=== PATIENT | female | born 1955 | race Caucasian/White ===

== ENCOUNTER → 2019-01-25 13:06 | Outpatient (CLI) | payer BC, SELFPAY ==
--- NOTE | 2019-01-25 | NVE_ITS ---
Venous Exam Indications: 729.5 Pain in limb. IMPRESSIONS 1. No evidence of deep vein thrombosis involving the left lower extremity 2. Acute superficial vein thrombosis involving the superficial veins of the left lower extremity including the lesser saphenous vein and the superficial veins of the distal thigh, where palpable knot was found. History: Left lower extremity pain. Risk factors: Hypertension. Obese. Patient states she had a pain in her left lower extremity after showering yesterday. She noticed a knot that was red and hot to the touch in the posterior lower thigh.She states she was told many years ago that she had vitamin K clotting factor. She doesn't currently take any blood thinning drugs. Left lower extremity venous duplex evaluation. Doppler flow study including spectral analysis, color and winslow scale imaging. Location: Vascular laboratory. Patient status: Outpatient. CRITICAL FINDINGS - Reported to: Dr. Zhang - Read back and verified. - 01/25/19 - 13:40 - LLE negative for DVT but + for SVT Tables: Venous flow and imaging: + + + + Location Overall Flow properties + + + + Left common femoral Patent Normal phasicity; spontaneous; normal augmentation; compressible + + + + Left saphenofemoral Patent Compressible junction + + + + Left profunda femoral Patent Compressible + + + + Left femoral Patent Normal phasicity; spontaneous; normal augmentation; compressible + + + + Left greater saphenous Patent Normal phasicity; spontaneous; normal augmentation; compressible + + + + Left popliteal Patent Normal phasicity; spontaneous; normal augmentation; compressible + + + + Left posterior tibial Patent Compressible + + + + Left peroneal Patent Compressible + + + + Left gastrocnemius Patent Compressible + + + + Left soleal Patent Compressible + + + + Left lesser saphenous Totally occluded Noncompressible
== END ==
PROVIDERS: PCP Family Medicine; Visit Provider Family Medicine
DX: M79.662 Pain in left lower leg (principal)
CPT/HCPCS: 93971

== ENCOUNTER → 2019-02-11 13:44 | Outpatient (CLI) | payer BC, SELFPAY ==
--- NOTE | 2019-02-11 14:05 | CT_ITS ---
CT angio chest HISTORY: Shortness of air ITS.REASON: HYPOXIA, MS CHANGES ORDERING PHYSICIAN: Judson Zhang PATIENT AGE: 63 years COMPARISON: None TECHNIQUE: Axial images obtained following the administration of 75 mL of Omnipaque 350 . Sagittal, and coronal reformatted images are also generated and reviewed. All CT scans at the facility use one or more dose reduction, viz: automated exposure control, ma/kV adjustment per patient size (including targeted exams where dose is matched to indication, i.e. head), or iterative reconstruction technique FINDINGS: Left lobe of the thyroid gland is slightly enlarged with some heterogeneous decreased attenuation suggesting thyroid nodule. Thyroid ultrasound suggested for further evaluation. The thyroid gland slightly deviated toward the right at this region. There is a variant origin of the right subclavian artery traversing posterior to the esophagus. There is dilatation of the origin of the right subclavian artery at 2.4 cm.. No evidence of aortic dissection or tortuosity of the distal descending aorta. No evidence of pulmonary embolus. Normal heart size. No evidence pericardial effusion. No mediastinal or hilar mass or adenopathy. Calcified granuloma is present in the right upper lobe medially. There is an unusual lobulated soft tissue mass in the right lower lobe. This begins more centrally in the right lower lobe and extends inferiorly in a glovelike appearance with fingers of the mass extending inferiorly adjacent to the segmental pulmonary arteries in the right lower lobe posteriorly. The largest AP diameter of the soft tissue lesion is 3.4 cm with the largest transverse dimension measuring 2 cm and extending cephalad to caudad for at least 4 cm. The small segmental bronchi are obliterated at this region and this may actually arise within the small bronchi expanding them. In the right lower lobe distal to the soft tissue mass there are multiple small alveolar opacities consistent with postobstructive pneumonia. No effusions are evident. There is mild scarring within the lingula. Upper abdominal images show a low dense right adrenal mass at 2.9 x 2.7 cm. Consistent with an adenoma. There is mild splenomegaly at 13 cm. Prior gastric bypass surgery. There is an isodense hepatic lesion at 1.7 cm in the right hepatic lobe anteriorly and may represent a hepatic cyst. Degenerative changes present in the thoracic spine. IMPRESSION: 1. Lobulated 4 x 3.4 x 2 cm posterior basal segment right lower lobe mass as described above which has a glove like appearance causing obliteration of the segmental bronchi with postobstructive pneumonitis. This may actually be filling and expanding the bronchi. Neoplasm is considered. Impacted bronchi with dilatation is also a consideration. Bronchoscopy suggested for further evaluation. Follow-up is recommended. 2. 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 Enlarged left lobe of the thyroid gland. Consider ultrasound for further evaluation 4. Other nonacute findings as described above including probable right adrenal adenoma
--- NOTE | 2019-02-11 14:05 | CT_ITS ---
CT head/brain wo con HISTORY: ITS.REASON: HYPOXIA, MS CHANGES ORDERING PHYSICIAN: Judson Zhang PATIENT AGE: 63 years COMPARISON: None TECHNIQUE: Axial images obtained without contrast. Brain and bone windows reviewed. All CT scans at the facility use one or more dose reduction, viz: automated exposure control, ma/kV adjustment per patient size (including targeted exams where dose is matched to indication, i.e. head), or iterative reconstruction technique. FINDINGS: No midline shift, mass effect, intracranial hemorrhage, hydrocephalus, or extra-axial fluid collection is evident. Patchy decreased attenuation is present in the periventricular regions which may be due to ischemic gliotic change from microvascular disease. Small exostosis involving the frontal bone on the left. No mastoid effusion. No sinus air-fluid levels.. IMPRESSION: No acute intracranial findings Hypoattenuation in the periventricular region which may be due to ischemic change from microvascular disease.
[2019-02-11 14:25] LABS: Blood Urea Nitrogen 21 mg/dL (7-18); Creatinine,Serum 0.76 mg/dL (0.55-1.02); Estimated Glomerular Filt Rate 77 ml/min (>60); GFR (African American) 93 ML/MIN (>60)
== END ==
PROVIDERS: Visit Provider Family Medicine
DX: R09.02 Hypoxemia (principal); R41.82 Altered mental status, unspecified
CPT/HCPCS: 36415; 70450; 71275; 82565; 84520

== ENCOUNTER → 2019-03-01 13:17 | Outpatient (CLI) | payer BC, SELFPAY ==
[2019-03-01 16:39] LABS: D-Dimer 505 ng/mL (0-400)
== END ==
PROVIDERS: Visit Provider Family Medicine
DX: I82.419 Acute embolism and thrombosis of unspecified femoral vein (principal); R79.89 Other specified abnormal findings of blood chemistry
CPT/HCPCS: 36415; 85378

== ENCOUNTER 2020-02-09 13:03 | Inpatient (IN) | payer OTHER, MEDICAID, SELFPAY ==
[2020-02-09] VITALS (17 sets, daily range): BP systolic 95–177; BP diastolic 59–86; PULSE 71–95; RESP 18–26; TEMP 36.6–37.2; O2SAT 85–98; BMI 39.4; BMI 43.7
--- NOTE | 2020-02-09 13:04 | HMH.EDGENADL ---
ED Disposition Clinical Impression: Acute respiratory failure with hypoxia and hypercapnia, Pneumonia, COPD exacerbation Disposition: Admitted As Inpatient Condition on Discharge: Serious Referrals: Provider,Referral, [Primary Care Provider] - - Critical Care Critical Care Time: Yes Attestation: On , the high probability of a clinically significant, sudden or life threatening deterioration of the following system(s) required my full and direct attention, intervention and personal management. The time I documented below is in addition to time spent performing reported procedures but includes the following listed in this critical care notation. Total Critical Care Time: 35 Vital system(s) involved:: Respiratory Failure My critical care processes included: Assessment & monitoring of V/S, Initial and Re-exams, Data Review/Interpretation, Coordinating Care, Medication Orders and management, Documentation Medical Decision Making - Tj Inquiry Pt receiving controlled substance: No Vital Signs: 02/09/20 13:04 02/09/20 13:05 02/09/20 13:55 Temperature 98.2 F Temperature Source Rectal Pulse Rate 80 Pulse Rate [Right] 81 78 Respiratory Rate 26 H Blood Pressure [Right Arm] 95/59 L 142/68 H Blood Pressure Mean [Right Arm] 71 92 Blood Pressure Source [Right Arm] Automatic Cuff Blood Pressure Position [Right Arm] Sitting 02 Sat by Pulse Oximetry 85 L 92 L 93 L Oxygen Delivery Method Nasal Cannula Nasal Cannula Aerosol Mask Oxygen Flow Rate (LPM) 4 3 02/09/20 14:15 02/09/20 14:56 Temperature Temperature Source Pulse Rate 78 Pulse Rate [Right] 76 Respiratory Rate Blood Pressure [Right Arm] 140/71 Blood Pressure Mean [Right Arm] 94 Blood Pressure Source [Right Arm] Automatic Cuff Blood Pressure Position [Right Arm] Sitting 02 Sat by Pulse Oximetry 85 L Oxygen Delivery Method BiPAP Oxygen Flow Rate (LPM) - Lab Data Lab Results 02/09/20 13:11: Specimen Source Left radial, O2 % 3lpm nc, ABG pH 7.27 L, ABG pCO2 103.2 H, ABG pO2 49.7 L, ABG HCO3 46.4 H, ABG Total CO2 49.6 H, ABG O2 Saturation 84 L*, ABG Base Excess 19.5 H, Berhane Test Acceptable 02/09/20 13:15: WBC 8.0, RBC 3.30 L, Hgb 10.9 L, Hct 35.2 L, MCV 106.7 H, MCH 33.1 H, MCHC 31.1 L, RDW 14.4, Plt Count 254, MPV 7.6, Neut % (Auto) 82.7 H, Lymph % (Auto) 11.4, [place] % (Auto) 2.6, Eos % (Auto) 1.2, Baso % (Auto) 2.1 H, Neut # (Auto) 6.6, Lymph # (Auto) 0.9, [place] # (Auto) 0.2, Eos # (Auto) 0.1, Baso # (Auto) 0.2 02/09/20 13:15: Sodium 139, Potassium 3.7, Chloride 83 L, Carbon Dioxide 55 H*, Anion Gap 4.7 L, BUN 16, Creatinine 0.40 L, Estimated GFR 161, Est GFR ( Amer) 195, Glucose 263 H, Calcium 8.5, Total Bilirubin 0.7, AST 29, ALT 18, Alkaline Phosphatase 110, Troponin I < 0.01, Total Protein 7.2, Albumin 4.2, Globulin 3.0, Albumin/Globulin Ratio 1.4 02/09/20 13:15: Lactate 1.2 02/09/20 13:27: Urine Color Yellow, Urine Appearance Clear, Urine pH 6.0, Ur Specific [place] 1.020, Urine Protein Negative, Urine Glucose (UA) 2+, Urine Ketones Negative, Urine Blood Negative, Urine Nitrate Negative, Urine Bilirubin Negative, Urine Urobilinogen 0.2, Ur Leukocyte Esterase Negative, Urine RBC Occasional, Urine WBC None, Ur Squamous Epith Cells Occasional, Urine Bacteria None Result diagrams: 02/09/20 13:15 02/09/20 13:15 Orders (Tests/Meds): ED MEDICATIONS Generic Name Dose Route Start Last Admin Trade Name Freq PRN Reason Stop Dose Admin Ceftriaxone Sodium 1 gm/ 50 mls @ 100 mls/hr 02/09/20 14:45 02/09/20 14:47 Sodium Chloride IV 02/23/20 14:44 100 mls/hr Q24H DANN Administration Protocol Azithromycin 500 mg/ Sodium 250 mls @ 250 mls/hr 02/09/20 14:45 02/09/20 15:06 Chloride IV 02/23/20 14:44 250 mls/hr Q24H DANN Administration Protocol Discontinued Medications Generic Name Dose Route Start Last Admin Trade Name Freq PRN Reason Stop Dose Admin Albuterol/Ipratropium 3 ml 02/09/20 13:20 0
--- NOTE | 2020-02-09 13:06 | ECG_ITS ---
APPROVED REPORT Exam: Resting ECG HR:84 bpm ECG Measurements Heart Rate 84 AXES PA 142 P 35 QRSd 92 QRS 76 QT 398 T 69 QTc 470 <Conclusion> Normal sinus rhythm Normal ECG Electronically signed by : Aaron Cornejo, 02/09/2020 21:53:37
--- NOTE | 2020-02-09 13:11 | XR_ITS ---
PROCEDURE: XR CHEST PORTABLE CLINICAL HISTORY: soa Shortness of air COMPARISON: CXR CHEST(2 VIEWS-NOT PORTABLE) from 05/27/[address] angio chest from 02/11/2019 XR CHEST PORTABLE from 10/21/2019 FINDINGS: Cardiomegaly without failure. There is consolidation with effusion in the right lung base. A linear opacity overlies the left upper hemithorax. May be something upon or within the patient. No acute bony abnormalities. IMPRESSION: Right lower lobe consolidation/atelectasis with effusion Dictated by: Behrane Oden MD 02/09/2020 14:23 Electronically signed by Berhane Oden MD in [place] 02/09/2020 14:23
[2020-02-09 13:32] LABS: ABG Base Excess 19.5 mmol/L (-2.4-2.3); ABG HCO3 46.4 mmhg (22.0-26.0); ABG Oxygen Saturation 84 % (90-100); ABG PH 7.27 mmol/L (7.35-7.45); ABG TCO2 49.6 mmhg (23-27)
[2020-02-09 13:34] LABS: Allen's Test Acceptable; Source Left Radial
[2020-02-09 13:37] LABS: ABG PCO2 103.2 mmhg (35.0-45.0); ABG PO2 49.7 mmhg (80-100)
[2020-02-09 13:39] LABS: Basophils # 0.2 K/mm3 (0-0.2); Basophils % 2.1 % (0.1-2.0); Eosinophils # 0.1 K/mm3 (0.0-0.4); Eosinophils % 1.2 % (0.1-12.0); Hematocrit 35.2 % (37.0-47.0); Hemoglobin 10.9 g/dL (12.2-16.2); Lymphocytes # 0.9 K/mm3 (0.7-4.5); Lymphocytes % 11.4 % (10-50); Mean Corpuscular HGB Conc 31.1 g/dL (31.8-35.4); Mean Corpuscular Hemoglobin 33.1 pg (27.0-31.2); Mean Corpuscular Volume 106.7 fl (81-99); Mean Platelet Volume 7.6 fl (7.4-10.4); Monocytes # 0.2 K/mm3 (0.1-1.0); Monocytes % 2.6 % (1.7-9.3); Neutrophils # 6.6 K/mm3 (1.8-7.8); Neutrophils % 82.7 % (37.0-80.0); Platelet Count 254 K/mm3 (142-424); Red Cell Distribution Width 14.4 % (11.5-17.5)
[2020-02-09 13:47] LABS: Lactic Acid 1.2 mmol/L (0.7-2.1)
[2020-02-09 13:48] LABS: Alanine Aminotransferase 18 U/L (12-78); Albumin Level 4.2 g/dl (3.5-5.0); Albumin/Globulin Ratio 1.4 (1.1-1.8); Alkaline Phosphatase 110 U/L (38-126); Aspartate Amino Transferase 29 U/L (14-36); Bilirubin,Total 0.7 mg/dl (0.2-1.3); Blood Urea Nitrogen 16 mg/dl (7-17); Calcium 8.5 mg/dl (8.4-10.2); Chloride 83 mmol/L (98-107); Estimated Glomerular Filt Rate 161 ml/min (>60); GFR (African American) 195 ML/MIN (>60); Glucose 263 mg/dl (74-100); Potassium 3.7 mmoL/L (3.5-5.1); Sodium 139 mmol/L (136-145); Total Protein,Serum 7.2 g/dl (6.3-8.2)
--- NOTE | 2020-02-09 13:49 | PC.NURSE ---
RT at bedside giving treatment and placing pt on biPap
--- NOTE | 2020-02-09 13:51 | PC.NURSE ---
WHILE TRIAGING PT AND OBTAINING V/S PT BECAME CYANOTIC WITH SATS IN THE 50s, IMMEDIATELY CALLED MD AT BEDSIDE, PT PLACE ON 100% NON-REBREATHER AND CAME TOO. RT CALLED FOR PT TO BE PLACE ON BIPAP AND RT AT BESIDE
[2020-02-09 13:57] LABS: Anion Gap 4.7 mEq/L (5-15); Carbon Dioxide 55 mmol/L (22.0-30.0)
[2020-02-09 13:59] LABS: Microscopic, Urine URINE MICROSCOPIC (MICROSCOPIC)
[2020-02-09 14:00] LABS: Appearance,Urine CLEAR (Clear); Bilirubin,Urine Negative (Negative); Blood, Urine Negative (Negative); Color,Urine YELLOW (Yellow); Glucose,Urine (UA) 2+ (Negative); Ketones,Urine Negative (Negative); Leukocyte Esterase,Urine Negative (Negative); Nitrate,Urine Negative (Negative); Protein,Urine Negative (Negative); Urobilinogen,Urine 0.2 EU/dl (0.2)
[2020-02-09 14:00] LABS: Troponin I < 0.01 ng/ml (0.00-0.034)
[2020-02-09 14:07] LABS: RBC,Urine Occasional #/hpf (0-3); Squamous Epithelial Cell,Urine Occasional #/hpf (0-5)
[2020-02-09 15:25] LABS: ABG HCO3 61.7 mmhg (22.0-26.0); ABG Oxygen Saturation 95 % (90-100); ABG PH 7.22 mmol/L (7.35-7.45); ABG PO2 81.5 mmhg (80-100); ABG TCO2 66.4 mmhg (23-27)
--- NOTE | 2020-02-09 15:28 | PC.NURSE ---
RT calling ABG results to Dr Harris at this time.
--- NOTE | 2020-02-09 15:29 | PC.NURSE ---
speaking to RT about blood gas results
--- NOTE | 2020-02-09 15:39 | PC.NURSE ---
speaking to Dr Melendez
[2020-02-09 15:53] LABS: Oxygen 75 %; Source L BRACHIAL; Vent Rate 20
[2020-02-09 15:54] LABS: ABG PCO2 153.2 mmhg (35.0-45.0)
--- NOTE | 2020-02-09 16:27 | P.CONPHA_ITS ---
[facility] Pharm[facility] VTE Monitoring - Patient Demographics Admission date: 02/09/20 Report Date: 02/09/20 Time: 16:27 Allergies/Adverse Reactions: Patient Allergies diclofenac Allergy (Verified 10/21/19 14:39) Unknown allergy reaction Height: 1.63 m Weight: 104.326 kg Patient Problems: Current Active Problems COPD exacerbation (Acute) Acute respiratory failure with hypoxia and hypercapnia (Acute) Pneumonia (Acute) - VTE Risk Labs: VTE Related Lab Results Hgb 10.9 g/dL (12.2-16.2) L 02/09/20 13:15 Hct 35.2 % (37.0-47.0) L 02/09/20 13:15 Plt Count 254 K/mm3 (142-424) 02/09/20 13:15 BUN 16 mg/dl (7-17) 02/09/20 13:15 Creatinine 0.40 mg/dl (0.52-1.04) L 02/09/20 13:15 - Prophylaxis VTE Prophylaxis Ordered?: Yes Types of VTE Prophylaxis: TEDS Knee High, Pharmacological Location of Applied Device: Bilateral Lower Extremeties Pharmacologic Type: Other (ELIQUIS) - VTE Diagnosis Confirmed Treatment or plan recommended: Continue Current Treatment
--- NOTE | 2020-02-09 17:20 | HMH.HP ---
*Admission Date: 02/09/20 *Chief complaint: Acute respiratory failure *History of present illness: Ms. Jung is a 64-year-old white female with a history of oxygen dependent COPD; status post right lower lobectomy for lung cancer last year who was brought in from home by EMS in acute respiratory failure. History from the ER is that she had not been feeling well for 2 or 3 days and her called EMS. On arrival to the home her oxygen sat was 93%. She initially did not want to be transported but her insisted she come to the hospital. In route she was placed on 6 L of nasal oxygen, administered a nebulizer treatment and IV Solu-Medrol. On arrival to the ER she began complaining of nausea and started dry heaving. She became cyanotic and her O2 sats dropped into the 50s. She was placed on nonrebreather mask and sats improved. Blood gas was obtained and she was found to be in hypercapnic respiratory failure. Her initial pH was 7.27 with a PCO2 of 103. Labs showed a normal white count. She had a significant anion gap of 55. Chest x-ray showed right lower lobe consolidation/atelectasis with pleural effusion. She was placed on BiPAP and admitted to the stepdown unit. The time of my exam she is a bit somnolent but does respond to questions appropriately. History is difficult to obtain because of the BiPAP. She does states she is breathing better and has no complaints of chest pain or nausea at this time. Her O2 sats are ranging from 85 to 93%. [facility] History Medical History: Reports:: Cancer (lung), Cerebrovascular Accident, Hypertension, Lung Disease (O2 dependent COPD) Denies:: Diabetes Mellitus Type 1 *Have you ever received a pneumonia vaccine?: No *Have you received a flu vaccine this season?: No Other Medical History: Reports: Other (DVT) Laterality Cases: Bilateral: Tonsillectomy Other Surgeries: Yes: Cholecystectomy, Tubal Ligation, Other (Right lower lobectomy) - *Social History Smoking Status: Former smoker # Packs/Day (cigarettes): 1 Alcohol Intake: never Last Used Substance: days (ago) *Occupational Status:: disabled Housing: house *Travel in the last 8 weeks: None Family Hx:: Unable to obtain Review of Systems - Review of Systems Review of systems:: unable to obtain (Patient is on BiPAP) Meds Home Medications Medication Instructions Recorded Confirmed Type Apixaban [Eliquis 5mg tab] 5 mg PO BID 02/09/20 02/09/20 History Aspirin [Aspirin 81mg EC Tab] 81 mg PO DAILY 02/09/20 02/09/20 History Atorvastatin Calcium [Atorvastatin 80 mg PO HS 02/09/20 02/09/20 History 80mg Tab] Ipratropium/Albuterol Sulfate 3 ml IH QIDP PRN 02/09/20 02/10/20 History [Duoneb 3mL neb] bisoproloL fumarate [Bisoprolol 5 mg PO DAILY 02/09/20 02/09/20 History Fumarate] diazePAM [diazePAM 5mg Tablet] 5 mg PO TIDP PRN 02/09/20 02/10/20 History Fluoxetine HCl 20 mg PO DAILY 02/10/20 02/10/20 History Omeprazole [Omeprazole 40mg 40 mg PO DAILY 02/10/20 02/10/20 History Capsule] Torsemide 10 mg PO DAILY 02/10/20 02/10/20 History Allergies Allergy/AdvReac Type Severity Reaction Status Date / Time diclofenac Allergy Unknown Verified 10/21/19 14:39 allergy reaction Exam Vital signs and Labs for Last 24 Hours: Temp Pulse Resp BP Pulse Ox 98.7 F 72 20 144/71 H 98 02/09/20 16:19 02/09/20 16:19 02/09/20 16:19 02/09/20 16:19 02/09/20 16:16 Laboratory Results - last 24 hr 02/09/20 13:11: Specimen Source Left radial, O2 % 3lpm nc, ABG pH 7.27 L, ABG pCO2 103.2 H, ABG pO2 49.7 L, ABG HCO3 46.4 H, ABG Total CO2 49.6 H, ABG O2 Saturation 84 L*, ABG Base Excess 19.5 H, Berhane Test Acceptable 02/09/20 13:15: WBC 8.0, RBC 3.30 L, Hgb 10.9 L, Hct 35.2 L, MCV 106.7 H, MCH 33.1 H, MCHC 31.1 L, RDW 14.4, Plt Count 254, MPV 7.6, Neut % (Auto) 82.7 H, Lymph % (Auto) 11.4, [place] % (Auto) 2.6, Eos % (Auto) 1.2, Baso % (Auto) 2.1 H, Neut # (Auto) 6.6, Lymph # (Auto) 0.9, [place] # (Auto) 0.2,
[2020-02-09 17:53] LABS: POC Glucose,Bedside 283 (70-110)
[2020-02-09 17:57] LABS: ABG HCO3 52.9 mmhg (22.0-26.0); ABG Oxygen Saturation 90 % (90-100); ABG PH 7.27 mmol/L (7.35-7.45); ABG PO2 62.4 mmhg (80-100); ABG TCO2 56.5 mmhg (23-27); Oxygen 50% %
[2020-02-09 17:58] LABS: Allen's Test ACCEPTABLE; Pressure Support BIPAP 22/10; Source Right Radial; Vent Rate 24
[2020-02-09 17:59] LABS: ABG PCO2 117.6 mmhg (35.0-45.0)
[2020-02-09 18:09] LABS: Troponin I < 0.01 ng/ml (0.00-0.034)
[2020-02-09 20:19] LABS: POC Glucose,Bedside 258 (70-110)
[2020-02-09 20:35] LABS: Troponin I < 0.01 ng/ml (0.00-0.034)
--- NOTE | 2020-02-09 20:39 | PC.NURSE ---
off bipap placed on 4 l nc to eat, o2 sats 84-85 sustained. o2 increased to 6 l nc o2 sats now sustaining 90% while eating supper. will continue to monitor.
--- NOTE | 2020-02-09 22:01 | PC.NURSE ---
patient sustaining sats of 85% on 40% fio2, fio2 increased back up to 50%. will continue to monitor.
[2020-02-10] VITALS (20 sets, daily range): BP systolic 103–167; BP diastolic 43–84; PULSE 70–98; RESP 16–27; TEMP 36.8–37.9; O2SAT 72–99; BMI 44.4; BMI 45.3; BMI 45.4
--- NOTE | 2020-02-10 03:33 | PC.NURSE ---
She has been resting in bed. Continues on bipap @ 50 FiO2. She is voiding per f/c. Her urine is pink. NSR on telemetry. VSS. Previous nurse reported that she wore 6LPM n/c while eating. She is A&Ox4.
--- NOTE | 2020-02-10 05:50 | PC.NURSE ---
Pt's O2 decreased to 72% while taking a drink of her water. Rebounded quickly once bipap was applied.
[2020-02-10 06:10] LABS: POC Glucose,Bedside 290 (70-110)
[2020-02-10 06:15] LABS: Basophils % 0.4 % (0.1-2.0); Eosinophils % 0.1 % (0.1-12.0); Hematocrit 31.8 % (37.0-47.0); Lymphocytes # 0.3 K/mm3 (0.7-4.5); Lymphocytes % 5.9 % (10-50); Mean Corpuscular HGB Conc 30.3 g/dL (31.8-35.4); Mean Corpuscular Hemoglobin 32.7 pg (27.0-31.2); Mean Corpuscular Volume 108.1 fl (81-99); Mean Platelet Volume 7.9 fl (7.4-10.4); Monocytes # 0.1 K/mm3 (0.1-1.0); Monocytes % 1.7 % (1.7-9.3); Neutrophils # 4.4 K/mm3 (1.8-7.8); Neutrophils % 91.9 % (37.0-80.0); Platelet Count 209 K/mm3 (142-424); Red Blood Count 2.94 M/mm3 (4.20-5.40); Red Cell Distribution Width 14.3 % (11.5-17.5); White Blood Count 4.8 K/mm3 (4.8-10.8)
[2020-02-10 06:22] LABS: MANUAL DIFFERENTIAL MANUAL DIFFERENTIAL (MANUAL DIFF)
[2020-02-10 06:24] LABS: Blood Urea Nitrogen 20 mg/dl (7-17); Calcium 8.4 mg/dl (8.4-10.2); Chloride 86 mmol/L (98-107); Estimated Glomerular Filt Rate 161 ml/min (>60); GFR (African American) 195 ML/MIN (>60); Glucose 279 mg/dl (74-100); Sodium 138 mmol/L (136-145)
[2020-02-10 06:31] LABS: Creatinine Clearance Estimated 43 mL/min (50-200)
[2020-02-10 06:32] LABS: Carbon Dioxide 50 mmol/L (22.0-30.0); Hemoglobin 9.7 g/dL (12.2-16.2)
[2020-02-10 06:51] LABS: Hemoglobin A1C 6.7 % (4.0-6.0)
--- NOTE | 2020-02-10 08:16 | CA_ITS ---
APPROVED REPORT EXAM: Comprehensive 2D, Doppler, and color-flow Echocardiogram Synthetic Filament Extruder: Saray Marino RVT Ht: 5 ft 1 in Wt: 246lbs BSA: 2.06 BP: 103/43 mmHg Indications: phtn,resp failure,pneumonia,htn,ex smoker,home o2,pt on bipap TDS-PT FLAT ON BACK 2D Dimensions LVOT 1.88 cm (M/F) 1.5-2.5 M-Mode Dimensions RVDd 3.30 cm (0.9-2.6) LVDd 4.50 cm (3.5-5.7) LVDs 2.97 cm (3.5-5.7) IVSd 0.92 cm (0.6-1.1) PWd 0.87 cm (0.6-1.1) EF (Teich) 63.00% FS 34.00% EDV (Teich) 92.40 mL ESV (Teich) 34.20 mL LV Diastology E/A Ratio 0.80 Mitral Valve MV A Velocity 90.00 (40-130 cm/s) Left Ventricle Left atrium is mildly enlarged, left ventricle is normal size, mild concentric left ventricular hypertrophy, visually estimated ejection fraction 55% with no regional wall motion abnormality, grade 1 diastolic dysfunction seen without tissue Doppler evidence of raise left atrial pressure. Right Ventricle Right atrium is mildly enlarged, right ventricle is moderately enlarged with normal contractility. Aortic Valve Aortic valve is grossly normal, there is no aortic stenosis aortic insufficiency. Mitral Valve Mitral valve is grossly normal, there is mild mitral regurgitation. Tricuspid Valve Tricuspid valve is grossly normal, there is mild tricuspid regurgitation, tricuspid regurgitation jet velocity is inadequate for calculation of the right ventricular systolic pressure, inferior vena cava is not well-visualized. Pulmonic Valve Pulmonic valve is grossly normal. Great Vessels Aortic root is normal size. Pericardium Small pericardial effusion and anterior echo-free space seen. Conclusion 1. Mild biatrial enlargement, normal left ventricular size, mild concentric left ventricular hypertrophy, visually estimated ejection fraction 55% with no regional wall motion abnormality, grade 1 diastolic dysfunction seen without tissue Doppler evidence of raise left atrial pressure. 2. Moderately enlarged right ventricle with normal contractility. 3. Mild mitral and tricuspid regurgitation. 4. Anterior echo-free space and small pericardial effusion noted. Electronically signed by : Matthew Hendricks, 02/10/2020 13:30:23
--- NOTE | 2020-02-10 08:26 | HMH.ACPN2 ---
<Pam Neri - Last Filed: 02/10/20 08:26> Internal Medicine - PN: Subj *Date: 02/10/20 *Time: 07:55 Interval history: The patient is resting quietly in bed with bipap in place. She arouses easily to voice and answers appropriately. She denies any pain or GI complaint. She notes occasional productive cough but feels her breathing is better this morning. Exam Vital signs and Labs for Last 24 Hours: Temp Pulse Resp BP Pulse Ox 98.3 F 80 20 103/43 L 99 02/10/20 08:00 02/10/20 06:25 02/10/20 04:00 02/10/20 06:00 02/10/20 06:25 Laboratory Results - last 24 hr 02/09/20 13:11: Specimen Source Left radial, O2 % 3lpm nc, ABG pH 7.27 L, ABG pCO2 103.2 H, ABG pO2 49.7 L, ABG HCO3 46.4 H, ABG Total CO2 49.6 H, ABG O2 Saturation 84 L*, ABG Base Excess 19.5 H, Berhane Test Acceptable 02/09/20 13:15: WBC 8.0, RBC 3.30 L, Hgb 10.9 L, Hct 35.2 L, MCV 106.7 H, MCH 33.1 H, MCHC 31.1 L, RDW 14.4, Plt Count 254, MPV 7.6, Neut % (Auto) 82.7 H, Lymph % (Auto) 11.4, [place] % (Auto) 2.6, Eos % (Auto) 1.2, Baso % (Auto) 2.1 H, Neut # (Auto) 6.6, Lymph # (Auto) 0.9, [place] # (Auto) 0.2, Eos # (Auto) 0.1, Baso # (Auto) 0.2 02/09/20 13:15: Sodium 139, Potassium 3.7, Chloride 83 L, Carbon Dioxide 55 H*, Anion Gap 4.7 L, BUN 16, Creatinine 0.40 L, Estimated GFR 161, Est GFR ( Amer) 195, Glucose 263 H, Calcium 8.5, Total Bilirubin 0.7, AST 29, ALT 18, Alkaline Phosphatase 110, Troponin I < 0.01, Total Protein 7.2, Albumin 4.2, Globulin 3.0, Albumin/Globulin Ratio 1.4 02/09/20 13:15: Lactate 1.2 02/09/20 13:27: Urine Color Yellow, Urine Appearance Clear, Urine pH 6.0, Ur Specific [place] 1.020, Urine Protein Negative, Urine Glucose (UA) 2+, Urine Ketones Negative, Urine Blood Negative, Urine Nitrate Negative, Urine Bilirubin Negative, Urine Urobilinogen 0.2, Ur Leukocyte Esterase Negative, Urine RBC Occasional, Urine WBC None, Ur Squamous Epith Cells Occasional, Urine Bacteria None 02/09/20 14:58: Specimen Source L brachial, O2 % 75, ABG pH 7.22 L*, ABG pCO2 153.2 H, ABG pO2 81.5, ABG HCO3 61.7 H, ABG Total CO2 66.4 H, ABG O2 Saturation 95, ABG Base Excess 34.0 H, Vent Rate 20, Tidal Volume bipap 24/0502/09/20 17:13: Troponin I < 0.01 02/09/20 17:41: POC Glucose 283 H 02/09/20 17:50: Specimen Source Right radial, O2 % 50%, ABG pH 7.27 L, ABG pCO2 117.6 H, ABG pO2 62.4 L, ABG HCO3 52.9 H, ABG Total CO2 56.5 H, ABG O2 Saturation 90, ABG Base Excess 26.0 H, Berhane Test Acceptable, Vent Rate 24 02/09/20 19:37: Troponin I < 0.01 02/09/20 20:12: POC Glucose 258 H 02/10/20 05:40: POC Glucose 290 H 02/10/20 05:45: Sodium 138, Potassium 4.0, Chloride 86 L, Carbon Dioxide 50 H*, Anion Gap 6.0, BUN 20 H, Creatinine 0.40 L, Estimated Creat Clear 43, Estimated GFR 161, Est GFR ( Amer) 195, Glucose 279 H, Calcium 8.4 02/10/20 05:45: WBC 4.8 D, RBC 2.94 L, Hgb 9.7 L D, Hct 31.8 L, MCV 108.1 H, MCH 32.7 H, MCHC 30.3 L, RDW 14.3, Plt Count 209, MPV 7.9, Neut % (Auto) 91.9 H, Lymph % (Auto) 5.9 L, [place] % (Auto) 1.7, Eos % (Auto) 0.1, Baso % (Auto) 0.4, Neut # (Auto) 4.4, Lymph # (Auto) 0.3 L, [place] # (Auto) 0.1, Eos # (Auto) 0.0, Baso # (Auto) 0.0 02/10/20 05:45: Hemoglobin A1c 6.7 H I & O for Last 24 hours: Intake & Output 02/07/20 02/08/20 02/09/20 02/10/20 11:59 11:59 11:59 11:59 Intake Total 1167 / 1167 Output Total 775 / 775 Balance 392 / 392 Weight 246 lb 8 oz - Constitutional no acute distress - *Routine Respiratory Exam Comments: bipap in place; generally diminished breath sounds R > L with expiratory wheezes throughout - *Routine Cardiovascular Exam Present: RRR - *Routine Abdominal Exam Present: soft, normoactive bowel sounds, obese. Absent: tenderness, distended, rebound, guarding, rigid - *Routine Extremities Exam Present: pulses intact. Absent: calf tenderness Comments: trace bilateral pedal/ankle edema - *Routine Neurological Exam Present: alert, oriented X3, moving all extremities, normal speech Assessment and P
[2020-02-10 09:01] LABS: Lymphocytes % 3 % (10-50); Monocytes % 1 % (2-9); Neutrophils % 96 % (42-76); Platelet Estimate Normal; Total Cells Counted 100
[2020-02-10 09:02] LABS: Macrocytosis 2+
[2020-02-10 09:11] LABS: ABG Base Excess 27.7 mmol/L (-2.4-2.3); ABG HCO3 52.6 mmhg (22.0-26.0); ABG Oxygen Saturation 95 % (90-100); ABG PO2 71.7 mmhg (80-100); ABG TCO2 55.3 mmhg (23-27)
[2020-02-10 09:13] LABS: Oxygen 50 %; Vent Rate 24
[2020-02-10 09:14] LABS: Allen's Test Non Applicable; Pressure Support 12; Source Left Brachial; Tidal Volume bipap 22/10
[2020-02-10 09:15] LABS: ABG PCO2 87.8 mmhg (35.0-45.0)
[2020-02-10 10:10] LABS: Microscopic, Urine URINE MICROSCOPIC (MICROSCOPIC)
[2020-02-10 10:14] LABS: Appearance,Urine TURBID (Clear); Bilirubin,Urine Negative (Negative); Blood, Urine 3+ (Negative); Color,Urine RED (Yellow); Glucose,Urine (UA) 3+ (Negative); Ketones,Urine 1+ (Negative); Leukocyte Esterase,Urine 2+ (Negative); Nitrate,Urine POSITIVE (Negative); Protein,Urine 3+ (Negative); Specific Gravity, Urine 1.015 (1.005-1.030)
[2020-02-10 10:16] LABS: Bacteria,Urine Trace /lpf; RBC,Urine TNTC #/hpf (0-3); Squamous Epithelial Cell,Urine Occasional #/hpf (0-5)
[2020-02-10 11:40] LABS: NT Pro Brain Natriuretic Pep. 408 pg/mL (0-125)
[2020-02-10 11:46] LABS: POC Glucose,Bedside 365 (70-110)
[2020-02-10 15:53] LABS: POC Glucose,Bedside 351 (70-110)
--- NOTE | 2020-02-10 16:36 | PC.NURSE ---
No acute changes noted this shift, pt has remained on bipap except for meals where she was placed on nasal cannula, pt has rested most of shift, alert and oriented x4, perrla, lung sounds are diminished t/o, absent RLL, good catheter remains in place, urine is noted to continue to be bright red in color with small clots, MD is aware, UA repeated this am, MD notified of those results, wants urine cultured and no changes to abx at this time, abd soft and nontender, active bowel sounds in all quads, 1+ nonpitting edema noted to BLE, no s/s of distress noted, vss, will continue to monitor for changes.
[2020-02-10 17:09] LABS: Hematocrit 30.7 % (37.0-47.0); Hemoglobin 9.4 g/dL (12.2-16.2)
--- NOTE | 2020-02-10 19:11 | INFXCTL.NOTE ---
report given to regulo
[2020-02-10 21:16] LABS: POC Glucose,Bedside 350 (70-110)
[2020-02-11] VITALS (30 sets, daily range): BP systolic 112–153; BP diastolic 49–89; PULSE 50–150; RESP 15–24; TEMP 36.4–37.2; O2SAT 88–99
[2020-02-11 05:58] LABS: Eosinophils % 0.2 % (0.1-12.0); Hemoglobin 8.8 g/dL (12.2-16.2); Lymphocytes # 0.4 K/mm3 (0.7-4.5); Lymphocytes % 5.5 % (10-50); Mean Corpuscular HGB Conc 30.1 g/dL (31.8-35.4); Mean Corpuscular Hemoglobin 31.8 pg (27.0-31.2); Mean Corpuscular Volume 105.7 fl (81-99); Mean Platelet Volume 7.7 fl (7.4-10.4); Monocytes # 0.3 K/mm3 (0.1-1.0); Monocytes % 4.7 % (1.7-9.3); Neutrophils # 6.1 K/mm3 (1.8-7.8); Neutrophils % 89.6 % (37.0-80.0); Platelet Count 237 K/mm3 (142-424); Red Blood Count 2.77 M/mm3 (4.20-5.40); Red Cell Distribution Width 14.5 % (11.5-17.5); White Blood Count 6.8 K/mm3 (4.8-10.8)
[2020-02-11 05:59] LABS: Hematocrit 29.2 % (37.0-47.0)
[2020-02-11 06:00] LABS: MANUAL DIFFERENTIAL MANUAL DIFFERENTIAL (MANUAL DIFF)
[2020-02-11 06:17] LABS: Hypochromasia 2+; Lymphocytes % 8 % (10-50); Macrocytosis 2+; Neutrophils % 88 % (42-76); Platelet Estimate Normal; Total Cells Counted 100
[2020-02-11 06:25] LABS: Blood Urea Nitrogen 25 mg/dl (7-17); Calcium 8.5 mg/dl (8.4-10.2); Chloride 86 mmol/L (98-107); Creatinine Clearance Estimated 43 mL/min (50-200); Estimated Glomerular Filt Rate 125 ml/min (>60); GFR (African American) 151 ML/MIN (>60); Glucose 295 mg/dl (74-100); Potassium 3.6 mmoL/L (3.5-5.1); Sodium 137 mmol/L (136-145)
[2020-02-11 06:36] LABS: Anion Gap 5.6 mEq/L (5-15); Carbon Dioxide 49 mmol/L (22.0-30.0)
[2020-02-11 06:39] LABS: POC Glucose,Bedside 305 (70-110)
--- NOTE | 2020-02-11 08:46 | HMH.ACPN2 ---
Internal Medicine - PN: Subj *Date: 02/11/20 *Time: 08:46 Interval history: Patient with no new complaints today. She is tolerating a regular diet. Off of Bi-pap now using a NC. Exam Vital signs and Labs for Last 24 Hours: Temp Pulse Resp BP Pulse Ox 97.9 F 50 L 15 153/80 H 97 02/11/20 07:40 02/11/20 06:33 02/11/20 06:00 02/11/20 06:00 02/11/20 06:33 Laboratory Results - last 24 hr 02/10/20 04:54: NT-Pro-B Natriuret Pep 408 H 02/10/20 05:45: Total Counted 100, Neutrophils % (Manual) 96 H, Lymphocytes % (Manual) 3 L, Monocytes % (Manual) 1 L, Platelet Estimate Normal, RBC Morphology Not Reportable, Macrocytosis 2+ 02/10/20 06:10: Urine Color Red, Urine Appearance Turbid, Urine pH 8.0, Ur Specific [place] 1.015, Urine Protein 3+, Urine Glucose (UA) 3+, Urine Ketones 1+, Urine Blood 3+, Urine Nitrate Positive, Urine Bilirubin Negative, Urine Urobilinogen 2.0, Ur Leukocyte Esterase 2+ A, Urine RBC Tntc, Urine WBC 5-10, Ur Squamous Epith Cells Occasional, Urine Bacteria Trace 02/10/20 08:11: Specimen Source Left brachial, O2 % 50, ABG pH 7.40, ABG pCO2 87.8 H, ABG pO2 71.7 L, ABG HCO3 52.6 H, ABG Total CO2 55.3 H, ABG O2 Saturation 95, ABG Base Excess 27.7 H, Berhane Test Non applicable, Vent Rate 24, Tidal Volume bipap 26/0702/10/20 11:28: POC Glucose 365 H* 02/10/20 15:38: POC Glucose 351 H* 02/10/20 17:03: Hgb 9.4 L, Hct 30.7 L 02/10/20 20:17: POC Glucose 350 H* 02/11/20 05:30: WBC 6.8 D, RBC 2.77 L, Hgb 8.8 L, Hct 29.2 L, MCV 105.7 H, MCH 31.8 H, MCHC 30.1 L, RDW 14.5, Plt Count 237, MPV 7.7, Neut % (Auto) 89.6 H, Lymph % (Auto) 5.5 L, [place] % (Auto) 4.7, Eos % (Auto) 0.2, Baso % (Auto) 0.0 L, Neut # (Auto) 6.1, Lymph # (Auto) 0.4 L, [place] # (Auto) 0.3, Eos # (Auto) 0.0, Baso # (Auto) 0.0, Total Counted 100, Neutrophils % (Manual) 88 H, Band Neutrophils % 4.0, Lymphocytes % (Manual) 8 L, Platelet Estimate Normal, Hypochromasia 2+, Macrocytosis 2+ 02/11/20 05:30: Sodium 137, Potassium 3.6, Chloride 86 L, Carbon Dioxide 49 H*, Anion Gap 5.6, BUN 25 H, Creatinine 0.50 L D, Estimated Creat Clear 43, Estimated GFR 125, Est GFR ( Amer) 151 D, Glucose 295 H, Calcium 8.5 02/11/20 05:41: POC Glucose 305 H* I & O for Last 24 hours: Intake & Output 02/08/20 02/09/20 02/10/20 02/11/20 23:59 23:59 23:59 23:59 Intake Total 540 / 540 1277 / 1277 320 / 320 Output Total 2850 / 2850 1400 / 1400 Balance 540 / -35 -1573 / -1573 -1080 / -1080 Weight 239 lb 4 oz 246 lb 14.684 oz - Constitutional no acute distress (conversant) - *Routine HEENT Exam Head: Present: normocephalic Eye: Present: EOMI ENT: Present: mucous membranes moist - *Routine Neck Exam Present: supple. Absent: lymphadenopathy - *Routine Respiratory Exam Present: decreased breath sounds (in the bases). Absent: wheezes - *Routine Cardiovascular Exam Present: RRR - *Routine Abdominal Exam Present: soft, normoactive bowel sounds. Absent: tenderness - *Routine Extremities Exam Present: edema (1+ bilateral legs). Absent: cyanosis, clubbing - *Routine Skin Exam Present: warm. Absent: rash - *Routine Neurological Exam Present: alert, oriented X3 Assessment and Plan (1) Acute respiratory failure with hypoxia and hypercapnia Current visit: Yes Status: Acute Category: Medical Code(s): J96.01 - Acute respiratory failure with hypoxia; J96.02 - Acute respiratory failure with hypercapnia (2) COPD exacerbation Current visit: Yes Status: Acute Category: Medical Code(s): J44.1 - Chronic obstructive pulmonary disease with (acute) exacerbation (3) Pneumonia Current visit: Yes Status: Acute Category: Medical Code(s): J18.9 - Pneumonia, unspecified organism (4) Hyperglycemia Current visit: Yes Status: Acute Category: Medical Code(s): R73.9 - Hyperglycemia, unspecified (5) Hypertension Current visit: Yes Status: Acute Category: Medical Code(s): I10 - Essential (primary) hypertension (6) History of CVA
[2020-02-11 11:54] LABS: POC Glucose,Bedside 402 (70-110)
--- NOTE | 2020-02-11 12:29 | ECG_ITS ---
APPROVED REPORT Exam: Resting ECG HR:148 bpm ECG Measurements Heart Rate 148 AXES QRSd 76 QRS 60 QT 310 T -56 QTc 486 <Conclusion> Atrial fibrillation with rapid ventricular response ST depression, consider subendocardial ischemia/ injury or digitalis effect Nonspecific T wave abnormality, probably digitalis effect Abnormal ECG Electronically signed by : Yobani Reed, 02/11/2020 22:21:32
--- NOTE | 2020-02-11 13:27 | ECG_ITS ---
APPROVED REPORT Exam: Resting ECG HR:70 bpm ECG Measurements Heart Rate 70 AXES SC 134 P 21 QRSd 88 QRS 50 QT 414 T 41 QTc 447 <Conclusion> Normal sinus rhythm NDST-T Changes Otherwise a Normal ECG Electronically signed by : Yobani Reed, 02/11/2020 22:19:44
--- NOTE | 2020-02-11 14:40 | PC.NURSE ---
at about 1220 noted patient heart rate to be irregular with a rate 130-150s. appeared to be in afib. stat ekg obtained and walked down to er at 1230. er doctor read as afib with rvr. notified md injection molding machine setter dr mccarty at 1237. md ordered 10mg bolus of cardizem iv and then to start cardizem drip and titrate to keep systolic >100. after push drip was started at 5mg/h. at 1315 noticed patient to have converted so another ekg obtained at 1327 that read normal sinus rhythm and notified md at 1330 who ordered to give 60mg po cardizem q8h and to stop drip 30mins after first dose. this was done and patient currently in normal sinus rhythm with heart rate in 60s.
--- NOTE | 2020-02-11 17:52 | PC.NURSE ---
patient has done well this shift. she has tolerated 3-4l of o2 all shift. no signs of sob, confusion or lethargy. she has slept most of day but is easy to wake up . she does ring out as needed. currently up and watching tv. states her glasses are missing. upon search of room no glasses found at this time. good bag continues to drain red with clots. still holding eliquis. since converting to normal sinus rhythm patient remains in that with a heart rate in the 60s. she has had no complaints. vitals stable will continue to monitor.
[2020-02-11 19:16] LABS: POC Glucose,Bedside 362 (70-110)
[2020-02-11 21:36] LABS: POC Glucose,Bedside 402 (70-110)
[2020-02-12] VITALS (20 sets, daily range): BP systolic 110–171; BP diastolic 49–77; PULSE 48–75; RESP 15–20; TEMP 36.7–36.9; O2SAT 89–98; BMI 35.9
--- NOTE | 2020-02-12 03:45 | PC.NURSE ---
Pt A&O. Currently resting in bed with 3L NC on. Pt wore Bipap for 3.5 hours this shift. She stated this AM that she couldn't handle it anymore and took it off. O2 sats are 94% at this time. Pt is currently Sinus [place] on telemetry. She has had declines in HR as low as upper 40s while sleeping. Pt has not c/o any discomfort. Other VSS. Will continue to monitor.
[2020-02-12 05:18] LABS: Basophils % 0.1 % (0.1-2.0); Eosinophils % 0.1 % (0.1-12.0); Hemoglobin 8.8 g/dL (12.2-16.2); Lymphocytes # 0.4 K/mm3 (0.7-4.5); Lymphocytes % 6.1 % (10-50); Mean Corpuscular HGB Conc 30.1 g/dL (31.8-35.4); Mean Corpuscular Hemoglobin 31.2 pg (27.0-31.2); Mean Corpuscular Volume 103.5 fl (81-99); Monocytes # 0.2 K/mm3 (0.1-1.0); Monocytes % 3.4 % (1.7-9.3); Neutrophils # 5.9 K/mm3 (1.8-7.8); Neutrophils % 90.3 % (37.0-80.0); Platelet Count 227 K/mm3 (142-424); Red Blood Count 2.82 M/mm3 (4.20-5.40); Red Cell Distribution Width 14.5 % (11.5-17.5); White Blood Count 6.5 K/mm3 (4.8-10.8)
[2020-02-12 05:23] LABS: Hematocrit 29.2 % (37.0-47.0)
[2020-02-12 05:25] LABS: MANUAL DIFFERENTIAL MANUAL DIFFERENTIAL (MANUAL DIFF)
[2020-02-12 05:43] LABS: Blood Urea Nitrogen 26 mg/dl (7-17); Calcium 8.5 mg/dl (8.4-10.2); Chloride 87 mmol/L (98-107); Estimated Glomerular Filt Rate 125 ml/min (>60); GFR (African American) 151 ML/MIN (>60); Glucose 319 mg/dl (74-100); Potassium 3.5 mmoL/L (3.5-5.1); Sodium 136 mmol/L (136-145)
--- NOTE | 2020-02-12 05:49 | PC.NURSE ---
RN notified of weight loss
[2020-02-12 06:03] LABS: Anion Gap 6.5 mEq/L (5-15); Carbon Dioxide 46 mmol/L (22.0-30.0); Creatinine Clearance Estimated 80 mL/min (50-200)
[2020-02-12 06:07] LABS: Lymphocytes % 3 % (10-50); Neutrophils % 91 % (42-76); Platelet Estimate Normal; Total Cells Counted 100
[2020-02-12 06:08] LABS: Hypochromasia 3+; Macrocytosis 2+
[2020-02-12 06:25] LABS: POC Glucose,Bedside 310 (70-110)
--- NOTE | 2020-02-12 08:22 | HMH.ACPN2 ---
Internal Medicine - PN: Subj *Date: 02/12/20 *Time: 08:22 Interval history: Patient with no new complaints today. She did go into a. fib with RVR yesterday. She converted fairly quickly back to NSR after a dose of IV Cardizem. Less blood in Greco catheter today. She used Bi-pap for a short time while sleeping last night. Exam Vital signs and Labs for Last 24 Hours: Temp Pulse Resp BP Pulse Ox 98.1 F 65 20 130/67 94 L 02/12/20 04:00 02/12/20 08:00 02/12/20 08:00 02/12/20 08:00 02/12/20 08:00 Laboratory Results - last 24 hr 02/11/20 11:24: POC Glucose 402 H* 02/11/20 16:40: POC Glucose 362 H* 02/11/20 21:14: POC Glucose 402 H* 02/12/20 04:50: WBC 6.5, RBC 2.82 L, Hgb 8.8 L, Hct 29.2 L, MCV 103.5 H, MCH 31.2, MCHC 30.1 L, RDW 14.5, Plt Count 227, MPV 8.0, Neut % (Auto) 90.3 H, Lymph % (Auto) 6.1 L, [place] % (Auto) 3.4, Eos % (Auto) 0.1, Baso % (Auto) 0.1, Neut # (Auto) 5.9, Lymph # (Auto) 0.4 L, [place] # (Auto) 0.2, Eos # (Auto) 0.0, Baso # (Auto) 0.0, Total Counted 100, Neutrophils % (Manual) 91 H, Band Neutrophils % 6.0, Lymphocytes % (Manual) 3 L, Platelet Estimate Normal, Hypochromasia 3+, Macrocytosis 2+ 02/12/20 04:50: Sodium 136, Potassium 3.5, Chloride 87 L, Carbon Dioxide 46 H*, Anion Gap 6.5, BUN 26 H, Creatinine 0.50 L, Estimated Creat Clear 80, Estimated GFR 125, Est GFR ( Amer) 151, Glucose 319 H, Calcium 8.5 02/12/20 06:11: POC Glucose 310 H* I & O for Last 24 hours: Intake & Output 0502/10/20 02/11/20 02/12/20 23:59 23:59 23:59 23:59 Intake Total 540 / 540 1277 / 1277 1703 / 1703 Output Total 2850 / 2850 2175 / 2175 Balance 540 / -35 -1573 / -1573 -472 / -472 Weight 239 lb 4 oz 246 lb 14.684 oz 195 lb 1 oz Microbiology Reports for the Last 24 Hours: Microbiology 02/09/20 13:15 Blood Blood Culture - Preliminary NO GROWTH AFTER 48 HOURS 02/09/20 13:15 Blood Blood Culture - Preliminary NO GROWTH AFTER 48 HOURS 02/10/20 06:10 Urine,Clean Catch Urine Culture - Preliminary NO GROWTH AFTER 24 HOURS - Constitutional no acute distress - *Routine HEENT Exam Head: Present: normocephalic Eye: Present: EOMI ENT: Present: mucous membranes moist - *Routine Neck Exam Present: supple. Absent: lymphadenopathy - *Routine Respiratory Exam Present: decreased breath sounds (in the bases). Absent: wheezes - *Routine Cardiovascular Exam Present: RRR - *Routine Abdominal Exam Present: soft, normoactive bowel sounds. Absent: tenderness - *Routine Extremities Exam Present: edema (1+ bilateral lower extremites). Absent: cyanosis, clubbing - *Routine Skin Exam Present: warm. Absent: rash - *Routine Neurological Exam Present: alert, oriented X3 Assessment and Plan (1) Acute respiratory failure with hypoxia and hypercapnia Current visit: Yes Status: Acute Category: Medical Code(s): J96.01 - Acute respiratory failure with hypoxia; J96.02 - Acute respiratory failure with hypercapnia (2) COPD exacerbation Current visit: Yes Status: Acute Category: Medical Code(s): J44.1 - Chronic obstructive pulmonary disease with (acute) exacerbation (3) Pneumonia Current visit: Yes Status: Acute Category: Medical Code(s): J18.9 - Pneumonia, unspecified organism (4) Hyperglycemia Current visit: Yes Status: Acute Category: Medical Code(s): R73.9 - Hyperglycemia, unspecified (5) Hypertension Current visit: Yes Status: Acute Category: Medical Code(s): I10 - Essential (primary) hypertension (6) History of CVA (cerebrovascular accident) Current visit: Yes Status: Acute Category: Medical Code(s): Z86.73 - Personal history of transient ischemic attack (TIA), and cerebral infarction without residual deficits (7) Morbid obesity Current visit: Yes Status: Acute Category: Medical Code(s): E66.01 - Morbid (severe) obesity due to excess calories
--- NOTE | 2020-02-12 11:56 | PC.NURSE ---
glucometer reading of 545. ordered stat lab. patient is not symptomatic. will alert md with reult of glucose.
--- NOTE | 2020-02-12 12:10 | PC.NURSE ---
lunch trays on floor and patient requesting to eat. called and reported the glucometer result to md medicare contact specialist. md stated to give patient 40 units of the humalog at this time
[2020-02-12 13:08] LABS: Glucose,Random 572 mg/dL (74-100)
--- NOTE | 2020-02-12 13:19 | PC.NURSE ---
md is aware of elevated glucose from call earlier. will continue to monitor patient fsbs
--- NOTE | 2020-02-12 18:25 | PC.NURSE ---
patient continues to maintain well on 3-4l of o2. blood still noted in urine. rings out as needed. higher fsbs this shift but after humalog has come down. has had no complaints. vitals stable. will continue to monitor.
[2020-02-12 18:41] LABS: POC Glucose,Bedside 370 (70-110)
[2020-02-12 18:41] LABS: POC Glucose,Bedside 545 (70-110)
[2020-02-12 20:55] LABS: POC Glucose,Bedside 330 (70-110)
[2020-02-13] VITALS (19 sets, daily range): BP systolic 95–190; BP diastolic 47–86; PULSE 45–80; RESP 16–20; TEMP 36.4–36.9; O2SAT 78–98; BMI 43.4
--- NOTE | 2020-02-13 05:26 | PC.NURSE ---
No acute changes since prior assessment. Pt A&O x4. Has rested well this shift with no complaints. Pt has remained on O2 NC this shift. She is currently on 91% on 2L . RA sat was 78%. Pt continues to become bracycardic while sleeping with HR declining in the upper 40s. F/C draining to bedside with bloody urine. Less clots observed. No other concerns at this time. Will continue to monitor.
[2020-02-13 06:06] LABS: POC Glucose,Bedside 324 (70-110)
[2020-02-13 06:15] LABS: Hematocrit 30.1 % (37.0-47.0); Hemoglobin 9.3 g/dL (12.2-16.2); Lymphocytes # 0.4 K/mm3 (0.7-4.5); Lymphocytes % 5.8 % (10-50); Mean Corpuscular Hemoglobin 31.9 pg (27.0-31.2); Mean Corpuscular Volume 102.8 fl (81-99); Mean Platelet Volume 7.8 fl (7.4-10.4); Monocytes # 0.2 K/mm3 (0.1-1.0); Monocytes % 3.9 % (1.7-9.3); Neutrophils # 5.4 K/mm3 (1.8-7.8); Neutrophils % 90.3 % (37.0-80.0); Platelet Count 224 K/mm3 (142-424); Red Blood Count 2.93 M/mm3 (4.20-5.40); Red Cell Distribution Width 14.7 % (11.5-17.5)
[2020-02-13 06:20] LABS: MANUAL DIFFERENTIAL MANUAL DIFFERENTIAL (MANUAL DIFF)
[2020-02-13 06:21] LABS: Chloride 89 mmol/L (98-107); Potassium 3.6 mmoL/L (3.5-5.1); Sodium 136 mmol/L (136-145)
[2020-02-13 06:24] LABS: Blood Urea Nitrogen 23 mg/dl (7-17); Creatinine Clearance Estimated 80 mL/min (50-200); Estimated Glomerular Filt Rate 125 ml/min (>60); GFR (African American) 151 ML/MIN (>60)
[2020-02-13 06:25] LABS: Calcium 8.2 mg/dl (8.4-10.2); Glucose 334 mg/dl (74-100)
[2020-02-13 06:39] LABS: Anion Gap 5.6 mEq/L (5-15); Carbon Dioxide 45 mmol/L (22.0-30.0)
[2020-02-13 08:25] LABS: Lymphocytes % 6 % (10-50); Macrocytosis 1+; Neutrophils % 94 % (42-76); Platelet Estimate Normal; Total Cells Counted 100
--- NOTE | 2020-02-13 08:35 | HMH.ACPN2 ---
<Kerline Rendon - Last Filed: 02/13/20 08:35> Internal Medicine - PN: Subj *Date: 02/13/20 *Time: 08:35 Interval history: Patient says she is doing better and would like to go home. She is eating well without problems. She has been up to the bedside commode and did sit in a chair for brief period of time yesterday. She felt she tolerated this well. She slept with nasal O2 throughout the night. She denies chest pain and shortness of breath. She has a periodic nonproductive cough. She continues with a Greco catheter and hematuria. Nurses states that she has been in sinus rhythm throughout the night. She occasionally drops down into the 40s. Hemoglobin/ hematocrit are stable at 9.3 and 30.1. O2 sats have been in the 90s with nasal O2 at 2 L/min. Exam Vital signs and Labs for Last 24 Hours: Temp Pulse Resp BP Pulse Ox 97.6 F 54 L 20 95/47 L 94 L 02/13/20 04:00 02/13/20 06:18 02/13/20 04:00 02/13/20 04:00 02/13/20 06:18 Laboratory Results - last 24 hr 02/12/20 11:55: POC Glucose 545 H* 02/12/20 12:53: Random Glucose 572 H* 02/12/20 16:24: POC Glucose 370 H* 02/12/20 20:08: POC Glucose 330 H* 02/13/20 05:50: WBC 6.0, RBC 2.93 L, Hgb 9.3 L, Hct 30.1 L, MCV 102.8 H, MCH 31.9 H, MCHC 31.0 L, RDW 14.7, Plt Count 224, MPV 7.8, Neut % (Auto) 90.3 H, Lymph % (Auto) 5.8 L, [place] % (Auto) 3.9, Eos % (Auto) 0.0 L, Baso % (Auto) 0.0 L, Neut # (Auto) 5.4, Lymph # (Auto) 0.4 L, [place] # (Auto) 0.2, Eos # (Auto) 0.0, Baso # (Auto) 0.0, Total Counted 100, Neutrophils % (Manual) 94 H, Lymphocytes % (Manual) 6 L, Platelet Estimate Normal, Macrocytosis 1+ 02/13/20 05:50: Sodium 136, Potassium 3.6, Chloride 89 L, Carbon Dioxide 45 H*, Anion Gap 5.6, BUN 23 H, Creatinine 0.50 L, Estimated Creat Clear 80, Estimated GFR 125, Est GFR ( Amer) 151, Glucose 334 H, Calcium 8.2 L 02/13/20 05:50: POC Glucose 324 H* I & O for Last 24 hours: Intake & Output 02/10/20 02/11/20 02/12/20 02/13/20 11:59 11:59 11:59 11:59 Intake Total 1167 / 1167 970 / 970 1743 / 1743 1464 / 1464 Output Total 1600 / 1600 2650 / 2650 1974 / 1974 3700 / 3700 Balance -433 / -433 -1680 / -1680 -232 / -232 -2236 / -2236 Weight 246 lb 8 oz 246 lb 14.684 oz 195 lb 1 oz 236 lb 5 oz Microbiology Reports for the Last 24 Hours: Microbiology 02/10/20 06:10 Urine,Clean Catch Urine Culture - Final NO GROWTH AFTER 48 HOURS - Constitutional no acute distress Comments: Appears comfortable sitting up in the bed eating her breakfast. - *Routine Respiratory Exam Comments: And expiratory wheeze throughout. - *Routine Cardiovascular Exam Present: RRR Comments: Monitor shows sinus rhythm in the 70s - *Routine Abdominal Exam Present: soft, normoactive bowel sounds. Absent: tenderness - *Routine Exam Comments: Greco catheter. Hematuria - *Routine Extremities Exam Absent: edema, calf tenderness - *Routine Neurological Exam Present: alert, oriented X3 Assessment and Plan (1) Acute respiratory failure with hypoxia and hypercapnia Current visit: Yes Status: Acute Category: Medical Code(s): J96.01 - Acute respiratory failure with hypoxia; J96.02 - Acute respiratory failure with hypercapnia (2) COPD exacerbation Current visit: Yes Status: Acute Category: Medical Code(s): J44.1 - Chronic obstructive pulmonary disease with (acute) exacerbation (3) Pneumonia Current visit: Yes Status: Acute Category: Medical Code(s): J18.9 - Pneumonia, unspecified organism (4) Hyperglycemia Current visit: Yes Status: Acute Category: Medical Code(s): R73.9 - Hyperglycemia, unspecified (5) Hypertension Current visit: Yes Status: Acute Category: Medical Code(s): I10 - Essential (primary) hypertension (6) History of CVA (cerebrovascular accident) Current visit: Yes Status: Acute Category: Medical Code(s): Z86.73 - Personal history of transient ischemic attack (TIA), and cerebra
--- NOTE | 2020-02-13 08:44 | XR_ITS ---
PROCEDURE: XR CHEST PORTABLE CLINICAL HISTORY: Pneumonia; hypoxia COMPARISON: CXR CHEST(2 VIEWS-NOT PORTABLE) from 05/27/[address] angio chest from 02/11/2019 XR CHEST PORTABLE from 10/21/2019 XR CHEST PORTABLE from 02/09/2020 FINDINGS: Cardiomegaly without failure. No change right-sided pleural effusion. The right basilar atelectasis has shown some improvement. The left lung is clear. No acute bony abnormalities. IMPRESSION: No change right-sided effusion with some improvement in the right basilar atelectasis/airspace disease Dictated by: Berhane Oden MD 02/13/2020 09:45 Electronically signed by Berhane Oden MD in [place] 02/13/2020 09:45
--- NOTE | 2020-02-13 08:51 | HMH.ACPN ---
Internal Medicine - PN: Subj *Date: 02/13/20 *Time: 08:51 Exam Vital signs and Labs for Last 24 Hours: Temp Pulse Resp BP Pulse Ox 97.6 F 54 L 20 95/47 L 94 L 02/13/20 04:00 02/13/20 06:18 02/13/20 04:00 02/13/20 04:00 02/13/20 06:18 Laboratory Results - last 24 hr 02/12/20 11:55: POC Glucose 545 H* 02/12/20 12:53: Random Glucose 572 H* 02/12/20 16:24: POC Glucose 370 H* 02/12/20 20:08: POC Glucose 330 H* 02/13/20 05:50: WBC 6.0, RBC 2.93 L, Hgb 9.3 L, Hct 30.1 L, MCV 102.8 H, MCH 31.9 H, MCHC 31.0 L, RDW 14.7, Plt Count 224, MPV 7.8, Neut % (Auto) 90.3 H, Lymph % (Auto) 5.8 L, [place] % (Auto) 3.9, Eos % (Auto) 0.0 L, Baso % (Auto) 0.0 L, Neut # (Auto) 5.4, Lymph # (Auto) 0.4 L, [place] # (Auto) 0.2, Eos # (Auto) 0.0, Baso # (Auto) 0.0, Total Counted 100, Neutrophils % (Manual) 94 H, Lymphocytes % (Manual) 6 L, Platelet Estimate Normal, Macrocytosis 1+ 02/13/20 05:50: Sodium 136, Potassium 3.6, Chloride 89 L, Carbon Dioxide 45 H*, Anion Gap 5.6, BUN 23 H, Creatinine 0.50 L, Estimated Creat Clear 80, Estimated GFR 125, Est GFR ( Amer) 151, Glucose 334 H, Calcium 8.2 L 02/13/20 05:50: POC Glucose 324 H* I & O for Last 24 hours: Intake & Output 02/10/20 02/11/20 02/12/20 02/13/20 23:59 23:59 23:59 23:59 Intake Total 1277 / 1277 1703 / 1703 1224 / 1224 600 / 600 Output Total 2850 / 2850 2175 / 2175 3600 / 3600 1300 / 1300 Balance -1573 / -1573 -472 / -472 -2376 / -2376 -700 / -700 Weight 112 kg 88.479 kg 107.19 kg Microbiology Reports for the Last 24 Hours: Microbiology 02/10/20 06:10 Urine,Clean Catch Urine Culture - Final NO GROWTH AFTER 48 HOURS Assessment and Plan (1) Acute respiratory failure with hypoxia and hypercapnia Current visit: Yes Status: Acute Category: Medical Code(s): J96.01 - Acute respiratory failure with hypoxia; J96.02 - Acute respiratory failure with hypercapnia (2) COPD exacerbation Current visit: Yes Status: Acute Category: Medical Code(s): J44.1 - Chronic obstructive pulmonary disease with (acute) exacerbation (3) Pneumonia Current visit: Yes Status: Acute Category: Medical Code(s): J18.9 - Pneumonia, unspecified organism (4) Hyperglycemia Current visit: Yes Status: Acute Category: Medical Code(s): R73.9 - Hyperglycemia, unspecified (5) Hypertension Current visit: Yes Status: Acute Category: Medical Code(s): I10 - Essential (primary) hypertension (6) History of CVA (cerebrovascular accident) Current visit: Yes Status: Acute Category: Medical Code(s): Z86.73 - Personal history of transient ischemic attack (TIA), and cerebral infarction without residual deficits (7) Morbid obesity Current visit: Yes Status: Acute Category: Medical Code(s): E66.01 - Morbid (severe) obesity due to excess calories (8) Urinary tract infection with hematuria Current visit: Yes Status: Acute Category: Medical Code(s): N39.0 - Urinary tract infection, site not specified; R31.9 - Hematuria, unspecified (9) Atrial fibrillation with rapid ventricular response Current visit: Yes Status: Acute Category: Medical Code(s): I48.91 - Unspecified atrial fibrillation The patient's infection will respond to the chosen ABx?: Yes Is the patient receiving the right drug, dose, and route?: Yes Could a more targeted ABx be ordered?: No (WBC WNL)
[2020-02-13 11:58] LABS: POC Glucose,Bedside 495 (70-110)
--- NOTE | 2020-02-13 12:37 | HMH.CONS ---
*Admission Date: 02/09/20 *Reason for consult:: Gross hematuria *History of present illness: Patient is a 64-year-old white female with a history of lung cancer admitted on February 08 for increasing shortness of breath. She was in respiratory distress at the time of her injury to the ER and she was admitted. She has been better regarding her breathing and blood patient's urine was clear on admission did become bright red bloody after Greco catheter was placed. It has by nurse report become darker over the weekend and then it is light red at the bedside in the Greco bag today. Patient gives a 2-year history of intermittent blood upon wiping and sometimes in the toilet bowl. She states that 2 years ago she saw her batch freezer who recommended a D&C at the time for vaginal bleeding but she elected to not proceed with that. Patient is on Eliquis due to previous history of CVA. The Eliquis has been held over the last couple of days. She has not had a CT scan this admission. Labs are significant for markedly elevated glucose levels. Hemoglobin 9.3 creatinine 0.5. Urine culture from February 09 was negative for bacteria. Her urinalysis on admission showed no evidence of blood. [facility] History Medical History: Reports:: Cancer (lung), Cerebrovascular Accident, Diabetes Mellitus Type 2, Hyperlipidemia, Hypertension, Lung Disease (O2 dependent COPD) Denies:: Diabetes Mellitus Type 1, Internal Pacemaker *Have you ever received a pneumonia vaccine?: Yes *Have you received a flu vaccine this season?: Yes Other Medical History: Reports: Other (DVT) Laterality Cases: Bilateral: Tonsillectomy Other Surgeries: Yes: Cholecystectomy, Tubal Ligation, Other (Right lower lobectomy). No: Pacemaker - *Social History Smoking Status: Former smoker # Packs/Day (cigarettes): 1 Smoking End Date: 04/04/2019 Alcohol Intake: never Last Used Substance: days (ago) *Occupational Status:: disabled Housing: house Household Members: spouse *Travel in the last 8 weeks: None Family Hx:: Unable to obtain Meds Home Medications Medication Instructions Recorded Confirmed Type Apixaban [Eliquis 5mg tab] 5 mg PO BID 02/09/20 02/09/20 History Aspirin [Aspirin 81mg EC Tab] 81 mg PO DAILY 02/09/20 02/09/20 History Atorvastatin Calcium [Atorvastatin 80 mg PO HS 02/09/20 02/09/20 History 80mg Tab] Ipratropium/Albuterol Sulfate 3 ml IH QIDP PRN 02/09/20 02/10/20 History [Duoneb 3mL neb] bisoproloL fumarate [Bisoprolol 5 mg PO DAILY 02/09/20 02/09/20 History Fumarate] diazePAM [diazePAM 5mg Tablet] 5 mg PO TIDP PRN 02/09/20 02/10/20 History Fluoxetine HCl 20 mg PO DAILY 02/10/20 02/10/20 History Omeprazole [Omeprazole 40mg 40 mg PO DAILY 02/10/20 02/10/20 History Capsule] Torsemide 10 mg PO DAILY 02/10/20 02/10/20 History Allergies Allergy/AdvReac Type Severity Reaction Status Date / Time diclofenac Allergy Unknown Verified 10/21/19 14:39 allergy reaction Exam Vital signs and Labs for Last 24 Hours: Temp Pulse Resp BP Pulse Ox 97.6 F 66 20 128/47 L 93 L 02/13/20 04:00 02/13/20 12:00 02/13/20 12:00 02/13/20 12:00 02/13/20 12:00 Laboratory Results - last 24 hr 02/12/20 11:55: POC Glucose 545 H* 02/12/20 12:53: Random Glucose 572 H* 02/12/20 16:24: POC Glucose 370 H* 02/12/20 20:08: POC Glucose 330 H* 02/13/20 05:50: WBC 6.0, RBC 2.93 L, Hgb 9.3 L, Hct 30.1 L, MCV 102.8 H, MCH 31.9 H, MCHC 31.0 L, RDW 14.7, Plt Count 224, MPV 7.8, Neut % (Auto) 90.3 H, Lymph % (Auto) 5.8 L, [place] % (Auto) 3.9, Eos % (Auto) 0.0 L, Baso % (Auto) 0.0 L, Neut # (Auto) 5.4, Lymph # (Auto) 0.4 L, [place] # (Auto) 0.2, Eos # (Auto) 0.0, Baso # (Auto) 0.0, Total Counted 100, Neutrophils % (Manual) 94 H, Lymphocytes % (Manual) 6 L, Platelet Estimate Normal, Macrocytosis 1+ 02/13/20 05:50: Sodium 136, Potassium 3.6, Chloride 89 L, Carbon Dioxide 45 H*, Anion Gap 5.6, BUN 23 H, Creatinine 0.50 L, Estimated Creat Clear 80, Estimated GFR 125, Est GFR (Af
--- NOTE | 2020-02-13 13:07 | US_ITS ---
PROCEDURE: US KIDNEY CLINICAL INDICATION: hematuria COMPARISON: No exams were available for comparison FINDINGS: Right kidney is 11 x 6 x 7 cm. No hydronephrosis, renal mass or other significant anomaly. The left kidney is 12 x 6 x 6 cm. No hydronephrosis apparent. There is a 4 cm cyst in the upper pole IMPRESSION: 4 cm left renal cyst otherwise negative bilateral renal ultrasound Dictated by: Berhane Oden MD 02/13/2020 15:08 Electronically signed by Berhane Oden MD in [place] 02/13/2020 15:08
--- NOTE | 2020-02-13 15:35 | DIET.NUTRFU ---
Intakes have improved with breathing, BG high- ~400 yesterday and today.
--- NOTE | 2020-02-13 16:58 | PC.NURSE ---
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 Lung sounds are diminished in bl bases, abd soft and nontender, active bowel sounds in all quads, pt has been up and showered today with full linen change, alert and oriented x4, perrla, no s/s of distress noted, vital signs have remained stable, nsr per telemetry, will continue to monitor.
[2020-02-13 17:01] LABS: POC Glucose,Bedside 371 (70-110)
--- NOTE | 2020-02-13 19:13 | PC.NURSE ---
report given to justin
[2020-02-13 20:23] LABS: POC Glucose,Bedside 414 (70-110)
[2020-02-14] VITALS (13 sets, daily range): BP systolic 117–143; BP diastolic 54–72; PULSE 49–75; RESP 16–20; TEMP 36.4–36.8; O2SAT 92–98; BMI 41.5
--- NOTE | 2020-02-14 06:18 | PC.NURSE ---
NO ACUTE CHANGES NOTED. PT HAS RESTED WELL THIS SHIFT. DENIES ANY DISCOMFORT AT THIS TIME. VSS.SHE IS CURRENTLY ON O2 2L NC. LUNGS REMAIN DIMINISHED T/O. SHE IS CURRENTLY NSR ON TELEMETRY. PERIODS ON SINUS YAZMIN NOTED AT TIMES. F/C DRAINING TO BEDSIDE WITH CLOUDY, BLOODY URINE NOTED. MEDICATIONS ADMINISTERED PER DEC. NS INFUSING @ 50 ML/HR. NEW IV PLACEMENT #20 IN RFA. CALL LIGHT WITHIN REACH, SAFETY MEASURES IN PLACE. WILL CONTINUE TO MONITOR.
[2020-02-14 07:03] LABS: POC Glucose,Bedside 334 (70-110)
--- NOTE | 2020-02-14 08:13 | HMH.ACPN2 ---
<Kerline Rendon - Last Filed: 02/14/20 08:13> Internal Medicine - PN: Subj *Date: 02/14/20 *Time: 08:13 Interval history: Patient states that she did not sleep. She is well and is enjoying the food. She denies chest pain. Her breathing is stable. She was up and out of bed yesterday and tolerated well. She states she did take a shower which made her feel better. She is continues with a Greco catheter and urine seems to be clearing. She was seen by Dr. Anne who discussed total hematuria work-up. She had a renal ultrasound yesterday. He will follow today. Exam Vital signs and Labs for Last 24 Hours: Temp Pulse Resp BP Pulse Ox 98.0 F 52 L 19 130/54 L 98 02/14/20 07:53 02/14/20 06:11 02/14/20 06:00 02/14/20 06:00 02/14/20 06:11 Laboratory Results - last 24 hr 02/13/20 05:50: Total Counted 100, Neutrophils % (Manual) 94 H, Lymphocytes % (Manual) 6 L, Platelet Estimate Normal, Macrocytosis 1+ 02/13/20 11:48: POC Glucose 495 H* 02/13/20 16:44: POC Glucose 371 H* 02/13/20 20:15: POC Glucose 414 H* 02/14/20 06:10: POC Glucose 334 H* I & O for Last 24 hours: Intake & Output 02/11/20 02/12/20 02/13/20 02/14/20 11:59 11:59 11:59 11:59 Intake Total 970 / 970 1743 / 1743 1464 / 1464 1270 / 1270 Output Total 2650 / 2650 1974 / 1974 3700 / 5700 4300 / 4300 Balance -1680 / -1680 -232 / -232 -2236 / -4236 -3030 / -3030 Weight 246 lb 14.684 oz 195 lb 1 oz 236 lb 5 oz 225 lb 6.551 oz Radiology Reports for the Last 24 Hours: 02/13/2020 renal ultrasound IMPRESSION: 4 cm left renal cyst otherwise negative bilateral renal ultrasound - Constitutional no acute distress Comments: Sitting up in the bed eating her breakfast. Appears comfortable and is breathing easily. Remains on nasal O2. - *Routine Respiratory Exam Comments: Diminished breath sounds posteriorly with soft expiratory wheeze throughout. - *Routine Cardiovascular Exam Present: RRR Comments: Monitor continues to show sinus rhythm. At rest heart rate is in the high 40s and 50s - *Routine Abdominal Exam Present: soft. Absent: normoactive bowel sounds, tenderness - *Routine Extremities Exam Absent: edema, calf tenderness - *Routine Neurological Exam Present: alert, oriented X3 Assessment and Plan (1) Acute respiratory failure with hypoxia and hypercapnia Current visit: Yes Status: Acute Category: Medical Code(s): J96.01 - Acute respiratory failure with hypoxia; J96.02 - Acute respiratory failure with hypercapnia (2) COPD exacerbation Current visit: Yes Status: Acute Category: Medical Code(s): J44.1 - Chronic obstructive pulmonary disease with (acute) exacerbation (3) Pneumonia Current visit: Yes Status: Acute Category: Medical Code(s): J18.9 - Pneumonia, unspecified organism (4) Hyperglycemia Current visit: Yes Status: Acute Category: Medical Code(s): R73.9 - Hyperglycemia, unspecified (5) Hypertension Current visit: Yes Status: Acute Category: Medical Code(s): I10 - Essential (primary) hypertension (6) History of CVA (cerebrovascular accident) Current visit: Yes Status: Acute Category: Medical Code(s): Z86.73 - Personal history of transient ischemic attack (TIA), and cerebral infarction without residual deficits (7) Morbid obesity Current visit: Yes Status: Acute Category: Medical Code(s): E66.01 - Morbid (severe) obesity due to excess calories (8) Urinary tract infection with hematuria Current visit: Yes Status: Acute Category: Medical Code(s): N39.0 - Urinary tract infection, site not specified; R31.9 - Hematuria, unspecified (9) Atrial fibrillation with rapid ventricular response Current visit: Yes Status: Acute Category: Medical Code(s): I48.91 - Unspecified atrial fibrillation (10) Hematuria Current visit: Yes Status: Acute Category: Medical Code(s): R31.9 - Hematuria, unspecified - Assessment and plan all Dx Assessm
--- NOTE | 2020-02-14 10:23 | HMH.CONFU ---
Internal Medicine - PN: Subj *Date: 02/14/20 *Time: 10:23 Interval history: Pt sleeping. Urine blood-tinged in good with small clot. Exam Vital signs and Labs for Last 24 Hours: Temp Pulse Resp BP Pulse Ox 98.0 F 51 L 17 138/62 97 02/14/20 07:53 02/14/20 09:57 02/14/20 09:12 02/14/20 08:00 02/14/20 09:57 Laboratory Results - last 24 hr 02/13/20 11:48: POC Glucose 495 H* 02/13/20 16:44: POC Glucose 371 H* 02/13/20 20:15: POC Glucose 414 H* 02/14/20 06:10: POC Glucose 334 H* I & O for Last 24 hours: Intake & Output 02/11/20 02/12/20 02/13/20 02/14/20 23:59 23:59 23:59 23:59 Intake Total 1703 / 1703 1224 / 1224 1137 / 1137 733 / 733 Output Total 2175 / 2175 3600 / 3600 4100 / 4100 1500 / 1500 Balance -472 / -472 -2376 / -2376 -2963 / -2963 -767 / -767 Weight 88.479 kg 107.19 kg 102.244 kg Narrative: Well-nourished white female in no apparent distress Head is normocephalic Normal respiratory effort Abdomen normal to visual inspection Assessment and Plan (1) Acute respiratory failure with hypoxia and hypercapnia Current visit: Yes Status: Acute Category: Medical Code(s): J96.01 - Acute respiratory failure with hypoxia; J96.02 - Acute respiratory failure with hypercapnia (2) COPD exacerbation Current visit: Yes Status: Acute Category: Medical Code(s): J44.1 - Chronic obstructive pulmonary disease with (acute) exacerbation (3) Pneumonia Current visit: Yes Status: Acute Category: Medical Code(s): J18.9 - Pneumonia, unspecified organism (4) Hyperglycemia Current visit: Yes Status: Acute Category: Medical Code(s): R73.9 - Hyperglycemia, unspecified (5) Hypertension Current visit: Yes Status: Acute Category: Medical Code(s): I10 - Essential (primary) hypertension (6) History of CVA (cerebrovascular accident) Current visit: Yes Status: Acute Category: Medical Code(s): Z86.73 - Personal history of transient ischemic attack (TIA), and cerebral infarction without residual deficits (7) Morbid obesity Current visit: Yes Status: Acute Category: Medical Code(s): E66.01 - Morbid (severe) obesity due to excess calories (8) Urinary tract infection with hematuria Current visit: Yes Status: Acute Category: Medical Code(s): N39.0 - Urinary tract infection, site not specified; R31.9 - Hematuria, unspecified (9) Atrial fibrillation with rapid ventricular response Current visit: Yes Status: Acute Category: Medical Code(s): I48.91 - Unspecified atrial fibrillation (10) Hematuria Current visit: Yes Status: Acute Category: Medical Code(s): R31.9 - Hematuria, unspecified Gross hematuria started with placement of the Good catheter placement during this admission. Urine is slightly blood-tinged and a small clot is noted in the tubing. A renal ultrasound showed only a small simple renal cyst there is no evidence of stones or masses obstruction. Patient appears to be doing better regarding her breathing and cystoscopy is recommended as an outpatient next Thursday. Hominis her urine remains slightly blood-tinged she may go home and her Good may be removed prior to discharge home and I will arrange a follow-up with cystoscopy under local anesthetic. It would be nice to keep her off the Brilinta for a few more days if possible but if not possible she may restart it.
--- NOTE | 2020-02-14 11:15 | PC.NURSE ---
Left message with Dr Acuna nurse that patients glucose is 454 and per sliding scale I am notifying him for further instruction/
[2020-02-14 11:35] LABS: POC Glucose,Bedside 454 (70-110)
--- NOTE | 2020-02-14 15:36 | HMH.PHAINT ---
DISCHARGE COUNSELING COMPLETED.
--- NOTE | 2020-02-16 13:19 | HMH.DCSUM ---
General - General Admission date:: 02/09/20 <NanyChet Kennedy - 03/01/20 18:18> 02/09/20 <Aundrea Plaza - 02/16/20 13:30> Discharge date: 02/14/20 <Aundrea Plaza - 02/16/20 13:30> HPI HPI: Ms. Jung is a 64-year-old white female with a history of oxygen dependent COPD; status post right lower lobectomy for lung cancer last year who was brought in from home by EMS in acute respiratory failure. History from the ER is that she had not been feeling well for 2 or 3 days and her called EMS. On arrival to the home her oxygen sat was 93%. She initially did not want to be transported, but her insisted she come to the hospital. In route she was placed on 6 L of nasal oxygen, administered a nebulizer treatment and IV Solu-Medrol. On arrival to the ER she began complaining of nausea and started dry heaving. She became cyanotic and her O2 sats dropped into the 50s. She was placed on a nonrebreather mask and sats improved. Blood gas was obtained and she was found to be in hypercapnic respiratory failure. Her initial pH was 7.27 with a PCO2 of 103. Labs showed a normal white count. She had a significant anion gap of 55. Chest x-ray showed right lower lobe consolidation/atelectasis with pleural effusion. She was placed on BiPAP and admitted to the stepdown unit. <Aundrea Plaza - 02/16/20 13:30> Hospital Course Hospital Course: The patient's history was difficult to obtain due to her BiPAP. She was breathing better and had no complaints of chest pain or nausea. Her oxygen sats were ranging from 85 to 93%. She was empirically started on IV Rocephin and Zithromax as well as steroids. Blood sugars were covered with sliding scale insulin. An echo was ordered to rule out pulmonary hypertension. The echo showed an EF of 55% with grade 1 diastolic dysfunction. Her blood gases improved on the BiPAP. She did develop gross hematuria in her Greco bag and a repeat urinalysis showed 2+ leukocyte esterase in addition to the blood. A urine culture was ordered and she was continued on antibiotics. She was able to be weaned off of the BiPAP onto nasal cannula. Her Eliquis was held, but her H&H decreased after the adams hematuria. The patient went into A. fib with rapid ventricular response and converted quickly back to normal sinus rhythm after dose of IV Cardizem. She he began having less blood in her Greco and was only using BiPAP for short periods at night while sleeping. Her urine and blood culture showed no growth. She was able to be weaned to nasal oxygen and denied any chest pain or shortness of breath. She remained in sinus rhythm and her hemoglobin and hematocrit remained stable. Her steroids were tapered and urology was consulted due to the hematuria. Dr. Anne saw the patient and she reported to him that she had some occasional blood upon wiping for up to 2 years. 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 Urinalysis on admission was clear and the blood began after the Greco catheter was inserted. Her urine did appear to be clearing. She had a renal ultrasound showing a 4 cm left renal cyst but the ultrasound was otherwise negative. She was able to get up and out of bed as well as take a shower. She was transitioned to p.o. steroids and her respiratory status was stable. She was seen again by Dr. Anne and he wanted to perform a cystoscopy on an outpatient basis once the patient was discharged. He felt she could go home and her Greco could be removed prior to discharge. He also wanted her to remain off of her Brilinta for a few more days. The patient was discharged home and will follow up with her primary care physician as well as Dr. Anne. She was discharged on Ceftin along with Cardizem. <Aundrea Plaza - 02/16/20 13:30> Objective Vital signs: Temp Pulse Resp BP Pulse Ox 98.3 F 55 L 18 131/72 95 02/14/20 15:55 02/14/20 15:55 02/14/20 15:55 02/14/20 15:55 02/14/20
== END 2020-02-14 16:18 | disposition home or self-care (01) | DRG 189 ==
LOC: ER 15:52 → 2ND 15:59
PROVIDERS: Family Medicine; Admitting Provider Family Medicine; Emergency Provider Emergency Medicine; Visit Provider Family Medicine
DX: J96.01 Acute respiratory failure with hypoxia (principal); J18.9 Pneumonia, unspecified organism; J44.0 Chronic obstructive pulmonary disease with (acute) lower respiratory infection; J44.1 Chronic obstructive pulmonary disease with (acute) exacerbation; N39.0 Urinary tract infection, site not specified; Z68.41 Body mass index [BMI] 40.0-44.9, adult; J96.02 Acute respiratory failure with hypercapnia; Z87.891 Personal history of nicotine dependence; Z85.118 Personal history of other malignant neoplasm of bronchus and lung; Z90.2 Acquired absence of lung [part of]; I10 Essential (primary) hypertension; Z99.81 Dependence on supplemental oxygen; I48.91 Unspecified atrial fibrillation; R31.9 Hematuria, unspecified; E66.01 Morbid (severe) obesity due to excess calories; Z79.01 Long term (current) use of anticoagulants; Z79.51 Long term (current) use of inhaled steroids; R73.9 Hyperglycemia, unspecified; Z79.899 Other long term (current) drug therapy
CPT/HCPCS: 94660; 36415; 71045; 76770; 80048; 80053; 81001; 82803; 82947; 82962; 83036; 83605; 83880; 84484; 85007; 85014; 85018; 85025; 87040; 87086; 93005; 93306; 94640; 94761; 96365; 96367; 99285; J0456

== ENCOUNTER → 2020-02-18 13:11 | Outpatient (CLI) | payer OTHER, MEDICAID, SELFPAY ==
[2020-02-19 08:31] LABS: Covid-19 Nasal PCR Sendout UK NOT DETECTED
== END ==
PROVIDERS: Visit Provider Urology
DX: Z03.818 Encounter for observation for suspected exposure to other biological agents ruled out (principal)
CPT/HCPCS: U0003

== ENCOUNTER 2020-02-20 08:27 | Day surgery (SDC) | payer OTHER, MEDICAID, SELFPAY ==
[2020-02-20 09:33] VITALS: BP 152/83; PULSE 52; RESP 18; TEMP 36.2; O2SAT 98; BMI 44.9
[2020-02-20 09:55] LABS: POC Glucose,Bedside 354 (70-110)
[2020-02-20 10:11] VITALS: BP 127/67; PULSE 64; RESP 18; TEMP 36.8; O2SAT 98
[2020-02-20 10:34] VITALS: BP 127/67; PULSE 64; RESP 18; O2SAT 98
--- NOTE | 2020-02-20 10:35 | PC.NURSE ---
Pt left without folder with copies of discharge instructions. RN reviewed discharge instructions with pt and prior to discharge and they verbalized understanding.
--- NOTE | 2020-02-20 11:40 | P.OP_ITS ---
Date of procedure: 02/20/20 Pre-op Diagnosis:: Gross hematuria Post-op Diagnosis:: Bladder tumor Procedure performed:: Flexible cystourethroscopy Surgeon:: Andrew Anne MD Anesthesia: local Estimated blood loss (mL): 0 Clinical Note:: 64-year-old white female seen as a hospital consultation last week for gross hematuria. Hematuria was noted after Greco catheter was placed. She states she has had some previous blood on the tissue after wiping but denies any blood in the toilet bowl. She does have a history of some uterine bleeding. Operative findings:: Small bladder tumor in the posterior bladder. Operative note:: Patient taken to the treatment room after informed consent. On the stretcher she was placed into the frog-leg position. She was prepped and draped in the standard surgical fashion and 2% lidocaine placed into the urethra. After few minutes the vaginal orifice was examined there was some blood at the urethral meatus and it was difficult to tell if it was vaginal or from the urethra. We flexible cystoscope introduced into the urethral meatus passed into the bladder without difficulty. The bladder was examined in a systematic fashion. There was a small shallow bladder tumor in the leftward aspect of the posterior bladder. About 1 cm in size. There was no active bleeding at the site p resently. No other abnormalities were noted. Ureteral orifices in their normal anatomic position with clear reflux of urine. Bladder neck and urethra were normal. Scope then placed into the vaginal orifice and there is no evidence of any bleeding or clot in the proximal vagina. Scope removed patient tolerated procedure well no complications. We discussed the findings and we will get her set up for a TURBT under general anesthetic at her earliest convenience. Condition: stable Disposition: same day Specimens:: None Complications:: None
== END 2020-02-20 10:37 | disposition home or self-care (01) ==
LOC: OUTP 08:35
PROVIDERS: PCP Family Medicine; Visit Provider Urology
PROC: (CPT 52000; principal; 2020-02-20 09:30)
DX: D49.4 Neoplasm of unspecified behavior of bladder (principal); R31.0 Gross hematuria; Z79.01 Long term (current) use of anticoagulants; Z79.899 Other long term (current) drug therapy
CPT/HCPCS: 52000; 82962

== ENCOUNTER → 2020-03-02 08:34 | Outpatient (CLI) | payer MEDICAID, SELFPAY ==
[2020-03-02 11:03] LABS: Coronavirus 19 IgG Antibody Negative (Negative); Coronavirus 19 IgM Antibody Negative (Negative)
== END ==
PROVIDERS: Visit Provider Urology
DX: Z01.818 Encounter for other preprocedural examination (principal); R31.9 Hematuria, unspecified
CPT/HCPCS: 36415; 86328

== ENCOUNTER 2020-03-05 08:52 | Day surgery (SDC) | payer MEDICAID, SELFPAY ==
[2020-03-02 10:16] VITALS: BMI 44.9
[2020-03-05] VITALS (12 sets, daily range): BP systolic 104–138; BP diastolic 54–63; PULSE 61–71; RESP 16–20; TEMP 36.1–43; O2SAT 93–99
[2020-03-05 10:19] LABS: POC Glucose,Bedside 382 (70-110)
--- NOTE | 2020-03-05 10:53 | SUR.PREOP ---
repeat of ROSM=716. reported to Luis Manuel ELECTRONIC DESIGN ENGINEER
[2020-03-05 10:59] LABS: POC Glucose,Bedside 337 (70-110)
--- NOTE | 2020-03-05 11:30 | SUR.PREOP ---
repeat MEJC=[id number]. rpeort to Madelaine COIL FINISHER
[2020-03-05 11:35] LABS: POC Glucose,Bedside 283 (70-110)
[2020-03-05 12:13] LABS: POC Glucose,Bedside 243 (70-110)
--- NOTE | 2020-03-05 12:33 | HMH.ANESCL ---
[facility] Anesthesia Checklist - Patient Identification Patient Identification: Arm Band - Structural Data Admitted From: Home Planned Operative Procedure/s: TURBT Consent for Planned Operative Procedure(s) Verified: Yes Verified Documents: Surgical Consent, History and Physical - NPO Status Verified Time NPO: 00:00 - Additional verifications Anesthesia Reactions: No Hx Blood Transfusions: No Blood Transfusion Reaction: No - Airway Assessment C-Spine Mobility Assessed: Yes (mp2) TMJ Mobility Assessed: Yes Dentition: Poor Dentition - Neurological Assessment Level of Consciousness: Awake, Alert - Anesthesia Plan Anesthesia Risk discussed: Yes Anesthesia Plan: Verified ASA Class: III Anesthesia Type: General [facility] History I have reviewed the patient's past medical history: Yes Medical History: Reports:: Arrhythmia (afib), Cancer (rt lung), Cerebrovascular Accident, Diabetes Mellitus Type 2, Hyperlipidemia, Hypertension, Lung Disease (O2 dependent COPD) Denies:: Diabetes Mellitus Type 1, Internal Pacemaker, MRSA, Seizures *Have you ever received a pneumonia vaccine?: No *Have you received a flu vaccine this season?: Yes Other Medical History: Reports: Other (DVT). Denies: Blood Transfusion Reaction Anesthesia experience/problems:: nac Laterality Cases: Bilateral: Tonsillectomy Other Surgeries: Yes: Cholecystectomy, Tubal Ligation, Other (Right lower lobectomy). No: Pacemaker Amputation: No Fractures: No - *Social History Educational Level: Attended College Smoking Status: Never smoker # Packs/Day (cigarettes): 1 Alcohol Intake: never Substance Use Type: denies use *Occupational Status:: disabled Housing: house Household Members: spouse *Travel in the last 8 weeks: None Family Hx:: Cancer, Coronary Artery Disease, Stroke
[2020-03-05 12:50] LABS: POC Glucose,Bedside 207 (70-110)
--- NOTE | 2020-03-05 12:53 | HMH.ANESI ---
[facility] Anesthesia Record Part I Intake, IV Amount: 1,000 Estimated blood loss (mL): 0 Urine output (mL): 0 Blood Pressure: 127/60 SaO2: 93 Pulse Rate: 68 Respiratory Rate: 16 Temperature: 98 F Patient is:: Drowsy Stable to PACU at:: 12:40
--- NOTE | 2020-03-05 13:11 | PC.NURSE ---
1248-checked fsbs with results of 207-notified AARON Burkett
--- NOTE | 2020-03-05 14:20 | PC.NURSE ---
1314-detailed report called to ÁNGELA Thornton 1316-pt transported to post op via stretcher w/michael rails up and left in care of ÁNGELA Thornton with bed locked in lowest position, vss, pt stable
--- NOTE | 2020-03-05 15:34 | HMH.OPNOTE ---
Date of procedure: 03/05/20 Pre-op Diagnosis:: Bladder tumor Post-op Diagnosis:: Same Procedure performed:: TURBT less than 1 cm Surgeon:: Andrew Anne MD FAMILY SERVICES ASSISTANT:: Jorge Luis Luna Anesthesia: GETBoubacar Estimated blood loss (mL): 0 Clinical Note:: 64-year-old white female with recent cystoscopic finding of a small bladder tumor near the left ureteral orifice. She presents today for resection. Operative findings:: Small papillary findings noted medial to the left ureteral orifice. Operative note:: Patient taken to the operating room after informed consent was obtained. Preoperatively her blood sugar was in the 300s and she was given meds to decrease the blood sugar. She was taken to the operating room and placed on the operating table in the supine position. General anesthesia was administered, preoperative antibiotics and sequential compression devices placed. She was then placed into the dorsal lithotomy position and prepped and draped in the standard surgical fashion. A 22 Edmond passed into the urethra and into the bladder without difficulty. The bladder again surveyed in a systematic fashion. The only notable finding was that of the previously noted papillary lesion at the left trigone. The cystoscope removed and our 26 [place] resectoscope sheath with obturator passed into the urethra. The obturator removed and our resectoscope with a 24 cutting loop was placed through the sheath. The tumor was resected in its entirety and the base of the tumor was fulgurated lightly due to its proximity to the left ureteral orifice. Specimen was passed off and there was urine output from the left ureteral orifice after the procedure. Scope removed and a 16 [place] Greco catheter passed without difficulty. Patient tolerated procedure well there are no complications he was discharged to recovery in stable condition. Condition: stable Disposition: PACU Specimens:: Bladder tumor Complications:: None
--- NOTE | 2020-03-05 17:57 | HMH.ANESII ---
[facility] Anesthesia Record Part II Discharge Time: 14:15 Destination: Surgical Day Care (OP Surgery) PACU nurse assessment reviewed?: No Patient Condition:: Good Anesthesia Complications:: None Swallowing reflex intact?: Yes Cyanosis?: No Blood Pressure: 119/60 Pulse Rate: 65 Temperature: 97.4 F Mental Status: Alert & Oriented Pain level:: 0 Nausea and/or vomitting:: None Intake, IV Amount: 0
== END 2020-03-05 14:09 | disposition home or self-care (01) ==
LOC: OR 08:53
PROVIDERS: PCP Family Medicine; Visit Provider Urology
PROC: 0TBB8ZZ Excision of Bladder, Via Natural or Artificial Opening Endoscopic (ICD-10-PCS; CPT 52234; principal; 2020-03-05 10:30)
DX: D30.3 Benign neoplasm of bladder; Z90.49 Acquired absence of other specified parts of digestive tract; E11.9 Type 2 diabetes mellitus without complications; I10 Essential (primary) hypertension; J44.9 Chronic obstructive pulmonary disease, unspecified; Z87.891 Personal history of nicotine dependence; Z79.82 Long term (current) use of aspirin; Z79.899 Other long term (current) drug therapy; E78.5 Hyperlipidemia, unspecified; I49.9 Cardiac arrhythmia, unspecified
CPT/HCPCS: 52234; 82962; 96374; J2405

== ENCOUNTER → 2020-04-12 13:51 | Outpatient (CLI) | payer MEDICAID, SELFPAY ==
--- NOTE | 2020-04-12 13:53 | CT_ITS ---
PROCEDURE: CT CHEST W CON CLINCAL INDICATION: follow up lung cancer Follow-up lung cancer COMPARISON: [facility] CT angio chest from 02/11/2019 TECHNIQUE: IV Contrast: 75ml Optiray 350 Axial images obtained with sagittal and coronal reformats. All CT scans at the facility use one or more dose reduction, viz: automated exposure control, ma/kV adjustment per patient size (including targeted exams where dose is matched to indication, i.e. head), or iterative reconstruction technique. FINDINGS: HEART AND MEDIASTINAL STRUCTURES: There is a left lobe of the thyroid gland is enlarged with heterogeneous density. No mediastinal or hilar mass is evident. There is a 1 cm lymph node in the right pericardial region LUNGS AND PLEURAL SPACES: Centrilobular emphysema with COPD there are postsurgical changes with surgical clips in the right infrahilar region from prior right lower lobectomy. There is pleural thickening in the right lower lung zone posteriorly. Lobular soft tissue mass in the right lower lobe is no longer apparent BONY STRUCTURES: No acute bony abnormalities apparent. UPPER ABDOMEN: Fatty liver. Splenomegaly at 15 cm. Postsurgical changes of the stomach. This 3 cm right adrenal nodule measuring -9 Hounsfield units consistent with an adenoma. Left renal cyst. Surgical clips are present in the gallbladder fossa. ADDITIONAL FINDINGS: No other significant abnormalities. IMPRESSION: Status post right lower lobectomy with postsurgical changes. No convincing evidence of tumor recurrence. Other nonacute findings as described above. Dictated by: Berhane Oden MD 04/13/2020 10:53 Electronically signed by Berhane Oden MD in [place] 04/13/2020 10:53
[2020-04-12 14:38] LABS: Potassium 3.3 mmoL/L (3.5-5.1); Sodium 131 mmol/L (136-145)
[2020-04-12 14:40] LABS: Chloride 78 mmol/L (98-107)
[2020-04-12 14:41] LABS: Blood Urea Nitrogen 12 mg/dl (7-17); Estimated Glomerular Filt Rate 101 ml/min (>60); GFR (African American) 122 ML/MIN (>60)
[2020-04-12 14:42] LABS: Calcium 8.7 mg/dl (8.4-10.2)
[2020-04-12 14:50] LABS: Anion Gap 13.3 mEq/L (5-15)
[2020-04-12 14:51] LABS: Carbon Dioxide 43 mmol/L (22.0-30.0); Glucose 515 mg/dl (74-100)
== END ==
PROVIDERS: PCP Family Medicine; Visit Provider Family Medicine
DX: R07.9 Chest pain, unspecified (principal)
CPT/HCPCS: 36415; 71260; 80048; Q9967

== ENCOUNTER 2020-04-12 17:39 | Emergency (ER) | payer MEDICAID, SELFPAY ==
--- NOTE | 2020-04-12 17:56 | PC.NURSE ---
FSBS 427
[2020-04-12 17:57] VITALS: BP 112/87; PULSE 84; RESP 18; TEMP 36.8; O2SAT 75; BMI 44.9
--- NOTE | 2020-04-12 18:04 | XR_ITS ---
PROCEDURE: XR CHEST PORTABLE CLINICAL HISTORY: sob Severe shortness of COMPARISON: XR CHEST PORTABLE from 10/21/2019 XR CHEST PORTABLE from 02/09/2020 XR CHEST PORTABLE from 02/13/2020 CT CHEST W CON from 04/12/2020 FINDINGS: The cardiomediastinal silhouette and pulmonary vascularity are within normal limits. There is a small right pleural effusion. The remaining lungs are clear. No acute bony abnormalities. IMPRESSION: Small right pleural effusion Dictated by: Berhane Oden MD 04/13/2020 08:20 Electronically signed by Berhane Oden MD in [place] 04/13/2020 08:20
[2020-04-12 18:12] LABS: Basophils % 0.4 % (0.1-2.0); Eosinophils # 0.2 K/mm3 (0.0-0.4); Eosinophils % 2.4 % (0.1-12.0); Hematocrit 36.2 % (37.0-47.0); Hemoglobin 11.9 g/dL (12.2-16.2); Lymphocytes # 1.8 K/mm3 (0.7-4.5); Lymphocytes % 18.5 % (10-50); Mean Corpuscular HGB Conc 32.9 g/dL (31.8-35.4); Mean Corpuscular Hemoglobin 32.1 pg (27.0-31.2); Mean Corpuscular Volume 97.6 fl (81-99); Mean Platelet Volume 7.6 fl (7.4-10.4); Monocytes # 0.4 K/mm3 (0.1-1.0); Monocytes % 3.9 % (1.7-9.3); Neutrophils # 7.1 K/mm3 (1.8-7.8); Neutrophils % 74.9 % (37.0-80.0); Platelet Count 244 K/mm3 (142-424); Red Blood Count 3.71 M/mm3 (4.20-5.40); Red Cell Distribution Width 14.6 % (11.5-17.5); White Blood Count 9.5 K/mm3 (4.8-10.8)
[2020-04-12 18:19] LABS: Blood Urea Nitrogen 12 mg/dl (7-17); Calcium 8.9 mg/dl (8.4-10.2); Creatinine Clearance Estimated 41 mL/min (50-200); Estimated Glomerular Filt Rate 125 ml/min (>60); GFR (African American) 151 ML/MIN (>60); Potassium 3.2 mmoL/L (3.5-5.1); Sodium 127 mmol/L (136-145)
[2020-04-12 18:20] LABS: Chloride 75 mmol/L (98-107)
[2020-04-12 18:22] LABS: Acetone, Serum (Rapid) None Detected (None Detect)
[2020-04-12 18:23] LABS: Glucose 401 mg/dl (74-100)
--- NOTE | 2020-04-12 18:24 | PC.NURSE ---
notified of critical glucose of 401
[2020-04-12 18:27] LABS: Anion Gap 12.2 mEq/L (5-15); Carbon Dioxide 43 mmol/L (22.0-30.0)
--- NOTE | 2020-04-12 18:47 | HMH.EDRECH ---
ED Disposition Clinical Impression: Hyperglycemia due to diabetes mellitus, COPD (chronic obstructive pulmonary disease) Disposition: Home, Self-Care Condition on Discharge: Good Referrals: Orlando Zhang MD [Primary Care Provider] - Time of Disposition: 20:01 - Critical Care Critical Care Time: No Attestation: On 04/12/20, the high probability of a clinically significant, sudden or life threatening deterioration of the following system(s) required my full and direct attention, intervention and personal management. The time I documented below is in addition to time spent performing reported procedures but includes the following listed in this critical care notation. Medical Decision Making - Medical Records Medical records reviewed: Yes: I reviewed the patient's medical records. - Tj Inquiry Pt receiving controlled substance: No Vital Signs: 04/12/20 17:57 04/12/20 19:01 Temperature 98.2 F Temperature Source Oral Pulse Rate [Right Brachial] 84 72 Respiratory Rate 18 18 Blood Pressure [Right Arm] 112/87 132/70 Blood Pressure Mean [Right Arm] 95 90 Blood Pressure Source [Right Arm] Automatic Cuff Automatic Cuff Blood Pressure Position [Right Arm] Sitting Supine 02 Sat by Pulse Oximetry 75 L 96 Oxygen Delivery Method Room Air Room Air - Lab Data Lab Results 04/12/20 18:04: Specimen Source Left radial, O2 % 2 lpm nc, ABG pH 7.47 H, ABG pCO2 60.1 H, ABG pO2 76.6 L, ABG HCO3 42.4 H, ABG Total CO2 44.2 H, ABG O2 Saturation 95, ABG Base Excess 18.6 H, Berhane Test Acceptable 04/12/20 18:05: WBC 9.5, RBC 3.71 L, Hgb 11.9 L, Hct 36.2 L, MCV 97.6, MCH 32.1 H, MCHC 32.9, RDW 14.6, Plt Count 244, MPV 7.6, Neut % (Auto) 74.9, Lymph % (Auto) 18.5, [place] % (Auto) 3.9, Eos % (Auto) 2.4, Baso % (Auto) 0.4, Neut # (Auto) 7.1, Lymph # (Auto) 1.8, [place] # (Auto) 0.4, Eos # (Auto) 0.2, Baso # (Auto) 0.0 04/12/20 18:05: Sodium 127 L, Potassium 3.2 L, Chloride 75 L, Carbon Dioxide 43 H*, Anion Gap 12.2, BUN 12, Creatinine 0.50 L, Estimated Creat Clear 41, Estimated GFR 125, Est GFR ( Amer) 151 D, Glucose 401 H* D, Calcium 8.9, Acetone Level None detected Result diagrams: 04/12/20 18:05 04/12/20 18:05 Orders (Tests/Meds): ED MEDICATIONS Generic Name Dose Route Start Last Admin Trade Name Freq PRN Reason Stop Dose Admin Sodium Chloride 1,000 mls @ 999 mls/hr 04/12/20 18:15 04/12/20 18:45 Sod Chlor 0.9% 1000ml Bag IV 04/12/20 19:15 999 mls/hr .Q1H1M DANN Administration Discontinued Medications Generic Name Dose Route Start Last Admin Trade Name Freq PRN Reason Stop Dose Admin Insulin Human Lispro 6 unit 04/12/20 18:50 04/12/20 19:19 Humalog 100 Units/Ml 3ml Vial (Ssi) SQ 04/12/20 18:51 6 unit ONCE ONE Administration ORDERS Category Date Time Status Chest XR -- portable [XR chest portable] Stat Exams 04/12/20 18:04 Taken - Reevaluation(s) Time: 20:00 Reevaluation #1: On reevaluation, patient remains asymptomatic. Her blood glucose has improved. I did awake overnight counselor the patient regarding her diet and current elevated blood sugar. There is no evidence of elevated anion gap or acetone in the blood. Patient is breathing comfortably on her normal home supplemental oxygen. Patient given strict return precautions. Verbalized understanding. Medical Decision Narrative: This is a 64-year-old female presented to the emergency department for abnormal laboratory studies. Patient was found to be hyperglycemic as well as elevated CO2. This consistent with the patient's chronic disease. Basic work-up will be initiated at this time. Recheck HPI - General Chief Complaint: Recheck/Abnormal Lab/Rx Stated Complaint: Elev for High Sugar Time Seen by Provider: 04/12/20 18:10 Mode of Arrival: Wheelchair Source of Information: Patient Limitations: No Limitations Description of Symptoms (Recalled from ER Triage Doc. by RN): PT seent from MD office for abnormal labs and high sugar. PT c/o
[2020-04-12 19:01] VITALS: BP 132/70; PULSE 72; RESP 18; O2SAT 96
[2020-04-12 19:04] LABS: ABG Base Excess 18.6 mmol/L (-2.4-2.3); ABG HCO3 42.4 mmhg (22.0-26.0); ABG Oxygen Saturation 95 % (90-100); ABG PH 7.47 mmol/L (7.35-7.45); ABG PO2 76.6 mmhg (80-100); ABG TCO2 44.2 mmhg (23-27)
[2020-04-12 19:07] LABS: Allen's Test Acceptable; Oxygen 2 LPM NC %; Source Left Radial
[2020-04-12 19:08] LABS: ABG PCO2 60.1 mmhg (35.0-45.0)
[2020-04-12 20:18] VITALS: BP 129/68; PULSE 65; RESP 18; O2SAT 96
[2020-04-12 20:21] VITALS: BP 129/68; PULSE 65; RESP 18; TEMP 36.7; O2SAT 96
[2020-04-12 23:37] LABS: POC Glucose,Bedside 427 (70-110)
[2020-04-12 23:37] LABS: POC Glucose,Bedside 327 (70-110)
== END 2020-04-12 20:22 | disposition home or self-care (01) ==
PROVIDERS: Emergency Provider Emergency Medicine; PCP Family Medicine
DX: E11.65 Type 2 diabetes mellitus with hyperglycemia (principal); J44.9 Chronic obstructive pulmonary disease, unspecified; E78.5 Hyperlipidemia, unspecified; I10 Essential (primary) hypertension; Z86.73 Personal history of transient ischemic attack (TIA), and cerebral infarction without residual deficits; Z79.899 Other long term (current) drug therapy; Z88.8 Allergy status to other drugs, medicaments and biological substances; Z87.442 Personal history of urinary calculi
CPT/HCPCS: 71045; 80048; 82009; 82803; 82962; 85025; 96365; 96372; 99283

== ENCOUNTER 2020-05-01 12:49 | Emergency (ER) | payer MEDICAID, SELFPAY ==
[2020-05-01 12:50] VITALS: BP 100/65; PULSE 89; RESP 17; TEMP 37.5; O2SAT 92; BMI 44.9
--- NOTE | 2020-05-01 12:56 | HMH.EDGENADL ---
ED Disposition Clinical Impression: Weakness, Dehydration Disposition: Home, Self-Care Condition on Discharge: Fair Instructions: DI for Muscle Weakness Referrals: Orlando Zhang MD [Primary Care Provider] - 3 days - Critical Care Critical Care Time: No Attestation: On , the high probability of a clinically significant, sudden or life threatening deterioration of the following system(s) required my full and direct attention, intervention and personal management. The time I documented below is in addition to time spent performing reported procedures but includes the following listed in this critical care notation. Medical Decision Making - Medical Records Medical records reviewed: Yes: I reviewed the patient's medical records. - Tj Inquiry Pt receiving controlled substance: No Vital Signs: 05/01/20 12:50 05/01/20 14:28 Temperature 99.5 F Temperature Source Rectal Pulse Rate [Right] 89 80 Respiratory Rate 17 Blood Pressure [Right Arm] 100/65 L 133/58 L Blood Pressure Mean [Right Arm] 76 83 Blood Pressure Source [Right Arm] Automatic Cuff Blood Pressure Position [Right Arm] Sitting 02 Sat by Pulse Oximetry 92 L 95 Oxygen Delivery Method Nasal Cannula Nasal Cannula Oxygen Flow Rate (LPM) 2 3 - Lab Data Lab results reviewed: Yes: I reviewed the patient's lab results. Lab Results 05/01/20 12:53: Urine Color Yellow, Urine Appearance Clear, Urine pH 6.5, Ur Specific [place] 1.020, Urine Protein Negative, Urine Glucose (UA) Trace, Urine Ketones Negative, Urine Blood Negative, Urine Nitrate Negative, Urine Bilirubin Negative, Urine Urobilinogen 0.2, Ur Leukocyte Esterase Negative, Urine RBC 3-5, Urine WBC 3-5, Ur Squamous Epith Cells 3-5 05/01/20 12:53: WBC 5.4, RBC 3.22 L, Hgb 10.4 L, Hct 31.7 L, MCV 98.4, MCH 32.1 H, MCHC 32.7, RDW 15.4, Plt Count 166, MPV 9.5, Neut % (Auto) 78.4, Lymph % (Auto) 14.9, [place] % (Auto) 4.6, Eos % (Auto) 1.8, Baso % (Auto) 0.3, Neut # (Auto) 4.2, Lymph # (Auto) 0.8, [place] # (Auto) 0.3, Eos # (Auto) 0.1, Baso # (Auto) 0.0 05/01/20 12:53: Sodium 138, Potassium 3.5, Chloride 79 L, Carbon Dioxide 50 H*, Anion Gap 12.5, BUN 13, Creatinine 0.50 L, Estimated Creat Clear 41, Estimated GFR 125, Est GFR ( Amer) 151, Glucose 273 H, Calcium 8.4, Total Bilirubin 0.8, AST 26, ALT 20, Alkaline Phosphatase 118, Total Protein 6.3, Albumin 3.7, Globulin 2.6, Albumin/Globulin Ratio 1.4 Result diagrams: 05/01/20 12:53 05/01/20 12:53 Orders (Tests/Meds): ED MEDICATIONS Generic Name Dose Route Start Last Admin Trade Name Freq PRN Reason Stop Dose Admin Sodium Chloride 1,000 mls @ 999 mls/hr 05/01/20 14:00 05/01/20 14:26 Sod Chlor 0.9% 1000ml Bag IV 05/01/20 15:00 999 mls/hr .Q1H1M DANN Administration ORDERS Category Date Time Status Urine Culture Stat Micro 05/01/20 12:53 Received - CT Data CT Scan: L-Spine Time Received: 14:[address] Reviewed: Yes: I have reviewed the patient's CT results Findings Narrative: IMPRESSION: 1. No acute lumbar vertebral fracture or subluxation is identified. 2. Multilevel moderately advanced degenerative lumbosacral spondylitis changes seen with moderate to severe bilateral neural foraminal and central canal stenosis, as described. 3. A 3.1 centimeter possible right adrenal myelolipoma. Medical Decision Narrative: Patient with no leukocytosis here, slightly elevated temperature, but technically afebrile. Urinalysis negative for infection. No indications pointing towards sepsis at this time. She has low chloride and high CO2, but this is typical for her compared to previous labs and is not different than normal. Creatinine within normal limits. CT lumbar spine shows some degenerative disease, but nothing acute including no masses, signs of osteomyelitis. Patient continues to deny any pain. She does have a slightly lower in blood pressure and chronic hyperglycemia, so dehydration may be contributing to her symptoms as wel
[2020-05-01 13:11] LABS: Microscopic, Urine URINE MICROSCOPIC (MICROSCOPIC)
[2020-05-01 13:13] LABS: Appearance,Urine CLEAR (Clear); Bilirubin,Urine Negative (Negative); Blood, Urine Negative (Negative); Color,Urine YELLOW (Yellow); Glucose,Urine (UA) TRACE (Negative); Ketones,Urine Negative (Negative); Leukocyte Esterase,Urine Negative (Negative); Nitrate,Urine Negative (Negative); PH,Urine 6.5 (5.0-8.5); Protein,Urine Negative (Negative); Urobilinogen,Urine 0.2 EU/dl (0.2)
[2020-05-01 13:17] LABS: Basophils % 0.3 % (0.1-2.0); Eosinophils # 0.1 K/mm3 (0.0-0.4); Eosinophils % 1.8 % (0.1-12.0); Hematocrit 31.7 % (37.0-47.0); Hemoglobin 10.4 g/dL (12.2-16.2); Lymphocytes # 0.8 K/mm3 (0.7-4.5); Lymphocytes % 14.9 % (10-50); Mean Corpuscular HGB Conc 32.7 g/dL (31.8-35.4); Mean Corpuscular Hemoglobin 32.1 pg (27.0-31.2); Mean Corpuscular Volume 98.4 fl (81-99); Mean Platelet Volume 9.5 fl (7.4-10.4); Monocytes # 0.3 K/mm3 (0.1-1.0); Monocytes % 4.6 % (1.7-9.3); Neutrophils # 4.2 K/mm3 (1.8-7.8); Neutrophils % 78.4 % (37.0-80.0); Platelet Count 166 K/mm3 (142-424); Red Blood Count 3.22 M/mm3 (4.20-5.40); Red Cell Distribution Width 15.4 % (11.5-17.5); White Blood Count 5.4 K/mm3 (4.8-10.8)
[2020-05-01 13:24] LABS: Chloride 79 mmol/L (98-107); Potassium 3.5 mmoL/L (3.5-5.1); Sodium 138 mmol/L (136-145)
[2020-05-01 13:27] LABS: Alanine Aminotransferase 20 U/L (12-78); Albumin Level 3.7 g/dl (3.5-5.0); Albumin/Globulin Ratio 1.4 (1.1-1.8); Alkaline Phosphatase 118 U/L (38-126); Aspartate Amino Transferase 26 U/L (14-36); Bilirubin,Total 0.8 mg/dl (0.2-1.3); Blood Urea Nitrogen 13 mg/dl (7-17); Calcium 8.4 mg/dl (8.4-10.2); Creatinine Clearance Estimated 41 mL/min (50-200); Estimated Glomerular Filt Rate 125 ml/min (>60); GFR (African American) 151 ML/MIN (>60); Globulin 2.6 g/dL (1.3-3.2); Glucose 273 mg/dl (74-100); Total Protein,Serum 6.3 g/dl (6.3-8.2)
[2020-05-01 13:40] LABS: Anion Gap 12.5 mEq/L (5-15); Carbon Dioxide 50 mmol/L (22.0-30.0)
--- NOTE | 2020-05-01 13:42 | CT_ITS ---
PROCEDURE: CT LUMBAR SPINE WO CON CLINICAL HISTORY: bilat LE weakness Fall earlier in week. COMPARISON: No exams were available for comparison TECHNIQUE: Axial images obtained with sagittal and coronal reformats. All CT scans at the facility use one or more dose reduction, viz: automated exposure control, ma/kV adjustment per patient size (including targeted exams where dose is matched to indication, i.e. head), or iterative reconstruction technique. FINDINGS: There is a mildly exaggerated lumbar lordosis. No substantial scoliosis. No acute vertebral fracture is identified. The vertebral body heights are maintained. There is normal alignment of the spine with no spondylolisthesis. L1-L2: Mild discogenic endplate changes. Mild/moderate disc space narrowing. Vacuum gas. Moderate facet arthrosis. Mild bilateral neural foraminal narrowing. Normal central canal. L2-L3: Disc space narrowing, endplate sclerosis and small osteophytes formation. A small vacuum gas. Moderate left neural foraminal stenosis. Mild facet arthrosis. Unremarkable right neural foramen and central canal. L3-L4: Disc space narrowing, endplate sclerosis, vacuum gas and marginal osteophyte formation. Broad-based disc bulge. A small right paramedian disc osteophyte. Hypertrophy of ligamentum flavum. Severe bilateral neural foraminal and moderate central canal stenosis. L4-L5: Large size broad-based disc bulge. Severe bilateral neural foraminal stenosis. Facet arthrosis. Hypertrophy of the ligamentum flavum. Severe central canal stenosis. L5-S1. There is disc degeneration, disc contour abnormality and related osseous changes are seen with moderate bilateral facet arthrosis, causing severe bilateral neural foraminal and moderately severe central canal stenosis. There is atherosclerotic calcification of the abdominal aorta and iliac arteries. A 3.1 x 2.6 centimeter well-circumscribed right adrenal mass is seen containing a small fatty focus, likely a myelolipoma. IMPRESSION: 1. No acute lumbar vertebral fracture or subluxation is identified. 2. Multilevel moderately advanced degenerative lumbosacral spondylitis changes seen with moderate to severe bilateral neural foraminal and central canal stenosis, as described. 3. A 3.1 centimeter possible right adrenal myelolipoma. Dictated by: Tatum Grace 05/01/2020 14:28 Electronically signed by Tatum Grace in [facility] 05/01/2020 14:28
[2020-05-01 14:28] VITALS: BP 133/58; PULSE 80; O2SAT 95
--- NOTE | 2020-05-01 15:36 | PC.NURSE ---
pt up walking with walker approx 20ft, states she needs to sit down and is unable to walk any further.
--- NOTE | 2020-05-01 15:40 | PC.NURSE ---
2000cc urine output from good
[2020-05-01 16:10] VITALS: BP 132/74; PULSE 78; RESP 22; TEMP 36.6; O2SAT 98
[2020-05-01 16:18] LABS: Barbiturates Screen,Urine Negative ng/ml (<200)
[2020-05-01 16:19] LABS: Benzodiazepines Screen,Urine Positive ng/ml (<200)
[2020-05-01 16:20] LABS: Amphetamine/Metha Screen,Urine Negative ng/ml (<1000); Methadone Screen,Urine Negative ng/ml (<300)
[2020-05-01 16:21] LABS: Cannabinoid Screen,Urine Negative ng/ml (<50); Cocaine Screen,Urine Negative ng/ml (<300)
[2020-05-01 16:22] LABS: Opiate Screen,Urine Negative ng/ml (<300)
[2020-05-01 16:23] LABS: Phencyclidine Screen,Urine Negative ng/ml (<25)
== END 2020-05-01 16:13 | disposition home or self-care (01) ==
PROVIDERS: Emergency Provider Emergency Medicine; PCP Family Medicine
DX: E86.0 Dehydration (principal); I10 Essential (primary) hypertension; I48.0 Paroxysmal atrial fibrillation; E78.5 Hyperlipidemia, unspecified; E11.9 Type 2 diabetes mellitus without complications; Z99.81 Dependence on supplemental oxygen; J44.9 Chronic obstructive pulmonary disease, unspecified; Z86.73 Personal history of transient ischemic attack (TIA), and cerebral infarction without residual deficits; Z87.442 Personal history of urinary calculi; Z79.899 Other long term (current) drug therapy; Z90.49 Acquired absence of other specified parts of digestive tract; Z90.09 Acquired absence of other part of head and neck
CPT/HCPCS: 72131; 80053; 80305; 81001; 85025; 87086; 96365; 99283

== ENCOUNTER → 2020-05-18 17:20 | Outpatient (CLI) | payer MEDICAID, SELFPAY | PROVIDERS: Visit Provider Family Medicine | DX: B37.9 Candidiasis, unspecified (principal) | CPT/HCPCS: 87086 ==

== ENCOUNTER 2020-06-16 09:41 | Emergency (ER) | payer MEDICAID, SELFPAY ==
[2020-06-16] VITALS (7 sets, daily range): BP systolic 112–151; BP diastolic 45–90; PULSE 67–78; RESP 16–22; TEMP 36.6; O2SAT 90–93; BMI 40.2
--- NOTE | 2020-06-16 09:42 | ECG_ITS ---
APPROVED REPORT Exam: Resting ECG HR:69 bpm ECG Measurements Heart Rate 69 AXES IA 150 P 29 QRSd 88 QRS 45 QT 436 T 40 QTc 467 <Conclusion> Normal sinus rhythm Normal ECG Electronically signed by : Aaron Cornejo, 06/17/2020 14:59:56
--- NOTE | 2020-06-16 09:56 | XR_ITS ---
PROCEDURE: XR CHEST PORTABLE Referring Doctor: Hero [place]aec Patient Age:64Y CLINICAL HISTORY: AMS COMPARISON: CR XR CHEST PORTABLE from 02/09/2020 CR XR CHEST PORTABLE from 02/13/2020 CR XR CHEST PORTABLE from 04/12/[address] CHEST W CON from 04/12/2020 FINDINGS: AP portable upright chest performed today and compared to 02/13/2020 pCXR There is a similar pleural effusion and thickening appearance when compared to that exam There is suggestion of small right pleural effusion in addition to the pleural thickening again evident. pleural fluid is similar to the February 2020 but suspect pleural fluid more evident on today's CXR than April. The with today's CXR there is also additional linear parenchymal scarring and atelectasis towards the right lung base . Surgical clips at the right manjit inferior hilar region from prior right lower lobectomy again noted. Right manjit upper normal in prominence but similar to previous studies . Right upper lung roy are clear. But normal pulmonary vascularity bilaterally. Heart normal to upper normal size for portable study. Mediastinal structures appear similar. Left chest but question vague less than 1 cm nodular density projected over the left mid lung at 5th posterior interspace. This could merely be overlapping structures but noted and warrants follow-up CXR or CT with given history . Chest wall otherwise unremarkable IMPRESSION: Suggestion small right pleural effusion, in addition to the previous pleural thickening and scarring from prior right lower lobectomy-the pleural effusion appearance similar to February 2020 CXR. additional linear parenchymal scarring atelectasis right base seen today Clips right infrahilar region reflect prior right lower lobectomy The questioned vague less than 1 cm nodular density periphery of left midlung could be overlapping structures but warrants follow-up with given history of lung cancer Dictated by: Gabo Mireles MD 06/16/2020 11:36 Gabo Mireles MD in [place] 06/16/2020 11:36
--- NOTE | 2020-06-16 09:59 | HMH.EDAMS ---
ED Disposition Clinical Impression: UTI (urinary tract infection) with pyuria Altered mental status Qualifiers: Altered mental status type: disorientation Qualified Code(s): R41.0 - Disorientation, unspecified UTI (urinary tract infection) Qualifiers: Urinary tract infection type: acute cystitis Hematuria presence: with hematuria Qualified Code(s): N30.01 - Acute cystitis with hematuria Disposition: Home, Self-Care Condition on Discharge: Fair Instructions: DI for Altered Mental Status Prescriptions: cefUROXime axetiL [Ceftin 500mg Tab (GEQ)] 500 mg PO BID 7 Days #14 tab Transmission Status: Pending to [facility] Referrals: PCP,No [Non-Staff] - - Critical Care Critical Care Time: No Attestation: On 06/16/20, the high probability of a clinically significant, sudden or life threatening deterioration of the following system(s) required my full and direct attention, intervention and personal management. The time I documented below is in addition to time spent performing reported procedures but includes the following listed in this critical care notation. Medical Decision Making - Medical Records Medical records reviewed: Yes: I reviewed the patient's medical records. - Tj Inquiry Pt receiving controlled substance: No Vital Signs: 06/16/20 09:47 06/16/20 10:37 06/16/20 11:06 Temperature 97.9 F Temperature Source Rectal Pulse Rate [Left Radial] 67 69 78 Respiratory Rate 20 16 18 Blood Pressure [Right Arm] 116/54 L 117/58 L 136/60 Blood Pressure Mean [Right Arm] 74 77 85 Blood Pressure Source [Right Arm] Automatic Cuff Automatic Cuff Blood Pressure Position [Right Arm] Sitting Supine 02 Sat by Pulse Oximetry 90 L 90 L 93 L Oxygen Delivery Method Nasal Cannula Nasal Cannula Nasal Cannula Oxygen Flow Rate (LPM) 4 4 4 - Lab Data Lab Results 06/16/20 09:45: Urine Color Yellow, Urine Appearance Clear, Urine pH 6.0, Ur Specific [place] 1.020, Urine Protein Negative, Urine Glucose (UA) Trace, Urine Ketones Negative, Urine Blood 3+, Urine Nitrate Negative, Urine Bilirubin Negative, Urine Urobilinogen 0.2, Ur Leukocyte Esterase Negative, Urine RBC 10-20, Urine WBC 5-10, Ur Squamous Epith Cells 5-10, Urine Bacteria Trace 06/16/20 09:45: Urine Opiates Screen Negative, Urine Methadone Screen Negative, Ur Barbituates Screen Negative, Ur Phencyclidine Scrn Negative, Ur Amphetamines Screen Negative, U Benzodiazepines Scrn Positive H, Urine Cocaine Screen Negative, U Marijuana (THC) Screen Negative 06/16/20 09:50: WBC 7.0, RBC 3.09 L, Hgb 9.3 L, Hct 29.5 L, MCV 95.4, MCH 30.1, MCHC 31.6 L, RDW 15.2, Plt Count 243, MPV 9.2, Neut % (Auto) 79.3, Lymph % (Auto) 13.6, [place] % (Auto) 5.4, Eos % (Auto) 1.4, Baso % (Auto) 0.4, Neut # (Auto) 5.6, Lymph # (Auto) 1.0, [place] # (Auto) 0.4, Eos # (Auto) 0.1, Baso # (Auto) 0.0 06/16/20 09:50: Sodium 140, Potassium 3.1 L, Chloride 80 L, Carbon Dioxide 56 H*, Anion Gap 7.1, BUN 12, Creatinine 0.50 L, Estimated Creat Clear 91, Estimated GFR 125, Est GFR ( Amer) 151, Glucose 317 H, Calcium 8.5, Total Bilirubin 0.5, AST 17, ALT 13, Alkaline Phosphatase 130 H, Troponin I < 0.01, Total Protein 6.4, Albumin 3.5, Globulin 2.9, Albumin/Globulin Ratio 1.2 06/16/20 09:50: NT-Pro-B Natriuret Pep 536 H, TSH 1.36 06/16/20 09:50: Lactate 1.1 06/16/20 09:57: Specimen Source Right radial, O2 % 3lpm nc, ABG pH 7.38, ABG pCO2 100.3 H, ABG pO2 69.2 L, ABG HCO3 58.1 H, ABG Total CO2 61.2 H, ABG O2 Saturation 93, ABG Base Excess 33.0 H, Berhane Test Acceptable Result diagrams: 06/16/20 09:50 06/16/20 09:50 Orders (Tests/Meds): ORDERS Category Date Time Status Chest XR -- portable [XR chest portable] Stat Exams 06/16/20 09:56 Taken Troponin I Q3H Lab 06/16/20 13:00 Ordered Troponin I Q3H Lab 06/16/20 16:00 Ordered Blood Culture Stat Micro 06/16/20 09:50 Received - Radiology Data #1 Image Reviewed: Yes I reviewed the patient's radiology image Preliminary Findings: N
[2020-06-16 10:02] LABS: Basophils % 0.4 % (0.1-2.0); Eosinophils # 0.1 K/mm3 (0.0-0.4); Eosinophils % 1.4 % (0.1-12.0); Hematocrit 29.5 % (37.0-47.0); Hemoglobin 9.3 g/dL (12.2-16.2); Lymphocytes % 13.6 % (10-50); Mean Corpuscular HGB Conc 31.6 g/dL (31.8-35.4); Mean Corpuscular Hemoglobin 30.1 pg (27.0-31.2); Mean Corpuscular Volume 95.4 fl (81-99); Mean Platelet Volume 9.2 fl (7.4-10.4); Monocytes # 0.4 K/mm3 (0.1-1.0); Monocytes % 5.4 % (1.7-9.3); Neutrophils # 5.6 K/mm3 (1.8-7.8); Neutrophils % 79.3 % (37.0-80.0); Platelet Count 243 K/mm3 (142-424); Red Blood Count 3.09 M/mm3 (4.20-5.40); Red Cell Distribution Width 15.2 % (11.5-17.5)
[2020-06-16 10:03] LABS: Microscopic, Urine URINE MICROSCOPIC (MICROSCOPIC)
[2020-06-16 10:06] LABS: Chloride 80 mmol/L (98-107); Potassium 3.1 mmoL/L (3.5-5.1); Sodium 140 mmol/L (136-145)
[2020-06-16 10:08] LABS: Appearance,Urine CLEAR (Clear); Bilirubin,Urine Negative (Negative); Blood, Urine 3+ (Negative); Color,Urine YELLOW (Yellow); Glucose,Urine (UA) TRACE (Negative); Ketones,Urine Negative (Negative); Leukocyte Esterase,Urine Negative (Negative); Nitrate,Urine Negative (Negative); Protein,Urine Negative (Negative); Urobilinogen,Urine 0.2 EU/dl (0.2)
[2020-06-16 10:08] LABS: Alanine Aminotransferase 13 U/L (12-78); Alkaline Phosphatase 130 U/L (38-126); Aspartate Amino Transferase 17 U/L (14-36); Bilirubin,Total 0.5 mg/dl (0.2-1.3); Blood Urea Nitrogen 12 mg/dl (7-17); Creatinine Clearance Estimated 91 mL/min (50-200); Estimated Glomerular Filt Rate 125 ml/min (>60); GFR (African American) 151 ML/MIN (>60)
[2020-06-16 10:09] LABS: Albumin Level 3.5 g/dl (3.5-5.0); Albumin/Globulin Ratio 1.2 (1.1-1.8); Calcium 8.5 mg/dl (8.4-10.2); Globulin 2.9 g/dL (1.3-3.2); Glucose 317 mg/dl (74-100); Total Protein,Serum 6.4 g/dl (6.3-8.2)
[2020-06-16 10:12] LABS: Lactic Acid 1.1 mmol/L (0.7-2.1)
[2020-06-16 10:14] LABS: Bacteria,Urine Trace /lpf
[2020-06-16 10:18] LABS: Anion Gap 7.1 mEq/L (5-15); NT Pro Brain Natriuretic Pep. 536 pg/mL (0-125)
--- NOTE | 2020-06-16 10:19 | PC.NURSE ---
critical co2 reported to er provider at this time. awaiting further orders.
[2020-06-16 10:21] LABS: Carbon Dioxide 56 mmol/L (22.0-30.0); Troponin I < 0.01 ng/ml (0.00-0.034)
[2020-06-16 10:23] LABS: Benzodiazepines Screen,Urine Positive ng/ml (<200)
[2020-06-16 10:24] LABS: Amphetamine/Metha Screen,Urine Negative ng/ml (<1000); Barbiturates Screen,Urine Negative ng/ml (<200)
[2020-06-16 10:25] LABS: Cannabinoid Screen,Urine Negative ng/ml (<50); Methadone Screen,Urine Negative ng/ml (<300)
[2020-06-16 10:26] LABS: Cocaine Screen,Urine Negative ng/ml (<300)
[2020-06-16 10:27] LABS: Opiate Screen,Urine Negative ng/ml (<300); Phencyclidine Screen,Urine Negative ng/ml (<25)
[2020-06-16 10:40] LABS: Thyroid Stimulating Hormone 1.36 uIU/mL (0.465-4.68)
[2020-06-16 10:43] LABS: ABG HCO3 58.1 mmhg (22.0-26.0); ABG Oxygen Saturation 93 % (90-100); ABG PH 7.38 mmol/L (7.35-7.45); ABG PO2 69.2 mmhg (80-100); ABG TCO2 61.2 mmhg (23-27)
[2020-06-16 10:49] LABS: Allen's Test Acceptable; Source Right Radial
[2020-06-16 10:50] LABS: ABG PCO2 100.3 mmhg (35.0-45.0)
--- NOTE | 2020-06-16 12:41 | PC.NURSE ---
DIET TRAY GIVEN
--- NOTE | 2020-06-16 13:10 | PC.NURSE ---
GRACE REMOVED. 850CC URINE
== END 2020-06-16 13:37 | disposition home or self-care (01) ==
PROVIDERS: Emergency Provider Emergency Medicine; PCP Family Medicine
DX: N30.01 Acute cystitis with hematuria (principal); R06.02 Shortness of breath; E11.9 Type 2 diabetes mellitus without complications; E78.5 Hyperlipidemia, unspecified; I10 Essential (primary) hypertension; Z86.73 Personal history of transient ischemic attack (TIA), and cerebral infarction without residual deficits; Z87.442 Personal history of urinary calculi; Z90.49 Acquired absence of other specified parts of digestive tract; Z79.899 Other long term (current) drug therapy
CPT/HCPCS: 71045; 80053; 80305; 81001; 82803; 83605; 83880; 84443; 84484; 85025; 87040; 93005; 96365; 99285

== ENCOUNTER → 2020-07-21 11:55 | Outpatient (CLI) | payer MEDICAID, SELFPAY ==
[2020-07-21 14:05] LABS: Coronavirus 19 IgG Antibody Negative (Negative); Coronavirus 19 IgM Antibody Negative (Negative)
== END ==
PROVIDERS: Visit Provider Urology
DX: Z01.818 Encounter for other preprocedural examination (principal); N39.0 Urinary tract infection, site not specified
CPT/HCPCS: 36415; 86328

== ENCOUNTER 2020-07-23 08:16 | Day surgery (SDC) | payer MEDICAID, SELFPAY ==
[2020-07-18 14:05] VITALS: BMI 44.9
[2020-07-23 08:44] VITALS: BP 130/61; PULSE 66; RESP 18; TEMP 36.1; O2SAT 96
[2020-07-23 09:01] LABS: POC Glucose,Bedside 352 (70-110)
== END 2020-07-23 08:44 ==
LOC: OUTP 08:16
PROVIDERS: PCP Family Medicine; Visit Provider Urology
PROC: (CPT 52000; principal; 2020-07-23 09:00)
DX: Z53.8 Procedure and treatment not carried out for other reasons (principal); Z08 Encounter for follow-up examination after completed treatment for malignant neoplasm; Z85.51 Personal history of malignant neoplasm of bladder
CPT/HCPCS: 52000; 82962

== ENCOUNTER 2020-09-15 08:09 | Inpatient (IN) | payer OTHER, SELFPAY ==
[2020-09-14 12:28] VITALS: BMI 44.9
[2020-09-15] VITALS (15 sets, daily range): BP systolic 110–149; BP diastolic 44–79; PULSE 83–109; RESP 2–22; TEMP 36.5–37.2; O2SAT 79–99; BMI 44.9; BMI 43.5
--- NOTE | 2020-09-15 08:12 | XR_ITS ---
PROCEDURE: XR CHEST PORTABLE CLINICAL HISTORY: SOA history of right lung cancer COMPARISON: CR XR CHEST PORTABLE from 02/13/2020 CR XR CHEST PORTABLE from 04/12/[address] CHEST W CON from 04/12/2020 CR XR CHEST PORTABLE from 06/16/2020 FINDINGS: This is a good inspiration. There is chronic pleural parenchymal scarring at the right base and right costophrenic angle. There is a surgical clip right infrahilar region. The right upper lung field and left lung field is clear. There is borderline cardiomegaly but there is no pulmonary congestion. IMPRESSION: Chronic pleural parenchymal changes right base likely secondary to previous right lower lobectomy, no definite acute chest pathology noted Dictated by: Dr. Emigdio Armstrong MD 09/15/2020 09:43 Dr. Emigdio Armstrong MD in [place] 09/15/2020 09:43
--- NOTE | 2020-09-15 08:20 | PC.NURSE ---
rad notified of xray order
--- NOTE | 2020-09-15 08:25 | PC.NURSE ---
notified RT of albuterol inhaler treatment
[2020-09-15 08:31] LABS: Basophils % 0.2 % (0.1-2.0); Eosinophils # 0.1 K/mm3 (0.0-0.4); Eosinophils % 0.7 % (0.1-12.0); Hematocrit 31.5 % (37.0-47.0); Hemoglobin 9.4 g/dL (12.2-16.2); Lymphocytes # 0.8 K/mm3 (0.7-4.5); Mean Corpuscular HGB Conc 29.9 g/dL (31.8-35.4); Mean Corpuscular Hemoglobin 27.9 pg (27.0-31.2); Mean Corpuscular Volume 93.3 fl (81-99); Mean Platelet Volume 9.2 fl (7.4-10.4); Monocytes # 0.4 K/mm3 (0.1-1.0); Monocytes % 4.3 % (1.7-9.3); Neutrophils # 8.3 K/mm3 (1.8-7.8); Neutrophils % 86.8 % (37.0-80.0); Platelet Count 273 K/mm3 (142-424); Red Blood Count 3.38 M/mm3 (4.20-5.40); Red Cell Distribution Width 15.3 % (11.5-17.5); White Blood Count 9.6 K/mm3 (4.8-10.8)
[2020-09-15 08:36] LABS: Chloride 93 mmol/L (98-107); Potassium 4.1 mmoL/L (3.5-5.1); Sodium 141 mmol/L (136-145)
[2020-09-15 08:38] LABS: Blood Urea Nitrogen 8 mg/dl (7-17); Creatinine Clearance Estimated 41 mL/min (50-200); Estimated Glomerular Filt Rate 125 ml/min (>60); GFR (African American) 151 ML/MIN (>60)
[2020-09-15 08:39] LABS: Alanine Aminotransferase 20 U/L (12-78); Albumin Level 4.1 g/dl (3.5-5.0); Albumin/Globulin Ratio 1.4 (1.1-1.8); Alkaline Phosphatase 164 U/L (38-126); Aspartate Amino Transferase 20 U/L (14-36); Bilirubin,Total 0.7 mg/dl (0.2-1.3); Calcium 8.9 mg/dl (8.4-10.2); Glucose 330 mg/dl (74-100); Total Protein,Serum 7.1 g/dl (6.3-8.2)
[2020-09-15 08:40] LABS: Lactic Acid 1.3 mmol/L (0.7-2.1)
[2020-09-15 08:46] LABS: MANUAL DIFFERENTIAL MANUAL DIFFERENTIAL (MANUAL DIFF)
--- NOTE | 2020-09-15 08:46 | HMH.EDGENADL ---
ED Disposition Clinical Impression: COPD exacerbation, Hypoxia Disposition: Admitted As Inpatient Condition on Discharge: Serious - Critical Care Critical Care Time: No Attestation: On 09/15/20, the high probability of a clinically significant, sudden or life threatening deterioration of the following system(s) required my full and direct attention, intervention and personal management. The time I documented below is in addition to time spent performing reported procedures but includes the following listed in this critical care notation. Medical Decision Making - Medical Records Medical records reviewed: Yes: I reviewed the patient's medical records. - Tj Inquiry Pt receiving controlled substance: No Vital Signs: 09/15/20 08:10 09/15/20 08:41 09/15/20 08:42 Temperature 98.9 F Temperature Source Oral Pulse Rate [Right Radial] 109 H 96 H Respiratory Rate 22 20 Blood Pressure [Right Arm] 130/67 136/59 L Blood Pressure Mean [Right Arm] 88 84 Blood Pressure Source [Right Arm] Automatic Cuff Automatic Cuff Blood Pressure Position [Right Arm] Sitting Sitting 02 Sat by Pulse Oximetry 79 L 95 95 Oxygen Delivery Method Nasal Cannula Nasal Cannula Nasal Cannula Oxygen Flow Rate (LPM) 6 4 4 09/15/20 09:35 Temperature Temperature Source Pulse Rate [Right Radial] 93 H Respiratory Rate Blood Pressure [Right Arm] 110/44 L Blood Pressure Mean [Right Arm] 66 Blood Pressure Source [Right Arm] Automatic Cuff Blood Pressure Position [Right Arm] Sitting 02 Sat by Pulse Oximetry 95 Oxygen Delivery Method Nasal Cannula Oxygen Flow Rate (LPM) 4 - Lab Data Lab Results 09/15/20 08:15: WBC 9.6, RBC 3.38 L, Hgb 9.4 L, Hct 31.5 L, MCV 93.3, MCH 27.9, MCHC 29.9 L, RDW 15.3, Plt Count 273, MPV 9.2, Neut % (Auto) 86.8 H, Lymph % (Auto) 8.0 L, [place] % (Auto) 4.3, Eos % (Auto) 0.7, Baso % (Auto) 0.2, Neut # (Auto) 8.3 H, Lymph # (Auto) 0.8, [place] # (Auto) 0.4, Eos # (Auto) 0.1, Baso # (Auto) 0.0, Total Counted 100, Neutrophils % (Manual) 85 H, Lymphocytes % (Manual) 13, Monocytes % (Manual) 1 L, Eosinophils % (Manual) 1, Platelet Estimate Normal, RBC Morphology Normal 09/15/20 08:15: Sodium 141, Potassium 4.1, Chloride 93 L, Carbon Dioxide 41 H*, Anion Gap 11.1, BUN 8, Creatinine 0.50 L, Estimated Creat Clear 41, Estimated GFR 125, Est GFR ( Amer) 151, Glucose 330 H, Calcium 8.9, Total Bilirubin 0.7, AST 20, ALT 20, Alkaline Phosphatase 164 H, Troponin I < 0.01, Total Protein 7.1, Albumin 4.1, Globulin 3.0, Albumin/Globulin Ratio 1.4 09/15/20 08:15: Mycoplasma pneumon IgM Non-reactive 09/15/20 08:15: Lactate 1.3 09/15/20 08:15: SARS-CoV-2 IgG Ab (Rapid) Negative, SARS-CoV-2 IgM Ab (Rapid) Negative 09/15/20 08:52: VBG pH 7.22 L, VBG pCO2 97.3 H, VBG pO2 45.3 H, VBG HCO3 39.1 H, VBG Total CO2 42.1 H, VBG O2 Saturation 76.9 H, VBG Base Excess 11.4 H Result diagrams: 09/15/20 08:15 09/15/20 08:15 Orders (Tests/Meds): ED MEDICATIONS Generic Name Dose Route Start Last Admin Trade Name Freq PRN Reason Stop Dose Admin Albuterol/Ipratropium 4 puff 09/15/20 10:14 Combivent 20mcg/100mcg Respimat Inhaler IH 10/15/20 10:13 ONCE PRN Shortness Of Breath Azithromycin 500 mg/ Sodium 250 mls @ 250 mls/hr 09/16/20 08:15 Chloride IV 09/30/20 08:14 Q24H DANN Protocol Ceftriaxone Sodium 1 gm/ 50 mls @ 100 mls/hr 09/16/20 08:15 Sodium Chloride IV 09/30/20 08:14 Q24H DANN Protocol Insulin Human Lispro 0 unit 09/15/20 11:00 Humalog 100 Units/Ml 3ml Vial (Ssi) SQ 10/15/20 10:59 ACHS DANN Protocol Miscellaneous 1 unit 09/15/20 10:14 Aerochamber/Optihaler MC 09/15/20 10:15 ONCE ONE Nicotine 21 mg 09/15/20 10:14 Nicotine 21mg/24hr Patch TD 10/15/20 10:13 DAILYP PRN Nicotine Cravings Discontinued Medications Generic Name Dose Route Start Last Admin Trade Name Freq PRN Reason Stop Dose Admin Albuterol Sulfate 2.5 mg 09/15/20 08:15
[2020-09-15 08:47] LABS: Anion Gap 11.1 mEq/L (5-15); Carbon Dioxide 41 mmol/L (22.0-30.0)
[2020-09-15 08:57] LABS: Troponin I < 0.01 ng/ml (0.00-0.034)
[2020-09-15 08:58] LABS: VBG Base Excess 11.4 mmol/L (-2.4-2.3); VBG HCO3 39.1 mmol/L (23-30); VBG Oxygen Saturation 76.9 % (50-70); VBG PH 7.22 mmol/L (7.31-7.41); VBG PO2 45.3 mmol/L (28-40); VBG Total CO2 42.1 mmol/L (23-27)
[2020-09-15 09:02] LABS: VBG PCO2 97.3 mmol/L (35-51)
[2020-09-15 09:04] LABS: Eosinophils % 1 % (0-3); Lymphocytes % 13 % (10-50); Monocytes % 1 % (2-9); Neutrophils % 85 % (42-76); Platelet Estimate Normal; RBC Morphology Normal; Total Cells Counted 100
--- NOTE | 2020-09-15 09:07 | ECG_ITS ---
APPROVED REPORT Exam: Resting ECG HR:94 bpm ECG Measurements Heart Rate 94 AXES TN 194 P 26 QRSd 86 QRS 61 QT 362 T 34 QTc 452 Conclusion Normal sinus rhythm Normal ECG Electronically signed by : Aaron Cornejo, 09/15/2020 14:27:40
[2020-09-15 09:11] LABS: Coronavirus 19 IgG Antibody Negative (Negative); Coronavirus 19 IgM Antibody Negative (Negative)
[2020-09-15 09:35] LABS: Mycoplasma Pneumo IGM (Rapid) Non-Reactive (Non-Reactiv)
[2020-09-15 11:31] LABS: POC Glucose,Bedside 303 (70-110)
--- NOTE | 2020-09-15 15:25 | HMH.HP ---
*Chief complaint: copd exacerbation *History of present illness: 64 year-old female with a history of lung cancer status post lobectomy, COPD on home oxygen who presents the emergency department today with shortness of breath. Patient states she has been feeling weak over the past several days and was having shortness of breath this morning. She fell out of bed but did not hit her head. No significant injury. Called EMS. EMS placed her on 4 L of oxygen. Gave her a breathing treatment which improved her symptoms. Patient also reports she feels like she had a fever over the past several days. No other complaints. Patient is a 64-year-old female who presents to the emergency department today with subjective fever and shortness of breath. Differential includes bacterial pneumonia, viral pneumonia including COVID-19, COPD exacerbation. Patient was off oxygen on arrival to the emergency department and hypoxic. Placed on 6 L which improved her oxygen saturation. Mentating well throughout. Physical exam notable for bilateral wheezing. Ordered albuterol, steroids, ceftriaxone, azithromycin. Patient's oxygen requirement is increased from her baseline. She will need admission to the hospital. Ordered labs and x-ray. X-ray showed possible pneumonia. Labs notable for respiratory acidosis. Admit Above per ER document Patient is known to me from the office. She has a longstanding history of COPD. She is status post a right lower lobe lobectomy for a lung neoplasm. Subsequent CT of the chest showed no tumor recurrence. She also has a history of a bladder carcinoma, and is followed by Dr. Anne. He has a propensity for CO2 retention and hypoxia, has a previous admission per Dr. Ayon's service. Treatment at that point involved BiPAP. Initial encounter with her today she was placed on BiPAP with a setting of 20/10, rate of 20, 45% O2. Gases came back with a pH of 7.31, PCO2 of 83, PO2 of 78 and 95% saturation. Represents some improvement from her admission. Patient was noted to be somnolent in the emergency room. She is slightly less somnolent now. Will open her eyes and answer questions. [facility] History Medical History: Reports:: Arrhythmia, Atrial Fibrillation, Cancer, Cerebrovascular Accident, Diabetes Mellitus Type 2, Hyperlipidemia, Hypertension, Lung Disease (O2 dependent COPD), Kidney Stones Denies:: Diabetes Mellitus Type 1, Internal Pacemaker, MRSA, Seizures *Have you ever received a pneumonia vaccine?: No *Have you received a flu vaccine this season?: Yes Other Medical History: Reports: Blood Transfusion Reaction, Other (DVT) Laterality Cases: Bilateral: Tonsillectomy Other Surgeries: Yes: Cancer Surgery, Cholecystectomy, Tubal Ligation, Other (Right lower lobectomy). No: Pacemaker Amputation: No Fractures: No - *Social History Last grade of school completed: Some college Smoking Status: Former smoker Tobacco Type: cigarettes # Packs/Day (cigarettes): 1 Alcohol Intake: never Substance Use Type: prescription drug *Occupational Status:: disabled Housing: house Household Members: spouse *Travel in the last 8 weeks: None Family Hx:: Cancer, Coronary Artery Disease, Stroke Review of Systems - Constitutional Reports fatigue, Reports lack of energy, Reports weakness - Eyes Denies change in vision - ENT Denies abnormal hearing - *Cardiovascular Reports shortness of breath, Reports generalized swelling, Reports irregular heart rhythm - *Respiratory Reports cough, Reports shortness of breath - *Gastrointestinal Denies abdominal pain - *Genitourinary Denies difficulty urinating - *Musculoskeletal Reports back pain, Reports limited joint movement, Reports muscle weakness - Integumentary/Breasts Denies yellowing of the skin - *Neurologic Reports abnormal walking, Reports weakness, Denies abnormal speech - Psychiatric Reports confusion - Endocrine Denies cold intolerance - Hematologic/Lymphatic Denies ea
[2020-09-15 15:29] LABS: ABG Base Excess 14.5 mmol/L (-2.4-2.3); ABG HCO3 40.8 mmhg (22.0-26.0); ABG Oxygen Saturation 95 % (90-100); ABG PH 7.31 mmol/L (7.35-7.45); ABG PO2 78.8 mmhg (80-100); ABG TCO2 43.3 mmhg (23-27)
[2020-09-15 15:33] LABS: Oxygen 45% %
[2020-09-15 15:34] LABS: Allen's Test Non Applicable; Pressure Support 10; Vent Rate 20
[2020-09-15 15:35] LABS: ABG PCO2 83.4 mmhg (35.0-45.0); Source Right Brachial
--- NOTE | 2020-09-15 15:54 | CT_ITS ---
PROCEDURE: CT ANGIO CHEST CLINCIAL INDICATION: Hypoxia, history of previous stroke COMPARISON: No exams were available for comparison TECHNIQUE: IV Contrast: 70ML Isovue 370 Axial images obtained with sagittal and coronal reformats. All CT scans at the facility use one or more dose reduction, viz: automated exposure control, ma/kV adjustment per patient size (including targeted exams where dose is matched to indication, i.e. head), or iterative reconstruction technique. FINDINGS: HEART AND MEDIASTINAL STRUCTURES: There is mild cardiomegaly with left ventricular prominence. There is mild aortic tortuosity. There is excellent vascular opacification and there is no CT evidence of pulmonary emboli there is no evidence of aortic dissection. LUNGS AND PLEURAL SPACES: There is a moderate size right pleural effusion layering on the right lung and extending up to the lung apex. There is some pleural fluid extending into the major fissure as well. There is a small left pleural effusion with minimal atelectasis at the left posterior gutter. BONY STRUCTURES: There are moderate multilevel degenerate changes of the thoracic spine. UPPER ABDOMEN: There is a hypodense lesion involving the right adrenal gland likely a cyst measuring 2.8 2.2 x 2.5 cm. ADDITIONAL FINDINGS: There appears to be mild diffuse enlargement of the thyroid gland but not completely imaged on this study showing a hypodense lesion left lobe and recommend follow-up thyroid ultrasound for better evaluation. IMPRESSION: Mild cardiomegaly with moderate size right pleural effusion possibly noncardiogenic in etiology versus sequela of treated chronic congestive heart failure. There is no evidence of pulmonary embolism or aortic dissection. Hypodense right adrenal nodule likely a cyst but showing somewhat irregular rim enhancement and possible internal septations and recommend follow-up CT scan abdomen and pelvis for better evaluation. Dictated by: Dr. Emigdio Armstrong MD 09/16/2020 12:38 Dr. Emigdio Armstrong MD in [place] 09/16/2020 12:38
--- NOTE | 2020-09-15 15:55 | CT_ITS ---
PROCEDURE: CT HEAD/BRAIN WO CON CLINICAL INDICATION: history of stroke, fall COMPARISON: CT HEADWO CT head/brain wo con from 02/11/[address] HEAD/BRAIN WO CON from 10/21/2019 TECHNIQUE: Axial images obtained. All CT scans at the facility use one or more dose reduction, viz: automated exposure control, ma/kV adjustment per patient size (including targeted exams where dose is matched to indication, i.e. head), or iterative reconstruction technique. FINDINGS: No midline shift, mass effect, intracranial hemorrhage, hydrocephalus, or extra-axial fluid collection is evident. Old ischemic infarcts right mid parietal lobe and medial aspect right occipital lobe both seen on the previous study 10/21/2019. There are mild periventricular hypodensities consistent with chronic ischemic white matter changes. The sylvian fissures and cortical sulci are somewhat prominent. No definite acute or semi acute infarct is identified. The calvarium has an unremarkable appearance except for a tiny exostosis left frontal bone just to the left of midline. No mastoid effusion. No sinus air-fluid level. IMPRESSION: Findings of age-appropriate cortical atrophy, stable old ischemic infarcts right MCA and right [employer] distribution, no acute intracranial pathology noted Dictated by: Dr. Emigdio Armstrong MD 09/15/2020 17:28 Dr. Emigdio Armstrong MD in [place] 09/15/2020 17:28
[2020-09-15 17:24] LABS: POC Glucose,Bedside 410 (70-110)
--- NOTE | 2020-09-15 18:30 | PC.NURSE ---
PT IS SITTING IN THE BED EATING DINNER AT THIS TIME. PT STATES SHE FEELS MUCH BETTER AFTER BEING ON THE BIPAP FOR A FEW HOURS. PT TOLERATED BIPAP WELL. BIPAP WAS REMOVED SO PT COULD EAT DINNER. O2 SATURATION MAINTAINED 90-94% ON 4 L NC WHILE EATING. PT IS A 1 ASSIST TO GET TO THE BSC. WHEN PT INITIALLY ARRIVED TO THE FLOOR FROM THE ED SHE WAS VERY SLUGGISH AND SLOW TO RESPOND. PT IS NOW MORE AWAKE AND MORE COOPERATIVE WITH ANSWERING QUESTIONS. LUNG SOUNDS HAVE SCATTERED WHEEZES. ABDOMEN IS SOFT/NON TENDER WITH HYPOACTIVE BOWEL SOUNDS. PT STATES SHE CANNOT REMEMBER THE LAST TIME SHE HAD A BOWEL MOVEMENT. VSS. PT REFUSED HER AFTERNOON DOSE OF CARDIZEM B/C SHE STATES SHE HAS ONLY BEEN TAKING IT ONCE A DAY AND THAT WAS ALWAYS IN THE MORNING. WILL CONTINUE TO MONITOR.
[2020-09-15 18:37] LABS: Microscopic, Urine URINE MICROSCOPIC (MICROSCOPIC)
[2020-09-15 18:51] LABS: Appearance,Urine CLEAR (Clear); Bilirubin,Urine Negative (Negative); Blood, Urine TRACE-I (Negative); Color,Urine YELLOW (Yellow); Glucose,Urine (UA) 3+ (Negative); Ketones,Urine 1+ (Negative); Leukocyte Esterase,Urine Negative (Negative); Nitrate,Urine Negative (Negative); Protein,Urine Negative (Negative); Urobilinogen,Urine 0.2 EU/dl (0.2)
[2020-09-15 18:58] LABS: ABG Base Excess 14.9 mmol/L (-2.4-2.3); ABG Oxygen Saturation 95 % (90-100); ABG PH 7.26 mmol/L (7.35-7.45); ABG TCO2 44.9 mmhg (23-27); Allen's Test Y; Oxygen 4 %; Source R/R
[2020-09-15 21:29] LABS: POC Glucose,Bedside 279 (70-110)
[2020-09-16] VITALS (16 sets, daily range): BP systolic 103–147; BP diastolic 47–68; PULSE 61–95; RESP 0–30; TEMP 36.4–37; O2SAT 94–100; BMI 43.9
--- NOTE | 2020-09-16 04:24 | PC.NURSE ---
pt has rested most of shift, remained on Bipap this shift, except to come off for medication administration and to get a drink, O2 sats 95-99%, lung sounds diminished with some expiratory wheezing noted, HR 86-92
[2020-09-16 05:58] LABS: POC Glucose,Bedside 225 (70-110)
[2020-09-16 07:23] LABS: Chloride 92 mmol/L (98-107)
[2020-09-16 07:24] LABS: Potassium 4.2 mmoL/L (3.5-5.1); Sodium 140 mmol/L (136-145)
[2020-09-16 07:26] LABS: Blood Urea Nitrogen 13 mg/dl (7-17); Creatinine Clearance Estimated 39 mL/min (50-200); Estimated Glomerular Filt Rate 161 ml/min (>60); GFR (African American) 195 ML/MIN (>60)
[2020-09-16 07:27] LABS: Calcium 8.3 mg/dl (8.4-10.2); Glucose 229 mg/dl (74-100)
[2020-09-16 07:29] LABS: Eosinophils % 0.1 % (0.1-12.0); Hematocrit 26.8 % (37.0-47.0); Lymphocytes # 0.7 K/mm3 (0.7-4.5); Lymphocytes % 12.6 % (10-50); Mean Corpuscular HGB Conc 29.7 g/dL (31.8-35.4); Mean Corpuscular Hemoglobin 27.9 pg (27.0-31.2); Mean Corpuscular Volume 93.8 fl (81-99); Mean Platelet Volume 8.4 fl (7.4-10.4); Monocytes # 0.3 K/mm3 (0.1-1.0); Monocytes % 4.8 % (1.7-9.3); Neutrophils # 4.3 K/mm3 (1.8-7.8); Neutrophils % 82.4 % (37.0-80.0); Platelet Count 234 K/mm3 (142-424); Red Blood Count 2.86 M/mm3 (4.20-5.40); Red Cell Distribution Width 15.3 % (11.5-17.5); White Blood Count 5.2 K/mm3 (4.8-10.8)
[2020-09-16 07:36] LABS: Anion Gap 4.2 mEq/L (5-15); Carbon Dioxide 48 mmol/L (22.0-30.0)
--- NOTE | 2020-09-16 09:46 | P.CONPHA_ITS ---
[facility] [place] Pharm[facility] VTE Monitoring - Patient Demographics Admission date: 09/16/20 Report Date: 09/16/20 Time: 09:46 Allergies/Adverse Reactions: Patient Allergies diclofenac Allergy (Verified 07/23/20 08:25) Unknown allergy reaction Height: 1.52 m Weight: 101.406 kg Patient Problems: Current Active Problems Altered mental status (Acute) Hypoxia (Acute) History of lung cancer (Chronic) Erosive osteoarthritis of multiple sites (Acute) Lumbar disc disease with radiculopathy (Chronic) COPD exacerbation (Acute) Acute respiratory failure with hypoxia and hypercapnia (Acute) Pneumonia (Acute) Hypertension (Chronic) History of CVA (cerebrovascular accident) (Chronic) Morbid obesity (Chronic) Hyperglycemia due to diabetes mellitus (Chronic) COPD (chronic obstructive pulmonary disease) (Acute) Weakness (Acute) - VTE Risk Labs: VTE Related Lab Results Hgb 8.0 g/dL (12.2-16.2) L 09/16/20 06:35 Hct 26.8 % (37.0-47.0) L 09/16/20 06:35 Plt Count 234 K/mm3 (142-424) 09/16/20 06:35 BUN 13 mg/dl (7-17) D 09/16/20 06:35 Creatinine 0.40 mg/dl (0.52-1.04) L 09/16/20 06:35 Estimated Creat Clear 39 mL/min (50-200) 09/16/20 06:35 VTE Score: 4 VTE Risk Level: Low Risk - Prophylaxis Types of VTE Prophylaxis: Pharmacological (ELIQUIS REORDERED) Location of Applied Device: Not Applicable
[2020-09-16 11:17] LABS: POC Glucose,Bedside 272 (70-110)
[2020-09-16 15:50] LABS: POC Glucose,Bedside 309 (70-110)
--- NOTE | 2020-09-16 16:22 | HMH.ACPN2 ---
Internal Medicine - PN: Subj *Date: 09/16/20 *Time: 16:30 Interval history: Patient relays an uneventful night. Nursing staff had noted marked clinical improvement after being on BiPAP. She had marked CO2 retention on admission, mentation changes associated with. By history she had fallen out of her bed. She has a history of stroke. We did a CT of the brain which showed old stroke changes, nothing acute. Also did a CTA of her chest. She does have a history of lung cancer, status post a right lower lobe ectomy. She is slated to have a cystoscopy in the very near future per Dr. Anne. She is awake, lucid, and clear. She appears to be in normal sinus rhythm. She had had some wheezing prior to her admission, this has largely resolved. She is clinically much improved. Hemoglobin pending this morning is 8.0. Will repeat ABGs on BiPAP. Covid antibodies were negative. Exam Vital signs and Labs for Last 24 Hours: Temp Pulse Resp BP Pulse Ox 98.6 F 86 20 110/62 96 09/16/20 16:00 09/16/20 16:00 09/16/20 16:00 09/16/20 16:00 09/16/20 16:00 Laboratory Results - last 24 hr 09/15/20 16:58: POC Glucose 410 H* 09/15/20 18:29: Urine Color Yellow, Urine Appearance Clear, Urine pH 6.0, Ur Specific [place] 1.010, Urine Protein Negative, Urine Glucose (UA) 3+, Urine Ketones 1+, Urine Blood Trace-i, Urine Nitrate Negative, Urine Bilirubin Negative, Urine Urobilinogen 0.2, Ur Leukocyte Esterase Negative, Urine RBC 3-5, Ur Squamous Epith Cells 5-10 09/15/20 18:57: Specimen Source R/r, O2 % 4, ABG pH 7.26 L, ABG pCO2 95.0 H, ABG pO2 77.0 L, ABG HCO3 42.0 H, ABG Total CO2 44.9 H, ABG O2 Saturation 95, ABG Base Excess 14.9 H, Berhane Test Y 09/15/20 21:21: POC Glucose 279 H 09/16/20 05:49: POC Glucose 225 H 09/16/20 06:35: WBC 5.2 D, RBC 2.86 L, Hgb 8.0 L, Hct 26.8 L, MCV 93.8, MCH 27.9, MCHC 29.7 L, RDW 15.3, Plt Count 234, MPV 8.4, Neut % (Auto) 82.4 H, Lymph % (Auto) 12.6, Richardson % (Auto) 4.8, Eos % (Auto) 0.1, Baso % (Auto) 0.0 L, Neut # (Auto) 4.3, Lymph # (Auto) 0.7, Richardson # (Auto) 0.3, Eos # (Auto) 0.0, Baso # (Auto) 0.0 09/16/20 06:35: Sodium 140, Potassium 4.2, Chloride 92 L, Carbon Dioxide 48 H*, Anion Gap 4.2 L, BUN 13 D, Creatinine 0.40 L, Estimated Creat Clear 39, Estimated GFR 161, Est GFR ( Amer) 195 D, Glucose 229 H D, Calcium 8.3 L 09/16/20 10:58: POC Glucose 272 H 09/16/20 15:33: POC Glucose 309 H* I & O for Last 24 hours: Intake & Output 09/13/20 09/14/20 09/15/20 09/16/20 23:59 23:59 23:59 23:59 Intake Total 240 / 240 1200 / 1200 Output Total 550 / 550 775 / 775 Balance -310 / -310 425 / 425 Weight 223 lb 2 oz 223 lb 9 oz - Constitutional no acute distress, morbidly obese - *Routine HEENT Exam Head: Present: normocephalic Eye: Present: EOMI, PERRL ENT: Present: mucous membranes moist - *Routine Neck Exam Present: supple. Absent: lymphadenopathy - *Routine Respiratory Exam Present: decreased breath sounds, diminished air movement. Absent: accessory muscle use, wheezes, crackles - *Routine Cardiovascular Exam Present: RRR - *Routine Abdominal Exam Present: soft, normoactive bowel sounds. Absent: tenderness - *Routine Extremities Exam Present: edema. Absent: cyanosis, clubbing, calf tenderness - *Routine Skin Exam Present: warm. Absent: rash - *Routine Neurological Exam Present: alert, oriented X3, vision grossly intact, hearing grossly intact, normal speech. Absent: facial asymmetry Assessment and Plan (1) COPD exacerbation Status: Acute Category: Medical Code(s): J44.1 - Chronic obstructive pulmonary disease with (acute) exacerbation (2) Hypoxia Status: Acute Category: Medical Code(s): R09.02 - Hypoxemia (3) Acute respiratory failure with hypoxia and hypercapnia Status: Acute Category: Medical Code(s): J96.01 - Acute respiratory failure with hypoxia; J96.02 - Acute respiratory failure with hypercapnia (4) Altered mental status Status:
--- NOTE | 2020-09-16 16:48 | PC.NURSE ---
Pt has been pleasant and cooperative this shift. A&O X4. No complaints of pain. Pt has remained on BiPap for the majority of the shift, except for meals and medication administration. When not using BiPap, pt wears NC @ 4 LPM. O2 sats. have remained >90%. Pt ambulates with assistance X1 to the [facility] and voids clear, yellow urine without issue. No BM this shift. Skin is C/D/I. 1+ pitting edema noted to BLE. Lung sounds reveal expiratory wheezes. FSBS results have been 272 and 309. 20 G peripheral IV in the LT AC is patent and SL. VSS. Call light within reach. Will continue to monitor.
[2020-09-16 21:01] LABS: POC Glucose,Bedside 349 (70-110)
[2020-09-17] VITALS (22 sets, daily range): BP systolic 118–161; BP diastolic 58–76; PULSE 59–87; RESP 16–21; TEMP 36.4–36.9; O2SAT 90–100; BMI 44.2; BMI 44.1
--- NOTE | 2020-09-17 03:22 | PC.NURSE ---
Pt has been on Bipap most of shift and has tolerated it well. She is currently NPO at this time for consults in AM. Pt has cardiac, pulmonology and urology consults. Pt also has CT of Abd/pelvis this AM. It was noted that pt had previously scheduled cystoscopy outpt for today. She has denied any discomfort. No c/o soa. Lugs diminished with expiratory wheezing noted during assessment. VSS. Medications administered per dec. Call light within reach. Will continue to monitor.
--- NOTE | 2020-09-17 06:00 | CT_ITS ---
PROCEDURE: CT ABDOMEN PELVIS WO/W CON CLINICAL INDICATION: adrenal lesion, history of lung cancer COMPARISON: CT AGCHEST CT angio chest from 02/11/[address] CHEST W CON from 04/12/[address] ANGIO CHEST from 09/15/2020 TECHNIQUE: IV Contrast: 75ML Isovue 370 Oral Contrast None Axial images obtained with sagittal and coronal reformats. All CT scans at the facility use one or more dose reduction, viz: automated exposure control, ma/kV adjustment per patient size (including targeted exams where dose is matched to indication, i.e. head), or iterative reconstruction technique. FINDINGS: LOWER THORAX: There is a small right pleural effusion and trace left pleural effusion with atelectatic changes in the right lower lobe. ABDOMEN & PELVIS: There are 3 hypodense liver lesions. 1 lesion is stable at 12 mm in the medial segment of the left hepatic lobe which has been present dating back to 02/11/2019. There are 2 additional hypodense liver lesions 1 in the posterior segment of the right hepatic lobe at 2.6 x 2 cm in the other also in the posterior segment of the right hepatic lobe posterior to the right hepatic vein measuring 1.9 cm. These lesions are not identified on previous chest CTs which cover this area in are suspicious for metastatic disease. These lesions are only visible on the portal venous phase and not on the delayed images and not on the arterial phase of the chest CT a of 09/15/2020. The spleen and pancreas have an unremarkable appearance. There are nonobstructing bilateral renal calculi and there is a 2.9 cm left renal cyst. Small amount of fluid is present in the right pericolic gutter. There are few small nodes in the periaortic region. There is a complex right adrenal nodule. The unenhanced images give this an average Hounsfield unit measurement of -18. Portal venous density is 23 Hounsfield units and 15 minutes delayed density is -7 Hounsfield units. The relative washout is greater than 40 percent suggestive of an adenoma. However, there is some rim like enhancement of this nodule laterally on the right giving this a complex category. There is some subcutaneous edema along the posterior chest and lower back. There is a small umbilical hernia containing fat. There is mild stranding of the fat in the right pericolic gutter and along the lower aspect of the liver. IMPRESSION: 1. Right adrenal nodule may represent an adenoma. The nodule is slightly larger compared to an older exam of 02/11/2019 and there is some rim like thickening laterally. Suggest 3 month follow-up. 2. New hypodense hepatic lesions suspicious for metastatic foci. Dictated by: Berhane Oden MD 09/17/2020 11:30 Berhane Oden MD in [place] 09/17/2020 11:30
[2020-09-17 06:18] LABS: POC Glucose,Bedside 335 (70-110)
[2020-09-17 07:16] LABS: ABG Base Excess 19.1 mmol/L (-2.4-2.3); ABG HCO3 43.9 mmhg (22.0-26.0); ABG Oxygen Saturation 97 % (90-100); ABG PO2 94.4 mmhg (80-100); ABG TCO2 46.2 mmhg (23-27)
[2020-09-17 07:19] LABS: Allen's Test Acceptable; Oxygen 4L NC %; Source Right Radial
[2020-09-17 07:23] LABS: ABG PCO2 73.4 mmhg (35.0-45.0)
--- NOTE | 2020-09-17 08:15 | HMH.CNCARD ---
History of Present Illness Consult date: 09/17/20 Requesting physician: Orlando Zhang Chief complaint: Confusion, COPD exacerbation Additional Medical History:: 1. Hypertension, treated for many years A. Echo, 02/2020, 1. Mild biatrial enlargement, normal left ventricular size, mild concentric left ventricular hypertrophy, visually estimated ejection fraction 55% with no regional wall motion abnormality, grade 1 diastolic dysfunction seen without tissue Doppler evidence of raise left atrial pressure. 2. Moderately enlarged right ventricle with normal contractility. 3. Mild mitral and tricuspid regurgitation. 4. Anterior echo-free space and small pericardial effusion noted. 2. Hyperlipidemia 3. Diabetes mellitus, type II 4. Tobacco use, discontinued April 2019 A. Oxygen dependent COPD 5. Right lower lobe lobectomy secondary to cancer. No history of chemotherapy or radiation. 6. History of bladder cancer, status post scraping , followed by Dr. Anne 7. History of TIA/CVA 2018, felt secondary to paroxysmal atrial fibrillation A. Eliquis therapy 8. Paroxysmal atrial fibrillation, CHADS-VASC score of at least 5 (sex, prior CVA, HTN, DM) A. Sinus rhythm on combination of beta-bill and diltiazem therapy B. Eliquis therapy 9. Obesity with BMI 44 10. Chronic back pain secondary to degenerative disc disease History of present illness: 64-year-old white female admitted for acute exacerbation of COPD with related confusion found to be hypoxemic with improvement after treatment using BiPAP. Chest x-ray and CT of the chest revealed evidence of right pleural effusion in the same area with previous right lower lobectomy for history of cancer. Patient denies any history of chemotherapy or radiation. Lobectomy performed in April 2019. Patient thinks she may have had a thoracentesis procedure since then but she is unsure. She relates a history of TIA/CVA felt related to paroxysmal atrial fibrillation. Patient has been seeing a design engineering technician in [place] and was supposed to have a transesophageal echocardiogram this year but due to Covid restrictions this has been postponed. She is on Eliquis therapy and is currently in sinus rhythm. She has expressed her desire to switch to cardiology here at [facility] for further evaluation. [facility] History Medical History: Reports:: Arrhythmia, Atrial Fibrillation, Cancer, Cerebrovascular Accident, Diabetes Mellitus Type 2, Hyperlipidemia, Hypertension, Lung Disease (O2 dependent COPD), Kidney Stones Denies:: Diabetes Mellitus Type 1, Internal Pacemaker, MRSA, Seizures *Have you ever received a pneumonia vaccine?: No *Have you received a flu vaccine this season?: Yes Other Medical History: Reports: Blood Transfusion Reaction, Other (DVT) Laterality Cases: Bilateral: Tonsillectomy Other Surgeries: Yes: Cancer Surgery, Cholecystectomy, Tubal Ligation, Other (Right lower lobectomy). No: Pacemaker Amputation: No Fractures: No - *Social History Last grade of school completed: Some college Smoking Status: Former smoker Tobacco Type: cigarettes # Packs/Day (cigarettes): 1 Alcohol Intake: never Substance Use Type: prescription drug *Occupational Status:: disabled Housing: house Household Members: spouse *Travel in the last 8 weeks: None Family Hx:: Cancer, Coronary Artery Disease, Stroke Meds Home Medications Medication Instructions Recorded Confirmed Type diltiazem HCl 30 mg tablet 30 mg PO Q8H #90 tab 04/09/20 09/15/20 Rx diazepam 5 mg tablet 5 mg PO TIDP PRN #90 tab 05/18/20 09/15/20 Rx apixaban 5 mg (74 tabs) tablets in 5 mg PO BID #74 tab 06/15/20 09/15/20 Rx a dose pack aspirin 81 mg tablet,delayed 81 mg PO DAILY #90 tab 06/15/20 09/15/20 Rx release atorvastatin 80 mg tablet 80 mg PO HS #90 tab 06/15/20 09/15/20 Rx bisoprolol fumarate 5 mg tablet 5 mg PO DAILY #90 tab 06/15/20 09/15/20 Rx omeprazole 40 mg capsule,delayed 40 mg PO DAILY #90 cap 06/15/20 09/15/20 Rx r
[2020-09-17 08:46] LABS: Chloride 87 mmol/L (98-107); Sodium 137 mmol/L (136-145)
[2020-09-17 08:48] LABS: Blood Urea Nitrogen 17 mg/dl (7-17); Creatinine Clearance Estimated 39 mL/min (50-200); Estimated Glomerular Filt Rate 125 ml/min (>60); GFR (African American) 151 ML/MIN (>60)
[2020-09-17 08:49] LABS: Alanine Aminotransferase 46 U/L (12-78); Albumin Level 3.7 g/dl (3.5-5.0); Albumin/Globulin Ratio 1.4 (1.1-1.8); Alkaline Phosphatase 135 U/L (38-126); Aspartate Amino Transferase 36 U/L (14-36); Bilirubin,Total 0.5 mg/dl (0.2-1.3); Calcium 8.5 mg/dl (8.4-10.2); Globulin 2.6 g/dL (1.3-3.2); Glucose 297 mg/dl (74-100); Total Protein,Serum 6.3 g/dl (6.3-8.2)
[2020-09-17 08:53] LABS: Basophils % 0.1 % (0.1-2.0); Hematocrit 28.1 % (37.0-47.0); Hemoglobin 8.3 g/dL (12.2-16.2); Lymphocytes # 0.5 K/mm3 (0.7-4.5); Lymphocytes % 7.5 % (10-50); Mean Corpuscular HGB Conc 29.6 g/dL (31.8-35.4); Mean Corpuscular Hemoglobin 27.4 pg (27.0-31.2); Mean Corpuscular Volume 92.5 fl (81-99); Mean Platelet Volume 9.2 fl (7.4-10.4); Monocytes # 0.2 K/mm3 (0.1-1.0); Monocytes % 2.6 % (1.7-9.3); Neutrophils # 5.3 K/mm3 (1.8-7.8); Neutrophils % 89.7 % (37.0-80.0); Platelet Count 230 K/mm3 (142-424); Red Blood Count 3.04 M/mm3 (4.20-5.40); Red Cell Distribution Width 15.6 % (11.5-17.5)
[2020-09-17 08:54] LABS: MANUAL DIFFERENTIAL MANUAL DIFFERENTIAL (MANUAL DIFF)
[2020-09-17 09:18] LABS: Carbon Dioxide 45 mmol/L (22.0-30.0)
[2020-09-17 10:18] LABS: Hypochromasia 1+; Lymphocytes % 11 % (10-50); Monocytes % 2 % (2-9); Neutrophils % 87 % (42-76); Platelet Estimate Normal; Total Cells Counted 100
--- NOTE | 2020-09-17 10:22 | PC.NURSE ---
Did make layo at dr wilson office aware of pts c02 of 45. It is lower than previous level. Pt is currently down for cystoscopy. Dr mosley stated pt could have asa and eliquis and procedure would be local. Awaiting update at this time.
[2020-09-17 11:37] LABS: POC Glucose,Bedside 306 (70-110)
--- NOTE | 2020-09-17 12:16 | US_ITS ---
PROCEDURE: US LIVER CLINICAL INDICATION: possible lesion COMPARISON: CT CT ABDOMEN PELVIS WO/W CON from 09/17/2020 FINDINGS: Recent CT scan demonstrated 3 hypodense hepatic lesions 1 of which is stable in represents a cyst. Ultrasound was obtained these to determine if they were accessible for biopsy. Study is performed by portable technique. The lesions were not able to be a identified by ultrasound and therefore may not be biopsied with ultrasound technique. Because the liver lesions do not show up on the unenhanced image or the delayed enhanced image, CT directed biopsy can also not be used. IMPRESSION: Hepatic lesions noted on the recent CT scan are not demonstrated by ultrasound. Dictated by: Berhane Oden MD 09/17/2020 15:57 Berhane Oden MD in [place] 09/17/2020 15:57
--- NOTE | 2020-09-17 12:19 | HMH.ACPN2 ---
Internal Medicine - PN: Subj *Date: 09/17/20 *Time: 13:02 Interval history: doing better - has consults pending and has abn ct will need to do u/s for possible bx pt - pt has copd and resp failure and pt would benefit from trilogy noninvasive ventilation device - she needs volume control to treat resp failure and i do not believe she will tolerate higher pressures of bpap nor will they treat her adequately - trial of trilogy Exam Vital signs and Labs for Last 24 Hours: Temp Pulse Resp BP Pulse Ox 98.2 F 75 19 118/58 L 93 L 09/17/20 08:00 09/17/20 08:00 09/17/20 08:00 09/17/20 08:00 09/17/20 08:00 Laboratory Results - last 24 hr 09/16/20 15:33: POC Glucose 309 H* 09/16/20 20:14: POC Glucose 349 H* 09/17/20 05:16: POC Glucose 335 H* 09/17/20 07:00: Specimen Source Right radial, O2 % 4l nc, ABG pH 7.40, ABG pCO2 73.4 H, ABG pO2 94.4, ABG HCO3 43.9 H, ABG Total CO2 46.2 H, ABG O2 Saturation 97, ABG Base Excess 19.1 H, Berhane Test Acceptable 09/17/20 08:29: WBC 6.0, RBC 3.04 L, Hgb 8.3 L, Hct 28.1 L, MCV 92.5, MCH 27.4, MCHC 29.6 L, RDW 15.6, Plt Count 230, MPV 9.2, Neut % (Auto) 89.7 H, Lymph % (Auto) 7.5 L, [place] % (Auto) 2.6, Eos % (Auto) 0.0 L, Baso % (Auto) 0.1, Neut # (Auto) 5.3, Lymph # (Auto) 0.5 L, [place] # (Auto) 0.2, Eos # (Auto) 0.0, Baso # (Auto) 0.0, Total Counted 100, Neutrophils % (Manual) 87 H, Lymphocytes % (Manual) 11, Monocytes % (Manual) 2, Platelet Estimate Normal, Hypochromasia 1+ 09/17/20 08:29: Sodium 137, Potassium 4.0, Chloride 87 L, Carbon Dioxide 45 H*, Anion Gap 9.0, BUN 17 D, Creatinine 0.50 L D, Estimated Creat Clear 39, Estimated GFR 125, Est GFR ( Amer) 151 D, Glucose 297 H, Calcium 8.5, Total Bilirubin 0.5, AST 36 D, ALT 46 D, Alkaline Phosphatase 135 H, Total Protein 6.3, Albumin 3.7, Globulin 2.6, Albumin/Globulin Ratio 1.4 09/17/20 11:27: POC Glucose 306 H* I & O for Last 24 hours: Intake & Output 09/15/20 09/16/20 09/17/20 09/18/20 11:59 11:59 11:59 11:59 Intake Total 720 / 720 1740 / 1740 Output Total 1150 / 1150 2975 / 2975 Balance -430 / -430 -1235 / -1235 Weight 223 lb 2 oz 223 lb 9 oz 225 lb 8 oz Microbiology Reports for the Last 24 Hours: Microbiology 09/15/20 08:15 Blood Blood Culture - Preliminary NO GROWTH AFTER 48 HOURS 09/15/20 08:15 Blood Blood Culture - Preliminary NO GROWTH AFTER 48 HOURS - Constitutional no acute distress, obese - *Routine HEENT Exam Head: Present: normocephalic Eye: Present: EOMI, PERRL ENT: Present: mucous membranes dry - *Routine Neck Exam Absent: JVD - *Routine Respiratory Exam Present: decreased breath sounds - *Routine Cardiovascular Exam Present: RRR, murmur, S4 - *Routine Abdominal Exam Present: soft - *Routine Extremities Exam Absent: calf tenderness - *Routine Skin Exam Present: intact - *Routine Neurological Exam Present: alert, CN II-XII intact. Absent: sensory deficit - Routine Psychiatric Exam Present: normal affect Assessment and Plan (1) COPD exacerbation Status: Acute Category: Medical Code(s): J44.1 - Chronic obstructive pulmonary disease with (acute) exacerbation (2) Hypoxia Status: Acute Category: Medical Code(s): R09.02 - Hypoxemia (3) Acute respiratory failure with hypoxia and hypercapnia Status: Acute Category: Medical Code(s): J96.01 - Acute respiratory failure with hypoxia; J96.02 - Acute respiratory failure with hypercapnia (4) Altered mental status Status: Acute Qualifiers: Altered mental status type: disorientation Qualified Code(s): R41.0 - Disorientation, unspecified Category: Medical Code(s): R41.82 - Altered mental status, unspecified (5) COPD (chronic obstructive pulmonary disease) Status: Acute Qualifiers: COPD type: unspecified COPD Qualified Code(s): J44.9 - Chronic obstructive pulmonary disease, unspecified Category: Medical Code(s): J
--- NOTE | 2020-09-17 12:33 | HMH.OPNOTE ---
Date of procedure: 09/17/20 Pre-op Diagnosis:: History of bladder cancer Post-op Diagnosis:: History of bladder cancer Procedure performed:: Surveillance cystoscopy Surgeon:: Andrew Anne MD Anesthesia: local Estimated blood loss (mL): 0 Clinical Note:: Patient is a 64-year-old white female with a history of bladder cancer, lung cancer, diabetes and COPD. She was scheduled for outpatient advised cystoscopy today but was admitted to the hospital over the weekend with some nausea and breathing problems. Her white blood cell count and renal function are normal. I discussed cystoscopy under local anesthetic today and she wishes to proceed and get it over with since she is here and she states that she is feeling up to it. She states she feels much better than she did on admission. She denies any recurrent gross hematuria. Operative findings:: No evidence of recurrent bladder cancer. Operative note:: Patient taken to the cystoscopy suite after informed consent was obtained. She was placed in the frog-leg position and prepped and draped in the standard surgical fashion and 2% lidocaine placed into the urethra. After 5 minutes the flexible cystoscope introduced into the urethral meatus and passed into the bladder without difficulty. The bladder was examined in a systematic fashion. There is no evidence of recurrent bladder tumors, stones, trabeculation or cellule formation. Small reddish lesion was noted midline floor. The ureteral orifices in their normal anatomic position with clear eflux of urine. The bladder neck and urethra were within normal limits. The scope removed the patient tolerated the procedure well there are no complications. Condition: stable Disposition: same day Specimens:: None Complications:: None
--- NOTE | 2020-09-17 13:12 | SW/DCPLANNER ---
Addendum entered by [facility] 09/18/20 14:36: This patient also has a nebulizer machine at home. Addendum entered by [facility] 09/18/20 09:48: Darrian with [facility] has stated that patient CAN discharge home with Trilogy machine and [facility] will continue to follow up with patient and prior auth for insurance. Addendum entered by [facility] 09/18/20 09:08: I have relayed to Darrian at [facility] that patient tolerated Trilogy machine well and wants patient to discharge home with machine. Patient could discharge home later today. Darrian is aware and will call me back. Addendum entered by [facility] 09/17/20 15:59: I have notified Priscilla in Resp. Dept regarding Trilogy machine. Addendum entered by [facility] 09/17/20 15:41: Patient information was also faxed to [employer] out of [place] but due to [facility] delivering device I have asked Pauline with [employer] to just hold this order for now. I will follow up with [employer] and [facility] tomorrow morning. Addendum entered by [facility] 09/17/20 14:57: Andrew will [facility] has stated that he may be able to do a one time out of network for Trilogy machine for this patient. Andrew has stated that they will deliver machine to this patients room today and begin prior auth. Andrew has asked that I follow up with [facility] in the AM to give report regarding Trilogy machine. Addendum entered by [facility] 09/17/20 14:31: [facility] will NOT be able to set up Trilogy machine for this patient due to not being in network with patients insurance ([facility]). Patient information has been faxed to [facility] in [facility]. [facility] [employer]: phone [phone] fax [phone] Original Note: Patient information and order has been faxed to [facility] for a Trilogy machine. I will follow up with [facility] once patient information is reviewed. has requested this be delivered today so patient can have trial tonight.
[2020-09-17 16:37] LABS: POC Glucose,Bedside 350 (70-110)
--- NOTE | 2020-09-17 18:57 | PC.NURSE ---
Pt alert and oriented and able to make needs known. Has been on bipap and nasal cannula 2-3 L. CB in reach. Audible wheezes intermittently this shift. Continue on cont pulse ox. VSS. BS x 4. Voided well this shift. Did have cystoscpy this shift and has done wll w/o difficulty. Pulm specialist to see tomorrow. Pt aware and verbed understanding. CB in reach.
[2020-09-17 21:52] LABS: Glucose,Random 506 mg/dL (74-100)
[2020-09-18] VITALS (10 sets, daily range): BP systolic 125–146; BP diastolic 60–82; PULSE 55–83; RESP 14–20; TEMP 36.2–36.7; O2SAT 90–99; BMI 43.6
--- NOTE | 2020-09-18 05:14 | PC.NURSE ---
Pt is A&Ox4 and has ambulated to the BR and tolerated well. Pt has denied any pain /to shift and has slept very well during most of the night. Diminished lung sounds t/o. While awake, pt utilized 3LPM NC and sats 90-92%. During sleep pt used Trilogy machine with 3L that was increased to 4L d/t sats in mid 80s. Pt has denied any SOA or dyspnea. Pt has denied any BM, Senna administered this shift. Trace edema to BLE, non-pitting. VSS, call light within reach.
[2020-09-18 06:24] LABS: POC Glucose,Bedside 340 (70-110)
--- NOTE | 2020-09-18 07:52 | HMH.PNCARD ---
Subjective Date: 09/18/20 Time: 07:52 Principal diagnosis: right pleural effusion, history of PAF Interval history: 64-year-old white female in bed eating breakfast in no acute distress. Denies any chest pain, pressure or tightness. Results of her abdominal CT scan briefly reviewed with her specifically regarding concern for new liver nodules. Patient suspected something like that was going to be the case. Exam Vital signs and Labs for Last 24 Hours: Temp Pulse Resp BP Pulse Ox 97.1 F L 67 20 131/66 94 L 09/18/20 04:00 09/18/20 06:04 09/18/20 04:00 09/18/20 04:00 09/18/20 06:04 Laboratory Results - last 24 hr 09/17/20 08:29: WBC 6.0, RBC 3.04 L, Hgb 8.3 L, Hct 28.1 L, MCV 92.5, MCH 27.4, MCHC 29.6 L, RDW 15.6, Plt Count 230, MPV 9.2, Neut % (Auto) 89.7 H, Lymph % (Auto) 7.5 L, [place] % (Auto) 2.6, Eos % (Auto) 0.0 L, Baso % (Auto) 0.1, Neut # (Auto) 5.3, Lymph # (Auto) 0.5 L, [place] # (Auto) 0.2, Eos # (Auto) 0.0, Baso # (Auto) 0.0, Total Counted 100, Neutrophils % (Manual) 87 H, Lymphocytes % (Manual) 11, Monocytes % (Manual) 2, Platelet Estimate Normal, Hypochromasia 1+ 09/17/20 08:29: Sodium 137, Potassium 4.0, Chloride 87 L, Carbon Dioxide 45 H*, Anion Gap 9.0, BUN 17 D, Creatinine 0.50 L D, Estimated Creat Clear 39, Estimated GFR 125, Est GFR ( Amer) 151 D, Glucose 297 H, Calcium 8.5, Total Bilirubin 0.5, AST 36 D, ALT 46 D, Alkaline Phosphatase 135 H, Total Protein 6.3, Albumin 3.7, Globulin 2.6, Albumin/Globulin Ratio 1.4 09/17/20 11:27: POC Glucose 306 H* 09/17/20 16:18: POC Glucose 350 H* 09/17/20 21:21: Random Glucose 506 H* 09/18/20 06:12: POC Glucose 340 H* I & O for Last 24 hours: Intake & Output 09/15/20 09/16/20 09/17/20 09/18/20 11:59 11:59 11:59 11:59 Intake Total 720 / 720 1740 / 1740 810 / 810 Output Total 1150 / 1150 2975 / 2975 1999 Balance -430 / -430 -1235 / -1235 -1190 / -1190 Weight 223 lb 2 oz 223 lb 9 oz 225 lb 8 oz 222 lb 4 oz Microbiology Reports for the Last 24 Hours: Microbiology 09/15/20 08:15 Blood Blood Culture - Preliminary NO GROWTH AFTER 48 HOURS 09/15/20 08:15 Blood Blood Culture - Preliminary NO GROWTH AFTER 48 HOURS - Constitutional no acute distress - *Routine Respiratory Exam Present: decreased breath sounds Comments: End expiratory wheezing noted, similar to yesterday. - *Routine Cardiovascular Exam Present: RRR - *Routine Neurological Exam Present: alert, oriented X3 Progress Note: A&P (1) COPD exacerbation Status: Acute (2) Hypoxia Status: Acute (3) Acute respiratory failure with hypoxia and hypercapnia Status: Acute (4) Altered mental status Status: Acute (5) COPD (chronic obstructive pulmonary disease) Status: Acute (6) Erosive osteoarthritis of multiple sites Status: Acute (7) History of CVA (cerebrovascular accident) Status: Chronic (8) History of lung cancer Status: Chronic (9) Hyperglycemia due to diabetes mellitus Status: Chronic (10) Hypertension Status: Chronic (11) Lumbar disc disease with radiculopathy Status: Chronic (12) Morbid obesity Status: Chronic (13) Pneumonia Status: Acute (14) Weakness Status: Acute (15) Anemia Status: Acute Assessment and Plan for All Diagnoses:: 1. COPD exacerbation with acute hypoxemia and confusion, resolved, defer to pulmonary and PCP 2. History of paroxysmal atrial fibrillation with elevated CHADS-VASC score, maintaining sinus rhythm on bisoprolol 5 mg twice daily. Continue Eliquis therapy. 3. HTN, controlled 4. History of lung cancer, s/p surgery, 2019. Now with new hepatic nodules. Workup per PCP. 5. Anemia, stable around 8.0-8.3. Consider transfusing to keep Hgb > 10 due to COPD and PAF. 6. DM, per PCP. Nothing further to add. Please call if needed. Follow up in our office in 2 wks after discharge.
[2020-09-18 11:00] LABS: POC Glucose,Bedside 442 (70-110)
--- NOTE | 2020-09-18 13:02 | HMH.PULMCON ---
*Admission Date: 09/16/20 *Reason for consult:: COPD exacerbation acute on chronic hypoxic respiratory failure *History of present illness: 64-year-old previous smoker more than [id number] smoking history last smoked in April 2019, lung cancer status post right lower lobectomy in April 2019, patient did not receive any chemo or radiation at that point unknown histology or stage of cancer at this point of time, carries a previous diagnosis of COPD on 4 L nasal cannula continuous long-term oxygen therapy at home, noncompliant with her inhalers, only using albuterol nebulizations every 12 hours presented to the hospital with worsening hypoxic and hypercarbic respiratory failure. Patient also found to have a right sided pleural effusion [facility] History Medical History: Reports:: Arrhythmia, Atrial Fibrillation, Cancer, Cerebrovascular Accident, Diabetes Mellitus Type 2, Hyperlipidemia, Hypertension, Lung Disease (O2 dependent COPD), Kidney Stones Denies:: Diabetes Mellitus Type 1, Internal Pacemaker, MRSA, Seizures *Have you ever received a pneumonia vaccine?: No *Have you received a flu vaccine this season?: Yes Other Medical History: Reports: Blood Transfusion Reaction, Other (DVT) Laterality Cases: Bilateral: Tonsillectomy Other Surgeries: Yes: Cancer Surgery, Cholecystectomy, Tubal Ligation, Other (Right lower lobectomy). No: Pacemaker Amputation: No Fractures: No - *Social History Last grade of school completed: Some college Smoking Status: Former smoker Tobacco Type: cigarettes # Packs/Day (cigarettes): 1 Alcohol Intake: never Substance Use Type: prescription drug *Occupational Status:: disabled Housing: house Household Members: spouse *Travel in the last 8 weeks: None Family Hx:: Cancer, Coronary Artery Disease, Stroke ROS - Cons Reports anorexia, Reports body ache(s) - Card Reports shortness of breath, Reports shortness of breath with activity, Reports leg swelling, Denies chest pain with activity - Resp Respiratory: Yes chest congestion, Yes cough, Yes non-productive cough, Yes dyspnea, Yes dyspnea on exertion - GI Gastrointestingal: Reports: system reviewed and no additional complaints, except as docu - [place] Musculoskeletal: Reports system reviewed and no additional complaints, except as docu Meds Home Medications Medication Instructions Recorded Confirmed Type diltiazem HCl 30 mg tablet 30 mg PO Q8H #90 tab 04/09/20 09/15/20 Rx diazepam 5 mg tablet 5 mg PO TIDP PRN #90 tab 05/18/20 09/15/20 Rx apixaban 5 mg (74 tabs) tablets in 5 mg PO BID #74 tab 06/15/20 09/15/20 Rx a dose pack aspirin 81 mg tablet,delayed 81 mg PO DAILY #90 tab 06/15/20 09/15/20 Rx release atorvastatin 80 mg tablet 80 mg PO HS #90 tab 06/15/20 09/15/20 Rx bisoprolol fumarate 5 mg tablet 5 mg PO DAILY #90 tab 06/15/20 09/15/20 Rx omeprazole 40 mg capsule,delayed 40 mg PO DAILY #90 cap 06/15/20 09/15/20 Rx release Insulin Glargine,Hum.rec.anlog 20 unit SQ DAILY 06/16/20 09/15/20 History [Lantus Solostar U-100 Insulin] ipratropium 0.5 mg-albuterol 3 mg 3 ml INHALATION QIDP PRN #3 ml 06/25/20 09/16/20 Rx (2.5 mg base)/3 mL nebulization soln Fluoxetine HCl 20 mg PO DAILY 09/16/20 09/16/20 History Torsemide [Demadex] 20 mg PO BIDP PRN 09/16/20 09/16/20 History Allergies Allergy/AdvReac Type Severity Reaction Status Date / Time diclofenac Allergy Unknown Verified 07/23/20 08:25 allergy reaction Exam - Constitutional Constitutional:: no acute distress, comfortable - [facility] Exam [facility]: normocephalic, atraumatic - Eye Exam Eyes:: normal appearance both eyes and related structures - Neck Exam Neck:: normal visual inspection, thyroid normal, no lymphadenopathy - Respiratory Exam Respiratory:: able to speak in complete sentences Comments: Bilateral diffuse expiratory wheeze noted along with decreased breath sounds - Cardiovascular Exam Cardiac:: S1, S2 - GI Exam GI:: soft, no hepatosplenomeg
--- NOTE | 2020-09-18 13:58 | HMH.DCSUM ---
General - General Admission date:: 09/15/20 Discharge date: 09/18/20 HPI HPI: 64 year-old female with a history of lung cancer status post lobectomy, COPD on home oxygen who presents the emergency department today with shortness of breath. Patient states she has been feeling weak over the past several days and was having shortness of breath this morning. She fell out of bed but did not hit her head. No significant injury. Called EMS. EMS placed her on 4 L of oxygen. Gave her a breathing treatment which improved her symptoms. Patient also reports she feels like she had a fever over the past several days. No other complaints. Patient is a 64-year-old female who presents to the emergency department today with subjective fever and shortness of breath. Differential includes bacterial pneumonia, viral pneumonia including COVID-19, COPD exacerbation. Patient was off oxygen on arrival to the emergency department and hypoxic. Placed on 6 L which improved her oxygen saturation. Mentating well throughout. Physical exam notable for bilateral wheezing. Ordered albuterol, steroids, ceftriaxone, azithromycin. Patient's oxygen requirement is increased from her baseline. She will need admission to the hospital. Ordered labs and x-ray. X-ray showed possible pneumonia. Labs notable for respiratory acidosis. Admit Above per ER document Patient is known to me from the office. She has a longstanding history of COPD. She is status post a right lower lobe lobectomy for a lung neoplasm. Subsequent CT of the chest showed no tumor recurrence. She also has a history of a bladder carcinoma, and is followed by Dr. Anne. He has a propensity for CO2 retention and hypoxia, has a previous admission per Dr. Ayon's service. Treatment at that point involved BiPAP. Initial encounter with her today she was placed on BiPAP with a setting of 20/10, rate of 20, 45% O2. Gases came back with a pH of 7.31, PCO2 of 83, PO2 of 78 and 95% saturation. Represents some improvement from her admission. Patient was noted to be somnolent in the emergency room. She is slightly less somnolent now. Will open her eyes and answer questions. Hospital Course Hospital Course: 64 year-old female with a history of lung cancer status post lobectomy, COPD on home oxygen who presents the emergency department today with shortness of breath. Patient states she has been feeling weak over the past several days and was having shortness of breath this morning. She fell out of bed but did not hit her head. No significant injury. Called EMS. EMS placed her on 4 L of oxygen. Gave her a breathing treatment which improved her symptoms. Patient also reports she feels like she had a fever over the past several days. No other complaints. Not using INH's at home D/T expense 09/15/20 CXR: FINDINGS: This is a good inspiration. There is chronic pleural parenchymal scarring at the right base and right costophrenic angle. There is a surgical clip right infrahilar region. The right upper lung field and left lung field is clear. There is borderline cardiomegaly but there is no pulmonary congestion. IMPRESSION: Chronic pleural parenchymal changes right base likely secondary to previous right lower lobectomy, no definite acute chest pathology noted Dictated by: Nathaniel, 09/15/20 Chest CTA: FINDINGS: HEART AND MEDIASTINAL STRUCTURES: There is mild cardiomegaly with left ventricular prominence. There is mild aortic tortuosity. There is excellent vascular opacification and there is no CT evidence of pulmonary emboli there is no evidence of aortic dissection. LUNGS AND PLEURAL SPACES: There is a moderate size right pleural effusion layering on the right lung and extending up to the lung apex. There is some pleural fluid extending into the major fissure as well. There is a small left pleural effusion with minimal atelectasis at the left posterior gutter. BONY STRUC
--- NOTE | 2020-09-18 14:30 | PC.NURSE ---
Sputum sample received and tubed to lab @ [id number].
[2020-09-18 16:29] LABS: POC Glucose,Bedside 409 (70-110)
[2020-09-19 08:29] LABS: POC Glucose,Bedside 504 (70-110)
[2020-09-19 08:29] LABS: POC Glucose,Bedside 521 (70-110)
== END 2020-09-18 18:03 | disposition home or self-care (01) | DRG 190 ==
LOC: ER 08:24 → 2ND 09:58
PROVIDERS: Urology; Admitting Provider Internal Medicine Adolescent Medicine; Emergency Provider Emergency Medicine; PCP Family Medicine; Visit Provider Family Medicine
PROC: 0TJB8ZZ Inspection of Bladder, Via Natural or Artificial Opening Endoscopic (ICD-10-PCS; principal; 2020-09-17 09:30)
DX: J44.1 Chronic obstructive pulmonary disease with (acute) exacerbation (principal); J96.21 Acute and chronic respiratory failure with hypoxia; Z68.41 Body mass index [BMI] 40.0-44.9, adult; Z90.2 Acquired absence of lung [part of]; I48.0 Paroxysmal atrial fibrillation; Z99.81 Dependence on supplemental oxygen; M15.4 Erosive (osteo)arthritis; M51.16 Intervertebral disc disorders with radiculopathy, lumbar region; E11.65 Type 2 diabetes mellitus with hyperglycemia; E66.9 Obesity, unspecified; I10 Essential (primary) hypertension; Z79.01 Long term (current) use of anticoagulants; Z85.51 Personal history of malignant neoplasm of bladder; Z85.118 Personal history of other malignant neoplasm of bronchus and lung
CPT/HCPCS: 52000; 70450; 71045; 71275; 74178; 76705; 80048; 80053; 81001; 82803; 82947; 82962; 83605; 84484; 85007; 85025; 86328; 86738; 87040; 87070; 87205; 93005; 94640; 94660; 96365; 96375; 99284; J0456; Q9967

== ENCOUNTER → 2020-10-03 11:15 | Outpatient (CLI) | payer OTHER, SELFPAY ==
[2020-10-03 11:39] LABS: Basophils % 0.4 % (0.1-2.0); Eosinophils # 0.2 K/mm3 (0.0-0.4); Eosinophils % 2.4 % (0.1-12.0); Hematocrit 31.7 % (37.0-47.0); Hemoglobin 9.6 g/dL (12.2-16.2); Lymphocytes # 1.1 K/mm3 (0.7-4.5); Lymphocytes % 17.4 % (10-50); Mean Corpuscular HGB Conc 30.1 g/dL (31.8-35.4); Mean Corpuscular Volume 89.6 fl (81-99); Mean Platelet Volume 9.4 fl (7.4-10.4); Monocytes # 0.2 K/mm3 (0.1-1.0); Neutrophils # 4.9 K/mm3 (1.8-7.8); Neutrophils % 76.8 % (37.0-80.0); Platelet Count 190 K/mm3 (142-424); Red Blood Count 3.54 M/mm3 (4.20-5.40); Red Cell Distribution Width 15.7 % (11.5-17.5); White Blood Count 6.3 K/mm3 (4.8-10.8)
[2020-10-03 12:15] LABS: Alanine Aminotransferase 23 U/L (12-78); Albumin Level 3.8 g/dl (3.5-5.0); Alkaline Phosphatase 154 U/L (38-126); Anion Gap 11.8 mEq/L (5-15); Aspartate Amino Transferase 22 U/L (14-36); Bilirubin,Direct 0.2 mg/dl (0.0-0.4); Bilirubin,Indirect 0.3 mg/dL (0.0-0.9); Bilirubin,Total 0.5 mg/dl (0.2-1.3); Bilirubin,Unconjugated 0.3 mg/dL (0.0-1.1); Blood Urea Nitrogen 12 mg/dl (7-17); Calcium 8.4 mg/dl (8.4-10.2); Carbon Dioxide 37 mmol/L (22.0-30.0); Chloride 89 mmol/L (98-107); Chol/HDL Ratio 3.3 (1-3.5); Cholesterol 143 mg/dl (140-200); Estimated Glomerular Filt Rate 101 ml/min (>60); GFR (African American) 122 ML/MIN (>60); HDL Cholesterol 44 mg/dl (40-60); Potassium 3.8 mmoL/L (3.5-5.1); Sodium 134 mmol/L (136-145); Total Protein,Serum 6.2 g/dl (6.3-8.2); Triglycerides 262 mg/dl (30-150); VLDL Cholesterol 52 mg/dL (0-40)
[2020-10-03 12:18] LABS: Glucose 402 mg/dl (74-100)
[2020-10-03 12:26] LABS: Direct LDL Cholesterol 74.81 mg/dL (100-129)
[2020-10-03 12:27] LABS: NT Pro Brain Natriuretic Pep. 109 pg/mL (0-125)
[2020-10-03 17:43] LABS: Hemoglobin A1C 11.1 % (4.0-6.0)
== END ==
PROVIDERS: Family Medicine; Visit Provider Urology
DX: R06.00 Dyspnea, unspecified (principal); I50.9 Heart failure, unspecified; I63.9 Cerebral infarction, unspecified; I82.412 Acute embolism and thrombosis of left femoral vein; J44.9 Chronic obstructive pulmonary disease, unspecified; E66.01 Morbid (severe) obesity due to excess calories; E11.9 Type 2 diabetes mellitus without complications; Z72.0 Tobacco use; Z79.4 Long term (current) use of insulin
CPT/HCPCS: 36415; 80048; 80061; 80076; 83036; 83880; 85025

== ENCOUNTER → 2020-10-15 11:12 | Outpatient (CLI) | payer OTHER, SELFPAY ==
--- NOTE | 2020-10-15 13:53 | XR_ITS ---
PROCEDURE: XR CHEST 2V CLINICAL HISTORY: sob Shortness of breath COMPARISON: CR XR CHEST PORTABLE from 04/12/2020 CR XR CHEST PORTABLE from 06/16/[address] ANGIO CHEST from 09/15/2020 CR XR CHEST PORTABLE from 09/15/2020 FINDINGS: The cardiomediastinal silhouette and pulmonary vascularity are within normal limits. Surgical clips are present in the right infrahilar region. There is a small right pleural effusion. The right pleural effusion has decreased in size compared to 09/15/2020. The left lung is clear. No acute bony abnormalities. IMPRESSION: Small right pleural effusion Dictated by: Berhane Oden MD 10/15/2020 14:22 Berhane Oden MD in OV 10/15/2020 14:22
[2020-10-15 16:01] VITALS: PULSE 78; PULSE 83
== END ==
PROVIDERS: PCP Family Medicine; Visit Provider Internal Medicine Pulmonary Disease
DX: R06.00 Dyspnea, unspecified (principal); J44.9 Chronic obstructive pulmonary disease, unspecified
CPT/HCPCS: 71046; 94060; 94618; 94640; 94727; 94729

== ENCOUNTER → 2020-10-16 13:36 | Outpatient (CLI) | payer OTHER, SELFPAY ==
--- NOTE | 2020-10-16 13:37 | CA_ITS ---
APPROVED REPORT EXAM: Comprehensive 2D, Doppler, and color-flow Echocardiogram Locks Inspector: Gypsy Blandon [facility], RVS Ht: 5 ft 4 in Wt: 230lbs BSA: 2.08 BP: 84/66 mmHg Indications: COPD, soa, LV Disatolic dyfunction Echo Enhancing Agent Comments: Technically difficult exam due to large body habitus and lung impedence 2D Dimensions LVDs 3.60 cm LVOT 1.99 cm (M/F) 1.5-2.5 M-Mode Dimensions LA Diam 4.38 cm (1.9-4.0) LVDd 4.03 cm (3.5-5.7) Ao Diam 3.19 cm (2.0-3.7) IVSd 1.04 cm (0.6-1.1) PWd 1.18 cm (0.6-1.1) EPSs 0.61 cm EDV (Teich) 71.30 mL LV Diastology E Decel Time 180.00 (160-240 msec) E/A Ratio 0.93 MED E' 6.80 (< 7 cm/sec) MED A' 9.60 cm/s E'/MED E' Ratio 17.07 (>14) LAT E' 9.50 (<10 cm/sec) LAT A' 14.20 cm/s E/LAT E' Ratio 12.22 (>14) Aortic Valve AO Peak GR. 10.80 mmHg Mitral Valve MV A Velocity 124.00 (40-130 cm/s) E/A Ratio 0.93 MV Decel. Time 180.00 (160-240 ms) Tricuspid Valve TR P. Velocity 217.00 cm/s RAP Estimate 10.00 mmHg RVSP 28.90 mmHg Left Ventricle Left atrium is mildly enlarged, left ventricle is normal size, mild concentric left ventricular hypertrophy, visually estimated ejection fraction 55% with no regional wall motion abnormality, grade 1 diastolic dysfunction seen with tissue Doppler evidence of raise left atrial pressure. Right Ventricle Right atrium and right ventricle are normal size and contractility. Aortic Valve Aortic valve is minimally thickened and fibrosed, there is no aortic stenosis or aortic insufficiency. Mitral Valve Mitral valve is grossly normal, there is mild mitral regurgitation. Tricuspid Valve Tricuspid valve is grossly normal, there is mild tricuspid regurgitation, tricuspid regurgitation jet velocity is inadequate for calculation of the right ventricular systolic pressure. Pulmonic Valve Pulmonic valve is poorly visualized. Great Vessels Aortic root is normal size. Pericardium No significant pericardial effusion noted. Conclusion 1. Mildly enlarged left atrium, normal left ventricular size, mild concentric left ventricular hypertrophy, visually estimated ejection fraction 55% with no regional wall motion abnormality, there is abnormal septal motion, grade 1 diastolic dysfunction seen with tissue Doppler evidence of raise left atrial pressure. 2. Thickened and calcified aortic valve without aortic stenosis or aortic insufficiency. 3. Mild mitral and tricuspid regurgitation. 4. No significant pericardial effusion noted. Electronically signed by : Matthew Hendricks, 10/17/2020 06:16:21
== END ==
PROVIDERS: PCP Family Medicine; Visit Provider Urology
DX: R06.00 Dyspnea, unspecified (principal); I50.9 Heart failure, unspecified; I63.9 Cerebral infarction, unspecified; I82.412 Acute embolism and thrombosis of left femoral vein; J44.9 Chronic obstructive pulmonary disease, unspecified; E66.01 Morbid (severe) obesity due to excess calories; Z72.0 Tobacco use
CPT/HCPCS: 93306

== ENCOUNTER → 2020-12-14 16:34 | Outpatient (CLI) | payer OTHER, SELFPAY ==
[2020-12-14 17:37] LABS: Coronavirus 19 IgG Antibody Negative (Negative); Coronavirus 19 IgM Antibody Negative (Negative)
== END ==
PROVIDERS: Visit Provider Urology
DX: Z01.818 Encounter for other preprocedural examination (principal); Z20.822 Contact with and (suspected) exposure to COVID-19; C67.9 Malignant neoplasm of bladder, unspecified
CPT/HCPCS: 86328

== ENCOUNTER → 2020-12-26 18:11 | Outpatient (CLI) | payer OTHER, SELFPAY ==
[2020-12-28 14:01] LABS: C-Peptide 5.7 ng/mL (1.1-4.4)
== END ==
PROVIDERS: Visit Provider Nurse Practitioner Family
DX: E11.9 Type 2 diabetes mellitus without complications (principal); Z79.4 Long term (current) use of insulin
CPT/HCPCS: 84681

== ENCOUNTER → 2021-01-02 11:41 | Outpatient (CLI) | payer OTHER, SELFPAY ==
[2021-01-02 13:26] LABS: Coronavirus 19 IgG Antibody Negative (Negative); Coronavirus 19 IgM Antibody Negative (Negative)
== END ==
PROVIDERS: Visit Provider Surgery
DX: Z01.812 Encounter for preprocedural laboratory examination (principal); Z20.822 Contact with and (suspected) exposure to COVID-19; L81.9 Disorder of pigmentation, unspecified
CPT/HCPCS: 36415; 86328

== ENCOUNTER 2021-01-04 06:16 | Day surgery (SDC) | payer OTHER, SELFPAY ==
[2020-12-31 10:15] VITALS: BMI 44.9
[2021-01-04 06:48] VITALS: BP 156/80; PULSE 67; RESP 20; TEMP 36.3; O2SAT 100
[2021-01-04 07:06] LABS: POC Glucose,Bedside 294 (70-110)
--- NOTE | 2021-01-04 07:45 | HMH.OPNOTE ---
Date of procedure: 01/04/21 Pre-op Diagnosis:: Abdominal wall skin lesions 1) 5mm pedunculated epigastric skin lesion 2) 1.25 cm pedunculated left upper abdominal wall skin lesion 3) 7 mm pigmented skin lesion along right upper abdomen Post-op Diagnosis:: Excision of abdominal wall skin lesions 1) 5mm pedunculated epigastric skin lesion 2) 1.25 cm pedunculated left upper abdominal wall skin lesion 3) 7 mm pigmented skin lesion along right upper abdomen Procedure performed:: Excision of abdominal wall skin lesions 1) 5mm pedunculated epigastric skin lesion 2) 1.25 cm pedunculated left upper abdominal wall skin lesion 3) 7 mm pigmented skin lesion along right upper abdomen Surgeon:: Catrachito Martin MD Anesthesia: local Estimated blood loss (mL): 1 Operative findings:: 1) 5mm pedunculated epigastric skin lesion excised at its base utilizing electrocautery 2) 1.25 cm pedunculated left upper abdominal wall skin lesion excised at its base utilizing electrocautery 3) 7 mm pigmented skin lesion along right upper abdomen excised in toto with 1 mm margin Operative note:: After informed consent was obtained the patient was taken to the procedure room. She was maintained in a supine position. Her abdominal wall was prepped and draped in a sterile fashion. After infiltration with local anesthetic the left upper abdominal wall/flank skin lesion was excised at its base with electrocautery. The specimen was passed off for pathologic evaluation. In a similar manner, the pedunculated skin lesion in the epigastric region was excised and passed off for pathologic evaluation. The 7 mm pigmented lesion in the right upper quadrant was excised sharply with a 1 mm margin. An ellipse was taken around the lesion and the deeper subcutaneous tissue was excised sharply with scalpel. Electrocautery was utilized to achieve hemostasis. The lesion was passed off for pathologic evaluation. Skin was reapproximated with interrupted 5-0 nylon. Dressings were applied and the patient was discharged in good condition. Condition: stable Disposition: no change Specimens:: 1) 5mm pedunculated epigastric skin lesion 2) 1.25 cm pedunculated left upper abdominal wall skin lesion 3) 7 mm pigmented skin lesion along right upper abdomen Complications:: No immediate
[2021-01-04 07:47] VITALS: BP 114/52; PULSE 66; RESP 18; TEMP 36.7; O2SAT 100
[2021-01-04 08:02] VITALS: BP 129/84; PULSE 66; RESP 18; O2SAT 100
[2021-01-04 08:17] VITALS: BP 102/61; PULSE 64; RESP 18; TEMP 36.7; O2SAT 100
== END 2021-01-04 08:17 | disposition home or self-care (01) ==
LOC: OUTP 06:17
PROVIDERS: PCP Family Medicine; Visit Provider Surgery
PROC: (CPT 11106; principal; 2021-01-04 07:30)
DX: D18.01 Hemangioma of skin and subcutaneous tissue (principal); D22.5 Melanocytic nevi of trunk; L82.1 Other seborrheic keratosis; E11.9 Type 2 diabetes mellitus without complications; I10 Essential (primary) hypertension; E78.5 Hyperlipidemia, unspecified; I48.91 Unspecified atrial fibrillation; I49.9 Cardiac arrhythmia, unspecified; Z86.73 Personal history of transient ischemic attack (TIA), and cerebral infarction without residual deficits; Z79.82 Long term (current) use of aspirin; Z79.4 Long term (current) use of insulin; Z79.899 Other long term (current) drug therapy
CPT/HCPCS: 11106; 11107 ×2; 82962

== ENCOUNTER → 2021-01-11 17:01 | Outpatient (CLI) | payer OTHER, SELFPAY | PROVIDERS: Visit Provider Family Medicine | DX: R82.90 Unspecified abnormal findings in urine (principal) | CPT/HCPCS: 87086 ==

== ENCOUNTER → 2021-01-15 12:37 | Outpatient (CLI) | payer OTHER, SELFPAY ==
[2021-01-15 14:43] LABS: Chloride 94 mmol/L (98-107); Potassium 4.6 mmoL/L (3.5-5.1); Sodium 134 mmol/L (136-145)
[2021-01-15 14:46] LABS: Anion Gap 15.6 mEq/L (5-15); Blood Urea Nitrogen 16 mg/dl (7-17); Calcium 8.8 mg/dl (8.4-10.2); Carbon Dioxide 29 mmol/L (22.0-30.0); Estimated Glomerular Filt Rate 84 ml/min (>60); GFR (African American) 102 ML/MIN (>60); Glucose 343 mg/dl (74-100)
== END ==
LOC: LAB 12:37
PROVIDERS: Visit Provider Internal Medicine Cardiovascular Disease
DX: R06.00 Dyspnea, unspecified (principal); I50.9 Heart failure, unspecified; I63.9 Cerebral infarction, unspecified; I82.419 Acute embolism and thrombosis of unspecified femoral vein; J44.9 Chronic obstructive pulmonary disease, unspecified; E66.9 Obesity, unspecified; Z72.0 Tobacco use
CPT/HCPCS: 36415; 80048

== ENCOUNTER → 2021-01-17 15:31 | Outpatient (CLI) | payer OTHER, SELFPAY ==
--- NOTE | 2021-01-17 15:36 | XR_ITS ---
PROCEDURE: XR CHEST 2V CLINICAL HISTORY: Effusion Pleural effusion COMPARISON: CR XR CHEST PORTABLE from 06/16/[address] ANGIO CHEST from 09/15/2020 CR XR CHEST PORTABLE from 09/15/2020 CR XR CHEST 2V from 10/15/2020 FINDINGS: The cardiomediastinal silhouette and pulmonary vascularity are within normal limits. There is a surgical clip in the right perihilar region. Chronic volume loss noted right middle lobe with small right pleural effusion not significantly changed. There is patchy density in the lingula suggesting an area of atelectasis or infiltrate. No acute bony abnormalities. IMPRESSION: Chronic changes with chronic volume loss of the right middle lobe with small right effusion. Atelectasis or infiltrate within the lingula Dictated by: Berhane Oden MD 01/17/2021 16:05 Berhane Oden MD in [facility] 01/17/2021 16:05
== END ==
LOC: RAD 15:32
PROVIDERS: PCP Family Medicine; Visit Provider Internal Medicine Pulmonary Disease
DX: J44.9 Chronic obstructive pulmonary disease, unspecified (principal); J90 Pleural effusion, not elsewhere classified
CPT/HCPCS: 71046

== ENCOUNTER → 2021-02-14 11:01 | Outpatient (CLI) | payer OTHER, SELFPAY ==
[2021-02-14 12:01] LABS: Basophils % 0.4 % (0.1-2.0); Eosinophils # 0.1 K/mm3 (0.0-0.4); Eosinophils % 1.9 % (0.1-12.0); Hematocrit 31.6 % (37.0-47.0); Hemoglobin 9.5 g/dL (12.2-16.2); Lymphocytes # 1.4 K/mm3 (0.7-4.5); Lymphocytes % 18.3 % (10-50); Mean Corpuscular HGB Conc 29.9 g/dL (31.8-35.4); Mean Corpuscular Hemoglobin 24.4 pg (27.0-31.2); Mean Corpuscular Volume 81.4 fl (81-99); Mean Platelet Volume 8.4 fl (7.4-10.4); Monocytes # 0.3 K/mm3 (0.1-1.0); Monocytes % 3.6 % (1.7-9.3); Neutrophils # 5.7 K/mm3 (1.8-7.8); Neutrophils % 75.8 % (37.0-80.0); Platelet Count 251 K/mm3 (142-424); Red Blood Count 3.88 M/mm3 (4.20-5.40); Red Cell Distribution Width 17.4 % (11.5-17.5); White Blood Count 7.5 K/mm3 (4.8-10.8)
[2021-02-14 12:17] LABS: Creatinine,Urine Random 28 mg/dL (Not Estab.); Microalbumin < 6.000 mg/L (0-16.7)
[2021-02-14 12:33] LABS: Alanine Aminotransferase 26 U/L (12-78); Albumin Level 4.1 g/dl (3.5-5.0); Albumin/Globulin Ratio 1.7 (1.1-1.8); Alkaline Phosphatase 154 U/L (38-126); Anion Gap 12.3 mEq/L (5-15); Aspartate Amino Transferase 23 U/L (14-36); Bilirubin,Total 0.6 mg/dl (0.2-1.3); Blood Urea Nitrogen 15 mg/dl (7-17); Calcium 8.8 mg/dl (8.4-10.2); Carbon Dioxide 33 mmol/L (22.0-30.0); Chloride 97 mmol/L (98-107); Cholesterol 120 mg/dl (140-200); Estimated Glomerular Filt Rate 84 ml/min (>60); GFR (African American) 102 ML/MIN (>60); Globulin 2.4 g/dL (1.3-3.2); Glucose 245 mg/dl (74-100); HDL Cholesterol 40 mg/dl (40-60); Potassium 4.3 mmoL/L (3.5-5.1); Sodium 138 mmol/L (136-145); Total Protein,Serum 6.5 g/dl (6.3-8.2); Triglycerides 98 mg/dl (30-150); VLDL Cholesterol 20 mg/dL (0-40)
[2021-02-14 12:44] LABS: Direct LDL Cholesterol 61.35 mg/dL (100-129)
[2021-02-14 12:59] LABS: 25-OH Vitamin D, Total < 12.8 ng/mL (30-100)
[2021-02-14 13:04] LABS: Thyroid Stimulating Hormone 1.07 uIU/mL (0.465-4.68)
[2021-02-14 13:22] LABS: Hemoglobin A1C 10.4 % (4.0-6.0)
[2021-02-17 10:35] LABS: C-Peptide 4.7 ng/mL (1.1-4.4)
== END ==
PROVIDERS: Nurse Practitioner Family; Visit Provider Internal Medicine Cardiovascular Disease
DX: E11.65 Type 2 diabetes mellitus with hyperglycemia (principal); I10 Essential (primary) hypertension; E66.9 Obesity, unspecified; E55.9 Vitamin D deficiency, unspecified; Z68.42 Body mass index [BMI] 45.0-49.9, adult; Z79.4 Long term (current) use of insulin; Z87.891 Personal history of nicotine dependence
CPT/HCPCS: 36415; 80053; 80061; 82043; 82306; 82570; 83036; 84436; 84443; 84681; 85025

== ENCOUNTER 2021-04-12 15:41 | Observation (INO) | payer OTHER, SELFPAY ==
[2021-04-12 15:42] VITALS: BP 157/53; PULSE 96; RESP 24; TEMP 36.7; O2SAT 92; BMI 46.8
--- NOTE | 2021-04-12 16:09 | CT_ITS ---
PROCEDURE INFORMATION: Exam: CT Abdomen And Pelvis With Contrast Exam date and time: 04/12/2021 4:09 PM Age: 65 years old Clinical indication: Abdominal pain; Other: Diffuse; Additional info: Diffuse pain. History of lung cancer. TECHNIQUE: Imaging protocol: Computed tomography of the abdomen and pelvis with contrast. Radiation optimization: All CT scans at this facility use at least one of these dose optimization techniques: automated exposure control; mA and/or kV adjustment per patient size (includes targeted exams where dose is matched to clinical indication); or iterative reconstruction. Contrast material: ISOVUE; Contrast volume: 70 ml; Contrast route: IV; COMPARISON: CT BONY PELVIS 04/12/2021 4:39 PM FINDINGS: Lungs: Calcified right pulmonary granulomas. No focal consolidation. Pleural spaces: A small low-density layering right pleural effusion, which is either chronic or recurrent compared with 09/17/2020. No hyperdense fluid as visualized, to suggest hemothorax. Liver: There are multiple hypoattenuating liver lesions which are chronic compared with 09/17/2020. Some lesions appear stable and others likely smaller compared with the previous exam . A possible new 8 mm hypoattenuating lesion in posteroinferior right lobe of liver section series 3, image 39, not seen with confidence in this region on 09/17/2020. Upper normal liver size. Gallbladder and bile ducts: Cholecystectomy clips. Biliary tree is within normal limits. No calcified stones. Pancreas: Mild fatty atrophic changes in the pancreas. No ductal dilatation. No mass. Spleen: Mild splenomegaly 14.3 cm series 3, image 28. No splenic nodules. Adrenal glands: A chronic 2.8 cm right adrenal nodule, previously diagnosed as benign adenoma on 09/17/2020 with very low-density on precontrast scans. Left adrenal is unremarkable. Kidneys and ureters: Tiny bilateral nonobstructing renal calculi. No hydronephrosis, hydroureter, or obstructing calcified ureteral stones. A chronic left upper; pole renal cortical cystic lesion, enhanced HU density approximate 7, measuring 3.5 cm, consistent with the simple Bosniak 1 cyst. Stomach and bowel: There is no evidence of intestinal perforation or obstruction. Gastric surgical changes. No acute findings in the stomach. Appendix: No findings of appendicitis. Intraperitoneal space: There is no free intraperitoneal air. There is no significant free intraperitoneal fluid. Vasculature: There is no aortic aneurysm. The vasculature demonstrates scattered mild atherosclerotic calcification. Lymph nodes: Tiny calcified right hilar lymph nodes in the chest. No significantly enlarged lymph nodes by short axis criteria in the abdomen and pelvis. Urinary bladder: The bladder is normal. Reproductive: Endometrial stripe appears low-density and thickened up to 1 cm sagittal series 602, image 67, and axial series 3, image 92, better seen on this enhanced exam than on the earlier nonenhanced skeletal pelvis CT study. This is abnormal if this is a postmenopausal patient. Adnexa are unremarkable for age. Bones/joints: Prominent spinal degenerative changes, multilevel disc disease, spondylosis and facet arthropathy throughout the visualized thoracic and lumbar spine with multilevel vacuum phenomenon. No acute fracture or dislocation. There are no lytic skeletal lesions seen. Soft tissues: There is a small fatty umbilical hernia; no herniated bowel loops. There are no soft tissue masses or fluid collections. IMPRESSION: 1. A small layering right pleural effusion is either chronic or recurrent compared with previous CT from 09/17/2020. 2. There are multiple
--- NOTE | 2021-04-12 16:15 | XR_ITS ---
PROCEDURE INFORMATION: Exam: XR Left Foot Exam date and time: 04/12/2021 4:15 PM Age: 65 years old Clinical indication: Pain and injury or trauma; Swelling (edema); Injury details: S/P fall with left foot pain; Additional info: Pain, fall TECHNIQUE: Imaging protocol: XR Left foot. Views: 3 or more views. COMPARISON: US CA venous doppler LE LT 01/25/2019 12:23 PM FINDINGS: Bones/joints: No acute appearing fracture or dislocation. Mild arthritis at the 1st metatarsophalangeal joint, minimal 1st metatarsal head bunion formation. Mild arthritis in the midfoot, with spurs at the talonavicular joint and in the navicular-cuneiform joint. Moderate plantar calcaneal spur. Bones appear slightly demineralized. No focal lytic lesions. Soft tissues: There are multiple tiny punctate calcifications in the distal calf, which may be vascular calcifications or skin calcifications. Some possible vascular calcifications are also suggested in the plantar aspect of the midfoot on the lateral view. IMPRESSION: 1. No definite fracture or dislocation. 2. Osteopenia. 3. Arthritic changes in the midfoot and great toe. 4. Moderate plantar calcaneal spur, correlate for history of plantar fasciitis. 5. Possible vascular calcifications.
--- NOTE | 2021-04-12 16:16 | CT_ITS ---
PROCEDURE INFORMATION: Exam: CT Pelvis Without Contrast; Skeletal Exam date and time: 04/12/2021 4:16 PM Age: 65 years old Clinical indication: Pelvic pain; Patient HX: Pain, fall, tailbone TECHNIQUE: Imaging protocol: Computed tomography images of the pelvis without contrast. Exam focused on the skeletal structures. Radiation optimization: All CT scans at this facility use at least one of these dose optimization techniques: automated exposure control; mA and/or kV adjustment per patient size (includes targeted exams where dose is matched to clinical indication); or iterative reconstruction. COMPARISON: CT ABDOMEN PELVIS WO/W CON 09/17/2020 6:17 AM FINDINGS: Stomach and bowel: No bowel dilatation/obstruction or mucosal thickening. Appendix: No findings of appendicitis. Bladder: The bladder is normal. Reproductive: Question endometrial thickening or low-density nodule within or abutting the fundal endometrial canal, sagittal 602 image 67 and axial series 3, image 48, up to 1.4 cm diameter. Intraperitoneal space: No free fluid or free air in the pelvis, as visualized. Bones/joints: The sacrum and coccyx appear intact, no interval change compared with 09/17/2020 no acute pelvic fracture or dislocation.There are no lytic skeletal lesions seen. . Mild chronic bilateral sacroiliitis. Chronic lower lumbar degenerative disc disease with spondylosis, vacuum phenomenon in L4-L5 and L5-S1 discs. Lower lumbar facet arthropathy, more severe on the left. There is moderately severe stenosis of L5 neural foramina. Spinal stenosis L4-L5. Soft tissues: There is a small fatty umbilical hernia; no herniated bowel loops. Soft tissue edema in the posterior lower back and buttocks.There are no soft tissue masses or fluid collections. IMPRESSION: 1. No acute fracture or dislocation in the pelvis. Specifically, sacrum and coccyx appear intact and unchanged compared with prior CT of 09/17/2020. 2. Prominent lower lumbar degenerative disc disease, spondylosis and facet arthropathy. Spinal stenosis at L4-L5. Prominent bilateral L5 foraminal stenoses, correlate for radiculopathy. 3. Question low-density uterine fundal nodule versus endometrial thickening, up to 1.4 cm. This could be further evaluated with nonemergent pelvic ultrasound as clinically indicated to exclude fibroid or endometrial pathology. 4. Additional nonemergency and chronic findings as above.
[2021-04-12 16:19] LABS: Basophils # 0.1 K/mm3 (0-0.2); Basophils % 0.5 % (0.1-2.0); Eosinophils # 0.2 K/mm3 (0.0-0.4); Eosinophils % 1.5 % (0.1-12.0); Hemoglobin 10.2 g/dL (12.2-16.2); Lymphocytes # 1.7 K/mm3 (0.7-4.5); Lymphocytes % 16.1 % (10-50); Mean Corpuscular HGB Conc 30.8 g/dL (31.8-35.4); Mean Corpuscular Hemoglobin 24.9 pg (27.0-31.2); Mean Corpuscular Volume 80.7 fl (81-99); Mean Platelet Volume 9.7 fl (7.4-10.4); Monocytes # 0.5 K/mm3 (0.1-1.0); Monocytes % 4.3 % (1.7-9.3); Neutrophils # 8.3 K/mm3 (1.8-7.8); Neutrophils % 77.6 % (37.0-80.0); Platelet Count 285 K/mm3 (142-424); Red Blood Count 4.09 M/mm3 (4.20-5.40); Red Cell Distribution Width 17.7 % (11.5-17.5); White Blood Count 10.6 K/mm3 (4.8-10.8)
[2021-04-12 16:26] LABS: Chloride 92 mmol/L (98-107); Potassium 4.9 mmoL/L (3.5-5.1); Sodium 138 mmol/L (136-145)
[2021-04-12 16:28] LABS: Blood Urea Nitrogen 20 mg/dl (7-17); Creatinine Clearance Estimated 41 mL/min (50-200); Estimated Glomerular Filt Rate 84 ml/min (>60); GFR (African American) 102 ML/MIN (>60)
[2021-04-12 16:29] LABS: Alanine Aminotransferase 27 U/L (12-78); Albumin Level 4.8 g/dl (3.5-5.0); Albumin/Globulin Ratio 1.7 (1.1-1.8); Alkaline Phosphatase 162 U/L (38-126); Anion Gap 15.9 mEq/L (5-15); Aspartate Amino Transferase 29 U/L (14-36); Bilirubin,Total 0.3 mg/dl (0.2-1.3); Carbon Dioxide 35 mmol/L (22.0-30.0); Globulin 2.9 g/dL (1.3-3.2); Glucose 326 mg/dl (74-100); Lipase 117 U/L (23-300); Total Protein,Serum 7.7 g/dl (6.3-8.2)
--- NOTE | 2021-04-12 16:31 | HMH.EDGENADL ---
ED Disposition Clinical Impression: Abdominal pain Qualifiers: Abdominal location: upper abdomen, unspecified Qualified Code(s): R10.10 - Upper abdominal pain, unspecified Disposition: Admitted As Inpatient Condition on Discharge: Good - Critical Care Critical Care Time: No Attestation: On 04/12/21, the high probability of a clinically significant, sudden or life threatening deterioration of the following system(s) required my full and direct attention, intervention and personal management. The time I documented below is in addition to time spent performing reported procedures but includes the following listed in this critical care notation. Medical Decision Making - Tj Inquiry Pt receiving controlled substance: No Vital Signs: 04/12/21 15:42 04/12/21 18:00 04/12/21 18:30 Temperature 98.1 F Temperature Source Oral Pulse Rate 73 75 Pulse Rate [Radial] 96 H Respiratory Rate 24 22 20 Blood Pressure 113/42 L 115/51 L Blood Pressure [Right Arm] 157/53 H Blood Pressure Mean [Right Arm] 87 Blood Pressure Source [Right Arm] Blood Pressure Position Sitting Sitting Blood Pressure Position [Right Arm] Sitting 02 Sat by Pulse Oximetry 92 L 95 96 Oxygen Delivery Method Nasal Cannula Nasal Cannula Nasal Cannula Oxygen Flow Rate (LPM) 2 2 2 04/12/21 19:00 04/12/21 20:18 Temperature 98.5 F Temperature Source Oral Pulse Rate 72 Pulse Rate [Radial] 88 Respiratory Rate 22 20 Blood Pressure 122/50 L Blood Pressure [Right Arm] 159/71 H Blood Pressure Mean [Right Arm] 100 Blood Pressure Source [Right Arm] Automatic Cuff Blood Pressure Position Sitting Blood Pressure Position [Right Arm] 02 Sat by Pulse Oximetry 98 88 L Oxygen Delivery Method Nasal Cannula Room Air Oxygen Flow Rate (LPM) 2 - Lab Data Lab Results 04/12/21 16:10: VBG pH 7.37, VBG pCO2 53.2 H, VBG pO2 42.0 H, VBG HCO3 30.3 H, VBG Total CO2 32.0 H, VBG O2 Saturation 76.1 H, VBG Base Excess 5.1 H 04/12/21 16:10: WBC 10.6, RBC 4.09 L, Hgb 10.2 L, Hct 33.0 L, MCV 80.7 L, MCH 24.9 L, MCHC 30.8 L, RDW 17.7 H, Plt Count 285, MPV 9.7, Neut % (Auto) 77.6, Lymph % (Auto) 16.1, Morris % (Auto) 4.3, Eos % (Auto) 1.5, Baso % (Auto) 0.5, Neut # (Auto) 8.3 H, Lymph # (Auto) 1.7, Morris # (Auto) 0.5, Eos # (Auto) 0.2, Baso # (Auto) 0.1 04/12/21 16:10: Sodium 138, Potassium 4.9, Chloride 92 L, Carbon Dioxide 35 H, Anion Gap 15.9 H, BUN 20 H, Creatinine 0.70, Estimated Creat Clear 41, Estimated GFR 84, Est GFR ( Amer) 102, Glucose 326 H, Calcium 9.0, Total Bilirubin 0.3, AST 29, ALT 27, Alkaline Phosphatase 162 H, Total Protein 7.7, Albumin 4.8, Globulin 2.9, Albumin/Globulin Ratio 1.7 04/12/21 16:10: Lipase 117 04/12/21 16:10: Procalcitonin 0.095 04/12/21 16:24: Lactate 2.4 H Result diagrams: 04/12/21 16:10 04/12/21 16:10 Orders (Tests/Meds): ED MEDICATIONS Generic Name Dose Route Start Last Admin Trade Name Freq PRN Reason Stop Dose Admin Acetaminophen 650 mg 04/12/21 19:29 Acetaminophen 325mg Tab PO 05/12/21 19:28 Q4HP PRN Fever or Mild Pain Hydrocodone Bitart/Acetaminophen 1 tab 04/12/21 19:29 Hydrocodone/Apap 5/325 Mg Tablet PO 05/12/21 19:28 Q4HP PRN Mild to Moderate Pain Albuterol Sulfate puffs 04/12/21 19:37 Albuterol-Hfa 90mcg/Puff Inhaler 8gm IH 05/12/21 19:36 QID PRN shortness of breath or wheezing Albuterol/Ipratropium 3 ml 04/12/21 19:37 Ipratropium/Albuterol 3 Ml Neb IH 05/12/21 19:36 QIDP PRN copd Aspirin 81 mg 04/13/21 09:00 Aspirin Ec 81mg Tablet PO 05/13/21 08:59 DAILY DANN Bisoprolol Fumarate 5 mg 04/13/21 09:00 Bisoprolol 5mg Tablet PO 05/13/21 08:59 DAILY DANN Diazepam 5 mg 04/12/21 19:37 Diazepam 5mg Tablet PO 05/12/21 19:36 TIDP PRN Anxiety Ergocalciferol 50,000 unit 04/12/21 19:45 Ergocalciferol 50,000 Units (1.25mg) Capsule PO 05/12/21 19:44 WEEKLY DANN Fluoxetine HCl 20 mg 04/13
[2021-04-12 16:49] LABS: VBG Base Excess 5.1 mmol/L (-2.4-2.3); VBG HCO3 30.3 mmol/L (23-30); VBG Oxygen Saturation 76.1 % (50-70); VBG PH 7.37 mmol/L (7.31-7.41)
[2021-04-12 16:51] LABS: VBG PCO2 53.2 mmol/L (35-51)
[2021-04-12 16:54] LABS: Lactic Acid 2.4 mmol/L (0.7-2.1)
[2021-04-12 18:00] VITALS: BP 113/42; PULSE 73; RESP 22; O2SAT 95
[2021-04-12 18:30] VITALS: BP 115/51; PULSE 75; RESP 20; O2SAT 96
[2021-04-12 19:00] VITALS: BP 122/50; PULSE 72; RESP 22; O2SAT 98
[2021-04-12 19:19] VITALS: BMI 47.2
--- NOTE | 2021-04-12 19:23 | PC.NURSE ---
ATTEMPTED TO CALL REPORT. THEY WILL HAVE TO CALL YOU BACK
--- NOTE | 2021-04-12 19:29 | PC.NURSE ---
[facility]
--- NOTE | 2021-04-12 19:29 | XR_ITS ---
PROCEDURE INFORMATION: Exam: XR Chest Exam date and time: 04/12/2021 7:29 PM Age: 65 years old Clinical indication: Shortness of breath; Patient HX: SOA TECHNIQUE: Imaging protocol: XR of the chest. Views: 2 views. COMPARISON: CR XR CHEST 2V 01/17/2021 3:50 PM FINDINGS: Lungs: No acute pulmonary findings compared with 01/17/2021. Chronic right infrahilar and left lingular subsegmental atelectasis or scarring. Chronic surgical clip at the right hilum. Chronic right lower pulmonary volume loss and slight elevation of the anterior right hemidiaphragm. Chronic hazy density at the left cardiophrenic angle which is probably a pericardial fat pad. No focal consolidation. Pleural spaces: Unremarkable. No significant pleural effusion. No pneumothorax. Heart/Mediastinum: The cardiac silhouette is normal. Vasculature: Slightly tortuous aorta. Bones/joints: Chronic spinal degenerative changes, multilevel disc narrowing and spondylosis. No acute appearing fracture or high-grade listhesis, as visualized. Soft tissues: No acute findings in the soft tissues. IMPRESSION: 1. No acute findings compared with 01/17/2021. 2. Mild chronic subsegmental atelectasis, scarring and volume loss in the lungs as detailed above. 3. No focal consolidation.
--- NOTE | 2021-04-12 19:35 | PC.NURSE ---
REPORT CALLED TO FLOOR
[2021-04-12 19:39] LABS: Procalcitonin 0.095 ng/mL (0.0-2.0)
--- NOTE | 2021-04-12 20:01 | PC.NURSE ---
patient up to floor via wheelchair.
[2021-04-12 20:18] VITALS: BP 159/71; PULSE 88; RESP 20; TEMP 36.9; O2SAT 88
[2021-04-12 20:23] VITALS: BP 159/71; PULSE 88; RESP 18; TEMP 36.9; O2SAT 98
[2021-04-12 20:42] LABS: Reflex Lactic Add Lactic Reflex
[2021-04-12 20:55] LABS: C-Reactive Protein 17.6 mg/L (0-4)
[2021-04-12 21:07] LABS: Procalcitonin 0.094 ng/mL (0.0-2.0)
[2021-04-12 21:13] LABS: POC Glucose,Bedside 215 (70-110)
[2021-04-12 21:38] LABS: Erythrocyte Sedimentation Rate 22 mm/hr (0-30)
[2021-04-13] VITALS: BP 125/49; PULSE 73; RESP 16; TEMP 36.6
[2021-04-13 01:16] LABS: POC Glucose,Bedside 281 (70-110)
[2021-04-13 04:00] VITALS: BP 124/52; PULSE 73; RESP 18; TEMP 36.6; O2SAT 96
--- NOTE | 2021-04-13 05:51 | PC.NURSE ---
pt is AxOx4, has remained on 2L NC t/o shift, has complained of pain one time and was treated per DEC, lasix given this shift, 1350 mL out so far, ambulating to bathroom with standby assist
[2021-04-13 06:00] VITALS: BMI 47.9
[2021-04-13 06:55] LABS: Basophils # 0.1 K/mm3 (0-0.2); Basophils % 0.4 % (0.1-2.0); Eosinophils # 0.2 K/mm3 (0.0-0.4); Eosinophils % 1.8 % (0.1-12.0); Hematocrit 31.9 % (37.0-47.0); Hemoglobin 9.8 g/dL (12.2-16.2); Lymphocytes # 1.6 K/mm3 (0.7-4.5); Lymphocytes % 15.1 % (10-50); Mean Corpuscular HGB Conc 30.6 g/dL (31.8-35.4); Mean Corpuscular Hemoglobin 25.1 pg (27.0-31.2); Mean Corpuscular Volume 81.8 fl (81-99); Mean Platelet Volume 8.4 fl (7.4-10.4); Monocytes # 0.5 K/mm3 (0.1-1.0); Monocytes % 4.5 % (1.7-9.3); Neutrophils # 8.2 K/mm3 (1.8-7.8); Neutrophils % 78.1 % (37.0-80.0); Platelet Count 259 K/mm3 (142-424); Red Cell Distribution Width 17.7 % (11.5-17.5); White Blood Count 10.5 K/mm3 (4.8-10.8)
[2021-04-13 07:03] LABS: Prothrombin Time 12.1 seconds (10.1-12.5)
[2021-04-13 07:05] LABS: Alanine Aminotransferase 70 U/L (12-78); Albumin Level 4.3 g/dl (3.5-5.0); Albumin/Globulin Ratio 1.5 (1.1-1.8); Alkaline Phosphatase 140 U/L (38-126); Anion Gap 13.3 mEq/L (5-15); Aspartate Amino Transferase 66 U/L (14-36); Bilirubin,Total 0.5 mg/dl (0.2-1.3); Blood Urea Nitrogen 17 mg/dl (7-17); Calcium 8.6 mg/dl (8.4-10.2); Carbon Dioxide 37 mmol/L (22.0-30.0); Chloride 91 mmol/L (98-107); Creatinine Clearance Estimated 39 mL/min (50-200); Estimated Glomerular Filt Rate 101 ml/min (>60); GFR (African American) 122 ML/MIN (>60); Globulin 2.8 g/dL (1.3-3.2); Glucose 214 mg/dl (74-100); Magnesium 1.8 mg/dl (1.6-2.3); Phosphorous 3.6 mg/dl (2.5-4.5); Potassium 4.3 mmoL/L (3.5-5.1); Sodium 137 mmol/L (136-145); Total Protein,Serum 7.1 g/dl (6.3-8.2)
[2021-04-13 07:06] LABS: INR 1.03 (0.9-1.1)
[2021-04-13 07:11] LABS: POC Glucose,Bedside 219 (70-110)
[2021-04-13 08:00] VITALS: BP 153/78; PULSE 79; RESP 16; TEMP 36.4; O2SAT 92
[2021-04-13 08:03] LABS: Microscopic, Urine URINE MICROSCOPIC (MICROSCOPIC)
[2021-04-13 08:06] LABS: Appearance,Urine CLEAR (Clear); Bilirubin,Urine Negative (Negative); Blood, Urine 1+ (Negative); Color,Urine YELLOW (Yellow); Glucose,Urine (UA) Negative (Negative); Ketones,Urine Negative (Negative); Leukocyte Esterase,Urine TRACE (Negative); Nitrate,Urine Negative (Negative); Protein,Urine Negative (Negative)
--- NOTE | 2021-04-13 08:41 | P.CONPHA_ITS ---
[facility] Pharmacy VTE Monitoring - Patient Demographics Admission date: 04/13/21 Report Date: 04/13/21 Time: 08:41 Allergies/Adverse Reactions: Patient Allergies diclofenac Allergy (Verified 04/12/21 20:47) Unknown allergy reaction Height: 1.52 m Weight: 110.733 kg Patient Problems: Current Active Problems Abdominal pain (Acute) - VTE Risk Labs: VTE Related Lab Results Hgb 9.8 g/dL (12.2-16.2) L 04/13/21 06:40 Hct 31.9 % (37.0-47.0) L 04/13/21 06:40 Plt Count 259 K/mm3 (142-424) 04/13/21 06:40 PT 12.1 seconds (10.1-12.5) 04/13/21 06:40 INR 1.03 (0.9-1.1) 04/13/21 06:40 BUN 17 mg/dl (7-17) 04/13/21 06:40 Creatinine 0.60 mg/dl (0.52-1.04) 04/13/21 06:40 Estimated Creat Clear 39 mL/min (50-200) 04/13/21 06:40 Was VTE Risk Assessment Performed: Yes VTE Risk Level: Moderate Risk Clinical Trial Participant: No - Prophylaxis VTE Prophylaxis Ordered?: Yes Types of VTE Prophylaxis: TEDS Knee High
--- NOTE | 2021-04-13 09:37 | HMH.HP ---
*Admission Date: 04/13/21 *Chief complaint: abd pain *History of present illness: this pt with abd pain and was seen in office by pcp and sent to ed for eval -Patient is a 65-year-old female sent here from the primary care physician's clinic. Patient has a history of severe COPD. Had her gallbladder taken out she was 19 years old. Wears 2 L of oxygen at baseline at home. She was sent here today for epigastric abdominal pain as well as left foot and tailbone pain. Patient says that she is very weak when she walks and had a fall the other day where she landed on her butt. At that time she complained of tailbone pain as well as rolling her left foot. She is tender on the top of her left foot. She also complains of epigastric roman pain has been going on for multiple months and getting worse. Has a hard time eating due to significant pain at this time. No history of pancreatitis in the past. No nausea, vomiting. No dysuria or abnormal vaginal discharge. annmarie is a 65-year-old female presents emergency department for multiple complaints including epigastric pain and left foot and tailbone pain. Differential includes pancreatitis, bowel obstruction, bowel perforation, intra-abdominal abscess, left foot sprain, left foot fracture, tailbone fracture,. Given the patient's history exam plan to obtain basic labs, lipase, lactate, CT scan abdomen pelvis with contrast. Also obtain a left foot x-ray and CT bony pelvis. Pelvis grossly normal. CT scan of the abdomen pelvis showed possible metastatic disease and patient does have a history of cancer so she was counseled about these findings. Patient has an elevated lactate at 2.4 which is concerning. Believe the patient needs to be brought into the emergency department. I spoke to the patient's primary doctor over the phone who asked me to obtain a procalcitonin. Procalcitonin within normal limits. I do not believe the patient needs started on antibiotics at this time however will need eval and treatment [facility] History I have reviewed the patient's past medical history: Yes Medical History: Reports:: Arrhythmia, Atrial Fibrillation, Cancer, Cerebrovascular Accident, Diabetes Mellitus Type 2, Hyperlipidemia, Hypertension, Lung Disease, Kidney Stones Denies:: Diabetes Mellitus Type 1, Internal Pacemaker, MRSA, Seizures *Have you ever received a pneumonia vaccine?: Yes *Have you received a flu vaccine this season?: Yes Other Medical History: Reports: Blood Transfusion Reaction, Other Laterality Cases: Bilateral: Tonsillectomy Other Surgeries: Yes: Cancer Surgery, Cholecystectomy, Colonoscopy, Tubal Ligation, Other. No: Pacemaker Amputation: No Fractures: No - *Social History Last grade of school completed: Some college Smoking Status: Former smoker Tobacco Type: cigarettes # Packs/Day (cigarettes): 1 #Yrs smoked (if former smoker): 20 Alcohol Intake: former Alcohol Intake Frequency:: holidays/special occasions only Substance Use Type: marijuana, crack/cocaine, former substance user *Occupational Status:: unemployed Housing: house Household Members: spouse *Travel in the last 8 weeks: None Family Hx:: Cancer, Coronary Artery Disease, Diabetes, Hyperlipidemia, Hypertension, Stroke, Alcoholism Review of Systems - Review of Systems Review of systems:: pertinent systems reviewed and negative unless documented below - Constitutional Reports weakness, Denies fever(s) - Eyes Denies change in vision - ENT Denies dizziness - *Cardiovascular Denies chest pain - *Respiratory Denies cough - *Gastrointestinal Reports abdominal pain, Reports nausea, Reports vomiting - *Genitourinary Denies blood in urine - *Musculoskeletal Denies joint pain - Integumentary/Breasts Denies rash - *Neurologic Denies headache(s), Denies seizure-like activity - Psychiatric Denies anxiety Meds Home Medications Medication Instructions Recorded Confirmed Type aspirin 81 mg tablet,delayed 81 mg PO DA
[2021-04-13 10:07] LABS: Troponin I < 0.01 ng/ml (0.00-0.034)
[2021-04-13 11:25] LABS: POC Glucose,Bedside 320 (70-110)
--- NOTE | 2021-04-13 12:25 | HMH.PHAINT ---
MEDICATION RECONCILIATION COMPLETE USING EXTERNAL PHARMACY FILL HISTORY AND LIST FROM CARDIOLOGY OFFICE VISIT 02/14/21
--- NOTE | 2021-04-13 15:53 | PC.NURSE ---
Pt is AxOx4. Pt is tolerating 2L NC with sats above 92. Pt is able to ambulate with standby assistance to bathroom. Pt was able to give self shower during shift. Pt has had c/o left ankle pain from falling before being admitted. Pt also has c/o of constipation and has received Sennosides 8.6mg and Miralax 17 gm this shift without successful BM. Call light within reach. Will continue to monitor.
[2021-04-13 16:00] VITALS: BP 190/78; PULSE 73; RESP 16; TEMP 36.8; O2SAT 92
[2021-04-13 17:00] LABS: POC Glucose,Bedside 350 (70-110)
[2021-04-13 20:00] VITALS: BP 127/56; PULSE 69; RESP 18; TEMP 36.4; O2SAT 96
[2021-04-13 21:32] LABS: POC Glucose,Bedside 286 (70-110)
--- NOTE | 2021-04-14 03:34 | PC.NURSE ---
Patient is A&Ox4. Complaints of pain managed with po pain medication. patient was cooperative and pleasant throughout shift. rested well throughout shift, Patient verbalized that she did have a bowel movement. Patient ambulated in hallway at beginning of shift. Patient was wheezing significantly and PRN inhaler administered. No further concerns verbalized to RN. VSS. Patient remained on 2L for most of shift and o2 saturations remained around 95-96%.
[2021-04-14 04:00] VITALS: BP 116/55; PULSE 69; RESP 18; TEMP 36.6; O2SAT 98
[2021-04-14 05:33] VITALS: BMI 48.6
[2021-04-14 05:53] LABS: POC Glucose,Bedside 216 (70-110)
[2021-04-14 08:00] VITALS: BP 152/66; PULSE 67; RESP 18; TEMP 36.6; O2SAT 99
--- NOTE | 2021-04-14 10:14 | HMH.ACPN2 ---
Internal Medicine - PN: Subj *Date: 04/15/21 *Time: 07:47 Interval history: doing better- but still with rt upper abd pain Exam Vital signs and Labs for Last 24 Hours: Temp Pulse Resp BP Pulse Ox 97.8 F 67 18 152/66 H 99 04/14/21 08:00 04/14/21 08:00 04/14/21 08:00 04/14/21 08:00 04/14/21 08:00 Laboratory Results - last 24 hr 04/13/21 11:16: POC Glucose 320 H* 04/13/21 16:51: POC Glucose 350 H* 04/13/21 20:59: POC Glucose 286 H 04/14/21 05:19: POC Glucose 216 H I & O for Last 24 hours: Intake & Output 04/11/21 04/12/21 04/13/21 04/14/21 11:59 11:59 11:59 11:59 Intake Total 1490 / 1490 2167 / 2167 Output Total 1600 / 1600 Balance -110 / -110 2166 / 2166 Weight 244 lb 2 oz 248 lb 1 oz Microbiology Reports for the Last 24 Hours: Microbiology 04/13/21 07:40 Urine,Clean Catch Urine Culture - Preliminary NO GROWTH AFTER 24 HOURS - Constitutional no acute distress, obese - *Routine HEENT Exam Head: Present: normocephalic Eye: Present: EOMI, PERRL ENT: Present: mucous membranes dry - *Routine Neck Exam Present: supple. Absent: JVD - *Routine Respiratory Exam Present: decreased breath sounds - *Routine Cardiovascular Exam Present: RRR, murmur - *Routine Abdominal Exam Present: soft, tenderness (rt upper abd ) - *Routine Extremities Exam Absent: calf tenderness - *Routine Skin Exam Present: intact - *Routine Neurological Exam Present: alert, CN II-XII intact - Routine Psychiatric Exam Present: normal affect Assessment and Plan (1) Endometrial disorder Status: Acute Category: Medical Code(s): N85.9 - Noninflammatory disorder of uterus, unspecified (2) Abdominal pain Status: Acute Qualifiers: Abdominal location: upper abdomen, unspecified Qualified Code(s): R10.10 - Upper abdominal pain, unspecified Category: Medical Code(s): R10.9 - Unspecified abdominal pain (3) Diastolic dysfunction Status: Chronic Category: Medical Code(s): I51.89 - Other ill-defined heart diseases (4) History of lung cancer Status: Chronic Category: Medical Code(s): Z85.118 - Personal history of other malignant neoplasm of bronchus and lung (5) Lumbar disc disease with radiculopathy Status: Chronic Category: Medical Code(s): M51.16 - Intervertebral disc disorders with radiculopathy, lumbar region (6) Obesity Status: Chronic Qualifiers: Obesity type: due to excess calories Obesity classification: adult class 3 (BMI >= 40) Serious obesity comorbidity presence: with serious comorbidity Body mass index: BMI 40.0-44.9 Qualified Code(s): E66.01 - Morbid (severe) obesity due to excess calories; Z68.41 - Body mass index [BMI]40.0-44.9, adult Category: Medical Code(s): E66.9 - Obesity, unspecified (7) Hyperglycemia due to diabetes mellitus Status: Chronic Category: Medical Code(s): E11.65 - Type 2 diabetes mellitus with hyperglycemia (8) Osteopenia Status: Acute Qualifiers: Osteopenia location: multiple sites Qualified Code(s): M85.89 - Other specified disorders of bone density and structure, multiple sites Category: Medical Code(s): M85.80 - Other specified disorders of bone density and structure, unspecified site (9) Lumbar facet arthropathy Status: Acute Category: Medical Code(s): M47.816 - Spondylosis without myelopathy or radiculopathy, lumbar region (10) Lumbar canal stenosis Status: Acute Category: Medical Code(s): M48.061 - Spinal stenosis, lumbar region without neurogenic claudication (11) Foraminal stenosis of lumbar region Status: Acute Category: Medical Code(s): M48.061 - Spinal stenosis, lumbar region without neurogenic claudication
--- NOTE | 2021-04-14 10:15 | CT_ITS ---
PROCEDURE INFORMATION: Exam: CT Chest Without Contrast; Diagnostic Exam date and time: 04/14/2021 10:15 AM Age: 65 years old Clinical indication: Shortness of breath; Additional info: Dec bs RT TECHNIQUE: Imaging protocol: Diagnostic computed tomography of the chest without contrast. Radiation optimization: All CT scans at this facility use at least one of these dose optimization techniques: automated exposure control; mA and/or kV adjustment per patient size (includes targeted exams where dose is matched to clinical indication); or iterative reconstruction. COMPARISON: CT CHEST W CON 04/12/2020 3:44 PM FINDINGS: Lungs: Volume loss right lung with evidence of partial lung resection. Pleural spaces: Small right pleural effusion appears stable. Heart: Unremarkable. No cardiomegaly. No pericardial effusion. Aorta: Unremarkable. No aortic aneurysm. Lymph nodes: Unremarkable. No enlarged lymph nodes. Adrenal glands: Stable right adrenal nodule demonstrating fat density compatible with adrenal adenoma. Bones/joints: Unremarkable. No acute fracture. Soft tissues: Unremarkable. IMPRESSION: 1. Volume loss right lung with evidence of partial lung resection. 2. Small right pleural effusion appears stable. 3. Stable right adrenal nodule demonstrating fat density compatible with adrenal adenoma.
[2021-04-14 11:51] LABS: POC Glucose,Bedside 291 (70-110)
--- NOTE | 2021-04-14 15:50 | PC.NURSE ---
Pt is A+Ox4. No acute changes this shift. Pt ambulates well to bathroom with standby assistance. Pt has had c/o of right upper quad abdominal pain ranging from a 3-7 per numerical scale but has refused any kind of pain medication. Pt has tolerated 2 L nc with sats in upper 90s. Pts has been at bedside t/o shift. Call light within reach. Will continue to monitor.
[2021-04-14 16:00] VITALS: BP 141/58; PULSE 69; RESP 18; TEMP 36.6; O2SAT 98
[2021-04-14 16:29] LABS: POC Glucose,Bedside 270 (70-110)
[2021-04-14 18:18] VITALS: O2SAT 90
[2021-04-14 20:00] VITALS: BP 142/72; PULSE 72; RESP 20; TEMP 36.7; O2SAT 96
[2021-04-14 20:50] LABS: POC Glucose,Bedside 298 (70-110)
--- NOTE | 2021-04-15 03:35 | PC.NURSE ---
Patient is A&Ox4. SOme complaints of abdominal pain earlier in shift. VSS. No further concerns voiced to RN.
[2021-04-15 04:00] VITALS: BP 140/68; PULSE 74; RESP 20; TEMP 36.6; O2SAT 96
[2021-04-15 05:11] VITALS: BMI 109.9
[2021-04-15 05:43] LABS: POC Glucose,Bedside 266 (70-110)
[2021-04-15 08:00] VITALS: BP 149/68; PULSE 60; RESP 17; TEMP 36.6; O2SAT 97
--- NOTE | 2021-04-15 08:00 | US_ITS ---
PROCEDURE: US LIVER CLINICAL INDICATION: tenderness liver with abn ct COMPARISON: CT AGCHEST CT angio chest from 02/11/[address] CHEST W CON from 04/12/[address] ABDOMEN PELVIS W CON from 04/12/[address] CHEST WO CON from 04/14/2021 FINDINGS: PANCREAS: Pancreas is not well delineated due to overlying bowel gas. CT or MRI without and with contrast with pancreatic protocol may provide further evaluation if clinically desired. LIVER: In the hepatic dome there is a 3 cm hypoechoic nodule. There are some low level internal echoes. In the left hepatic lobe there is a 17 mm cyst. There has been a prior cholecystectomy. Common bile duct is 5 mm. RIGHT KIDNEY: Unremarkable. Normal size and echogenicity. No hydronephrosis GALLBLADDER: Prior cholecystectomy IMPRESSION: 1. 17 mm cyst left hepatic lobe 2. 3 cm hypoechoic nodule in the hepatic dome on the right. Sonographic appearance is indeterminate. Based on previous CT scan there appear to be some puddling of contrast peripherally suggesting that this may represent a hemangioma. This could be confirmed with CT or MRI with hemangioma protocol. Dictated by: Berhane Oden MD 04/15/2021 11:51 Berhane Oden MD in [facility] 04/15/2021 11:51
--- NOTE | 2021-04-15 09:40 | HMH.ACPN2 ---
Internal Medicine - PN: Subj *Date: 04/15/21 *Time: 08:30 Interval history: pt still c/o of rt quad pain and tenderness Exam Vital signs and Labs for Last 24 Hours: Temp Pulse Resp BP Pulse Ox 98 F 60 17 149/68 H 97 04/15/21 08:00 04/15/21 08:00 04/15/21 08:00 04/15/21 08:00 04/15/21 08:00 Laboratory Results - last 24 hr 04/14/21 11:25: POC Glucose 291 H 04/14/21 16:23: POC Glucose 270 H 04/14/21 20:20: POC Glucose 298 H 04/15/21 05:20: POC Glucose 266 H I & O for Last 24 hours: Intake & Output 04/12/21 04/13/21 04/14/21 04/15/21 11:59 11:59 11:59 11:59 Intake Total 1490 / 1490 2167 / 2167 1576 / 1576 Output Total 1600 / 1600 1 / 1 0 / 0 Balance -110 / -110 2166 / 2166 1576 / 1576 Weight 244 lb 2 oz 248 lb 1 oz 560 lb 3.113 oz Microbiology Reports for the Last 24 Hours: Microbiology 04/12/21 21:11 Blood - Random Blood Culture - Preliminary NO GROWTH AFTER 48 HOURS 04/12/21 21:06 Blood - Random Blood Culture - Preliminary NO GROWTH AFTER 48 HOURS 04/13/21 07:40 Urine,Clean Catch Urine Culture - Preliminary NO GROWTH AFTER 24 HOURS - Constitutional no acute distress, obese - *Routine HEENT Exam Head: Present: normocephalic Eye: Present: PERRL ENT: Present: mucous membranes moist - *Routine Neck Exam Present: supple. Absent: lymphadenopathy - *Routine Respiratory Exam Present: CTA bilaterally - *Routine Cardiovascular Exam Present: RRR - *Routine Abdominal Exam Present: soft, normoactive bowel sounds, tenderness - *Routine Extremities Exam Absent: cyanosis, clubbing, edema - *Routine Skin Exam Present: warm. Absent: rash - *Routine Neurological Exam Present: alert, oriented X3 - Routine Psychiatric Exam Present: normal affect Assessment and Plan (1) Endometrial disorder Status: Acute Category: Medical Code(s): N85.9 - Noninflammatory disorder of uterus, unspecified (2) Abdominal pain Status: Acute Qualifiers: Abdominal location: upper abdomen, unspecified Qualified Code(s): R10.10 - Upper abdominal pain, unspecified Category: Medical Code(s): R10.9 - Unspecified abdominal pain (3) Diastolic dysfunction Status: Chronic Category: Medical Code(s): I51.89 - Other ill-defined heart diseases (4) History of lung cancer Status: Chronic Category: Medical Code(s): Z85.118 - Personal history of other malignant neoplasm of bronchus and lung (5) Lumbar disc disease with radiculopathy Status: Chronic Category: Medical Code(s): M51.16 - Intervertebral disc disorders with radiculopathy, lumbar region (6) Obesity Status: Chronic Qualifiers: Obesity type: due to excess calories Obesity classification: adult class 3 (BMI >= 40) Serious obesity comorbidity presence: with serious comorbidity Body mass index: BMI 40.0-44.9 Qualified Code(s): E66.01 - Morbid (severe) obesity due to excess calories; Z68.41 - Body mass index [BMI]40.0-44.9, adult Category: Medical Code(s): E66.9 - Obesity, unspecified (7) Hyperglycemia due to diabetes mellitus Status: Chronic Category: Medical Code(s): E11.65 - Type 2 diabetes mellitus with hyperglycemia (8) Osteopenia Status: Acute Qualifiers: Osteopenia location: multiple sites Qualified Code(s): M85.89 - Other specified disorders of bone density and structure, multiple sites Category: Medical Code(s): M85.80 - Other specified disorders of bone density and structure, unspecified site (9) Lumbar facet arthropathy Status: Acute Category: Medical Code(s): M47.816 - Spondylosis without myelopathy or radiculopathy, lumbar region (10) Lumbar canal stenosis Status: Acute Category: Medical Code(s): M48.061 - Spinal stenosis, lumbar region without neurogenic claudication (11) Foraminal stenosis of lumbar region Status: Acute Category: Med
[2021-04-15 09:43] LABS: Coronavirus 19, PCR Not Detected (NotDetected); Influenza A, PCR Not Detected (NotDetected); Influenza B, PCR Not Detected (NotDetected)
[2021-04-15 11:36] LABS: POC Glucose,Bedside 239 (70-110)
[2021-04-15 12:48] VITALS: BMI 48.4
--- NOTE | 2021-04-15 15:11 | PC.NURSE ---
Report given to SOHAIL Moise
[2021-04-15 16:00] VITALS: BP 141/66; PULSE 68; RESP 18; TEMP 36.5; O2SAT 99
--- NOTE | 2021-04-15 18:46 | PC.NURSE ---
SHE IS AOX4, ABLE TO MAKE NEEDS KNOWN TO STAFF. AMBULATES INDEPENDENTLY TO RESTROOM. DENIES PAIN AND N/V/D. 2LNC IN PLACE AT THIS TIME.
[2021-04-15 20:00] VITALS: BP 148/68; PULSE 76; RESP 18; TEMP 36.4; O2SAT 94
--- NOTE | 2021-04-15 20:35 | PC.NURSE ---
Snack passed and trash pulled
[2021-04-15 20:36] LABS: POC Glucose,Bedside 306 (70-110)
[2021-04-15 20:36] LABS: POC Glucose,Bedside 359 (70-110)
[2021-04-16 02:26] VITALS: O2SAT 97
--- NOTE | 2021-04-16 03:26 | PC.NURSE ---
Patient is A&Ox4. Complained of pain, controlled with PO pain medicine. VSS. Ambulated to bathroom with stand by assist. Still remains on 2L NC. No further concerns voiced to RN.
[2021-04-16 04:00] VITALS: BP 123/58; PULSE 71; RESP 18; TEMP 36.4; O2SAT 97
[2021-04-16 06:03] LABS: POC Glucose,Bedside 236 (70-110)
[2021-04-16 06:26] VITALS: BMI 48.6
[2021-04-16 06:45] LABS: Basophils % 0.4 % (0.1-2.0); Eosinophils # 0.2 K/mm3 (0.0-0.4); Hematocrit 29.9 % (37.0-47.0); Hemoglobin 9.2 g/dL (12.2-16.2); Lymphocytes # 1.7 K/mm3 (0.7-4.5); Lymphocytes % 22.3 % (10-50); Mean Corpuscular HGB Conc 30.6 g/dL (31.8-35.4); Mean Corpuscular Hemoglobin 25.4 pg (27.0-31.2); Mean Corpuscular Volume 82.9 fl (81-99); Mean Platelet Volume 8.2 fl (7.4-10.4); Monocytes # 0.3 K/mm3 (0.1-1.0); Neutrophils # 5.4 K/mm3 (1.8-7.8); Neutrophils % 70.4 % (37.0-80.0); Platelet Count 227 K/mm3 (142-424); Red Blood Count 3.61 M/mm3 (4.20-5.40); Red Cell Distribution Width 17.4 % (11.5-17.5); White Blood Count 7.7 K/mm3 (4.8-10.8)
[2021-04-16 07:41] LABS: Anion Gap 10.8 mEq/L (5-15); Blood Urea Nitrogen 14 mg/dl (7-17); Calcium 8.1 mg/dl (8.4-10.2); Carbon Dioxide 35 mmol/L (22.0-30.0); Chloride 98 mmol/L (98-107); Creatinine Clearance Estimated 39 mL/min (50-200); Estimated Glomerular Filt Rate 124 ml/min (>60); GFR (African American) 150 ML/MIN (>60); Glucose 232 mg/dl (74-100); Potassium 4.8 mmoL/L (3.5-5.1); Sodium 139 mmol/L (136-145)
[2021-04-16 07:46] VITALS: BP 163/75; PULSE 68; RESP 19; TEMP 36.8; O2SAT 96
[2021-04-16 08:00] VITALS: O2SAT 96
--- NOTE | 2021-04-16 08:15 | HMH.ACPN ---
Internal Medicine - PN: Subj *Date: 04/16/21 *Time: 08:15 Exam Vital signs and Labs for Last 24 Hours: Temp Pulse Resp BP Pulse Ox 98.3 F 68 19 163/75 H 96 04/16/21 07:46 04/16/21 07:46 04/16/21 07:46 04/16/21 07:46 04/16/21 07:46 Laboratory Results - last 24 hr 04/15/21 09:38: SARS-CoV-2 (PCR) Not detected, Influenza A Untype (PCR) Not detected, Influenza Type B (PCR) Not detected 04/15/21 11:22: POC Glucose 239 H 04/15/21 16:37: POC Glucose 306 H* 04/15/21 20:28: POC Glucose 359 H* 04/16/21 05:38: POC Glucose 236 H 04/16/21 06:14: WBC 7.7 D, RBC 3.61 L, Hgb 9.2 L, Hct 29.9 L, MCV 82.9, MCH 25.4 L, MCHC 30.6 L, RDW 17.4, Plt Count 227, MPV 8.2, Neut % (Auto) 70.4, Lymph % (Auto) 22.3, Cache % (Auto) 4.0, Eos % (Auto) 3.0, Baso % (Auto) 0.4, Neut # (Auto) 5.4, Lymph # (Auto) 1.7, Cache # (Auto) 0.3, Eos # (Auto) 0.2, Baso # (Auto) 0.0 04/16/21 06:14: Sodium 139, Potassium 4.8, Chloride 98, Carbon Dioxide 35 H, Anion Gap 10.8, BUN 14, Creatinine 0.50 L, Estimated Creat Clear 39, Estimated GFR 124, Est GFR ( Amer) 150 D, Glucose 232 H, Calcium 8.1 L I & O for Last 24 hours: Intake & Output 04/13/21 04/14/21 04/15/21 04/16/21 23:59 23:59 23:59 23:59 Intake Total 1969 / 1969 2407 / 2407 2146 / 2266 1650 / 1650 Output Total 1601 / 1601 0 / 0 Balance 369 / 369 240 / 2402145 / 2265 1650 / 1650 Weight 110.733 kg 112.519 kg 112 kg 112.491 kg Microbiology Reports for the Last 24 Hours: Microbiology 04/13/21 07:40 Urine,Clean Catch Urine Culture - Final NO GROWTH AFTER 48 HOURS Assessment and Plan (1) Endometrial disorder Status: Acute Category: Medical Code(s): N85.9 - Noninflammatory disorder of uterus, unspecified (2) Abdominal pain Status: Acute Qualifiers: Abdominal location: upper abdomen, unspecified Qualified Code(s): R10.10 - Upper abdominal pain, unspecified Category: Medical Code(s): R10.9 - Unspecified abdominal pain (3) Diastolic dysfunction Status: Chronic Category: Medical Code(s): I51.89 - Other ill-defined heart diseases (4) History of lung cancer Status: Chronic Category: Medical Code(s): Z85.118 - Personal history of other malignant neoplasm of bronchus and lung (5) Lumbar disc disease with radiculopathy Status: Chronic Category: Medical Code(s): M51.16 - Intervertebral disc disorders with radiculopathy, lumbar region (6) Obesity Status: Chronic Qualifiers: Obesity type: due to excess calories Obesity classification: adult class 3 (BMI >= 40) Serious obesity comorbidity presence: with serious comorbidity Body mass index: BMI 40.0-44.9 Qualified Code(s): E66.01 - Morbid (severe) obesity due to excess calories; Z68.41 - Body mass index [BMI]40.0-44.9, adult Category: Medical Code(s): E66.9 - Obesity, unspecified (7) Hyperglycemia due to diabetes mellitus Status: Chronic Category: Medical Code(s): E11.65 - Type 2 diabetes mellitus with hyperglycemia (8) Osteopenia Status: Acute Qualifiers: Osteopenia location: multiple sites Qualified Code(s): M85.89 - Other specified disorders of bone density and structure, multiple sites Category: Medical Code(s): M85.80 - Other specified disorders of bone density and structure, unspecified site (9) Lumbar facet arthropathy Status: Acute Category: Medical Code(s): M47.816 - Spondylosis without myelopathy or radiculopathy, lumbar region (10) Lumbar canal stenosis Status: Acute Category: Medical Code(s): M48.061 - Spinal stenosis, lumbar region without neurogenic claudication (11) Foraminal stenosis of lumbar region Status: Acute Category: Medical Code(s): M48.061 - Spinal stenosis, lumbar region without neurogenic claudication The patient's infection will respond to the chosen ABx?: Yes Is the patient receiving the right drug, dose, and route?: Yes Could a more targeted ABx be ordered?: No
--- NOTE | 2021-04-16 09:30 | HMH.DCSUM ---
General - General Admission date:: 04/12/21 Discharge date: 04/16/21 HPI HPI: this pt with abd pain and was seen in office by pcp and sent to ed for eval -Patient is a 65-year-old female sent here from the primary care physician's clinic. Patient has a history of severe COPD. Had her gallbladder taken out she was 19 years old. Wears 2 L of oxygen at baseline at home. She was sent here today for epigastric abdominal pain as well as left foot and tailbone pain. Patient says that she is very weak when she walks and had a fall the other day where she landed on her butt. At that time she complained of tailbone pain as well as rolling her left foot. She is tender on the top of her left foot. She also complains of epigastric roman pain has been going on for multiple months and getting worse. Has a hard time eating due to significant pain at this time. No history of pancreatitis in the past. No nausea, vomiting. No dysuria or abnormal vaginal discharge. atient is a 65-year-old female presents emergency department for multiple complaints including epigastric pain and left foot and tailbone pain. Differential includes pancreatitis, bowel obstruction, bowel perforation, intra-abdominal abscess, left foot sprain, left foot fracture, tailbone fracture,. Given the patient's history exam plan to obtain basic labs, lipase, lactate, CT scan abdomen pelvis with contrast. Also obtain a left foot x-ray and CT bony pelvis. Pelvis grossly normal. CT scan of the abdomen pelvis showed possible metastatic disease and patient does have a history of cancer so she was counseled about these findings. Patient has an elevated lactate at 2.4 which is concerning. Believe the patient needs to be brought into the emergency department. I spoke to the patient's primary doctor over the phone who asked me to obtain a procalcitonin. Procalcitonin within normal limits. I do not believe the patient needs started on antibiotics at this time however will need eval and treatment Hospital Course Hospital Course: this pt with abd pain and was seen in office by pcp and sent to ed for eval -Patient is a 65-year-old female sent here from the primary care physician's clinic. Patient has a history of severe COPD. Had her gallbladder taken out she was 19 years old. Wears 2 L of oxygen at baseline at home. She was sent here today for epigastric abdominal pain as well as left foot and tailbone pain. Patient says that she is very weak when she walks and had a fall the other day where she landed on her butt. At that time she complained of tailbone pain as well as rolling her left foot. She is tender on the top of her left foot. She also complains of epigastric roman pain has been going on for multiple months and getting worse. Has a hard time eating due to significant pain at this time. No history of pancreatitis in the past. No nausea, vomiting. No dysuria or abnormal vaginal discharge. 04/12/21 Foot XR: IMPRESSION: 1. No definite fracture or dislocation. 2. Osteopenia. 3. Arthritic changes in the midfoot and great toe. 4. Moderate plantar calcaneal spur, correlate for history of plantar fasciitis. 5. Possible vascular calcifications. Electronically signed by Vaishali Flowers 04/12/21 CXR: IMPRESSION: 1. No acute findings compared with 01/17/2021. 2. Mild chronic subsegmental atelectasis, scarring and volume loss in the lungs as detailed above. 3. No focal consolidation. Electronically signed by Vaishali Flowers, 04/12/[address]: IMPRESSION: 1. No acute fracture or dislocation in the pelvis. Specifically, sacrum and coccyx appear intact and unchanged compared with prior CT of 09/17/2020. 2. Prominent lower lumbar degenerative disc disease, spondylosis and facet arthropathy. Spinal stenosis at L4-L5. Prominent bilateral L5 foraminal stenoses, correlate for radiculopathy. 3. Question low-density uterine fundal nodule versus endometrial thickeni
== END 2021-04-16 11:26 | disposition home or self-care (01) ==
LOC: ER 16:00 → 2ND 20:19
PROVIDERS: Emergency Medicine; Nurse Practitioner Family; Admitting Provider Internal Medicine Adolescent Medicine; Emergency Provider Emergency Medicine; PCP Family Medicine; Visit Provider Family Medicine
DX: N85.9 Noninflammatory disorder of uterus, unspecified (principal); E66.01 Morbid (severe) obesity due to excess calories; Z68.42 Body mass index [BMI] 45.0-49.9, adult; M51.16 Intervertebral disc disorders with radiculopathy, lumbar region; Z85.118 Personal history of other malignant neoplasm of bronchus and lung; E11.65 Type 2 diabetes mellitus with hyperglycemia; M85.89 Other specified disorders of bone density and structure, multiple sites; M47.816 Spondylosis without myelopathy or radiculopathy, lumbar region; M48.061 Spinal stenosis, lumbar region without neurogenic claudication; Z79.4 Long term (current) use of insulin; Z79.899 Other long term (current) drug therapy; Z88.8 Allergy status to other drugs, medicaments and biological substances
CPT/HCPCS: 71046; 71250; 72192; 73630; 74177; 76705; 80048; 80053; 81001; 82803; 82962; 83605; 83690; 83735; 84100; 84145; 84484; 85025; 85610; 85651; 86140; 87040; 87086; 94761; 99284; 99291; G0378; Q9967; U0003

== ENCOUNTER → 2021-05-15 18:09 | Outpatient (CLI) | payer OTHER, SELFPAY ==
[2021-05-15 18:30] LABS: Hemoglobin A1C 9.5 % (4.0-6.0)
== END ==
LOC: LAB.DROPOF 18:09
PROVIDERS: Visit Provider Nurse Practitioner Family
DX: E11.9 Type 2 diabetes mellitus without complications (principal); Z79.4 Long term (current) use of insulin
CPT/HCPCS: 83036

== ENCOUNTER → 2022-01-13 14:20 | Outpatient (CLI) | payer MEDICARE, SELFPAY ==
[2022-01-13 18:18] LABS: Basophils # 0.1 K/mm3 (0-0.2); Basophils % 0.6 % (0.1-2.0); Eosinophils # 0.1 K/mm3 (0.0-0.4); Eosinophils % 0.7 % (0.1-12.0); Hematocrit 34.8 % (37.0-47.0); Lymphocytes # 1.2 K/mm3 (0.7-4.5); Lymphocytes % 11.6 % (10-50); Mean Corpuscular HGB Conc 31.7 g/dL (31.8-35.4); Mean Corpuscular Hemoglobin 27.1 pg (27.0-31.2); Mean Corpuscular Volume 85.4 fl (81-99); Mean Platelet Volume 8.9 fl (7.4-10.4); Monocytes # 0.4 K/mm3 (0.1-1.0); Monocytes % 3.3 % (1.7-9.3); Neutrophils # 8.9 K/mm3 (1.8-7.8); Neutrophils % 83.8 % (37.0-80.0); Platelet Count 288 K/mm3 (142-424); Red Blood Count 4.08 M/mm3 (4.20-5.40); White Blood Count 10.6 K/mm3 (4.8-10.8)
[2022-01-13 18:51] LABS: Alanine Aminotransferase 28 U/L (12-78); Albumin Level 4.4 g/dl (3.5-5.0); Albumin/Globulin Ratio 1.8 (1.1-1.8); Alkaline Phosphatase 151 U/L (38-126); Anion Gap 15.1 mEq/L (5-15); Aspartate Amino Transferase 24 U/L (14-36); Bilirubin,Total 0.6 mg/dl (0.2-1.3); Blood Urea Nitrogen 17 mg/dl (7-17); Calcium 8.7 mg/dl (8.4-10.2); Carbon Dioxide 33 mmol/L (22.0-30.0); Chloride 92 mmol/L (98-107); Chol/HDL Ratio 3.5 (1-3.5); Cholesterol 129 mg/dl (140-200); Estimated Glomerular Filt Rate 72 ml/min (>60); GFR (African American) 87 ML/MIN (>60); Globulin 2.5 g/dL (1.3-3.2); Glucose 161 mg/dl (74-100); HDL Cholesterol 37 mg/dl (40-60); Potassium 4.1 mmoL/L (3.5-5.1); Sodium 136 mmol/L (136-145); Total Protein,Serum 6.9 g/dl (6.3-8.2); Triglycerides 135 mg/dl (30-150); VLDL Cholesterol 27 mg/dL (0-40)
[2022-01-13 18:54] LABS: Hemoglobin A1C 6.6 % (4.0-6.0)
[2022-01-13 19:03] LABS: Direct LDL Cholesterol 67.25 mg/dL (100-129)
[2022-01-13 19:10] LABS: T4 (Thyroxine) 11.1 ug/dl (5.53-11.0)
[2022-01-15 11:26] LABS: C-Peptide 9.4 ng/mL (1.1-4.4)
== END ==
PROVIDERS: PCP Nurse Practitioner Family; Visit Provider Nurse Practitioner Family
DX: E11.9 Type 2 diabetes mellitus without complications (principal); R53.83 Other fatigue; E66.9 Obesity, unspecified; Z68.42 Body mass index [BMI] 45.0-49.9, adult; Z79.4 Long term (current) use of insulin
CPT/HCPCS: 80053; 80061; 82306; 83036; 84436; 84443; 84681; 85025

== ENCOUNTER → 2022-05-21 09:46 | Outpatient (CLI) | payer MEDICARE, SELFPAY ==
--- NOTE | 2022-05-21 09:47 | US_ITS ---
FINAL REPORT CLINICAL HISTORY: Post menopausal Bleeding FINDINGS: Transvaginal sonographic images of the pelvis were obtained. The uterus measures 6.4 x 3.7 x 3.9 cm. The endometrium is thickened and somewhat heterogeneous measuring 12 mm, nonspecific. No uterine mass is identified. The right ovary measures 1.9 cm in length and left ovary measures 2.2 cm in length. Normal blood flow seen to the ovaries. There is no evidence of free fluid. IMPRESSION: Thickened endometrium is abnormal but nonspecific. Otherwise unremarkable exam. Reviewed, Interpreted and Dictated by Prasanna Stuart III, MD Transcribed by Nusrat Vasquez Authenticated and [facility]
== END ==
LOC: RAD 09:47
PROVIDERS: PCP Family Medicine; Visit Provider Obstetrics & Gynecology
DX: N95.0 Postmenopausal bleeding (principal)
CPT/HCPCS: 76830

== ENCOUNTER → 2022-07-02 16:15 | Outpatient (CLI) | payer MEDICARE, SELFPAY ==
[2022-07-02 16:37] LABS: Basophils # 0.1 K/mm3 (0-0.2); Basophils % 0.7 % (0.1-2.0); Eosinophils # 0.2 K/mm3 (0.0-0.4); Hematocrit 34.6 % (37.0-47.0); Hemoglobin 10.6 g/dL (12.2-16.2); Lymphocytes # 1.9 K/mm3 (0.7-4.5); Lymphocytes % 18.9 % (10-50); Mean Corpuscular HGB Conc 30.8 g/dL (31.8-35.4); Mean Corpuscular Hemoglobin 25.3 pg (27.0-31.2); Mean Corpuscular Volume 82.3 fl (81-99); Mean Platelet Volume 8.6 fl (7.4-10.4); Monocytes # 0.3 K/mm3 (0.1-1.0); Monocytes % 3.2 % (1.7-9.3); Neutrophils # 7.5 K/mm3 (1.8-7.8); Neutrophils % 75.2 % (37.0-80.0); Platelet Count 266 K/mm3 (142-424); Red Blood Count 4.21 M/mm3 (4.20-5.40); Red Cell Distribution Width 17.1 % (11.5-17.5)
[2022-07-02 17:28] LABS: Alanine Aminotransferase 20 U/L (12-78); Albumin Level 3.8 g/dl (3.5-5.0); Albumin/Globulin Ratio 1.5 (1.1-1.8); Alkaline Phosphatase 152 U/L (38-126); Aspartate Amino Transferase 21 U/L (14-36); Bilirubin,Total 0.3 mg/dl (0.2-1.3); Blood Urea Nitrogen 16 mg/dl (7-17); Calcium 8.4 mg/dl (8.4-10.2); Carbon Dioxide 35 mmol/L (22.0-30.0); Chloride 92 mmol/L (98-107); Estimated Glomerular Filt Rate 84 ml/min (>60); GFR (African American) 102 ML/MIN (>60); Globulin 2.5 g/dL (1.3-3.2); Glucose 146 mg/dl (74-100); Sodium 136 mmol/L (136-145); Total Protein,Serum 6.3 g/dl (6.3-8.2)
== END ==
PROVIDERS: PCP Family Medicine; Visit Provider Obstetrics & Gynecology
DX: N95.0 Postmenopausal bleeding (principal); Z01.812 Encounter for preprocedural laboratory examination; Z20.822 Contact with and (suspected) exposure to COVID-19
CPT/HCPCS: 36415; 80053; 85025; C9803; U0003; U0005

== ENCOUNTER 2022-07-04 06:10 | Day surgery (SDC) | payer MEDICARE, SELFPAY ==
[2022-07-04] VITALS (16 sets, daily range): BP systolic 120–155; BP diastolic 64–97; PULSE 72–97; RESP 10–18; TEMP 36.2–37.2; O2SAT 92–97; BMI 42.0
--- NOTE | 2022-07-04 07:10 | EXP.ANES.CKL ---
PFSH PFSH Medical History CHF (congestive heart failure) COPD (chronic obstructive pulmonary disease) CVA (cerebral vascular accident) Diabetes mellitus, type 2 Dyspnea HLD (hyperlipidemia) HTN (hypertension) Lung cancer Surgical History H/O tubal ligation Hx of cholecystectomy Hx of tonsillectomy Status post partial removal of lung Family History Other Family history of atrial fibrillation Family history of cancer Social History Smoking Status: Former smoker pack-years: 20 second hand exposure: Yes alcohol intake: former substance use type: former substance user, marijuana and crack/cocaine current occupational status: unemployed Travel in the last 8 weeks: Inside the [place] household members: spouse housing: house current occupational exposures/hazards: No caffeine: Yes [facility] Anesthesia Checklist Patient Identification Patient Identification: Arm Band and Verbal (Name & ) Structural Data Admitted From: Home Planned Operative Procedure/s: Hyst/D & C Consent for Planned Operative Procedure(s) Verified: Yes NPO Status Verified Time NPO: 00:00 Chart Verification Results Verified: CBC and BMP Additional verifications Patient : No Anesthesia Reactions: No Hx Blood Transfusions: No Blood Transfusion Reaction: Yes Airway Assessment C-Spine Mobility Assessed: Yes TMJ Mobility Assessed: Yes Dentition: Dentures-poor fitting Neurological Assessment Level of Consciousness: Awake Hx Seizures: No Numbness or tingling in extremities: No Anesthesia Plan Anesthesia Risk discussed: Yes Anesthesia Plan: Verified ASA Class: III Anesthesia Type: General
--- NOTE | 2022-07-04 08:44 | P.PNANES_ITS ---
[facility] Anesthesia Record Part I Anesthesia Record I Intake, IV Amount: 500 Estimated blood loss (mL): 5 Urine output (mL): 0 Blood Pressure: 155/76 SaO2: 97 Pulse Rate: 97 Respiratory Rate: 10 Temperature: 98.4 F Patient is:: Awake Stable to PACU at:: 08:41
[2022-07-04 08:53] LABS: POC Glucose,Bedside 194 (70-110)
--- NOTE | 2022-07-04 09:43 | SUR.PHASEI ---
0934- detailed report given to heidi kauffman in post op at this time. Pt hooked up to monitors and is stable at this time with heidi kauffman.
--- NOTE | 2022-07-04 09:44 | SUR.PHASEI ---
0846- pt blood sugar at this time via finger stick is 194
--- NOTE | 2022-07-04 10:02 | EXP.OP.NOTE ---
Date of procedure: 07/04/22 Pre-op Diagnosis:: 1. Postmenopausal bleeding 2. Thickened endometrium 3. Obesity Post-op Diagnosis:: Same Procedure performed:: D&C Hysteroscopy Myosure excision of endometrial lesions Surgeon:: Regina Spann MD DRAG OUT WORKER:: Philip Mccauley Anesthesia: GETA Estimated blood loss (mL): 5 Operative findings:: Multiple polypoid lesions endometrial cavity Operative note:: The patient was taken to the OR and general anesthesia administered without difficulty. She was prepped/draped in lithotomy position. The cervix was dilated and hysteroscopic evaluation performed. Numerous polypoid lesions were visualized within the endometrial cavity, along both the anterior and posterior nunes. The Myosure was used to excise these lesions and to sample endometrial tissue throughout the cavity. Once this was completed, all instruments were removed from her uterus and vagina. She was taken out of lithotomy position, awakened from anesthesia and taken to the PACU in stable condition. All sponge, needle & instrument counts correct. EBL 5cc. Condition: stable Disposition: PACU Specimens:: Endometrial Complications:: None
--- NOTE | 2022-07-04 14:33 | EXP.ANES.II ---
[facility] Anesthesia Record Part II Anesthesia Record Part II Discharge Time: 09:31 Destination: Surgical Day Care (OP Surgery) PACU nurse assessment reviewed?: Yes Patient Condition:: Good Anesthesia Complications:: None Swallowing reflex intact?: Yes Cyanosis?: No Blood Pressure: 127/71 Pulse Rate: 77 Temperature: 98.4 F Mental Status: Alert & Oriented Pain level:: 0 Nausea and/or vomitting:: None Intake, IV Amount: 0
[2022-07-04 16:50] LABS: POC Glucose,Bedside 191 (70-110)
== END 2022-07-04 10:25 | disposition home or self-care (01) ==
PROVIDERS: PCP Family Medicine; Visit Provider Obstetrics & Gynecology
DX: N95.0 Postmenopausal bleeding (principal); R93.89 Abnormal findings on diagnostic imaging of other specified body structures; N84.0 Polyp of corpus uteri; Z79.899 Other long term (current) drug therapy; Z68.41 Body mass index [BMI] 40.0-44.9, adult; E66.9 Obesity, unspecified
CPT/HCPCS: 58558; 82962; 88305; 94640; 96374

== ENCOUNTER → 2023-04-17 11:00 | Outpatient (CLI) | payer MEDICARE, SELFPAY ==
[2023-04-17 18:08] LABS: Chloride 97 mmol/L (98-107); Potassium 4.2 mmoL/L (3.5-5.1); Sodium 137 mmol/L (136-145)
[2023-04-17 18:11] LABS: Alanine Aminotransferase 23 U/L (12-78); Albumin Level 4.3 g/dl (3.5-5.0); Albumin/Globulin Ratio 1.7 (1.1-1.8); Alkaline Phosphatase 163 U/L (38-126); Anion Gap 13.2 mEq/L (5-15); Aspartate Amino Transferase 26 U/L (14-36); Bilirubin,Total 0.4 mg/dl (0.2-1.3); Carbon Dioxide 31 mmol/L (22.0-30.0); Cholesterol 123 mg/dl (140-200); Globulin 2.5 g/dL (1.3-3.2); Total Protein,Serum 6.8 g/dl (6.3-8.2); Triglycerides 163 mg/dl (30-150); VLDL Cholesterol 33 mg/dL (0-40)
[2023-04-17 18:12] LABS: Calcium 8.9 mg/dl (8.4-10.2); Chol/HDL Ratio 3.1 (1-3.5); Glucose 192 mg/dl (74-100); HDL Cholesterol 40 mg/dl (40-60)
[2023-04-17 18:13] LABS: Basophils % 0.2 % (0.1-2.0); Eosinophils # 0.1 K/mm3 (0.0-0.4); Eosinophils % 1.1 % (0.1-12.0); Hematocrit 30.4 % (37.0-47.0); Lymphocytes # 1.4 K/mm3 (0.7-4.5); Mean Corpuscular HGB Conc 29.5 g/dL (31.8-35.4); Mean Corpuscular Hemoglobin 23.1 pg (27.0-31.2); Mean Corpuscular Volume 78.4 fl (81-99); Mean Platelet Volume 8.8 fl (7.4-10.4); Monocytes # 0.3 K/mm3 (0.1-1.0); Monocytes % 3.3 % (1.7-9.3); Neutrophils # 7.5 K/mm3 (1.8-7.8); Neutrophils % 80.4 % (37.0-80.0); Platelet Count 321 K/mm3 (142-424); Red Blood Count 3.88 M/mm3 (4.20-5.40); Red Cell Distribution Width 17.8 % (11.5-17.5); White Blood Count 9.3 K/mm3 (4.8-10.8)
[2023-04-17 18:23] LABS: Direct LDL Cholesterol 62.98 mg/dL (100-129)
[2023-04-17 19:54] LABS: Hemoglobin A1C 7.3 % (4.0-6.0)
[2023-04-17 21:31] LABS: Blood Urea Nitrogen 21 mg/dl (7-17); Estimated Glomerular Filt Rate 55 ml/min (>60); GFR (African American) 67 ML/MIN (>60)
== END ==
PROVIDERS: PCP Family Medicine; Visit Provider Family Medicine
DX: I10 Essential (primary) hypertension (principal); J44.9 Chronic obstructive pulmonary disease, unspecified; R73.9 Hyperglycemia, unspecified
CPT/HCPCS: 80053; 80061; 83036; 84443; 85025

== ENCOUNTER → 2023-04-29 09:28 | Outpatient (CLI) | payer MEDICARE, SELFPAY ==
--- NOTE | 2023-04-29 09:34 | CT_ITS ---
FINAL REPORT TECHNIQUE: Axial CT images of the abdomen were obtained with IV contrast only. Coronal reformatted images were also obtained. This study was performed with techniques to keep radiation doses as low as reasonably achievable (ALARA). Individualized dose reduction techniques using automated exposure control or adjustment of mA and/or kV according to the patient''s size were employed. CLINICAL HISTORY: RUQ pain COMPARISON: 04/12/2021 FINDINGS: Right pleural scarring is present. The hypodense liver lesions noted on the prior CT examination are unchanged, most likely representing complex cysts as the density is somewhat greater than would be expected and simple cysts. The gallbladder has been surgically removed. There is no evidence of biliary ductal dilatation. The pancreas appears normal. Mild splenomegaly is unchanged since the prior CT of 2020. There is a left renal cyst which measures up to 3.3 cm in greatest diameter, which is unchanged since the prior CT. 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 There is no evidence of adenopathy. Previous gastric surgery has been performed with suture noted in the stomach. There is a supra umbilical anterior wall hernia which contains fat. No abnormal fluid collection is seen. No localized inflammatory processes identified. IMPRESSION: Multiple chronic changes in the abdomen as described, no acute process identified. Reviewed, Interpreted and Dictated by Ignacio Christensen MD Transcribed by Esther Dawkins Authenticated and . [facility]
== END ==
PROVIDERS: PCP Family Medicine; Visit Provider Family Medicine
DX: R10.11 Right upper quadrant pain (principal)
CPT/HCPCS: 74160; Q9967

== ENCOUNTER → 2023-09-10 08:42 | Outpatient (CLI) | payer MEDICARE, SELFPAY ==
[2023-09-10 18:30] LABS: Basophils % 0.2 % (0.1-2.0); Eosinophils # 0.1 K/mm3 (0.0-0.4); Eosinophils % 1.1 % (0.1-12.0); Hematocrit 33.8 % (37.0-47.0); Hemoglobin 10.6 g/dL (12.2-16.2); Lymphocytes # 1.6 K/mm3 (0.7-4.5); Lymphocytes % 15.5 % (10-50); Mean Corpuscular HGB Conc 31.3 g/dL (31.8-35.4); Mean Corpuscular Hemoglobin 24.8 pg (27.0-31.2); Mean Corpuscular Volume 79.3 fl (81-99); Mean Platelet Volume 8.7 fl (7.4-10.4); Monocytes # 0.4 K/mm3 (0.1-1.0); Neutrophils # 8.3 K/mm3 (1.8-7.8); Neutrophils % 79.2 % (37.0-80.0); Platelet Count 248 K/mm3 (142-424); Red Blood Count 4.26 M/mm3 (4.20-5.40); White Blood Count 10.5 K/mm3 (4.8-10.8)
[2023-09-10 20:08] LABS: Alanine Aminotransferase 25 U/L (12-78); Albumin Level 4.4 g/dl (3.5-5.0); Albumin/Globulin Ratio 1.6 (1.1-1.8); Alkaline Phosphatase 149 U/L (38-126); Aspartate Amino Transferase 27 U/L (14-36); Bilirubin,Total 0.6 mg/dl (0.2-1.3); Blood Urea Nitrogen 16 mg/dl (7-17); Calcium 8.6 mg/dl (8.4-10.2); Carbon Dioxide 30 mmol/L (22.0-30.0); Chloride 98 mmol/L (98-107); Estimated Glomerular Filt Rate 63 ml/min (>60); GFR (African American) 76 ML/MIN (>60); Globulin 2.7 g/dL (1.3-3.2); Glucose 124 mg/dl (74-100); Magnesium 1.8 mg/dl (1.6-2.3); Sodium 135 mmol/L (136-145); Total Protein,Serum 7.1 g/dl (6.3-8.2)
[2023-09-10 20:38] LABS: Thyroid Stimulating Hormone 0.89 uIU/mL (0.465-4.68)
[2023-09-10 21:19] LABS: Iron 41 ug/dL (37-170)
[2023-09-10 21:44] LABS: Total Iron Binding Capacity 496 ug/dL (265-497)
[2023-09-10 22:33] LABS: Hemoglobin A1C 6.7 % (4.0-6.0)
== END ==
PROVIDERS: PCP Family Medicine; Visit Provider Family Medicine
DX: Z00.00 Encounter for general adult medical examination without abnormal findings (principal); L98.9 Disorder of the skin and subcutaneous tissue, unspecified; Z79.899 Other long term (current) drug therapy; E11.9 Type 2 diabetes mellitus without complications; D64.9 Anemia, unspecified; D50.9 Iron deficiency anemia, unspecified
CPT/HCPCS: 80053; 83036; 83540; 83550; 83735; 84443; 85025

== ENCOUNTER 2024-04-26 10:18 | Outpatient (CLI) | payer MEDICARE, SELFPAY ==
--- NOTE | 2024-04-26 10:18 | MM_ITS ---
PROCEDURE INFORMATION: Exam: Bilateral Screening 3D Mammography Exam date and time: 04/26/2024 10:05 AM Age: 68 years old Clinical indication: Screening mammogram. TECHNIQUE: Imaging protocol: Bilateral Screening tomosynthesis and 2D mammography including computer-aided detection (CAD) when performed. COMPARISON: No relevant prior studies available. FINDINGS: MAMMOGRAPHY: Breast composition: There are scattered areas of fibroglandular density. Mass: 1.7 cm mass within the slightly lower slightly inner anterior right breast should be further assessed with spot views in CC/MLO projection. Ultrasound may also be required. Architectural distortion: No new or suspicious architectural distortion. Calcifications: No new or suspicious calcifications are present Asymmetric density: No new or suspicious asymmetric density is present Skin thickening: None. Axillary adenopathy: None. IMPRESSION: 1.7 cm mass within the slightly lower slightly inner anterior right breast should be further assessed with spot views in CC/MLO projection. Ultrasound may also be required. ASSESSMENT: BI-RADS category 0: Incomplete-need additional imaging evaluation and/or prior mammograms for comparison.
== END 2024-04-26 23:59 | disposition home or self-care (01) ==
LOC: RAD 10:18
PROVIDERS: PCP Family Medicine; Visit Provider Family Medicine
DX: Z12.31 Encounter for screening mammogram for malignant neoplasm of breast (principal)
CPT/HCPCS: 77063; 77067

== ENCOUNTER 2024-06-11 05:02 | Observation (INO) | payer MEDICARE, SELFPAY ==
[2024-06-11 05:04] VITALS: BP 128/53; PULSE 62; RESP 18; TEMP 36.4; O2SAT 94; BMI 40.4
[2024-06-11 05:07] VITALS: BMI 40.4
--- NOTE | 2024-06-11 05:07 | CT_ITS ---
PROCEDURE INFORMATION: Exam: CTA Neck With Contrast Exam date and time: 06/11/2024 5:54 AM Age: 68 years old Clinical indication: Dizziness and giddiness; Additional info: Dizziness, vomiting TECHNIQUE: Imaging protocol: Computed tomographic angiography of the neck with contrast. Exam focused on the cervical segments of the vasculature. 3D rendering (Not supervised by radiologist): MIP and/or 3D reconstructed images were created by the technologist. Radiation optimization: All CT scans at this facility use at least one of these dose optimization techniques: automated exposure control; mA and/or kV adjustment per patient size (includes targeted exams where dose is matched to clinical indication); or iterative reconstruction. Contrast material: ISOUVE 370; Contrast volume: 80 ml; Contrast route: INTRAVENOUS (IV); COMPARISON: CT ANGIO HEAD 06/11/2024 5:54 AM FINDINGS: Right common carotid artery: No stenosis. No dissection or occlusion. Right internal carotid artery: There is no significant stenosis or occlusion (0%). Right external carotid artery: No occlusion or stenosis of the origin. Left common carotid artery: No stenosis. No dissection or occlusion. Left internal carotid artery: There is no significant stenosis or occlusion (0%). Left external carotid artery: No occlusion or stenosis of the origin. Right vertebral artery: There is no significant stenosis or occlusion (0%). Left vertebral artery: There is no significant stenosis or occlusion (0%). 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 Salivary glands: Submandibular glands and parotid glands appear unremarkable. Thyroid: There is heterogeneous enhancement of the thyroid gland. Soft tissues: Normal. No significant soft tissue swelling. Bones/joints: The osseous structures of the cervical spine demonstrate no acute abnormalities. There is posterior disc osteophyte at C5-C6 level abutting the ventral aspect of the thecal sac. Lungs: There is a partially imaged 2.4 cm masslike lesion in the right upper lobe (image 1; series 3). IMPRESSION: 1. 2.4 cm masslike lesion in the right upper lobe, incompletely imaged. This could represent infection versus mass lesion. Further evaluation with CT chest with contrast is recommended. 2. No significant stenosis or occlusion in the vertebral arteries and carotid arteries in the neck. (0%). REFERENCES: NASCET CRITERIA. The degree of stenosis in the cervical segment of the internal carotid artery is based on NASCET criteria. Normal is no stenosis. Mild is less than 50% stenosis. Moderate is 50-69% stenosis. Severe is 70% to 99% stenosis. Total occlusion is no detectable patent lumen.
--- NOTE | 2024-06-11 05:07 | CT_ITS ---
PROCEDURE INFORMATION: Exam: CT Abdomen And Pelvis With Contrast Exam date and time: 06/11/2024 5:57 AM Age: 68 years old Clinical indication: Vomiting; Additional info: Vomiting, dark urine, back pain TECHNIQUE: Imaging protocol: Computed tomography of the abdomen and pelvis with contrast. Radiation optimization: All CT scans at this facility use at least one of these dose optimization techniques: automated exposure control; mA and/or kV adjustment per patient size (includes targeted exams where dose is matched to clinical indication); or iterative reconstruction. Contrast material: ISOVUE; Contrast volume: 70 ml; Contrast route: IV; COMPARISON: CT ABDOMEN W CON 04/29/2023 10:09 AM FINDINGS: Lungs: Mild scattered basilar scarring. Heart: Base of heart is unremarkable as visualized. Liver: Right hepatic lobe hypodensity with a somewhat nodular type appearance measuring 3.0 x 2.2 cm (series 3, image 20). Similar-appearing hypodensity the hepatic vein confluence posteriorly (series 3, image 22). Hepatic hypodensities are stable from 04/12/2021 and represent hemangiomas. Gallbladder and biliary ducts: Status post cholecystectomy. Pancreas: Normal. No ductal dilation. Spleen: Normal. No splenomegaly. Adrenal glands: Stable appearing right adrenal nodule with macroscopic fat. Kidneys and ureters: Delayed excretion of contrast within right renal collecting system. Right hydronephrosis is present asymmetric right perinephric stranding is noted. Right ureter is dilated to the mid aspect where there is a calcified urinary stone measuring to 4.9 mm in diameter (series 3, image 72). Benign left renal cyst. Stomach and bowel: Unremarkable. No obstruction. No mucosal thickening. Appendix: No evidence of appendicitis. Intraperitoneal space: Fat containing midline abdominal postsurgical change. Vasculature: Scattered [id number] calcified atherosclerotic disease of the visualized aorta and its major lower abdominal branches. Lymph nodes: Few prominent periaortic lymph nodes are noted. Urinary bladder: Lobulated hyperdense lesion with broad-based contact of the superior bladder wall is present and measures 1.4 x 2 point 3 x 0.0 cm (series 3 image 103; series 1001, image 50). Reproductive: Unremarkable as visualized. Bones/joints: Diffuse degenerative change of the visualized osseous structures. At least moderate spinal canal stenosis secondary to ossified posterior disc bulge at L1-L2. Soft tissues: Unremarkable. IMPRESSION: 1. Obstructing calcified urinary stone at the mid aspect of the right ureter with the above details. 2. Tumefactive hemorrhage versus superior bladder wall mass. Recommend urology consultation. 3. Additional nonacute/incidental findings as above. COMMENTS: Consistent with the [employer]'s Incidental Findings Committee white paper (J Am Sergio Radiol 2018): Any incidental renal lesion less than 1 cm or classified as too small to characterize, or any incidental cystic renal lesion characterized as simple-appearing, is likely benign. No follow-up imaging is recommended for these lesions per consensus recommendations based on imaging criteria.
--- NOTE | 2024-06-11 05:07 | CT_ITS ---
PROCEDURE INFORMATION: Exam: CTA Head With Contrast, Arteriography Exam date and time: 06/11/2024 5:54 AM Age: 68 years old Clinical indication: Dizziness and giddiness; Additional info: Dizziness, vomiting TECHNIQUE: Imaging protocol: Computed tomographic angiography of the head with contrast. Exam focused on the arteries. 3D rendering (Not supervised by radiologist): MIP and/or 3D reconstructed images were created by the technologist. Radiation optimization: All CT scans at this facility use at least one of these dose optimization techniques: automated exposure control; mA and/or kV adjustment per patient size (includes targeted exams where dose is matched to clinical indication); or iterative reconstruction. Contrast material: ISOUVE 370; Contrast volume: 80 ml; Contrast route: INTRAVENOUS (IV); COMPARISON: CT ANGIO HEAD 06/11/2024 5:54 AM FINDINGS: ANTERIOR CIRCULATION: Right internal carotid artery: Intracranial segment is patent with no significant stenosis or occlusion. No aneurysm. Right middle cerebral artery: No occlusion or significant stenosis. No aneurysm. Right anterior cerebral artery: No occlusion or significant stenosis. No aneurysm. Left internal carotid artery: Intracranial segment is patent with no significant stenosis or occlusion. No aneurysm. Left middle cerebral artery: No occlusion or significant stenosis. No aneurysm. Left anterior cerebral artery: No occlusion or significant stenosis. No aneurysm. POSTERIOR CIRCULATION: Right vertebral artery: No occlusion or significant stenosis. No aneurysm. Left vertebral artery: No occlusion or significant stenosis. No aneurysm. Basilar artery: No occlusion or significant stenosis. No aneurysm. Right posterior cerebral artery: No occlusion or significant stenosis. No aneurysm. Left posterior cerebral artery: No occlusion or significant stenosis. No aneurysm. Veins: Dural venous sinuses are patent. Brain: No definite mass, mass effect, or midline shift. Cerebral ventricles: No ventriculomegaly. Bones/joints: Unremarkable. No acute fracture. Soft tissues: Unremarkable. IMPRESSION: 1. [id number] is intact. 2. No evidence of dural venous sinus thrombosis.
--- NOTE | 2024-06-11 05:07 | CT_ITS ---
PROCEDURE INFORMATION: Exam: CT Head Without Contrast Exam date and time: 06/11/2024 5:40 AM Age: 68 years old Clinical indication: Dizziness; Additional info: Dizziness, vomiting TECHNIQUE: Imaging protocol: Computed tomography of the head without contrast. Radiation optimization: All CT scans at this facility use at least one of these dose optimization techniques: automated exposure control; mA and/or kV adjustment per patient size (includes targeted exams where dose is matched to clinical indication); or iterative reconstruction. COMPARISON: CT HEAD/BRAIN WO CON 09/15/2020 4:36 PM FINDINGS: Brain: There is moderate cerebral volume loss. There are [id number] periventricular white matter changes. Carreno-white matter differentiation and sulcation pattern is normal. There is normal density in the basal ganglia and thalamus. There is remote ischemic infarct in the right occipital lobe with focal encephalomalacia changes. There are focal encephalomalacia changes in the right frontotemporal region. There is no intracranial hemorrhage. Cerebral ventricles: There is mild ex vacuo dilation of the lateral ventricles and 3rd ventricle. Paranasal sinuses: Visualized sinuses are unremarkable. No fluid levels. Mastoid air cells: Visualized mastoid air cells are well aerated. Bones: Unremarkable. No acute fracture. Soft tissues: Unremarkable. IMPRESSION: 1. No acute intracranial pathology. Chronic small vessel ischemic disease changes with cerebral volume loss. 2. Remote ischemic infarcts with focal encephalomalacia in the right occipital lobe and right frontotemporal region.
[2024-06-11] MEDS: ONDANSETRON 4MG/2ML VIAL 4 MG IV (05:12)
[2024-06-11] MEDS: LACTATED RINGERS 1000ML 1,000 ML 999 ML IV (05:12)
[2024-06-11 05:17] LABS: Basophils # 0.1 K/mm3 (0-0.2); Basophils % 0.4 % (0.1-2.0); Eosinophils # 0.2 K/mm3 (0.0-0.4); Eosinophils % 1.9 % (0.1-12.0); Hematocrit 42.4 % (37.0-47.0); Hemoglobin 13.1 g/dL (12.2-16.2); Lymphocytes # 1.5 K/mm3 (0.7-4.5); Lymphocytes % 13.8 % (10-50); Mean Corpuscular Volume 99.9 fl (81-99); Mean Platelet Volume 7.9 fl (7.4-10.4); Monocytes # 0.5 K/mm3 (0.1-1.0); Monocytes % 4.7 % (1.7-9.3); Neutrophils # 8.6 K/mm3 (1.8-7.8); Neutrophils % 79.2 % (37.0-80.0); Platelet Count 221 K/mm3 (142-424); Red Blood Count 4.24 M/mm3 (4.20-5.40); White Blood Count 10.9 K/mm3 (4.8-10.8)
[2024-06-11 05:18] LABS: Chloride 103 mmol/L (98-107)
[2024-06-11 05:19] LABS: Albumin Level 4.3 g/dl (3.5-5.0); Potassium 3.6 mmoL/L (3.5-5.1); Sodium 138 mmol/L (136-145)
--- NOTE | 2024-06-11 05:19 | XR_ITS ---
PROCEDURE INFORMATION: Exam: XR Chest Exam date and time: 06/11/2024 5:55 AM Age: 68 years old Clinical indication: Wheezing; Additional info: Wheeze, dizziness TECHNIQUE: Imaging protocol: Radiologic exam of the chest. Views: 1 view. COMPARISON: CT CHEST WO CON 04/14/2021 11:57 AM FINDINGS: Lungs: New masslike opacity right upper lobe measuring about 2.8 x 2.7 cm. Redemonstrated right hilar lymph node calcifications. Pleural spaces: Unremarkable. No pleural effusion. No pneumothorax. Heart/Mediastinum: Unremarkable. No cardiomegaly. Diaphragm: Redemonstrated right hemidiaphragm eventration. Bones/joints: Diffuse degenerative change of the visualized osseous structures. IMPRESSION: Masslike opacity in the right upper lobe as above. Recommend CT of the chest for further assessment.
--- NOTE | 2024-06-11 05:19 | ECG_ITS ---
APPROVED REPORT Exam: Resting ECG HR:61 bpm ECG Measurements Heart Rate 61 AXES KS 164 P -24 QRSd 94 QRS 48 QT 416 T 24 QTc 420 Conclusion Sinus rhythm Incomplete right bundle branch block Inferior Q waves Electronically signed by : PAMELA DELAROSA, 06/12/2024 20:09:12
[2024-06-11 05:22] LABS: Alanine Aminotransferase 31 U/L (12-78); Albumin/Globulin Ratio 1.7 (1.1-1.8); Alkaline Phosphatase 136 U/L (38-126); Anion Gap 7.6 mEq/L (5-15); Aspartate Amino Transferase 30 U/L (14-36); Bilirubin,Total 0.7 mg/dl (0.2-1.3); Blood Urea Nitrogen 25 mg/dl (7-17); Calcium 8.8 mg/dl (8.4-10.2); Carbon Dioxide 31 mmol/L (22.0-30.0); Creatinine Clearance Estimated 89 mL/min (50-200); Estimated Glomerular Filt Rate 55 ml/min (>60); GFR (African American) 67 ML/MIN (>60); Globulin 2.6 g/dL (1.3-3.2); Glucose 159 mg/dl (74-100); Lipase 132 U/L (23-300); Total Protein,Serum 6.9 g/dl (6.3-8.2)
[2024-06-11 05:23] LABS: INR 1.07 (0.9-1.1); Prothrombin Time 11.9 seconds (10.1-12.5)
[2024-06-11] MEDS: MECLIZINE 25MG TABLET 25 MG PO (05:23)
[2024-06-11 05:42] LABS: Microscopic, Urine URINE MICROSCOPIC (MICROSCOPIC)
[2024-06-11 05:48] LABS: Blood, Urine 3+ (Negative); Glucose,Urine (UA) TRACE (Negative); Ketones,Urine TRACE (Negative); Leukocyte Esterase,Urine TRACE (Negative); Nitrate,Urine Negative (Negative); Protein,Urine 2+ (Negative); Specific Gravity, Urine >= 1.030 (1.005-1.030)
[2024-06-11 05:57] LABS: Appearance,Urine Cloudy (Clear); Bilirubin,Urine 1+ (Negative); Color,Urine Dark Yellow (Yellow)
[2024-06-11] MEDS: IOPAMIDOL-370 (76%);100ML BOTTLE 150 ML IV (06:05)
[2024-06-11] MEDS: 0.9 % SODIUM CHLORIDE 50 ML VIAL IV (06:05)
[2024-06-11] MEDS: SODIUM CHLORIDE 0.9% 10ML SYR (RAD ONLY) 10 ML IV (06:05)
--- NOTE | 2024-06-11 06:09 | ED_ITS ---
Discharge Plan Disposition Patient Disposition: Admitted Prescriptions Prescriptions: No Action albuterol sulfate 90 mcg/actuation HFA aerosol inhaler 1 puff INHALATION QIDP PRN (Reason: Shortness Of Breath Or Wheezing) Qty: 8.5 10RF atorvastatin 80 mg tablet 80 mg PO HS Qty: 90 5RF bisoprolol fumarate 5 mg tablet See Rx Instructions .ROUTE .COMPLEX Qty: 90 10RF Dose Instruction: TAKE 1 TABLET EVERY DAY Rx Instructions: TAKE 1 TABLET EVERY DAY ipratropium-albuterol 0.5 mg-3 mg(2.5 mg base)/3 mL solution for nebulization 3 ml INHALATION QIDP PRN (Reason: copd) Qty: 180 12RF omeprazole 40 mg capsule,delayed release(DR/EC) 40 mg PO DAILY Qty: 90 5RF spironolactone 50 mg tablet See Rx Instructions .ROUTE .COMPLEX Qty: 90 3RF Dose Instruction: TAKE 1 TABLET EVERY DAY Rx Instructions: TAKE 1 TABLET EVERY DAY Ozempic 0.25 mg or 0.5 mg(2 mg/1.5 mL) pen injector 0.25 mg SQ WEEKLY Qty: 1.5 12RF Rx Instructions: for 4 doses (DME) FreeStyle Diana 14 Day [place] [facility] [place] Instructions .Route Qty: 1 0RF Rx Instructions: As directed torsemide 20 mg tablet See Rx Instructions .ROUTE .COMPLEX Qty: 90 3RF Dose Instruction: TAKE 1 TABLET EVERY DAY NEEDED FOR EDEMA Rx Instructions: TAKE 1 TABLET EVERY DAY NEEDED FOR EDEMA sennosides [Senna Laxative] 8.6 mg tablet See Rx Instructions .ROUTE .COMPLEX Qty: 30 11RF Dose Instruction: TAKE 1 TABLET EVERY DAY NEEDED FOR CONSTIPATION Rx Instructions: TAKE 1 TABLET EVERY DAY NEEDED FOR CONSTIPATION aspirin 81 mg tablet,delayed release (DR/EC) See Rx Instructions .ROUTE .COMPLEX Qty: 90 3RF Dose Instruction: TAKE 1 TABLET EVERY DAY FOR HEART DISEASE Rx Instructions: TAKE 1 TABLET EVERY DAY FOR HEART DISEASE apixaban 5 mg tablet 5 mg PO BID Qty: 180 3RF azelastine 137 MCG/0.137 ML bottle 1 spray INTRANASAL BID Rx Instructions: administer into each nostril Fiasp U-100 Insulin 100 unit/mL solution See Rx Instructions .ROUTE .COMPLEX Rx Instructions: INJECT 80 UNITS SUBCUTANEOUSLY EVERY DAY PER OMNIPOD DIRECTED Referrals Follow up/Referrals: Provider,Referral, MD [Referring] - See instructions Clinical Impressions Clinical Impression: Hematuria, UTI (urinary tract infection), Hydronephrosis, Lung mass, Bladder mass, Calculus of right ureter, Dizziness, Nausea & vomiting Instructions Patient Instructions: DI for Low Back Pain, DI for Acute Abdominal Pain Print Language Print Language: [place] Island[place] Discharge ED Provider: Rubin Lawler General Adult HPI General Chief complaint: Abdominal Pain Stated complaint: low back pain,low abd pain Time Seen by Provider: 06/11/24 05:07 Mode of Arrival: EMS Source of Information: Patient Limitations: No Limitations Description of Symptoms (Recalled from ER Triage Doc. by RN): Pt reports to ED via EMS with cc of lower back and abd pain. Pt also states having dark lisa color urine. Pt states the back and abd pain started tonight pain. Pt is also having nasuea and vomitting. Pt states the she noticed the urine discoloration approx 2 days. History of Present Illness HPI narrative: 68-year-old female with a history of previous CVA, COPD, diabetes, lung cancer with right lower lobe resection approximately 5 years ago reportedly cancer free since that time presents to the ER with complaints of back pain abdominal pain starting tonight. Patient states she has low back pain that seems to radiate to both sides, however it is worse on the right and radiates to the right front area. Patient also states she noticed dark-colored urine describing it as rust colored. She states her symptoms were unmanageable tonight with the pain so she called EMS. Around the time she called EMS, she started having spinning type sensation dizziness with nausea. She had emesis in the ambulance. Patient does report a history of vertigo treated with meclizine but states she has not been on this medication for more than a year and has been asymptomatic. She states this does feel identical to her previous vertigo. Patient was left with mild left-sided deficits after prior stroke. She states she is not having any new numbness, tingling, or weakness. She has been afebrile. Denies chest pain or shortness of breath. Related Data Home Medications ?Medication ?Instructions ?Recorded ?Confirmed azelastine 137 mcg (0.1 %) nasal 1 spray intranasal BID Allergy 04/12/21 02/10/24 spray symptoms insulin aspart (niacinamide) See Rx Instructions .Route 07/04/22 02/10/24 (U-100) 100 unit/mL subcutaneous .COMPLEX Diabetes solution (Fiasp U-100 Insulin) Previous Rx's ?Medication ?Instructions ?Recorded semaglutide 0.25 mg or 0.5 mg (2 0.25 mg (0.187 mL) SQ WEEKLY #1.5 08/26/22 mg/1.5 mL) subcutaneous pen mL injector ([employer]) flash glucose scanning reader #1 ea 09/24/22 ([employer] Diana 14 Day [place]) albuterol sulfate 90 mcg/actuation 1 puff inhalation QIDP PRN 09/10/23 aerosol inhaler Shortness Of Breath Or Wheezing #8.5 grams atorvastatin 80 mg tablet 80 mg PO HS Cholesterol #90 tabs 09/10/23 bisoprolol fumarate 5 mg tablet See Rx Instructions .Route 09/10/23 .COMPLEX #90 tabs ipratropium 0.5 mg-albuterol 3 mg 3 ml inhalation QIDP PRN copd #180 09/10/23 (2.5 mg base)/3 mL nebulization mL soln omeprazole 40 mg capsule,delayed 40 mg PO DAILY ACID REFLUX #90 caps 09/10/23 release spironolactone 50 mg tablet See Rx Instructions .Route 09/10/23 .COMPLEX #90 tabs torsemide 20 mg tablet See Rx Instructions .Route 11/13/23 .COMPLEX #90 tabs aspirin 81 mg tablet,delayed See Rx Instructions .Route 12/14/23 release .COMPLEX #90 tabs sennosides 8.6 mg tablet (Senna See Rx Instructions .Route 12/14/23 Laxative) .COMPLEX #30 tabs apixaban 5 mg tablet 5 mg PO BID Blood thinner #180 tabs 03/07/24 Allergies Allergy/AdvReac Type Severity Reaction Status Date / Time diclofenac Allergy Unknown Verified 02/10/24 15:24 allergy reaction [facility] Disclaimer: The information contained in this section may have been updated after the patient was seen, as this information can be updated by other users. Medical History COPD (chronic obstructive pulmonary disease) Lung cancer CVA (cerebral vascular accident) HLD (hyperlipidemia) HTN (hypertension) Diabetes mellitus, type 2 CHF (congestive heart failure) Dyspnea Surgical History H/O tubal ligation Status post partial removal of lung Hx of cholecystectomy Hx of tonsillectomy Family History Other Family history of atrial fibrillation Family history of cancer Social History Smoking Status: Former smoker tobacco type: cigarettes packs per day: 1 second hand exposure: Yes alcohol intake: former substance use type: former substance user, marijuana and crack/cocaine current occupational status: unemployed Travel in the last 8 weeks: Inside the [place] household members: spouse housing: house current occupational exposures/hazards: No caffeine: Yes ROS Obtained: Yes All systems reviewed & no additional complaints except as documented Positive ROS per HPI Physical Exam General General appearance: alert, in no apparent distress and obese Comment: Chronically ill-appearing Head Head exam: atraumatic and normocephalic Eye Eye exam: Present PERRL and EOMI; Absent nystagmus ENT ENT exam: Present mucous membranes moist Neck Neck exam: Present normal inspection and full ROM (Patient has worsening dizziness with movement of the head bilaterally) Chest Chest inspection: Present symmetric chest wall rise; Absent tenderness Respiratory Respiratory exam: Present normal lung sounds bilaterally and wheezes (Bilaterally); Absent respiratory distress or stridor Cardiovascular Cardiovascular exam: Present regular rate and normal rhythm Abdominal Exam Abdominal exam: Present soft and tenderness (Right lower quadrant); Absent distention, guarding or rebound Extremities Exam Extremities exam: Present full ROM and other (Venous stasis changes of the bilateral distal lower extremities); Absent edema Back Exam Back exam: Present CVA tenderness (R) and other (Diffuse low back tenderness without findings of trauma); Absent CVA tenderness (L) Neurological Exam Neurological exam: Present alert, oriented X3, CN II-XII intact and motor sensory deficit (Mild sensory deficit in the left arm which is at baseline according to the patient. No other deficits.) Psychiatric Psychiatric exam: Present normal affect and normal mood Skin Skin exam: Present warm and dry Medical Decision Making Medical Records Medical records reviewed: Yes I reviewed the patient's medical records. MR Comment: Patient follows with cardiology for CHF, saw Dr. Zhang in February for COPD, followed with OB for postmenopausal bleeding with numerous polypoid lesions removed from the uterus and a procedure in June 2022. There is also urology note that demonstrates patient had bladder cancer with tumor resection. Tj Inquiry Pt receiving controlled substance: No Vital Signs: 06/11/24 05:04 Temperature 97.6 F Temperature Source Oral Pulse Rate [Left Radial] 62 Respiratory Rate 18 Blood Pressure [Right Arm] 128/53 L Blood Pressure Mean [Right Arm] 78 Blood Pressure Source [Right Arm] Automatic Cuff 02 Sat by Pulse Oximetry 94 L Oxygen Delivery Method Room Air Lab Data Lab Results 06/11/24 05:02: WBC 10.9 H, RBC 4.24, Hgb 13.1, Hct 42.4, MCV 99.9 H, MCH 31.0, MCHC 31.0 L, RDW 15.0, Plt Count 221, MPV 7.9, Neut % (Auto) 79.2, Lymph % (Auto) 13.8, [place] % (Auto) 4.7, Eos % (Auto) 1.9, Baso % (Auto) 0.4, Neut # (Auto) 8.6 H, Lymph # (Auto) 1.5, [place] # (Auto) 0.5, Eos # (Auto) 0.2, Baso # (Auto) 0.1, PT 11.9, INR 1.07, Sodium 138, Potassium 3.6, Chloride 103, Carbon Dioxide 31 H, Anion Gap 7.6, BUN 25 H, Creatinine 1.00, Estimated Creat Clear 89, Estimated GFR 55 L, Est GFR ( Amer) 67, Glucose 159 H, Calcium 8.8, Total Bilirubin 0.7, AST 30, ALT 31, Alkaline Phosphatase 136 H, Total Protein 6.9, Albumin 4.3, Globulin 2.6, Albumin/Globulin Ratio 1.7, Lipase 132 06/11/24 05:19: Troponin I < 0.01 06/11/24 05:33: Urine Color Dark yellow, Urine Appearance Cloudy, Urine pH 6.0, Ur Specific [place] >= 1.030, Urine Protein 2+ A, Urine Glucose (UA) Trace, Urine Ketones Trace, Urine Blood 3+ A, Urine Nitrate Negative, Urine Bilirubin 1+ A, Urine Urobilinogen 2.0, Ur Leukocyte Esterase Trace, Urine RBC 10-20, Urine WBC 20-50, Ur Squamous Epith Cells 5-10, Urine Bacteria Trace 06/11/24 06:26: Lactate 1.2 06/11/24 05:02 06/11/24 05:02 Orders (Tests/Meds): ED MEDICATIONS Generic Name Dose Route Start Last Admin Trade Name Freq PRN Reason Stop Dose Admin Hydromorphone HCl 0.5 mg 06/11/24 07:28 Hydromorphone 2mg/Ml Syringe IV 07/11/24 07:27 Q2HP PRN Severe Pain (7-10) Sodium Chloride 10 ml 06/11/24 06:03 06/11/24 06:05 Sodium Chloride 0.9% 10ml Syr (Rad Only) IV 07/11/24 06:02 10 ml NEEDED PRN Administration Maintain IV Site Discontinued Medications Generic Name Dose Route Start Last Admin Trade Name Freq PRN Reason Stop Dose Admin Hydromorphone HCl 0.5 mg 06/11/24 06:37 06/11/24 06:46 Hydromorphone 2mg/Ml Syringe IV 06/11/24 06:38 0.5 mg ONCE ONE Administration Lactated Ringer's 1,000 mls @ 999 mls/hr 06/11/24 05:08 06/11/24 05:12 Lactated Ringer's 1000 Ml Bag IV 06/11/24 06:08 999 mls/hr .Q1H1M ONE Administration Ceftriaxone Sodium 1 gm/ 50 mls @ 100 mls/hr 06/11/24 06:41 06/11/24 06:46 Sodium Chloride IV 06/11/24 07:10 100 mls/hr ONCE ONE Administration Iopamidol 150 ml 06/11/24 06:03 06/11/24 06:05 Iopamidol-370 (76%);100ml Bottle IV 06/11/24 06:04 150 ml ONCE ONE Administration Ketorolac Tromethamine 15 mg 06/11/24 06:38 06/11/24 06:46 Ketorolac 30mg/Ml Vial IV 06/11/24 06:39 15 mg ONCE ONE Administration Meclizine HCl 25 mg 06/11/24 05:19 06/11/24 05:23 Meclizine 25mg Tablet PO 06/11/24 05:20 25 mg ONCE ONE Administration Ondansetron HCl 4 mg 06/11/24 05:09 06/11/24 05:12 Ondansetron 4mg/2ml Vial IV 06/11/24 05:10 4 mg ONCE ONE Administration Sodium Chloride 50 ml 06/11/24 06:03 06/11/24 06:05 0.9 % Sodium Chloride 50 Ml Vial IV 06/11/24 06:04 50 ml ONCE ONE Administration ORDERS Category Date Time Status CT abdomen pelvis w con Stat Cat Scan 06/11/24 05:[address] angio head Stat Cat Scan 06/11/24 05:[address] angio neck Stat Cat Scan 06/11/24 05:[address] head/brain wo con Stat Cat Scan 06/11/24 05:07 Completed CXR --portable [XR chest portable] Stat Exams 06/11/24 05:19 Completed CBC w/Auto Diff [Complete Blood Count Auto Diff] Stat Lab 06/11/24 05:02 Completed CMP [Comprehensive Metabolic Panel] Stat Lab 06/11/24 05:02 Completed Lactic Acid Stat Lab 06/11/24 06:26 Completed Lipase Stat Lab 06/11/24 05:02 Completed PT INR [Prothrombin Time INR] Stat Lab 06/11/24 05:02 Completed Trop I [Troponin I] Stat Lab 06/11/24 05:19 Completed Troponin I Q3H Lab 06/11/24 08:30 Ordered Troponin I Q3H Lab 06/11/24 11:30 Ordered Urinalysis and Microscopic Stat Lab 06/11/24 05:33 Completed Urine Culture Stat Micro 06/11/24 05:33 Received Medical Decision Narrative: In summary, this 68-year-old female presents to the emergency department today with low back pain radiating to the right lower quadrant, dark urine, dizziness, nausea, vomiting. On initial evaluation patient is hemodynamically stable, afebrile, GCS 15, patient does have slight sensory deficit in the left upper extremity but this is at baseline since patient's previous CVA, patient has tenderness of her right flank, right lower quadrant. Differential diagnosis includes but is not limited to intracranial bleed, mass, I considered possibility of stroke but have lower suspicion for this and patient has NIH of 1 is at baseline, vertigo, electrolyte abnormality, kidney stone, urinary tract infection, pyelonephritis, appendicitis, neoplasm, among others. Based on these concerns, I ordered broad workup including serum labs, CT imaging of the head, vasculature of the head and neck, and abdomen, urine studies. ECG personally interpreted demonstrates normal sinus rhythm, rate 61, normal axis, normal SC and QTc no STEMI. Patient received IV fluids, Zofran, meclizine for treatment. Labs personally reviewed demonstrate mild leukocytosis, no anemia, normal platelets, normal PT/INR, CMP with prerenal azotemia, no actionable electrolyte abnormalities, initial troponin undetectably low at less than 0.01, lipase normal at 132, UA with blood and elevated bilirubin, 20-50 WBCs, trace bacteria. Since this is a catheter sample, I am concerned for infected stone. Patient receiving Rocephin Chest x-ray personally interpreted does abnormality of the right upper lobe concerning for mass, see radiology read for final interpretation. CT head personally interpreted does not demonstrate acute intracranial bleed, mass, or midline shift, patient does have findings consistent with her previously described CVA. See radiology read for final interpretation. CT angiography without acute abnormality. CT abdomen pelvis on my personal interpretation demonstrates obstructing right ureteral stone with hydronephrosis as well as abnormalities in the liver, possibly masses or hemangioma. See radiology read for final interpretation. Radiology read does mention mass in the bladder concerning for recurrent bladder cancer given patient's previous history. Liver lesions are believed to be hemangioma. On reassessment patient continues having pain despite having received Dilaudid and Toradol. Additional pain medications have been ordered for the patient. She states at this time without significant improvement of her symptoms she does not feel comfortable going home at this time and believes she would have to come right back to the hospital given the current level of her symptoms. I believe admission is appropriate at this time. I had an interactive discussion with Dr. Jones with urology at [facility], he stated from urologic standpoint patient could be managed outpatient since she is not systemically ill despite having findings of infected stone, however patient still requires admission due to intractability of pain, vomiting, among her other abnormalities on workup. He did accept the patient as a consult. I spoke with Cierra Walker with the [facility] hospitalist service who accepted the patient to their wait list for telemetry admission when a bed is available. I discussed this with the patient, she would prefer to go to [facility] if possible because that is where she had her most recent cancer surgery. They are being called at this time. I spoke with Dr. Scott with urology who is willing to be part of the patient's consulting team during an admission to [facility] but is recommending a medical admission given patient's multiple comorbidities as well as abnormal findings today with lesions concerning for malignancy in both the bladder and lung. I discussed this case with Dr. Foss with use the hospitalist service. Patient also accepted for direct bed there but is on the wait list since they are currently full. At this time it is most appropriate for patient to be admitted to our facility for continued management of pain, nausea until a bed is available at one of the accepting facilities. Patient comfortable with this plan. I discussed this case with the hospitalist who accepted the patient for admission until bed availability at outside facility. Critical Care Critical Care Time Critical Care Time: No
[2024-06-11 06:10] LABS: Troponin I < 0.01 ng/ml (0.00-0.034)
[2024-06-11 06:37] LABS: WBC,Urine 20-50 #/hpf (0-3)
[2024-06-11 06:38] LABS: Bacteria,Urine Trace /lpf
[2024-06-11 06:40] LABS: Lactic Acid 1.2 mmol/L (0.7-2.1)
[2024-06-11] MEDS: KETOROLAC 30MG/ML VIAL 15 MG IV (06:46)
[2024-06-11] MEDS: CEFTRIAXONE SODIUM 1 GM in 0.9 % SODIUM CHLORIDE 50 ML IV ×2 (06:46→17:42)
[2024-06-11] MEDS: HYDROMORPHONE 2MG/ML SYRINGE 0.5 MG IV ×3 (06:46→20:00)
--- NOTE | 2024-06-11 07:14 | PC.NURSE ---
called [facility] about a possible transfer, they are going to give us a call back as soon as they get a provider.
--- NOTE | 2024-06-11 07:43 | PC.NURSE ---
Called [facility] for possible transfer of the pt per request by the pt. Dr Lawler is speaking to Dr Scott with urology now. CR
--- NOTE | 2024-06-11 08:28 | PC.NURSE ---
Dr. Lawler s/w Dr Connell for admission. House notified and bed request placed.
--- NOTE | 2024-06-11 08:50 | PC.NURSE ---
nuclear powerplant supervisor called ER staff to state Dr. Connell would not be accepting this pt. Dr. Oden called Dr. Connell and s/w him, stating I don't know why the house servant is saying this . Dr. Oden asked us to call nuclear powerplant supervisor back.
--- NOTE | 2024-06-11 09:30 | PC.NURSE ---
Dr. Oedn s/w Dr. Connell again, he states I don't know what the issue is, I talked to Dr. Lawler earlier and told her I would take the pt .
--- NOTE | 2024-06-11 09:46 | PC.NURSE ---
Addendum entered by Gloria Peace RN 06/11/24 10:58: Per ÁNGELA Kelsey she is awaiting admission orders from Dr. Allen in order for patient to be transferred to Med Surg. Dr. Allen made aware of need for orders by Dr. Oden. Original Note: Report called to ÁNGELA Kelsey.
--- NOTE | 2024-06-11 10:00 | PC.NURSE ---
Dr. Oden s/w Dr. Connell regarding admission, he states I'm still waiting on a bed to open up . Dr. Oden let him know the pt has a bed in the computer and staff states they are waiting on orders. Dr. Connell still reports he is waiting on a bed. House made aware of the update to this situation.
--- NOTE | 2024-06-11 10:40 | PC.NURSE ---
Called cutting and splicing supervisor to obtain update on pt going to med/surg floor as Admission orders placed by Dr. Connell at [phone]. States she will check on this.
--- NOTE | 2024-06-11 10:48 | PC.NURSE ---
[facility] to transfer up to [facility]
[2024-06-11 10:52] VITALS: BP 128/50; PULSE 72; RESP 16; TEMP 36.7; O2SAT 94
[2024-06-11 10:59] VITALS: BP 100/56; PULSE 57; RESP 20; TEMP 37.1; O2SAT 94
[2024-06-11 11:01] VITALS: BMI 40.4
--- NOTE | 2024-06-11 11:34 | HMH.PHAINT1 ---
Pharmacy Intervention Comments: MEDICATION RECONCILIATION COMPLETED ON PATIENT USING EXTERNAL FILL HISTORY FROM PHARMACY. -AYLIN ESTEBAN, VICTORINOD
[2024-06-11 12:07] VITALS: PULSE 60
[2024-06-11 16:00] VITALS: BP 110/57; PULSE 55; RESP 20; TEMP 36.5; O2SAT 100
--- NOTE | 2024-06-11 16:57 | EXP.HP ---
History of Present Illness *Admission Date: 06/11/24 *Reason for visit:: Abdominal pain *History of present illness: This is a 68-year-old female that presents to [facility] emergency department with concerns of abdominal pain that has been intermittent for several days and has crescendoed over the last 24 hours. She describes a constant ache to her left abdominal side that radiates to her flank. She reports associated piercing pain characterized as a 10 on a 1-10 pain scale with associated nausea and vomiting. She has identified hematuria over the last 48 hours with no associated vaginal discharge or vaginal bleeding. She reports some dysuria and urinary hesitancy. She reports a chronic history of diabetes, previous stroke, hypertension, diastolic congestive heart failure and lung cancer. In the ED a CT of the abdomen identified a right mid ureter stone 4.9 cm with associated right hydronephrosis and bladder wall mass. A chest x-ray was concerning for a right upper lobe mass 2.8 x 2.7 cm. She was administered fluid resuscitation and IV antibiotic. ED provider discussed with the patient the lack of urological services at our [facility]. ED attempted to transfer the patient to [place] for higher level of care and the patient declined. She requested that her care be transitioned to the [facility] where she was placed on a wait list until bed becomes available. We were asked to admit the patient until transition of care occurs. We discussed her stable vital signs, her improved symptomatology and desire to have something to eat. The patient is awaiting transition of care for higher level of care concerning urological services. [facility] Medical History COPD (chronic obstructive pulmonary disease) Lung cancer CVA (cerebral vascular accident) HLD (hyperlipidemia) HTN (hypertension) Diabetes mellitus, type 2 CHF (congestive heart failure) Dyspnea Surgical History H/O tubal ligation Status post partial removal of lung Hx of cholecystectomy Hx of tonsillectomy Family History Other Family history of atrial fibrillation Family history of cancer Social History (Updated 06/11/24 @ 11:25 by Laila Day RN) Smoking Status: Former smoker tobacco type: cigarettes packs per day: 1 second hand exposure: Yes alcohol intake: former substance use type: former substance user, marijuana and crack/cocaine current occupational status: unemployed Travel in the last 8 weeks: Inside the [place] household members: spouse housing: house current occupational exposures/hazards: No caffeine: Yes Review of Systems Review of Systems Review of systems:: pertinent systems reviewed and negative unless documented below Meds Home Medications and Allergies Home Medications ?Medication ?Instructions ?Recorded ?Confirmed ?Type insulin aspart (niacinamide) 0 sliding scale dose SQ AC 07/04/22 06/11/24 History (U-100) 100 unit/mL subcutaneous solution (Fiasp U-100 Insulin) flash glucose scanning reader #1 ea 09/24/22 06/11/24 Rx ([employer] 14 Day [place]) albuterol sulfate 90 mcg/actuation 1 puff inhalation QIDP PRN 09/10/23 06/11/24 Rx aerosol inhaler Shortness Of Breath Or Wheezing #8.5 grams apixaban 5 mg tablet 5 mg PO BID 06/11/24 06/11/24 History aspirin 81 mg tablet,delayed 81 mg PO DAILY 06/11/24 06/11/24 History release atorvastatin 80 mg tablet 80 mg PO HS 06/11/24 06/11/24 History bisoprolol fumarate 5 mg tablet 5 mg PO DAILY 06/11/24 06/11/24 History dulaglutide 0.75 mg/0.5 mL 0.75 mg SQ WEEKLY 06/11/24 06/11/24 History subcutaneous pen injector (Trulicity) omeprazole 40 mg capsule,delayed 40 mg PO DAILY 06/11/24 06/11/24 History release sennosides 8.6 mg tablet (Senna 8.6 mg PO DAILYP PRN Constipation 06/11/24 06/11/24 History Laxative) spironolactone 50 mg tablet 50 mg PO DAILY 06/11/24 06/11/24 History torsemide 20 mg tablet 20 mg PO DAILY 06/11/24 06/11/24 History New Prescriptions to Start Prescriptions: Allergies Allergy/AdvReac Type Severity Reaction Status Date / Time diclofenac Allergy Unknown Verified 02/10/24 15:24 allergy reaction Exam Data for Last 24 hours Vital signs and Labs for Last 24 Hours: Temp Pulse Resp BP Pulse Ox O2 Del Method 98.7 F 60 20 100/56 L 94 L Room Air 06/11/24 10:59 06/11/24 12:07 06/11/24 10:59 06/11/24 10:59 06/11/24 10:59 06/11/24 14:44 Laboratory Results - last 24 hr 06/11/24 05:02: WBC 10.9 H, RBC 4.24, Hgb 13.1, Hct 42.4, MCV 99.9 H, MCH 31.0, MCHC 31.0 L, RDW 15.0, Plt Count 221, MPV 7.9, Neut % (Auto) 79.2, Lymph % (Auto) 13.8, [place] % (Auto) 4.7, Eos % (Auto) 1.9, Baso % (Auto) 0.4, Neut # (Auto) 8.6 H, Lymph # (Auto) 1.5, [place] # (Auto) 0.5, Eos # (Auto) 0.2, Baso # (Auto) 0.1, PT 11.9, INR 1.07, Sodium 138, Potassium 3.6, Chloride 103, Carbon Dioxide 31 H, Anion Gap 7.6, BUN 25 H, Creatinine 1.00, Estimated Creat Clear 89, Estimated GFR 55 L, Est GFR ( Amer) 67, Glucose 159 H, Calcium 8.8, Total Bilirubin 0.7, AST 30, ALT 31, Alkaline Phosphatase 136 H, Total Protein 6.9, Albumin 4.3, Globulin 2.6, Albumin/Globulin Ratio 1.7, Lipase 132 06/11/24 05:19: Troponin I < 0.01 06/11/24 05:33: Urine Color Dark yellow, Urine Appearance Cloudy, Urine pH 6.0, Ur Specific Tibbie >= 1.030, Urine Protein 2+ A, Urine Glucose (UA) Trace, Urine Ketones Trace, Urine Blood 3+ A, Urine Nitrate Negative, Urine Bilirubin 1+ A, Urine Urobilinogen 2.0, Ur Leukocyte Esterase Trace, Urine RBC 10-20, Urine WBC 20-50, Ur Squamous Epith Cells 5-10, Urine Bacteria Trace 06/11/24 06:26: Lactate 1.2 I & O for Last 24 hours: Intake & Output 06/08/24 06/09/24 06/10/24 06/11/24 23:59 23:59 23:59 23:59 Weight 103.589 kg Constitutional Constitutional: no acute distress, morbidly obese, chronically ill appearing and cooperative *Routine HEENT Exam Head: Present normocephalic and atraumatic Eye: Present EOMI and PERRL ENT: Present mucous membranes moist *Routine Neck Exam Neck: Absent JVD or lymphadenopathy *Routine Respiratory Exam Respiratory: Present rhonchi, normal respiratory effort and symmetric chest movement; Absent respiratory distress *Routine Cardiovascular Exam Cardiovascular: Present RRR *Routine Abdominal Exam Abdominal: Present soft, normoactive bowel sounds and tenderness *Routine Rectal Exam Rectal:: deferred *Routine Genitalia Exam Genitalia:: deferred *Routine Extremities Exam Extremities: Present edema *Routine Skin Exam Skin: Present warm; Absent rash *Routine Neurological Exam Neurological: Present alert, oriented X3, moving all extremities, vision grossly intact, hearing grossly intact and normal speech; Absent sensory deficit or motor deficit Routine Psychiatric Exam Psychiatric: Present normal affect, cooperative and good insight Assessment and Plan *Assessment and plan (1) Obstructive uropathy: Status: Acute Category: Medical Code(s): N13.9 - Obstructive and reflux uropathy, unspecified (2) Calculus of right ureter: Status: Acute Category: Medical Code(s): N20.1 - Calculus of ureter (3) Hydronephrosis: Status: Acute Category: Medical Code(s): N13.30 - Unspecified hydronephrosis (4) UTI (urinary tract infection): Status: Acute Category: Medical Code(s): N39.0 - Urinary tract infection, site not specified Plan This is a 68-year-old female that presents to [facility] emergency department with colicky abdominal pain and found to have obstructive uropathy with identified mid right ureteral calculus, hydronephrosis, bladder mass and UTI. She was informed by the ED that her care needed to be transitioned for higher level of care with no urological services at our facility. She declined transition of care to [place] and requested to be transitioned to the [facility]. She was placed on a wait list and we communicated with the [facility] and currently no beds are available. I was accompanied by her nurse Mehdi MOTTA to discuss her presenting symptomatology, chronic medical history and identified findings on CT scan of abdomen and pelvis necessitating transition of care to high-level service. She understands the importance of holding anticoagulation therapy pending anticipated procedural/surgical intervention. We will continue with IV antibiotic therapy, gentle fluid resuscitation, antiemetic therapy, alpha-bill therapy and parenterally administered controlled substance for comfort care. Problems addressed as follows: Obstructive uropathy Right mid ureteral stone Right hydronephrosis Bladder wall mass Routine vitals Urine culture pending ED electrolytes normal with creatinine 1.0 Gentle IV fluid resuscitation Alpha-bill therapy IV Rocephin Parenterally administered controlled substance for comfort care Chronic medical problems Diabetes Liver hemangiomas Renal cysts Ventral wall hernia Previous strokes (right occiput and right frontal temporal encephalomalacia) Lung cancer Tobacco dependence in remission The patient will be admitted to an observation status with routine vital evaluations until transition of care to the [facility] for higher level of care and urological services.
--- NOTE | 2024-06-11 18:21 | PC.NURSE ---
pt has refused transfer to [facility] stating that she wants to transfer to . Dr lozano present for conversation with patient.
--- NOTE | 2024-06-11 19:35 | PC.NURSE ---
TRN spoke with in regards to patient and being on wait list. At this time patient remains on wait list, with possible bed assignment tomorrow without guarantee. Patient updated and informed of information as well. Pt still remains adamant with receiving care at , and declines bed at [facility] after risks vs benefits explained by multiple people/medical staff on care team. She VU the risks of turning down bed at [facility].
[2024-06-11 20:00] VITALS: BP 122/76; PULSE 65; RESP 18; TEMP 36.4; O2SAT 95
--- NOTE | 2024-06-11 20:05 | PC.NURSE ---
[facility] called to say they had a bed open for the patient. I personally spoke with patient and she states she does not want to transfer unless it is to . She is aware that we do not know a timeline of when a bed at will be available and is also aware of possible complications from waiting on treatment. Patient stated if a bed doesn't open up tonight then I will leave and have my son take me to the ER at . Patient expresses that she is very happy with the care provided at [facility] and wishes we had the services available she needed but the only other hospital she will go to is . Patient alert and oriented x 4.
[2024-06-11] MEDS: TAMSULOSIN 0.4MG CAPSULE 0.4 MG PO (20:10)
--- NOTE | 2024-06-11 20:23 | PC.NURSE ---
Spoke with Yuliana at [facility] on bed assignment. Informed her that patient has declined bed, and to cancel bed assignment at this time. Yuliana reports that bed will be removed from patient, but if patient were to change mind, or decline to return call back to facility, and arrangements could be made to assign new bed. LUCILA NOEL. Phone # [phone]
[2024-06-12] MEDS: HYDROMORPHONE 2MG/ML SYRINGE 0.5 MG IV ×3 (01:10→12:45)
[2024-06-12 04:00] VITALS: BP 120/69; PULSE 61; RESP 18; TEMP 36.8; O2SAT 94; BMI 40.9
[2024-06-12 08:00] VITALS: BP 124/58; PULSE 60; RESP 18; TEMP 36.6; O2SAT 93
--- NOTE | 2024-06-12 12:43 | PC.NURSE ---
Called for update on waitlist update. No beds anticipated today.
[2024-06-12] MEDS: ONDANSETRON 4MG/2ML VIAL 4 MG IV (12:48)
--- OUTSIDE RECORDS SUMMARY | 2024-06-12 13:59 | XMS_ITS ---
Author Name Brent Major Address [address] [place] [id number] Organization Unknown Address [address] [place] [id number] ALLERGIES AND ADVERSE REACTIONS No information ASSESSMENT No information CHIEF COMPLAINT No information MEDICATIONS No information OBJECTIVE DATA No information PHYSICAL EXAMINATION No information TREATMENT PLAN Planned Care Start Date Provider Encounter for Check-up [phone] [facility] PROBLEMS No information RESULTS No information REVIEW OF SYSTEMS No information SUBJECTIVE DATA No information VITAL SIGNS No information
[2024-06-12] MEDS: TAMSULOSIN 0.4MG CAPSULE 0.4 MG PO (14:21)
[2024-06-12] MEDS: CEFTRIAXONE SODIUM 2 GM in 0.9 % SODIUM CHLORIDE 100 ML IV (14:22)
--- NOTE | 2024-06-12 15:22 | EXP.DC.SUM ---
General Admission date:: 06/11/24 Discharge date: 06/12/24 HPI HPI HPI: This is a 68-year-old female that presents to [facility] emergency department with concerns of abdominal pain that has been intermittent for several days and has crescendoed over the last 24 hours. She describes a constant ache to her left abdominal side that radiates to her flank. She reports associated piercing pain characterized as a 10 on a 1-10 pain scale with associated nausea and vomiting. She has identified hematuria over the last 48 hours with no associated vaginal discharge or vaginal bleeding. She reports some dysuria and urinary hesitancy. She reports a chronic history of diabetes, previous stroke, hypertension, diastolic congestive heart failure and lung cancer. In the ED a CT of the abdomen identified a right mid ureter stone 4.9 cm with associated right hydronephrosis and bladder wall mass. A chest x-ray was concerning for a right upper lobe mass 2.8 x 2.7 cm. She was administered IV fluids and provided with IV antibiotic therapy. ED provider discussed with the patient the lack of urological services at our [facility]. ED attempted to transfer the patient to [place] for higher level of care and the patient declined. She requested that her care be transitioned to the [facility] where she was placed on a wait list until bed becomes available. We were asked to admit the patient until transition of care occurs. We discussed her stable vital signs, her improved symptomatology and desire to have something to eat. The patient is awaiting transition of care for higher level of care concerning urological services. Hospital Course Hospital Course Hospital Course: The patient was admitted to the telemetry unit with IV fluid resuscitation, ongoing IV antibiotic therapy and alpha-bill therapy. She was awaiting transition of care for higher level of care to the [facility]. Multiple episodes of communicate with the [facility] for transition of care occurred. Routine communication by nursing staff with the patient concerning lack of bed availability at the [facility] for transition of care occurred. The patient continued to decline transition of care to a facility with urological services in [place]. The patient voiced frustration with the process for transition of care. The patient reached out to family by phone to discuss leaving our hospital and driving up to [place] for ED presentation. The patient will be discharged to family for transportation up to the [facility] as desired. I spent 35 minutes in [id number] time with the patient and nursing staff (Mehdi MOTTA) concerning the discharge process. We discussed the admitting diagnoses and hospital course. We discussed identified pain improvement, urine output, stable vital signs and the patient's desire to be discharged. We reviewed inpatient studies and imaging. She understands the importance of holding anticoagulation therapy and anti-platelet therapy until evaluation for anticipated procedural intervention. The patient voiced understanding on the importance of follow-up with her primary care provider and specialist(s). She understands that she can return to any emergency department with any sudden changes or concerns. Exam Data for Last 24 hours Vital signs and Labs for Last 24 Hours: Temp Pulse Resp BP Pulse Ox O2 Del Method 97.8 F 60 18 124/58 L 93 L Room Air 06/12/24 08:00 06/12/24 08:00 06/12/24 08:00 06/12/24 08:00 06/12/24 08:00 06/12/24 12:53 I & O for Last 24 hours: Intake & Output 06/09/24 06/10/24 06/11/24 06/12/24 23:59 23:59 23:59 23:59 Intake Total 200 / 200 480 / 480 Output Total 0 / 400 700 / 700 Balance 200 / -200 -220 / -220 Weight 103.589 kg 104.837 kg Constitutional Constitutional: no acute distress, morbidly obese, chronically ill appearing and cooperative *Routine HEENT Exam Head: Present normocephalic Eye: Present EOMI and PERRL ENT: Present mucous membranes moist *Routine Neck Exam Neck: Present supple; Absent JVD or lymphadenopathy *Routine Respiratory Exam Respiratory: Present rhonchi, normal respiratory effort and symmetric chest movement; Absent respiratory distress *Routine Cardiovascular Exam Cardiovascular: Present RRR, Normal S1 and Normal S2 *Routine Abdominal Exam Abdominal: Present soft, normoactive bowel sounds and tenderness; Absent distended, rebound or guarding *Routine Extremities Exam Extremities: Present edema and full ROM *Routine Skin Exam Skin: Present warm; Absent rash *Routine Neurological Exam Neurological: Present alert, oriented X3, moving all extremities, vision grossly intact, hearing grossly intact and normal speech; Absent sensory deficit or motor deficit Routine Psychiatric Exam Psychiatric: Present normal affect, normal thought process, cooperative, good insight and good judgment DS: Diagnosis Discharge Diagnosis (1) Obstructive uropathy: Status: Acute Code(s): N13.9 - Obstructive and reflux uropathy, unspecified (2) Calculus of right ureter: Status: Acute Code(s): N20.1 - Calculus of ureter (3) Hydronephrosis: Status: Acute Code(s): N13.30 - Unspecified hydronephrosis (4) UTI (urinary tract infection): Status: Acute Code(s): N39.0 - Urinary tract infection, site not specified Meds Home Medications and Allergies Home Medications ?Medication ?Instructions ?Recorded ?Confirmed ?Type insulin aspart (niacinamide) 0 sliding scale dose SQ AC 07/04/22 06/11/24 History (U-100) 100 unit/mL subcutaneous solution (Fiasp U-100 Insulin) flash glucose scanning reader #1 ea 09/24/22 06/11/24 Rx ([employer] 14 Day [place]) albuterol sulfate 90 mcg/actuation 1 puff inhalation QIDP PRN 09/10/23 06/11/24 Rx aerosol inhaler Shortness Of Breath Or Wheezing #8.5 grams apixaban 5 mg tablet 5 mg PO BID 06/11/24 06/11/24 History aspirin 81 mg tablet,delayed 81 mg PO DAILY 06/11/24 06/11/24 History release atorvastatin 80 mg tablet 80 mg PO HS 06/11/24 06/11/24 History bisoprolol fumarate 5 mg tablet 5 mg PO DAILY 06/11/24 06/11/24 History dulaglutide 0.75 mg/0.5 mL 0.75 mg SQ WEEKLY 06/11/24 06/11/24 History subcutaneous pen injector (Trulicity) omeprazole 40 mg capsule,delayed 40 mg PO DAILY 06/11/24 06/11/24 History release sennosides 8.6 mg tablet (Senna 8.6 mg PO DAILYP PRN Constipation 06/11/24 06/11/24 History Laxative) spironolactone 50 mg tablet 50 mg PO DAILY 06/11/24 06/11/24 History torsemide 20 mg tablet 20 mg PO DAILY 06/11/24 06/11/24 History New Prescriptions to Start Prescriptions: Allergies Allergy/AdvReac Type Severity Reaction Status Date / Time diclofenac Allergy Unknown Verified 02/10/24 15:24 allergy reaction Discharge Plan Disposition Patient Disposition: Home, Self-Care Condition: Fair Discharge Order Discharge Orders: Discharge Order (Routine); Ordered 06/12/24 Ordered By: Malachi Connell Follow up Plan Follow up with: Orlando Zhang MD [Primary Care Provider] - 1 week Prescriptions/Medication Reconciliation: Continued albuterol sulfate 90 mcg/actuation HFA aerosol inhaler 1 puff INHALATION QIDP PRN (Reason: Shortness Of Breath Or Wheezing) Qty: 8.5 10RF (DME) [employer] Diana 14 Day [place] Misc See Rx Instructions .Route Qty: 1 0RF Rx Instructions: As directed Trulicity 0.75 mg/0.5 mL pen injector 0.75 mg SQ WEEKLY Patient Comments: INJECT 0.75 MG EVERY WEEK BY SUBCUTANEOUS ROUTE. atorvastatin 80 mg tablet 80 mg PO HS sennosides [Senna Laxative] 8.6 mg tablet 8.6 mg PO DAILYP PRN (Reason: Constipation) torsemide 20 mg tablet 20 mg PO DAILY omeprazole 40 mg capsule,delayed release(DR/EC) 40 mg PO DAILY bisoprolol fumarate 5 mg tablet 5 mg PO DAILY spironolactone 50 mg tablet 50 mg PO DAILY Fiasp U-100 Insulin 100 unit/mL solution 0 sliding scale dose SQ AC Held aspirin 81 mg tablet,delayed release (DR/EC) 81 mg PO DAILY Hold Instructions: Resume on 06/13/24. Hold until urology evaluation anticipated over the next 24 hours apixaban 5 mg tablet 5 mg PO BID Hold Instructions: Resume on 06/13/24. Hold until urology evaluation anticipated over the next 24 hours Problem Reconciliation Problems Reviewed?: Yes Patient Discharge Instructions ACTIVITY: Ambulate as tolerated DIET: advance to your usual diet Additional Instructions: Please see your healthcare proving team at the [facility] as planned. Patient Instructions: DI for Kidney Stones Print Language: [place] Providers Primary Care Provider: Orlando Zhang Admit Provider: Malachi Connell Attending Provider: Malachi Connell
[2024-06-13 04:59] LABS: POC Glucose,Bedside 133 (70-110)
--- NOTE | 2024-06-14 13:42 | CARE MANAGER ---
Unable to reach patient via phone to discuss recent discharge. VM left with information to return our call.
== END 2024-06-12 16:20 | disposition home or self-care (01) ==
LOC: ER 08:26 → 2ND 09:28
PROVIDERS: Admitting Provider Family Medicine; Emergency Provider Emergency Medicine; PCP Family Medicine; Visit Provider Family Medicine
DX: N13.9 Obstructive and reflux uropathy, unspecified (principal); N20.1 Calculus of ureter; N13.30 Unspecified hydronephrosis; N39.0 Urinary tract infection, site not specified; Z86.73 Personal history of transient ischemic attack (TIA), and cerebral infarction without residual deficits; J44.9 Chronic obstructive pulmonary disease, unspecified; E11.9 Type 2 diabetes mellitus without complications; Z79.4 Long term (current) use of insulin; Z08 Encounter for follow-up examination after completed treatment for malignant neoplasm; Z85.118 Personal history of other malignant neoplasm of bronchus and lung; E78.5 Hyperlipidemia, unspecified; I50.30 Unspecified diastolic (congestive) heart failure; Z87.891 Personal history of nicotine dependence; D72.829 Elevated white blood cell count, unspecified
CPT/HCPCS: 70450; 70496; 70498; 71045; 74177; 80053; 81001; 82962; 83605; 83690; 84484; 85025; 85610; 87086; 93005; 99285; G0378; J0696; J1170; J1885; J2405; J7120; Q9967

== ENCOUNTER 2024-08-11 13:19 | Outpatient (CLI) | payer MEDICARE, SELFPAY ==
--- NOTE | 2024-08-11 13:19 | CT_ITS ---
FINAL REPORT CLINICAL HISTORY: Mass right upper lobe, Hx of lung cancer COMPARISON: 04/14/2021 FINDINGS: Axial CT images of the chest were obtained with contrast. Coronal and sagittal reformatted images were also obtained. This study was performed with techniques to keep radiation doses as low as reasonably achievable, (ALARA). Individualized dose reduction techniques using automated exposure control or adjustment of mA and/or KV according to the patient's size were employed. Note is made of an aberrant right subclavian artery. There is no evidence of mediastinal or hilar mass or adenopathy. No axillary mass or adenopathy is identified. Mild changes of emphysema are present, as well as mild scarring. There is postoperative change from a prior right lower lobectomy. On lung window images, there is a lobular soft tissue mass in the posterior aspect of the right upper lobe, measuring 35 x 26 mm in size, consistent with neoplasm. No localized pulmonary inflammatory process is identified. Note is made of small left thyroid nodules, probably present on the prior exam. Limited images of the upper abdomen reveal postoperative changes in the stomach, as well as prior gallbladder resection. There is a 2.7 cm right adrenal mass which contains a small focus of fat, favor myelolipoma. This is stable when compared to the prior exam. IMPRESSION: Postoperative changes of a right lower lobectomy. There is a lobular soft tissue mass in the posterior aspect of the right upper lobe, 35 x 26 mm in size, consistent with neoplasm. 2.7 cm right adrenal mass with a focus of fat, favor a myelolipoma, stable. Reviewed, Interpreted and Dictated by Prasanna Stuart III, MD Transcribed by Esther Dawkins Authenticated and [facility]
[2024-08-11 13:45] LABS: Blood Urea Nitrogen 15 mg/dl (7-17); Estimated Glomerular Filt Rate 72 ml/min (>60); GFR (African American) 87 ML/MIN (>60)
[2024-08-11] MEDS: IOPAMIDOL-370 (76%);100ML BOTTLE 75 ML IV (14:31)
[2024-08-11] MEDS: SODIUM CHLORIDE 0.9% 10ML SYR (RAD ONLY) 10 ML IV (14:31)
== END 2024-08-11 23:59 | disposition home or self-care (01) ==
LOC: RAD 13:19
PROVIDERS: PCP Family Medicine; Visit Provider Family Medicine
DX: R91.8 Other nonspecific abnormal finding of lung field (principal)
CPT/HCPCS: 36415; 71260; 82565; 84520; Q9967

== ENCOUNTER 2024-08-30 08:43 | Outpatient (CLI) | payer MEDICARE, SELFPAY ==
[2024-08-30] VITALS (9 sets, daily range): BP systolic 128–160; BP diastolic 52–76; PULSE 66–79; RESP 16–19; TEMP 36.4; O2SAT 91–95; BMI 40.4
--- NOTE | 2024-08-30 | XR_ITS ---
FINAL REPORT CLINICAL HISTORY: S/P CT guided lung bx COMPARISON: 06/11/2024 FINDINGS: A portable view of the chest was obtained. Cardiac and mediastinal silhouettes are within normal limits. There has been no change in the right midlung mass. Right basilar opacity could be atelectasis.. There is no pneumothorax.. IMPRESSION: No pneumothorax postbiopsy Reviewed, Interpreted and Dictated by Eleonora Knapp MD Transcribed by Anette Madison Authenticated and [facility]
--- NOTE | 2024-08-30 08:46 | CT_ITS ---
FINAL REPORT CLINICAL HISTORY: Lung nodule - Right Upper Lobe meds, 2,.50 FINDINGS: CT GUIDEDLUNG CORE BIOPSY. HISTORY: Right lung nodule ATTENDING PHYSICIAN: Dr. Christensen PHYSICIAN DINING ROOM CAPTAIN: Gabo Rehman PA-C PROCEDURE: After informed consent was obtained and a timeout was performed, the patient was prepped and draped in usual sterile fashion over the chest. Utilizing local anesthesia and sterile technique with a coaxial system, access to lesion was obtained. A total of 4 separate 20-gauge core biopsies were obtained. Post biopsy films demonstrate no evidence of acute complication. The patient received moderate procedural sedation. The patient tolerated the procedure well and left the department in good condition. The attending pathologist visual merchandising assistant determined that the sample was diagnostic. A total of 2 mg of Versed and 50 mcg of fentanyl were given to the patient for conscious sedation with continuous nurse monitoring. IMPRESSION: Status post CT guided core biopsy of right lung nodule without immediate complication. Films reviewed , interpreted and dictated by Dr. Christensen. Transcribed by Gabo Rehman PA-C. Reviewed, Interpreted and Dictated by Ignacio Christensen MD Transcribed by HARESH Card Authenticated and [facility]
[2024-08-30 09:47] LABS: Basophils # 0.1 K/mm3 (0-0.2); Basophils % 0.8 % (0.1-2.0); Eosinophils # 0.1 K/mm3 (0.0-0.4); Eosinophils % 1.7 % (0.1-12.0); Lymphocytes # 1.4 K/mm3 (0.7-4.5); Lymphocytes % 20.6 % (10-50); Mean Corpuscular HGB Conc 34.2 g/dL (31.8-35.4); Mean Corpuscular Hemoglobin 32.3 pg (27.0-31.2); Mean Corpuscular Volume 94.4 fl (81-99); Mean Platelet Volume 7.8 fl (7.4-10.4); Monocytes # 0.3 K/mm3 (0.1-1.0); Monocytes % 4.3 % (1.7-9.3); Neutrophils # 4.8 K/mm3 (1.8-7.8); Neutrophils % 72.7 % (37.0-80.0); Platelet Count 187 K/mm3 (142-424); Red Blood Count 4.02 M/mm3 (4.20-5.40); Red Cell Distribution Width 14.7 % (11.5-17.5); White Blood Count 6.6 K/mm3 (4.8-10.8)
[2024-08-30 09:53] LABS: INR 1.01 (0.9-1.1); Prothrombin Time 11.3 seconds (10.1-12.5)
[2024-08-30 10:15] LABS: Albumin Level 3.9 g/dl (3.5-5.0); Chloride 102 mmol/L (98-107)
[2024-08-30 10:16] LABS: Sodium 140 mmol/L (136-145)
[2024-08-30 10:18] LABS: Alanine Aminotransferase 38 U/L (12-78); Blood Urea Nitrogen 23 mg/dl (7-17); Creatinine Clearance Estimated 89 mL/min (50-200); Estimated Glomerular Filt Rate 83 ml/min (>60); GFR (African American) 101 ML/MIN (>60)
[2024-08-30 10:19] LABS: Albumin/Globulin Ratio 1.6 (1.1-1.8); Alkaline Phosphatase 137 U/L (38-126); Aspartate Amino Transferase 45 U/L (14-36); Bilirubin,Total 0.6 mg/dl (0.2-1.3); Calcium 8.5 mg/dl (8.4-10.2); Carbon Dioxide 32 mmol/L (22.0-30.0); Globulin 2.5 g/dL (1.3-3.2); Glucose 160 mg/dl (74-100); Total Protein,Serum 6.4 g/dl (6.3-8.2)
--- NOTE | 2024-08-30 13:30 | XR_ITS ---
FINAL REPORT CLINICAL HISTORY: 2 HOURS S/P LUNG BX COMPARISON: 06/11/2024 FINDINGS: A portable view of the chest was obtained. Cardiac and mediastinal silhouettes are within normal limits. There is no change in the right lung mass. There is no evidence of pneumothorax. There is a stable small right pleural effusion. IMPRESSION: No change in the right midlung mass. There is no evidence of pneumothorax, and there is a stable right small pleural effusion. Reviewed, Interpreted and Dictated by Eleonora Knapp MD Transcribed by Esther Dawkins Authenticated and [facility]
[2024-08-31 15:09] LABS: POC Glucose,Bedside 161 (70-110)
== END 2024-08-30 14:30 | disposition home or self-care (01) ==
PROVIDERS: PCP Family Medicine; Visit Provider Internal Medicine Pulmonary Disease
DX: R91.8 Other nonspecific abnormal finding of lung field (principal); I63.9 Cerebral infarction, unspecified; Z79.01 Long term (current) use of anticoagulants
CPT/HCPCS: 32408; 71045; 77012; 80053; 82962; 85025; 85610; 88305; 88312; J2250; J3010

== ENCOUNTER 2025-03-16 14:20 | Outpatient (CLI) | payer MEDICARE, SELFPAY ==
--- OUTSIDE RECORDS SUMMARY | 2025-01-24 08:44 | XMS_ITS | Encounter Summary ---
Author Organization [facility] Address [address] [place] [address] Care Team Providers Care Associate Professor Of Biostatistics Name Role Phone Orlando Zhang MD Primary Care Provider Source Comments This information has been disclosed to you from confidential records protectfrom disclosure by state law. You shall make no further disclosure of thisinformation without the specific, written, and informed release of theindividual to whom it pertains, or as otherwise permitted by law. A generalauthorization for the release of medical or other information is not sufficientfor the purposes of the release of HIV test results or diagnoses. [id number] Health Reason for Visit * Auth/Cert (Routine) Specialty Diagnoses / Procedures Referred By Mattie t Referred To Contact Diagnoses Malignant neoplasm of urinary bladder, unspecified site ([facility]) [C67.9] Procedures CYSTOSCOPY TRANSURETHRAL RESECTION BLADDER [facility] [address] [place] [address] Phone: tel: Referral ID Status Reason Start Date Expiration Date Visits Re quested Visits Authorized [id number] 1 1 Encounter Details Date Type Department Care Team (Latest Contact Info) Description 01/24/2025 8:44 AM EDT - 01/25/2025 3:33 PM EDT Hospital Encounter [facility] [address] [place] [address] Trevon Grant MD [address] [place] [phone] Malignant neoplasm of urinary bladder, unspecified site ([facility]) Discharge Disposition: Home or Self Care WITHOUT Home Care Services Social History Tobacco Use Types Packs/Day Years Used Date Smoking Tobacco: Former Cigarettes 1 47 Smokeless Tobacco: Never Tobacco Cessation:Counseling Given: Not Answered Comments:currently 1ppd, on 2018 Alcohol Use Standard Drinks/Week Comments No 0 (1 standard drink = 0.6 oz pur e alcohol) Utilities Answer Date Recorded In the past 12 months has th e [employer], gas, oil, or water company threatened to shut off services in your home? No 01/24/2025 AUDIT-C Answer Date Recorded Q1: How often do you have a drink containing alcohol? Never 01/24/2025 Q2: How many drinks containi ng alcohol do you have on a typical day when you are drinking? Patient does not drink Q3: How often do you have si x or more drinks on one occasion? Never 01/24/2025 Hunger Vital Sign Answer Date Recorded Within the past 12 months, y ou worried that your food would run out before you got the money to buy more. Never true 01/25/20 25 Within the past 12 months, t he food you bought just didn't last and you didn't have money to get more. Never true 01/24/2025 PRAPARE - Transportation Answer Date Re corded In the past 12 months, has l ack of transportation kept you from medical appointments or from getting medications? No 01/04 In the past 12 months, has l ack of transportation kept you from meetings, work, or from getting things needed for daily living? No 01/24/2025 Housing Stability Vital Sign Answer Kamaljit e Recorded In the last 12 months, was t here a time when you were not able to pay the mortgage or rent on time? No 01/24/2025 In the past 12 months, how m any times have you moved where you were living? 0 01/24/2025 At any time in the past 12 m [facility], were you homeless or living in a chcf (including now)? No 01/24/2025 Comments No Sex and Gender Information Value Date Recorded Sex Assigned at Not on file Legal Sex Female 7:42 PM EST Gender Identity Not on file Sexual Orientation Not on file documented as of this encounter Last Filed Vital Signs Vital Sign Reading Time Taken Comments Blood Pressure 104/69 01/25/2025 11:56 AM EDT Pulse 55 01/25/2025 11:56 AM EDT Temperature 36.8 C (98.2 F) 01/25/2025 11:56 AM EDT Respiratory Rate 18 01/25/2025 11:56 AM EDT Oxygen Saturation 94% 01/25/2025 11:56 AM EDT Inhaled Oxygen Concentration 94% 01/25/2025 1 1:56 AM EDT Weight 101.6 kg (224 lb) 01/24/2025 9:30 AM EDT Height 160 cm (5' 3 ) 01/24/2025 9:30 AM EDT Body Mass Index 39.68 01/24/2025 9:30 AM EDT documented in this encounter Functional Status * Audit-C Score Answer Date of Assessment Author 0 01/24/2025 7:41 PM EDT Alejandra Lorenzana RN * Question Answer Date of Assessment Author Q1: How often do you have a drink containing alcohol? Never 01/24/2025 7:41 PM EDT Ok Lorenzana R N Q2: How many drinks containing alcohol do you have on a typical day when you are drinking? Patient does not drink 01/24/2025 7:41 PM EDT Ok Lorenzana RN Q3: How often do you have six or more drinks on one occasion? Never 01/24/2025 7:41 PM EDT Ok Lorenzana R N documented as of this encounter Discharge Summaries * Tammi Leyva - 01/25/2025 2:38 PM EDT [facility] Airplane Pilot/Exhaust Tender Discharge Summary Patient name: Trinidad Jung Patient : 1955 Age: 69 y.o. Gender: female Patient emergency contact: Extended Emergency Contact Information Primary Emergency Contact: Pavel Jung [facility] Mobile Relation: Spouse Attending provider: Trevon Grant MD Primary care physician: ORLANDO ZHANG MD The MD has indicated that the patient is ready for discharge. [facility] [facility] [place] [phone][facility] for PRN oxygen needs. [facility] office in [place], [place] ([phone])delivered a tank to the patient at bedside. Per rep, Abiola Guillen, the tank would last patient 4 hours. Patient is PRN oxygen needs and her transport home is under 2 hours. [facility] ([phone]) provided patient transport to the hospital yesterday and will be transporting patient home today around 3:30pm. SW relayed to patient, team, and bedside nurse.Transport will be waiting for patient at the main entrance. Transport will call bedside nurse and patient once they arrive. Transfer Mode/Level of Care: Community Transport The plan has been reviewed: Patient/Family Informed of Discharge Plan: Yes Plan Reviewed With Patient, Family, or Significant Other: Yes Patient and or family are aware and in agreement with the discharge plan: Yes Plan reviewed with MD and other members of the health care team: Yes Care Plan Completed: Yes No further CM/SW needs. Tammi Leyva, APOORVA, FRICTION SAW OPERATOR Inpatient Exhaust Tender/Catering Director [phone] This plan has been reviewed with the multi-disciplinary team. Treatment Preferences Treatment Preferences: Provider Preference Post-Discharge Goals Patient's Post-Discharge goals: To return home safely Post Acute Care Provider Information: Community Services at Discharge Community Services at Home post discharge: [facility] [facility] Name/Phone #: [facility] ([place], [place] [phone]) Oxygen Needs: Oxygen Oxygen Liter/Minute: 2 * Maile Trujillo, [facility] - 01/25/2025 1:20 PM EDT UROLOGY DISCHARGE SUMMARY Patient ID: Trinidad Jung [id number] Admit date: 01/24/2025 Discharge date: 01/25/2025 Attending Physician: Trevon Grant MD Admission Diagnoses: Malignant neoplasm of urinary bladder, unspecified site (CMS-HCC) [C67.9] Discharge Diagnoses: Active Problems: Malignant neoplasm of urinary bladder, unspecified site (CMS-HCC) [C67.9] Past Medical History: Diagnosis Date Abnormal gait walker on occas Arthritis Back pain sciatica Cataract Clotting disorder (CMS-HCC) Constipation COPD (chronic obstructive pulmonary disease) ([facility] CVA (cerebral vascular accident) ([facility] 2019 Diabetes ([facility]) DVT (deep venous thrombosis) ([facility]) GERD (gastroesophageal reflux disease) Hypertension Kidney stone Liver disease fatty liver Lung nodule 04/2019 Pulmonary embolism ([facility]) 1988 postop Sleep apnea no bipap Indication for Admission: Trinidad Jung is a 69 y.o. female with a history of HTN, HLD, DM type II, CVA, COPD (on home O2), DVT/PE, STEPHON, obesity, GERD, nephrolithiasis, and a ~3 cm bladder mass s/p cystoscopy, TURBT (07/15/24) and BCG who presents to the hospital for operative management. Operations/Procedures Performed: Urology Surgery (01/24/25) Cystoscopy Transurethral resection of bladder tumor (small <2cm) Hospital Course: Patient admitted on 01/24/2025 and underwent above mentioned procedure(s) on 01/24/2025. Tolerated the procedure well with no complications. Please see full operative report for further details regarding the operation. Post-operatively transferred to PACU, then to the floor in stablecondition for overnight observation. Pain controlled post-op with multimodal therapy. Greco removedon POD # 0 and voided clear, yellow urine spontaneously upon discharge. Diet was advanced and tolerated this well. At time of discharge, the patient was tolerating oral food and hydration, voiding spontaneously, had return of bowel function, was ambulating without difficulty, and pain was controlled on oral medications. The patient was determined to be suitable for discharge and the patient felt comfortable with that decision. Patient was discharged to home in good condition and will return in ~2 weeks for follow-up. Discharge instructions and return precautions reviewed. All questions answered. Consults: Anesthesia, Case Management Significant Diagnostic Studies: Unable to determine diagnosis (surgical pathology pending) Discharge Exam: Blood pressure 104/69, pulse 55, temperature 98.2 ??F (36.8 ??C), temperature source Oral, resp. rate 18, height 5' 3 (1.6 m), weight (!) 224 lb (101.6 kg), SpO2 94%. Gen - NAD, A&O x 3 CV - RRR, normotensive Resp - CTAB, SpO2 >95% on 2L O2 per NC Abd - Soft, rounded, non-tender, non-distended Ext - Warm, well-perfused - Voiding clear, yellow urine spontaneously Disposition: Discharged home in good condition Discharge Medications: Current Discharge Medication List CONTINUE these medications which have NOT CHANGED Details albuterol (PROVENTIL;VENTOLIN;PROAIR) 90 mcg/actuation inhaler apixaban (ELIQUIS) 5 mg Tab Take 1 tablet (5 mg total) by mouth 2 times a day. atorvastatin (LIPITOR) 80 MG tablet Take 1 tablet (80 mg total) by mouth at bedtime. bisoprolol (ZEBETA) 5 MG tablet Take 1 tablet (5 mg total) by mouth daily. AM FIASP U-100 INSULIN 100 unit/mL Soln INJECT 80 UNITS SUBCUTANEOUSLY EVERY DAY PER OMNIPOD DIRECTED (PER OMNIPOD MAX OF 80 UNITS PER DAY) naproxen sodium (ANAPROX) 220 MG tablet Take 1 tablet (220 mg total) by mouth 2 times a day with meals. omeprazole (PRILOSEC) 40 MG capsule TAKE ONE CAPSULE BY MOUTH EVERY DAY BEFORE a meal Refills: 3 spironolactone (ALDACTONE) 50 MG tablet Take 1 tablet (50 mg total) by mouth daily. torsemide (DEMADEX) 20 MG tablet Take 1 tablet (20 mg total) by mouth daily. aspirin 81 MG EC tablet Take 1 tablet (81 mg total) by mouth daily. oxybutynin (DITROPAN) 5 MG tablet Take 1 tablet (5 mg total) by mouth 3 times a day as needed. Qty: 15 tablet, Refills: 0 senna-docusate (SENNA-S) 8.6-50 mg per tablet Take 2 tablets by mouth 2 times a day. Qty: 30 tablet, Refills: 0 TRULICITY 0.75 mg/0.5 mL PnIj Inject 0.75 mg subcutaneously once a week. UNABLE TO FIND Med Name: oxygen 2 liters per Nasal cannula as needed Patient Instructions: RESUME HOME REGIMEN OF ELIQUIS 5 MG BY MOUTH TWICE DAILY ON THURSDAY MORNING (01/28/2025) LONG URINE REMAINS CLEAR Activity: Activity as tolerated, no limitations, walk or exercise daily Diet: Resume home diet, drink plenty of water Other Instructions: Take medications as prescribed. Some blood in urine can be expected after procedure Go to the ER or call the Urology Resident tonsorial artist at [phone] if you experience any of the following: - Worsening pain, nausea, or vomiting not relieved by medications - Temperature greater than 101.5 F or fever/chills - Chest pain, shortness of breath, persistent dizziness, swelling in one or both legs - Bright red blood in urine or inability to urinate Urology follow up: A graphotype operator will reach out to you to set up a follow up appointment in our clinic after the procedure. If you do not hear from us, please contact our clinic using the information below: Contact Information: Your [facility] Urology Physicians can be reached the following ways: - During business hours (8 AM - 5 PM), please call the Urology Clinic at . - During after hours and holidays, please call the [facility] HospitalOperator at and ask to speak to the urology resident tonsorial artist. Follow-Up: Future Appointments Date Time Provider Department Center 03/14/2025 1:30 PM HARESH Quinn [facility] URO MAB MAB MAILE TRUJILLO CNP 01/25/2025 Cosigned by Trevon Grant MD at 01/25/2025 1:38 PM EDT Associated attestation - Trevon Grant MD - 01/25/2025 1:38 PM EDT I saw and examined the patient. I agree with the findings and plan. documented in this encounter Discharge Instructions * Discharge Instructions* Maile Trujillo CNP - 01/24/2025 12:36 PM EDT RESUME HOME REGIMEN OF ELIQUIS 5 MG BY MOUTH TWICE DAILY ON THURSDAY MORNING (01/28/2025) LONG URINE REMAINS CLEAR Activity: Activity as tolerated, no limitations, walk or exercise daily Diet: Resume home diet, drink plenty of water Other Instructions: Take medications as prescribed. Some blood in urine can be expected after procedure Go to the ER or call the Urology Resident tonsorial artist at [phone] if you experience any of the following: - Worsening pain, nausea, or vomiting not relieved by medications - Temperature greater than 101.5 F or fever/chills - Chest pain, shortness of breath, persistent dizziness, swelling in one or both legs - Bright red blood in urine or inability to urinate Urology follow up: A graphotype operator will reach out to you to set up a follow up appointment in our clinic after the procedure. If you do not hear from us, please contact our clinic using the information below: Contact Information: Your [facility] Urology Physicians can be reached the following ways: - During business hours (8 AM - 5 PM), please call the Urology Clinic at . - During after hours and holidays, please call the [facility] HospitalOperator at and ask to speak to the urology resident tonsorial artist CPAP vs BiPAP: You will need to go to a sleep doctor to complete a sleep study to determine whether you need a CPAP vs BiPAP. The sleep doctor may take into consideration the type of sleep apnea you have, other health related issues (if applicable), and your response to a CPAP machine. The sleep doctor will then write you a prescription for the most appropriate machine based on the test. documented in this encounter Medications at Time of Discharge albuterol (PROVENTIL;VENT CHANDA;PROAIR) 90 mcg/actuation inhaler 01/26/2019 apixaban (ELIQUIS) 5 mg Tab Take 1 tablet (5 mg total) by mouth 2 times a day. 10/31/2019 aspirin 81 MG EC tablet Take 1 tablet (81 mg total) by mouth daily. 10/31/2019 atorvastatin (LIPITOR) 80 MG tablet Take 1 tablet (80 mg total) by mouth at bedtime. 10/31/2019 bisoprolol (ZEBETA) 5 MG tablet Take 1 tablet (5 mg total) by mouth daily. AM 11/07/2019 FIASP U-100 INSULIN 100 unit/mL Soln INJECT 80 UNITS SUBCUTANEOUSLY EVERY DAY PER OMNIPOD DIRECTED (PER OMNIPOD MAX OF 80 UNITS PER DAY) 07/04/2022 naproxen sodium (ANAPROX) 220 MG tablet Take 1 tablet (220 mg total) by mouth 2 times a day with meals. omeprazole (PRILOSEC) 40 MG capsule TAKE ONE CAPSULE BY MOUTH EVERY DAY BEFORE a meal 3 01/26/2019 oxybutynin (DITROPAN) 5 MG tablet Take 1 tablet (5 mg total) by mouth 3 times a day as needed. 15 tablet 07/17/2024 senna-docusate (SENNA-S) 8.6-50 mg per tablet Take 2 tablets by mouth 2 times a day. 30 tablet 04/16/2019 1:06 PM EDT 04/16/2019 spironolactone (ALDACTONE) 50 MG tablet Take 1 tablet (50 mg total) by mouth daily. 06/11/2024 torsemide (DEMADEX) 20 MG tablet Take 1 tablet (20 mg total) by mouth daily. 06/11/2024 TRULICITY 0.75 mg/0.5 mL PnIj Inject 0.75 mg subcutaneously once a week. 05/31/2024 UNABLE TO FIND Med Name: oxygen 2 liters per Nasal cannula as needed documented as of this encounter Progress Notes * Thompson Hayes MD - 01/25/2025 7:58 AM EDT Urology Progress Note Name: Trinidad Thacker Erich Admit Date: 01/24/2025 OR Date: 01/24/2025 Subjective: Patient seen and examined this morning. AFVSS No issues overnight Pain well controlled Voiding spontaneously Objective: Vitals: Temp: [97.1 ??F (36.2 ??C)-98.5 ??F (36.9 ??C)] 98.4 ??F (36.9 ??C) Heart Rate: [58-72] 58 Resp: [14-30] 14 BP: (103-145)/(57-116) 116/60 FiO2: [30 %-100 %] 30 % Intake/Output: Date 01/24/25 0700 - 01/25/25 0659 01/25/25 07 - 01/26/25 0659 Shift 2504-8547 5497-9589 4335-2206 24 Hour Total 5925-5897 3893-2630 3380-9581 24 Hour Total INTAKE P.O. 720 720 P.O. 720 720 IV Piggyback 100 100 Volume (mL) (ceFAZolin (ANCEF) 2 g in sodium chloride 0.9% 100 mL ADDaptor IVPB) 100 100 Shift Total(mL/kg) 100(1) 720(7.1) 820(8.1) OUTPUT Urine(mL/kg/hr) 400(0.5) 400(0.2) Urine 400 400 Emesis/NG output 0 0 Emesis 0 0 Emesis Occurrence 0 x 0 x Stool Stool Occurrence 0 x 0 x Blood 0 0 Blood 0 0 Shift Total(mL/kg) 400(3.9) 400(3.9) Weight (kg) 101.6 101.6 101.6 101.6 101.6 101.6 101.6 101.6 Physical Exam: Gen: Alert and oriented x3, no acute distress HEENT: NCAT CV: Regular rate and rhythm Resp: No respiratory distress, CPAP overnight Abd: Soft, non-distended, non-tender Ext: Warm and well perfused : voiding spontaneously Labs: No results for input(s): WBC , HGB , HCT , PLT in the last 72 hours. No results for input(s): NA , K , CL , CO2 , BUN , CREATININE , GLUCOSE , CALCIUM , MG , PHOS in the last 72 hours. Current Medications: Scheduled Meds: aspirin 81 mg Oral Daily 0900 atorvastatin 80 mg Oral Nightly (2100) bisoprolol 5 mg Oral Daily 0900 heparin 5,000 Units Subcutaneous 3 times per day insulin lispro 0-7 Units Subcutaneous Nightly (2100) insulin lispro 0-8 Units Subcutaneous TID AC pantoprazole 40 mg Oral DAILY 0600 senna-docusate 1 tablet Oral Daily 0900 spironolactone 50 mg Oral Daily 0900 torsemide 20 mg Oral Daily 0900 Continuous Infusions: lactated Ringers PRN Meds: acetaminophen, albuterol, ondansetron Assessment/Plan: Trinidad Jung is a 69 y.o. female 1 Day Post-Op s/p TURBT. /Renal: follow up in clinic to discuss bladder tumor pathology Neuro: Pain control with [facility]. CV: Hemodynamically stable. Pulm: Wean oxygen and encourage incentive spirometer. FEN: Diet: consistent carb diet. Replace electrolytes prn. GI: Bowel regimen, zofran prn nausea. Heme: Monitor H/H ID: Afebrile, no s/sx infection. Proph: SQH, SCDs, incentive spirometer, ambulate. Disposition: discharge today pending transport home Discussed with staff MD THOMPSON Duncan MD Urology Pager: [phone] Cosigned by Trevon Grant MD at 01/25/2025 10:35 AM EDT Associated attestation - Trevon Grant MD - 01/25/2025 10:35 AM EDT I saw and evaluated the patient, and discussed with the resident. I agree with the resident???s findings and plan as documented in the resident???s note. * Jolie Morales RN - 01/02/2025 2:52 PM EDT Images from the original note were not included. 12/27/24 0006 Pre-op Phone Call Surgery Time Verified No (01/24/2025 date only) Arrival Time Verified (per MD) Surgery Location Verified Yes ([facility]) Remind patient to bring picture ID and insurance card Yes Medical History Reviewed Yes NPO Status Reinforced Yes (NPO after midnight) Ride and Caregiver Arranged Yes Ride Caregiver Provider Spouse Pavel Phone Number for Ride/Caregiver [phone] Instructions to bring current medication list Yes Patient scheduled for CYSTOSCOPY TRANSURETHRAL RESECTION BLADDER with Dr. Grant. Last anesthesia event: 07/28/2024 no complications Medical history includes DM, HTN, COPD, STEPHON. Reviewed patient???s chart. Call placed to patient, phone screen for upcoming procedure completed. Reviewed preop instructions with patient. No history of anesthesia complications. Reviewed medication list. Avoid NSAIDS including ASA, Advil, Ibuprofen, Aleve, diclofenac, meloxicam or Naproxen from now until procedure. Ok to take Acetaminophen. Instructed to hold all vitamins, herbal supplements, cannabis products, vitamin E & all mulit-viatmins for 2 weeks prior to surgery. Hold chondroitin & glucosamine for 2 days prior to surgery. Ok to continue ferrous sulfate, fish oil, melatonin, vitamin B12, iron, calcium, magnesium & potassium through surgery. Instructed to hold the following medications the morning of surgery: Spironolactone Instructed to take the following medications the morning of surgery: Omeprazole Bisoprolol Advised the patient to contact prescribing MD regarding when to stop taking aspirin prior to surgery. Instructed the patient to notify their surgeons office and PCP if they begin to feel ill prior to surgery. Instructions given on treating low blood sugar on the morning of surgery: check blood sugar the morning of surgery and treat if it is less than 70 with 4 ounces of clear liquid. Check blood sugar again 15 minutes later to make sure it has returned to normal level and repeat process if blood sugar level still low and to inform nurse on arrival of low BS. Info also given that treating low BS may impact the timing of surgery. Insulin Pump Instructions: Depending on the duration (less than 2 hours), the extent of your surgery and the type of post op pain medication you will receive, you may be able to continue wearing your insulin pump while you're in the hospital. You will need to be able to manage the pump on your own. Contact your diabetes care provider for insulin pump instructions before your surgery date. Continue your basal rates or adjust them according to your diabetes care provider instructions. Change insertion sit, tubing and reservoir the day before surgery. BRING EXTRA SUPPLIES WITH YOU [facility] (insertion set, tubing, reservoir, batteries). The [facility] does not have insulin pumpsupplies available. For surgery involving the abdomen, place the pump catheter in a site other than your abdomen (outerarm, upper hip or outer thigh). Remind the surgical staff that you are wearing an insulin pump when you arrive. You will be required to sign an Insulin Pump Patient Agreement form. Pre op instructions sent to patient via email per request. Patient verbalizes understanding all instructions and denies further questions. Provided patient with phone number to contact this office with further questions or concerns. [facility]: [address] [place] [address]. [phone] Arrival Instructions We're pleased that you have chosen [facility] for your upcoming procedure. The staff serving you hasbeen professionally trained to provide the highest quality care. We encourage you to ask questions and to let the staff know of any special needs,as we want your visit to be as comfortable as possible. Your procedure is scheduled on 01/24/2025 at [facility] . Please arrive at [facility] to [facility]: the registration area in the main lobby. Please be aware that your surgeon's office will reach out to you regarding any changes to your dateand time of surgery. Feel free to contact your surgeon's office 1-2 days prior to surgery to confirm. Parking: [facility]: the [email or web address] located at [address] [place] [address] (formerly [email or web address]). *Parking tickets can be validated at the Parking Kiosk near the Main Lobby. *Internet Marketing Assistant available 6:00am-6:00pm for a fee Fasting Instructions Prior to Surgery or Procedure Requiring Sedation IF YOUR PHYSICIAN HAS ALREADY PRESCRIBED A SPECIAL DIET OR BOWEL PREP PRIOR TO YOUR SURGERY OR PROCEDURE, PLEASE FOLLOW THE INSTRUCTIONS FROM YOUR PHYSICIAN'S OFFICE. (If times of surgery changes then the pre op diet instructions would need to be adjusted accordingly) DO NOT EAT OR DRINK ANYTHING (including gum, mints, water, etc.) after midnight the night before your procedure. You may brush your teeth and gargle on the morning of surgery, but do not swallow any water. If you have morning medications to take, you may take them with small sips of water. FAILURE TO FOLLOW YOUR DIET INSTRUCTIONS MAY LEAD TO A DELAY OR CANCELLATION OF YOUR SURGERY. Diabetic patients: Closely monitor your blood sugar and keep in the range your doctor recommends. If you have low blood sugar less than 70 prior to hospital arrival, drink a small amount of clear sugar containing fluid such as apple juice or clear soda, but no liquids containing pulp. Insulin Pump Instructions: Depending on the duration (less than 2 hours), the extent of your surgery and the type of post op pain medication you will receive, you may be able to continue wearing your insulin pump while you're in the hospital. You will need to be able to manage the pump on your own. Contact your diabetes care provider for insulin pump instructions before your surgery date. Continue your basal rates or adjust them according to your diabetes care provider instructions. Change insertion sit, tubing and reservoir the day before surgery. BRING EXTRA SUPPLIES WITH YOU [facility] (insertion set, tubing, reservoir, batteries). The [facility] does not have insulin pumpsupplies available. For surgery involving the abdomen, place the pump catheter in a site other than your abdomen (outerarm, upper hip or outer thigh). Remind the surgical staff that you are wearing an insulin pump when you arrive. You will be required to sign an Insulin Pump Patient Agreement form. Medication Instructions Bring a list of your current medications, along with the dose and frequency. Please include any vitamins, herbal supplements, and over the counter medications you may be taking. Your pre op nurse will need to know when your last dose of medication was taken. *MEDICATIONS TO TAKE MORNING OF SURGERY. Take the following medications morning of surgery with a small sip of water Bisoprolol Omeprazole. It is OK to take acetaminophen (Tylenol) if needed in the days leading up to surgery. Do Not Take spironolactone day of surgery -Aspirin: If you are taking aspirin, please consult with your prescribing physician as to if and when it should be stopped recommend 7 days -Blood thinners: (Apixaban): Consult with the prescribing physician, and follow the instructions asto when you should stop taking your blood thinner prior to surgery. Last dose recommended 01/20/2025 -Patients taking a Albuterol rescue inhaler (albuterol), please bring your medication with you. Jyjy-psx-Tdqwity Medication (OTC) Instructions: -Some dico-sqq-fulremn Medications may thin your blood: Stop taking bvcu-rov-lspnlye blood thinnersseven (7) to ten (10) days prior to your surgery. Examples of over the counter blood thinners include: NSAIDs (Motrin, Naproxen, Aleve, Advil, Ibuprofen). Last dose 01/17/2025 Vitamin E and-Herbal Supplements and multivitamins should be stopped two (2) weeks prior to surgery. -Cannabis products should be stopped two (2) weeks prior to surgery, unless you are taking cannabisto treat seizures or for medicinal purpose, then please stop on the day of surgery. -Chondroitin and glucosamine should be held for two (2) days prior to surgery. -Medication that are OK to continue through surgery: Fish oil, omege-3 fatty acids, melatonin, supplements used to treat a specific deficiency, like vitamin B12, iron, folate, calcium, magnesium or potassium. - General Pre-Procedure Instructions TRANSPORTATION ARRANGEMENTS: You will need a responsible adult to accompany you home from the hospital. You will not be permitted to drive, take a taxi, bus, Uber or Lyft by yourself, as these do notcount as reliable transportation. You will also need someone to stay with you for the first 24 hours after anesthesia. We will ask you to provide the name, and a working phone number for your designated contact. VISITOR POLICY: Same day surgery is allowing no more than (two) 2 adult visitors per patient at anytime. Prior to having any visitors, the patient will be checked in by the same day surgery nurse. Children under the age of 14 are not permitted to visit. Visiting hours in other areas of the hospital will vary depending on specific unit, or floor of the hospital. Masks are no longer required, exceptions may apply. WHAT TO BRING: Please bring a photo ID and insurance information. If you are being admitted to the hospital after surgery, you may bring a small overnight bag, but please do not bring any valuables. If you have obstructive sleep apnea (STEPHON) and use a CPAP or BiPAP device, please bring this with you and all associated equipment, except for the water. VALUABLES: Please do not bring valuables such as money, jewelry or credit cards with you. However, if you wear hearing aids, glasses, and/or dentures, bring these items along with a case for safekeeping. WHAT TO WEAR: Wear casual, comfortable, loose fitting clothing. You will be provided with a hospital gown prior to surgery. DO NOT WEAR: Any make-up, jewelry, body piercings, powders, perfumes/colognes, dark nail wolof. Please do SHOWER the evening before surgery and again the morning of surgery. I Simple soap, like Dial or Ivory, is adequate for all other surgeries. -Sleep on clean sheets the night before the procedure. -No pets in your bed the night the procedure. INCISIONS: If you have an incision after your procedure, be sure to sleep in clean sheets when you return home from surgery. Do note allow pets to sleep in bed with you until you have a follow-up appointment with your doctor. Day of Surgery Checklist: The morning of your surgery: ? Mousie your teeth. ? Shower: the morning of surgery with an antibacterial soap, such as Dial. If given Chlorhexidine (CHG) wash or mupirocin/Bactroban nasal ointment, please use as instructed. ? Remove: all makeup, nail wolof, jewelry, wristwatch, and body piercings. ? Do not use: powder, lotions, deodorant, perfume, and or cologne. ? What to wear: Wear casual, loose fitting, and comfortable clothing. Bring with you: ? List of your medications, dosage and how often you take the medication. ? List of jgbg-pbm-gbyxwiu medications and supplements, dose and how often you take the medication. ? Photo ID ? Insurance card ? Glasses and case ? Dentures and case ? Hearing aids and case ? Crutches, walker, or cane if you have these items and will need them after surgery. ? Specific medications as described above (rescue inhaler, transplant, seizure, Parkinson's and transplant medications) ? CPAP or BiPAP machine and all associated equipment except water ? Remote control for any implanted device (nerve stimulator, bladder stimulator, INSPIRE, etc) ? Other: ? For an overnight stay - pack a small bag of items that you may need (ex. change of clothing, toiletries, phone stripping shovel operator). Locker space is limited in the surgery area. Leave at home: ? Valuables: We recommend that you leave valuables (ex. money, jewelry, credit cards) at home or with your family. ? Contact lenses: Leave at home or bring a case for safe keeping. Additional Instructions FEELING SICK?: If you suspect that you have an illness/infection/rash currently, or, if you developan illness or rash prior to surgery, please contact your surgeon immediately. For questions please call [phone]. There is a nurse available Thursday through Thursday, 8 a.m. to5:30 p.m. The office is closed on weekends and holidays. After hours you may leave a voicemail, and someone will return your call on the next business day. In an EMERGENCY, if you must reach someone after our office is closed, you may call the same day surgery at [phone] from 5:30 to 8 p.m. After that time, urgent calls only may go to the operatingroom desk at [phone]. documented in this encounter H&P Notes * Thompson Hayes MD - 01/24/2025 10:08 AM EDT Urology H&P SUBJECTIVE CC: bladder cancer HPI: Trinidad Jung is a 69 y.o. female with a history of bladder cancer who presents to the hospital for transurethral resection of bladder tumor after recurrence found on office cystoscopy. PMH: Past Medical History: Diagnosis Date Abnormal gait walker on occas Arthritis Back pain sciatica Cataract Clotting disorder [facility] Constipation COPD (chronic obstructive pulmonary disease) ([facility]) CVA (cerebral vascular accident) ([facility] 2019 Diabetes ([facility] DVT (deep venous thrombosis) ([facility]) GERD (gastroesophageal reflux disease) Hypertension Kidney stone Liver disease fatty liver Lung nodule 04/2019 [facility] 1988 postop Sleep apnea no bipap PSH: Past Surgical History: Procedure Laterality Date bariatric surgery 1988 stomach stapling BRONCHOSCOPY EUS N/A 03/23/2019 Procedure: BRONCHOSCOPY EBUS; Surgeon: Harley Perez MD; Location: ENDOSCOPY; Service: Pulmonary; Laterality: N/A; CHOLECYSTECTOMY CYSTOSCOPY TRANSURETHRAL RESECTION BLADDER N/A 07/15/2024 Procedure: CYSTOSCOPY TRANSURETHRAL RESECTION BLADDER TUMOR; Surgeon: Trevon Grant MD; Location: [facility] OR; Service: Urology; Laterality: N/A; THORACOSCOPY Right 04/11/2019 Procedure: Right thoracoscopy lower lobectomy, possible thoracotomy; Surgeon: Ruma Yang MD; Location: OR; Service: General; Laterality: Right; TONSILLECTOMY TUBAL LIGATION MEDS: Home Medications Medication Sig Taking? Last Dose albuterol (PROVENTIL;VENTOLIN;PROAIR) 90 mcg/actuation inhaler Yes Past Week apixaban (ELIQUIS) 5 mg Tab Take 1 tablet (5 mg total) by mouth 2 times a day. Yes atorvastatin (LIPITOR) 80 MG tablet Take 1 tablet (80 mg total) by mouth at bedtime. Yes 01/01/2025 Bedtime FIASP U-100 INSULIN 100 unit/mL Soln INJECT 80 UNITS SUBCUTANEOUSLY EVERY DAY PER OMNIPOD DIRECTED (PER OMNIPOD MAX OF 80 UNITS PER DAY) Yes naproxen sodium (ANAPROX) 220 MG tablet Take 1 tablet (220 mg total) by mouth 2 times a day with meals. Yes Past Week omeprazole (PRILOSEC) 40 MG capsule TAKE ONE CAPSULE BY MOUTH EVERY DAY BEFORE a meal Yes spironolactone (ALDACTONE) 50 MG tablet Take 1 tablet (50 mg total) by mouth daily. Yes torsemide (DEMADEX) 20 MG tablet Take 1 tablet (20 mg total) by mouth daily. Yes Evening aspirin 81 MG EC tablet Take 1 tablet (81 mg total) by mouth daily. More than a month bisoprolol (ZEBETA) 5 MG tablet Take 1 tablet (5 mg total) by mouth daily. AM Morning oxybutynin (DITROPAN) 5 MG tablet Take 1 tablet (5 mg total) by mouth 3 times a day as needed. Patient not taking: Reported on 01/02/2025 Not Taking senna-docusate (SENNA-S) 8.6-50 mg per tablet Take 2 tablets by mouth 2 times a day. Patient taking differently: Take 1 tablet by mouth daily. TRULICITY 0.75 mg/0.5 mL PnIj Inject 0.75 mg subcutaneously once a week. UNABLE TO FIND Med Name: oxygen 2 liters per Nasal cannula as needed ALL: Allergies[1] SocHx: Social History Socioeconomic History Marital status: Spouse name: Not on file Number of children: Not on file Years of education: Not on file Highest education level: Not on file Occupational History Not on file Tobacco Use Smoking status: Former Current packs/day: 1.00 Average packs/day: 1 pack/day for 47.0 years (47.0 ttl pk-yrs) Types: Cigarettes Smokeless tobacco: Never Tobacco comments: currently 1ppd, on Chantix 2019 Vaping Use Vaping status: Never Used Substance and Sexual Activity Alcohol use: No Drug use: No Sexual activity: Yes Partners: Male control/protection: Post-menopausal Other Topics Concern Caffeine Use Not Asked Occupational Exposure Not Asked Exercise Not Asked Seat Belt Not Asked Social History Narrative Not on file Social Drivers of Health Financial Resource Strain: Not on file Food Insecurity: Not on file Transportation Needs: Not on file Physical Activity: Not on file Stress: Not on file Social Connections: Unknown (07/13/2023) Received from [facility] Family and Community Support Help with Day-to-Day Activities: Not on file Lonely or Isolated: Not on file Intimate Partner Violence: Not At Risk (07/15/2024) Humiliation, Afraid, Rape, and Kick questionnaire Fear of Current or Ex-Partner: No Emotionally Abused: No Physically Abused: No Sexually Abused: No Housing Stability: Unknown (07/13/2023) Received from [facility] Housing Stability Current Living Arrangements: Not on file Potentially Unsafe Housing Conditions: Not on file FHx: Family History Problem Relation Age of Onset Atrial fibrillation Mother Stroke Mother Cancer Mother breast cancer Cancer Father colon cancer ROS: As per HPI. Otherwise negative. OBJECTIVE VS: Vitals: 01/02/25 1336 Weight: (!) 228 lb (103.4 kg) Height: 5' 3 (1.6 m) I/O: No intake or output data in the 24 hours ending 01/24/25 0642 Physical Exam: Gen: NAD, A+Ox3 CV: RRR Resp: equal chest rise, no respiratory distress Abd: Soft, NT/ND Ext: Warm and well perfused Neuro: no focal deficits Labs: Lab Results Component Value Date WBC 7.9 07/17/2024 HGB 11.9 07/17/2024 HGB 13.5 04/11/2019 HCT 34.7 (L) 07/17/2024 HCT 41.3 04/11/2019 MCV 93.4 07/17/2024 PLT 169 07/17/2024 Lab Results Component Value Date NA 139 07/17/2024 K 3.4 (L) 07/17/2024 CL 99 07/17/2024 CO2 33 07/17/2024 PHOS 3.3 07/17/2024 BUN 17 07/17/2024 CREATININE 0.96 07/17/2024 No components found for: GLU Lab Results Component Value Date CALCIUM 8.1 (L) 07/17/2024 PHOS 3.3 07/17/2024 Lab Results Component Value Date MG 2.0 04/13/2019 Lab Results Component Value Date BILITOT 0.4 06/12/2024 AST 23 06/12/2024 ALT 10 06/12/2024 ALKPHOS 117 06/12/2024 Imaging: reviewed ASSESSMENT/PLAN Trinidad Jung is a 69 y.o. female with a history of bladder cancer who presents to the hospital for transurethral resection of bladder tumor after recurrence found on office cystoscopy. - Plan to proceed to OR - Patient consented and site marked - Antibiotics tonsorial artist to OR - Discussed the indications, risks, benefits, alternatives, and potential complications (bleeding, infection, injury to surrounding structures) of the procedure after detailing the pathophysiology ofthe patient's condition THOMPSON HAYES MD, MD Urology Resident #[id number] 01/24/2025 [1] Allergies Allergen Reactions Diclofenac Nausea And Vomiting and Other (See Comments) Latex Rash I get a rash if I wear latex bras for too long. Cosigned by Trevon Grant MD at 01/24/2025 12:08 PM EDT Associated attestation - Trevon Grant MD - 01/24/2025 12:08 PM EDT I agree. documented in this encounter Procedure Notes * Thompson Hayes MD - 01/24/2025 11:23 AM EDT OPERATIVE REPORT Date of Operation: 01/24/25 Preoperative Diagnosis: Bladder Tumor Postoperative Diagnosis: Bladder Tumor Procedure: Cystoscopy Transurethral resection of bladder tumor (small <2cm) Surgeon: Trevon Grant MD Assistants: THOMPSON HAYES MD Anesthesia: General endotracheal anesthesia Indications: Trinidad Jung is a 69 y.o. female with history of bladder cancer with recurrence found on office cystoscopy who presents for the above procedures. Informed consent was obtained and the risks, benefits, and details of the procedure were explained to the patient who elected to proceed. Details of Procedure: The patient was brought to the operating room and placed in the supine position on the operating room table. SCDs were placed on the lower extremities. Following induction of general anesthesia the patient was intubated without issue. Repositioned in dorsal lithotomy position. The patient was prepped and draped in the usual sterile fashion. A routine timeout was performed, confirming the patient,procedure, site, risk of fire, patient allergies and confirming that preoperative antibiotics had been administered prior to incision. A 22-Fr cystoscope was inserted into the urethra and advanced into the bladder. A thorough cystoscopic exam was performed with 30-degree and 70-degree lenses, with tumor located . Next the 26-Fr resectoscope sheath with visual obturator was advanced into the bladder. The ureteral orifices were visualized and were away from the area of resection. The monopolar loop element was assembled in the scope. The bladder tumor was carefully resected taking superficial to deep bites. Once resection was complete, the base of the tumor was fulgurated to achieve good hemostasis. The scope was removed. At the end of the procedure all instrument counts were correct. The patient tolerated the procedurewell, was extubated without issue in the operating room, and was transported to the PACU in stable condition. Dr. Trevon Grant MD, the attending surgeon, was present for the critical parts of the procedureand directed all clinical decision making. Findings: small raised papillary lesions in the left lateral wall just lateral to the left ureteralorifice that was resected and fulgurated Estimated Blood Loss: Minimal Drains: none Specimens: Bladder tumor for pathology Complications: None Disposition: Patient transferred to PACU. Follow up in 2 weeks to discuss pathology. THOMPSON HAYES MD Cosigned by Trevon Grant MD at 01/24/2025 12:08 PM EDT Associated attestation - Trevon Grant MD - 01/24/2025 12:08 PM EDT I was present for the nayak portions of the procedure and immediately available to assist during the remainder of the procedure documented in this encounter Nursing Notes * Luly Loya RN - 01/25/2025 2:49 PM EDT Patient discharge orders placed, discharge instructions provided. AVS signed. PIV removed. O2 tank delivered to bedside. Transport to take patient to [facility] for scheduled ride at 1530. * Ok Lorenzana RN - 01/24/2025 7:00 PM EDT Pt admitted from PACU to 2608. A&O x4, VSS on 2L O2, oriented to room and call light. CMU in place for O2 monitoring. documented in this encounter Miscellaneous Notes * Plan of Care - Brandon Olmedo RN - 01/25/2025 1:10 PM EDT Problem: Daily Care Goal: Daily care needs are met Description: Assess and monitor ability to perform self care and identify potential discharge needs. Outcome: Progressing Problem: Psychosocial Needs Goal: Demonstrates ability to cope with hospitalization/illness Description: Assess and monitor patients ability to cope with his/her illness. Outcome: Progressing * Plan of Care - Helen Mckeon RRT - 01/25/2025 12:15 PM EDT Problem: Inadequate Gas Exchange Goal: Patient is adequately oxygenated and ventilation is improved Description: Assess and monitor vital signs, oxygen saturation, respiratory status to include rate,depth, effort, and lung sounds, mental status, cyanosis, and labs (ABG's). Monitor effects of medications that may sedate the patient. Collaborate with respiratory therapy to administer medications and treatments. Outcome: Progressing * Care Coordination - Tammi Leyva - 01/25/2025 11:04 AM EDT [facility] Case Management/Social Work Department Progress Note Patient Information Patient Name: Trinidad Jung Hospital day: 0 Inpatient/Observation: Observation Level of Care: Admit date: 01/24/2025 Admission diagnosis: Malignant neoplasm of urinary bladder, unspecified site ([facility]) [C67.9] PMH: has a past medical history of Abnormal gait, Arthritis, Back pain, Cataract, Clotting disorder([facility]), Constipation, COPD (chronic obstructive pulmonary disease) ([facility]), CVA (cerebral vascular accident) ([facility]) (2019), Diabetes ([facility]), DVT (deep venous thrombosis) ([facility]), GERD (ga stroesophageal reflux disease), Hypertension, Kidney stone, Liver disease, Lung nodule (04/2019), Pulmonary embolism ([facility]) (1988), and Sleep apnea. PCP: ORLANDO ZHANG MD Home Pharmacy: [facility] [address] [facility] [address] [facility] - [place], [place] - [address] [facility] [address] [place] [id number] [facility] [address] [facility] [address] [id number] [address] [facility] [address] [facility] [id number] [facility] [address] [facility] [id number] Medical Insurance Coverage: Payor: HU[employer] MANAGED MEDICARE / Plan: [employer] GOLD PLUS MEDICARE / Product Type: Medicare [facility] Care / Other Pertinent Information Exhaust Tender met with Urology team for daily rounds and completed chart review. Patient is anticipated to be medically ready on this date. Pending oxygen delivery at this time through patient's homeoxygen, [facility] ([place], [place] [phone]). [facility] in [place], [place] ([phone]) to call SW once they are on the way to deliver the tank to patient at bedside. Novelty Twister Tender,Abiola Guillen, markedkayleeny as urgent as they are aware it is for a hospital discharge. Patient was transported to hospital yesterday by [facility] ([phone]). Patient will be transported home by [facility] around 3:30pm. SW confirmed this with graphotype operator,Arielle. Abiola Guillen with [facility] informed SW that oxygen will be delivered to patient at bedside prior to 3:30pm transport. personal care worker through [facility] to call SW once he is on his way/ at the hospital delivering oxygen to patient. UPDATE 2:43pm: SW met with patient at bedside to ensure she is aware of transport arriving at 3:30pm through [facility]. [facility] tank was at bedside in the room. Patient thanked SW for the help with discharge planning. No current questions/needs at this time. SW to follow up should any questions/new needs arise. Team messaged SW about patient needing CPAP at night. Per patient, insurance will not continue paying for her current CPAP. Says she's been without a CPAP for a while now. SW spoke with [employer] rep, Micheal [phone], regarding how to obtain new CPAP if insurance stops paying for one. Per Micheal, patient would need to be seen at sleep study clinic in order to get new orders for CPAP and patient would have to show compliance with utilizing the CPAP. SW included information on patient's AVS. Discharge Plan Anticipated discharge plan: Home Anticipated discharge date: 01/25 CM/SW will continue to follow and remain available for discharge planning needs. Tammi Leyva, APOORVA, FRICTION SAW OPERATOR Inpatient Exhaust Tender/Catering Director [phone] * Plan of Care - Toribio Jones RN - 01/24/2025 10:09 PM EDT Problem: High Fall Risk Precautions Goal: High Fall Risk Precautions Outcome: Progressing Problem: Additional High Fall Risk Precautions Goal: Additional High Fall Risk Precautions (consider the following) Outcome: Progressing * Plan of Care - Ok Lorenzana RN - 01/24/2025 7:38 PM EDT Problem: High Fall Risk Precautions Goal: High Fall Risk Precautions Outcome: Progressing Bed in lowest position, all items within reach. * Care Coordination - Tammi Leyva - 01/24/2025 4:18 PM EDT HEALTH Care Management/Social Work Assessment Patient Information Patient Name: Trinidad Jung Hospital Day: 0 Inpatient/Observation: Observation Admit Date: 01/24/2025 Admission Diagnosis: Malignant neoplasm of urinary bladder, unspecified site (CMS-HCC) [C67.9] Attending provider: Trevon Grant MD PCP: ORLANDO ZHANG MD Home Pharmacy: [facility] [address] [facility] [address] [facility] [address] [facility] - [place] - [place], [place] - [address] [facility] [address] [facility] [place] [address] [place] [address] [address] [facility] [address] [id number] [place], [place] - [address] [place] [id number] [facility] [id number] Issues related to obtaining medications: N/A Payor Information Medical Insurance Coverage: Payor: HUMANA MANAGED MEDICARE / Plan: HUMANA GOLD PLUS MEDICARE / Product Type: Medicare [facility] Care / Secondary Payor: N/A Functional Assessment Functional Assessment Assessment Information Obtained From:: Patient, Chart Review Current Mental Status: Awake, Oriented to Person, Oriented to Place, Oriented to Time, Oriented to Situation Activities of Daily Living: Independent Work History: Retired Marital Status: Number of children and their names: has adult children Relative Search Completed: No Demographics Correct:: Yes Current Living Arrangements Current Living Arrangements Current Living Arrangements: Home Type of Housing: House Who do you live with?: With Family What family member?: Spouse History of Falls?: No Community Services Community Services Community Services at Home: Respiratory Respiratory Company Name/Phone #: [employer] ([facility] ) Oxygen Needs: Oxygen Was any abuse reported by patient?: No Status & Connection to VA Services Status & Connection to VA Services Are you a ?: No Support Systems Emergency contact: Extended Emergency Contact Information Primary Emergency Contact: Pavel Jung [facility] Mobile Relation: Spouse Support Systems Primary Caregiver: Self, Family Marital Status: Number of children and their names: has adult children Relative Search Completed: No Demographics Correct:: Yes Expected Discharge Disposition: Home Next of Kin Relationship: Spouse Assessment Information Obtained From:: Patient, Chart Review Other Pertinent Information Per H&P documentation on 01/24/25: Trinidad Jung is a 69 y.o. female with a history of bladder cancer who presents to the hospital for transurethral resection of bladder tumor after recurrence found on office cystoscopy. Catering Director/Exhaust Tender Kathryn Leyva met with patient at bedside to complete psychosocial assessment for discharge planning as part of routine care. SW introduced herself and role of SW in hospital. SW verified demographic information. Patient lives in a home in [place], [place] with her spouse. Patient reported she has a few adult children. Pt denied any concerns for her safety or for abuse at home. Pt denied having any recent falls at home. Pt reported that she was independent with ADLs prior to admission. Patient reported she uses DME at home. Says she uses a walker as needed and has a walk-inshower with a shower chair. Pt denied using community resources to meet her needs at this time. Patient reported she is retired. Patient reported she is not a . Patient denied history of or current mental health concerns or diagnoses. Patient denied history of or current alcohol abuse, tobacco use, and/or drug/illicit substance use. Patient denied having any past/current need for dialysis. Patient reported she is on oxygen (as needed) through [employer] ). Patient reported she does not have a history of home care services. SW inquired regarding Advance Directives paperwork. Patient reported she does not have paperwork completed. Patient is aware that her legal next of kin is her spouse, Pavel Jung [phone]. Advance Directives (For Healthcare) Advance Directive: Patient does not have advance directive Discharge Plan Met with patient to initiate discussion regarding discharge planning. Introduced self and role of case management/social work and provided contact information. Exhaust Tender met with Urology team for daily rounds and completed chart review. Patient is not anticipated to be medically ready for at least 1 more day. Team weaning patient from oxygen. Patient rodolfo PRN oxygen through [employer] [phone]). [place] [employer] will be dropping off an oxygen tank to patient at bedside tomorrow. SW to call them tomorrow ([phone]) if patient's bed locationchanges. SW provided [employer] with this web content writer's direct line so they can call when they are on the way to drop off the tank. Tank will be good for 4 hours continuously. Patient's transport home will only be an hour an 30 minutes. Patient stated she has transport through her insurance; However, she used [facility] [phone] and is ok to use them for ride back home if insurance will not provide a ride home. SW to coordinate with oxygen company tomorrow morning as to when there will be anticipated delivery time. Barriers to Discharge Barriers to Discharge: Transportation Anticipated Discharge Plan: Home Anticipated Discharge Date: 01/25 Anticipated Transportation: insurance vs community transport Patient/Family aware and taking part in the discharge plan. Patient/family educated that once post-acute care needs have been identified, a provider list applicable to the identified post-acute care needs as well as the insurance provider will be provided, and patient/family have the freedom to choose their provider(s); financial interest(s) are disclosed as appropriate. APOORVA Viveros, [facility] Inpatient Exhaust Tender/Catering Director [phone] documented in this encounter Plan of Treatment Not on file documented as of this encounter Procedures Procedure Name Priority Date/Time Associated Diagnosis Comments RHYTHM STRIPS - SCAN 01/27/2025 3:49 AM EDT POC GLU MONITORING DEVICE Routine 01/25/2025 12:02 PM EDT POC GLU MONITORING DEVICE Routine 01/25/2025 8:16 AM EDT HEMOGLOBIN A1C Routine 01/25/2025 3:38 AM EDT POC GLU MONITORING DEVICE Routine 01/25/2025 3:09 AM EDT POC GLU MONITORING DEVICE Routine 01/24/2025 10:08 PM EDT POC GLU MONITORING DEVICE Routine 01/24/2025 7:45 PM EDT POC GLU MONITORING DEVICE Routine 01/24/2025 11:41 AM EDT CYSTOSCOPY TRANSURETHRAL RESECTION BLADDER 01/24/2025 10:39 AM EDT Malignant neoplasm of urinary bladder, unspecified site (CMS-HCC) Special Needs 23 HR OBSERVATION- #LW POC GLU MONITORING DEVICE Routine 01/24/2025 9:21 AM EDT SURGICAL PATHOLOGY EXAM Routine 01/24/2025 12:00 AM EDT documented in this encounter Results * Rhythm Strips - scan (01/27/2025 3:49 AM EDT) us Scanning Uchhim SCAN DOCS - NO RESULTS Final Res ult * (ABNORMAL) POC Glucose Monitoring Device (01/25/2025 12:02 PM EDT) POC Glucose Monitoring Device 175(H) 70 - 100 mg/dL 01/25/2025 12:03 PM EDT [facility] Blood 01/25/2025 12:0 2 PM EDT 01/25/2025 12:03 PM EDT us Trevon Grant MD POINT OF CARE TEST ORDERABLES Final Result [facility] [address] [place], [place] [address] * (ABNORMAL) POC Glucose Monitoring Device (01/25/2025 8:16 AM EDT) POC Glucose Monitoring Device 200(H) 70 - 100 mg/dL 01/25/2025 8:16 AM EDT [facility] Blood 01/25/2025 8:16 AM EDT 01/25/2025 8:16 AM EDT Trevon Grant MD POINT OF CARE TEST ORDERABLES Final Result [facility] [address] [facility] * (ABNORMAL) Hemoglobin A1c (01/25/2025 3:38 AM EDT) Hemoglobin A1C 6.8(H) 4.0 - 5.6 % 01/25/2025 4:47 AM EDT [facility] Comment: Hemoglobin A1c Interpretation Guidelines: Normal: <5.7% Prediabetes: 5.7-6.4% Diabetes: >6.4% Diagnosis requires two independent tests unless clinical diagnosis is clear. Some clinical conditions, particularly anemias and hemoglobinopathies, may interfere with the diagnostic accuracy of hemoglobin A1c. The recommended goal for diabetic glycemic control (Hemoglobin A1c <7.0%) should be individualized based on duration of diabetes, age/life expectancy, comorbid conditions, known CVD or advanced microvascular complications, hypoglycemia unawareness, and other individual patient considerations. Whole Blood 01/25/2025 3:38 AM EDT 01/25/2025 3:58 AM EDT Thompson Hayes MD LAB BLOOD ORDERABLES Final Resul t [facility] [address] [facility] * (ABNORMAL) POC Glucose Monitoring Device (01/25/2025 3:09 AM EDT) POC Glucose Monitoring Device 196(H) 70 - 100 mg/dL 01/25/2025 3:20 AM EDT [facility] Blood 01/25/2025 3:09 AM EDT 01/25/2025 3:20 AM EDT us Trevon Grant MD POINT OF CARE TEST ORDERABLES Final Result Performing Organization Address City/[facility]/ZIP Co de Phone Number [facility] [address] [facility]. [address] * (ABNORMAL) POC Glucose Monitoring Device (01/24/2025 10:08 PM EDT) POC Glucose Monitoring Device 250(H) 70 - 100 mg/dL 01/24/2025 10:09 PM EDT [facility] Blood 01/24/2025 10:0 8 PM EDT 01/24/2025 10:09 PM EDT us Trevon Grant MD POINT OF CARE TEST ORDERABLES Final Result Performing Organization Address City/[facility] Co de Phone Number [facility] [address] [facility]. [address] * (ABNORMAL) POC Glucose Monitoring Device (01/24/2025 7:45 PM EDT) POC Glucose Monitoring Device 317(H) 70 - 100 mg/dL 01/24/2025 7:46 PM EDT [facility] Blood 01/24/2025 7:45 PM EDT 01/24/2025 7:46 PM EDT us Trevon Grant MD POINT OF CARE TEST ORDERABLES Final Result Performing Organization Address City/[facility]/ZIP Co de Phone Number [facility] [address] [facility]. [address] * (ABNORMAL) POC Glucose Monitoring Device (01/24/2025 11:41 AM EDT) POC Glucose Monitoring Device 172(H) 70 - 100 mg/dL 01/24/2025 11:42 AM EDT [facility] Blood 01/24/2025 11:4 1 AM EDT 01/24/2025 11:42 AM EDT us Trevon Grant MD POINT OF CARE TEST ORDERABLES Final Result Performing Organization Address City/[facility]/ZIP Co de Phone Number [facility] [address] * (ABNORMAL) POC Glucose Monitoring Device (01/24/2025 9:21 AM EDT) POC Glucose Monitoring Device 187(H) 70 - 100 mg/dL 01/24/2025 9:23 AM EDT [facility] Blood 01/24/2025 9:21 AM EDT 01/24/2025 9:23 AM EDT us Treovn Grant MD POINT OF CARE TEST ORDERABLES Final Result Performing Organization Address [facility] Co de Phone Number [facility] [address] [facility] * Surgical Pathology Exam (01/24/2025 12:00 AM EDT) 01/24/2025 01/24/2025 Narrative [facility] - 01/24/2025 12:00 AM EDT CASE: [id number] PATIENT: TRINIDAD JUNG Clinical History: cystoscopy transurethral resection bladder Pre-Operative Diagnosis: malignant neoplasm of urinary bladder, unspecified site Post-Operative Diagnosis: same Specimen(s) Submitted: A. bladder tumor CPT Code(s): 51399 X 1 Additional Information: FINAL DIAGNOSIS: Bladder, TURBT: Non-invasive papillary low-grade urothelial carcinoma. Benign muscularis propria is present. Comment: Multiple step levels were examined (tissue block exhausted). Gross Description: Received in formalin, labeled with the patient's name Trinidad Jung and bladder tumor , are two rubbery kaufman-white tissue fragments measuring 0.8 and 0.9 cm in greatest dimension, which are entirely submitted in cassette [id number]. (HARESH Ruiz/jerod) Microscopic Description: Microscopic examination was performed and is reflected in the above diagnosis. I, the attending pathologist, have personally reviewed all prosector/resident work and pathology slides to determine final diagnosis. Final Diagnosis performed by Ava Montenegro M.D. Pathologist Electronically signed 01/26/2025 10:52:45 AM The Pathologist signing this report is located at [facility], [address] [place] [address], [place], [place], [facility], , CLIA ID: [id number] us Trevon Grant MD PATHOLOGY/CYTOLOGY ORDERABLES Final Result [facility] documented in this encounter Visit Diagnoses Diagnosis Malignant neoplasm of urinary bladder, unspecified site ([facility]) documented in this encounter Administered Medications Inactive Administered Medications - up to 3 most recent administrations Medication Order MAR Action Action Date Dose Rate Site acetaminophen (TYLENOL) tablet 650 mg 650 mg, Oral, Every 4 hours PRN, Body Temperature > 101F, NRS 1-10; use prior to opioids if opiods are also ordered, then reassess pain score within 90 minutes, Starting on Thu01/24/25 at 1617, Maximum dose of acetaminophen is 4000 mg (4 grams) from all sources in 24 hours. acetaminophen (TYLENOL) tablet 975 mg 975 mg, Oral, Once as needed, mild pain (NRS 1-3); no comparable CPOT score, moderate pain (NRS 4-6) or if patient is non-communicative (CPOT 3-5), severe pain (NRS 7-10) or if patient is non-communicative (CPOT 6-8), Starting on Thu01/24/25 at 1021, For 1 dose, Maximum dose of acetaminophen is 4000 mg (4 grams) from all sources in 24 hours., PACU Given 01/24/2025 2:03 PM EDT 975 mg aspirin EC tablet 81 mg 81 mg, Oral, Daily, First dose on Thu01/24/25 at 1630, DO NOT CRUSH OR CHEW Given 01/25/2025 9:19 AM EDT 81 mg Given 01/24/2025 6:59 PM EDT 81 mg atorvastatin (LIPITOR) tablet 80 mg 80 mg, Oral, At Bedtime (2099), First dose on Thu01/24/25 at 2100 Given 01/24/2025 8:56 PM EDT 80 mg bisoprolol (ZEBETA) tablet 5 mg 5 mg, Oral, Daily, First dose on Thu01/25/25 at 0900 Given 01/25/2025 9:19 AM EDT 5 mg fentaNYL (SUBLIMAZE) injection 12.5 mcg 12.5 mcg, Intravenous, Every 5 min PRN, moderate pain (NRS 4-6) or if patient is non-communicative (CPOT 3-5), and POSS score of 1 to 2, Starting on Thu01/24/25 at 1021, For 48 hours, If on IV and PO pain meds, use IV only if patient is unable to take oral medications. May alternate Fentanyl with HYDROmorphone or MORPHine (if ordered) as needed for uncontrolled pain. If POSS score is 4, call physician. May administer in PACU or prior to discharge. HIGH ALERT MEDICATION, PACU Given 01/24/2025 12:05 PM EDT 12.5 mcg fentaNYL (SUBLIMAZE) injection 25 mcg 25 mcg, Intravenous, Every 5 min PRN, severe pain (NRS 7-10) or if patient is non-communicative (CPOT 6-8), and POSS score 1 OR 2, Starting on Thu01/24/25 at 1021, For 48 hours, If on IV and PO pain meds, use IV only if patient is unable to take oral medications. May alternate Fentanyl with HYDROmorphone or MORPHine (if ordered) as needed for uncontrolled pain. If POSS score is 4, call physician. May administer in PACU or prior to discharge. HIGH ALERT MEDICATION, PACU Given 01/24/2025 11:41 AM EDT 25 mcg heparin (porcine) injection 5,000 Units 5,000 Units, Subcutaneous, Every 8 hours scheduled (3 times per day), First dose on Thu01/24/25 at 2100 Given 01/25/2025 12:07 PM EDT 5,000 Units Left Arm Given 01/25/2025 4:48 AM EDT 5,000 Units L eft Arm Given 01/24/2025 8:56 PM EDT 5,000 Units L eft Arm insulin lispro (humaLOG/ADMELOG) injection 0-7 Units 0-7 Units, Subcutaneous, Every 2 hours, First dose on Thu01/24/25 at 1030, Administer 1 units for BG 180-199, 3 units for BG 200-249, 5 units for BG 250-299 or 7 units for BG greater than or equal to 300. Administer in SDS or OR., Pre-op Given 01/24/2025 10:07 AM EDT 1 Units Right Arm insulin lispro (humaLOG/ADMELOG) injection 0-7 Units 0-7 Units, Subcutaneous, At Bedtime (2100), First dose on Thu01/24/25 at 2100, HIGH ALERT MEDICATION Onset of action is rapid. Give dose 5-10 minutes before meal. Have meal at bedside. Given 01/24/2025 10:14 PM EDT 3 Units Left Arm insulin lispro (humaLOG/ADMELOG) injection 0-8 Units 0-8 Units, Subcutaneous, 3 times daily before meals, First dose on Thu01/24/25 at 1800, HIGH ALERT MEDICATION Given 01/25/2025 12:08 PM EDT 1 Units Left Arm Given 01/25/2025 9:27 AM EDT 3 Units Le ft Arm Given 01/24/2025 7:47 PM EDT 7 Units Le ft Arm ipratropium-albuteroL (DUO-NEB) 0.5 mg-3 mg(2.5 mg base)/3 mL nebulizer solution 3 mL 3 mL, Nebulization, RT Once, On Thu01/24/25 at 1030, For 1 dose Given 01/24/2025 10:08 AM EDT 3 mLs lactated Ringers IV infusion 20 mL/hr, Intravenous, Continuous, Starting on Thu01/24/25 at 0930, Pre-opIndications:Malignant neoplasm of urinary bladder, unspecified site ([facility]CC) New Bag 01/24/2025 10:38 AM EDT ondansetron (ZOFRAN) injection 4 mg 4 mg, Intravenous, Every 6 hours PRN, Nausea and/or Vomiting, Starting on Thu01/24/25 at 1618, If patient not able to tolerate PO, administer IV. pantoprazole (PROTONIX) EC tablet 40 mg 40 mg, Oral, Daily6, First dose on Thu01/24/25 at 1630, Therapeutic Interchange for omeprazole 40mg Oral = pantoprazole 40mg Oral Do Not Crush Given 01/25/2025 4:50 AM EDT 40 mg senna-docusate (SENNA-S) 8.6-50 mg per tablet 1 tablet 1 tablet, Oral, Daily, First dose on Thu01/24/25 at 1600 Given 01/24/2025 6:59 PM EDT 1 tablet spironolactone (ALDACTONE) tablet 50 mg 50 mg, Oral, Daily, First dose on Thu01/24/25 at 1630, LEVEL 2 HAZARDOUS MEDICATION; USE APPROPRIATE Personal Protection Equipment. DO NOT CRUSH/SWALLOW WHOLE Given 01/25/2025 9:19 AM EDT 50 mg torsemide (DEMADEX) tablet 20 mg 20 mg, Oral, Daily, First dose on Thu01/24/25 at 1630 Given 01/25/2025 9:26 AM EDT 20 mg documented in this encounter Active and Recently Administered Medications Times are shown in EDT. Scheduled Medication Order 01/23/2025 01/24/2025 01/25/2025 aspirin EC tablet 81 mg 81 mg, Oral, Daily, First dose on Thu01/24/25 at 1630, DO NOT CRUSH OR CHEW 1859 (Given - Provider: Ok Lorenzana RN) 09 (Given - Provider: Brandon Olmedo, ÁNGELA) atorvastatin (LIPITOR) tablet 80 mg 80 mg, Oral, At Bedtime (2099), First dose on Thu01/24/25 at 2099 2055 (Given - Provider: Toribio Jones RN) bisoprolol (ZEBETA) tablet 5 mg 5 mg, Oral, Daily, First dose on Thu01/25/25 at 0900 09 (Given - Provid er: Brandon Olmedo RN) heparin (porcine) injection 5,000 Units 5,000 Units, Subcutaneous, Every 8 hours scheduled (3 times per day), First dose on Thu01/24/25 at 2099 2055 (Given - Provider: Toribio Jones RN) 447 (Given - Provider: Toribio Jones, RN)1207 (Given - Provider: Brandon Olmedo, RN) insulin lispro (humaLOG/ADMELOG) injection 0-7 Units (CANCELED) 0-7 Units, Subcutaneous, Every 2 hours, First dose on Thu01/24/25 at 1030, Administer 1 units for BG 180-199, 3 units for BG 200-249, 5 units for BG 250-299 or 7 units for BG greater than or equal to 300. Administer in SDS or OR., Pre-op 1007 (Given - Provider: Tammi Mars RN)1403 (Not Given - Provider: Tiffani Virk RN - Reason: Order parameters not met)184 (Not Given - Provider: Ok Lorenzana RN - Reason: Transfer to a Procedural area)1855 (Not Given - Provider: Ok Lorenzana RN - Reason: Transfer to a Procedural area)185 (Not Given - Provider: Ok Lorenzana RN - Reason: Transfer to a Procedural area) insulin lispro (humaLOG/ADMELOG) injection 0-7 Units(Linked Group 1) 0-7 Units, Subcutaneous, At Bedtime (2100), First dose on Thu01/24/25 at 2100, HIGH ALERT MEDICATION Onset of action is rapid. Give dose 5-10 minutes before meal. Have meal at bedside. 2213 (Given - Provider: Toribio Jones RN) insulin lispro (humaLOG/ADMELOG) injection 0-8 Units 0-8 Units, Subcutaneous, 3 times daily before meals, First dose on Thu01/24/25 at 1800, HIGH ALERT MEDICATION 1946 (Given - Provider: Ok Lorenzana, ÁNGELA) 0927 (Given - Provider: Brandon Olmedo, RN)1208 (Given - Provider: Brandon Olmedo, RN) ipratropium-albuteroL (DUO-NEB) 0.5 mg-3 mg(2.5 mg base)/3 mL nebulizer solution 3 mL (COMPLETED) 3 mL, Nebulization, RT Once, On Thu01/24/25 at 1030, For 1 dose 1008 (Given - Provider: Tammi Mars RN) pantoprazole (PROTONIX) EC tablet 40 mg 40 mg, Oral, Daily6, First dose on Thu01/24/25 at 1630, Therapeutic Interchange for omeprazole 40mg Oral = pantoprazole 40mg Oral Do Not Crush 1856 (Not Given - Provider: Ok Lorenzana RN - Reason: Other - Comment: pt states she took this AM) 0450 (Given - Provider: Toribio Jones RN) senna-docusate (SENNA-S) 8.6-50 mg per tablet 1 tablet 1 tablet, Oral, Daily, First dose on Thu01/24/25 at 1600 1859 (Given - Provider: Ok Lorenzana, RN) spironolactone (ALDACTONE) tablet 50 mg 50 mg, Oral, Daily, First dose on Thu01/24/25 at 1630, LEVEL 2 HAZARDOUS MEDICATION; USE APPROPRIATE Personal Protection Equipment. DO NOT CRUSH/SWALLOW WHOLE 185 (Not Given - Provider: Ok Lorenzana RN - Reason: Patient/family refused) 0919 (Given - Provider: Brandon Olmedo, ÁNGELA) torsemide (DEMADEX) tablet 20 mg 20 mg, Oral, Daily, First dose on Thu01/24/25 at 1630 1857 (Not Given - Provider: Ok Lorenzana RN - Reason: Patient/family refused) 0926 (Given - Provider: Brandon Olmeod, ÁNGELA) Continuous Medication Order 01/23/2025 01/24/2025 01/25/2025 lactated Ringers IV infusion 20 mL/hr, Intravenous, Continuous, Starting on Thu01/24/25 at 0930, Pre-op 1038 (New Bag - Provider: Roseanna Shell CRNA) PRN Medication Order 01/23/2025 01/24/2025 01/25/2025 acetaminophen (TYLENOL) tablet 650 mg 650 mg, Oral, Every 4 hours PRN, Body Temperature > 101F, NRS 1-10; use prior to opioids if opiods are also ordered, then reassess pain score within 90 minutes, Starting on Thu01/24/25 at 1617, Maximum dose of acetaminophen is 4000 mg (4 grams) from all sources in 24 hours. acetaminophen (TYLENOL) tablet 975 mg (COMPLETED) 975 mg, Oral, Once as needed, mild pain (NRS 1-3); no comparable CPOT score, moderate pain (NRS 4-6) or if patient is non-communicative (CPOT 3-5), severe pain (NRS 7-10) or if patient is non-communicative (CPOT 6-8), Starting on Thu01/24/25 at 1021, For 1 dose, Maximum dose of acetaminophen is 4000 mg (4 grams) from all sources in 24 hours., PACU 1403 (Given - Provider: Tiffani Virk RN) albuterol (UMNEUACDI-SITKHV-VOTSNHKD) 90 mcg/actuation inhaler 2 puff 2 puff, Inhalation, RT every 4 hours PRN, Wheezing, Shortness of Breath, Starting on Thu01/24/25 at 1619, SHAKE WELL ceFAZolin (ANCEF) 2 g in sodium chloride 0.9% 100 mL ADDaptor IVPB (COMPLETED) Intravenous, at 200 mL/hr, call center representative to O.R., call center representative to O.R., Starting on Thu01/24/25 at 0906, For 1 dose, Begin infusion 20-60 minutes prior to incision. For Patient Weight Greater 81-119 kg Use ADDaptor product - Mix Thoroughly Before Administration, Pre-op, Indication? Prophylaxis-Surgical, Site of diagnosed infections (select all that apply): Skin/Soft Tissue 1038 (New Bag - Provider: Roseanna Shell CRNA) fentaNYL (SUBLIMAZE) injection 12.5 mcg (CANCELED)(Linked Group 2) 12.5 mcg, Intravenous, Every 5 min PRN, moderate pain (NRS 4-6) or if patient is non-communicative (CPOT 3-5), and POSS score of 1 to 2, Starting on Thu01/24/25 at 1021, For 48 hours, If on IV and PO pain meds, use IV only if patient is unable to take oral medications. May alternate Fentanyl with HYDROmorphone or MORPHine (if ordered) as needed for uncontrolled pain. If POSS score is 4, call physician. May administer in PACU or prior to discharge. HIGH ALERT MEDICATION, PACU 1141 (See Alternative - Provider: Tiffani Virk RN)1205 (Given - Provider: Tiffani Virk RN) fentaNYL (SUBLIMAZE) injection 25 mcg (CANCELED)(Linked Group 2) 25 mcg, Intravenous, Every 5 min PRN, severe pain (NRS 7-10) or if patient is non-communicative (CPOT 6-8), and POSS score 1 OR 2, Starting on Thu01/24/25 at 1021, For 48 hours, If on IV and PO pain meds, use IV only if patient is unable to take oral medications. May alternate Fentanyl with HYDROmorphone or MORPHine (if ordered) as needed for uncontrolled pain. If POSS score is 4, call physician. May administer in PACU or prior to discharge. HIGH ALERT MEDICATION, PACU 1141 (Given - Provider: Tiffani Virk, ÁNGELA)1205 (See Alternative - Provider: Tiffani Virk RN) ondansetron (ZOFRAN) injection 4 mg 4 mg, Intravenous, Every 6 hours PRN, Nausea and/or Vomiting, Starting on Thu01/24/25 at 1618, If patient not able to tolerate PO, administer IV. sodium chloride 0.9 % irrigation (CANCELED) As needed, Starting on Thu01/24/25 at 1124, Intra-op 1124 (Given - Provider: Alka Hayes MD) Linked Groups Order Group 1: insulin lispro (humaLOG/ADMELOG) injection 0-7 UnitsJump to med 0-7 Units, Subcutaneous, At Bedtime (2100), First dose on Thu01/24/25 at 2100, HIGH ALERT MEDICATION Onset of action is rapid. Give dose 5-10 minutes before meal. Have meal at bedside. And Fingerstick Glucose, Overnight (If correction given) (CANCELED) Routine, Daily at 0300 PRN, Starting on Thu01/25/25 at 0300, Until Specified Group 2: fentaNYL (SUBLIMAZE) injection 12.5 mcg (CANCELED)Jump to med 12.5 mcg, Intravenous, Every 5 min PRN, moderate pain (NRS 4-6) or if patient is non-communicative (CPOT 3-5), and POSS score of 1 to 2, Starting on Thu01/24/25 at 1021, For 48 hours, If on IV and PO pain meds, use IV only if patient is unable to take oral medications. May alternate Fentanyl with HYDROmorphone or MORPHine (if ordered) as needed for uncontrolled pain. If POSS score is 4, call physician. May administer in PACU or prior to discharge. HIGH ALERT MEDICATION, PACU Or fentaNYL (SUBLIMAZE) injection 12.5 mcg (CANCELED) 12.5 mcg, Intravenous, Every 5 min PRN, severe pain (NRS 7-10) or if patient is non-communicative (CPOT 6-8), and POSS score EQUAL to 3, Starting on Thu01/24/25 at 1021, For 48 hours, If on IV and PO pain meds, use IV only if patient is unable to take oral medications. May alternate Fentanyl with HYDROmorphone or MORPHine (if ordered) as needed for uncontrolled pain. If POSS score is 4, call physician. May administer in PACU or prior to discharge. HIGH ALERT MEDICATION, PACU Or fentaNYL (SUBLIMAZE) injection 25 mcg (CANCELED)Jump to med 25 mcg, Intravenous, Every 5 min PRN, severe pain (NRS 7-10) or if patient is non-communicative (CPOT 6-8), and POSS score 1 OR 2, Starting on Thu01/24/25 at 1021, For 48 hours, If on IV and PO pain meds, use IV only if patient is unable to take oral medications. May alternate Fentanyl with HYDROmorphone or MORPHine (if ordered) as needed for uncontrolled pain. If POSS score is 4, call physician. May administer in PACU or prior to discharge. HIGH ALERT MEDICATION, PACU documented in this encounter Care Teams Associate Professor Of Biostatistics Relationship Specialty Start Date End Date Orlando Zhang MD [address] [place] [address] PCP - General Family Medicine 03/01/19 documented as of this encounter
--- OUTSIDE RECORDS SUMMARY | 2025-01-24 10:38 | XMS_ITS | Encounter Summary ---
Author Organization [facility] Address [address] [place] [id number] Care Team Providers Care Truck Striker Name Role Phone Orlando Zhang MD Primary Care Provider [phone] Source Comments This information has been disclosed [...] release of HIV test results or diagnoses. [id number] Health Reason for Visit * Auth/Cert (Routine) Specialty Diagnoses / Procedures Referred By Mattie t Referred To Contact Diagnoses Malignant neoplasm of urinary bladder, unspecified site ([facility]) [C67.9] Procedures CYSTOSCOPY TRANSURETHRAL RESECTION BLADDER [facility] [address] [place] [address] Phone: tel: Referral ID Status Reason Start Date Expiration Date Visits Re quested Visits Authorized [id number] 1 1 Encounter Details Date Type Department Care Team (Late st Contact Info) Description 01/24/2025 10:38 AM EDT Anesthesia Event [facility] [address] [place] [address] Juvencio Martinez MD [address] [place] [place] [id number] Anesthesia Record Procedure Summary Procedure Name Responsible Anesthesiologist Anesthesia Start Time Anesthesia Stop Time CYSTOSCOPY TRANSURETHRAL RESECTION BLADDER (Bladder) Juvencio Martinez MD 01/24/25 1038 01/24/25 1133 Events Date Time Event Comment 01/24/2025 0951 1038 An Start 1038 An Start Data 1046 An Induction 1049 An Intubation 1059 Time Out 1111 An Emergence 1122 Extubation 1123 an stop data 1133 An Stop Meds Name Total ceFAZolin (ANCEF) 2 g in sodium chloride 0.9% 100 mL ADDaptor IVPB 2 g lidocaine (XYLOCAINE) 20 mg/mL (2%) inje ction 100 mg propofol (DIPRIVAN) 10 mg/ml IV injectio n (BOLUS) 120 mg rocuronium (ZEMURON) 10 mg/mL injection 50 mg ondansetron (ZOFRAN) 4 mg/2 mL injection 4 mg dexamethasone (DECADRON) injection 4 mg/ mL 4 mg albuterol (PROVENTIL;VENTOLIN;PROAIR) in haler 14 puff sugammadex (BRIDION) IV injection 200 mg lactated Ringers IV infusion 0 mL * Agents Name N2O O2 N2O Air Sevoflurane * Blood No blood administrations on file. Lines, Drains, and Airways Type Details Placement Removal Incision 07/15/24; 1032; Vagina; N/A; NO DRESSING REQUIRED 07/15/24 1032 by Aranza Larose RN Urethral Catheter 07/15/24; Non-latex; 22 Fr.; Other (Comment) (PATIENT UNDER GENERAL ANES.); Not present upon assessment 07/15/24 0000 by Aranza Larose RN 01/24/25 1848 by Inessa Parks RN Peripheral IV 01/24/25; 0924; 22 G ; Left, Posterior; Forearm; Chlorhexidine; Standard; Tolerated well 01/24/25 0924 by Kimberley Medeiros RN 01/25/25 1422 by Luly Loya RN Anesthesia Airway Device 01/24/25; 1049; I.V.; Standard; Moderate Mask Ventilation; 2 person mask ventilation, 90 mm oral airway (yellow), jaw thrust; Slade Video MAC; 3; Oral; Grade I View; ETT; 7 mm; Cuffed; 7 mL; 21 cm; Stylet Standard; 1; RAG GRADER; RHugo Shell, RAG GRADER; Capnograph; Yes; 01/24/25; 1122 01/24/25 1049 by Roseanna Shell CRNA 01/24/25 1122 by Roseanna Shell CRNA documented in this encounter Social History Tobacco Use Types Packs/Day Years Used Date Smoking Tobacco: Former Cigarettes 1 47 Smokeless Tobacco: Never Comments:currently 1ppd, on 2018 Alcohol Use Standard Drinks/Week Comments No 0 (1 standard drink = 0.6 oz pur e alcohol) Utilities Answer Date Recorded In the past 12 months has th e [employer], gas, oil, or water [employer] threatened to shut off services in your [...] any time in the past 12 m [facility], were you homeless or living in a retirement (including now)? No 01/24/2025 Comments No Sex and Gender Information Value Date Recorded Sex Assigned at Not on file Legal Sex Female 7:42 PM EST Gender Identity Not on file Sexual Orientation Not on file documented as of this encounter Progress Notes * Juvencio Martinez MD - 01/24/2025 1:25 PM EDT Anesthesia Post Note Patient: Erin Jung Procedure(s) Performed: Procedure(s): CYSTOSCOPY TRANSURETHRAL RESECTION BLADDER Anesthesia type: general Patient location: PACU Airway: Patent Post pain: Adequate analgesia Nausea / Vomiting: Absent Post-operative Hydration Status: Adequate Post assessment: no apparent anesthetic complications Last Vitals: Vitals: 01/24/25 1141 01/24/25 1145 01/24/25 1200 01/24/25 1205 BP: 145/70 127/71 BP Location: Patient Position: Pulse: 71 72 71 69 Resp: 19 24 Temp: TempSrc: SpO2: 99% 98% 97% 99% Weight: Height: Last Temperature: 98.5 ??F (36.9 ??C) (01/24/2025 11:30 AM) Post vital signs: stable Level of consciousness: awake Complications: There were no known notable events for this encounter. documented in this encounter H&P Notes * Juvencio Martinez MD - 01/24/2025 9:47 AM EDT Images from the original note were not included. [facility] DEPARTMENT OF ANESTHESIOLOGY PRE-PROCEDURAL EVALUATION Erin Jung is a 69 y.o. year old female presenting for: Procedure(s): CYSTOSCOPY TRANSURETHRAL RESECTION BLADDER Surgeon: Trevon Grant MD Chief Complaint Malignant neoplasm of urinary bladder, unspecified site (CMS-HCC) [C67.9] Review of Systems Anesthesia Evaluation Patient summary reviewed and nursing notes reviewed. I have reviewed the History and Physical Exam, any relevant changes are noted in the anesthesia pre-operative evaluation. Cardiovascular: Hypertension is. (-) past TX, CAD, cardiomyopathy, CABG/stent, dysrhythmias, no hyperlipidemia. Neuro/Muscoloskeletal/Psych: CVA (loss of peripheral vision in L eye) residual symptoms. (-) neuromuscular disease, headaches. Pulmonary: (+) shortness of breath. COPD. (-) asthma. GI/Hepatic/Renal: GERD is. (-) hepatitis, liver disease, renal disease. Endo/Other: Diabetes, type 2, using insulin. (-) hypothyroidism, hyperthyroidism, no bleeding disorder, no DVT, no clotting disorder. Comments: Last eliquis 01/20 Past Medical History Past Medical History: Diagnosis Date ??? Abnormal gait walker on occas ??? Arthritis ??? Back pain sciatica ??? Cataract ??? Clotting disorder (CMS-HCC) ??? Constipation ??? COPD (chronic obstructive pulmonary disease) (CMS-HCC) ??? CVA (cerebral vascular accident) (CMS-HCC) 2019 ??? Diabetes (CMS-HCC) ??? DVT (deep venous thrombosis) (CMS-HCC) ??? GERD (gastroesophageal reflux disease) ??? Hypertension ??? Kidney stone ??? Liver disease fatty liver ??? Lung nodule 04/2019 ??? Pulmonary embolism (CMS-HCC) 1988 postop ??? Sleep apnea no bipap Past Surgical History Past Surgical History: Procedure Laterality Date ??? bariatric surgery 1988 stomach stapling ??? BRONCHOSCOPY EUS N/A 03/23/2019 Procedure: BRONCHOSCOPY EBUS; Surgeon: Harlye Perez MD; Location: ENDOSCOPY; Service: Pulmonary; Laterality: N/A; ??? CHOLECYSTECTOMY ??? CYSTOSCOPY TRANSURETHRAL RESECTION BLADDER N/A 07/15/2024 Procedure: CYSTOSCOPY TRANSURETHRAL RESECTION BLADDER TUMOR; Surgeon: Trevon Grant MD; Location[facility] OR; Service: Urology; Laterality: N/A; ??? THORACOSCOPY Right 04/11/2019 Procedure: Right thoracoscopy lower lobectomy, possible thoracotomy; Surgeon: Ruma Yang MD; Location: OR; Service: General; Laterality: Right; ??? TONSILLECTOMY ??? TUBAL LIGATION Family History Family History Problem Relation Age of Onset ??? Atrial fibrillation Mother ??? Stroke Mother ??? Cancer Mother breast cancer ??? Cancer Father colon cancer Social History Social History Socioeconomic History ??? Marital status: Spouse name: Not on file ??? Number of children: Not on file ??? Years of education: Not on file ??? Highest education level: Not on file Occupational History ??? Not on file Tobacco Use ??? Smoking status: Former Current packs/day: 1.00 Average packs/day: 1 pack/day for 47.0 years (47.0 ttl pk-yrs) Types: Cigarettes ??? Smokeless tobacco: Never ??? Tobacco comments: currently 1ppd, on [employer] 2019 Vaping Use ??? Vaping status: Never Used Substance and Sexual Activity ??? Alcohol use: No ??? Drug use: No ??? Sexual activity: Yes Partners: Male control/protection: Post-menopausal Other Topics Concern ??? Caffeine Use Not Asked ??? Occupational Exposure Not Asked ??? Exercise Not Asked ??? Seat Belt Not Asked Social Drivers of Health Financial Resource Strain: Not on file Food Insecurity: Not on file Transportation Needs: Not on file Physical Activity: Not on file Stress: Not on file Social Connections: Unknown (07/13/2023) Received from [facility] Family and Community Support ??? Help with Day-to-Day Activities: Not on file ??? Lonely or Isolated: Not on file Intimate Partner Violence: Not At Risk (01/24/2025) Humiliation, Afraid, Rape, and Kick questionnaire ??? Fear of Current or Ex-Partner: No ??? Emotionally Abused: No ??? Physically Abused: No ??? Sexually Abused: No Medications Allergies: Allergies[1] Home Meds: Home Medications Medication Sig Taking? Last Dose albuterol (PROVENTIL;VENTOLIN;PROAIR) 90 mcg/actuation inhaler Yes Past Week apixaban (ELIQUIS) 5 mg Tab Take 1 tablet (5 mg total) by mouth 2 times a day. Yes 01/20/2025 atorvastatin (LIPITOR) 80 MG tablet Take 1 tablet (80 mg total) by mouth at bedtime. Yes 01/01/2025 Bedtime bisoprolol (ZEBETA) 5 MG tablet Take 1 tablet (5 mg total) by mouth daily. AM Yes 01/24/2025 Morning FIASP U-100 INSULIN 100 unit/mL Soln INJECT 80 UNITS SUBCUTANEOUSLY EVERY DAY PER OMNIPOD DIRECTED (PER OMNIPOD MAX OF 80 UNITS PER DAY) Yes naproxen sodium (ANAPROX) 220 MG tablet Take 1 tablet (220 mg total) by mouth 2 times a day with meals. Yes Past Week omeprazole (PRILOSEC) 40 MG capsule TAKE ONE CAPSULE BY MOUTH EVERY DAY BEFORE a meal Yes 01/24/2025Morning spironolactone (ALDACTONE) 50 MG tablet Take 1 tablet (50 mg total) by mouth daily. Yes torsemide (DEMADEX) 20 MG tablet Take 1 tablet (20 mg total) by mouth daily. Yes Evening aspirin 81 MG EC tablet Take 1 tablet (81 mg total) by mouth daily. More than a month oxybutynin (DITROPAN) 5 MG tablet Take 1 [...] 2 liters per Nasal cannula as needed Inpatient Meds: Scheduled: Continuous: ??? lactated Ringers PRN: ceFAZolin (ANCEF) IVPB Vital Signs Wt Readings from Last 3 Encounters: 01/24/25 (!) 224 lb (101.6 kg) 07/15/24 (!) 227 lb (103 kg) 05/19/19 213 lb (96.6 kg) Ht Readings from Last 3 Encounters: 01/24/25 5' 3 (1.6 m) 07/15/24 5' 3 (1.6 m) 05/19/19 5' (1.524 m) Temp Readings from Last 3 Encounters: 01/24/25 97.1 ??F (36.2 ??C) (Temporal) 07/17/24 98.3 ??F (36.8 ??C) (Oral) 06/12/24 97.3 ??F (36.3 ??C) (Oral) BP Readings from Last 3 Encounters: 01/24/25 142/57 07/17/24 110/62 06/12/24 144/70 Pulse Readings from Last 3 Encounters: 01/24/25 64 07/17/24 64 06/12/24 69 SpO2 Readings from Last 3 Encounters: 01/24/25 94% 07/17/24 90% 06/12/24 95% Physical Exam Airway: Mallampati: II Mouth Opening: >2 FB TM distance: > = 3 FB Neck ROM: full Dental: - No obvious cracked, loose, chipped, or missing teeth. (+) upper dentures Pulmonary: - normal exam Breath sounds clear to auscultation. (+) wheezes. Cardiovascular: - normal exam Rhythm: regular Rate: normal Neuro/Musculoskeletal/Psych: - normal neurological exam. Mental status: alert and oriented to person, place and time. Abdominal: - normal exam Abdomen: soft. Current OB Status: Other Findings: Laboratory Data Lab Results Component Value Date WBC 7.9 07/17/2024 HGB 11.9 07/17/2024 HCT 34.7 (L) 07/17/2024 MCV 93.4 07/17/2024 PLT 169 07/17/2024 No results found for: ABORH Lab Results Component Value Date GLUCOSE 170 (H) 07/17/2024 BUN 17 07/17/2024 CO2 33 07/17/2024 CREATININE 0.96 07/17/2024 K 3.4 (L) 07/17/2024 NA 139 07/17/2024 CL 99 07/17/2024 CALCIUM 8.1 (L) 07/17/2024 ALBUMIN 3.5 07/17/2024 PROT 6.9 06/12/2024 ALKPHOS 117 06/12/2024 ALT 10 06/12/2024 AST 23 06/12/2024 BILITOT 0.4 06/12/2024 No results found for: PTT , INR No results found for: PREGTESTUR , PREGSERUM , HCG , HCGQUANT Anesthesia Plan ASA 3 Female and current non-smoker Anesthesia Type: general LMA. PONV Risk Factors: female, current non-smoker Induction: Intravenous induction. Anesthetic plan and risks discussed with patient. Plan, alternatives, and risks of anesthesia, including , have been explained to and discussed with the patient/legal guardian. By my assessment, the patient/legal guardian understands and agrees. Scenario presented in detail. Questions answered. Use of blood products discussed with patient who consented to blood products. Plan discussed with attending and RAG GRADER. [1] Allergies Allergen Reactions ??? Diclofenac Nausea And Vomiting and Other (See Comments) ??? Latex Rash I get a rash if I wear latex bras for too long. documented in this encounter Plan of Treatment Not on file documented as of this encounter Visit Diagnoses * Transfer of Care - Roseanna Shell CRNA - 01/24/2025 11:33 AM EDT Anesthesia Transfer of Care Note Patient: Erin Jung Procedure(s) Performed: Procedure(s): CYSTOSCOPY TRANSURETHRAL RESECTION BLADDER Patient location: PACU Anesthesia type: general Airway Device on Arrival to PACU/ICU: Non-rebreather Mask IV Access: Peripheral Monitors Recommended to be Used During PACU/ICU: Standard Monitors Outstanding Issues to Address: None Level of Consciousness: awake, alert , and oriented Post vital signs: Vitals: 01/24/25 BP: 108/78 Pulse: 68 Resp: 14 Temp: 97.1 ??F SpO2: 100% Complications: No notable events documented. Date 01/23/25 07 - 01/24/25 0659(Not Admitted) 01/24/25 07 - 01/25/25 0659 Shift 4214-9628 5082-0105 4387-2666 24 Hour Total 2368-2506 7504-5530 4041-5534 24 Hour Total INTAKE IV Piggyback 100 100 Volume (mL) (ceFAZolin (ANCEF) 2 g in sodium chloride 0.9% 100 mL ADDaptor IVPB) 100 100 Shift Total(mL/kg) 100(1) 100(1) OUTPUT Shift Total(mL/kg) Weight (kg) 103.4 103.4 103.4 103.4 101.6 101.6 101.6 101.6 documented in this encounter Administered Medications Inactive Administered Medications - up to 3 most recent administrations Medication Order MAR Action Action Date Dose Rate Site albuterol ([id number]) 90 mcg/actuation inhaler Inhalation, PRN - One Step Medication Only, Starting on Thu01/24/25 at 1051, Anesthesia Intra-op Given 01/24/2025 11:20 AM EDT 6 puffs Given 01/24/2025 10:51 AM EDT 8 puffs ceFAZolin (ANCEF) 2 g in sodium chloride 0.9% 100 mL ADDaptor IVPB Intravenous, at 200 mL/hr, call center manager to O.R., call center manager to O.R., Starting on Thu01/24/25 at 0906, For 1 dose, Begin infusion 20-60 minutes prior to incision. For Patient Weight Greater 81-119 kg Use ADDaptor product - Mix Thoroughly Before Administration, Pre-op, Indication? Prophylaxis-Surgical, Site of diagnosed infections (select all that apply): Skin/Soft TissueIndications:Malignant neoplasm of urinary bladder, unspecified site ([facility]) New Bag 01/24/2025 10:38 AM EDT 2 g dexamethasone (DECADRON) injection Intravenous, PRN - One Step Medication Only, Starting on Thu01/24/25 at 1101, Anesthesia Intra-op Given 01/24/2025 11:01 AM EDT 4 mg lactated Ringers IV infusion 20 mL/hr, Intravenous, Continuous, Starting on Thu01/24/25 at 0930, Pre-opIndications:Malignant neoplasm of urinary bladder, unspecified site ([facility]) New Bag 01/24/2025 10:38 AM EDT lidocaine (PF) 20 mg/mL (2 %) Soln Intravenous, PRN - One Step Medication Only, Starting on Thu01/24/25 at 1046, Anesthesia Intra-op Given 01/24/2025 10:46 AM EDT 100 mg ondansetron (ZOFRAN) injection Intravenous, PRN - One Step Medication Only, Starting on Thu01/24/25 at 1101, Anesthesia Intra-op Given 01/24/2025 11:01 AM EDT 4 mg propofol 10 mg/ml (DIPRIVAN) injection Intravenous, PRN - One Step Medication Only, Starting on Thu01/24/25 at 1046, Anesthesia Intra-op Given 01/24/2025 10:46 AM EDT 120 mg rocuronium (ZEMURON) injection Intravenous, PRN - One Step Medication Only, Starting on Thu01/24/25 at 1047, Anesthesia Intra-op Given 01/24/2025 10:47 AM EDT 50 mg sugammadex (BRIDION) IV solution Intravenous, PRN - One Step Medication Only, Starting on Thu01/24/25 at 1111, Anesthesia Intra-op Given 01/24/2025 11:11 AM EDT 200 mg documented in this encounter Care Teams Truck Striker Relationship Specialty Start Date End Date Orlando Zhang MD [address] [place] [address] PCP - General Family Medicine 03/01/19 documented as of this encounter
--- OUTSIDE RECORDS SUMMARY | 2025-01-24 10:50 | XMS_ITS | Encounter Summary ---
Author Organization [facility] Address [address] [place] [address] Care Team Providers Care Panel Raiser Operator Name Role Phone Orlando Zhang MD Primary Care Provider [phone] Source Comments This information has been disclosed [...] release of HIV test results or diagnoses. [id number] Health Reason for Visit * Auth/Cert (Routine) Specialty Diagnoses / Procedures Referred By Mattie t Referred To Contact Diagnoses Malignant neoplasm of urinary bladder, unspecified site ([facility]) [C67.9] Procedures CYSTOSCOPY TRANSURETHRAL RESECTION BLADDER [facility] [address] [place] [address] Phone: tel: Referral ID Status Reason Start Date Expiration Date Visits Re quested Visits Authorized [id number] 1 1 Encounter Details Date Type Department Care Team (Late st Contact Info) Description 01/24/2025 10:50 AM EDT - 01/24/2025 12:10 PM EDT Surgery [facility] [address] [place] [phone] Trevon Grant MD [address] [place] [phone] CYSTOSCOPY TRANSURETHRAL RESECTION BLADDER Surgery Details Date/Time Status Location OR Service Patient Class Case Class Case Type Trauma Case? 01/24/2025 10:50 AM Posted OR [facility] OP Surg/Ambula tory Non Trauma Panel 1 Procedure LRB Anes Op Region Wound Class Comments CYSTOSCOPY TRANSURETHRAL RESECTION BLADDER N/A General LMA Bladder Clean Contaminated Surgeon Surgeon Role Service Panel Trevon Grant MD Primary Urology 1 Special Needs 23 HR OBSERVATION- #LW documented in this encounter Social History Tobacco Use Types Packs/Day Years Used Date Smoking Tobacco: Former Cigarettes 1 47 Smokeless Tobacco: Never Tobacco Cessation:Counseling Given: Not Answered Comments:currently 1ppd, on 2018 Alcohol Use Standard Drinks/Week Comments No 0 (1 standard drink = 0.6 oz pur e alcohol) Utilities Answer Date Recorded In the past 12 months has th e electric, gas, oil, or water company threatened to [...] any time in the past [address] [facility], were you homeless or living in a care home (including now)? No 01/24/2025 Comments No Sex and Gender Information Value Date Recorded Sex Assigned at Not on file Legal Sex Female 7:42 PM EST Gender Identity Not on file Sexual Orientation Not on file documented as of this encounter Last Filed Vital Signs Vital Sign Reading Time Taken Comments Blood Pressure 127/71 01/24/2025 12:00 PM EDT Pulse 69 01/24/2025 12:05 PM EDT Temperature 36.4 C (97.5 F) 01/24/2025 12:00 PM EDT Respiratory Rate 24 01/24/2025 12:05 PM EDT Oxygen Saturation 99% 01/24/2025 12:05 PM EDT Inhaled Oxygen Concentration 99% 01/24/2025 1 2:05 PM EDT Weight 101.6 kg (224 lb) 01/24/2025 9:30 AM EDT Height 160 cm (5' 3 ) 01/24/2025 9:30 AM EDT Body Mass Index 39.68 01/24/2025 9:30 AM EDT documented in this encounter Discharge Summaries * Tammi Leyva - 01/25/2025 2:38 PM EDT [facility] Project Finance Analyst/Equipment Cleaner Discharge Summary Patient name: Trinidad Jung Patient : 1955 Age: 69 y.o. Gender: female Patient emergency contact: Extended Emergency Contact Information Primary Emergency Contact: Pavel Jung [facility] Mobile Relation: Spouse Attending provider: Trevon Grant MD Primary care physician: ORLANDO ZHANG MD The MD has indicated that the patient is ready for discharge. Trinidad Jung is active with [facility]([place], [place] [phone]) for PRN oxygen needs. [facility] office in [place], [place] ([phone])delivered a tank to the patient at bedside. Per Abiola childress, the tank would last patient 4 hours. Patient is PRN oxygen needs and her transport home is under 2 hours. [facility] ([phone]) provided patient transport to the hospital yesterday [...] Yes No further CM/SW needs. Tammi Leyva, CYBER SECURITY ENGINEER, MANAGER OF BUSINESS OPERATIONS Inpatient Equipment Cleaner/Information Technology Security Manager [phone] This plan has been reviewed with the multi-disciplinary team. Treatment Preferences Treatment Preferences: Provider Preference Post-Discharge Goals Patient's Post-Discharge goals: To return home safely Post Acute Care Provider Information: Community Services at Discharge Community Services at Home post discharge: Respiratory Respiratory Company Name/Phone #: [employer] ([place], [place] [phone]) Oxygen Needs: Oxygen Oxygen Liter/Minute: 2 * Maile Trujillo, [facility] - 01/25/2025 1:20 PM EDT UROLOGY DISCHARGE SUMMARY Patient ID: Trinidad Jung [id number] Admit date: 01/24/2025 Discharge date: 01/25/2025 Attending Physician: Trevon Grant MD Admission Diagnoses: Malignant neoplasm of urinary bladder, unspecified site ([facility]) [C67.9] Discharge Diagnoses: Active Problems: Malignant neoplasm of urinary bladder, unspecified site ([facility]) [C67.9] Past Medical History: Diagnosis Date Abnormal gait walker on occas Arthritis Back pain sciatica Cataract Clotting disorder ([facility]) Constipation COPD (chronic obstructive pulmonary disease) ([facility] CVA (cerebral vascular accident) ([facility] 2019 Diabetes ([facility]) DVT (deep venous thrombosis) ([facility]) GERD (gastroesophageal reflux disease) Hypertension Kidney stone Liver disease fatty liver Lung nodule 04/2019 Pulmonary embolism ([facility]) 1988 postop Sleep apnea no bipap Indication [...] the ER or call the Urology Resident x ray electronics wireman at [phone] if you experience any of the following: - Worsening pain, nausea, or vomiting not relieved by medications - Temperature greater than 101.5 F or fever/chills - Chest pain, shortness of breath, persistent dizziness, swelling in one or both legs - Bright red blood in urine or inability to urinate Urology follow up: A scheduler maintenance will reach out to you to set up a follow up appointment in our clinic after the procedure. If you do not hear from us, please contact our clinic using the information below: Contact Information: Your [facility] Urology Physicians can be reached the following ways: - During business hours (8 AM - 5 PM), please call the Urology Clinic at . - During after hours and holidays, please call the [facility] HospitalOperator at and ask to speak to the urology resident x ray electronics wireman. Follow-Up: Future Appointments Date Time Provider Department Center 03/14/2025 1:30 PM HARESH Quinn [facility] MAILE TRUJILLO CNP 01/25/2025 Cosigned by Trevon Grant MD at 01/25/2025 1:38 PM EDT Associated attestation - rTevon Grant MD - 01/25/2025 1:38 PM EDT [...] the ER or call the Urology Resident x ray electronics wireman at [phone] if you experience any of the following: - Worsening pain, nausea, or vomiting not relieved by medications - Temperature greater than 101.5 F or fever/chills - Chest pain, shortness of breath, persistent dizziness, swelling in one or both legs - Bright red blood in urine or inability to urinate Urology follow up: A scheduler maintenance will reach out to you to set up a follow up appointment in our clinic after the procedure. If you do not hear from us, please contact our clinic using the information below: Contact Information: Your [facility] Urology Physicians can be reached the following ways: - During business hours (8 AM - 5 PM), please call the Urology Clinic at . - During after hours and holidays, please call the [facility] HospitalOperator at and ask to speak to the urology resident x ray electronics wireman CPAP vs BiPAP: You will need to [...] 0659 01/25/25 07 - 01/26/25 0659 Shift [id number] 24 Hour Total [id number] [phone] [id number] 24 Hour Total INTAKE P.O. 720 720 [...] Daily 0900 atorvastatin 80 mg Oral Nightly (2099) bisoprolol 5 mg Oral Daily 0900 heparin 5,000 Units Subcutaneous 3 times per day insulin lispro 0-7 Units Subcutaneous Nightly (2099) insulin lispro 0-8 Units Subcutaneous TID AC [...] bladder tumor pathology Neuro: Pain control with [facility]. CV: Hemodynamically stable. Pulm: Wean oxygen and encourage incentive spirometer. FEN: Diet: consistent carb diet. Replace electrolytes prn. GI: Bowel regimen, zofran prn nausea. Heme: Monitor H/H ID: Afebrile, no s/sx infection. Proph: SQH, SCDs, incentive spirometer, ambulate. Disposition: discharge today pending transport home Discussed with staff MD THOMPSON Duncan MD Urology Pager: [phone] Cosigned by Trevon Grant MD at 01/25/2025 [...] Verified (per MD) Surgery Location Verified Yes ([facility]) Remind patient to bring picture ID and insurance card Yes Medical History Reviewed Yes NPO Status Reinforced Yes (NPO after midnight) Ride and Caregiver Arranged Yes Ride Caregiver Provider Spouse Pavel Phone Number for Ride/Caregiver [phone] Instructions to bring current medication list Yes [...] before surgery. BRING EXTRA SUPPLIES WITH YOU [facility] (insertion set, tubing, reservoir, batteries). [facility] does not have insulin pumpsupplies available. [...] this office with further questions or concerns. [facility]: [address] [place] [phone]. [phone] Arrival Instructions We're pleased that you have chosen [facility] for your upcoming procedure. The staff serving you hasbeen professionally trained to provide the highest quality care. We encourage you to ask questions and to let the staff know of any special needs,as we want your visit to be as comfortable as possible. Your procedure is scheduled on 01/24/2025 at [facility] . Please arrive at [facility] to [facility]: the registration area in the main lobby. Please be aware that your surgeon's office will reach out to you regarding any changes to your dateand time of surgery. Feel free to contact your surgeon's office 1-2 days prior to surgery to confirm. Parking: [facility]: the [employer] located at [address] [place] [address] (formerly [employer]). *Parking tickets can be validated at the Parking Kiosk near the Main Lobby. *Head Bucker available 6:00am-6:00pm for a fee Fasting Instructions [...] before surgery. BRING EXTRA SUPPLIES WITH [facility] (insertion set, tubing, reservoir, batteries). [facility] does not have insulin pumpsupplies available. [...] (albuterol), please bring your medication with you. Pcmf-ttz-Mjmzqes Medication (OTC) Instructions: -Some jxoy-dve-rokftda Medications may thin your blood: Stop taking zcbz-xhr-zgcfrce blood thinnersseven (7) to ten (10) days [...] jewelry, body piercings, powders, perfumes/colognes, dark nail chinese. Please do SHOWER the evening before surgery [...] Checklist: The morning of your surgery: ? Goree your teeth. ? Shower: the morning of surgery with an antibacterial soap, such as Dial. If given Chlorhexidine (CHG) wash or mupirocin/Bactroban nasal ointment, please use as instructed. ? Remove: all makeup, nail chinese, jewelry, wristwatch, and body piercings. ? Do not use: powder, lotions, deodorant, perfume, and or cologne. ? What to wear: Wear casual, loose fitting, and comfortable clothing. Bring with you: ? List of your medications, dosage and how often you take the medication. ? List of qtwm-ryu-zfazial medications and supplements, dose and how often [...] need (ex. change of clothing, toiletries, phone rug inspector). Locker space is limited in the surgery [...] your surgeon immediately. For questions please call [phone]. There is a nurse available Thursday through Thursday, 8 a.m. to5:30 p.m. The office is closed on weekends and holidays. After hours you may leave a voicemail, and someone will return your call on the next business day. In an EMERGENCY, if you must reach someone after our office is closed, you may call the same day surgery at [phone] from 5:30 to 8 p.m. After that time, urgent calls only may go to the operatingroom desk at [phone]. documented in this encounter H&P Notes * [...] Arthritis Back pain sciatica Cataract Clotting disorder ([facility]) Constipation COPD (chronic obstructive pulmonary disease) ([facility]) CVA (cerebral vascular accident) ([facility]) 2019 Diabetes ([facility] DVT (deep venous thrombosis) ([facility]) GERD (gastroesophageal reflux disease) Hypertension Kidney stone Liver disease fatty liver Lung nodule 04/2019 Pulmonary embolism ([facility]) 1988 postop Sleep apnea no bipap PSH: Past Surgical History: Procedure Laterality Date bariatric surgery 1988 stomach stapling BRONCHOSCOPY EUS N/A 03/23/2019 Procedure: BRONCHOSCOPY EBUS; Surgeon: Harley Perez MD; Location: ENDOSCOPY; Service: Pulmonary; Laterality: N/A; CHOLECYSTECTOMY CYSTOSCOPY TRANSURETHRAL RESECTION BLADDER N/A 07/15/2024 Procedure: CYSTOSCOPY TRANSURETHRAL RESECTION BLADDER TUMOR; Surgeon: Trevon Grant MD; Location: [facility] OR; Service: Urology; Laterality: N/A; THORACOSCOPY Right [...] tobacco: Never Tobacco comments: currently 1ppd, on Chanti2018 Vaping Use Vaping status: Never Used Substance [...] file Social Connections: Unknown (07/13/2023) Received from [facility] Family and Community Support Help with Day-to-Day Activities: Not on file Lonely or Isolated: Not on file Intimate Partner Violence: Not At Risk (07/15/2024) Humiliation, Afraid, Rape, and Kick questionnaire Fear of Current or Ex-Partner: No Emotionally Abused: No Physically Abused: No Sexually Abused: No Housing Stability: Unknown (07/13/2023) Received from [facility] Housing Stability Current Living Arrangements: Not on [...] Patient consented and site marked - Antibiotics x ray electronics wireman to OR - Discussed the indications, risks, benefits, alternatives, and potential complications (bleeding, infection, injury to surrounding structures) of the procedure after detailing the pathophysiology ofthe patient's condition THOMPSON HAYES MD, MD Urology Resident #[id number] 01/24/2025 [1] Allergies Allergen Reactions Diclofenac Nausea [...] to bedside. Transport to take patient to [facility] for scheduled ride at 1530. * [...] Tammi Leyva - 01/25/2025 11:04 AM EDT [facility] Case Management/Social Work Department Progress Note Patient Information Patient Name: Trinidad Jung Hospital day: 0 Inpatient/Observation: Observation Level of Care: Admit date: 01/24/2025 Admission diagnosis: Malignant neoplasm of urinary bladder, unspecified site ([facility]) [C67.9] PMH: has a past medical history of Abnormal gait, Arthritis, Back pain, Cataract, Clotting disorder([facility]), Constipation, COPD (chronic obstructive pulmonary disease) ([facility]), CVA (cerebral vascular accident) ([facility]) (2019), Diabetes ([facility]), DVT (deep venous thrombosis) ([facility]), GERD (ga stroesophageal reflux disease), Hypertension, Kidney stone, Liver disease, Lung nodule (04/2019), Pulmonary embolism ([facility]) (1988), and Sleep apnea. PCP: ORLANDO ZHANG MD Home Pharmacy: [facility] [address] [facility] [address] [facility] - [place], [place] - [address] [facility] [address] [facility] [address] [place] [address] [address] [facility] [address] [id number] [address] [facility] [address] [facility] [address] [facility] [address] [facility] [id number] Medical Insurance Coverage: Payor: HUMANA MANAGED MEDICARE / Plan: HUMANA GOLD PLUS MEDICARE / Product Type: Medicare [facility] Care / Other Pertinent Information Equipment Cleaner met with Urology team for daily rounds and completed chart review. Patient is anticipated to be medically ready on this date. Pending oxygen delivery at this time through patient's homeoxygen, [employer] ([place], [place] [phone]). [facility] in [place], [place] ([phone]) to call SW once they are on the way to deliver the tank to patient at bedside. Pewter Fabricator,Abiola Guillen, markeddelivery as urgent as they are aware it is for a hospital discharge. Patient was transported to hospital yesterday by [facility] ([phone]). Patient will be transported home by [facility] around 3:30pm. SW confirmed this with scheduler maintenance,Arielle. Abiola Gulilen with [employer] informed SW that oxygen will be delivered to patient at bedside prior to 3:30pm transport. boot and saddle repair person through [employer] to call SW once he is on his way/ at the hospital delivering oxygen to patient. UPDATE 2:43pm: SW met with patient at bedside to ensure she is aware of transport arriving at 3:30pm through [facility]. [facility] tank was at bedside [...] while now. SW spoke with [employer] rep, Michael [phone], regarding how to obtain new CPAP if [...] for discharge planning needs. Tammi Leyva, APOORVA, [facility] Inpatient Equipment Cleaner/Information Technology Security Manager [phone] * Plan of Care - Toribio Jones [...] MD PCP: ORLANDO ZHANG MD Home Pharmacy: [facility] [address] [facility] [address] [facility] - [place], [place] - [address] [place] [address] [facility] [address] [place] [address] [address] [facility] [address] [id number] - [place], [place] - [address] [facility] [address] [facility] [address] Issues related to obtaining medications: N/A Payor Information Medical Insurance Coverage: Payor: HUMANA MANAGED MEDICARE / Plan: HUMANA GOLD PLUS MEDICARE / Product Type: Medicare [facility] Care / Secondary Payor: N/A Functional Assessment [...] Respiratory Respiratory Company Name/Phone #: [facility] Oxygen Needs: Oxygen Was any abuse reported by patient?: No [place] Status & Connection to [facility] Services [place] Status & Connection to [facility] Services Are you a ?: No Support Systems Emergency contact: Extended Emergency Contact Information Primary Emergency Contact: Pavel Jung [facility] Mobile Relation: Spouse Support Systems Primary Caregiver: [...] tumor after recurrence found on office cystoscopy. Information Technology Security Manager/Equipment Cleaner Kathryn Leyva met with patient at bedside to complete psychosocial assessment for discharge planning as part of routine care. SW introduced herself and role of SW in hospital. SW verified demographic information. Patient lives in a home in [place], [place] with her spouse. Patient reported she [...] of kin is her spouse, Pavel Jung [phone]. Advance Directives (For Healthcare) Advance Directive: Patient does not have advance directive Discharge Plan Met with patient to initiate discussion regarding discharge planning. Introduced self and role of case management/social work and provided contact information. Equipment Cleaner met with Urology team for daily rounds and completed chart review. Patient is not anticipated to be medically ready for at least 1 more day. Team weaning patient from oxygen. Patient rodolfo PRN oxygen through [facility] ). Swathi Hewitt will be dropping off an oxygen tank to patient at bedside tomorrow. SW to call them tomorrow ([phone]) if patient's bed locationchanges. SW provided [facility] with this comic writer's direct line so they can call when they are on the way to drop off the tank. Tank will be good for 4 hours continuously. Patient's transport home will only be an hour an 30 minutes. Patient stated she has transport through her insurance; However, she used [facility] [phone] and is ok to use them for [...] interest(s) are disclosed as appropriate. APOORVA Viveros, [facility] Inpatient Equipment Cleaner/Information Technology Security Manager [phone] documented in this encounter Plan of Treatment [...] - 100 mg/dL 01/25/2025 12:03 PM EDT [facility] Blood 01/25/2025 12:0 2 PM EDT 01/25/2025 12:03 PM EDT us Trevon Grant MD POINT OF CARE TEST ORDERABLES Final Result [facility] [address] [place] [address], [facility] * (ABNORMAL) POC Glucose Monitoring Device (01/25/2025 8:16 AM EDT) POC Glucose Monitoring Device 200(H) 70 - 100 mg/dL 01/25/2025 8:16 AM EDT [facility] Blood 01/25/2025 8:16 AM EDT 01/25/2025 8:16 AM EDT Trevon Grant MD POINT OF CARE TEST ORDERABLES Final Result Performing Organization Address City/[facility] Co de Phone Number [facility] [address] * (ABNORMAL) Hemoglobin A1c (01/25/2025 3:38 AM EDT) Hemoglobin A1C 6.8(H) 4.0 - 5.6 % 01/25/2025 4:47 AM EDT [facility] Comment: Hemoglobin A1c Interpretation Guidelines: Normal: [...] MD LAB BLOOD ORDERABLES Final Resul t Performing Organization Address [facility] Co de Phone Number [facility] [address] * (ABNORMAL) POC Glucose Monitoring Device (01/25/2025 3:09 AM EDT) POC Glucose Monitoring Device 196(H) 70 - 100 mg/dL 01/25/2025 3:20 AM EDT [facility] Blood 01/25/2025 3:09 AM EDT 01/25/2025 3:20 AM EDT Trevon Grant MD POINT OF CARE TEST ORDERABLES Final Result Performing Organization Address City/[facility] Co de Phone Number [facility] [address] * (ABNORMAL) POC Glucose Monitoring Device (01/24/2025 10:08 PM EDT) POC Glucose Monitoring Device 250(H) 70 - 100 mg/dL 01/24/2025 10:09 PM EDT [facility] Blood 01/24/2025 10:0 8 PM EDT 01/24/2025 10:09 PM EDT us Trevon Grant MD POINT OF CARE TEST ORDERABLES Final Result [facility] [address] [facility]. [address] * (ABNORMAL) POC Glucose Monitoring Device (01/24/2025 7:45 PM EDT) POC Glucose Monitoring Device 317(H) 70 - 100 mg/dL 01/24/2025 7:46 PM EDT [facility] Blood 01/24/2025 7:45 PM EDT 01/24/2025 7:46 PM EDT us Trevon Grant MD POINT OF CARE TEST ORDERABLES Final Result [facility] [address] [facility]. [address] * (ABNORMAL) POC Glucose Monitoring Device (01/24/2025 11:41 AM EDT) POC Glucose Monitoring Device 172(H) 70 - 100 mg/dL 01/24/2025 11:42 AM EDT [facility] [facility] Blood 01/24/2025 11:4 1 AM EDT 01/24/2025 11:42 AM EDT us Trevon Grant MD POINT OF CARE TEST ORDERABLES Final Result [facility] [address] [facility]. [address] * (ABNORMAL) POC Glucose Monitoring Device (01/24/2025 9:21 AM EDT) POC Glucose Monitoring Device 187(H) 70 - 100 mg/dL 01/24/2025 9:23 AM EDT [facility] Blood 01/24/2025 9:21 AM EDT 01/24/2025 9:23 AM EDT us Trevon Grant MD POINT OF CARE TEST ORDERABLES Final Result [facility] [address] [place] [address], [facility] * Surgical Pathology Exam (01/24/2025 12:00 AM EDT) 01/24/2025 01/24/2025 Narrative [facility] - 01/24/2025 12:00 AM EDT CASE: [id number] PATIENT: TRINIDAD JUNG Clinical History: cystoscopy transurethral resection bladder Pre-Operative Diagnosis: malignant neoplasm of urinary bladder, unspecified site Post-Operative Diagnosis: same Specimen(s) Submitted: A. bladder tumor CPT Code(s): 30965 X 1 Additional Information: FINAL DIAGNOSIS: Bladder, TURBT: Non-invasive papillary low-grade urothelial carcinoma. Benign muscularis propria is present. Comment: Multiple step levels were examined (tissue block exhausted). Gross Description: Received in formalin, labeled with the patient's name Trinidad Jung and bladder tumor , are two rubbery kaufman-white tissue fragments measuring 0.8 and 0.9 cm in greatest dimension, which are entirely submitted in cassette [id number]. (HARESH Ruiz/jerod) Microscopic Description: Microscopic examination was performed and is reflected in the above diagnosis. I, the attending pathologist, have personally reviewed all prosector/resident work and pathology slides to determine final diagnosis. Final Diagnosis performed by Ava Montenegro M.D. Pathologist Electronically signed 01/26/2025 10:52:45 AM The Pathologist signing this report is located at [facility], [address] [place] [address], [place], [address], , CLIA ID: [id number] Trevon Grant MD PATHOLOGY/CYTOLOGY ORDERABLES Final Result [facility] documented in this encounter Visit Diagnoses Diagnosis Malignant neoplasm of urinary bladder, unspecified site (CMS-HCC) Malignant neoplasm of urinary bladder, unspecified site (CMS-HCC) documented in this encounter Administered Medications Inactive [...] 80 mg 80 mg, Oral, At Bedtime (2100), First dose on Thu01/24/25 at 2100 Given [...] Pre-opIndications:Malignant neoplasm of urinary bladder, unspecified site ([facility]-H[facility]) New Bag 01/24/2025 10:38 AM EDT ondansetron [...] Given 01/24/2025 6:59 PM EDT 1 tablet sodium chloride 0.9 % irrigation As needed, Starting on Thu01/24/25 at 1124, Intra-op Given 01/24/2025 11:24 AM EDT 1,500 mLs spironolactone (ALDACTONE) tablet 50 mg 50 mg, [...] 1859 (Given - Provider: Ok Lorenzana RN) 0919 (Given - Provider: Brandon Olmedo RN) atorvastatin (LIPITOR) tablet 80 mg 80 mg, Oral, At Bedtime (2099), First dose on Thu01/24/25 at 2099 2055 (Given - Provider: Toribio Jones RN) bisoprolol (ZEBETA) tablet 5 mg 5 mg, Oral, Daily, First dose on Thu01/25/25 at 0900 0919 (Given - Provid er: Brandon Olmedo RN) heparin (porcine) injection 5,000 Units 5,000 Units, Subcutaneous, Every 8 hours scheduled (3 times per day), First dose on Thu01/24/25 at 2099 2055 (Given - Provider: Toribio Jones RN) 0448 (Given - Provider: Toribio Jones RN)1207 (Given - Provider: Brandon Olmedo, RN) [...] Virk RN - Reason: Order parameters not met)1845 (Not Given - Provider: Ok Lorenzana RN [...] on Thu01/24/25 at 1800, HIGH ALERT MEDICATION 194 (Given - Provider: Ok Lorenzana RN) 0927 (Given - Provider: Brandon Olmedo, RN)1208 [...] at 1600 1859 (Given - Provider: Ok Lorenzana RN) spironolactone (ALDACTONE) tablet 50 mg 50 [...] Patient/family refused) 0926 (Given - Provider: Brandon Olmedo, ÁNGELA) Continuous Medication Order 01/23/2025 01/24/2025 01/25/2025 [...] (Given - Provider: Tiffani Virk RN) albuterol (PHZSAIBBN-SYNHXJ-ZMQZZEPI) 90 mcg/actuation inhaler 2 puff 2 puff, Inhalation, RT every 4 hours PRN, Wheezing, Shortness of Breath, Starting on Thu01/24/25 at 1619, SHAKE WELL ceFAZolin (ANCEF) 2 g in sodium chloride 0.9% 100 mL ADDaptor IVPB (COMPLETED) Intravenous, at 200 mL/hr, call out clerk to O.R., call out clerk to O.R., Starting on Thu01/24/25 at 0906, [...] PACU documented in this encounter Care Teams Panel Raiser Operator Relationship Specialty Start Date End Date Orlando Zhang MD [address] [place] [address] PCP - General Family Medicine 03/01/19 documented as of this encounter
--- NOTE | 2025-03-16 14:51 | US_ITS ---
FINAL REPORT CLINICAL HISTORY: masses rue FINDINGS: Limited sonographic images were obtained of the soft tissues of the right upper extremity of the area of palpable abnormalities. There is a 2.8 cm somewhat lobular heterogeneous hypoechoic focus of uncertain significance which could represent a solid mass or hematoma. There is a 2nd focus which is ovoid, smoothly marginated measuring 3.4 x 1.4 cm in the subcutaneous tissues probably representing a lipoma. IMPRESSION: Two separate foci, 1 could represent solid mass or hematoma and other likely lipoma, at the area of palpable abnormalities. Reviewed, Interpreted and Dictated by Lee Lutz MD Transcribed by Anette Madison Authenticated and [facility]
--- OUTSIDE RECORDS SUMMARY | 2025-03-16 15:04 | XMS_ITS | Encounter Summary ---
Author Organization [facility] Address [address] [place] [address] Care Team Providers Care Monologist Name Role Phone Orlando Zhang MD Primary Care Provider [phone] Source Comments This information has been disclosed [...] release of HIV test results or diagnoses. [id number] Health Encounter Details Date Type Department Care Team (Late st Contact Info) Description 01/26/2025 Orders Only [facility] [address] [place], [place] [id number] Trevon Grant MD [address] [place] [address] Social History Tobacco Use Types Packs/Day Years Used Date Smoking Tobacco: Former Cigarettes 1 47 Smokeless Tobacco: Never Comments:currently 1ppd, on Chantix 2019 Alcohol Use Standard Drinks/Week Comments No 0 (1 standard drink = 0.6 oz pur e alcohol) Utilities Answer Date Recorded In the past 12 months has [employer], gas, oil, or water company threatened to [...] [facility] time in the [facility], were you homeless or living in a fdc (including now)? No 01/24/2025 Comments No Sex and Gender Information Value Date Recorded Sex Assigned at Not on file Legal Sex Female 7:42 PM EST Gender Identity Not on file Sexual Orientation Not on file documented as of this encounter Plan of Treatment Not on file documented as of this encounter Visit Diagnoses Not on filedocumented in this encounter Care Teams Monologist Relationship Specialty Start Date End Date Orlando Zhang MD [address] [place] [address] PCP - General Family Medicine 03/01/19 documented as of this encounter
--- OUTSIDE RECORDS SUMMARY | 2025-03-16 15:04 | XMS_ITS | Encounter Summary ---
Author Organization [facility] Address [facility] [place] [address] Care Team Providers Care Slasher Hand Name Role Phone Orlando Zhang MD Primary Care Provider [phone] Source Comments This information has been disclosed [...] release of HIV test results or diagnoses. [id number] Health Encounter Details Date Type Department Care Team (Late st Contact Info) Description 01/26/[address] [facility] [address] [phone] Saray Hollis, RN Social History Tobacco Use Types Packs/Day Years Used Date Smoking Tobacco: Former Cigarettes 1 47 Smokeless Tobacco: Never Comments:currently 1ppd, on Chantix 2019 Alcohol Use Standard Drinks/Week Comments No 0 (1 standard drink = 0.6 oz pur e alcohol) Utilities Answer Date Recorded In the past 12 months has [employer], gas, oil, or water company threatened to [...] any time in the past 12 m [facility], were you homeless or living in [...] on filedocumented in this encounter Care Teams Slasher Hand Relationship Specialty Start Date End Date Orlando Zhang MD [address] [place] [address] PCP - General Family Medicine 03/01/19 documented as of this encounter
--- OUTSIDE RECORDS SUMMARY | 2025-03-16 15:04 | XMS_ITS | Encounter Summary ---
Author Organization [facility] Address [address] [place] [address] Care Team Providers Care Case Assembler Name Role Phone Orlando Zhang MD Primary Care Provider [phone] Source Comments This information has been disclosed [...] release of HIV test results or diagnoses. [id number] Health Encounter Details Date Type Department Care Team (Late st Contact Info) Description 01/18/2025 Telephone [facility] at [facility] [address] [place] [phone] Jarod Jones MA Social History Tobacco Use Types Packs/Day Years Used Date Smoking Tobacco: Former Cigarettes 1 47 Smokeless Tobacco: Never Comments:currently 1ppd, on Chantix 2019 Alcohol Use Standard Drinks/Week Comments No 0 (1 standard drink = 0.6 oz pur e alcohol) Comments No Sex and Gender Information Value Date Recorded Sex Assigned at Not on file Legal Sex Female 7:42 PM EST Gender Identity Not on file Sexual Orientation Not on file documented as of this encounter Miscellaneous Notes * Telephone Encounter - Jarod Jones MA - 01/18/2025 3:46 PM EDT Left pt a VM adv her procedure time has change on 01/24 10:50 a.m arrive at 8:50 a.m documented in this encounter Plan of Treatment Not on file documented as of this encounter Visit Diagnoses Not on filedocumented in this encounter Care Teams Case Assembler Relationship Specialty Start Date End Date Orlando Zhang MD [address] [place] [address] PCP - General Family Medicine 03/01/19 documented as of this encounter
--- OUTSIDE RECORDS SUMMARY | 2025-03-16 15:04 | XMS_ITS | Clinical Summary ---
Author Organization [facility] [place] [address] Care Team Providers Care Oyster Floater Name Role Phone Unavailable Primary Care Provider Unavailabl e Social History Tobacco Use Types Packs/Day Years Used Date Smoking Tobacco: Never Assessed Comments Unknown Sex and Gender Information Value Date Recorded Sex Assigned at Not on file Legal Sex Female 8:50 PM EDT Gender Identity Not on file Sexual Orientation Not on file Plan of Treatment Health Maintenance Due Date Last Done Comments Annual Wellness Exam 1959 Hepatitis C Screening 1974 DTaP/TDaP/Td (1 - Tdap) 1975 Cologuard 2001 Colon Cancer Screening 2001 Colonoscopy 2001 FIT 2001 Sigmoidoscopy 2001 Virtual Colonography 2001 Pneumococcal Vaccine 50+ (1 of 1 - PCV) 2006 Zoster (1 of 2) 2006 Bone Density Screening 2021 COVID-19 Vaccine ( - 2023-2 5 season) 2024 Influenza Vaccine (Season Ended) 2025 Hepatitis B Vaccine Aged Out No longe r eligible based on patient's age to complete this topic Meningococcal B Vaccine Aged Out No l onger eligible based on patient's age to complete this topic
--- OUTSIDE RECORDS SUMMARY | 2025-03-16 15:04 | XMS_ITS ---
Author Organization [facility] Care Team Providers Care Quality Control Engineer Name Role Phone Aaron Cornejo Unavailable Unavailable Allergies and adverse reactions Code CodeSystem Substance Reaction Severity StartDate Concern Status 3355 RXNORM Diclofenac Unknown 10/31/2019 active Care Team Name Role Address Phone Organization Dates Aaron Cornejo PCP [address], [address], [place] (Office): : [facility] 10/31/2019 - 11/10/2019 Immunizations Immunization Status Vaccine Details Vaccine Code CodeSystem Date Notes TB 1 Step Mantoux (PPD) completed tuberculin skin test; unspecified formulation lotNumber: [id number] expiry: 03/21/2021 Mfg: Tubersol Given 0.1 ml Right Forearm subcutaneously 98 CVX created date: 10/31/2019 consent date: 10/31/2019 administere d date: 10/31/2019 Mental Status Section Date Assessment Total Score Description 11/10/2019 BIMS 15 cognitively int act CAM 0 No delirium ind icated PHQ-9 14 moderate depres blas 11/07/2019 BIMS 15 cognitively int act CAM 0 No delirium ind icated PHQ-9 14 moderate depres blas Problems Problem # Description Date of onset Resolved Date Code CodeSystem Concern Status 1 ACQUIRED ABSENCE OF LUNG [PART OF] [address] active 2 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 [address] active 3 ACUTE AND CHRONIC RESPIRATORY FAILURE WITH HYPOXIA [address] active 4 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 [address] active 5 CHRONIC OBSTRUCTIVE PULMONARY DISEASE, UNSPECIFIED [address] active 6 GASTRO-ESOPHAGE AL REFLUX DISEASE WITHOUT ESOPHAGITIS [address] active 7 HYPOTHYROIDISM, UNSPECIFIED [address] active 8 OBESITY, UNSPECIFIED [address] active 9 PERSONAL HISTORY OF OTHER MALIGNANT NEOPLASM OF BRONCHUS AND LUNG [address] active 10 PERSONAL HISTORY OF OTHER VENOUS THROMBOSIS AND EMBOLISM [address] active 11 PLEURAL EFFUSION IN OTHER CONDITIONS CLASSIFIED ELSEWHERE [address] active 12 UNSPECIFIED DIASTOLIC (CONGESTIVE) HEART FAILURE [address] active Reason for Referral No Reasons for Referral Entered Social History Social History Observation Description Start Date End Date Code Code System Current Smoking Status Tobacco smoking consumption unknown 801654397 SNOMED CT Sex Assigned At Female 1955 71890-0 [facility] Gender Identity Vital Signs Code Code System Vitals Name Values and Units Timing Information 57476-8 [facility] O2 % BldC Oximetry Value=89.0 Units= % 11/10/2019 50674-2 INC Pain Level Value=0.0 11/10/2019 9279-1 LOINC Respiratory Rate Value=18.0 Units=/m in 11/10/2019 8462-4 LOINC Blood Pressure-Diastolic Value=70 Un its=mmHg 11/10/2019 8480-6 LOINC Blood Pressure-Systolic Ccpns=919 Un its=mmHg 11/10/2019 8310-5 LOINC Body Temperature Value=98.1 Units= F 11/10/2019 8867-4 LOINC Heart rate Value=82.0 Units=/min 03/2020 55784-3 LOINC Weight Slexs=407.8 Units=Lbs 01/2020 2339-0 LOINC Blood Sugar Bopgl=785.0 Units=mg/dL 11/07/2019 8302-2 LOINC Height Value=66.0 Units=Inches 11/01/2019
--- OUTSIDE RECORDS SUMMARY | 2025-03-16 15:04 | XMS_ITS | Data Portability ---
Author Organization [facility] Address [address] [place] [address] Care Team Providers Care Military Pay Clerk Name Role Phone FRANCA BOTeetee Primary Care Provider Unavailabl e Assessment Encounter Date Assessment Date Assessment LastModified by Organization Details LastModified Time 01/19/2025 01/19/2025 Patient presente d to office today for their Medicare Annual Wellness Visit. Education was provided on healthy nutrition, including a diet rich in fruits and vegetables, minimizing simple carbohydrates, salt, and saturated fats. Encouraged regular cardiovascular exercise such as walking at least 30 minutes daily, 5 times per week. Emphasized preventive health measures and educated pt on fall prevention and community-based lifestyle interventions to help reduce health risks and promote healthy living. Medicare Preventive Services Check List reviewed and printed for patient. [email or web address] Not available 01/19/2025 13:51:34 Plan of Treatment Reminders Order Date Submit Date Provider Last Modified By Organization Details Last Modified Time Details Appointments None recorded. Lab HbA1c (hemoglobin A1c), blood 2024 025 [facility], [address], [place] [address], [place], [address], 13:10:56 microalbumi n/creatinin e, mass ratio, urine 2024 025 [facility], [address], [place] [address], [place], [address], 13:10:56 lipid panel, serum 2024 025 [facility], [address], [place] [address], [place], [address], 5 13:10:56 CMP, serum or plasma 2024 025 [facility], [address], [place] [address], [place], [address], 5 13:10:55 CBC w/ auto diff 2024 025 [facility], [address], [place] [address], [place], [address], 5 13:10:55 HbA1c (hemoglobin A1c), blood 2024 025 [place], [address], [place] [address], [place], [address], 5 07:07:06 CMP, serum or plasma 2024 025 [facility], [address], [place] [address], [place], [address], 5 07:07:05 CBC w/ auto diff 2024 025 [facility], [address], [place] [address], [place], [address], 5 07:07:04 lipid panel, serum 2024 025 [facility], [address], [place] [address], [place], [address], 5 07:07:06 HbA1c (hemoglobin A1c), blood 2023 024 [facility], [address], [place] [address], [place], [address], 4 09:08:56 CMP, serum or plasma 2023 024 [place], [address], [place] [address], [place], [address], 4 09:08:54 CBC w/ auto diff 2023 024 [place] [facility], [address], [place] [address], [place], [address], 4 09:08:54 microalbumi n/creatinin e, mass ratio, urine 2023 024 [place] [facility], [address], [place] [address], [place], [address], 4 09:08:55 lipid panel, serum 2023 024 [place] [facility], [address], [address] [address], [place], [address], 4 09:08:55 Referral None recorded. Procedures None recorded. Surgeries None recorded. Imaging None recorded. Medication Orders Fiasp U-100 Insulin 100 unit/mL subcutaneou s solution 2023 [facility], [address] [place] [address], [address], 4 14:10:24 Trulicity 0.75 mg/0.5 mL subcutaneou s pen injector 2023 [facility], [address] [place] [address], [address], 4 14:10:24 Patient TargetsNo targets recorded. Patient Instructions Encounter Date Encounter Id Patient Instructions Last Modified By Organization Details Last Modified Time 05/31/2024 [id number] learning about healthy weight efryman Not available 05/31/2024 14:10:22 body mass index: care instructions efryman Not available 05/31/2024 14:10:22 01/19/2025 [id number] advance directives: care instructions efryman Not available 01/19/2025 14:48:41 learning about depression efryman Not available 01/19/2025 14:48:41 preventing falls : care instructions efryman Not available 01/19/2025 14:48:40 medicare preventive services guide efryman Not available 01/19/2025 14:48:41 Reason for Referral None Reported. Results Created Date Observation Date Name Description Value Unit Range Abnormal Flag Note LastModifiedBy Organization Detail LastModifiedTime 05/31/20 24 06/01/2024 CBC WITH DIFFE RENTI AL/PL ATELE T WBC 8.1 x10e3 /uL 3.4-10 .8 normal Not Available [facility] ([facility]) [address] [facility], [place], [address], 06/01/2024 09:08:54 05/31/2006/01/2024 CBC WITH DIFFE RENTI AL/PL ATELE T RBC 4.37 x10e6 /uL 3.77-5 .28 normal Not Available [facility] ([facility]) [address] [place], [address], 06/01/2024 09:08:54 05/31/20 24 06/01/2024 CBC WITH DIFFE RENTI AL/PL ATELE T hemoglobin 13.7 g/dL 11.1-1 5.9 normal Not Available [facility] ([facility]) [address] [place], [address], 06/01/2024 09:08:54 05/31/20 24 06/01/2024 CBC WITH DIFFE RENTI AL/PL ATELE T hematocrit 42.8 % 34.0-4 6.6 normal Not Available [facility] ([facility]) [address] [place], [address], 06/01/2024 09:08:54 05/31/20 24 06/01/2024 CBC WITH DIFFE RENTI AL/PL ATELE T MCV 98 fL 79-97 above high normal Not Available [facility] ([facility]) [address] [place], [address], 06/01/2024 09:08:54 05/31/20 24 06/01/2024 CBC WITH DIFFE RENTI AL/PL ATELE T MCH 31.4 pg 26.6-3 3.0 normal Not Available [facility] ([facility]) [address] [facility], [place], [address], 06/01/2024 09:08:54 05/31/20 24 06/01/2024 CBC WITH DIFFE RENTI AL/PL ATELE T MCHC 32.0 g/dL 31.5-3 5.7 normal Not Available [facility] ([facility]) [address] [facility], [place], [address], 06/01/2024 09:08:54 05/31/20 24 06/01/2024 CBC WITH DIFFE RENTI AL/PL ATELE T RDW 13.5 % 11.7-1 5.4 Not Available [facility] ([facility]) [address] [place], [address], 06/01/2024 09:08:54 05/31/20 24 06/01/2024 CBC WITH DIFFE RENTI AL/PL ATELE T platelets 214 x10e3 /uL 150-45 0 normal Not Available [facility] ([facility]) [address] [place], [address], 06/01/2024 09:08:54 05/31/20 24 06/01/2024 CBC WITH DIFFE RENTI AL/PL ATELE T neutrophils 75 % not estab. normal Not Available [facility] ([facility]) [address] [place], [address], 06/01/2024 09:08:54 05/31/20 24 06/01/2024 CBC WITH DIFFE RENTI AL/PL ATELE T lymphs 18 % not estab. normal Not Available [facility] ([facility]) [address] [place], [address], 06/01/2024 09:08:54 05/31/20 24 06/01/2024 CBC WITH DIFFE RENTI AL/PL ATELE T monocytes 5 % not estab. normal Not Available [facility] ([facility]) [address] [facility], [place], [address], 06/01/2024 09:08:54 05/31/20 24 06/01/2024 CBC WITH DIFFE RENTI AL/PL ATELE T eos 2 % not estab. normal Not Available [facility] ([facility]) [address] [facility], [place], [address], 06/01/2024 09:08:54 05/31/20 24 06/01/2024 CBC WITH DIFFE RENTI AL/PL ATELE T basos 0 % not estab. normal Not Available [facility] ([facility]) [address] [facility], [place], [address], 06/01/2024 09:08:54 05/31/20 24 06/01/2024 CBC WITH DIFFE RENTI AL/PL ATELE T immature cells CIGARETTE TESTER Not Available [facility] ([facility]) [address] [place], [address], 06/01/2024 09:08:54 05/31/20 24 06/01/2024 CBC WITH DIFFE RENTI AL/PL ATELE T neutrophils (absolute) 6.0 x10e3 /uL 1.4-7. 0 normal Not Available [facility] ([facility]) [address] [place], [address], 06/01/2024 09:08:54 05/31/20 24 06/01/2024 CBC WITH DIFFE RENTI AL/PL ATELE T lymphs (absolute) 1.5 x10e3 /uL 0.7-3. 1 normal Not Available [facility] ([facility]) [address] [place], [address], 06/01/2024 09:08:54 05/31/20 24 06/01/2024 CBC WITH DIFFE RENTI AL/PL ATELE T monocytes(ab solute) 0.4 x10e3 /uL 0.1-0. 9 normal Not Available [facility] ([facility]) [address] [facility], [place], [address], 06/01/2024 09:08:54 05/31/20 24 06/01/2024 CBC WITH DIFFE RENTI AL/PL ATELE T eos (absolute) 0.2 x10e3 /uL 0.0-0. 4 normal Not Available [facility] ([facility]) [address] [facility], [place], [address], 06/01/2024 09:08:54 05/31/20 24 06/01/2024 CBC WITH DIFFE RENTI AL/PL ATELE T baso (absolute) 0.0 x10e3 /uL 0.0-0. 2 normal Not Available [facility] ([facility]) [address] [facility], [place], [address], 06/01/2024 09:08:54 05/31/20 24 06/01/2024 CBC WITH DIFFE RENTI AL/PL ATELE T immature granulocytes 0 % not estab. Not Available [facility] ([facility]) [address] [facility], [place], [address], 06/01/2024 09:08:54 05/31/20 24 06/01/2024 CBC WITH DIFFE RENTI AL/PL ATELE T immature grans (abs) 0.0 x10e3 /uL 0.0-0. 1 Not Available [facility] ([facility]) [address] [place], [address], 06/01/2024 09:08:54 05/31/20 24 06/01/2024 CBC WITH DIFFE RENTI AL/PL ATELE T NRBC CIGARETTE TESTER Not Available [facility] ([facility]) [address] [facility], [place], [address], 06/01/2024 09:08:54 05/31/20 24 06/01/2024 CBC WITH DIFFE RENTI AL/PL ATELE T hematology comments: CIGARETTE TESTER Not Available [facility] ([facility]) [address] [facility] [place], [address], 06/01/2024 09:08:54 05/31/20 24 06/01/2024 COMP. METAB OLIC PANEL (14) glucose 139 mg/dL 70-99 above high normal Not Available [facility] ([facility]) [address] [place], [address], 06/01/2024 09:08:54 05/31/20 24 06/01/2024 COMP. METAB OLIC PANEL (14) BUN 17 mg/dL 8-27 normal Not Available [facility] ([facility]) [address] [facility] [place], [address], 06/01/2024 09:08:54 05/31/20 24 06/01/2024 COMP. METAB OLIC PANEL (14) creatinine 0.82 mg/dL 0.57-1 .00 normal Not Available [facility] ([facility]) [address] [facility] [place], [address], 06/01/2024 09:08:54 05/31/20 24 06/01/2024 COMP. METAB OLIC PANEL (14) eGFR 78 mL/mi n/1.7 3 >59 normal Not Available [facility] ([facility]) [address] [facility] [place], [address], 06/01/2024 09:08:54 05/31/20 24 06/01/2024 COMP. METAB OLIC PANEL (14) BUN/creatini ne ratio 21 12-28 normal Not Available [facility] ([facility]) [address] [facility] [place], [address], 06/01/2024 09:08:54 05/31/20 24 06/01/2024 COMP. METAB OLIC PANEL (14) sodium 139 mmol/ L 134-14 4 normal Not Available [facility] ([facility]) [address] [facility] [place], [address], 06/01/2024 09:08:54 05/31/20 24 06/01/2024 COMP. METAB OLIC PANEL (14) potassium 4.4 mmol/ L 3.5-5. 2 normal Not Available [facility] ([facility]) [address] [place], [address], 06/01/2024 09:08:54 05/31/20 24 06/01/2024 COMP. METAB OLIC PANEL (14) chloride 99 mmol/ L 96-106 normal Not Available [facility] ([facility]) [address] [place], [address], 06/01/2024 09:08:54 05/31/20 24 06/01/2024 COMP. METAB OLIC PANEL (14) carbon dioxide, total 26 mmol/ L 20-29 normal Not Available [facility] ([facility]) [address] [place], [address], 06/01/2024 09:08:54 05/31/20 24 06/01/2024 COMP. METAB OLIC PANEL (14) calcium 9.2 mg/dL 8.7-10 .3 normal Not Available [facility] ([facility]) [address] [place], [address], 06/01/2024 09:08:54 05/31/20 24 06/01/2024 COMP. METAB OLIC PANEL (14) protein, total 6.5 g/dL 6.0-8. 5 normal Not Available [facility] ([facility]) [address] [place], [address], 06/01/2024 09:08:54 05/31/20 24 06/01/2024 COMP. METAB OLIC PANEL (14) albumin 4.5 g/dL 3.9-4. 9 normal Not Available [facility] ([facility]) [address] [place], [address], 06/01/2024 09:08:54 05/31/20 24 06/01/2024 COMP. METAB OLIC PANEL (14) globulin, total 2.0 g/dL 1.5-4. 5 Not Available [facility] ([facility]) [address] [facility] [place], [address], 06/01/2024 09:08:54 05/31/20 24 06/01/2024 COMP. METAB OLIC PANEL (14) bilirubin, total 0.6 mg/dL 0.0-1. 2 normal Not Available [facility] ([facility]) [address] [facility] [place], [address], 06/01/2024 09:08:54 05/31/20 24 06/01/2024 COMP. METAB OLIC PANEL (14) alkaline phosphatase 166 IU/L 44-121 above high normal Not Available [facility] ([facility]) [address] [facility] [place], [address], 06/01/2024 09:08:54 05/31/20 24 06/01/2024 COMP. METAB OLIC PANEL (14) AST (SGOT) 18 IU/L 0-40 normal Not Available [facility] ([facility]) [address] [facility] [place], [address], 06/01/2024 09:08:54 05/31/20 24 06/01/2024 COMP. METAB OLIC PANEL (14) ALT (SGPT) 21 IU/L 0-32 normal Not Available [facility] ([facility]) [address] [facility] [place], [address], 06/01/2024 09:08:54 05/31/20 24 06/01/2024 LIPID PANEL cholesterol, total 108 mg/dL 100-19 9 normal Not Available [facility] ([facility]) [address] [facility] [place], [address], 06/01/2024 09:08:55 05/31/20 24 06/01/2024 LIPID PANEL triglyceride s 89 mg/dL 0-149 normal Not Available [facility] ([facility]) [address] [place], [address], 06/01/2024 09:08:55 05/31/2006/01/2024 LIPID PANEL HDL cholesterol 33 mg/dL >39 below low normal Not Available [facility] ([facility]) [address] [place], [address], 06/01/2024 09:08:55 05/31/20 24 06/01/2024 LIPID PANEL VLDL cholesterol zach 18 mg/dL 5-40 Not Available [facility] ([facility] [address] [place], [address], 06/01/2024 09:08:55 05/31/20 24 06/01/2024 LIPID PANEL LDL chol calc ([facility]) 57 mg/dL 0-99 Not Available [facility] [address] [place], [address], 06/01/2024 09:08:55 05/31/2006/01/2024 LIPID PANEL LDL calc comment: CIGARETTE TESTER Not Available [facility] ([facility]) [address] [place], [address], 06/01/2024 09:08:55 05/31/2006/01/2024 ALBUM IN/CR EAT RATIO , RANDO M UR creatinine, urine 167.1 mg/dL not estab. normal Not Available [facility] ([facility]) [address] [place], [address], 06/01/2024 09:08:55 05/31/2006/01/2024 ALBUM IN/CR EAT RATIO , RANDO M UR albumin, urine 47.1 ug/mL not estab. Not Available [facility] ([facility]) [address] [place], [address], 06/01/2024 09:08:55 05/31/20 24 06/01/2024 ALBUM IN/CR EAT RATIO , ALFONSO Fernando UR alb/creat ratio 28 mg/g_ creat 0-29 Laura l: 0 - 29 Moder ately incre ased: 30 - 300 Sever hola incre ased: >300 Not Available [facility] ([facility]) [address] [place], [address], 06/01/2024 09:08:55 05/31/2006/01/2024 HEMOG LOBIN A1C hemoglobin A1C 7.1 % 4.8-5. 6 above high normal Predi abete s: 5.7 - 6.4 Diabe quinton: >6.4 Glyce aaron contr ol for adult s with diabe quinton: <7.0 Not Available [facility] ([facility]) [address] [place], [address], 06/01/2024 09:08:56 05/31/2006/01/2024 PLECHERYLE E NOTE please note Commen t The date and/o r time of colle ction was not indic ated on the requi sitio n as requi red by state and leanna al law. The date of recei pt of the speci men was used as the colle ction date if not suppl ied. Not Available [facility] ([facility]) [address] [place], [address], 06/01/2024 09:08:56 10/06/1910/07/2024 CBC WITH DIFFE RENTI AL/PL ATELE T WBC 6.8 x10e3 /uL 3.4-10 .8 normal Not Available [facility] ([facility]) [address] [place], [address], 10/07/2024 07:07:04 10/06/19 25 10/07/2024 CBC WITH DIFFE RENTI AL/PL ATELE T RBC 4.24 x10e6 /uL 3.77-5 .28 normal Not Available [facility] ([facility]) [address] [facility], [place], [address], 10/07/2024 07:07:04 10/06/1910/07/2024 CBC WITH DIFFE RENTI AL/PL ATELE T hemoglobin 12.6 g/dL 11.1-1 5.9 normal Not Available [facility] ([facility]) [address] [place], [address], 10/07/2024 07:07:04 10/06/19 25 10/07/2024 CBC WITH DIFFE RENTI AL/PL ATELE T hematocrit 39.3 % 34.0-4 6.6 normal Not Available [facility] ([facility]) [address] [facility], [place], [address], 10/07/2024 07:07:04 10/06/1910/07/2024 CBC WITH DIFFE RENTI AL/PL ATELE T MCV 93 fL 79-97 normal Not Available [facility] ([facility]) [address] [facility], [place], [address], 10/07/2024 07:07:04 10/06/1910/07/2024 CBC WITH DIFFE RENTI AL/PL ATELE T MCH 29.7 pg 26.6-3 3.0 normal Not Available [facility] ([facility]) [address] [place], [address], 10/07/2024 07:07:04 10/06/1910/07/2024 CBC WITH DIFFE RENTI AL/PL ATELE T MCHC 32.1 g/dL 31.5-3 5.7 normal Not Available [facility] ([facility]) [address] [place], [address], 10/07/2024 07:07:04 10/06/19 25 10/07/2024 CBC WITH DIFFE RENTI AL/PL ATELE T RDW 13.3 % 11.7-1 5.4 Not Available [facility] ([facility]) [address] [facility], [place], [address], 10/07/2024 07:07:04 10/06/19 25 10/07/2024 CBC WITH DIFFE RENTI AL/PL ATELE T platelets 209 x10e3 /uL 150-45 0 normal Not Available [facility] ([facility]) [address] [facility], [place], [address], 10/07/2024 07:07:04 10/06/19 25 10/07/2024 CBC WITH DIFFE RENTI AL/PL ATELE T neutrophils 78 % not estab. normal Not Available [facility] ([facility]) [address] [facility], [place], [address], 10/07/2024 07:07:04 10/06/19 25 10/07/2024 CBC WITH DIFFE RENTI AL/PL ATELE T lymphs 15 % not estab. normal Not Available [facility] ([facility]) [address] [facility], [place], [address], 10/07/2024 07:07:04 10/06/19 25 10/07/2024 CBC WITH DIFFE RENTI AL/PL ATELE T monocytes 5 % not estab. normal Not Available [facility] ([facility]) [address] [facility], [place], [address], 10/07/2024 07:07:04 10/06/19 25 10/07/2024 CBC WITH DIFFE RENTI AL/PL ATELE T eos 2 % not estab. normal Not Available [facility] ([facility]) [address] [facility], [place], [address], 10/07/2024 07:07:04 10/06/19 25 10/07/2024 CBC WITH DIFFE RENTI AL/PL ATELE T basos 0 % not estab. normal Not Available [facility] ([facility]) [address] [facility], [place], [address], 10/07/2024 07:07:04 10/06/19 25 10/07/2024 CBC WITH DIFFE RENTI AL/PL ATELE T immature cells CIGARETTE TESTER Not Available [facility] ([facility] [address] [place], [address], 10/07/2024 07:07:04 10/06/19 25 10/07/2024 CBC WITH DIFFE RENTI AL/PL ATELE T neutrophils (absolute) 5.4 x10e3 /uL 1.4-7. 0 normal Not Available [facility] ([facility] [address] [place], [address], 10/07/2024 07:07:04 10/06/19 25 10/07/2024 CBC WITH DIFFE RENTI AL/PL ATELE T lymphs (absolute) 1.0 x10e3 /uL 0.7-3. 1 normal Not Available [facility] ([facility] [address] [place], [address], 10/07/2024 07:07:04 10/06/19 25 10/07/2024 CBC WITH DIFFE RENTI AL/PL ATELE T monocytes(ab solute) 0.3 x10e3 /uL 0.1-0. 9 normal Not Available [facility] ([facility] [address] [place], [address], 10/07/2024 07:07:04 10/06/19 25 10/07/2024 CBC WITH DIFFE RENTI AL/PL ATELE T eos (absolute) 0.1 x10e3 /uL 0.0-0. 4 normal Not Available [facility] ([facility] [address] [place], [address], 10/07/2024 07:07:04 10/06/19 25 10/07/2024 CBC WITH DIFFE RENTI AL/PL ATELE T baso (absolute) 0.0 x10e3 /uL 0.0-0. 2 normal Not Available [facility] ([facility]) [address] [facility] [place], [address], 10/07/2024 07:07:04 10/06/19 25 10/07/2024 CBC WITH DIFFE RENTI AL/PL ATELE T immature granulocytes 0 % not estab. Not Available [facility] ([facility]) [address] [facility], [place], [address], 10/07/2024 07:07:04 10/06/19 25 10/07/2024 CBC WITH DIFFE RENTI AL/PL ATELE T immature grans (abs) 0.0 x10e3 /uL 0.0-0. 1 Not Available [facility] ([facility]) [address] [facility], [place], [address], 10/07/2024 07:07:04 10/06/19 25 10/07/2024 CBC WITH DIFFE RENTI AL/PL ATELE T NRBC CIGARETTE TESTER Not Available [facility] ([facility]) [address] [facility], [place], [address], 10/07/2024 07:07:04 10/06/19 25 10/07/2024 CBC WITH DIFFE RENTI AL/PL ATELE T hematology comments: CIGARETTE TESTER Not Available [facility] ([facility]) [address] [facility], [place], [address], 10/07/2024 07:07:04 10/06/19 25 10/07/2024 COMP. METAB OLIC PANEL (14) glucose 129 mg/dL 70-99 above high normal Not Available [facility] ([facility]) [address] [facility], [place], [address], 10/07/2024 07:07:05 10/06/19 25 10/07/2024 COMP. METAB OLIC PANEL (14) BUN 20 mg/dL 8-27 normal Not Available [facility] ([facility]) [address] [facility], [place], [address], 10/07/2024 07:07:05 10/06/19 25 10/07/2024 COMP. METAB OLIC PANEL (14) creatinine 0.68 mg/dL 0.57-1 .00 normal Not Available [facility] ([facility]) [address] [facility] [place], [address], 10/07/2024 07:07:05 10/06/19 25 10/07/2024 COMP. METAB OLIC PANEL (14) eGFR 95 mL/mi n/1.7 3 >59 normal Not Available [facility] ([facility]) [address] [facility] [place], [address], 10/07/2024 07:07:05 10/06/19 25 10/07/2024 COMP. METAB OLIC PANEL (14) BUN/creatini ne ratio 29 12-28 above high normal Not Available [facility] ([facility]) [address] [facility] [place], [address], 10/07/2024 07:07:05 10/06/19 25 10/07/2024 COMP. METAB OLIC PANEL (14) sodium 143 mmol/ L 134-14 4 normal Not Available [facility] ([facility]) [address] [facility] [place], [address], 10/07/2024 07:07:05 10/06/19 25 10/07/2024 COMP. METAB OLIC PANEL (14) potassium 4.3 mmol/ L 3.5-5. 2 normal Not Available [facility] ([facility]) [address] [facility] [place], [address], 10/07/2024 07:07:05 10/06/19 25 10/07/2024 COMP. METAB OLIC PANEL (14) chloride 101 mmol/ L 96-106 normal Not Available [facility] ([facility]) [address] [facility] [place], [address], 10/07/2024 07:07:05 10/06/19 25 10/07/2024 COMP. METAB OLIC PANEL (14) carbon dioxide, total 27 mmol/ L 20-29 normal Not Available [facility] ([facility]) [address] [place], [address], 10/07/2024 07:07:05 10/06/19 25 10/07/2024 COMP. METAB OLIC PANEL (14) calcium 8.7 mg/dL 8.7-10 .3 normal Not Available [facility] ([facility]) [address] [place], [address], 10/07/2024 07:07:05 10/06/19 25 10/07/2024 COMP. METAB OLIC PANEL (14) protein, total 6.4 g/dL 6.0-8. 5 normal Not Available [facility] ([facility]) [address] [place], [address], 10/07/2024 07:07:05 10/06/19 25 10/07/2024 COMP. METAB OLIC PANEL (14) albumin 4.2 g/dL 3.9-4. 9 normal Not Available [facility] ([facility] [address] [place], [address], 10/07/2024 07:07:05 10/06/19 25 10/07/2024 COMP. METAB OLIC PANEL (14) globulin, total 2.2 g/dL 1.5-4. 5 Not Available [facility] ([facility]) [address] [facility], [address], 10/07/2024 07:07:05 10/06/19 25 10/07/2024 COMP. METAB OLIC PANEL (14) bilirubin, total 0.4 mg/dL 0.0-1. 2 normal Not Available [facility] ([facility] [address] [place], [address], 10/07/2024 07:07:05 10/06/19 25 10/07/2024 COMP. METAB OLIC PANEL (14) alkaline phosphatase 151 IU/L 44-121 above high normal Not Available [facility] ([facility]) [address] [facility] [place], [address], 10/07/2024 07:07:05 10/06/19 25 10/07/2024 COMP. METAB OLIC PANEL (14) AST (SGOT) 17 IU/L 0-40 normal Not Available [facility] ([facility]) [address] [facility] [place], [address], 10/07/2024 07:07:05 10/06/19 25 10/07/2024 COMP. METAB OLIC PANEL (14) ALT (SGPT) 15 IU/L 0-32 normal Not Available [facility] ([facility]) [address] [facility] [place], [address], 10/07/2024 07:07:05 10/06/19 25 10/07/2024 LIPID PANEL cholesterol, total 155 mg/dL 100-19 9 normal Not Available [facility] ([facility]) [address] [facility] [place], [address], 10/07/2024 07:07:06 10/06/19 25 10/07/2024 LIPID PANEL triglyceride s 126 mg/dL 0-149 normal Not Available [facility] [address] [facility] [place], [address], 10/07/2024 07:07:06 10/06/19 25 10/07/2024 LIPID PANEL HDL cholesterol 44 mg/dL >39 normal Not Available [facility]) [address] [facility] [place], [address], 10/07/2024 07:07:06 10/06/19 25 10/07/2024 LIPID PANEL VLDL cholesterol zach 23 mg/dL 5-40 Not Available [facility] ([facility]) [address] [facility] [place], [address], 10/07/2024 07:07:06 10/06/19 25 10/07/2024 LIPID PANEL LDL chol calc ([facility]) 88 mg/dL 0-99 Not Available [facility] ([facility]) [address] [place], [address], 10/07/2024 07:07:06 10/06/19 25 10/07/2024 LIPID PANEL LDL calc comment: CIGAR[employer]TE [employer] Not Available [facility] ([facility]) [address] [place], [address], 10/07/2024 07:07:06 10/06/19 25 10/07/2024 HEMOG LOBIN A1C hemoglobin A1C 6.9 % 4.8-5. 6 above high normal Predi abete s: 5.7 - 6.4 Diabe quinton: >6.4 Glyce aaron contr ol for adult s with diabe quinton: <7.0 Not Available [facility] ([facility]) [address] [facility], [place], [address], 10/07/2024 07:07:06 01/20/20 25 01/20/2025 CBC WITH DIFFE RENTI AL/PL ATELE T WBC 7.8 x10e3 /uL 3.4-10 .8 normal Not Available [facility] ([facility]) [address] [place], [address], 01/20/2025 13:10:55 01/20/20 25 01/20/2025 CBC WITH DIFFE RENTI AL/PL ATELE T RBC 4.26 x10e6 /uL 3.77-5 .28 normal Not Available [facility] ([facility]) [address] [place], [address], 01/20/2025 13:10:55 01/20/20 25 01/20/2025 CBC WITH DIFFE RENTI AL/PL ATELE T hemoglobin 12.7 g/dL 11.1-1 5.9 normal Not Available [facility] ([facility]) [address] [place], [address], 01/20/2025 13:10:55 01/20/20 25 01/20/2025 CBC WITH DIFFE RENTI AL/PL ATELE T hematocrit 40.2 % 34.0-4 6.6 normal Not Available [facility] ([facility]) [address] [facility], [place], [address], 01/20/2025 13:10:55 01/20/20 25 01/20/2025 CBC WITH DIFFE RENTI AL/PL ATELE T MCV 94 fL 79-97 normal Not Available [facility] ([facility]) [address] [place], [address], 01/20/2025 13:10:55 01/20/20 25 01/20/2025 CBC WITH DIFFE RENTI AL/PL ATELE T MCH 29.8 pg 26.6-3 3.0 normal Not Available [facility] ([facility]) [address] [place], [address], 01/20/2025 13:10:55 01/20/20 25 01/20/2025 CBC WITH DIFFE RENTI AL/PL ATELE T MCHC 31.6 g/dL 31.5-3 5.7 normal Not Available [facility] ([facility]) [address] [place], [address], 01/20/2025 13:10:55 01/20/20 25 01/20/2025 CBC WITH DIFFE RENTI AL/PL ATELE T RDW 16.0 % 11.7-1 5.4 above high normal Not Available [facility] ([facility]) [address] [place], [address], 01/20/2025 13:10:55 01/20/20 25 01/20/2025 CBC WITH DIFFE RENTI AL/PL ATELE T platelets 222 x10e3 /uL 150-45 0 normal Not Available [facility] ([facility]) [address] [place], [address], 01/20/2025 13:10:55 01/20/20 25 01/20/2025 CBC WITH DIFFE RENTI AL/PL ATELE T neutrophils 74 % not estab. normal Not Available [facility] ([facility]) [address] [facility], [place], [address], 01/20/2025 13:10:55 01/20/20 25 01/20/2025 CBC WITH DIFFE RENTI AL/PL ATELE T lymphs 20 % not estab. normal Not Available [facility] ([facility]) [address] [facility], [place], [address], 01/20/2025 13:10:55 01/20/20 25 01/20/2025 CBC WITH DIFFE RENTI AL/PL ATELE T monocytes 5 % not estab. normal Not Available [facility] ([facility]) [address] [facility], [place], [address], 01/20/2025 13:10:55 01/20/20 25 01/20/2025 CBC WITH DIFFE RENTI AL/PL ATELE T eos 1 % not estab. normal Not Available [facility] ([facility]) [address] [facility], [place], [address], 01/20/2025 13:10:55 01/20/20 25 01/20/2025 CBC WITH DIFFE RENTI AL/PL ATELE T basos 0 % not estab. normal Not Available [facility] ([facility]) [address] [facility], [place], [address], 01/20/2025 13:10:55 01/20/20 25 01/20/2025 CBC WITH DIFFE RENTI AL/PL ATELE T immature cells [employer]IG[employer] Not Available [facility] ([facility]) [address] [place], [address], 01/20/2025 13:10:55 01/20/20 25 01/20/2025 CBC WITH DIFFE RENTI AL/PL ATELE T neutrophils (absolute) 5.7 x10e3 /uL 1.4-7. 0 normal Not Available [facility] ([facility]) [address] [place], [address], 01/20/2025 13:10:55 01/20/20 25 01/20/2025 CBC WITH DIFFE RENTI AL/PL ATELE T lymphs (absolute) 1.5 x10e3 /uL 0.7-3. 1 normal Not Available [facility] ([facility]) [address] [place], [address], 01/20/2025 13:10:55 01/20/20 25 01/20/2025 CBC WITH DIFFE RENTI AL/PL ATELE T monocytes(ab solute) 0.4 x10e3 /uL 0.1-0. 9 normal Not Available [facility] ([facility]) [address] [place], [address], 01/20/2025 13:10:55 01/20/20 25 01/20/2025 CBC WITH DIFFE RENTI AL/PL ATELE T eos (absolute) 0.1 x10e3 /uL 0.0-0. 4 normal Not Available [facility] ([facility]) [address] [place], [address], 01/20/2025 13:10:55 01/20/20 25 01/20/2025 CBC WITH DIFFE RENTI AL/PL ATELE T baso (absolute) 0.0 x10e3 /uL 0.0-0. 2 normal Not Available [facility] ([facility]) [address] [place], [address], 01/20/2025 13:10:55 01/20/20 25 01/20/2025 CBC WITH DIFFE RENTI AL/PL ATELE T immature granulocytes 0 % not estab. Not Available [facility] ([facility]) [address] [place], [address], 01/20/2025 13:10:55 01/20/20 25 01/20/2025 CBC WITH DIFFE RENTI AL/PL ATELE T immature grans (abs) 0.0 x10e3 /uL 0.0-0. 1 Not Available [facility] ([facility]) [address] [facility], [place], [address], 01/20/2025 13:10:55 01/20/20 25 01/20/2025 CBC WITH DIFFE RENTI AL/PL ATELE T NRBC [employer] Not Available [facility] ([facility]) [address] [facility], [place], [address], 01/20/2025 13:10:55 01/20/20 25 01/20/2025 CBC WITH DIFFE RENTI AL/PL ATELE T hematology comments: CIG[employer]TE TESTER Not Available [facility] ([facility]) [address] [facility], [place], [address], 01/20/2025 13:10:55 01/20/20 25 01/20/2025 COMP. METAB OLIC PANEL (14) glucose 133 mg/dL 70-99 above high normal Not Available [facility] ([facility]) [address] [facility], [place], [address], 01/20/2025 13:10:55 01/20/20 25 01/20/2025 COMP. METAB OLIC PANEL (14) BUN 17 mg/dL 8-27 normal Not Available [facility] ([facility]) [address] [facility], [place], [address], 01/20/2025 13:10:55 01/20/20 25 01/20/2025 COMP. METAB OLIC PANEL (14) creatinine 0.76 mg/dL 0.57-1 .00 normal Not Available [facility] ([facility]) [address] [facility], [place], [address], 01/20/2025 13:10:55 01/20/20 25 01/20/2025 COMP. METAB OLIC PANEL (14) eGFR 85 mL/mi n/1.7 3 >59 normal Not Available [facility] ([facility]) [address] [facility] [place], [address], 01/20/2025 13:10:55 01/20/20 25 01/20/2025 COMP. METAB OLIC PANEL (14) BUN/creatini ne ratio 22 12-28 normal Not Available [facility] ([facility]) [address] [facility] [place], [address], 01/20/2025 13:10:55 01/20/20 25 01/20/2025 COMP. METAB OLIC PANEL (14) sodium 139 mmol/ L 134-14 4 normal Not Available [facility] ([facility]) [address] [facility], [place], [address], 01/20/2025 13:10:55 01/20/20 25 01/20/2025 COMP. METAB OLIC PANEL (14) potassium 4.1 mmol/ L 3.5-5. 2 normal Not Available [facility] ([facility]) [address] [facility] [place], [address], 01/20/2025 13:10:55 01/20/20 25 01/20/2025 COMP. METAB OLIC PANEL (14) chloride 96 mmol/ L 96-106 normal Not Available [facility] ([facility]) [address] [facility] [place], [address], 01/20/2025 13:10:55 01/20/20 25 01/20/2025 COMP. METAB OLIC PANEL (14) carbon dioxide, total 28 mmol/ L 20-29 normal Not Available [facility] ([facility]) [address] [facility] [place], [address], 01/20/2025 13:10:55 01/20/20 25 01/20/2025 COMP. METAB OLIC PANEL (14) calcium 8.9 mg/dL 8.7-10 .3 normal Not Available [facility] ([facility]) [address] [place], [address], 01/20/2025 13:10:55 01/20/20 25 01/20/2025 COMP. METAB OLIC PANEL (14) protein, total 6.8 g/dL 6.0-8. 5 normal Not Available [facility] ([facility]) [address] [place], [address], 01/20/2025 13:10:55 01/20/20 25 01/20/2025 COMP. METAB OLIC PANEL (14) albumin 4.4 g/dL 3.9-4. 9 normal Not Available [facility] ([facility] [address] [place], [address], 01/20/2025 13:10:55 01/20/20 25 01/20/2025 COMP. METAB OLIC PANEL (14) globulin, total 2.4 g/dL 1.5-4. 5 Not Available [facility] ([facility]) [address] [place], [address], 01/20/2025 13:10:55 01/20/20 25 01/20/2025 COMP. METAB OLIC PANEL (14) bilirubin, total 0.3 mg/dL 0.0-1. 2 normal Not Available [facility] ([facility] [address] [place], [address], 01/20/2025 13:10:55 01/20/20 25 01/20/2025 COMP. METAB OLIC PANEL (14) alkaline phosphatase 132 IU/L 44-121 above high normal Not Available [facility] ([facility] [address] [place], [address], 01/20/2025 13:10:55 01/20/20 25 01/20/2025 COMP. METAB OLIC PANEL (14) AST (SGOT) 16 IU/L 0-40 normal Not Available [facility] ([facility]) [address] [facility], [place], [address], 01/20/2025 13:10:55 01/20/20 25 01/20/2025 COMP. METAB OLIC PANEL (14) ALT (SGPT) 18 IU/L 0-32 normal Not Available [facility] ([facility]) [address] [place], [address], 01/20/2025 13:10:55 01/20/20 25 01/20/2025 LIPID PANEL cholesterol, total 214 mg/dL 100-19 9 above high normal Not Available [facility] ([facility]) [address] [place], [address], 01/20/2025 13:10:56 01/20/20 25 01/20/2025 LIPID PANEL triglyceride s 135 mg/dL 0-149 normal Not Available [facility] ([facility]) [address] [place], [address], 01/20/2025 13:10:56 01/20/20 25 01/20/2025 LIPID PANEL HDL cholesterol 45 mg/dL >39 normal Not Available [facility] ([facility]) [address] [place], [address], 01/20/2025 13:10:56 01/20/20 25 01/20/2025 LIPID PANEL VLDL cholesterol zach 24 mg/dL 5-40 Not Available [facility] ([facility]) [address] [place], [address], 01/20/2025 13:10:56 01/20/20 25 01/20/2025 LIPID PANEL LDL chol calc ([facility]) 145 mg/dL 0-99 above high normal Not Available [facility] ([facility]) [address] [place], [address], 01/20/2025 13:10:56 01/20/20 25 01/20/2025 LIPID PANEL LDL calc comment: [employer]IG[employer] Not Available [facility] ([facility]) [address] [facility], [place], [address], 01/20/2025 13:10:56 01/20/20 25 01/20/2025 ALBUM IN/CR EAT RATIO , RANDO M UR creatinine, urine 142.2 mg/dL not estab. normal Not Available [facility] ([facility]) [address] [place], [address], 01/20/2025 13:10:56 01/20/20 25 01/20/2025 ALBUM IN/CR EAT RATIO , RANDO M UR albumin, urine 24.5 ug/mL not estab. Not Available [facility] ([facility]) [address] [facility], [place], [address], 01/20/2025 13:10:56 01/20/20 25 01/20/2025 ALBUM IN/CR EAT RATIO , RANDO M UR alb/creat ratio 17 mg/g_ creat 0-29 Laura l: 0 - 29 Moder ately incre ased: 30 - 300 Sever hola incre ased: >300 Not Available [facility] ([facility]) [address] [facility], [place], [address], 01/20/2025 13:10:56 01/20/20 25 01/20/2025 HEMOG LOBIN A1C hemoglobin A1C 7.4 % 4.8-5. 6 above high normal Predi abete s: 5.7 - 6.4 Diabe quinton: >6.4 Glyce aaron contr ol for adult s with diabe quinton: <7.0 Not Available [facility] ([facility]) [address] [facility], [place], [address], 01/20/2025 13:10:56 01/20/20 25 01/20/2025 PLEAS E NOTE please note Commen t The date and/o r time of colle ction was not indic ated on the requi sitio n as requi red by state and leanna al law. The date of recei pt of the speci men was used as the colle ction date if not suppl ied. Not Available [facility] ([facility]) [address], [place], [address], 01/20/2025 13:10:57 06/30/20 24 04/26/2024 MAMMO , scree zayra, tomos ynthe sis, bilat eral No observ ation record ed. [facility] [address], [place], [address], 07/04/2024 12:22:36 Result Notes None recorded. Problems Name Problem SNOMED Code Status Onset Date Resolution Date Notes Provider Name and Address Organization Details Recorded Time Type 2 diabetes mellitus 09205486 Active 2021 Adam Barlowvi, IMPORT SPECIALIST [address], [place], [address], [place] - [facility] 16:15:36 History of cerebrovascu lar accident without residual deficits 643571564 Active Carolinafermin vi, IMPORT SPECIALIST [address], [place], [address], [place] - [facility] 2 16:15:31 Hypercholest erolemia 48646670 Active 2021 Carolinaneenateetee Barlowvi, IMPORT SPECIALIST [address], [place], [address], [place] - [facility] 2 16:16:05 History of malignant neoplasm of lung 377698608 Active 2021 removed right lower lung Magaly Stears null, [place] - [facility] 4 13:50:05 Generalized headache 363466121 Active Chava Markesber y null, [place] - [facility] 6 15:57:11 Gastroesopha geal reflux disease 225232388 Active Chava Markesber y null, [place] - [facility] 6 15:57:24 Chronic obstructive pulmonary disease 34374058 Active Chava Markesber y null, [place] - [facility] 6 15:57:37 Essential hypertension 33350955 Active Chava Markesber y null, [place] - [facility] 6 15:57:53 Malignant neoplasm of urinary bladder 545984263 Active 2024 Adam Bo, IMPORT SPECIALIST [address], [place], [address], [place] - [facility] 11:44:37 Problem Notes None recorded. Procedures Surgical History Date Name Laterality Status Provider Name and Address Organization Details Recorded Time 01/20/20 25 Advance Care Planning completed Flow[place]amiro Sol [place] - [facility] 01/19/2025 13:51:35 01/20/20 25 Functional Status Assessed completed Flowerramiro Sol [place] - [facility] 01/19/2025 13:51:35 04/26/20 24 Date of Last Mammogram completed Magaly Valles [place] - [facility] 10/06/2024 10:40:53 04/11/20 19 Cancer Surgery completed Flowerramiro Sol [facility] 01/19/2025 13:52:29 04/11/20 19 lobectomy of lung completed Shakira Grimes [place] - [facility] 04/18/2019 12:56:00 12/01/19 19 Joint Injection completed Kerline Odell [place] - [facility] 12/01/2018 14:12:48 10/13/19 19 Systolic B/P less than 130 mm Hg completed [facility] - [facility] 10/13/2018 08:53:26 10/13/19 19 Diastolic B/P less than 80 mm Hg completed [facility] - [facility] 10/13/2018 08:53:28 10/06/19 19 Systolic B/P less than 130 mm Hg completed [facility] - [facility] 10/07/2018 15:28:11 10/06/19 19 Diastolic B/P less than 80 mm Hg completed [facility] - [facility] 10/07/2018 15:28:14 02/16/20 15 Date of Last Pap Smear completed Chava Beach [place] - [facility] 09/23/2016 15:47:00 02/02/19 88 Tubal Ligation completed Flowerramiro Sol [place] - [facility] 01/19/2025 13:52:29 10/05/18 70 Tonsillectomy completed Flowerramiro Sol [place] - [facility] 01/19/2025 13:52:29 procedure on urinary bladder completed Magaly Valles [place] - [facility] 10/06/2024 10:40:18 Breast Biopsy completed Chava Beach [facility] 09/23/2016 15:53:29 Cholecystectomy, laparoscopic completed Chava Beach [facility] 09/23/2016 15:53:41 Colposcopy completed [place] [facility] 09/23/2016 15:54:18 Endometrial Biopsy completed Chava Yong [facility] 09/23/2016 15:54:41 Unlisted procedure stomach completed [place] [facility] 09/23/2016 15:54:55 Tonsillectomy completed [place] [facility] 09/23/2016 15:55:10 Tubal Ligation completed [place] [facility] 09/23/2016 15:55:22 Imaging Results None recorded. Procedure Notes None recorded. Medical Equipment None Reported. Allergies No known drug allergies Medications Name Sig Start Date Stop Date Status Note LastModified by Organization Details LastModified Time Prescript ion - New active Not Available Not Available No t Available quetiapin e 25 mg tablet take ONE tablet by MOUTH TWICE DAILY 30 DAYS As Needed FOR anxiety] 04/11 completed Not Available Not Available Not Available celecoxib 200 mg capsule Take 1 capsule every day by oral route for 90 days. 04/11 completed Not Available Not Available Not Available amoxicill in 500 mg capsule 04/24 completed Not Available Not Available Not Available furosemid e 40 mg tablet TAKE 1 TABLET BY MOUTH ONCE A DAY 04/11 completed furosemi de 40 mg oral tablet;P rescribe Status: Prescrib ed on: 01/24/20 14 10:22AM; User: wood Not Available Not Available Not Available Augmentin 875 mg-125 mg tablet take 1 tablet by oral route BID for 20 days 11/03 completed Augmenti n 875-125 mg oral tablet;R ecorded Status: Recorded on: 10/01/20 11 3:23PM;D iscontin ued Status: Disconti nued on: 11/03/19 12 9:07AM;U ser: markesbe ryh;Est. Completi on: 10/21/19 12;Print ed: 10/01/20 11 Not Available Not Available Not Available promethaz ine-DM 6.25 mg-15 mg/5 mL oral syrup take 5 millilit ers by oral route every 6 hours as needed for 7 days 02/19 completed Not Available Not Available Not Available atorvasta tin 80 mg tablet TAKE ONE (1) TABLET EVERY DAY BY ORAL ROUTE. active Not Available Not Available No t Available potassium chloride ER 10 mEq capsule,e xtended release take 1 capsule by oral route daily for 90 days 03/31 completed guillermo m chloride 10 mEq oral capsule, extended release; Prescrib e Status: Prescrib ed on: 04/24/20 14 3:55PM;U ser: woodst;E st. Completi on: 03/31/20 15;Pharm acyVerif ied: 04/24/20 14 3:55PM;P rinted: 04/05/20 14 Not Available Not Available Not Available ipratropi um 0.5 mg-albute rol 3 mg (2.5 mg base)/3 mL nebulizat ion soln INHALE THREE (3) ML FOUR (4) TIMES A DAY BY NEBULIZA TION ROUTE. active Not Available Not Available No t Available Carafate 100 mg/mL oral suspensio n Take 10 mL 4 times a day by oral route. 04/11 completed Not Available Not Available Not Available Depo-Medr ol 40 mg/mL suspensio n for injection Take 40 mg by injectio n route. 04/11 completed Not Available Not Available Not Available Zyrtec-D 5 mg-120 mg tablet,ex tended release Take 1 tablet every 12 hours by oral route for 10 days. 04/11 completed Not Available Not Available Not Available torsemide 20 mg tablet Take 1 tablet every day by oral route. active Not Available Not Available No t Available azithromy radha 250 mg tablet TAKE TWO TABLETS BY MOUTH ONCE DAILY FOR 3 DAYS -- FINISH ALL MEDICINE -- 10/13 completed Not Available Not Available Not Available bisoprolo l 10 mg-hydroc hlorothia zide 6.25 mg tablet TAKE ONE TABLET BY MOUTH EVERY DAY 04/11 completed Not Available Not Available Not Available Elocon 0.1 % topical lotion (solution ) apply a few drops to the affected area(s) by topical route once daily for 30 days 11/30 completed Elocon 0.1 % topical solution ;Recorde d Status: Recorded on: 09/21/20 13 3:37PM;D iscontin ued Status: Disconti nued on: 11/30/19 14 9:55AM;U ser: markesbe ryh;Est. Completi on: 10/21/19 14;Indic ation: Seborrhe ic Dermatit is - ([phone] [id number]) Not Available Not Available Not Available benzonata te 200 mg capsule Take 1 capsule 3 times a day by oral route. 04/11 completed Not Available Not Available Not Available Lotrisone 1 %-0.05 % topical cream apply bid 10/08 completed lotrison e cream;co mment: duoplica te;Recor ded Status: Recorded on: 09/08/20 08 3:28PM;D iscontin ued Status: Disconti nued on: 10/08/19 11 2:15PM;U ser: [email or web address] yvette;Est. Completi on: 09/15/20 08;Indic ation: - (-5);Serena nted: 09/08/20 08 Not Available Not Available Not Available Phenergan -Codeine 6.25 mg-10 mg/5 mL oral syrup take 5 millilit ers by oral route every 6 hours as needed, not to exceed 30 mL in 24 hours for 7 days 10/08 completed Phenerga n-Codein e 6.25-10 mg/5 mL oral syrup;Re corded Status: Recorded on: 06/20/20 09 2:31PM;D iscontin ued Status: Disconti nued on: 10/08/19 11 2:15PM;U ser: neuss;Es t. Completi on: 06/27/20 09;Indic ation: Cough - ([id number]) Not Available Not Available Not Available senna 8.6 mg tablet TAKE ONE (1) TABLET EVERY DAY BY ORAL ROUTE DIRECTED FOR 30 DAYS. active Not Available Not Available No t Available meloxicam 15 mg tablet take 1 tablet (15 mg) by oral route once daily for 30 days 02/15 completed meloxica m 15 mg oral tablet;P rescribe Status: Prescrib ed on: 08/07/20 14 10:35AM; Disconti nued Status: Disconti nued on: 02/16/20 15 10:12AM; User: norma crawford;Est. Completi on: 01/05/20 15;Pharm acVeronica ied: 08/07/20 14 10:35AM Not Available Not Available Not Available FreeStyle Lancets 28 gauge check blood sugar THREE TIMES DAILY active Not Available Not Available No t Available Levaquin 750 mg tablet Take 1 tablet every day by oral route for 7 days. 02/19 completed Not Available Not Available Not Available Accu-Chek Softclix Lancets USE DIRECTED active Not Available Not Available No t Available acetamino phen 300 mg-codein e 30 mg tablet TAKE ONE TABLET BY MOUTH THREE TIMES DAILY NEEDED FOR PAIN MAY CAUSE DROWSINE SS 04/24 completed Not Available Not Available Not Available omeprazol e 40 mg capsule,d elayed release TAKE ONE (1) CAPSULE BY MOUTH ONCE A DAY BEFORE A MEAL active Not Available Not Available No t Available aspirin 81 mg tablet,de layed release Take 1 tablet every day by oral route. 2022 active Not Available Not Available Not Avai lable amoxicill in 500 mg tablet Take 1 tablet twice a day by oral route for 10 days. 04/24 completed Not Available Not Available Not Available Depo-Medr ol 80 mg/mL suspensio n for injection Take 80 mg by injectio n route. 10/13 completed Not Available Not Available Not Available bisoprolo l fumarate 10 mg tablet 03/24 completed Not Available Not Available Not Available bisoprolo l fumarate 5 mg tablet Take 1 tablet every day by oral route. active Not Available Not Available No t Available Aleve 220 mg tablet Take 1 tablet every day by oral route. active Not Available Not Available No t Available ceftriaxo ne 1 gram solution for injection Take 1 g by injectio n route. 10/13 completed Not Available Not Available Not Available lorazepam 0.5 mg tablet TAKE ONE TABLET BY MOUTH TWICE DAILY NEEDED FOR ANXIETY 04/11 completed Not Available Not Available Not Available tamsulosi n 0.4 mg capsule TAKE ONE (1) CAPSULE (0.4 MG TOTAL) BY MOUTH AT BEDTIME FOR 14 DAYS. 01/13 completed Not Available Not Available Not Available dicyclomi ne 20 mg tablet TAKE ONE TABLET BY MOUTH THREE TIMES DAILY NEEDED FOR abdomina l discomfo rt 10/13 completed Not Available Not Available Not Available meclizine 25 mg tablet Take 1 tablet 3 times a day by oral route as needed for 30 days. 04/11 completed Not Available Not Available Not Available diazepam 2 mg tablet Take 1 tablet 3 times a day by oral route. 04/11 completed Not Available Not Available Not Available benzonata te 100 mg capsule take 1 capsule (100 mg) by oral route 3 times per day prn cough 02/19 completed Not Available Not Available Not Available cephalexi n 500 mg capsule TAKE ONE CAPSULE BY MOUTH EVERY 8 HOURS -- FINISH ALL MEDICINE -- 04/24 completed Not Available Not Available Not Available lansopraz ole 30 mg capsule,d elayed release TAKE 1 CAPSULE DAILY 12/11 completed lansopra zole 30 mg oral capsule, delayed release( /EC);c omment: insuranc e will no longer cover;Pr escribe Status: Prescrib ed on: 04/19/20 15 10:22AM; Disconti nued Status: Disconti nued on: 12/12/19 16 1:15PM;U ser: woodst Not Available Not Available Not Available indometha radha 50 mg capsule TAKE ONE CAPSULE BY MOUTH EVERY DAY --TAKE WITH FOOD-- 04/24 completed Not Available Not Available Not Available Levaquin 500 mg tablet Take 1 tablet every 24 hours by oral route. 10/13 completed Not Available Not Available Not Available ergocalci ferol (vitamin D2) 1,250 mcg (50,000 unit) capsule TAKE ONE CAPSULE BY MOUTH EVERY WEEK 05/31 completed Not Available Not Available Not Available lorazepam 1 mg tablet TAKE ONE TABLET BY MOUTH AT BEDTIME NEEDED FOR SLEEP 04/11 completed Not Available Not Available Not Available insulin lispro (U-100) 100 unit/mL subcutane ous solution INJECT SUBCUTAN EOUSLY DIRECTeD max 100 units PER DAY in omnipod 04/11 completed Not Available Not Available Not Available cefuroxim e axetil 500 mg tablet take 1 tablet (500 mg) by oral route 2 times per day for 7 days 02/04 completed Not Available Not Available Not Available methylpre dnisolone 4 mg tablets in a dose pack TAKE ELEAZAR Ruiz TO PACKAGE INSTRUCT IONS --TAKE WITH FOOD-- -- FINISH ALL MEDICINE -- 10/13 completed Not Available Not Available Not Available albuterol sulfate HFA 90 mcg/actua tion aerosol inhaler INHALE ONE PUFF BY MOUTH FOUR TIMES DAILY NEEDED active Not Available Not Available No t Available oxybutyni n chloride 5 mg tablet TAKE ONE (1) TABLET BY MOUTH THREE (3) TIMES A DAY NEEDED. active Not Available Not Available No t Available [place] 5 mg-325 mg tablet Take 1 tablet every 6 hours by oral route. 04/11 completed Not Available Not Available Not Available ondansetr on 4 mg disintegr ating tablet PLACE TWO (2) TABLETS ON TOP OF TONGUE EVERY EIGHT (8) HOURS NEEDED FOR NAUSEA 01/19 completed Not Available Not Available Not Available cefdinir 300 mg capsule TAKE 1 CAPSULE BY MOUTH TWICE DAILY FOR 10 DAYS 01/13 completed Not Available Not Available Not Available fluticaso ne propionat e 50 mcg/actua tion nasal spray,noam pension SQUIRT ONE SPRAY IN EACH NOSTRIL DAILY 04/24 completed Not Available Not Available Not Available spironola ctone 50 mg tablet Take 1 tablet every day by oral route. active Not Available Not Available No t Available Flexeril 10 mg tablet take 1 tablet (10 mg) by oral route 3 times per day prn 04/13 completed Flexeril 10 mg oral tablet;R ecorded Status: Recorded on: 02/04/20 12 2:55PM;D iscontin ued Status: Disconti nued on: 04/13/20 12 9:09AM;U ser: [email or web address];Es t. Completi on: 02/24/20 12;Print ed: 02/04/20 12 Not Available Not Available Not Available oxycodone 5 mg tablet TAKE 1 TABLET BY MOUTH EVERY SIX (6) HOURS NEEDED FOR FOR PAIN FOR UP TO 12 DOSES 10/06 completed Not Available Not Available Not Available neomycin- polymyxin -hydrocor t 3.5 mg-10,000 unit/mL-1 % ear drops,noam p INSTILL 4 DROPS INTO AFFECTED EAR(S) BY OTIC ROUTE 3 TIMES PER DAY 04/24 completed Not Available Not Available Not Available enoxapari n 80 mg/0.8 mL subcutane ous syringe INJECT ONE (1) SYRINGE SUBCUTAN EOUSLY EVERY 12 HOURS FOR FIVE (5) DAYS. DO NOT TAKE THIS WHILE USING ANY OTHER ANTICOAG ULANTS. 10/06 completed Not Available Not Available Not Available azithromy radha 500 mg tablet take 1 tablet (500 mg) by oral route once daily for 10 days 09/21 completed azithrom ycin 500 mg oral tablet;P rescribe Status: Prescrib ed on: 08/31/20 13 3:15PM;D iscontin ued Status: Disconti nued on: 09/21/20 13 2:56PM;U ser: [email or web address] yvette;Est. Completi on: 09/10/20 13;Pharm acyVerif ied: 08/31/20 13 3:15PM Not Available Not Available Not Available Mucinex D 60 mg-600 mg tablet,ex tended release Take 1 tablet twice a day by oral route. 10/06 completed Not Available Not Available Not Available [place] 1 q12h prn pain 09/27 completed norco 5 /325mg;R ecorded Status: Recorded on: 08/28/20 15 1:09PM;U ser: marklindybe yvette;Est. Completi on: 09/27/20 15;Indic ation: - (-5) Not Available Not Available Not Available meloxicam one daily 11/30 completed meloxica m 15 mg.;Milan rded Status: Recorded on: 11/08/19 14 8:28PM;D iscontin ued Status: Disconti nued on: 11/30/19 14 9:55AM;U ser: [email or web address]; Est. Completi on: 01/08/20 14;Indic ation: pain - (-5) Not Available Not Available Not Available Cipro 1 bid 11/03 completed cipro 500 mg;Recor ded Status: Recorded on: 12/10/19 11 2:15PM;D iscontin ued Status: Disconti nued on: 11/03/19 12 9:07AM;U ser: sawyerbe yvette;Est. Completi on: 12/17/19 11;Indic ation: - (-5) Not Available Not Available Not Available azithromy radha 1 qd 09/21 completed azithrom ycin 500mg;Re corded Status: Recorded on: 08/31/20 13 2:42PM;D iscontin ued Status: Disconti nued on: 09/21/20 13 2:56PM;U ser: norma crawford;Est. Completi on: 09/07/20 13;Indic ation: - (-5) Not Available Not Available Not Available Ceclor 1 bid 09/09 completed ceclor 500mg;Re corded Status: Recorded on: 01/03/20 10 2:52PM;D iscontin ued Status: Disconti nued on: 09/09/20 10 3:50PM;U ser: Lexy st. Completi on: 01/23/20 10;Indic ation: - (-5) Not Available Not Available Not Available Ceftin 1 bid 08/28 completed ceftin 500;Milan rded Status: Recorded on: 08/28/20 15 1:09PM;D iscontin ued Status: Disconti nued on: 08/28/20 15 1:27PM;U ser: norma crawford;Est. Completi on: 09/04/20 15;Indic ation: - (-5) Not Available Not Available Not Available Lasix Take 1 tablet by oral route once a day for 90 days 02/15 completed lasix Oral oral 40mg;Rec orded Status: Recorded on: 03/02/20 13 10:20AM; Disconti nued Status: Disconti nued on: 02/16/20 15 10:12AM; User: norma crawford;Est. Completi on: 02/26/20 14;Print ed: 03/03/20 13 Not Available Not Available Not Available meclizine 1 tid prn 11/30 completed meclizin e 25mg;Rec orded Status: Recorded on: 08/31/20 13 2:42PM;D iscontin ued Status: Disconti nued on: 11/30/19 14 9:55AM;U ser: norma crawford;Est. Completi on: 12/30/19 14;Indic ation: - (-5) Not Available Not Available Not Available Adipex-P 1 qam 09/21 completed adipex;R ecorded Status: Recorded on: 11/23/19 13 9:20AM;D iscontin ued Status: Disconti nued on: 09/21/20 13 3:44PM;U ser: norma crawford;Est. Completi on: 12/24/19 13;Indic ation: - (-5) Not Available Not Available Not Available ibuprofen 1 tid 09/09 completed ibuprofe n 600mg;Re corded Status: Recorded on: 09/08/20 08 3:28PM;D iscontin ued Status: Disconti nued on: 09/09/20 10 3:52PM;U ser: norma crawford;Est. Completi on: 09/15/20 08;Indic ation: - (-5);Serena nted: 09/08/20 08 Not Available Not Available Not Available Phenergan 1 tid 10/08 completed phenerga n 25mg;Rec orded Status: Recorded on: 01/12/20 10 2:20PM;D iscontin ued Status: Disconti nued on: 10/08/19 11 2:15PM;U ser: norma crawford;Est. Completi on: 01/19/20 10;Indic ation: - (-5);Serena nted: 01/12/20 10 Not Available Not Available Not Available Keflex 1 bid 10/08 completed keflex 500mg;Re corded Status: Recorded on: 08/23/20 10 8:49AM;D iscontin ued Status: Disconti nued on: 10/08/19 11 2:15PM;U ser: markesbe ryh;Est. Completi on: 09/06/20 10;Indic ation: - (-5);Serena nted: 08/23/20 10 Not Available Not Available Not Available Diovan HCT 1 po qd 11/23 completed Diovan HCT Oral 160 /12.5;Re corded Status: Recorded on: 04/12/20 12 3:31PM;D iscontin ued Status: Disconti nued on: 11/23/19 13 9:20AM;U ser: markesbe ryh;Est. Completi on: 04/07/20 13;Indic ation: None Availabl e - (-5);Serena nted: 04/12/20 12 Not Available Not Available Not Available Percocet 1 tid prn pain 11/03 completed percocet 10mg/325 ;Recorde d Status: Recorded on: 05/19/20 11 4:14PM;D iscontin ued Status: Disconti nued on: 11/03/19 12 9:07AM;U ser: markesbe ryh;Est. Completi on: 06/02/20 11;Indic ation: - (-5) Not Available Not Available Not Available Phenergan DM 1 tsp qid prn 08/28 completed phenerga n dm;Recor ded Status: Recorded on: 08/28/20 15 1:09PM;D iscontin ued Status: Disconti nued on: 08/28/20 15 1:27PM;U ser: markesbe ryh;Est. Completi on: 09/04/20 15;Indic ation: - (-5) Not Available Not Available Not Available Afrin Saline Nasal Mist 1 spray bid 11/23 completed afrine nasal;co mment: deleted; Recorded Status: Recorded on: 11/23/19 13 9:20AM;D iscontin ued Status: Disconti nued on: 11/23/19 13 9:35AM;U ser: markesbe ryh;Est. Completi on: 12/04/19 13;Indic ation: - (-5);Serena nted: 11/23/19 13 Not Available Not Available Not Available Kaon 1 tsp qhs 10/08 completed kaon;Rec orded Status: Recorded on: 09/04/20 10 4:33PM;D iscontin ued Status: Disconti nued on: 10/08/19 11 2:17PM;U ser: markesbe ryh;Est. Completi on: 04/02/20 11;Indic ation: - (-5) Not Available Not Available Not Available Flexeril 1 tid 11/03 completed flexeril 10mg;Rec orded Status: Recorded on: 05/19/20 11 4:14PM;D iscontin ued Status: Disconti nued on: 11/03/19 12 9:07AM;U ser: markesbe ryh;Est. Completi on: 06/02/20 11;Indic ation: - (-5) Not Available Not Available Not Available Prevacid 2 po qd 09/09 completed prevacid 30mg;Rec orded Status: Recorded on: 08/07/20 10 11:39AM; Disconti nued Status: Disconti nued on: 09/09/20 10 3:58PM;U ser: woodst;E st. Completi on: 08/02/20 11;Indic ation: - (-5);Serena nted: 08/07/20 10 Not Available Not Available Not Available Tussionex [place] ic ER 1 tsp q12h 08/31 completed tussinex ;Recorde d Status: Recorded on: 02/02/20 13 9:53AM;D iscontin ued Status: Disconti nued on: 08/31/20 13 2:13PM;U ser: markesbe ryh;Est. Completi on: 02/23/20 13;Indic ation: - (-5) Not Available Not Available Not Available Potassium Chloride ER 1 bid with food 11/08 completed kcl 10meq;Re corded Status: Recorded on: 09/21/20 13 3:33PM;D iscontin ued Status: Disconti nued on: 11/08/19 14 10:06AM; User: norma crawford;Est. Completi on: 10/05/19 14;Indic ation: - (-5) Not Available Not Available Not Available Mucinex D 1 bid 11/03 completed mucinex d;Record ed Status: Recorded on: 10/01/20 11 3:23PM;D iscontin ued Status: Disconti nued on: 11/03/19 12 9:07AM;U ser: norma crawford;Est. Completi on: 10/08/19 12;Indic ation: - (-5);Serena nted: 10/01/20 11 Not Available Not Available Not Available Chantix 1 mg tablet take 1 tablet (1 mg) with a glass of water by oral route 2 times per day after meals for 30 days 05/30 completed Chantix 1 mg oral tablet;P rescribe Status: Prescrib ed on: 08/28/20 15 1:27PM;D iscontin ued Status: Disconti nued on: 05/30/20 16 6:30PM;U ser: [email or web address] yvette;Est. Completi on: 09/27/20 15;Indic ation: Smoking Cessatio n - ([phone] 04);Phar Sebastian fied: 08/28/20 15 1:27PM Not Available Not Available Not Available Symbicort 160 mcg-4.5 mcg/actua tion HFA aerosol inhaler Inhale 2 puffs twice a day by inhalati on route. 02/04 completed Not Available Not Available Not Available FeroSul 325 mg (65 mg iron) tablet 05/31 completed Not Available Not Available Not Available Lantus Solostar U-100 Insulin 100 unit/mL (3 mL) subcutane ous pen INJECT 60 UNITS sub AT BEDTIME 04/11 completed Not Available Not Available Not Available Sarafem 10 mg tablet Take 2 tablet (10 mg) by oral route once a day for 30 days 11/30 completed Sarafem 10 mg oral tablet;R ecorded Status: Recorded on: 12/01/19 13 7:48AM;D iscontin ued Status: Disconti nued on: 11/30/19 14 9:55AM;U ser: norma crawford;Est. Completi on: 01/01/20 13 Not Available Not Available Not Available GaviLyte- G 236 gram-22.7 4 gram-6.74 gram-5.86 gram oral solution 10/13 completed Not Available Not Available Not Available Chantix Starting Month Box 0.5 mg (11)-1 mg (42) tablets in dose pack as directed 04/11 completed Not Available Not Available Not Available Combivent Respimat 20 mcg-100 mcg/actua tion solution for inhalatio n inhale 1 puff by inhalati on route 4 times per day ; may take addition al puffs as needed not to exceed 6 puffs in 24hrs for 30 days 11/26 completed Combiven t Respimat 20-100 mcg/actu ation inhalati on mist;Pre scribe Status: Prescrib ed on: 08/28/20 15 1:27PM;U ser: norma crawford;Est. Completi on: 11/26/19 16;Pharm acyVerif ied: 08/28/20 15 1:27PM Not Available Not Available Not Available Vicodin 5 mg-300 mg tablet take 1 tablet by oral route every 6 hours as needed for pain for 30 days 02/15 completed Vicodin 5-300 mg oral tablet;R ecorded Status: Recorded on: 08/07/20 14 9:27AM;D iscontin ued Status: Disconti nued on: 02/16/20 15 10:12AM; User: norma crawford;Est. Completi on: 09/06/20 14;Indic ation: Pain - ([id number] 00) Not Available Not Available Not Available Eliquis 5 mg tablet TAKE 1 TABLET BY MOUTH TWICE DAILY FOR BLOOD THINNER; ATRIAL FIB. active Not Available Not Available No t Available Victoza 3-Hunter 0.6 mg/0.1 mL (18 mg/3 mL) subcutane ous pen injector INJECT 0.6MG SUBCUTAN EOUSLY EVERY DAY FOR ONE (1) WEEK THEN 1.2MG SUBCUTAN EOUSLY EVERY DAY THEREAFT ER 04/24 completed Not Available Not Available Not Available Anoro Ellipta 62.5 mcg-25 mcg/actua tion powder for inhalatio n Inhale 1 puff every day by inhalati on route. 04/11 completed Not Available Not Available Not Available Trulicity 0.75 mg/0.5 mL subcutane ous pen injector INJECT 0.75 MG EVERY WEEK BY SUBCUTAN EOUS ROUTE. active Not Available Not Available No t Available Easy Comfort Pen [place] 31 gauge x 1/4 USE DAILY with insulin injectio ns active Not Available Not Available No t Available TechLITE Pen Needle 32 gauge x 5/32 DIRECTED WITH VICTOZA EVERY DAY active Not Available Not Available No t Available Accu-Chek Guide test strips USE DIRECTED active Not Available Not Available No t Available Accu-Chek Guide Glucose Meter USE DIRECTED active Not Available Not Available No t Available Fiasp U-100 Insulin 100 unit/mL subcutane ous solution INJECT 80 UNITS SUBCUTAN EOUSLY EVERY DAY PER OMNIPOD DIRECTED (PER OMNIPOD MAX OF 80 UNITS PER DAY) active Not Available Not Available No t Available Ozempic 0.25 mg or 0.5 mg (2 mg/1.5 mL) subcutane ous pen injector Inject 0.5 mg every week by subcutan eous route. 02/03 completed Not Available Not Available Not Available Flucelvax Quad 7878-2026 (PF) 60 mcg (15 mcg x 4)/0.5 mL IM syringe 04/11 completed Not Available Not Available Not Available Omnipod Dash Pods (Gen 4) subcutane ous cartridge CHANGE POD EVERY 2 TO 3 DAYS DIRECTED active Not Available Not Available No t Available FreeStyle Diana 2 Sensor kit DIRECTED CHANGING EVERY 14 DAYS active Not Available Not Available No t Available FreeStyle Diana 2 [place] USE DIRECTED active Not Available Not Available No t Available red beet 250 mg-sour turner extract 0.5 mg chewable tablet Take 1 tablet every day by oral route. 10/06 completed Not Available Not Available Not Available FreeStOptensity Diana 3 Plus Sensor device USE DIRECTED 01/13 completed Not Available Not Available Not Available Vitals Date Recorded Body height Body mass index (BMI) Body weight Heart rate Body temperature Respiratory rate Oxygen saturation Oxygen saturation in Arterial blood by Pulse oximetry Systolic blood pressure Diastolic blood pressure Provider Name and Address Organization Details Last Updated DateTime 5 157.48 cm 42.3 kg/m2 646869. 84 g 70 /min 97.9 [degF] 18 /min 93 % 93 % 124 mm[Hg] 78 mm[Hg] Magaly Stears [place] - [facility] 5 10:36:07 Date Recorded Body height Respiratory rate Body mass index (BMI) Body weight Body temperature Heart rate Oxygen saturation Oxygen saturation in Arterial blood by Pulse oximetry Systolic blood pressure Diastolic blood pressure Provider Name and Address Organization Details Last Updated DateTime 5 157.48 cm 18 /min 41.3 kg/m2 320689. 88 g 98.9 [degF] 66 /min 93 % 93 % 120 mm[Hg] 80 mm[Hg] Magaly Stears [place] - [facility] 5 15:29:09 Date Recorded Body height Body mass index (BMI) Body weight Body temperature Heart rate Oxygen saturation Oxygen saturation in Arterial blood by Pulse oximetry Respiratory rate Systolic blood pressure Diastolic blood pressure Provider Name and Address Organization Details Last Updated DateTime 5 157.48 cm 41.2 kg/m2 467325. 28 g 98.2 [degF] 89 /min 93 % 93 % 18 /min 122 mm[Hg] 74 mm[Hg] Flower Sol [place] - [facility] 5 14:05:35 Date Recorded Body height Body mass index (BMI) Body weight Heart rate Respiratory rate Oxygen saturation Oxygen saturation in Arterial blood by Pulse oximetry Body temperature Systolic blood pressure Diastolic blood pressure Provider Name and Address Organization Details Last Updated DateTime 4 157.48 cm 41.5 kg/m2 016484. 47 g 68 /min 18 /min 94 % 94 % 97.7 [degF] 118 mm[Hg] 74 mm[Hg] Magaly Stears [place] - [facility] 4 13:39:10 Date Recorded Body height Body mass index (BMI) Body weight Body temperature Heart rate Oxygen saturation Oxygen saturation in Arterial blood by Pulse oximetry Respiratory rate Systolic blood pressure Diastolic blood pressure Provider Name and Address Organization Details Last Updated DateTime 3 157.48 cm 42.3 kg/m2 527841. 94 g 98.1 [degF] 79 /min 98 % 98 % 18 /min 122 mm[Hg] 70 mm[Hg] Flower Sweta [place] - [facility] 3 15:28:31 Social History Question Answer Notes LastModified by 80/20 Solutions[employer] ion Details LastModified Time Tobacco Smoking Status Former Smoker Magaly Valles jase [place] - [facility] 04/11/2022 16:07:03 Do You Have An Advance Directive? No Information not available 04/11/2022 Are You Blind Or Do You Have Difficulty Seeing? No [email or web address] Information not available 02/11/2018 What Is Your Level Of Caffeine Consumption? Moderate Information not available 01/19/2025 How Much Tobacco Do You Chew? None Information not available 02/11/2018 Are You Deaf Or Do You Have Serious Difficulty Hearing? No [email or web address] Information not available 02/11/2018 What Type Of Diet Are You Following? DIABETIC Information not available 01/19/2025 Which Illicit Or Recreational Drugs Have You Used? None Information not available 02/11/2018 What Is The Highest Grade Or Level Of School You Have Completed Or The Highest Degree You Have Received? [id number] Information not available 04/11/2022 How Many Days Of Moderate To Strenuous Exercise, Like A Brisk Walk, Did You Do In The Last 7 Days? 1 [email or web address] Information not available 02/11/2018 On Those Days That You Engage In Moderate To Strenuous Exercise, How Many Minutes, On Average, Do You Exercise? 1 [email or web address] Information not available 02/11/2018 Have There Been Any Changes To Your Family Or Social Situation? No Information not available 04/11/2022 How Hard Is It For You To Pay For The Very Basics Like Food, Housing, Medical Care, And Heating? [id number] Information not available 02/11/2018 What Is The Fluoride Status Of Your Home? Unknown Information not available 04/11/2022 When Did You Quit Smoking? 6-10yearssin celastcigare tte Information not available 01/19/2025 Hard Of Hearing Or Deaf In One Or Both Ears? No [email or web address] Information not available 02/04/2018 Legally Blind In One Or Both Eyes? No [email or web address] Information not available 02/04/2018 Live Alone Or With Others? With Others [email or web address] Information not available 02/04/2018 Do You Have A Medical Power Of Mental Health Counselor? No Information not available 04/11/2022 What Was The Date Of Your Most Recent Tobacco Screening? 01/19/2025 Information not available 01/19/2025 How Many Children Do You Have? 2 Twins- Lost 1 In 2018 Information not available 04/11/2022 What Is Your Current Pack Years? 30ormorepack years Information not available 05/31/2024 Do You Use Protection Against STDs? No Information not available 01/19/2025 What Is Your Relationship Status? Information not available 12/01/2018 Do You Use Your Seat Belt Or Car Seat Routinely? Yes Information not available 01/19/2025 Seat Belts Used Routinely Yes [email or web address] Information not available 02/11/2018 Are You Sexually Active? No Information not available 01/19/2025 Smoke Alarm In Home Yes [email or web address] Information not available 02/04/2018 Do You Have Smoke And Carbon Monoxide Detectors In Your Home? No Information not available 01/19/2025 At What Age Did You Start Smoking Tobacco? 16 Information not available 01/19/2025 Are You Passively Exposed To Smoke? No Information not available 01/19/2025 How Much Tobacco Do You Smoke? No Information not available 04/11/2022 Do You Use Sunscreen Routinely? No Information not available 04/11/2022 Has Tobacco Cessation Counseling Been Provided? Yes [email or web address] Information not available 02/11/2018 On What Date Was Tobacco Cessation Counseling Provided? 12/01/2018 [email or web address] Information not available 12/01/2018 How Many Years Have You Smoked Tobacco? 44 Stopped In 2019 Information not available 05/31/2024 Do You Have Difficulty Walking Or Climbing Stairs? No [email or web address] Information not available 02/11/2018 Sex: Female Functional Status Question Answer Note LastModified by Organizat ion Details LastModified Time Do you use any illicit or recreational drugs? No Information not available 04/11/2022 Do you or have you ever used any other forms of tobacco or nicotine? No Information not available 04/11/2022 What is your level of alcohol consumption? Occasional Information not available 01/19/2025 Do you or have you ever used smokeless tobacco? Never used smokeless tobacco Information not available 01/19/2025 Are you currently employed? No Information not available 04/11/2022 Do you have transportation difficulties? No Information not available 04/11/2022 Are you able to walk? YESWOREST [email or web address] Information not available 02/11/2018 Do you have difficulty doing errands alone? No Information not available 02/11/2018 Are you able to care for yourself? Yes Information n ot available 02/04/2018 Do you have difficulty dressing or bathing? No Information not available 02/11/2018 Do you or have you ever used e-cigarettes or vape? Former user of electronic cigarettes Information not available 01/19/2025 What is your exercise level? None [email or web address] Information not available 02/11/2018 Mental Status Question Answer Note LastModified by Organizat ion Details LastModified Time Do you feel stressed (tense, restless, nervous, or anxious, or unable to sleep at night)? [id number] Information not available 01/19/2025 Do you have difficulty concentrating, remembering or making decisions? No [email or web address] Information no t available 02/11/2018 Family History Relationship Description Onset Age of this Age Resolved Age Notes LastModified by Organization Details LastModified Time Paternal Aunt Family history of breast cancer [email or web address] Not available 2024 13:52:05 Father Family history of cancer of colon cbuckler Not available 2024 13:52:05 Father Harmful pattern of use of alcohol cbuckler Not available 2024 13:52:05 Father Malignant tumor of colon cbuckler Not available 2024 13:52:05 Father Hypertensive disorder cbuckler Not available 2024 13:52:05 Paternal Grandmother Family history of cancer of colon cbuckler Not available 2024 13:52:05 Paternal Uncle Obesity cbuckler Not available 13:52:05 Daughter Substance abuse cbuckler Not available 2024 13:52:05 Unspecified Relation Hypercholest erolemia cbuckler Not available 2024 13:52:05 Unspecified Relation Malignant neoplasm of lung cbuckler Not available 2024 13:52:05 Unspecified Relation Substance abuse cbuckler Not available 2024 13:52:05 Mother Malignant tumor of breast cbuckler Not available 2024 13:52:05 Mother Heart disease cbuckler Not available 2024 13:52:05 Maternal Aunt Depressive disorder cbuckler Not available 2024 13:52:05 Maternal Grandmother Cerebrovascu lar accident cbuckler Not available 13:52:05 Maternal Grandmother Arthritis cbuckler Not available 13:52:05 Maternal Grandmother Obesity cbuckler Not available 01/19 13:52:05 Maternal Grandmother Diabetes mellitus cbuckler Not available 2024 13:52:05 Paternal Grandfather Blood coagulation disorder cbuckler Not available 2024 13:52:05 Medical History Condition Response Lung Disease Y COPD Y Muscle, Joint, or Bone Problems Y Obesity Y Vision or Eye Problems Y Arthritis Y Acid Reflux (GERD) Y Cancer Y Stroke Y Blood clot Y Headaches Y Irritable Bowel Syndrome Y Ear or Hearing Problems Y Kidney or Bladder Problems Y Anemia Y Constipation Y Abnormal PAP Y Diabetes Y Degenerative Disc Disease Y Insomnia Y Hypertension Y Gynecological History Statement/Question Response Date of Last Colonoscopy Date of Last Mammogram 04/26/2024 Most Recent Bone Density Menses Monthly N Date of Last Pap Smear 02/15/2015 Current Control Method Tubal Ligat ion LMP Unknown Obstetrics History GPAL:G 1 P 1 0 0 1 Type Value Full Term 1 Living 1 Total 1 Immunizations Vaccine Type Date Status Note Provider Nam e and Address Organization Details Recorded Time Influenza, high-dose, trivalent, PF 4 completed Magaly Stears null, [place] - [facility] 10/06/2024 10:25:47 influenza, unspecified formulation 8 completed Flower Sweta null, [place] - [facility] 09/11/2023 15:28:59 influenza, unspecified formulation 0 completed Flower Sweta null, [place] - [facility] 09/11/2023 15:28:59 Tdap 5 completed Flower Sweta null, [place] - [facility] 01/19/2025 16:50:14 Td (adult), 2 Lf tetanus toxoid, preservative free, adsorbed 3 completed Magaly Stears null, [place] - [facility] 10/13/2022 11:30:52 Influenza, split virus, quadrivalent, PF 1 completed Magaly Stears [place] [facility] 10/13/2022 11:30:52 pneumococcal polysaccharide PPV23 1 completed Magaly Stears [place] - [facility] 10/13/2022 11:30:52 Influenza, high-dose, quadrivalent, PF 3 completed Flower Sweta null, [place] - [facility] 09/11/2023 15:28:59 Past Encounters Encounter ID Performer Location Encounter Start Date Encounter Closed Date Diagnosis/Indication Diagnosis SNOMED-CT Code Diagnosis ICD10 Code Diagnosis Note [id number] Chava Beach MD [facility] [address] [place] [address] 07/28/2016 12:40:42 07/28/2016 15:32:09 Asthma 412207812 J45.909 Acute bronchitis 1044794 2 J20.9 Anxiety 95572557 F41.9 Chronic back pain 626628 002 G89.29 [id number] Chava Beach MD [facility] [address] [place] [address] 09/24/2016 10:22:46 09/24/2016 11:24:36 Gastroesophageal reflux disease 894768125 K21.9 Chronic ob structive pulmonary disease 31740842 J44.9 Acute bronchitis 8981659 2 J20.9 Abdominal pain 19357646 R10.9 Cough 47198288 R05 [id number] Chava Beach MD [address] [place] [address] 01/20/2018 14:22:17 01/20/2018 15:45:08 Chronic obstructive pulmonary disease 07726685 J44.9 Generalized headache 162 813654 R51 Gastroesop hageal reflux disease 233384229 K21.9 Essential hypertension 01028447 I10 Asthma 533269477 J45.90 9 Low back pain 479491520 M54.5 [id number] Dari Adam APRN [address] [place] [address] 02/04/2018 14:23:31 02/04/2018 16:39:19 Body mass index 30+ - obesity 311420621 Z68.38 Cough 93304660 R05 Hyperglycemia 69832839 R 73.9 Dizziness 610113543 R42 Fatigue 72519768 R53.83 Viral screening 09324683 4 Z11.59 Smoker 53755001 F17.534 [id number] Chava Beach MD [address] [place] [address] 02/09/2018 11:01:25 02/09/2018 12:47:16 Upper respiratory infection 24779907 J06.9 Cough 91145255 R05 Chronic ob structive pulmonary disease 00546225 J44.0 Dyspnea 754310751 R06.02 Decreased breath sounds 64762471 R09.89 [id number] Chava Beach MD [address] [place] [address] 02/16/2018 12:55:09 02/16/2018 14:04:12 Chronic obstructive pulmonary disease 98842434 J44.0 Bronchitis 21066236 J40 [id number] Chava Beach MD [address] [place] [address] 10/06/2018 14:43:16 10/06/2018 16:28:13 Chronic obstructive pulmonary disease 81187682 J44.0 Edema 797526479 R60.9 Upper resp iratory infection 88794100 J06.9 Harsh breath sounds 4765 3008 R09.89 [id number] Cahva Beach MD [facility] [address] [place], [place] [address] [place] [address] 10/13/2018 08:34:14 10/13/2018 10:17:51 Chronic obstructive pulmonary disease 41742982 J44.0 Generalized headache 162 356589 R51 Gastroesop hageal reflux disease 192663164 K21.9 Essential hypertension 19519408 I10 Anxiety 88289008 F41.9 [id number] Chava Beach MD [facility] [address] [place], [place] [address] [place] [address] 12/01/2018 10:02:07 12/01/2018 11:51:11 Chronic obstructive pulmonary disease 37923458 J44.0 Injury of tendon of the rotator cuff of shoulder 370346388 S46.001A Upper resp iratory infection 00313079 J06.9 Dizziness 916495606 R42 Arthritis 5739888 M19.90 Trying to give up smoking 079319837 Z72.0 [id number] Adam Bo APRN [address] [address] 04/11/2022 15:37:57 05/26/2022 14:09:55 Chronic obstructive pulmonary disease 58642515 J44.0 continue meds Essential hypertension 49148086 I10 continue plan of care Gastroesop hageal reflux disease 108602180 K21.9 continue plan of care Generalized headache 162 462881 R51.9 History of cerebrovascular accident without residual deficits 362830945 Z86.73 History of malignant neoplasm of lung 846936675 Z85.118 keep follow up appointmen ts with pulmonolog y Hypercholesterolemia 136 07524 E78.00 labs Diabetes mellitus 143903 09 E11.9 gave sample of diana will call pharm to check pricing on meds,Levy ll, pt doing well at this time. This has remained stable since previous visit. Pt is due for Diabetic labs at today's visit. Pt will need repeat A1c today. Discussed routine diabetic follow up in 3 months and pt is agreeable. Pt counseled on diet and weight management at today's visit. Pt will try to comply with ADA guidelines in regards to diet and increase daily activity as tolerated. Call or RTC sooner than follow up should any questions or concerns arise. Seasonal allergy 3649446 04 J30.2 [id number] Adam Bo [address] [address] 10/13/2022 11:15:48 10/13/2022 12:38:10 Type 2 diabetes mellitus 85057621 E11.9 Essential hypertension 46667434 I10 continue plan of care Hypercholesterolemia 136 81499 E78.00 labs Chronic ob structive pulmonary disease 42143405 J44.0 continue meds Gastroesop hageal reflux disease 398634952 K21.9 continue plan of care Bilateral cramp of muscle of lower limbs 2774902309 2782215 R25.2 History of cerebrovascular accident without residual deficits 030299118 Z86.73 History of malignant neoplasm of lung 183061051 Z85.118 keep follow up appointmen ts with pulmonolog y Anxiety 62847482 F41.9 [id number] Adam Bo [address] [address] 10/21/2022 15:56:18 10/21/2022 16:25:05 Anemia 739625672 D64.9 check labs, pt refused stool. will think about colonoscop ydiscussed the importance of having a colonoscop y with pt [id number] Adam Bo [employer] [address] [address] 12/02/2022 11:14:57 12/02/2022 11:41:22 Acute right otitis media 514870207 H66.91 stop cefdinir start amoxicilli n Acute otitis externa 302 91848 H60.618 [id number] Adam oB [address] [address] 04/24/2023 15:53:16 04/24/2023 16:53:20 Type 2 diabetes mellitus 55789449 E11.9 forms filled out and given back to pt [id number] Adam Bo [address] [address] 09/11/2023 15:16:01 09/11/2023 15:50:13 Type 2 diabetes mellitus 50657271 E11.9 forms filled out and given back to ptobtain labs from pcp [id number] Francateetee vi [address] [address] 05/31/2024 13:26:44 05/31/2024 14:30:51 Type 2 diabetes mellitus 18429676 E11.9 continue meds and dietwill add trulicity Essential hypertension 59705168 I10 continue plan of care Body mass index 30+ - obesity 018634030 Z68.41 41.5 Obesity 890615087 E66.9 Osteoporos is screening declined 6744287461 48830 Z53.20 Headache 74685561 R51.9 return if symptoms worsen or do not improve [id number] Carolinafermin Bo [address] [address] 10/06/2024 10:23:27 10/06/2024 12:04:53 Type 2 diabetes mellitus 94579632 E11.9 continue meds and diethold trulicity until ok with urology Essential hypertension 03430990 I10 continue plan of care Hypercholesterolemia 136 33041 E78.00 labs [id number] Carolinafermin Bo [address] [address] 01/13/2025 14:57:10 01/13/2025 16:00:14 Type 2 diabetes mellitus 52310183 E11.9 continue meds and diet Biomedical equipment procedure 175507603 Z46.81 [id number] Francateetee [address] [address] 01/19/2025 13:45:16 01/19/2025 15:14:08 Adult health examination 082654448 Z00.00 Depression screening 171 679046 Z13.31 A depression screening was completed via a standardiz ed screening tool. 5 minutes were spent discussing depression screening results and risk factors. Examinatio n of blood pressure 342750985 Z01.30 Diet education 85983336 Z71.3 Counseling 376549501 Z71 .82 Exercise counseling . Patient encouraged to exercise 30 minutes 5 days a week. At [facility] ed risk for falls 468204459 Z91.81 STEADI FAST screening score of __0___. Advance care planning 71 4799855 Z71.89 Screening for osteoporosis 503011603 Z13.820 Medication declined 4061 09563 Z28.21 Essential hypertension 36408079 I10 continue plan of care History of cerebrovascular accident without residual deficits 885675228 Z86.73 Hypercholesterolemia 136 27214 E78.00 labs Type 2 shelton betes mellitus 68569677 E11.9 continue meds and diet Malignant neoplasm of urinary bladder 896837741 C67.9 Health Concerns Section Related Observation LastModified by Organization Detai ls LastModified Time None Recorded Concern Status LastModified by Organization Details LastModified Time None Recorded Advance Directives Directive N: Payers Insurance Date Sequence Insurance Name Policy Number Policy Mercado Covered Member ID Mercado Member ID Guarantor Name 01/13/2025 1 [employer] (MEDICARE REPLACEMENT/A DVANTAGE - PPO) Erin Jung DCHYES DCHYES Erin Jung 04/11/2022 1 [id number] [id number] Erin Kirstie Jung [id number] Erin Jung 05/31/2024 1 [employer] (MEDICARE REPLACEMENT/A DVANTAGE - PPO) Erin Jung [id number] Erin Jung 10/06/2024 1 [employer] [place] (MEDICARE REPLACEMENT/A DVANTAGE - HMO) Erin Jung [id number] Erin Jung 01/19/2025 1 [employer] - [place] (MEDICARE REPLACEMENT/A DVANTAGE - HMO) Erin Jung [id number] Erin Jung 01/19/2025 [place] Erin Jung [id number] Erin Jung 01/19/2025 1 [employer] (MEDICARE SUPPLEMENT) Erin Jung [id number] Erin Jung 04/02/2022 1 [facility] [id number] Erin Jung [id number] Erin Kirstie Erich Notes Date Note Type Note Provider Name and Address Organization Details Recorded Time 09/11/2023 text/html 67 yr old female presents for a follow up on ozempic. pt states she is doing well and seen her pcp yesterday to have labs. pt comes here for dm consult for med adjustments Adam Bo, FABIÁN [address], [place], [address], [place] - [facility] 09/11/2023 15:47:10 05/31/2024 text/html 68 year old roel hilliard who presents to the office today for a follow up ontype 2 diabetes and labs. pt states she uses omnipod and tolerating it well but had to stop her ozempic due to costhas concerns of headache- states has not had any sleep due to being taken by ambulance to last night, pt states once she gets back home she will lap and she should start feeling better. Adam BarlowFABIÁN lebron [address], [place], [address], [place] - [facility] 05/31/2024 14:50:14 10/06/2024 text/html 69 year old roel hilliard who presents to the office today for adiabetic follow up for her CGM supplies. pt states she needs labs and cgm refills. pt states the cgm is working well. Adam BoFABIÁN [address], [place], [address], [place] - [facility] 10/06/2024 14:01:42 01/13/2025 text/html 69 year old roel hilliard who presents to the office today for a follow up on diabetes has concerns of low blood sugar with freestyle diana 3,pt called yesterday and requested freestyle diana 2 to be refilled.pt has not started Trulicity as of todaypt states at night her glucose is dropping into the 50's Adam BarlowFABIÁN lebron [address], [place], [address], [place] - [facility] 01/13/2025 15:54:46 01/19/2025 text/html 69 yr old female presents for a Medicare annual wellness exam. pt states she is having resection on tues due to bladder tumors. needs labs for chronic dx such as dm,lipids,copd,cva , bladder ca,lung ca Adam Bo, IMP[employer] SPECIALIST [address], [place], [address], [place] - [facility] 03/07/2025 10:27:19 OBGyn Episode No OBEpisode recorded.
--- OUTSIDE RECORDS SUMMARY | 2025-03-16 15:04 | XMS_ITS | Encounter Summary ---
Author Organization [facility] Address [address] [place] [id number] Care Team Providers Care Zigzagger Name Role Phone Orlando Zhang MD Primary Care Provider [phone] Source Comments This information has been disclosed [...] release of HIV test results or diagnoses. [id number] Encounter Details Date Type Department Care Team (Latest Contact Info) Description 01/24/2025 Travel Social History Tobacco Use Types Packs/Day Years Used Date Smoking Tobacco: Former Cigarettes 1 47 Smokeless Tobacco: Never Comments:currently 1ppd, on 2018 Alcohol Use Standard Drinks/Week Comments No 0 (1 standard drink = 0.6 oz pur e alcohol) Utilities Answer Date Recorded In the past 12 months has [employer], oil, or water [employer] threatened to shut off services in your [...] any time in the past 12 m [facility], were you homeless or living in a nursing home (including now)? No 01/24/2025 Comments No Sex and Gender Information Value Date Recorded Sex Assigned at Not on file Legal Sex Female 7:42 PM EST Gender Identity Not on file Sexual Orientation Not on file documented as of this encounter Functional Status * Audit-C Score Answer Date of Assessment Author 0 01/24/2025 7:41 PM Alejandra Kulkarni RN * Question Answer Date of Assessment Author Q1: How often do you have a drink containing alcohol? Never 01/24/2025 7:41 PM Ok Kulkarni R N Q2: How many drinks containing alcohol do you have on a typical day when you are drinking? Patient does not drink 01/24/2025 7:41 PM Ok Kulkarni, RN Q3: How often do you have six or more drinks on one occasion? Never 01/24/2025 7:41 PM Ok Kulkarni R N documented as of this encounter Plan of Treatment Not on file documented as of this encounter Visit Diagnoses Not on filedocumented in this encounter Care Teams Zigzagger Relationship Specialty Start Date End Date Orlando Zhang MD [address] [place] [address] PCP - General Family Medicine 03/01/19 documented as of this encounter
--- OUTSIDE RECORDS SUMMARY | 2025-03-16 15:04 | XMS_ITS | Continuity of Care Document ---
Author Organization ANNIKA - Martha Brunner [facility] Address [address] [facility] [place] [address] Care Team Providers Care Control Clerk Auditing Name Role Phone FRANCA GLASGOWBoubacar Primary Care Provider Unavailabl e Assessment Encounter [...] Details Last Modified Time Details Appointments None recorded . Lab HbA1c (hemoglo bin A1c), blood 025 01/20/20 25 ALBIN [facility], [address], [address], [place], [address], 5 13:10:56 microalb umin/cre atinine, mass ratio, urine 025 01/20/20 25 ALBIN [facility], [address], [address], [place], [address], 5 13:10:56 lipid panel, serum 025 01/20/20 25 ALBIN [facility], [address], [address], [place], [address], 5 13:10:56 CMP, serum or plasma 025 01/20/20 ALBIN [facility], [address], [address], [place], [address], 5 13:10:55 CBC w/ auto diff 025 01/20/20 ALBIN [facility], [address], [address], [place], [address], 13:10:55 Referral None recorded . Procedures None recorded . Surgeries None recorded . Imaging None recorded . Medication Orders None recorded . Patient TargetsNo targets recorded. Patient Instructions Encounter Date Encounter Id Patient Instructions Last Modified By Organization Details Last Modified Time 01/19/2025 [id number] advance directives: care instructions efryman Not available 01/19/2025 14:48:41 learning about depression efryman Not available 01/19/2025 14:48:41 preventing falls : care instructions efryman Not available 01/19/2025 14:48:40 medicare preventive services guide efryman Not available 01/19/2025 14:48:41 Reason for Referral None Reported. Problems Name Problem SNOMED Code Status Onset Date Resolution Date Notes Provider Name and Address Organization Details Recorded Time Type 2 diabetes mellitus 44146962 Active 2021 Adam Glasgow APRN [address], [place], [address], [place] - [facility] 2 16:15:36 History of cerebrovascu lar accident without residual deficits 232175157 Active Adam Glasgow, [employer] [address], [place], [address], [place] [facility] 2 16:15:31 Hypercholest erolemia 93819028 Active 2021 Adam Glasgow, [employer] [address], [place], [address], [place] [facility] 2 16:16:05 History of malignant neoplasm of lung 223078638 Active 2021 removed right lower lung Magaly [place] [facility] 4 13:50:05 Generalized headache 037500471 Active Chava [place] [facility] 6 15:57:11 Gastroesopha geal reflux disease 418591203 Active Chava [place] [facility] 6 15:57:24 Chronic obstructive pulmonary disease 37717465 Active Chava [place] [facility] 6 15:57:37 Essential hypertension 20338185 Active Chava Ratliff y [place] - [facility] 6 15:57:53 Malignant neoplasm of urinary bladder 229435187 Active 2024 Adam Glasgow, [employer] [address], [place], [address], [place] [facility] 5 11:44:37 Problem Notes None recorded. Procedures Surgical History Date Name Laterality Status Provider Name and Address Organization Details Recorded Time 01/20/20 25 Advance Care Planning completed [place] [facility] 01/19/2025 13:51:35 01/20/20 25 Functional Status Assessed completed [place] [facility] 01/19/2025 13:51:35 04/26/20 24 Date of Last Mammogram completed Magaly Valles [place] [facility] 10/06/2024 10:40:53 04/11/20 19 Cancer Surgery completed [place] [facility] 01/19/2025 13:52:29 04/11/20 19 lobectomy of lung completed Shakira Grimes [place] [facility] 04/18/2019 12:56:00 12/01/19 19 Joint Injection completed Kerline Odell [place] [facility] 12/01/2018 14:12:48 10/13/19 19 Systolic B/P less than 130 mm Hg completed Marah [place]bl[place] [facility] 10/13/2018 08:53:26 10/13/19 19 Diastolic B/P less than 80 mm Hg completed Marah [place]bl[place] [facility] 10/13/2018 08:53:28 10/06/19 19 Systolic B/P less than 130 mm Hg completed Marah [place]bl[place] [facility] 10/07/2018 15:28:11 10/06/19 19 Diastolic B/P less than 80 mm Hg completed [place] [facility] 10/07/2018 15:28:14 02/16/20 15 Date of Last Pap Smear completed [place] - [facility] 09/23/2016 15:47:00 02/02/19 88 Tubal Ligation [place] [facility] 01/19/2025 13:52:29 10/05/18 70 Tonsillectomy [place] [facility] 01/19/2025 13:52:29 procedure on urinary bladder completed Magaly [place] [facility] 10/06/2024 10:40:18 Breast Biopsy completed [place] [facility] 09/23/2016 15:53:29 Cholecystectomy, laparoscopic completed [place] [facility] 09/23/2016 15:53:41 Colposcopy completed [place] [facility] 09/23/2016 15:54:18 Endometrial Biopsy completed [place] [facility] 09/23/2016 15:54:41 Unlisted procedure stomach completed [place] [facility] 09/23/2016 15:54:55 Tonsillectomy completed [place] [facility] 09/23/2016 15:55:10 Tubal Ligation completed [place] [facility] 09/23/2016 15:55:22 Imaging Results None recorded. Procedure [...] Prescrib ed on: 01/24/20 14 10:22AM; User: irene Not Available Not Available Not Available Augmentin 875 mg-125 mg tablet take 1 tablet by oral route BID for 20 days 11/03 completed Augmenti n 875-125 mg oral tablet;R ecorded Status: Recorded on: 10/01/20 11 3:23PM;D iscontin ued Status: Disconti nued on: 11/03/19 12 9:07AM;U ser: [email or web address] crawford;Est. Completi on: 10/21/19 12;Print ed: 10/01/20 11 [...] route daily for 90 days 03/31 completed potenrriqueu m chloride 10 mEq oral capsule, extended release; Prescrib e Status: Prescrib ed on: 04/24/20 14 3:55PM;U ser: irene;E st. Completi on: 03/31/20 15;Pharm acyVerif ied: [...] 14;Indic ation: Seborrhe ic Dermatit is - (86.8545 00) Not Available Not Available Not Available benzonata [...] 11 2:15PM;U ser: markesbe ryh;Est. Completi on: 09/15/20 08;Indic ation: - (-5);Serena [...] Completi on: 06/27/20 09;Indic ation: Cough - (16.7862 00) Not Available Not Available Not Available senna [...] User: [email or web address] crawford;Est. Completi on: 01/05/20 15;Pharm acyVerif ied: 08/07/20 14 10:35AM Not Available Not [...] mg tablets in a dose pack TAKE ACCORDIN G TO PACKAGE INSTRUCT IONS --TAKE WITH FOOD-- [...] Not Available Not Available No t Available Beaman 5 mg-325 mg tablet Take 1 tablet [...] Disconti nued on: 09/21/20 13 2:56PM;U ser: [email or web address] crawford;Est. Completi on: 09/10/20 13;Pharm acyVerif ied: 08/31/20 13 3:15PM Not Available Not Available Not Available Mucinex D 60 mg-600 mg tablet,ex tended release Take 1 tablet twice a day by oral route. 10/06 completed Not Available Not Available Not Available Beaman 1 q12h prn pain 09/27 completed norco 5 /325mg;R ecorded Status: Recorded on: 08/28/20 15 1:09PM;U ser: [email or web address] ryh;Est. Completi on: 09/27/20 15;Indic ation: - (-5) [...] 12 9:07AM;U ser: markesbe ryh;Est. Completi on: 12/17/19 11;Indic ation: - (-5) Not Available Not Available Not Available azithromy radha 1 qd 09/21 completed azithrom ycin 500mg;Re corded Status: Recorded on: 08/31/20 13 2:42PM;D iscontin ued Status: Disconti nued on: 09/21/20 13 2:56PM;U ser: [email or web address] ryh;Est. Completi on: 09/07/20 13;Indic ation: - (-5) Not Available Not Available Not Available Ceclor 1 bid 09/09 completed ceclor 500mg;Re corded Status: Recorded on: 01/03/20 10 2:52PM;D iscontin ued Status: Disconti nued on: 09/09/20 10 3:50PM;U ser: [email or web address];E st. Completi on: 01/23/20 10;Indic ation: - [...] Disconti nued on: 09/09/20 10 3:52PM;U ser: markesbe ryh;Est. Completi on: 09/15/20 08;Indic ation: - (-5);Serena nted: 09/08/20 08 Not Available Not Available Not Available Phenergan 1 tid 10/08 completed phenerga n 25mg;Rec orded Status: Recorded on: 01/12/20 10 2:20PM;D iscontin ued Status: Disconti nued on: 10/08/19 11 2:15PM;U ser: [email or web address] ryh;Est. Completi on: 01/19/20 10;Indic ation: - (-5);Serena [...] Disconti nued on: 11/23/19 13 9:35AM;U ser: sawyerbe ryh;Est. Completi on: 12/04/19 13;Indic ation: - (-5);Serena nted: 11/23/19 13 Not Available Not Available Not Available Kaon 1 tsp qhs 10/08 completed kaon;Rec orded Status: Recorded on: 09/04/20 10 4:33PM;D iscontin ued Status: Disconti nued on: 10/08/19 11 2:17PM;U ser: [email or web address] ryh;Est. Completi on: 04/02/20 11;Indic ation: - [...] Disconti nued on: 08/31/20 13 2:13PM;U ser: sawyerbe yvette;Est. Completi on: 02/23/20 13;Indic ation: - (-5) [...] 12 9:07AM;U ser: sawyerbe yvette;Est. Completi on: 10/08/19 12;Indic ation: - (-5);Serena [...] Disconti nued on: 05/30/20 16 6:30PM;U ser: sawyerbe ryalex;Est. Completi on: 09/27/20 15;Indic ation: Smoking Cessatio [...] Prescrib ed on: 08/28/20 15 1:27PM;U ser: sawyerbe yvette;Est. Completi on: 11/26/19 16;Pharm acyVerif ied: 08/28/20 15 1:27PM Not Available Not Available Not Available Vicodin 5 mg-300 mg tablet take 1 tablet by oral route every 6 hours as needed for pain for 30 days 02/15 completed Vicodin 5-300 mg oral tablet;R ecorded Status: Recorded on: 08/07/20 14 9:27AM;D iscontin ued Status: Disconti nued on: 02/16/20 15 10:12AM; User: [email or web address] crawford;EstHugo Completjim on: 09/06/20 14;Indic ation: Pain - (30.5788 00) Not Available Not Available Not Available [...] Available No t Available Easy Comfort Pen Newcomb 31 gauge x 1/4 USE DAILY with [...] Available Not Available Not Available Flucelvax Quad 2535-3245 (PF) 60 mcg (15 mcg x 4)/0.5 mL IM syringe 04/11 completed Not Available Not Available Not Available Omnipod Dash Pods (Gen 4) subcutane ous cartridge CHANGE POD EVERY 2 TO 3 DAYS DIRECTED active Not Available Not Available No t Available FreeStyle Diana 2 Sensor kit DIRECTED CHANGING EVERY 14 DAYS active Not Available Not Available No t Available FreeStyle Diana 2 Drift USE DIRECTED active Not Available Not Available No t Available red beet 250 mg-sour turner extract 0.5 mg chewable tablet Take 1 tablet every day by oral route. 10/06 completed Not Available Not Available Not Available FreeStyle Diana 3 Plus Sensor device USE DIRECTED 01/13 completed Not Available Not Available Not Available Vitals Date Recorded Body height Body mass index (BMI) Body weight Body temperature Heart rate Oxygen saturation Oxygen saturation in Arterial blood by Pulse oximetry Respiratory rate Systolic blood pressure Diastolic blood pressure Provider Name and Address Organization Details Last Updated DateTime 5 157.48 cm 41.2 kg/m2 130263. 28 g 98.2 [degF] 89 /min 93 % 93 % 18 /min 122 mm[Hg] 74 mm[Hg] [place] - [facility] 14:05:35 Social History Question Answer Notes LastModified by Organizat ion Details LastModified Time Tobacco Smoking Status Former Smoker [place], [place] - [facility] 04/11/2022 16:07:03 Do You Have An Advance Directive? No Information not available 04/11/2022 Are You Blind Or Do You Have Difficulty Seeing? No Information not available 02/11/2018 What Is Your Level Of Caffeine Consumption? Moderate Information not available 01/19/2025 How Much Tobacco Do You Chew? None [email or web address] Information not available 02/11/2018 Are You Deaf Or Do You Have Serious Difficulty Hearing? No [email or web address] Information not available 02/11/2018 What Type Of Diet Are You Following? DIABETIC Information not available 01/19/2025 Which Illicit Or Recreational Drugs Have You Used? None [email or web address] Information not available 02/11/2018 What Is The Highest Grade Or Level Of School You Have Completed Or The Highest Degree You Have Received? [id number] Information not available 04/11/2022 How Many Days Of Moderate To Strenuous Exercise, Like A Brisk Walk, Did You Do In The Last 7 Days? 1 [email or web address] Information not available 02/11/2018 On Those Days That You Engage In Moderate To Strenuous Exercise, How Many Minutes, On Average, Do You Exercise? 1 [email or web address] Information not available 02/11/2018 Have There Been Any Changes To Your Family Or Social Situation? No Information not available 04/11/2022 How Hard Is It For You To Pay For The Very Basics Like Food, Housing, Medical Care, And Heating? [id number] [email or web address] Information not available 02/11/2018 What Is The Fluoride Status Of Your Home? Unknown Information not available 04/11/2022 When Did You Quit Smoking? 6-10yearssin [email or web address] tte Information not available 01/19/2025 Hard Of Hearing Or Deaf In One Or Both Ears? No [email or web address] Information not available 02/04/2018 Legally Blind In One Or Both Eyes? No Information not available 02/04/2018 Live Alone Or With Others? With Others Information not available 02/04/2018 Do You Have A Medical Power Of Instrumentation Chemist? No Information not available 04/11/2022 What Was [...] available 01/19/2025 What Is Your Relationship Status? [email or web address] Information not available 12/01/2018 Do You Use Your Seat Belt Or Car Seat Routinely? Yes Information not available 01/19/2025 Seat Belts Used Routinely Yes [email or web address] Information not available 02/11/2018 Are You Sexually Active? No Information not available 01/19/2025 Smoke Alarm In Home Yes [email or web address] Information not available 02/04/2018 Do You Have [...] Has Tobacco Cessation Counseling Been Provided? Yes [email or web address] Information not available 02/11/2018 On What Date Was Tobacco Cessation Counseling Provided? 12/01/2018 Information not available 12/01/2018 How Many Years Have You Smoked Tobacco? 44 Stopped In 2018 Information not available 05/31/2024 Do You Have Difficulty Walking Or Climbing Stairs? No [email or web address] Information not available 02/11/2018 Sex: Female Functional [...] 04/11/2022 Are you able to walk? YESWOREST [email or web address] Information not available 02/11/2018 Do you have difficulty doing errands alone? No [email or web address] Information not available 02/11/2018 Are you able to care for yourself? Yes [email or web address] Information n ot available 02/04/2018 Do you have difficulty dressing or bathing? No Information not available 02/11/2018 Do you or have you ever used e-cigarettes or vape? Former user of electronic cigarettes Information not available 01/19/2025 What is your exercise level? None Information not available 02/11/2018 Mental Status Question Answer Note LastModified by Organizat ion Details LastModified Time Do you feel stressed (tense, restless, nervous, or anxious, or unable to sleep at night)? [id number] Information not available 01/19/2025 Do you have difficulty concentrating, remembering or making decisions? No [email or web address] Information no t available 02/11/2018 Family History [...] 10:25:47 influenza, unspecified formulation 8 completed [place] [facility] 09/11/2023 15:28:59 influenza, unspecified formulation 0 completed [place] [facility] 09/11/2023 15:28:59 Tdap 5 completed [place] [facility] 01/19/2025 16:50:14 Td (adult), 2 Lf tetanus toxoid, preservative free, adsorbed 3 completed Magaly [place] [facility] 10/13/2022 11:30:52 Influenza, split virus, quadrivalent, PF 1 completed Mag[place] [facility] 10/13/2022 11:30:52 pneumococcal polysaccharide PPV23 1 completed Mag[place] [facility] 10/13/2022 11:30:52 Influenza, high-dose, quadrivalent, PF 3 completed [place] [facility] 09/11/2023 15:28:59 Past Encounters Encounter ID Performer Location Encounter Start Date Encounter Closed Date Diagnosis/Indication Diagnosis SNOMED-CT Code Diagnosis ICD10 Code Diagnosis Note [id number] Adam Glasgow APRN [address] [address] 01/13/2025 14:57:10 01/13/2025 16:00:14 Type 2 diabetes mellitus 05374494 E11.9 continue meds and diet Biomedical equipment procedure 784291546 Z46.81 [id number] Adam Glasgow APRN [address] [address] 01/19/2025 13:45:16 01/19/2025 15:14:08 Adult health examination 615889953 Z00.00 Depression screening 171 022861 Z13.31 A depression screening was completed via a standardiz ed screening tool. 5 minutes were spent discussing depression screening results and risk factors. Examinatio n of blood pressure 551593117 Z01.30 Diet education 60629979 Z71.3 Counseling 106588954 Z71 .82 Exercise counseling . Patient encouraged to exercise 30 minutes 5 days a week. At [facility] ed risk for falls 779045772 Z91.81 STEADI FAST screening score of __0___. Advance care planning 71 3266300 Z71.89 Screening for osteoporosis 914921331 Z13.820 Medication declined 4061 94285 Z28.21 Essential hypertension 45742447 I10 continue plan of care History of cerebrovascular accident without residual deficits 188478888 Z86.73 Hypercholesterolemia 136 74674 E78.00 labs Type 2 shelton betes mellitus 72893524 E11.9 continue meds and diet Malignant neoplasm of urinary bladder 069730271 C67.9 Health Concerns Section Related Observation LastModified by Organization Detai ls LastModified Time None Recorded Concern Status LastModified by Organization Details LastModified Time None Recorded Payers Encounter Date Sequence Insurance Name Policy Number Policy Mercado Covered Member ID Mercado Member ID Guarantor Name 01/19/2025 1 [employer] - GOLD PLUS (MEDICARE REPLACEMENT/A DVANTAGE - HMO) Erin Jung [id number] Erin Jung Notes Date Note Type Note Provider Name and Address Organization Details Recorded Time 01/19/2025 text/html 69 yr old female presents for a Medicare annual wellness exam. pt states she is having resection on due to bladder tumors. needs labs for chronic dx such as dm,lipids,copd,c va, bladder ca,lung ca Adam Glasgow, [employer] [address], [place], [address], [place] [facility] 03/07/2025 10:27:19 OBGyn Episode No OBEpisode recorded.
--- OUTSIDE RECORDS SUMMARY | 2025-03-16 15:04 | XMS_ITS ---
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 Other Current Plans OP Urology BCG Bladder Instillation for use in clinic* Plan Start Date:02/20/2025 Plan Provider:Trevon Grant MD Linked Problems Bladder mass Treatment Medications BCG live bladder instillatio n Past Treatment and Therapy Plans Resolved Problems Problem Noted Date Diagnosed Date Resolved Date Squamous cell carcinoma of lung, right 04/28/2019
--- OUTSIDE RECORDS SUMMARY | 2025-03-16 15:04 | XMS_ITS | Clinical Summary ---
Author Organization [facility] Address [address] [facility] [address] [place] [id number] Phone Care Team Providers Care Dance Professor Name Role Phone Camelia Patterson MD [phone] Conditions or Problems No information available. Medications No information available. Medications Administered No information available. Allergies, Adverse Reactions, Alerts No information available. Results No information available. Plan of Care No information available. Procedures No information available. Vital Signs No information available. Immunizations No information available. Advance Directives No information available.
--- OUTSIDE RECORDS SUMMARY | 2025-03-16 15:04 | XMS_ITS | Encounter Summary ---
Author Organization [facility] Address [address] [place] [address] Care Team Providers Care It Help Desk Analyst Name Role Phone Orlando Zhang MD Primary Care Provider [phone] Source Comments This information has been disclosed [...] release of HIV test results or diagnoses. FLU8818.24 Health Encounter Details Date Type Department Care Team (Late st Contact Info) Description 02/14/2025 Telephone [facility] [address] [place] [address] Jarod Jones MA Social History Tobacco Use Types Packs/Day Years Used Date Smoking Tobacco: Former Cigarettes 1 47 Smokeless Tobacco: Never Comments:currently 1ppd, on Chanti 2019 Alcohol Use Standard Drinks/Week Comments No 0 (1 standard drink = 0.6 oz pur e alcohol) Utilities Answer Date Recorded In the past 12 months has [employer], gas, oil, or water company threatened to [...] any time in the past 12 m [facility], were you homeless or living in a longterm (including now)? No 01/24/2025 Comments No Sex and Gender Information Value Date Recorded Sex Assigned at Not on file Legal Sex Female 7:42 PM EST Gender Identity Not on file Sexual Orientation Not on file documented as of this encounter Miscellaneous Notes * Telephone Encounter - Jarod Jones MA - 02/14/2025 8:44 AM EDT Left pt a VM to get scheduled for her BCG documented in this encounter Plan of Treatment Not on file documented as of this encounter Visit Diagnoses Not on filedocumented in this encounter Care Teams It Help Desk Analyst Relationship Specialty Start Date End Date Orlando Zhang MD [address] [place] [address] PCP - General Family Medicine 03/01/19 documented as of this encounter
--- OUTSIDE RECORDS SUMMARY | 2025-03-16 15:04 | XMS_ITS | Encounter Summary ---
Author Organization [facility] Address [address] [place] [address] Care Team Providers Care No Experience Name Role Phone Orlando Zhang MD Primary Care Provider [phone] Source Comments This information has been disclosed [...] release of HIV test results or diagnoses. UGN2311.24 Health Reason for Visit * Reason Comments Procedure Procedure Informatio n Request Encounter Details Date Type Department Care Team (Late st Contact Info) Description 01/17/2025 Telephone [facility] [address] [address] Trevon Grant MD [address] [place] [address] Procedure (Procedure Information Request ) Social History Tobacco Use Types Packs/Day Years Used Date Smoking Tobacco: Former Cigarettes 1 47 Smokeless Tobacco: Never Comments:currently 1ppd, on Chanti 2019 Alcohol Use Standard Drinks/Week Comments No 0 (1 standard drink = 0.6 oz pur e alcohol) Utilities Answer Date Recorded In the past 12 months has [email or web address], gas, oil, or water company threatened [...] any time in the past 12 m [facility], were you homeless or living in a usp (including now)? No 01/24/2025 Comments No Sex [...] R N documented as of this encounter Miscellaneous Notes * Telephone Encounter - Mireya Santo MA - 01/17/2025 4:11 PM EDT Pt calling to req a return call re:upcoming surgery. Pt will be dropped off by transportation co aswell as bring her home. She will not have anyone w/her when she leaves. Please advise. documented in this encounter Plan of Treatment Not on file documented as of this encounter Visit Diagnoses Not on filedocumented in this encounter Care Teams No Experience Relationship Specialty Start Date End Date Orlando Zhang MD [address] [place] [address] PCP - General Family Medicine 03/01/19 documented as of this encounter
--- OUTSIDE RECORDS SUMMARY | 2025-03-16 15:04 | XMS_ITS | Encounter Summary ---
Author Organization [facility] Address [address] [place] [address] Care Team Providers Care Wet Process Miller Head Name Role Phone Orlando Zhang MD Primary Care Provider [phone] Source Comments This information has been disclosed [...] release of HIV test results or diagnoses. [id number] Health Encounter Details Date Type Department Care Team (Late st Contact Info) Description 01/26/2025 Telephone [facility] [address] [place] [phone] Jarod Jones MA Social History Tobacco Use Types Packs/Day Years Used Date Smoking Tobacco: Former Cigarettes 1 47 Smokeless Tobacco: Never Comments:currently 1ppd, on [place] 2019 Alcohol Use Standard Drinks/Week Comments No 0 (1 standard drink = 0.6 oz pur e alcohol) Utilities Answer Date Recorded In the past 12 months has [employer], gas, oil, or water company threatened to [...] any time in the past 12 m [facility], were you homeless or living in a halfway (including now)? No 01/24/2025 Comments No Sex and Gender Information Value Date Recorded Sex Assigned at Not on file Legal Sex Female 7:42 PM EST Gender Identity Not on file Sexual Orientation Not on file documented as of this encounter Miscellaneous Notes * Telephone Encounter - Jarod Jones MA - 01/26/2025 2:25 PM EDT Spoke with pt to get her scheduled with Dr. Grant for 3 months with cytology and office cysto pt stated she wants to hold off until she gets more information. documented in this encounter Plan of Treatment Not on file documented as of this encounter Visit Diagnoses Not on filedocumented in this encounter Care Teams Wet Process Miller Head Relationship Specialty Start Date End Date Orlando Zhang MD [address] [place] [address] PCP - General Family Medicine 03/01/19 documented as of this encounter
--- OUTSIDE RECORDS SUMMARY | 2025-03-16 15:05 | XMS_ITS | Clinical Summary ---
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 You shall make no further disclosure of thisinformation without the specific, written, and informed release of theindividual to whom it pertains, or as otherwise permitted by law. A generalauthorization for the release of medical or other information is not sufficientfor the purposes of therelease of HIV test results or diagnoses. [id number] Health Allergies Active Allergy Reactions Criticality Noted Date Comments Diclofenac Nausea And Vomiting,Other (See Comments) 10/21/2019 Latex Rash Low 04/11/2019 I get a rash if I wear latex bras for too long. Medications albuterol (PROVENTIL;GEORGETTE TOLIN;PROAIR) 90 mcg/actuation inhaler 9 Active omeprazole (PRILOSEC) 40 MG capsule TAKE ONE CAPSULE BY MOUTH EVERY DAY BEFORE a meal 3 9 Active senna-docusate (SENNA-S) 8.6-50 mg per tablet Take 2 tablets by mouth 2 times a day. 30 tablet 04/16/2019 1:06 PM EDT 9 Active Additional Information Patient taking differently: 1 tabletOralDaily, Informant: Self, Reported on 01/02/2025 bisoprolol (ZEBETA) 5 MG tablet Take 1 tablet (5 mg total) by mouth daily. AM 0 Active apixaban (ELIQUIS) 5 mg Tab Take 1 tablet (5 mg total) by mouth 2 times a day. 0 Active atorvastatin (LIPITOR) 80 MG tablet Take 1 tablet (80 mg total) by mouth at bedtime. 0 Active TRULICITY 0.75 mg/0.5 mL PnIj Inject 0.75 mg subcutaneously once a week. 4 Active FIASP U-100 INSULIN 100 unit/mL Soln INJECT 80 UNITS SUBCUTANEOUSLY EVERY DAY PER OMNIPOD DIRECTED (PER OMNIPOD MAX OF 80 UNITS PER DAY) 2 Active spironolactone (ALDACTONE) 50 MG tablet Take 1 tablet (50 mg total) by mouth daily. 4 Active torsemide (DEMADEX) 20 MG tablet Take 1 tablet (20 mg total) by mouth daily. 4 Active aspirin 81 MG EC tablet Take 1 tablet (81 mg total) by mouth daily. 0 Active naproxen sodium (ANAPROX) 220 MG tablet Take 1 tablet (220 mg total) by mouth 2 times a day with meals. Active oxybutynin (DITROPAN) 5 MG tablet Take 1 tablet (5 mg total) by mouth 3 times a day as needed. 15 tablet 4 Active Additional Information Patient not taking.Informant: Self, Reported on 01/02/2025 UNABLE TO FIND Med Name: oxygen 2 liters per Nasal cannula as needed Active Active Problems Problem Noted Date Diagnosed Date Bladder mass 06/30/2024 Calculus of ureter 06/30/2024 Lung nodule 04/04/2019 Overview (04/04/2019): Added automatically from request for surgery [id number] Malignant neoplasm of lower lobe of right lung 0 03/31/2019 Cancer Staging:Clinical: Unsigned Pathologic stage from 04/28/2019:Stage IA3(pT1c, pN0, cM0) - Signed by Ruma Yang MD on 04/28/[address] of the chest 03/09/2019 Overview (03/09/2019): Added automatically from request for surgery [id number] Resolved Problems Problem Noted Date Diagnosed Date Resolved Date Squamous cell carcinoma of lung, right 04/28/2019 Encounters Date Type Department Care Team Description 02/14/2025 Telephone [facility] [address] [place] [address] [facility] [place] [address] Jarod Jones MA 01/26/2025 Orders Only [facility] [address] [place] [address] Trevon Grant MD 01/26/2025 Telephone [facility] [address] [place] [address] Jarod Jones MA 01/26/2025 Orders Only [facility] [address] [place] [address] Saray Hollis RN 01/24/2025 10:50 AM EDT - 01/24/2025 12:10 PM EDT Surgery [facility] [address] [facility] [place] [address] Trevon Grant MD CYSTOSCOPY TRANSURETHRAL RESECTION BLADDER 01/24/2025 10:38 AM EDT Anesthesia Event [facility] [address] [place] [address] Juvencio Martinez MD 01/24/2025 8:44 AM EDT - 01/25/2025 3:33 PM EDT Hospital Encounter [facility] [address] [place] [address] [place] [address] Trevon Grant MD Malignant neoplasm of urinary bladder, unspecified site ([facility]) Discharge Disposition: Home or Self Care WITHOUT Home Care Services 01/24/2025 Travel 01/18/2025 Telephone [facility] [address] [place] [address] Jarod Jones MA 01/17/2025 Telephone [facility] [address] [place] [address] Trevon Grant MD Procedure (Procedure Information Request ) 12/27/2024 11:00 AM EDT Procedure visit [facility] [address] [facility] [address] [place] [address] Trevon Grant MD Malignant neoplasm of urinary bladder, unspecified site (CMS-HCC) (Primary Dx); Bladder mass 12/27/2024 Orders Only [facility] [address] [facility] [address] [place] [address] Trevon Grant MD Malignant neoplasm of urinary bladder, unspecified site (CMS-HCC) (Primary Dx) 12/27/2024 Orders Only [facility] [address] [place] [address] Trevon Grant MD from Last 3 Months Family History Medical History Relation Comments Cancer Father colon cancer Atrial fibrillation Mother Cancer Mother breast cancer Stroke Mother Relation Status Comments Father Mother Sister Social History Tobacco Use Types Packs/Day Years Used Date Smoking Tobacco: Former Cigarettes 1 47 Smokeless Tobacco: Never Tobacco Cessation:Counseling Given: Not Answered Comments:currently 1ppd, on 2018 Alcohol Use Standard Drinks/Week Comments No 0 (1 standard drink = 0.6 oz pur e alcohol) Utilities Answer Date Recorded In the past 12 months has [employer], gas, oil, or water [employer] threatened to shut off services in your [...] any time in the past 12 m [facility], were you homeless or living in a half-way (including now)? No 01/24/2025 Comments No Sex and Gender Information Value Date Recorded Sex Assigned at Not on file Legal Sex Female 7:42 PM EST Gender Identity Not on file Sexual Orientation Not on file Last Filed Vital Signs Vital Sign Reading [...] Mass Index 39.68 01/24/2025 9:30 AM EDT Plan of Treatment Health Maintenance Due Date Last Done Comments Abnormal Colonoscopy Follow Up 1956 Depression Screening 1974 Mammogram (MyChart) 1996 Cologuard (FIT-DNA) 2001 Colonoscopy 2001 Colorectal Cancer Screening (MyChart) 2001 Stool Testing (gFOBT) 2001 Immunization: Zoster (1 of 2) 2006 Lung Cancer Screening 2006 Osteoporosis Screening (DXA Scan) 2006 Immunization: Pneumococcal ( 2 of 2 - PCV) 10/11/2021 10/11/2020 Immunization: COVID-19 ( - season) 2024 Diabetes Screening 01/25/2026 01/25/2025, 1 , 04/12/2019 Immunization: RSV (Adult) (1 - 1-dose 75+ series) 2031 Immunization: DTaP/Tdap/Td ( 2 - Td or Tdap) 01/19/2035 01/19/2025, 05/18/2003 Hepatitis C Screening (MyChart) Completed Immunization: Influenza (MyChart) Completed 07/13/2024, 09/10/2023, 10/11/2020, Additional history exists Procedures Procedure Name Priority Date/Time Associated Diagnosis [...] Malignant neoplasm of urinary bladder, unspecified site ([facility]) Special Needs 23 HR OBSERVATION- #LW POC GLU MONITORING DEVICE Routine 01/24/2025 9:21 AM EDT SURGICAL PATHOLOGY EXAM Routine 01/24/2025 12:00 AM EDT ED HCV AB REFLEX TO HCV QUANT Routine 06/12/2024 9:00 PM EDT from Last 3 Months or Most Recently Relevant to Health Maintenance Results * Rhythm Strips - scan (01/27/2025 3:49 AM EDT) us Scanning Uchhim SCAN DOCS - NO RESULTS Final Res ult * (ABNORMAL) POC Glucose Monitoring Device (01/25/2025 12:02 PM EDT) Only the most recent of7 resultswithin the time period is included. POC Glucose Monitoring Device 175(H) 70 - 100 mg/dL 01/25/2025 12:03 PM EDT [facility] Blood 01/25/2025 12:0 2 PM EDT 01/25/2025 12:03 PM EDT us Trevon Grant MD POINT OF CARE TEST ORDERABLES Final Result [facility] [address] * (ABNORMAL) Hemoglobin A1c (01/25/2025 3:38 AM EDT) Hemoglobin A1C 6.8(H) 4.0 - 5.6 % 01/25/2025 4:47 AM EDT [facility] Comment: Hemoglobin A1c Interpretation Guidelines: [...] 3:38 AM EDT 01/25/2025 3:58 AM EDT us Stuart Hayes MD LAB BLOOD ORDERABLES Final Resul t [facility] [address] [place] [address]. [place] [address], [facility] * Surgical Pathology Exam (01/24/2025 12:00 AM EDT) 01/24/2025 01/24/2025 Narrative [facility] - 01/24/2025 12:00 AM EDT CASE: [id number] PATIENT: TRINIDAD JUNG Clinical History: cystoscopy transurethral resection bladder Pre-Operative Diagnosis: malignant neoplasm of urinary bladder, unspecified site Post-Operative Diagnosis: same Specimen(s) Submitted: A. bladder tumor CPT Code(s): 68853 X 1 Additional Information: FINAL DIAGNOSIS: Bladder, [...] Pathologist signing this report is located at [facility], [address] [place] [address], [place], [place], [facility], , CLIA ID: [id number] us Trevon Grant MD PATHOLOGY/CYTOLOGY ORDERABLES Final Result [facility] * ED HCV Ab Reflex To HCV Quant (06/12/2024 9:00 PM EDT) HCV Ab Nonreactive Nonreactive 06/12/2024 10:06 PM EDT [facility] Comment:Health Department no tified in accordance with reportable infectious disease guidelines. HCVAB Number 0.12 0.00 - 0.79 S/CO 06/12/2024 10:06 PM EDT [facility] Serum 06/12/2024 9:00 PM EDT 06/12/2024 9:10 PM EDT us Olegario HUTOSN LAB BLOOD ORDERABLES Final Res ult [facility] [address] from Last 3 Months or Most Recently Relevant to Health Maintenance Insurance Advance Directives For more information, please contact: [phone] * Full Code (Latest Code Status on File) Date Activated Date Inactivated Comments 01/24/2025 3:48 PM 01/25/2025 7:39 PM * Full Code Date Activated Date Inactivated Comments 07/15/2024 2:07 PM 07/17/2024 7:55 PM * Full Code Date Activated Date Inactivated Comments 04/11/2019 1:26 PM 04/16/2019 6:19 PM Care Teams Sanding Machine Operator Or Tender Relationship Specialty Start Date End Date Orlando Zhang MD [address] [place] [address] PCP - General Family Medicine 03/01/19
== END 2025-03-16 23:59 | disposition home or self-care (01) ==
LOC: RAD 14:21
PROVIDERS: PCP Family Medicine; Visit Provider Nurse Practitioner Family
DX: R22.31 Localized swelling, mass and lump, right upper limb (principal)
CPT/HCPCS: 76882

== ENCOUNTER 2025-03-23 06:18 | Day surgery (SDC) | payer MEDICARE, SELFPAY ==
[2025-03-23 06:50] VITALS: BP 134/53; PULSE 53; RESP 18; TEMP 36.4; O2SAT 92; BMI 41.5
[2025-03-23 07:13] LABS: POC Glucose,Bedside 174 (70-110)
[2025-03-23] MEDS: LIDOCAINE 1% 20ML MDV 20 ML (07:15)
[2025-03-23 07:35] VITALS: BP 134/68; PULSE 56; RESP 18; TEMP 36.3; O2SAT 91
--- NOTE | 2025-03-23 07:36 | EXP.OP.NOTE ---
Date of procedure: 03/23/25 Pre-op Diagnosis:: Right upper extremity abscess sebaceous cyst Post-op Diagnosis:: Same Procedure performed:: Incision and drainage of abscess to right upper extremity sebaceous cyst Surgeon:: Catrachito Martin MD Anesthesia: local Estimated blood loss (mL): 5 Operative findings:: Abscess cavity evacuated Wound packed open Operative note:: After informed consent was obtained the patient was taken to the procedure room. Her right upper arm was prepped and draped in a sterile fashion. After infiltration with local anesthetic electrocautery was utilized to excise the central portion of of the overlying skin and an elliptical fashion. Dissection was taken to the deep subcutaneous tissue. The underlying abscessed sebaceous tissue was evacuated. Electrocautery was then utilized to achieve hemostasis and the wound was packed with gauze. Dressings were applied and the patient was discharged home in stable condition Condition: stable Disposition: no change Specimens:: None for pathology Complications:: No immediate
[2025-03-23 07:50] VITALS: BP 134/68; PULSE 56; RESP 18; TEMP 36.3; O2SAT 91
== END 2025-03-23 07:50 | disposition home or self-care (01) ==
PROVIDERS: PCP Family Medicine; Visit Provider Surgery
PROC: (CPT 10060; principal; 2025-03-23 07:00)
DX: L02.413 Cutaneous abscess of right upper limb (principal); L72.3 Sebaceous cyst; J44.9 Chronic obstructive pulmonary disease, unspecified; E78.5 Hyperlipidemia, unspecified; E11.9 Type 2 diabetes mellitus without complications; I11.0 Hypertensive heart disease with heart failure; I50.9 Heart failure, unspecified; Z79.01 Long term (current) use of anticoagulants; Z79.82 Long term (current) use of aspirin; Z79.899 Other long term (current) drug therapy; Z79.85 Long-term (current) use of injectable non-insulin antidiabetic drugs; Z96.41 Presence of insulin pump (external) (internal); Z86.718 Personal history of other venous thrombosis and embolism; Z86.711 Personal history of pulmonary embolism; Z86.73 Personal history of transient ischemic attack (TIA), and cerebral infarction without residual deficits; Z87.891 Personal history of nicotine dependence; Z91.040 Latex allergy status; Z88.6 Allergy status to analgesic agent; Z85.118 Personal history of other malignant neoplasm of bronchus and lung; Z85.51 Personal history of malignant neoplasm of bladder; Z79.51 Long term (current) use of inhaled steroids
CPT/HCPCS: 10060; 82962; J2003

== ENCOUNTER 2025-03-31 07:49 | Outpatient (CLI) | payer MEDICARE, SELFPAY ==
--- OUTSIDE RECORDS SUMMARY | 2025-03-31 07:51 | XMS_ITS | Clinical Summary ---
Author Organization [facility] [place] [address] Care Team Providers Care Pipe Fitter Maintenance Name Role Phone Unavailable Primary Care Provider [...]
--- OUTSIDE RECORDS SUMMARY | 2025-03-31 07:52 | XMS_ITS | Continuity of Care Document ---
Author Organization [facility], [facility] Address [address] [place] [address] Care Team Providers Care Supervisor [employer] Name Role Phone ANY GLASGOW Primary Care Provider Unavailabl e Assessment No assessment recorded. Plan of Treatment Reminders Order Date Submit Date Provider Last Modified By Organization Details Last Modified Time Details Appointments None record ed. Lab None record ed. Referral None record ed. Procedures None record ed. Surgeries None record ed. Imaging None record ed. Medication Orders None record ed. Patient TargetsNo targets recorded. Patient InstructionsNo instructions recorded. Reason for Referral None Reported. Problems Name Problem SNOMED Code Status Onset Date Resolution Date Notes Provider Name and Address Organization Details Recorded Time Type 2 diabetes mellitus 92144823 Active 2021 Any Glasgow APRN [address], [place], [address], [facility] 2 16:15:36 History of cerebrovascu lar accident without residual deficits 709332826 Active Any Glasgow APRN [address], [place], [address], [facility] 2 16:15:31 Hypercholest erolemia 65839647 Active 2021 Any Glasgow APRN [address], [place], [address], [facility] 2 16:16:05 History of malignant neoplasm of lung 164034556 Active 2021 removed right lower lung Magaly [place], [place] - [facility] 4 13:50:05 Generalized headache 060646283 Active Chava grayson null, [place] - [facility] 6 15:57:11 Gastroesopha geal reflux disease 234881675 Active Chava gr[place], [place] - [facility] 6 15:57:24 Chronic obstructive pulmonary disease 49352504 Active Chava gr[place], [place] - [facility] 6 15:57:37 Essential hypertension 32456161 Active Chava gr[place], [place] - [facility] 6 15:57:53 Malignant neoplasm of urinary bladder 648168471 Active 2024 Any Barlowbhavanisanjay, CADD OPERATOR [address], [place], [address], [place] - [facility] 11:44:37 Problem Notes None recorded. Procedures Surgical History Date Name Laterality Status Provider Name and Address Organization Details Recorded Time 01/20/20 25 Advance Care Planning completed [place] - [facility] 01/19/2025 13:51:35 01/20/20 25 Functional Status Assessed completed [place] Sweta [place] - [facility] 01/19/2025 13:51:35 04/26/20 24 Date of Last Mammogram completed Magaly Valles [place] - [facility] 10/06/2024 10:40:53 04/11/20 19 Cancer Surgery completed [place] - [facility] 01/19/2025 13:52:29 04/11/20 [...] completed Marah Leblanc [place] - [facility] 10/07/2018 15:28:14 02/16/20 15 Date of Last Pap Smear completed Chava [place] - [facility] 09/23/2016 15:47:00 02/02/19 88 Tubal Ligation completed [place] - [facility] 01/19/2025 13:52:29 10/05/18 70 Tonsillectomy completed [place] - [facility] 01/19/2025 13:52:29 procedure on urinary bladder completed Magaly [place]es [place] - [facility] 10/06/2024 10:40:18 Breast Biopsy completed Chava [place] - [facility] 09/23/2016 15:53:29 Cholecystectomy, laparoscopic completed Chava Beach [facility] 09/23/2016 15:53:41 Colposcopy completed [place] [facility] 09/23/2016 15:54:18 Endometrial Biopsy completed [place] [facility] 09/23/2016 15:54:41 Unlisted procedure stomach completed Chava [place] - [facility] 09/23/2016 15:54:55 Tonsillectomy completed Chava [place] - [facility] 09/23/2016 15:55:10 Tubal Ligation completed Chava [place] - [facility] 09/23/2016 15:55:22 Imaging Results None recorded. [...] Disconti nued on: 11/03/19 12 9:07AM;U ser: [email or web address] ryh;Est. Completi on: 10/21/19 12;Print ed: 10/01/20 [...] 14;Indic ation: Seborrhe ic Dermatit is - (12.6901 00) Not Available Not Available Not Available [...] User: [email or web address] crawford;Est. Completi on: 01/05/20 15;Pharm acyVrand ied: 08/07/20 14 10:35AM Not Available Not [...] Not Available Not Available No t Available [place] 5 mg-325 mg tablet Take 1 tablet [...] nued on: 09/21/20 13 2:56PM;U ser: [email or web address] ryalex;Est. Completi on: 09/10/20 13;Pharm acyVerif ied: 08/31/20 13 3:15PM Not Available Not Available Not Available Mucinex D 60 mg-600 mg tablet,ex tended release Take 1 tablet twice a day by oral route. 10/06 completed Not Available Not Available Not Available [place] 1 q12h prn pain 09/27 completed norco 5 /325mg;R ecorded Status: Recorded on: 08/28/20 15 1:09PM;U ser: [email or web address] ryh;Est. Completi on: 09/27/20 15;Indic ation: - (-5) Not Available Not Available Not Available meloxicam one daily 11/30 completed meloxica m 15 mg.;Milan rded Status: Recorded on: 11/08/19 14 8:28PM;D iscontin ued Status: Disconti nued on: 11/30/19 14 9:55AM;U ser: [email or web address]; Est. Completi on: 01/08/20 14;Indic ation: pain - (-5) Not Available Not Available Not Available Cipro 1 bid 11/03 completed cipro 500 mg;Recor ded Status: Recorded on: 12/10/19 11 2:15PM;D iscontin ued Status: Disconti nued on: 11/03/19 12 9:07AM;U ser: [email or web address] crawford;Est. Completi on: 12/17/19 11;Indic ation: - (-5) [...] Disconti nued on: 09/09/20 10 3:52PM;U ser: sawyrebe ryalex;Est. Completi on: 09/15/20 08;Indic ation: - (-5);Serena [...] Disconti nued on: 09/09/20 10 3:58PM;U ser: [email or web address];E st. Completi on: 08/02/20 11;Indic ation: - (-5);Serena nted: 08/07/20 10 Not Available Not Available Not Available Tussionex [place] [facility] 1 tsp q12h 08/31 completed tussinex ;Recorde d Status: Recorded on: 02/02/20 13 9:53AM;D iscontin ued Status: Disconti nued on: 08/31/20 13 2:13PM;U ser: [email or web address] ryalex;Est. Completi on: 02/23/20 13;Indic ation: - (-5) [...] Disconti nued on: 11/03/19 12 9:07AM;U ser: [email or web address] ryalex;Est. Completi on: 10/08/19 12;Indic ation: - (-5);Serena [...] nued on: 05/30/20 16 6:30PM;U ser: [email or web address] yvette;Est. Completi on: 09/27/20 15;Indic ation: Smoking [...] on: 02/16/20 15 10:12AM; User: [email or web address] crawford;EstHugo Ricei on: 09/06/20 14;Indic ation: Pain - (16.3303 00) Not Available Not Available Not Available [...] Available No t Available Easy Comfort Pen [place] 31 gauge x 1/4 USE DAILY with [...] Available Not Available Not Available Flucelvax Quad [id number] (PF) 60 mcg (15 mcg x 4)/0.5 mL IM syringe 04/11 completed Not Available Not Available Not Available Omnipod Dash Pods (Gen 4) subcutane ous cartridge CHANGE POD EVERY 2 TO 3 DAYS DIRECTED active Not Available Not Available No t Available FreeStyle Diana 2 Sensor kit DIRECTED CHANGING EVERY 14 DAYS active Not Available Not Available No t Available FreeStyle Diana 2 [place] USE DIRECTED active Not Available Not Available [...] mass index (BMI) Body weight Heart rate Oxygen saturation Oxygen saturation in Arterial blood by Pulse oximetry Respiratory rate Systolic blood pressure Diastolic blood pressure Provider Name and Address Organization Details Last Updated DateTime 5 157.48 cm 42.1 kg/m2 588976. 25 g 89 /min 92 % 92 % 22 /min 126 mm[Hg] 78 mm[Hg] [place] - [facility] 5 16:06:37 Social History Question Answer Notes LastModified by Organizat ion Details LastModified Time Tobacco Smoking Status Former Smoker Magaly [place] - [facility] 04/11/2022 16:07:03 Do You Have An Advance Directive? No Information not available 04/11/2022 Are You Blind Or Do You Have Difficulty Seeing? No [email or web address] Information not available 02/11/2018 What Is Your Level Of Caffeine Consumption? Moderate Information not available 01/19/2025 How Much Tobacco Do You Chew? None [email or web address] Information not available 02/11/2018 Are You Deaf Or Do You Have Serious Difficulty Hearing? No [email or web address] Information not available 02/11/2018 What Type Of Diet Are You Following? DIABETIC Information not available 01/19/2025 Which Illicit Or Recreational Drugs Have You Used? None [email or web address] Information not available 02/11/2018 What Is The Highest Grade Or Level Of School You Have Completed Or The Highest Degree You Have Received? [id number] Information not available 04/11/2022 How Many Days Of Moderate To Strenuous Exercise, Like A Brisk Walk, Did You Do In The Last 7 Days? 1 [email or web address] Information not available 02/11/2018 On Those Days That You Engage In Moderate To Strenuous Exercise, How Many Minutes, On Average, Do You Exercise? 1 [email or web address] Information not available 02/11/2018 Have There Been Any Changes To Your Family Or Social Situation? No Information not available 04/11/2022 How Hard Is It For You To Pay For The Very Basics Like Food, Housing, Medical Care, And Heating? [id number] [email or web address] Information not available 02/11/2018 What Is The Fluoride Status Of Your Home? Unknown Information not available 04/11/2022 When Did You Quit Smoking? 6-10yearssin [email or web address] tte Information not available 01/19/2025 Hard Of Hearing Or Deaf In One Or Both Ears? No [email or web address] Information not available 02/04/2018 Legally Blind In One Or Both Eyes? No [email or web address] Information not available 02/04/2018 Live Alone Or With Others? With Others Information not available 02/04/2018 Do You Have A Medical Power Of Screener Operator? No Information not available 04/11/2022 What Was [...] available 01/19/2025 Seat Belts Used Routinely Yes [email or web address] Information not available 02/11/2018 Are You Sexually Active? No Information not available 01/19/2025 Smoke Alarm In Home Yes [email or web address] Information not available 02/04/2018 Do You Have [...] Has Tobacco Cessation Counseling Been Provided? Yes [email or web address] Information not available 02/11/2018 On What Date Was Tobacco Cessation Counseling Provided? 12/01/2018 Information not available 12/01/2018 How Many Years Have You Smoked Tobacco? 44 Stopped In 2019 Information not available 05/31/2024 Do You Have Difficulty Walking Or Climbing Stairs? No Information not available 02/11/2018 Sex: Female Functional Status Question Answer Note LastModified by [employer] ion Details LastModified Time Do you use [...] 04/11/2022 Are you able to walk? YESWOREST [email or web address] Information not available 02/11/2018 Do you have difficulty doing errands alone? No [email or web address] Information not available 02/11/2018 Are you able to care for yourself? Yes [email or web address] Information n ot available 02/04/2018 Do you have difficulty dressing or bathing? No [email or web address] Information not available 02/11/2018 Do you or have you ever used e-cigarettes or vape? Former user of electronic cigarettes Information not available 01/19/2025 What is your exercise level? None [email or web address] Information not available 02/11/2018 Mental Status Question Answer Note LastModified by Organizat ion Details LastModified Time Do you feel stressed (tense, restless, nervous, or anxious, or unable to sleep at night)? [id number] Information not available 01/19/2025 Do you have difficulty concentrating, remembering or making decisions? No [email or web address] Information no t available 02/11/2018 Family History [...] available 2024 13:52:05 Medical History Condition Response COPD Y Muscle, Joint, or Bone Problems Y Obesity Y Vision or Eye Problems Y Arthritis Y Acid Reflux (GERD) Y Cancer Y Stroke Y Headaches Y Irritable Bowel Syndrome Y Ear or Hearing Problems Y Kidney or Bladder Problems Y Constipation Y Lung Disease Y Blood clot Y Anemia Y Abnormal PAP Y Diabetes Y Degenerative [...] trivalent, PF 4 completed Magaly [place] - [facility] 10/06/2024 10:25:47 influenza, unspecified formulation 8 completed F[place] [facility] 09/11/2023 15:28:59 influenza, unspecified formulation 0 completed [place] [facility] 09/11/2023 15:28:59 Tdap 5 completed [place] [facility] 01/19/2025 16:50:14 Td (adult), 2 Lf tetanus toxoid, preservative free, adsorbed 3 completed Magaly [place] [facility] 10/13/2022 11:30:52 Influenza, split virus, quadrivalent, PF 1 completed Magaly Ste[place] null, [place] - [facility] 10/13/2022 11:30:52 pneumococcal polysaccharide PPV23 1 completed Magaly Ste[place], [place] - [facility] 10/13/2022 11:30:52 Influenza, high-dose, quadrivalent, PF 3 completed [place] - [facility] 09/11/2023 15:28:59 Past Encounters Encounter ID Performer Location Encounter Start Date Encounter Closed Date Diagnosis/Indication Diagnosis SNOMED-CT Code Diagnosis ICD10 Code Diagnosis Note [id number] Any Glasgow APRN [address] [address] 03/24/2025 14:37:12 03/24/2025 15:41:48 Cyst of skin 636593139 L72.9 packing removed.ed ucated how to do dressing changeclea ariana with salinepack ed with saline soaked gauze and sterle qtipcovere d with telfa and wrapped with kerlexpt tolerated well [id number] Any Glasgow APRN [facility] [address] [place] [address] 03/28/2025 15:58:20 03/28/2025 17:20:11 Cyst of skin 961912335 L72.9 packing removed.ed ucated how to do dressing changeclea ariana with salinepack ed with saline soaked gauze and sterle qtipcovere d with telfa and wrapped with kerlexpt tolerated well Health Concerns Section Related Observation LastModified by Organization Detai ls LastModified Time None Recorded Concern Status LastModified by Organization Details LastModified Time None Recorded Payers Encounter Date Sequence Insurance Name Policy Number Policy Mercado Covered Member ID Mercado Member ID Guarantor Name 03/28/2025 1 [employer] - GOLD PLUS (MEDICARE REPLACEMENT/A DVANTAGE - HMO) Erin Jung [id number] Erin Jung Notes Date Note Type Note Provider Name and Address Organization Details Recorded Time 03/28/2025 text/html 69 yr old female presents for a right arm wound recheck/dressing change. pt states she tolerated dressing change well over the weekend Any Glasgow APRN [address], [place], [address], [place] - [facility] 03/28/2025 16:49:56 OBGyn Episode No OBEpisode recorded.
--- OUTSIDE RECORDS SUMMARY | 2025-03-31 07:52 | XMS_ITS | Data Portability ---
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 Name Role Phone ANY BO Primary Care Provider Unavailabl e Assessment Encounter [...] ALBIN [facility], [address], [address] [address], [place], [address], 5 13:10:56 microalb umin/cre atinine, mass ratio, urine 025 01/20/20 25 ALBIN [facility], [address], [address] [address], [place], [address], 5 13:10:56 lipid panel, serum 025 01/20/20 25 ALBIN [facility], [address], [address] [address], [place], [address], 5 13:10:56 CMP, serum or plasma 025 01/20/20 25 ALBIN [facility], [address], [address], [place], [address], 5 13:10:55 CBC w/ auto diff 025 01/20/20 25 ALBIN [facility], [address], [address] [address], [place], [address], 5 13:10:55 HbA1c (hemoglo bin A1c), blood 025 10/06/19 25 ALBIN [facility], [address], [address] [address], [place], [address], 5 07:07:06 CMP, serum or plasma 025 10/06/19 25 ALBIN [facility], [address], [place] [address], [place], [address], 5 07:07:05 CBC w/ auto diff 025 10/06/19 25 ALBIN [facility], [address], [place] [address], [place], [address], 5 07:07:04 lipid panel, serum 025 10/06/19 25 ALBIN [facility], [address], [address] [address], [place], [address], 5 07:07:06 Referral None recorded . Procedures None recorded . Surgeries None recorded . Imaging None recorded . Medication Orders None recorded . Patient TargetsNo targets recorded. Patient Instructions Encounter Date Encounter Id Patient Instructions Last Modified By Organization Details Last Modified Time 01/19/2025 [id number] advance directives: care instructions efryman Not available 01/19/2025 14:48:41 learning about depression efryman Not available 01/19/2025 14:48:41 preventing falls : care instructions efryman Not available 01/19/2025 14:48:40 medicare preventive services guide efryman Not available 01/19/2025 14:48:41 Reason for Referral None Reported. Results Created Date Observation Date Name Description Value Unit Range Abnormal Flag Note LastModifiedBy Organization Detail LastModifiedTime 10/06/1910/07/2024 CBC WITH DIFFE RENTI AL/PL ATELE T WBC 6.8 x10e3 /uL 3.4-10 .8 normal Not Available [facility] ([facility]) [address] [facility], [place], [address], 10/07/2024 07:07:04 10/06/1910/07/2024 CBC WITH DIFFE RENTI AL/PL ATELE T RBC 4.24 x10e6 /uL 3.77-5 .28 normal Not Available [facility] ([facility]) [address] [place], [address], 10/07/2024 07:07:04 10/06/1910/07/2024 CBC WITH DIFFE RENTI AL/PL ATELE T hemoglobin 12.6 g/dL 11.1-1 5.9 normal Not Available [facility] ([facility]) [address] [facility], [place], [address], 10/07/2024 07:07:04 10/06/1910/07/2024 CBC WITH DIFFE RENTI AL/PL ATELE T hematocrit 39.3 % 34.0-4 6.6 normal Not Available [facility] ([facility]) [address] [place], [address], 10/07/2024 07:07:04 10/06/1910/07/2024 CBC WITH DIFFE RENTI AL/PL ATELE T MCV 93 fL 79-97 normal Not Available [facility] ([facility]) [address] [place], [address], 10/07/2024 07:07:04 10/06/1910/07/2024 CBC WITH DIFFE RENTI AL/PL ATELE T MCH 29.7 pg 26.6-3 3.0 normal Not Available [facility] ([facility]) [address] [facility], [place], [address], 10/07/2024 07:07:04 10/06/19 25 10/07/2024 CBC WITH DIFFE RENTI AL/PL ATELE T MCHC 32.1 g/dL 31.5-3 5.7 normal Not Available [facility] ([facility]) [address] [facility], [place], [address], 10/07/2024 07:07:04 10/06/19 25 10/07/2024 CBC WITH DIFFE RENTI AL/PL ATELE T RDW 13.3 % 11.7-1 5.4 Not Available [facility] ([facility]) [address] [facility], [place], [address], 10/07/2024 07:07:04 10/06/19 25 10/07/2024 CBC WITH DIFFE RENTI AL/PL ATELE T platelets 209 x10e3 /uL 150-45 0 normal Not Available [facility] ([facility]) [address] [facility], [place], [address], 10/07/2024 07:07:04 10/06/19 25 10/07/2024 CBC WITH DIFFE RENTI AL/PL ATELE T neutrophils 78 % not estab. normal Not Available [facility] ([facility]) [address] [facility], [place], [address], 10/07/2024 07:07:04 10/06/19 25 10/07/2024 CBC WITH DIFFE RENTI AL/PL ATELE T lymphs 15 % not estab. normal Not Available [facility] ([facility]) [address] [facility], [place], [address], 10/07/2024 07:07:04 10/06/19 25 10/07/2024 CBC WITH DIFFE RENTI AL/PL ATELE T monocytes 5 % not estab. normal Not Available [facility] ([facility]) [address] [facility], [place], [address], 10/07/2024 07:07:04 10/06/19 25 10/07/2024 CBC WITH DIFFE RENTI AL/PL ATELE T eos 2 % not estab. normal Not Available [facility] ([facility]) [address] [facility], [place], [address], 10/07/2024 07:07:04 10/06/19 25 10/07/2024 CBC WITH DIFFE RENTI AL/PL ATELE T basos 0 % not estab. normal Not Available [facility] ([facility]) [address] [facility], [place], [address], 10/07/2024 07:07:04 10/06/19 25 10/07/2024 CBC WITH DIFFE RENTI AL/PL ATELE T immature cells INFECTION PREVENTION PRACTITIONER Not Available [facility] ([facility]) [address] [place], [address], 10/07/2024 07:07:04 10/06/1910/07/2024 CBC WITH DIFFE RENTI AL/PL ATELE T neutrophils (absolute) 5.4 x10e3 /uL 1.4-7. 0 normal Not Available [facility] ([facility]) [address] [place], [address], 10/07/2024 07:07:04 10/06/1910/07/2024 CBC WITH DIFFE RENTI AL/PL ATELE T lymphs (absolute) 1.0 x10e3 /uL 0.7-3. 1 normal Not Available [facility] ([facility]) [address] [place], [address], 10/07/2024 07:07:04 10/06/19 25 10/07/2024 CBC WITH DIFFE RENTI AL/PL ATELE T monocytes(ab solute) 0.3 x10e3 /uL 0.1-0. 9 normal Not Available [facility] ([facility]) [address] [facility], [place], [address], 10/07/2024 07:07:04 10/06/19 25 10/07/2024 CBC WITH DIFFE RENTI AL/PL ATELE T eos (absolute) 0.1 x10e3 /uL 0.0-0. 4 normal Not Available [facility] ([facility]) [address] [facility], [place], [address], 10/07/2024 07:07:04 10/06/19 25 10/07/2024 CBC WITH DIFFE RENTI AL/PL ATELE T baso (absolute) 0.0 x10e3 /uL 0.0-0. 2 normal Not Available [facility] ([facility]) [address] [facility], [place], [address], 10/07/2024 07:07:04 10/06/19 25 10/07/2024 CBC WITH DIFFE RENTI AL/PL ATELE T immature granulocytes 0 % not estab. Not Available [facility] ([facility]) [address] [facility], [place], [address], 10/07/2024 07:07:04 10/06/19 25 10/07/2024 CBC WITH DIFFE RENTI AL/PL ATELE T immature grans (abs) 0.0 x10e3 /uL 0.0-0. 1 Not Available [facility] ([facility]) [address] [facility], [place], [address], 10/07/2024 07:07:04 10/06/19 25 10/07/2024 CBC WITH DIFFE RENTI AL/PL ATELE T NRBC INFECTION PREVENTION PRACTITIONER Not Available [facility] ([facility]) [address] [facility], [place], [address], 10/07/2024 07:07:04 10/06/19 25 10/07/2024 CBC WITH DIFFE RENTI AL/PL ATELE T hematology comments: INFECTION PREVENTION PRACTITIONER Not Available [facility] ([facility]) [address] [facility] [place], [address], 10/07/2024 07:07:04 10/06/19 25 10/07/2024 COMP. METAB OLIC PANEL (14) glucose 129 mg/dL 70-99 above high normal Not Available [facility] ([facility]) [address] [facility] [place], [address], 10/07/2024 07:07:05 10/06/19 25 10/07/2024 COMP. METAB OLIC PANEL (14) BUN 20 mg/dL 8-27 normal Not Available [facility] ([facility]) [address] [facility] [place], [address], 10/07/2024 07:07:05 10/06/19 25 10/07/2024 COMP. METAB OLIC PANEL (14) creatinine 0.68 mg/dL 0.57-1 .00 normal Not Available [facility] ([facility]) [address] [facility] [place], [address], 10/07/2024 07:07:05 10/06/19 25 10/07/2024 COMP. METAB OLIC PANEL (14) eGFR 95 mL/mi n/1.7 3 >59 normal Not Available [facility] ([facility]) [address] [facility] [place], [address], 10/07/2024 07:07:05 10/06/19 25 10/07/2024 COMP. METAB OLIC PANEL (14) BUN/creatini ne ratio 29 12-28 above high normal Not Available [facility] ([facility]) [address] [facility] [place], [address], 10/07/2024 07:07:05 10/06/19 25 10/07/2024 COMP. METAB OLIC PANEL (14) sodium 143 mmol/ L 134-14 4 normal Not Available [facility] ([facility]) [address] [facility] [place], [address], 10/07/2024 07:07:05 10/06/19 25 10/07/2024 COMP. METAB OLIC PANEL (14) potassium 4.3 mmol/ L 3.5-5. 2 normal Not Available [facility] ([facility]) [address] [place], [address], 10/07/2024 07:07:05 10/06/19 25 10/07/2024 COMP. METAB OLIC PANEL (14) chloride 101 mmol/ L 96-106 normal Not Available [facility] ([facility]) [address] [place], [address], 10/07/2024 07:07:05 10/06/19 25 10/07/2024 COMP. METAB OLIC PANEL (14) carbon dioxide, total 27 mmol/ L 20-29 normal Not Available [facility] ([facility]) [address] [place], [address], 10/07/2024 07:07:05 10/06/19 25 10/07/2024 COMP. METAB OLIC PANEL (14) calcium 8.7 mg/dL 8.7-10 .3 normal Not Available [facility] ([facility]) [address] [place], [address], 10/07/2024 07:07:05 10/06/19 25 10/07/2024 COMP. METAB OLIC PANEL (14) protein, total 6.4 g/dL 6.0-8. 5 normal Not Available [facility] ([facility]) [address] [place], [address], 10/07/2024 07:07:05 10/06/19 25 10/07/2024 COMP. METAB OLIC PANEL (14) albumin 4.2 g/dL 3.9-4. 9 normal Not Available [facility] ([facility]) [address] [place], [address], 10/07/2024 07:07:05 10/06/19 25 10/07/2024 COMP. METAB OLIC PANEL (14) globulin, total 2.2 g/dL 1.5-4. 5 Not Available [facility] ([facility]) [address] [facility] [place], [address], 10/07/2024 07:07:05 10/06/19 25 10/07/2024 COMP. METAB OLIC PANEL (14) bilirubin, total 0.4 mg/dL 0.0-1. 2 normal Not Available [facility] ([facility]) [address] [facility] [place], [address], 10/07/2024 07:07:05 10/06/19 25 10/07/2024 COMP. METAB OLIC PANEL (14) alkaline phosphatase 151 IU/L 44-121 above high normal Not Available [facility] ([facility]) [address] [place], [address], 10/07/2024 07:07:05 10/06/19 25 10/07/2024 COMP. METAB OLIC PANEL (14) AST (SGOT) 17 IU/L 0-40 normal Not Available [facility] ([facility]) [address] [place], [address], 10/07/2024 07:07:05 10/06/19 25 10/07/2024 COMP. METAB OLIC PANEL (14) ALT (SGPT) 15 IU/L 0-32 normal Not Available [facility] ([facility]) [address] [place], [address], 10/07/2024 07:07:05 10/06/19 25 10/07/2024 LIPID PANEL cholesterol, total 155 mg/dL 100-19 9 normal Not Available [facility] ([facility]) [address] [place], [address], 10/07/2024 07:07:06 10/06/19 10/07/2024 LIPID PANEL triglyceride s 126 mg/dL 0-149 normal Not Available [facility] ([facility]) [address] [place], [address], 10/07/2024 07:07:06 10/06/19 25 10/07/2024 LIPID PANEL HDL cholesterol 44 mg/dL >39 normal Not Available [facility] ([facility]) [address] [place], [address], 10/07/2024 07:07:06 10/06/19 25 10/07/2024 LIPID PANEL VLDL cholesterol zach 23 mg/dL 5-40 Not Available [facility] ([facility]) [address] [place], [address], 10/07/2024 07:07:06 10/06/19 25 10/07/2024 LIPID PANEL LDL chol calc ([facility]) 88 mg/dL 0-99 Not Available [facility] ([facility]) [address] [place], [address], 10/07/2024 07:07:06 10/06/1910/07/2024 LIPID PANEL LDL calc comment: INFECTION PREVENTION PRACTITIONER Not Available [facility] ([facility]) [address] [place], [address], 10/07/2024 07:07:06 10/06/1910/07/2024 HEMOG LOBIN A1C hemoglobin A1C 6.9 % 4.8-5. 6 above high normal Predi abete s: 5.7 - 6.4 Diabe quinton: >6.4 Glyce aaron contr ol for adult s with diabe quinton: <7.0 Not Available [facility] ([facility]) [address] [place], [address], 10/07/2024 07:07:06 01/20/20 25 01/20/2025 CBC WITH DIFFE RENTI AL/PL ATELE T WBC 7.8 x10e3 /uL 3.4-10 .8 normal Not Available [facility] ([facility]) [address] [place], [address], 01/20/2025 13:10:55 01/20/20 25 01/20/2025 CBC WITH DIFFE RENTI AL/PL ATELE T RBC 4.26 x10e6 /uL 3.77-5 .28 normal Not Available [facility] ([facility]) [address] [facility], [place], [address], 01/20/2025 13:10:55 01/20/20 25 01/20/2025 CBC WITH DIFFE RENTI AL/PL ATELE T hemoglobin 12.7 g/dL 11.1-1 5.9 normal Not Available [facility] ([facility]) [address] [place], [address], 01/20/2025 13:10:55 01/20/20 25 01/20/2025 CBC WITH DIFFE RENTI AL/PL ATELE T hematocrit 40.2 % 34.0-4 6.6 normal Not Available [facility] ([facility]) [address] [place], [address], 01/20/2025 13:10:55 01/20/20 25 01/20/2025 CBC WITH DIFFE RENTI AL/PL ATELE T MCV 94 fL 79-97 normal Not Available [facility] ([facility]) [address] [place], [address], 01/20/2025 13:10:55 01/20/20 25 01/20/2025 CBC WITH DIFFE RENTI AL/PL ATELE T MCH 29.8 pg 26.6-3 3.0 normal Not Available [facility] ([facility]) [address] [place], [address], 01/20/2025 13:10:55 01/20/20 25 01/20/2025 CBC WITH DIFFE RENTI AL/PL ATELE T MCHC 31.6 g/dL 31.5-3 5.7 normal Not Available [facility] ([facility]) [address] [place], [address], 01/20/2025 13:10:55 01/20/20 25 01/20/2025 CBC WITH DIFFE RENTI AL/PL ATELE T RDW 16.0 % 11.7-1 5.4 above high normal Not Available [facility] ([facility]) [address] [place], [address], 01/20/2025 13:10:55 01/20/20 25 01/20/2025 CBC WITH DIFFE RENTI AL/PL ATELE T platelets 222 x10e3 /uL 150-45 0 normal Not Available [facility] ([facility]) [address] [place], [address], 01/20/2025 13:10:55 01/20/20 25 01/20/2025 CBC WITH DIFFE RENTI AL/PL ATELE T neutrophils 74 % not estab. normal Not Available [facility] ([facility]) [address] [place], [address], 01/20/2025 13:10:55 01/20/20 25 01/20/2025 CBC WITH DIFFE RENTI AL/PL ATELE T lymphs 20 % not estab. normal Not Available [facility] ([facility]) [address] [place], [address], 01/20/2025 13:10:55 01/20/20 25 01/20/2025 CBC WITH DIFFE RENTI AL/PL ATELE T monocytes 5 % not estab. normal Not Available [facility] ([facility]) [address] [place], [address], 01/20/2025 13:10:55 01/20/20 25 01/20/2025 CBC WITH DIFFE RENTI AL/PL ATELE T eos 1 % not estab. normal Not Available [facility] ([facility]) [address] [place], [address], 01/20/2025 13:10:55 01/20/20 25 01/20/2025 CBC WITH DIFFE RENTI AL/PL ATELE T basos 0 % not estab. normal Not Available [facility] ([facility]) [address] [facility], [place], [address], 01/20/2025 13:10:55 01/20/20 25 01/20/2025 CBC WITH DIFFE RENTI AL/PL ATELE T immature cells INFECTION PREVENTION PRACTITIONER Not Available [facility] ([facility]) [address] [facility], [place], [address], 01/20/2025 13:10:55 01/20/20 25 01/20/2025 CBC WITH DIFFE RENTI AL/PL ATELE T neutrophils (absolute) 5.7 x10e3 /uL 1.4-7. 0 normal Not Available [facility] ([facility]) [address] [place], [address], 01/20/2025 13:10:55 01/20/20 25 01/20/2025 CBC WITH DIFFE RENTI AL/PL ATELE T lymphs (absolute) 1.5 x10e3 /uL 0.7-3. 1 normal Not Available [facility] ([facility]) [address] [place], [address], 01/20/2025 13:10:55 01/20/20 25 01/20/2025 CBC WITH DIFFE RENTI AL/PL ATELE T monocytes(ab solute) 0.4 x10e3 /uL 0.1-0. 9 normal Not Available [facility] ([facility]) [address] [place], [address], 01/20/2025 13:10:55 01/20/20 25 01/20/2025 CBC WITH DIFFE RENTI AL/PL ATELE T eos (absolute) 0.1 x10e3 /uL 0.0-0. 4 normal Not Available [facility] ([facility]) [address] [facility], [place], [address], 01/20/2025 13:10:55 01/20/20 25 01/20/2025 CBC WITH DIFFE RENTI AL/PL ATELE T baso (absolute) 0.0 x10e3 /uL 0.0-0. 2 normal Not Available [facility] ([facility]) [address] [facility], [place], [address], 01/20/2025 13:10:55 01/20/20 25 01/20/2025 CBC WITH DIFFE RENTI AL/PL ATELE T immature granulocytes 0 % not estab. Not Available [facility] ([facility]) [address] [place], [address], 01/20/2025 13:10:55 01/20/20 25 01/20/2025 CBC WITH DIFFE RENTI AL/PL ATELE T immature grans (abs) 0.0 x10e3 /uL 0.0-0. 1 Not Available [facility] ([facility]) [address] [place], [address], 01/20/2025 13:10:55 01/20/20 25 01/20/2025 CBC WITH DIFFE RENTI AL/PL ATELE T NRBC INFECTION PREVENTION PRACTITIONER Not Available [facility] ([facility]) [address] [place], [address], 01/20/2025 13:10:55 01/20/20 25 01/20/2025 CBC WITH DIFFE RENTI AL/PL ATELE T hematology comments: INFECTION PREVENTION PRACTITIONER Not Available [facility] ([facility]) [address] [place], [address], 01/20/2025 13:10:55 01/20/20 25 01/20/2025 COMP. METAB OLIC PANEL (14) glucose 133 mg/dL 70-99 above high normal Not Available [facility] ([facility]) [address] [place], [address], 01/20/2025 13:10:55 01/20/20 25 01/20/2025 COMP. METAB OLIC PANEL (14) BUN 17 mg/dL 8-27 normal Not Available [facility] ([facility]) [address] [place], [address], 01/20/2025 13:10:55 01/20/20 25 01/20/2025 COMP. METAB OLIC PANEL (14) creatinine 0.76 mg/dL 0.57-1 .00 normal Not Available [facility] ([facility]) [address] [facility] [place], [address], 01/20/2025 13:10:55 01/20/20 25 01/20/2025 COMP. METAB OLIC PANEL (14) eGFR 85 mL/mi n/1.7 3 >59 normal Not Available [facility] ([facility]) [address] [facility] [place], [address], 01/20/2025 13:10:55 01/20/20 25 01/20/2025 COMP. METAB OLIC PANEL (14) BUN/creatini ne ratio 22 12-28 normal Not Available [facility] ([facility]) [address] [facility] [place], [address], 01/20/2025 13:10:55 01/20/20 25 01/20/2025 COMP. METAB OLIC PANEL (14) sodium 139 mmol/ L 134-14 4 normal Not Available [facility] ([facility]) [address] [facility] [place], [address], 01/20/2025 13:10:55 01/20/20 25 01/20/2025 COMP. METAB OLIC PANEL (14) potassium 4.1 mmol/ L 3.5-5. 2 normal Not Available [facility] ([facility]) [address] [facility] [place], [address], 01/20/2025 13:10:55 01/20/20 25 01/20/2025 COMP. METAB OLIC PANEL (14) chloride 96 mmol/ L 96-106 normal Not Available [facility] ([facility]) [address] [place], [address], 01/20/2025 13:10:55 01/20/20 25 01/20/2025 COMP. METAB OLIC PANEL (14) carbon dioxide, total 28 mmol/ L 20-29 normal Not Available [facility] ([facility]) [address] [facility], [place], [address], 01/20/2025 13:10:55 01/20/20 25 01/20/2025 COMP. METAB OLIC PANEL (14) calcium 8.9 mg/dL 8.7-10 .3 normal Not Available [facility] ([facility]) [address] [facility], [place], [address], 01/20/2025 13:10:55 01/20/20 25 01/20/2025 COMP. METAB OLIC PANEL (14) protein, total 6.8 g/dL 6.0-8. 5 normal Not Available [facility] ([facility]) [address] [facility], [place], [address], 01/20/2025 13:10:55 01/20/20 25 01/20/2025 COMP. METAB OLIC PANEL (14) albumin 4.4 g/dL 3.9-4. 9 normal Not Available [facility] ([facility]) [address] [place], [address], 01/20/2025 13:10:55 01/20/20 25 01/20/2025 COMP. METAB OLIC PANEL (14) globulin, total 2.4 g/dL 1.5-4. 5 Not Available [facility] ([facility]) [address] [place], [address], 01/20/2025 13:10:55 01/20/20 25 01/20/2025 COMP. METAB OLIC PANEL (14) bilirubin, total 0.3 mg/dL 0.0-1. 2 normal Not Available [facility] ([facility]) [address] [place], [address], 01/20/2025 13:10:55 01/20/20 25 01/20/2025 COMP. METAB OLIC PANEL (14) alkaline phosphatase 132 IU/L 44-121 above high normal Not Available [facility] ([facility]) [address] [place], [address], 01/20/2025 13:10:55 01/20/20 25 01/20/2025 COMP. METAB OLIC PANEL (14) AST (SGOT) 16 IU/L 0-40 normal Not Available [facility] ([facility]) [address] [place], [address], 01/20/2025 13:10:55 01/20/20 25 01/20/2025 COMP. METAB OLIC PANEL (14) ALT (SGPT) 18 IU/L 0-32 normal Not Available [facility] ([facility]) [address] [place], [address], 01/20/2025 13:10:55 01/20/20 25 01/20/2025 LIPID PANEL cholesterol, total 214 mg/dL 100-19 9 above high normal Not Available [facility] ([facility]) [address] [place], [address], 01/20/2025 13:10:56 01/20/20 25 01/20/2025 LIPID PANEL triglyceride s 135 mg/dL 0-149 normal Not Available [facility] ([facility]) [address] [place], [address], 01/20/2025 13:10:56 01/20/20 25 01/20/2025 LIPID PANEL HDL cholesterol 45 mg/dL >39 normal Not Available [facility] ([facility]) [address] [place], [address], 01/20/2025 13:10:56 01/20/20 25 01/20/2025 LIPID PANEL VLDL cholesterol zach 24 mg/dL 5-40 Not Available [facility] ([facility]) [address] [place], [address], 01/20/2025 13:10:56 01/20/20 25 01/20/2025 LIPID PANEL LDL chol calc ([facility]) 145 mg/dL 0-99 above high normal Not Available [facility] ([facility]) [address] [place], [address], 01/20/2025 13:10:56 01/20/20 25 01/20/2025 LIPID PANEL LDL calc comment: INFECTION PREVENTION PRACTITIONER Not Available [facility] ([facility]) [address] [place], [address], 01/20/2025 13:10:56 01/20/20 25 01/20/2025 ALBUM IN/CR EAT RATIO , ALFONSO Fernando UR creatinine, urine 142.2 mg/dL not estab. normal Not Available [facility] ([facility]) [address] [place], [address], 01/20/2025 13:10:56 01/20/20 25 01/20/2025 ALBUM IN/CR EAT RATIO , ALFONSO Fernando UR albumin, urine 24.5 ug/mL not estab. Not Available [facility] ([facility]) [address] [place], [address], 01/20/2025 13:10:56 01/20/20 25 01/20/2025 ALBUM IN/CR EAT RATIO , MARIANNEO M UR alb/creat ratio 17 mg/g_ creat 0-29 Laura l: 0 - 29 Moder ately incre ased: 30 - 300 Sever hola incre ased: >300 Not Available [facility] ([facility]) [address] [place], [address], 01/20/2025 13:10:56 01/20/20 25 01/20/2025 HEMOG LOBIN A1C hemoglobin A1C 7.4 % 4.8-5. 6 above high normal Predi abete s: 5.7 - 6.4 Diabe quinton: >6.4 Glyce aaron contr ol for adult s with diabe quinton: <7.0 Not Available [facility] ([facility]) [address] [facility], [place], [address], 01/20/2025 13:10:56 01/20/2001/20/2025 PLEAS E NOTE please note Commen t The date and/o r time of colle ction was not indic ated on the requi sitio n as requi red by state and [place] law. The date of recei pt of the speci men was used as the colle ction date if not suppl ied. Not Available [facility] ([facility]) [address] [facility], [place], [address], 01/20/2025 13:10:57 Result Notes None recorded. Problems Name Problem SNOMED Code Status Onset Date Resolution Date Notes Provider Name and Address Organization Details Recorded Time Type 2 diabetes mellitus 68681083 Active 2021 Any Bo APRN [address], [place], [address], [place] - [facility] 2 16:15:36 History of cerebrovascu lar accident without residual deficits 243005581 Active Any Bo APRN [address], [place], [address], [place] [facility] 2 16:15:31 Hypercholest erolemia 34749691 Active 2021 Any Bo APRN [address], [place], [address], [place] [facility] 2 16:16:05 History of malignant neoplasm of lung 107814167 Active 2021 removed right lower lung Magaly Reena [facility], [place] - [facility] 4 13:50:05 Generalized headache 026480577 Active Chava grayson [place] - [facility] 6 15:57:11 Gastroesopha geal reflux disease 791678336 Active Chava Ratliff y [place] - [facility] 6 15:57:24 Chronic obstructive pulmonary disease 41613701 Active Chava [place] [facility] 6 15:57:37 Essential hypertension 01050148 Active Chava Ratliff y [place] [facility] 6 15:57:53 Malignant neoplasm of urinary bladder 072043695 Active 2024 Any Bo, RADON INSPECTOR [address], [place], [address], [place] [facility] 5 11:44:37 Problem Notes None recorded. Procedures Surgical History Date Name Laterality Status Provider Name and Address Organization Details Recorded Time 01/20/20 25 Advance Care Planning completed Flower Sweta [place] - [facility] 01/19/2025 13:51:35 01/20/20 25 Functional Status Assessed completed Flowerramiro Sol [place] - [facility] 01/19/2025 13:51:35 04/26/20 24 Date of Last Mammogram completed Magaly Valles [place] - [facility] 10/06/2024 10:40:53 04/11/20 19 Cancer Surgery completed Flower Sweta [place] - [facility] 01/19/2025 13:52:29 04/11/20 19 lobectomy [...] B/P less than 130 mm Hg completed [facility] [place] - [facility] 10/07/2018 15:28:11 10/06/19 19 Diastolic B/P less than 80 mm Hg completed Marah Leblanc [place] - [facility] 10/07/2018 15:28:14 02/16/20 15 Date of Last Pap Smear completed Chava ROBL[place] - [facility] 09/23/2016 15:47:00 02/02/19 88 Tubal Ligation completed Flower Sol [place] - [facility] 01/19/2025 13:52:29 10/05/18 70 Tonsillectomy completed [place] - [facility] 01/19/2025 13:52:29 procedure on urinary bladder completed Magaly Shalinikelly [place] - [facility] 10/06/2024 10:40:18 Breast Biopsy completed Chava Beach [place] - [facility] 09/23/2016 15:53:29 Cholecystectomy, laparoscopic completed Chava [place] - [facility] 09/23/2016 15:53:41 Colposcopy completed [place] - [facility] 09/23/2016 15:54:18 Endometrial Biopsy completed Chava [place] - [facility] 09/23/2016 15:54:41 Unlisted procedure stomach completed [place] - [facility] 09/23/2016 15:54:55 Tonsillectomy completed [place]ava [place] - [facility] 09/23/2016 15:55:10 Tubal Ligation completed Chava ROBLERO - [facility] 09/23/2016 15:55:22 Imaging Results None recorded. [...] Disconti nued on: 11/30/19 14 9:55AM;U ser: [email or web address] ryh;Est. Completi on: 10/21/19 14;Indic ation: Seborrhe ic Dermatit is - (12.3743 00) Not Available Not Available Not Available [...] User: norma crawford;Est. Completi on: 01/05/20 15;Pharm Trent ied: 08/07/20 14 10:35AM Not Available Not [...] Not Available Not Available No t Available [employer] 5 mg-325 mg tablet Take 1 tablet [...] completed Not Available Not Available Not Available [employer] 1 q12h prn pain 09/27 completed norco 5 /325mg;R ecorded Status: Recorded on: 08/28/20 15 1:09PM;U ser: markesbe ryh;Est. Completi on: 09/27/20 15;Indic ation: - (-5) Not Available Not Available Not Available meloxicam one daily 11/30 completed meloxica m 15 mg.;Milan rded Status: Recorded on: 11/08/19 14 8:28PM;D iscontin ued Status: Disconti nued on: 11/30/19 14 9:55AM;U ser: [email or web address]; Est. Completi on: 01/08/20 14;Indic ation: pain [...] Disconti nued on: 09/09/20 10 3:50PM;U ser: loli;[facility]enny st. Completi on: 01/23/20 10;Indic ation: - (-5) Not Available Not Available Not Available Ceftin 1 bid 08/28 completed ceftin 500;Milan rded Status: Recorded on: 08/28/20 15 1:09PM;D iscontin ued Status: Disconti nued on: 08/28/20 15 1:27PM;U ser: sawyerbe yvette;Est. Completi on: 09/04/20 15;Indic ation: - (-5) [...] Disconti nued on: 11/30/19 14 9:55AM;U ser: sawyerbe yvette;Est. Completi on: 12/30/19 14;Indic ation: - (-5) [...] Disconti nued on: 09/09/20 10 3:52PM;U ser: sawyerbe ryalex;Est. Completi on: 09/15/20 08;Indic ation: - [...] Disconti nued on: 09/09/20 10 3:58PM;U ser: irene;Genny st. Completi on: 08/02/20 11;Indic ation: - [...] 12 9:07AM;U ser: markesbe ryh;Est. Completi on: 10/08/19 12;Indic ation: - (-5);Serena [...] Disconti nued on: 05/30/20 16 6:30PM;U ser: markesbe ryalex;Est. Completi on: 09/27/20 15;Indic ation: Smoking [...] Prescrib ed on: 08/28/20 15 1:27PM;U ser: marklindybe yvette;Est. Completi on: 11/26/19 16;Pharm acyVerif ied: [...] Completi on: 09/06/20 14;Indic ation: Pain - (13.9719 91) Not Available Not Available Not Available Eliquis [...] Available No t Available Easy Comfort Pen [place] 31 gauge x 1/4 USE DAILY with [...] Available Not Available Not Available Flucelvax Quad 2709-5479 (PF) 60 mcg (15 mcg x 4)/0.5 mL IM syringe 04/11 completed Not Available Not Available Not Available Omnipod Dash Pods (Gen 4) subcutane ous cartridge CHANGE POD EVERY 2 TO 3 DAYS DIRECTED active Not Available Not Available No t Available FreeStyle Diana 2 Sensor kit DIRECTED CHANGING EVERY 14 DAYS active Not Available Not Available No t Available FreeStyle Diana 2 [place] USE DIRECTED active Not Available Not Available [...] Updated DateTime 5 157.48 cm 42.3 kg/m2 272314. 84 g 70 /min 97.9 [degF] 18 /min 93 % 93 % 124 mm[Hg] 78 mm[Hg] Magaly Valles [place] - [facility] 5 10:36:07 Date Recorded Body height Respiratory rate Body mass index (BMI) Body weight Body temperature Heart rate Oxygen saturation Oxygen saturation in Arterial blood by Pulse oximetry Systolic blood pressure Diastolic blood pressure Provider Name and Address Organization Details Last Updated DateTime 5 157.48 cm 18 /min 41.3 kg/m2 735677. 88 g 98.9 [degF] 66 /min 93 % 93 % 120 mm[Hg] 80 mm[Hg] Magaly [place] - [facility] 5 15:29:09 Date Recorded Body height Body mass index (BMI) Body weight Body temperature Heart rate Oxygen saturation Oxygen saturation in Arterial blood by Pulse oximetry Respiratory rate Systolic blood pressure Diastolic blood pressure Provider Name and Address Organization Details Last Updated DateTime 5 157.48 cm 41.2 kg/m2 736861. 28 g 98.2 [degF] 89 /min 93 % 93 % 18 /min 122 mm[Hg] 74 mm[Hg] Flower ROBLERO - [facility] 5 14:05:35 Date Recorded Body height Body mass index (BMI) Body weight Body temperature Heart rate Oxygen saturation Oxygen saturation in Arterial blood by Pulse oximetry Respiratory rate Systolic blood pressure Diastolic blood pressure Provider Name and Address Organization Details Last Updated DateTime 5 157.48 cm 42.1 kg/m2 908674. 25 g 98.1 [degF] 71 /min 93 % 93 % 18 /min 130 mm[Hg] 82 mm[Hg] Flower ROBLERO - [facility] 5 14:56:22 Date Recorded Body height Body mass index (BMI) Body weight Heart rate Oxygen saturation Oxygen saturation in Arterial blood by Pulse oximetry Respiratory rate Systolic blood pressure Diastolic blood pressure Provider Name and Address Organization Details Last Updated DateTime 5 157.48 cm 42.1 kg/m2 466076. 25 g 89 /min 92 % 92 % 22 /min 126 mm[Hg] 78 mm[Hg] Flower ROBLERO [facility] 5 16:06:37 Social History Question Answer Notes LastModified by [facility] ion Details LastModified Time Tobacco Smoking Status Former Smoker Magaly Reena laguna [facility] 04/11/2022 16:07:03 Do You Have An Advance Directive? No Information not available 04/11/2022 Are You Blind Or Do You Have Difficulty Seeing? No [email or web address] Information not available 02/11/2018 What Is Your Level Of Caffeine Consumption? Moderate Information not available 01/19/2025 How Much Tobacco Do You Chew? None [email or web address] Information not available 02/11/2018 Are You Deaf Or Do You Have Serious Difficulty Hearing? No [email or web address] Information not available 02/11/2018 What Type Of Diet Are You Following? [email or web address] Information not available 01/19/2025 Which Illicit Or Recreational Drugs Have You Used? None Information not available 02/11/2018 What Is The Highest Grade Or Level Of School You Have Completed Or The Highest Degree You Have Received? [id number] Information not available 04/11/2022 How Many Days Of Moderate To Strenuous Exercise, Like A Brisk Walk, Did You Do In The Last 7 Days? 1 [email or web address] Information not available 02/11/2018 On Those Days That You Engage In Moderate To Strenuous Exercise, How Many Minutes, On Average, Do You Exercise? 1 [email or web address] Information not available 02/11/2018 Have There Been Any Changes To Your Family Or Social Situation? No Information not available 04/11/2022 How Hard Is It For You To Pay For The Very Basics Like Food, Housing, Medical Care, And Heating? TI13275-6 [email or web address] Information not available 02/11/2018 What Is The Fluoride Status Of Your Home? Unknown Information not available 04/11/2022 When Did You Quit Smoking? 6-10yearssin [email or web address] tte Information not available 01/19/2025 Hard Of Hearing Or Deaf In One Or Both Ears? No [email or web address] Information not available 02/04/2018 Legally Blind In One Or Both Eyes? No [email or web address] Information not available 02/04/2018 Live Alone Or With Others? With Others [email or web address] Information not available 02/04/2018 Do You Have A Medical Power Of Publications Sales Representative? No Information not available 04/11/2022 What Was [...] available 01/19/2025 What Is Your Relationship Status? [email or web address] Information not available 12/01/2018 Do You Use Your Seat Belt Or Car Seat Routinely? Yes Information not available 01/19/2025 Seat Belts Used Routinely Yes [email or web address] Information not available 02/11/2018 Are You Sexually Active? No Information not available 01/19/2025 Smoke Alarm In Home Yes [email or web address] Information not available 02/04/2018 Do You Have [...] Has Tobacco Cessation Counseling Been Provided? Yes [email or web address] Information not available 02/11/2018 On What Date Was Tobacco Cessation Counseling Provided? 12/01/2018 [email or web address] Information not available 12/01/2018 How Many Years Have You Smoked Tobacco? 44 Stopped In 2018 Information not available 05/31/2024 Do You Have Difficulty Walking Or Climbing Stairs? No [email or web address] Information not available 02/11/2018 Sex: Female Functional [...] 04/11/2022 Are you able to walk? YESWOREST [email or web address] Information not available 02/11/2018 Do you have difficulty doing errands alone? No [email or web address] Information not available 02/11/2018 Are you able to care for yourself? Yes [email or web address] Information n ot available 02/04/2018 Do you have difficulty dressing or bathing? No [email or web address] Information not available 02/11/2018 Do you or have you ever used e-cigarettes or vape? Former user of electronic cigarettes Information not available 01/19/2025 What is your exercise level? None Information not available 02/11/2018 Mental Status Question Answer Note LastModified by Organizat ion Details LastModified Time Do you feel stressed (tense, restless, nervous, or anxious, or unable to sleep at night)? [id number] Information not available 01/19/2025 Do you have difficulty concentrating, remembering or making decisions? No [email or web address] Information no t available 02/11/2018 Family History [...] unspecified formulation 0 completed F[place] [facility] 09/11/2023 15:28:59 Tdap 5 completed [place] [facility] 01/19/2025 16:50:14 Td (adult), 2 Lf tetanus toxoid, preservative free, adsorbed 3 completed Magaly Ste[place] [facility] 10/13/2022 11:30:52 Influenza, split virus, quadrivalent, PF 1 completed Mag[place] [facility] 10/13/2022 11:30:52 pneumococcal polysaccharide PPV23 1 completed Magaly [place] [facility] 10/13/2022 11:30:52 Influenza, high-dose, quadrivalent, PF 3 completed F[place] Sw[place] [facility] 09/11/2023 15:28:59 Past Encounters Encounter ID Performer Location Encounter Start Date Encounter Closed Date Diagnosis/Indication Diagnosis SNOMED-CT Code Diagnosis ICD10 Code Diagnosis Note [id number] Chava Beach MD [facility] [address] [place] [address] 07/28/2016 12:40:42 07/28/2016 15:32:09 Asthma 678720896 J45.909 Acute bronchitis 5695712 2 J20.9 Anxiety 08745609 F41.9 Chronic back pain 205735 002 G89.29 [id number] Chava Beach MD [address] [place] [address] 09/24/2016 10:22:46 09/24/2016 11:24:36 Gastroesophageal reflux disease 211570320 K21.9 Chronic ob structive pulmonary disease 45662233 J44.9 Acute bronchitis 1596709 2 J20.9 Abdominal pain 06614611 R10.9 Cough 99704286 R05 [id number] Chava Beach MD [address] [place] [address] 01/20/2018 14:22:17 01/20/2018 15:45:08 Chronic obstructive pulmonary disease 65855619 J44.9 Generalized headache 162 419059 R51 Gastroesop hageal reflux disease 249763383 K21.9 Essential hypertension 28604634 I10 Asthma 048348485 J45.90 9 Low back pain 136648495 M54.5 [id number] Dair Adam APRN [address] [place] [address] 02/04/2018 14:23:31 02/04/2018 16:39:19 Body mass index 30+ - obesity 139178691 Z68.38 Cough 53782844 R05 Hyperglycemia 84356820 R 73.9 Dizziness 206853181 R42 Fatigue 38697382 R53.83 Viral screening 95247765 4 Z11.59 Smoker 87797028 F17.066 [id number] Chava Beach MD [address] [place] [address] 02/09/2018 11:01:25 02/09/2018 12:47:16 Upper respiratory infection 37480236 J06.9 Cough 42757780 R05 Chronic ob structive pulmonary disease 32648147 J44.0 Dyspnea 526572798 R06.02 Decreased breath sounds 99403047 R09.89 [id number] Chava Beach MD [address] [place] [address] 02/16/2018 12:55:09 02/16/2018 14:04:12 Chronic obstructive pulmonary disease 98550139 J44.0 Bronchitis 61814626 J40 [id number] Chava Beach MD [facility] [address] [place], [place] [address] [place] [address] 10/06/2018 14:43:16 10/06/2018 16:28:13 Chronic obstructive pulmonary disease 62681549 J44.0 Edema 957170729 R60.9 Upper resp iratory infection 43255690 J06.9 Harsh breath sounds 4765 3008 R09.89 [id number] Chava Beach MD [address] [place] [address] 10/13/2018 08:34:14 10/13/2018 10:17:51 Chronic obstructive pulmonary disease 63462047 J44.0 Generalized headache 162 407619 R51 Gastroesop hageal reflux disease 308388276 K21.9 Essential hypertension 83061472 I10 Anxiety 04183500 F41.9 [id number] Chava Beach MD [facility] [address] [place] [address] [place] [address] 12/01/2018 10:02:07 12/01/2018 11:51:11 Chronic obstructive pulmonary disease 61751377 J44.0 Injury of tendon of the rotator cuff of shoulder 110349752 S46.001A Upper resp iratory infection 32975573 J06.9 Dizziness 101378420 R42 Arthritis 4320915 M19.90 Trying to give up smoking 515842613 Z72.0 [id number] Any Bo APRN [address] [address] 04/11/2022 15:37:57 05/26/2022 14:09:55 Chronic obstructive pulmonary disease 44494713 J44.0 continue meds Essential hypertension 93263331 I10 continue plan of care Gastroesop hageal reflux disease 567229387 K21.9 continue plan of care Generalized headache 162 952460 R51.9 History of cerebrovascular accident without residual deficits 519131368 Z86.73 History of malignant neoplasm of lung 963186851 Z85.118 keep follow up appointmen ts with pulmonolog y Hypercholesterolemia 136 65044 E78.00 labs Diabetes mellitus 171936 09 E11.9 gave sample of diana will call pharm to check pricing on meds,Levy jones, pt doing well at this time. This [...] any questions or concerns arise. Seasonal allergy 5672898 04 J30.2 [id number] Any Bo [address] [address] 10/13/2022 11:15:48 10/13/2022 12:38:10 Type 2 diabetes mellitus 73037381 E11.9 Essential hypertension 58797595 I10 continue plan of care Hypercholesterolemia 136 26897 E78.00 labs Chronic ob structive pulmonary disease 32943257 J44.0 continue meds Gastroesop hageal reflux disease 013921551 K21.9 continue plan of care Bilateral cramp of muscle of lower limbs 7515550780 3125125 R25.2 History of cerebrovascular accident without residual deficits 730659099 Z86.73 History of malignant neoplasm of lung 928353394 Z85.118 keep follow up appointmen ts with pulmonolog y Anxiety 14282059 F41.9 [id number] Any Bo RADON INSPECTOR [address] [address] 10/21/2022 15:56:18 10/21/2022 16:25:05 Anemia 805527204 D64.9 check labs, pt refused stool. will think about colonoscop ydiscussed the importance of having a colonoscop y with pt [id number] Any Bo RADON INSPECTOR [address] [address] 12/02/2022 11:14:57 12/02/2022 11:41:22 Acute right otitis media 613958090 H66.91 stop cefdinir start amoxicilli n Acute otitis externa 302 81915 H60.897 [id number] Any Bo [address] [address] 04/24/2023 15:53:16 04/24/2023 16:53:20 Type 2 diabetes mellitus 09792728 E11.9 forms filled out and given back to pt [id number] Any Bo [address] [address] 09/11/2023 15:16:01 09/11/2023 15:50:13 Type 2 diabetes mellitus 42573440 E11.9 forms filled out and given back to ptobtain labs from pcp [id number] Any Bo [address] [address] 05/31/2024 13:26:44 05/31/2024 14:30:51 Type 2 diabetes mellitus 56345414 E11.9 continue meds and dietwill add trulicity Essential hypertension 42925115 I10 continue plan of care Body mass index 30+ - obesity 889710672 Z68.41 41.5 Obesity 146308247 E66.9 Osteoporos is screening declined 9210041085 96255 Z53.20 Headache 39361972 R51.9 return if symptoms worsen or do not improve [id number] Any Bo [address] [address] 10/06/2024 10:23:27 10/06/2024 12:04:53 Type 2 diabetes mellitus 27678056 E11.9 continue meds and diethold trulicity until ok with urology Essential hypertension 03148395 I10 continue plan of care Hypercholesterolemia 136 79677 E78.00 labs [id number] Any Bo [address] [address] 01/13/2025 14:57:10 01/13/2025 16:00:14 Type 2 diabetes mellitus 95347859 E11.9 continue meds and diet Biomedical equipment procedure 340740368 Z46.81 [id number] Any Bo [address] [address] 01/19/2025 13:45:16 01/19/2025 15:14:08 Adult health examination 190004464 Z00.00 Depression screening 171 789395 Z13.31 A depression screening was completed via a standardiz ed screening tool. 5 minutes were spent discussing depression screening results and risk factors. Examinatio n of blood pressure 175130693 Z01.30 Diet education 35654257 Z71.3 Counseling 279193992 Z71 .82 Exercise counseling . Patient encouraged to exercise 30 minutes 5 days a week. [facility] for falls 468823368 Z91.81 STEADI FAST screening score of __0___. Advance care planning 71 2822848 Z71.89 Screening for osteoporosis 417586590 Z13.820 Medication declined 4061 91717 Z28.21 Essential hypertension 42861785 I10 continue plan of care History of cerebrovascular accident without residual deficits 422988902 Z86.73 Hypercholesterolemia 136 91974 E78.00 labs Type 2 shelton betes mellitus 93092958 E11.9 continue meds and diet Malignant neoplasm of urinary bladder 416361211 C67.9 [id number] Any Bo [address] [address] 03/24/2025 14:37:12 03/24/2025 15:41:48 Cyst of skin 600443475 L72.9 packing removed.ed ucated how to do dressing changeclea ariana with salinepack ed with saline soaked gauze and sterle qtipcovere d with telfa and wrapped with kerlexpt tolerated well [id number] Any Bo [address] [address] 03/28/2025 15:58:20 03/28/2025 17:20:11 Cyst of skin 935106568 L72.9 packing removed.ed ucated how to do [...] DCHYES Erin Jung 04/11/2022 1 [place] [id number] Erin Jung [id number] Erin Jung 05/31/2024 1 [employer] (MEDICARE REPLACEMENT/A DVANTAGE - PPO) Erin Jung [id number] Erin Jung 10/06/2024 1 [employer] - GOLD PLUS (MEDICARE REPLACEMENT/A DVANTAGE - HMO) Erin Jung [id number] Erin Jung 03/23/2025 1 [employer] - GOLD PLUS (MEDICARE REPLACEMENT/A DVANTAGE - HMO) Erin Jung [id number] Erin Jung 03/23/2025 [place] Erin Jung [id number] Erin Jung 01/19/2025 1 [employer] (MEDICARE SUPPLEMENT) Erin Jung [id number] Erin Jung 04/02/2022 1 [facility] [id number] Erin Jung [id number] Erin Jung Notes Date Note Type Note Provider Name and Address Organization Details Recorded Time 10/06/2024 text/html 69 year old female who presents to the office today for adiabetic follow up for her CGM supplies. pt states she needs labs and cgm refills. pt states the cgm is working well. Any Bo, RADON INSPECTOR [address], [place], [address], [place] [facility] 10/06/2024 14:01:42 01/13/2025 text/html 69 year old female who presents to the office today for a follow up on diabetes has concerns of low blood sugar with freestyle diana 3,pt called yesterday and requested freestyle diana 2 to be refilled.pt has not started Trulicity as of todaypt states at night her glucose is dropping into the 50's Any BarlowFABIÁN lebron [address], [place], [address], [place] - [facility] 01/13/2025 15:54:46 01/19/2025 text/html 69 yr old female presents for a Medicare annual wellness exam. pt states she is having resection on due to bladder tumors. needs labs for chronic dx such as dm,lipids,copd,c va, bladder ca,lung ca Carolinafermin FABIÁN lebron [address], [place], [address], [place] - [facility] 03/07/2025 10:27:19 03/24/2025 text/html 69 yr old female presents for a dressing change to recent cyst removal site to right upper arm on by dr blount. pt states dressing has not been changed Carolinafermin Bo APRN [address], [place], [address], [place] [facility] 03/24/2025 16:41:41 03/28/2025 text/html 69 yr old female presents for a right arm wound recheck/dressing change. pt states she tolerated dressing change well over the weekend Carolinafermin FABIÁN lebron [address], [place], [address], [place] - [facility] 03/28/2025 16:49:56 OBGyn Episode No OBEpisode recorded.
--- OUTSIDE RECORDS SUMMARY | 2025-03-31 07:52 | XMS_ITS | Encounter Summary ---
Author Organization [facility] Address [address] [place] [address] Care Team Providers Care Senior User Experience Architect Name Role Phone Orlando Zhang MD Primary Care Provider [phone] Source Comments This information has been disclosed [...] release of HIV test results or diagnoses. [id number] Health Encounter Details Date Type Department Care Team (Late st Contact Info) Description 02/14/2025 Telephone [facility] [place] [facility] [address] [place] [id number] Jarod Jones MA Social History Tobacco Use Types Packs/Day Years Used Date Smoking Tobacco: Former Cigarettes 1 47 Smokeless Tobacco: Never Comments:currently 1ppd, on Chanti 2019 Alcohol Use Standard Drinks/Week Comments No 0 (1 standard drink = 0.6 oz pur e alcohol) Utilities Answer Date Recorded In the past 12 months has [employer], gas, oil, or water company threatened to [...] any time in the past 12 m [facility], were you homeless or living in [...] on filedocumented in this encounter Care Teams Senior User Experience Architect Relationship Specialty Start Date End Date Orlando Zhang MD [address] [place] [address] PCP - General Family Medicine 03/01/19 documented as of this encounter
--- OUTSIDE RECORDS SUMMARY | 2025-03-31 07:52 | XMS_ITS ---
Author Organization [facility] Address [address] [place] [address] Care Team Providers Care Ship Mate Name Role Phone Orlando Zhang MD Primary Care Provider [phone] Active Problems Problem Noted Date Diagnosed Date Bladder mass 06/30/2024 Calculus of ureter 06/30/2024 Lung nodule 04/04/2019 Overview (04/04/2019): Added automatically from request for surgery [id number] Malignant neoplasm of lower lobe of right lung 0 03/31/2019 Cancer Staging:Clinical: Unsigned Pathologic stage from 04/28/2019:Stage IA3(pT1c, pN0, cM0) - Signed by Ruma Yang MD on 04/28/[address] of the chest 03/09/2019 Overview (03/09/2019): Added automatically from request for surgery [id number] Current Treatment and Therapy Plans No current [...]
--- OUTSIDE RECORDS SUMMARY | 2025-03-31 07:52 | XMS_ITS | Encounter Summary ---
Author Organization [facility] Address [address] [place] [address] Care Team Providers Care Vp Of Product Name Role Phone Orlando Zhang MD Primary Care Provider [phone] Source Comments This information has been disclosed [...] release of HIV test results or diagnoses. [id number] Health Reason for Visit * Reason Comments Procedure Procedure Informatio n Request Encounter Details Date Type Department Care Team (Late st Contact Info) Description 01/17/2025 Telephone [facility] [address] [address] Trevon Grant MD [address] [place] [address] Procedure (Procedure Information Request ) Social History Tobacco Use Types Packs/Day Years Used Date Smoking Tobacco: Former Cigarettes 1 47 Smokeless Tobacco: Never Comments:currently 1ppd, on Chanti 2019 Alcohol Use Standard Drinks/Week Comments No 0 (1 standard drink = 0.6 oz pur e alcohol) Utilities Answer Date Recorded In the past 12 months has [employer] electric, gas, oil, or water company threatened [...] any time in the past 12 m [facility], were you homeless or living in a long-term (including now)? No 01/24/2025 Comments No Sex [...] on filedocumented in this encounter Care Teams Vp Of Product Relationship Specialty Start Date End Date Orlando Zhang MD [address] [place] [address] PCP - General Family Medicine 03/01/19 documented as of this encounter
--- OUTSIDE RECORDS SUMMARY | 2025-03-31 07:52 | XMS_ITS ---
Author Organization [facility] Care Team Providers Care Grinder And Honer Operator Automatic Name Role Phone Aaron Cornejo Unavailable Unavailable Allergies and adverse reactions Code CodeSystem Substance Reaction Severity StartDate Concern Status 3355 RXNORM Diclofenac Unknown 10/31/2019 active Care Team Name Role Address Phone Organization Dates Aaron Cornejo PCP [address], [address], [place] (Office): : [facility] 10/31/2019 - 11/10/2019 Immunizations Immunization Status Vaccine Details Vaccine Code CodeSystem Date Notes TB 1 Step Mantoux (PPD) completed tuberculin skin test; unspecified formulation lotNumber: [id number] expiry: 03/21/2021 Mfg: Tubersol Given 0.1 ml [...] ACQUIRED ABSENCE OF LUNG [PART OF] [address] active 2 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 [address] active 3 ACUTE AND CHRONIC RESPIRATORY FAILURE WITH HYPOXIA [address] active 4 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 [address] active 5 CHRONIC OBSTRUCTIVE PULMONARY DISEASE, UNSPECIFIED [address] active 6 GASTRO-ESOPHAGE AL REFLUX DISEASE WITHOUT ESOPHAGITIS [address] active 7 HYPOTHYROIDISM, UNSPECIFIED [address] active 8 OBESITY, UNSPECIFIED [address] active 9 PERSONAL HISTORY OF OTHER MALIGNANT NEOPLASM OF BRONCHUS AND LUNG [address] active 10 PERSONAL HISTORY OF OTHER VENOUS THROMBOSIS AND EMBOLISM [address] active 11 PLEURAL EFFUSION IN OTHER CONDITIONS CLASSIFIED ELSEWHERE [address] active 12 UNSPECIFIED DIASTOLIC (CONGESTIVE) HEART FAILURE [address] active Reason for Referral No Reasons for Referral Entered Social History Social History Observation Description Start Date End Date Code Code System Current Smoking Status Tobacco smoking consumption unknown 828776076 SNOMED CT Sex Assigned At Female 1955 14207-0 [facility] Gender Identity Vital Signs Code Code System Vitals Name Values and Units Timing Information 00824-0 [facility] O2 % BldC Oximetry Value=89.0 Units= % 11/10/2019 17255-2 INC Pain Level Value=0.0 11/10/2019 9279-1 LOINC Respiratory Rate Value=18.0 Units=/m in 11/10/2019 8462-4 LOINC Blood Pressure-Diastolic Value=70 Un its=mmHg 11/10/2019 8480-6 LOINC Blood Pressure-Systolic Krvzg=007 Un its=mmHg 11/10/2019 8310-5 LOINC Body Temperature Value=98.1 Units= F 11/10/2019 8867-4 LOINC Heart rate Value=82.0 Units=/min 03/2020 60076-6 LOINC Weight Ypwvo=234.8 Units=Lbs 01/2020 2339-0 LOINC Blood Sugar Mclxm=771.0 Units=mg/dL 11/07/2019 8302-2 LOINC Height Value=66.0 Units=Inches 11/01/2019
--- OUTSIDE RECORDS SUMMARY | 2025-03-31 07:52 | XMS_ITS | Clinical Summary ---
Author Organization [facility] Address [address] [facility] [address] [id number] Phone Care Team Providers Care Arc And Gas Welder Name Role Phone Camelia Patterson MD [phone] Conditions or Problems No information available. Medications No information available. Medications Administered No information available. Allergies, Adverse Reactions, Alerts No information available. Results No information available. Plan of Care No information available. Procedures No information available. Vital Signs No information available. Immunizations No information available. Advance Directives No information available.
--- OUTSIDE RECORDS SUMMARY | 2025-03-31 07:52 | XMS_ITS | Continuity of Care Document ---
Author Organization [facility], [facility] Address [address] [place] [address] Care Team Providers Care Shadowgraph Scale Operator Name Role Phone ANY BO Primary Care Provider Unavailabl e Assessment No [...] Details Recorded Time Type 2 diabetes mellitus 30817645 Active 2021 Any Bo APRN [address], [place], [address], [facility] 2 16:15:36 History of cerebrovascu lar accident without residual deficits 966968623 Active Any Bo APRN [address], [place], [address], [facility] 2 16:15:31 Hypercholest erolemia 73538301 Active 2021 Any Bo APRN [address], [place], [address], [facility] 2 16:16:05 History of malignant neoplasm of lung 265953602 Active 2021 removed right lower lung Magaly Stears null, [place] - [facility] 4 13:50:05 Generalized headache 866991687 Active Chava grayson null, [place] - [facility] 6 15:57:11 Gastroesopha geal reflux disease 540171755 Active Chava grayson null, [place] - [facility] 6 15:57:24 Chronic obstructive pulmonary disease 94841096 Active Chava grayson null, [place] - [facility] 6 15:57:37 Essential hypertension 41138366 Active Chava grayson null, [place] - [facility] 6 15:57:53 Malignant neoplasm of urinary bladder 389305777 Active 2024 Any Barlowbhavanisanjay, BEHAVIORAL SERVICES TECH [address], [place], [address], [place] - [facility] 11:44:37 Problem Notes [...] of Last Pap Smear completed [place] - [facility] 09/23/2016 15:47:00 02/02/19 88 Tubal Ligation completed [place] - [facility] 01/19/2025 13:52:29 10/05/18 70 Tonsillectomy completed [place] - [facility] 01/19/2025 13:52:29 procedure on urinary bladder completed Magaly Valles [place] - [facility] 10/06/2024 10:40:18 Breast Biopsy completed [place] - [facility] 09/23/2016 15:53:29 Cholecystectomy, laparoscopic completed Chava [place] [facility] 09/23/2016 15:53:[address] [place] [facility] 09/23/2016 15:54:18 Endometrial Biopsy completed [place] [facility] 09/23/2016 15:54:41 Unlisted procedure stomach completed Chava [place] - [facility] 09/23/2016 15:54:55 Tonsillectomy completed [place] - [facility] 09/23/2016 15:55:10 Tubal Ligation completed [facility]ava [place] - [facility] 09/23/2016 15:55:22 Imaging Results None recorded. [...] Not Available Not Available No t Available Milan 5 mg-325 mg tablet Take 1 tablet [...] completed Not Available Not Available Not Available Milan 1 q12h prn pain 09/27 completed norco [...] Ricei on: 09/06/20 14;Indic ation: Pain - (16.0853 00) Not Available Not Available Not Available [...] Available No t Available Easy Comfort Pen [place] 31 gauge x 1/4 USE DAILY with [...] Available Not Available Not Available Flucelvax Quad 4094-4707 (PF) 60 mcg (15 mcg x 4)/0.5 mL IM syringe 04/11 completed Not Available Not Available Not Available Omnipod Dash Pods (Gen 4) subcutane ous cartridge CHANGE POD EVERY 2 TO 3 DAYS DIRECTED active Not Available Not Available No t Available FreeStyle Diana 2 Sensor kit DIRECTED CHANGING EVERY 14 DAYS active Not Available Not Available No t Available FreeStyle Diana 2 Lawrence USE DIRECTED active Not Available Not Available [...] Updated DateTime 5 157.48 cm 42.1 kg/m2 431824. 25 g 98.1 [degF] 71 /min 93 % 93 % 18 /min 130 mm[Hg] 82 mm[Hg] [place] - [facility] 5 14:56:22 Social History Question Answer Notes LastModified by [...] How Much Tobacco Do You Chew? None [email or web address] Information not available 02/11/2018 Are You Deaf Or Do You Have Serious Difficulty Hearing? No [email or web address] Information not available 02/11/2018 What Type Of Diet Are You Following? DIABETIC Information not available 01/19/2025 Which Illicit Or Recreational Drugs Have You Used? None [email or web address] Information not available 02/11/2018 What Is The Highest Grade Or Level Of School You Have Completed Or The Highest Degree You Have Received? [id number] Information not available 04/11/2022 How Many Days Of Moderate To Strenuous Exercise, Like A Brisk Walk, Did You Do In The Last 7 Days? 1 [email or web address] Information not available 02/11/2018 On Those Days That You Engage In Moderate To Strenuous Exercise, How Many Minutes, On Average, Do You Exercise? 1 Information not available 02/11/2018 Have There Been Any Changes To Your Family Or Social Situation? No Information not available 04/11/2022 How Hard Is It For You To Pay For The Very Basics Like Food, Housing, Medical Care, And Heating? [id number] [email or web address] Information not available 02/11/2018 What Is The Fluoride Status Of Your Home? Unknown Information not available 04/11/2022 When Did You Quit Smoking? 6-10yearssin celastcigare tte Information not available 01/19/2025 Hard Of Hearing Or Deaf In One Or Both Ears? No [email or web address] Information not available 02/04/2018 Legally Blind In One Or Both Eyes? No Information not available 02/04/2018 Live Alone Or With Others? With Others [email or web address] Information not available 02/04/2018 Do You Have A Medical Power Of Assembler Wet Wash? No Information not available 04/11/2022 What Was [...] available 01/19/2025 What Is Your Relationship Status? [email or web address] Information not available 12/01/2018 Do You Use Your Seat Belt Or Car Seat Routinely? Yes Information not available 01/19/2025 Seat Belts Used Routinely Yes [email or web address] Information not available 02/11/2018 Are You Sexually Active? No Information not available 01/19/2025 Smoke Alarm In Home Yes [email or web address] Information not available 02/04/2018 Do You Have [...] Has Tobacco Cessation Counseling Been Provided? Yes [email or web address] Information not available 02/11/2018 On What Date Was Tobacco Cessation Counseling Provided? 12/01/2018 [email or web address] Information not available 12/01/2018 How Many Years Have You Smoked Tobacco? 44 Stopped In 2019 Information not available 05/31/2024 Do You Have Difficulty Walking Or Climbing Stairs? No [email or web address] Information not available 02/11/2018 Sex: Female Functional [...] 04/11/2022 Are you able to walk? YESWOREST Information not available 02/11/2018 Do you have difficulty doing errands alone? No [email or web address] Information not available 02/11/2018 Are you able to care for yourself? Yes [email or web address] Information n ot available 02/04/2018 Do you have difficulty dressing or bathing? No [email or web address] Information not available 02/11/2018 Do you or have you ever used e-cigarettes or vape? Former user of electronic cigarettes Information not available 01/19/2025 What is your exercise level? None Information not available 02/11/2018 Mental Status Question Answer Note LastModified by Organizat ion Details LastModified Time Do you feel stressed (tense, restless, nervous, or anxious, or unable to sleep at night)? [id number] Information not available 01/19/2025 Do you have difficulty concentrating, remembering or making decisions? No [email or web address] Information no t available 02/11/2018 Family History [...] available 2024 13:52:05 Medical History Condition Response Ear or Hearing Problems Y Kidney or Bladder Problems Y Lung Disease Y COPD Y Anemia Y Constipation Y Abnormal PAP Y Diabetes Y Muscle, Joint, or Bone Problems Y Obesity Y Vision or Eye Problems Y Degenerative Disc Disease Y Arthritis Y Acid Reflux (GERD) Y Insomnia Y Cancer Y Stroke Y Blood clot Y Headaches Y Irritable Bowel Syndrome Y Hypertension Y Gynecological History Statement/Question Response [...] SNOMED-CT Code Diagnosis ICD10 Code Diagnosis Note [id number] Any Bo APRN [address] [place] [address] 03/24/2025 14:37:12 03/24/2025 15:41:48 Cyst of skin 416898621 L72.9 packing removed.ed ucated how to do [...] Member ID Mercado Member ID Guarantor Name 03/24/2025 1 [employer] - GOLD PLUS (MEDICARE REPLACEMENT/A DVANTAGE - HMO) Erin Jung [id number] Erin Jung Notes Date Note Type Note Provider Name and Address Organization Details Recorded Time 03/24/2025 text/html 69 yr old female presents for a dressing change to recent cyst removal site to right upper arm on by dr blount. pt states dressing has not been changed Any Bo, BEHAVIORAL SERVICES TECH [address], [place], [address], [place] - [facility] 03/24/2025 16:41:41 OBGyn Episode No OBEpisode recorded.
--- OUTSIDE RECORDS SUMMARY | 2025-03-31 07:53 | XMS_ITS | Clinical Summary ---
Author Organization [facility] Address [address] [place] [address] Care Team Providers Care Cement Sprayer Helper Name Role Phone Orlando Zhang MD Primary Care Provider [phone] Source Comments This information has been disclosed [...] therelease of HIV test results or diagnoses. [id number] Allergies Active Allergy Reactions Criticality Noted [...] (04/04/2019): Added automatically from request for surgery [id number] Malignant neoplasm of lower lobe of right lung 0 03/31/2019 Cancer Staging:Clinical: Unsigned Pathologic stage from 04/28/2019:Stage IA3(pT1c, pN0, cM0) - Signed by Ruma Yang MD on 04/28/[address] of the chest 03/09/2019 Overview (03/09/2019): Added automatically from request for surgery [id number] Resolved Problems Problem Noted Date Diagnosed Date Resolved Date Squamous cell carcinoma of lung, right 04/28/2019 Encounters Date Type Department Care Team Description 02/14/2025 Telephone [facility] Urology at [facility] [address] [facility] [place] [address] Jarod Jones MA 01/26/2025 Orders Only PROVID[facility] UROLOGY [address] [place] [address] Trevon Grant MD 01/26/2025 Telephone [facility] Urology at [facility] [address] [place] [address] Jarod Jones MA 01/26/2025 Orders Only [facility] at [facility] [address] [facility] [address] [place] [address] Saray Hollis RN 01/24/2025 10:50 AM EDT - 01/24/2025 12:10 PM EDT Surgery [facility] [address] [facility] [place] [address] Trevon Grant MD CYSTOSCOPY TRANSURETHRAL RESECTION BLADDER 01/24/2025 10:38 AM EDT Anesthesia Event [facility] [address] [place] [address] Juvencio Martinez MD 01/24/2025 8:44 AM EDT - 01/25/2025 3:33 PM EDT Hospital Encounter [facility] [address] [place] [address] Trevon Grant MD Malignant neoplasm of urinary bladder, unspecified site [facility] Discharge Disposition: Home or Self Care WITHOUT Home Care Services 01/24/2025 Travel 01/18/2025 Telephone [facility] Urology at [facility] [address] [place] [address] Jarod Jones MA 01/17/2025 Telephone [facility] Urology at [facility] [address] [place] [address] Trevon Grant MD Procedure (Procedure Information Request ) from Last 3 Months Family History Medical [...] any time in the past 12 m [facility], were you homeless or living in a senior living (including now)? No 01/24/2025 Comments No Sex [...] - PCV) 10/11/2021 10/11/2020 Immunization: COVID-19 ( season) 2024 Diabetes Screening 01/25/2026 01/25/2025, 1 , 04/12/2019 Immunization: RSV (Adult) (1 - 1-dose 75+ series) 2031 Immunization: DTaP/Tdap/Td ( 2 - Td or Tdap) 01/19/2035 01/19/2025, 05/18/2003 Hepatitis C Screening (VYouhart) Completed Immunization: Influenza (MyChart) Completed 07/13/2024, 09/10/2023, [...] scan (01/27/2025 3:49 AM EDT) us Scanning Uchhi SCAN DOCS - NO RESULTS Final Res ult * (ABNORMAL) POC Glucose Monitoring Device (01/25/2025 12:02 PM EDT) Only the most recent of7 resultswithin the time period is included. POC Glucose Monitoring Device 175(H) 70 - 100 mg/dL 01/25/2025 12:03 PM EDT [facility] Blood 01/25/2025 12:0 2 PM EDT 01/25/2025 12:03 PM EDT Trevon Grant MD POINT OF CARE TEST ORDERABLES Final Result Performing Organization Address [facility]/State/[facility] Co de Phone Number [facility] [address] * (ABNORMAL) Hemoglobin A1c (01/25/2025 3:38 AM EDT) Hemoglobin A1C 6.8(H) 4.0 - 5.6 % 01/25/2025 4:47 AM EDT [facility] Comment: Hemoglobin A1c Interpretation Guidelines: [...] 3:38 AM EDT 01/25/2025 3:58 AM EDT Stuart Hayes MD LAB BLOOD ORDERABLES Final Resul t Performing Organization Address City/[facility]/ZIP Co de Phone Number [facility] [address] [facility]. [address] * Surgical Pathology Exam (01/24/2025 12:00 AM EDT) 01/24/2025 01/24/2025 Narrative [facility] - 01/24/2025 12:00 AM EDT CASE: [id number] PATIENT: TRINIDAD JUNG Clinical History: cystoscopy transurethral resection bladder Pre-Operative Diagnosis: malignant neoplasm of urinary bladder, unspecified site Post-Operative Diagnosis: same Specimen(s) Submitted: A. bladder tumor CPT Code(s): 78910 X 1 Additional Information: FINAL DIAGNOSIS: Bladder, [...] Pathologist signing this report is located at [facility], [address] [place] [address], [facility] [phone], CLIA ID: [id number] us Trevon Grant MD PATHOLOGY/CYTOLOGY ORDERABLES Final Result [facility] * ED HCV Ab Reflex To HCV Quant (06/12/2024 9:00 PM EDT) HCV Ab Nonreactive Nonreactive 06/12/2024 10:06 PM EDT [facility] Comment:Health Department no tified in accordance with reportable infectious disease guidelines. HCVAB Number 0.12 0.00 - 0.79 S/CO 06/12/2024 10:06 PM EDT [facility] Serum 06/12/2024 9:00 PM EDT 06/12/2024 9:10 PM EDT us Olegario HUTSON LAB BLOOD ORDERABLES Final Res ult [facility] [address] [place] [address], [facility] from Last 3 Months or Most Recently Relevant to Health Maintenance Insurance [employer] GOLD PLUS MEDICARE [facility] Care Address: [address] [address] Advance Directives For more information, please contact: [phone] * Full Code (Latest Code Status on File) Date Activated Date Inactivated Comments 01/24/2025 3:48 PM 01/25/2025 7:39 PM * Full Code Date Activated Date Inactivated Comments 07/15/2024 2:07 PM 07/17/2024 7:55 PM * Full Code Date Activated Date Inactivated Comments 04/11/2019 1:26 PM 04/16/2019 6:19 PM Care Teams Cement Sprayer Helper Relationship Specialty Start Date End Date Orlando Zhang MD [address] [place] [address] [address] PCP - General Family Medicine 03/01/19
--- NOTE | 2025-03-31 08:00 | CT_ITS ---
FINAL REPORT TECHNIQUE: Axial CT without IV contrast administration. This study was performed with techniques to keep radiation doses as low as reasonably achievable, (ALARA). Individualized dose reduction techniques using automated exposure control or adjustment of mA and/or kV according to the patient's size were employed. This study was performed with techniques to keep radiation doses as low as reasonably achievable, (ALARA). Individualized dose reduction techniques using automated exposure control or adjustment of mA and/or kV according to the patient''s size were employed. CLINICAL HISTORY: Nodule F/U COMPARISON: 08/11/2024 FINDINGS: There is a spiculated mass in the right upper lobe with new right pleural involvement. Lesion measures 38 x 33 mm, was 34 x 26 mm. Mild scarring is identified in the right lung base. Patient is status post right lower lobectomy change. There is mild right pleural thickening. 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 No pleural or pericardial effusion is seen. 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 IMPRESSION: Further enlargement and right upper lobe mass, now involving the pleura compatible with primary neoplasm. Reviewed, Interpreted and Dictated by Ignacio Christensen MD Transcribed by Kerline Hobbs Authenticated and [facility]
== END 2025-03-31 23:59 | disposition home or self-care (01) ==
LOC: RAD 07:50
PROVIDERS: PCP Family Medicine; Visit Provider Internal Medicine Pulmonary Disease
DX: R91.8 Other nonspecific abnormal finding of lung field (principal)
CPT/HCPCS: 71250

== ENCOUNTER 2025-03-31 10:50 | Outpatient (CLI) | payer MEDICARE, SELFPAY ==
--- OUTSIDE RECORDS SUMMARY | 2025-03-31 10:53 | XMS_ITS | Clinical Summary ---
Author Organization [facility] [place] [address] Care Team Providers Care Workers' Compensation Claims Supervisor Name Role Phone Unavailable Primary Care Provider [...]
--- OUTSIDE RECORDS SUMMARY | 2025-03-31 10:54 | XMS_ITS | Encounter Summary ---
Author Organization [facility] Address [address] [place] [address] Care Team Providers Care Risk Developer Name Role Phone Orlando Zhang MD Primary Care Provider [phone] Source Comments This information has been disclosed [...] release of HIV test results or diagnoses. SCH3097.24 Health Encounter Details Date Type Department Care Team (Late st Contact Info) Description 02/14/2025 Telephone [facility] [address] [place] [address] Jarod Jones MA Social History Tobacco Use Types Packs/Day Years Used Date Smoking Tobacco: Former Cigarettes 1 47 Smokeless Tobacco: Never Comments:currently 1ppd, on Chanti 2019 Alcohol Use Standard Drinks/Week Comments No 0 (1 standard drink = 0.6 oz pur e alcohol) Utilities Answer Date Recorded In the past 12 months has [employer], gas, oil, or water company threatened to [...] any time in the past 12 m [facility], were you homeless or living in a fpc (including now)? No 01/24/2025 Comments No Sex [...] on filedocumented in this encounter Care Teams Risk Developer Relationship Specialty Start Date End Date Orlando Zhang MD [address] [place] [address] PCP - General Family Medicine 03/01/19 documented as of this encounter
--- OUTSIDE RECORDS SUMMARY | 2025-03-31 10:54 | XMS_ITS | Encounter Summary ---
Author Organization [facility] Address [address] [place] [address] Care Team Providers Care Outpatient Coding Specialist Name Role Phone Orlando Zhang MD Primary Care Provider [phone] Source Comments This information has been disclosed [...] release of HIV test results or diagnoses. [id number] Health Reason for Visit * Reason Comments Procedure Procedure Informatio n Request Encounter Details Date Type Department Care Team (Late st Contact Info) Description 01/17/2025 Telephone [facility] U[facility] at [facility] [address] [address] Trevon Grant MD [address] [place] [address] Procedure (Procedure Information Request ) Social History Tobacco Use Types Packs/Day Years Used Date Smoking Tobacco: Former Cigarettes 1 47 Smokeless Tobacco: Never Comments:currently 1ppd, on Chanti 2019 Alcohol Use Standard Drinks/Week Comments No 0 (1 standard drink = 0.6 oz pur e alcohol) Utilities Answer Date Recorded In the past 12 months has [employer] electric, gas, oil, or water company threatened [...] any time in the past 12 m [facility], were you homeless or living in [...] on filedocumented in this encounter Care Teams Outpatient Coding Specialist Relationship Specialty Start Date End Date Orlando Zhang MD [address] [place] [address] PCP - General Family Medicine 03/01/19 documented as of this encounter
--- OUTSIDE RECORDS SUMMARY | 2025-03-31 10:54 | XMS_ITS ---
Author Organization [facility] Address [address] [place] [address] Care Team Providers Care Impregnator Operator Name Role Phone Orlando Zhang MD Primary Care Provider [phone] Active Problems Problem Noted Date Diagnosed Date Bladder mass 06/30/2024 Calculus of ureter 06/30/2024 Lung nodule 04/04/2019 Overview (04/04/2019): Added automatically from request for surgery [id number] Malignant neoplasm of lower lobe of right lung 0 03/31/2019 Cancer Staging:Clinical: Unsigned Pathologic stage from 04/28/2019:Stage IA3(pT1c, pN0, cM0) - Signed by Ruma Yang MD on 04/28/[address] of the chest 03/09/2019 Overview (03/09/2019): Added automatically from request for surgery [id number] Current Treatment and Therapy Plans No current [...]
--- OUTSIDE RECORDS SUMMARY | 2025-03-31 10:54 | XMS_ITS ---
Author Organization [facility] Care Team Providers Care Director Pharmacology Name Role Phone Aaron Cornejo Unavailable Unavailable Allergies and adverse reactions Code CodeSystem Substance Reaction Severity StartDate Concern Status 3355 RXNORM Diclofenac Unknown 10/31/2019 active Care Team Name Role Address Phone Organization Dates Aaron Cornejo PCP [address], [address], [place] (Office): : [facility] 10/31/2019 - 11/10/2019 Immunizations Immunization Status Vaccine Details Vaccine Code CodeSystem Date Notes TB 1 Step Mantoux (PPD) completed tuberculin skin test; unspecified formulation lotNumber: [id number] expiry: 03/21/2021 Mfg: Tubersol Given 0.1 ml [...] ACQUIRED ABSENCE OF LUNG [PART OF] [address] active 2 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 [address] active 3 ACUTE AND CHRONIC RESPIRATORY FAILURE WITH HYPOXIA [address] active 4 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 [address] active 5 CHRONIC OBSTRUCTIVE PULMONARY DISEASE, UNSPECIFIED [address] active 6 GASTRO-ESOPHAGE AL REFLUX DISEASE WITHOUT ESOPHAGITIS [address] active 7 HYPOTHYROIDISM, UNSPECIFIED [address] active 8 OBESITY, UNSPECIFIED [address] active 9 PERSONAL HISTORY OF OTHER MALIGNANT NEOPLASM OF BRONCHUS AND LUNG [address] active 10 PERSONAL HISTORY OF OTHER VENOUS THROMBOSIS AND EMBOLISM [address] active 11 PLEURAL EFFUSION IN OTHER CONDITIONS CLASSIFIED ELSEWHERE [address] active 12 UNSPECIFIED DIASTOLIC (CONGESTIVE) HEART FAILURE [address] active Reason for Referral No Reasons for Referral Entered Social History Social History Observation Description Start Date End Date Code Code System Current Smoking Status Tobacco smoking consumption unknown 722626744 SNOMED CT Sex Assigned At Female 1955 57603-4 [facility] Gender Identity Vital Signs Code Code System Vitals Name Values and Units Timing Information 64753-3 [facility] O2 % BldC Oximetry Value=89.0 Units= % 11/10/2019 47827-4 INC Pain Level Value=0.0 11/10/2019 9279-1 LOINC Respiratory Rate Value=18.0 Units=/m in 11/10/2019 8462-4 LOINC Blood Pressure-Diastolic Value=70 Un its=mmHg 11/10/2019 8480-6 LOINC Blood Pressure-Systolic Cwjwq=932 Un its=mmHg 11/10/2019 8310-5 LOINC Body Temperature Value=98.1 Units= F 11/10/2019 8867-4 LOINC Heart rate Value=82.0 Units=/min 03/2020 83941-3 LOINC Weight Vcput=152.8 Units=Lbs 01/2020 2339-0 LOINC Blood Sugar Wblac=995.0 Units=mg/dL 11/07/2019 8302-2 LOINC Height Value=66.0 Units=Inches 11/01/2019
[2025-03-31 10:55] LABS: Anti-Centromere B Antibodies ND; Anti-DNA (DS) Ab Qn ND; Anti-Jo-1 ND; Antichromatin Antibodies ND; Antiscleroderma-70 Antibodies ND; RNP Antibodies ND; Sjogren's Anti-SS-A ND; Sjogren's Anti-SS-B ND
--- OUTSIDE RECORDS SUMMARY | 2025-03-31 10:56 | XMS_ITS | Clinical Summary ---
Author Organization [facility] Address [address] [facility] [address] [place] [id number] Phone Care Team Providers Care Books Binder Name Role Phone Camelia Patterson MD [phone] Conditions or Problems No information available. Medications No information available. Medications Administered No information available. Allergies, Adverse Reactions, Alerts No information available. Results No information available. Plan of Care No information available. Procedures No information available. Vital Signs No information available. Immunizations No information available. Advance Directives No information available.
[2025-03-31 11:55] LABS: C-Reactive Protein 18.1 mg/L (0-4)
[2025-04-03 14:16] LABS: Antinuclear Antibodies (ANA) Negative (Negative)
[2025-04-04 16:22] LABS: Aspergillus flavus Negative (Neg:<1:1); Aspergillus fumigatus Negative (Neg:<1:1); Aspergillus niger Negative (Neg:<1:1); Blastomyces Antibody Negative (Neg:<1:1); Histoplasma Antibody Quant Negative (Neg:<1:1)
== END 2025-03-31 23:59 | disposition home or self-care (01) ==
LOC: LAB 10:51
PROVIDERS: PCP Family Medicine; Visit Provider Internal Medicine Pulmonary Disease
DX: J84.9 Interstitial pulmonary disease, unspecified (principal); R06.09 Other forms of dyspnea; R91.1 Solitary pulmonary nodule; J84.10 Pulmonary fibrosis, unspecified
CPT/HCPCS: 36415; 86140; 86606; 86612; 86698

== ENCOUNTER 2025-04-12 13:59 | Outpatient (CLI) | payer MEDICARE, SELFPAY ==
--- OUTSIDE RECORDS SUMMARY | 2025-04-12 14:01 | XMS_ITS | Clinical Summary ---
Author Organization [facility] [place] [address] Care Team Providers Care Personal Security Specialist Name Role Phone Unavailable Primary Care Provider [...] - 2023-2 5 season) 2024 Influenza Vaccine (#1) 2025 Hepatitis B Vaccine Aged Out No longe r eligible based on patient's age to complete this topic Meningococcal B Vaccine Aged Out No l onger eligible based on patient's age to complete this topic
--- OUTSIDE RECORDS SUMMARY | 2025-04-12 14:02 | XMS_ITS | Encounter Summary ---
Author Organization [facility] Address [address] [place] [address] Care Team Providers Care Tube Former Operator Name Role Phone Orlando Zhang MD Primary Care Provider [phone] Source Comments This information has been disclosed [...] release of HIV test results or diagnoses. CYY2246.24 Health Reason for Visit * Reason Comments Procedure Procedure Informatio n Request Encounter Details Date Type Department Care Team (Late st Contact Info) Description 01/17/2025 Telephone [facility] at [facility] [address] [address] Trevon Grant MD [address] [place] [address] Procedure (Procedure Information Request ) Social History Tobacco Use Types Packs/Day Years Used Date Smoking Tobacco: Former Cigarettes 1 47 Smokeless Tobacco: Never Comments:currently 1ppd, on Chanti 2019 Alcohol Use Standard Drinks/Week Comments No 0 (1 standard drink = 0.6 oz pur e alcohol) Utilities Answer Date Recorded In the past 12 months has [employer] electric, gas, oil, or water company threatened [...] any time in the past 12 m [facility], were you homeless or living in a alf (including now)? No 01/24/2025 Comments No Sex [...] on filedocumented in this encounter Care Teams Tube Former Operator Relationship Specialty Start Date End Date Orlando Zhang MD [address] [place] [address] [address] PCP - General Family Medicine 03/01/19 documented as of this encounter
--- OUTSIDE RECORDS SUMMARY | 2025-04-12 14:02 | XMS_ITS | Clinical Summary ---
Author Organization [facility] Address [address] [place] [address] Care Team Providers Care Cracking And Fanning Machine Operator Name Role Phone Orlando Zhang MD Primary Care Provider [phone] Source Comments This information has been disclosed [...] therelease of HIV test results or diagnoses. [id number] Health Allergies Active Allergy Reactions Criticality [...] (04/04/2019): Added automatically from request for surgery [id number] Malignant neoplasm of lower lobe of right lung 0 03/31/2019 Cancer Staging:Clinical: Unsigned Pathologic stage from 04/28/2019:Stage IA3(pT1c, pN0, cM0) - Signed by Ruma Yang MD on 04/28/[address] of the chest 03/09/2019 Overview (03/09/2019): Added automatically from request for surgery [id number] Resolved Problems Problem Noted Date Diagnosed Date Resolved Date Squamous cell carcinoma of lung, right 04/28/2019 Encounters Date Type Department Care Team Description 02/14/2025 Telephone [facility] Urology at [facility] [address] [facility] [place] [address] Jarod Jones MA 01/26/2025 Orders Only [facility] [address] [place] [address] Trevon Grant MD 01/26/2025 Telephone [facility] Urology at [facility] [address] [place] [address] Jarod Jones MA 01/26/2025 Orders Only [facility] [address] [facility] [address] [place] [address] Saray Hollis RN 01/24/2025 10:50 AM EDT - 01/24/2025 12:10 PM EDT Surgery [facility] [address] [facility] [place] [address] Trevon Grant MD CYSTOSCOPY TRANSURETHRAL RESECTION BLADDER 01/24/2025 10:38 AM EDT Anesthesia Event [facility] [address] [place] [address] Juvencio Martinez MD 01/24/2025 8:44 AM EDT - 01/25/2025 3:33 PM EDT Hospital Encounter [facility] [address] [place] [address] [place] [address] Trevon Grant MD Malignant neoplasm of urinary bladder, unspecified site ([facility]) Discharge Disposition: Home or Self Care WITHOUT Home Care Services 01/24/2025 Travel 01/18/2025 Telephone [facility] Urology at [facility] [address] [place] [address] Jarod Jones MA 01/17/2025 Telephone [facility] Urology at [facility] [address] [place] [address] Trevon Grant MD Procedure (Procedure Information Request [...] were you homeless or living in a assisted (including now)? No 01/24/2025 Comments No Sex [...] 10/11/2021 10/11/2020 Immunization: COVID-19 ( season) 2024 Immunization: Influenza (MyC guevara) (#1) 2025 07/13/2024, 09/10/2023, 10/11/2020, Additional history exists Diabetes Screening 01/25/2026 01/25/2025, 1 , 04/12/2019 Immunization: RSV (Adult) (1 - 1-dose 75+ series) 2031 Immunization: DTaP/Tdap/Td ( 2 - Td or Tdap) 01/19/2035 01/19/2025, 05/18/2003 Hepatitis C Screening (MyChart) Completed 4 Procedures Procedure Name Priority Date/Time Associated Diagnosis [...] - 100 mg/dL 01/25/2025 12:03 PM EDT [facility] Blood 01/25/2025 12:0 2 PM EDT 01/25/2025 12:03 PM EDT Trevon Grant MD POINT OF CARE TEST ORDERABLES Final Result Performing Organization Address [facility] Co de Phone Number [facility] [address] * (ABNORMAL) Hemoglobin A1c (01/25/2025 3:38 AM EDT) Hemoglobin A1C 6.8(H) 4.0 - 5.6 % 01/25/2025 4:47 AM EDT [facility] Comment: Hemoglobin A1c Interpretation Guidelines: Normal: [...] ORDERABLES Final Resul t Performing Organization Address City/[facility] Co de Phone Number [facility] [address] [facility]. [address] * Surgical Pathology Exam (01/24/2025 12:00 AM EDT) 01/24/2025 01/24/2025 Narrative [facility] - 01/24/2025 12:00 AM EDT CASE: [id number] PATIENT: TRINIDAD JUNG Clinical History: cystoscopy transurethral resection bladder Pre-Operative Diagnosis: malignant neoplasm of urinary bladder, unspecified site Post-Operative Diagnosis: same Specimen(s) Submitted: A. bladder tumor CPT Code(s): 51121 X 1 Additional Information: FINAL DIAGNOSIS: Bladder, [...] Pathologist signing this report is located at [facility], [address] [place] [address], [facility] [phone], CLIA ID: [id number] us Trevon Grant MD PATHOLOGY/CYTOLOGY ORDERABLES Final [...] [facility] BLOOD ORDERABLES Final Res ult [facility] [address] [place] [address], [facility] from Last 3 Months or Most Recently Relevant to Health Maintenance Insurance [employer] GOLD PLUS MEDICARE [facility] Care Address: [address] [address] Advance Directives For more information, please contact: [phone] * Full Code (Latest Code Status on File) Date Activated Date Inactivated Comments 01/24/2025 3:48 PM 01/25/2025 7:39 PM * Full Code Date Activated Date Inactivated Comments 07/15/2024 2:07 PM 07/17/2024 7:55 PM * Full Code Date Activated Date Inactivated Comments 04/11/2019 1:26 PM 04/16/2019 6:19 PM Care Teams Cracking And Fanning Machine Operator Relationship Specialty Start Date End Date Orlando Zhang MD [address] [address] PCP - General Family Medicine 03/01/19
--- OUTSIDE RECORDS SUMMARY | 2025-04-12 14:02 | XMS_ITS ---
Author Organization [facility] Care Team Providers Care Director Of Coding Name Role Phone Aaron Cornejo Unavailable Unavailable Allergies and adverse reactions Code CodeSystem Substance Reaction Severity StartDate Concern Status 3355 RXNORM Diclofenac Unknown 10/31/2019 active Care Team Name Role Address Phone Organization Dates Aaron Cornejo PCP [address], [address], [place] (Office): : [facility] 10/31/2019 - 11/10/2019 Immunizations Immunization Status Vaccine Details Vaccine Code CodeSystem Date Notes TB 1 Step Mantoux (PPD) completed tuberculin skin test; unspecified formulation lotNumber: [id number] expiry: 03/21/2021 Mfg: Tubersol Given 0.1 ml [...] ACQUIRED ABSENCE OF LUNG [PART OF] [address] active 2 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 [address] active 3 ACUTE AND CHRONIC RESPIRATORY FAILURE WITH HYPOXIA [address] active 4 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 [address] active 5 CHRONIC OBSTRUCTIVE PULMONARY DISEASE, UNSPECIFIED [address] active 6 GASTRO-ESOPHAGE AL REFLUX DISEASE WITHOUT ESOPHAGITIS [address] active 7 HYPOTHYROIDISM, UNSPECIFIED [address] active 8 OBESITY, UNSPECIFIED [address] active 9 PERSONAL HISTORY OF OTHER MALIGNANT NEOPLASM OF BRONCHUS AND LUNG [address] active 10 PERSONAL HISTORY OF OTHER VENOUS THROMBOSIS AND EMBOLISM [address] active 11 PLEURAL EFFUSION IN OTHER CONDITIONS CLASSIFIED ELSEWHERE [address] active 12 UNSPECIFIED DIASTOLIC (CONGESTIVE) HEART FAILURE [address] active Reason for Referral No Reasons for Referral Entered Social History Social History Observation Description Start Date End Date Code Code System Current Smoking Status Tobacco smoking consumption unknown 228701294 SNOMED CT Sex Assigned At Female 1955 [address]-8 [facility] Gender Identity Vital Signs Code Code System Vitals Name Values and Units Timing Information 41043-2 [facility] O2 % BldC Oximetry Value=89.0 Units= % 11/10/2019 70488-7 [facility] Pain Level Value=0.0 11/10/2019 9279-1 INC Respiratory Rate Value=18.0 Units=/m in 11/10/2019 8462-4 [facility] Blood Pressure-Diastolic Value=70 Un its=mmHg 11/10/2019 8480-6 LOINC Blood Pressure-Systolic Lmqmb=723 Un its=mmHg 11/10/2019 8310-5 [facility] Body Temperature Value=98.1 Units= F 11/10/2019 8867-4 LOINC Heart rate Value=82.0 Units=/min 03/2020 22329-7 LOINC Weight Oxrcy=141.8 Units=Lbs 01/2020 2339-0 [facility] Blood Sugar Egkev=236.0 Units=mg/dL 11/07/2019 8302-2 LOINC Height Value=66.0 Units=Inches 11/01/2019
--- OUTSIDE RECORDS SUMMARY | 2025-04-12 14:02 | XMS_ITS | Encounter Summary ---
Author Organization [facility] Address [address] [place] [address] Care Team Providers Care Deckhand Clam Dredge Name Role Phone Orlando Zhang MD Primary [...] release of HIV test results or diagnoses. [id number] Health Encounter Details Date Type Department Care Team (Late st Contact Info) Description 02/14/2025 Telephone [facility] at [place] [facility] [address] [place] [address] Jarod Jones MA Social History Tobacco Use Types Packs/Day Years Used Date Smoking Tobacco: Former Cigarettes 1 47 Smokeless Tobacco: Never Comments:currently 1ppd, on Chanti 2019 Alcohol Use Standard Drinks/Week Comments No 0 (1 standard drink = 0.6 oz pur e alcohol) Utilities Answer Date Recorded In the past 12 months has [employer] gas, oil, or water company threatened to [...] any time in the past 12 m [facility], were you homeless or living in a [facility] (including now)? No 01/24/2025 Comments No Sex [...] on filedocumented in this encounter Care Teams Deckhand Clam Dredge Relationship Specialty Start Date End Date Orlando Zhang MD [address] [place] [address] PCP - General Family Medicine 03/01/19 documented as of this encounter
--- OUTSIDE RECORDS SUMMARY | 2025-04-12 14:02 | XMS_ITS ---
Author Organization [facility] Address [address] [place] [address] Care Team Providers Care Solar Sales Advisor Name Role Phone Orlando Zhang MD Primary Care Provider [phone] Active Problems Problem Noted Date Diagnosed Date Bladder mass 06/30/2024 Calculus of ureter 06/30/2024 Lung nodule 04/04/2019 Overview (04/04/2019): Added automatically from request for surgery [id number] Malignant neoplasm of lower lobe of right lung 0 03/31/2019 Cancer Staging:Clinical: Unsigned Pathologic stage from 04/28/2019:Stage IA3(pT1c, pN0, cM0) - Signed by Ruma Yang MD on 04/28/[address] of the chest 03/09/2019 Overview (03/09/2019): Added automatically from request for surgery [id number] Current Treatment and Therapy Plans No current [...]
--- NOTE | 2025-04-12 14:11 | XR_ITS ---
FINAL REPORT TECHNIQUE: Chest PA & Lateral CLINICAL HISTORY: sob, worsening recently COMPARISON: Prior CT dated 03/31/2025 FINDINGS: 2 views of the chest were performed. The heart size is normal. The mediastinum is within normal limits. There is an abnormal opacity in the periphery of the right midlung, measuring 3.7 x 2.7 cm in size. There is blunting of the costophrenic angles bilaterally, that likely represents scar. There is no pneumothorax. The bony thorax appears intact. IMPRESSION: Abnormal opacity in the periphery of the right midlung, also seen on a chest CT dated 03/31/2025, that is worrisome for an underlying malignancy. Reviewed, Interpreted and Dictated by Lee Lutz MD Transcribed by Esther Dawkins Authenticated and [facility]
[2025-04-12 15:40] LABS: Albumin Level 4.5 g/dl (3.5-5.0); Chloride 90 mmol/L (98-107); Potassium 4.5 mmoL/L (3.5-5.1); Sodium 132 mmol/L (136-145)
[2025-04-12 15:42] LABS: Blood Urea Nitrogen 32 mg/dl (7-17); Creatinine,Serum 1.00 mg/dl (0.52-1.04); Estimated Glomerular Filt Rate 55 ml/min (>60); GFR (African American) 67 ML/MIN (>60)
[2025-04-12 15:43] LABS: Alanine Aminotransferase 24 U/L (12-78); Albumin/Globulin Ratio 1.9 (1.1-1.8); Alkaline Phosphatase 104 U/L (38-126); Anion Gap 13.5 mEq/L (5-15); Aspartate Amino Transferase 25 U/L (14-36); Bilirubin,Total 0.6 mg/dl (0.2-1.3); Calcium 9.4 mg/dl (8.4-10.2); Carbon Dioxide 33 mmol/L (22.0-30.0); Creatine Kinase 42 U/L (30-135); Globulin 2.4 g/dL (1.3-3.2); Glucose 145 mg/dl (74-100); Total Protein,Serum 6.9 g/dl (6.3-8.2)
== END 2025-04-12 23:59 | disposition home or self-care (01) ==
LOC: LAB 14:00
PROVIDERS: PCP Family Medicine; Visit Provider Internal Medicine Pulmonary Disease
DX: J18.9 Pneumonia, unspecified organism (principal); R06.02 Shortness of breath
CPT/HCPCS: 36415; 71046; 80053; 82550

== ENCOUNTER 2025-05-12 13:46 | Outpatient (CLI) | payer MEDICARE, SELFPAY ==
--- OUTSIDE RECORDS SUMMARY | 2025-05-04 10:00 | XMS_ITS | Encounter Summary ---
Author Organization [facility] Address [address] [place] [address] Care Team Providers Care Museum Assistant Name Role Phone Orlando Zhang MD Primary Care Provider [phone] Source Comments This information has been disclosed [...] release of HIV test results or diagnoses. 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 No 01/24/2025 Comments No Sex [...] used for procedure: Flex Uro Scope 11 [facility] Flexible Cystoscope Log Cystoscope Label Serial Number Model Flex Uro 1 [id number] Olympus CYF-VHR Flex Uro 2 [id number] Olympus CYF Type V2R Flex Uro 3 [id number] Olympus CYF Type V2R Flex Uro 4 [id number] Olympus CYF Type V2R Flex Uro 5 [id number] Olympus CYF Type V2R Flex Uro 6 [id number] Olympus CYF Type V2R Flex Uro 7 [id number] CYF VHR Flex Uro 8 [id number] CYF VHR Flex Uro 9 [id number] CYF VHR Flex Uro 10 [id number] CYF VHR Flex Uro 11 [id number] CYF VHR Flex Uro 12 [id number] CYF VHR Uro Loaner 12 [id number] CYF VHR Uro Loaner 13 [id number] CYF VHR Uro Loaner 14 [id number] CYF VHR documented in this encounter Procedure [...] Procedure Name Priority Date/Time Associated Diagnosis Comments NON-SUPERVISOR DISPLAY FABRICATION CYTOLOGY Routine 05/04/2025 12:0 0 AM EDT documented in this encounter Results * Non-Grinder Cytology (05/04/2025 12:00 AM EDT) 05/04/2025 05/05/2025 Narrative [facility] - 05/04/2025 12:00 AM EDT CASE: [id number] PATIENT: ERIN JUNG Clinical History: Clinical Diagnosis: Malignant Neoplasm Of Overlapping Sites Of Bladder (CMS-HCC) [C67.8]-Primary Specimen Source: A. Urine Gross Description: Received 20ml Yellow Fluid CPT Code(s): 83966 X 1 Additional Information: DIAGNOSIS: Urine (thin prep) NO MALIGNANT CELLS IDENTIFIED MICROORGANISMS: Fungi consistent with Willa sp. are present Initial Evaluation performed by ANUSHA OLIVARES(ASCP) Bioprocessing Manufacturing Technician Electronically signed 05/08/2025 06:43:29 AM The Diagnostician signing this report is located at [facility], [address] [place] [address], [id number], , CLIA ID: [id number] Final Diagnosis performed by Chris Perez D.O. Pathologist Electronically signed 05/08/2025 04:29:59 PM The Pathologist signing this report is located at [facility], [address] [place] [address], [id number], , CLIA ID: [id number] us Ruddy Rodriguez MD PATHOLOGY/CYTOLOGY ORDERABLES Final [...] mLs documented in this encounter Care Teams Museum Assistant Relationship Specialty Start Date End Date Orlando Zhang MD [address] [place] [address] PCP - General Family Medicine 03/01/19 documented as of this encounter
--- OUTSIDE RECORDS SUMMARY | 2025-05-12 13:48 | XMS_ITS ---
Author Organization [facility] Address [address] [place] [address] Care Team Providers Care Cold Mill Supervisor Name Role Phone Orlando Zhang MD Primary Care Provider [phone] Active Problems Problem Noted Date Diagnosed Date Malignant neoplasm of overlapping sites of bladd er 05/04/2025 Bladder mass 06/30/2024 Calculus of ureter 06/30/2024 Lung nodule 04/04/2019 Overview (04/04/2019): Added automatically from request for surgery [id number] Malignant neoplasm of lower lobe of right lung 0 03/31/2019 Cancer Staging:Clinical: Unsigned Pathologic stage from 04/28/2019:Stage IA3(pT1c, pN0, cM0) - Signed by Ruma Yang MD on 04/28/[address] of the chest 03/09/2019 Overview (03/09/2019): Added automatically from request for surgery [id number] Current Treatment and Therapy Plans No current [...]
--- OUTSIDE RECORDS SUMMARY | 2025-05-12 13:48 | XMS_ITS | Encounter Summary ---
Author Organization [facility] Address [address] [place] [address] Care Team Providers Care Arterial Embalmer Name Role Phone Orlando Zhang MD Primary Care Provider [phone] Source Comments This information has been disclosed [...] release of HIV test results or diagnoses. [id number] Reason for Visit * Reason Comments Appointment Good afternoonHello, The patient attached was unable to reach you in attempt to contact office. Patient calling to schedule: FU with Dr. Grant in ~3 months with cytology and office cysto Please contact this patient at your earliest convience. Thank you. Encounter Details Date Type Department Care Team (Late Contact Info) Description 04/21/2025 Telephone [facility] Urology at [facility] Office [address] [facility] [address] [place] [address] Trevon Grant MD [address] [place] [address] Appointment (Good afternoon//Helcynthia,//The patient attached was unable to reach you in attempt to contact office. Patient calling to schedule: FU with Dr. Grant in ~3 months with cytology and office cysto //Please contact this patient at your earliest convience. //Thank you. ) Social History Tobacco Use Types Packs/Day [...] any time in the past 12 m [facility], were you homeless or living in a usp (including now)? No 01/24/2025 Comments No Sex and Gender Information Value Date Recorded Sex Assigned at Not on file Legal Sex Female 7:42 PM EST Gender Identity Not on file Sexual Orientation Not on file documented as of this encounter Miscellaneous Notes * Telephone Encounter - Mary Jane Rakesh - 04/21/2025 1:25 PM EDT Good afternoon Hello, The patient attached was unable to reach you in attempt to contact office. Patient calling to schedule: FU with Dr. Grant in ~3 months with cytology and office cysto Please contact this patient at your earliest convience. Thank you. documented in this encounter Plan of Treatment Not on file documented as of this encounter Visit Diagnoses Not on filedocumented in this encounter Care Teams Arterial Embalmer Relationship Specialty Start Date End Date Orlando Zhang MD [address] [place] [address] PCP - General Family Medicine 03/01/19 documented as of this encounter
--- OUTSIDE RECORDS SUMMARY | 2025-05-12 13:48 | XMS_ITS | Encounter Summary ---
Author Organization [facility] Address [address] [place] [address] Care Team Providers Care Income Tax Analyst Name Role Phone Orlando Zhang MD [...] release of HIV test results or diagnoses. [id number] Health Encounter Details Date Type Department Care Team (Late st Contact Info) Description 04/24/2025 Telephone [facility] [place] [facility] [address] [place] [phone] Jarod Jones MA Social History Tobacco Use Types Packs/Day Years Used Date Smoking Tobacco: Former Cigarettes 1 47 Smokeless Tobacco: Never Comments:currently 1ppd, on Chanti 2019 Alcohol Use Standard Drinks/Week Comments No 0 (1 standard drink = 0.6 oz pur e alcohol) Utilities Answer Date Recorded In the past 12 months has [employer], gas, oil, or water company threatened to [...] any time in the past 12 m [facility], were you homeless or living in a [facility] (including now)? No 01/24/2025 Comments No Sex and Gender Information Value Date Recorded Sex Assigned at Not on file Legal Sex Female 7:42 PM EST Gender Identity Not on file Sexual Orientation Not on file documented as of this encounter Miscellaneous Notes * Telephone Encounter - Jarod Jones MA - 04/24/2025 9:02 AM EDT Left pt a VM adv pt in order for her to get her cysto she has to do her BCG'S first. documented in this encounter Plan of Treatment Not on file documented as of this encounter Visit Diagnoses Not on filedocumented in this encounter Care Teams Income Tax Analyst Relationship Specialty Start Date End Date Orlando Zhang MD [address] [place] [address] PCP - General Family Medicine 03/01/19 documented as of this encounter
--- OUTSIDE RECORDS SUMMARY | 2025-05-12 13:48 | XMS_ITS | Clinical Summary ---
Author Organization [facility] [place] [address] Care Team Providers Care Gas Collection System Operator Name Role Phone Unavailable Primary Care Provider [...]
--- OUTSIDE RECORDS SUMMARY | 2025-05-12 13:50 | XMS_ITS | Clinical Summary ---
Author Organization [facility] Address [address] [facility] [address] [id number] Phone Care Team Providers Care Rubber Goods Tester Name Role Phone Leonardo CUETO, Camelia Bob [phone] Conditions or Problems No information available. Medications No information available. Medications Administered No information available. Allergies, Adverse Reactions, Alerts No information available. Results No information available. Plan of Care No information available. Procedures No information available. Vital Signs No information available. Immunizations No information available. Advance Directives No information available.
--- OUTSIDE RECORDS SUMMARY | 2025-05-12 13:50 | XMS_ITS | Clinical Summary ---
Author Organization [facility] Address [address] [place] [address] Care Team Providers Care Mortar Carrier Name Role Phone Orlando Zhang MD Primary Care Provider [phone] Allergies Active Allergy Reactions Criticality Noted Date Comments Diclofenac Nausea And Vomiting 10/21/2019 Medications omeprazole (priLOSEC) 40 MG capsule Take 40 mg by mouth Daily. Active aspirin 81 MG chewable tablet Chew 1 tablet Daily. 11/01/19 Active calcium carbonate EX (TUMS EX) 750 MG chewable tablet Chew 1 tablet 2 (Two) Times a Day As Needed for Indigestion or Heartburn. 10/31/19 Active ipratropium-albute rol (DUO-NEB) 0.5-2.5 mg/3 ml nebulizer Take 3 mL by nebulization Every 4 (Four) Hours As Needed for Wheezing or Shortness of Air. 360 mL 10/31/19 Active apixaban (ELIQUIS) 5 MG tablet tabletIndications: DVT/PE (active thrombosis),Other - full anticoagulation Take 1 tablet by mouth Every 12 (Twelve) Hours. Indications: DVT/PE (active thrombosis), Other - full anticoagulation 60 tablet 10/31/19 Active atorvastatin (LIPITOR) 80 MG tablet Take 1 tablet by mouth Every Night. 10/31/19 Active amLODIPine (NORVASC) 5 MG tablet Take 1 tablet by mouth Daily. 11/01/19 Active torsemide (DEMADEX) 10 MG tablet Take 1 tablet by mouth Daily. 11/01/19 20 Active sennosides-docusat e (PERICOLACE) 8.6-50 MG per tablet Take 2 tablets by mouth 2 (Two) Times a Day As Needed for Constipation. 10/31/19 Active ASPIRIN LOW DOSE 81 MG EC tablet 10/31/19 Active bisoprolol-hydroch lorothiazide (ZIAC) 10-6.25 MG per tablet Take 1 tablet by mouth Daily. 02/09/20 19 Active bisoprolol (ZEBeta) 5 MG tablet 11/07/19 Active FLUoxetine (PROzac) 20 MG capsule 11/07/19 Active ibuprofen (ADVIL,MOTRIN) 600 MG tablet Take 600 mg by mouth 3 (Three) Times a Day. 04/16/20 Active naproxen (NAPROSYN) 500 MG tablet Take 1 tablet(s) by mouth 2 times a day with food 10/10/19 Active SENNA 8.6 MG tablet Take 2 tablets by mouth Daily. 09/26/20 Active Active Problems Problem Noted Date Diagnosed Date On home O2 (2-3L NC) 10/22/2019 Smoker 10/22/2019 GERD 10/22/2019 Elevated troponin 10/22/2019 Possible clotting disorder 10/22/2019 STEPHON w/CPAP non-compliance 10/22/2019 Class 1 obesity in adult 10/22/2019 Hypothyroidism 10/22/2019 Moderate-large transudative R pleural effusion s/p right pigtail drain 10/22/2019 10/22/2019 Bilateral embolic strokes 10/21/2019 Acute on chronic next hypoxe aaron/hypercarbic respiratory failure 10/21/2019 Acute metabolic encephalopathy 10/21/2019 Hypokalemia 10/21/2019 H/O R squamous cell lung CA s/p RLL lobectomy Overview (10/22/2019): Stage IA3 squamous cell carcinoma of the lung status post VATS with right lower lobectomy in April 2019. 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 Not on file 06/2023 Does Anyone Keep You from Co ntacting Others or Doint Things Outside the Home? Not on file 07/13/2023 Physical Sign of Abuse Present Not on file 1 Housing Stability Answer Date Recorded Current Living Arrangements Not on file 06/2023 Potentially Unsafe Housing Conditions Not on gino e 07/13/2023 Family and Community Support Answer Kamaljit e Recorded Help with Day-to-Day Activities Not on file 07/13/2023 Lonely or Isolated Not on file 07/13/2023 Employment Answer Date Recorded Do you want help finding or keeping work or a frank b? Not on file 07/13/2023 Disabilities Answer Date Recorded Concentrating, Remembering, or Making Decisions Difficulty Not on file 07/13/2023 Doing Errands Independently Difficulty Not on fi le 07/13/2023 Education Answer Date Recorded Help with school or training? Not on file Preferred Language Not on file 07/13/2023 Comments Unknown Sex and Gender Information Value Date Recorded Sex Assigned at Not on file Legal Sex Female 11:55 AM EDT Gender Identity Not on file Sexual Orientation Not on file Last Filed Vital Signs Vital Sign Reading Time Taken Comments Blood Pressure 137/71 11/10/2019 2:39 PM EST Pulse 71 11/10/2019 2:39 PM EST Temperature 36.9 C (98.4 F) 11/10/2019 2:39 PM EST Respiratory Rate 18 11/10/2019 2:39 PM EST Oxygen Saturation 96% 11/10/2019 2:4 9 PM EST After resting on 2L O2. Inhaled Oxygen Concentration - - Weight 104 kg (230 lb) 11/10/2019 2:39 PM EST Height 167.6 cm (5' 6 ) 11/10/2019 2:39 PM EST Body Mass Index 37.12 11/10/2019 2:39 PM EST Plan of Treatment Health Maintenance Due Date Last Done Comments DXA SCAN 1956 MAMMOGRAM 1996 COLOGUARD 2001 COLON CANCER SCREENING 5 YEAR SIGMOIDOSCOPY 2001 COLONOSCOPY 2001 [address] CANCER SCREENING 2001 CT COLONOGRAPHY 2001 FECAL OCCULT BLOOD TEST 2001 FIT Testing (1 year) 2001 Pneumococcal Vaccine 50+ (1 of 1 - PCV) 2006 ZOSTER VACCINE (1 of 2) 2006 TDAP/TD VACCINES (2 - Tdap) 05/18/2013 05/18/2003 ANNUAL PHYSICAL 10/21/2019 HEPATITIS C SCREENING 10/21/2019 COVID-19 Vaccine ( - season) 2024 INFLUENZA VACCINE 07/05/2025 Advance Directives * CPR (Attempt to Resuscitate) (Latest Code Status on File) Date Activated Date Inactivated Comments 10/21/2019 9:45 PM 10/31/2019 3:43 PM Question Answer Comments Code Status (Patient has no pulse and is not breathing): CPR (Attempt to Resuscitate) Medical Interventions (Patie nt has pulse or is breathing): Full Level Of Support Discussed With: Patient Care Teams Mortar Carrier Relationship Specialty Start Date End Date Orlando Zhang MD [address] [place] [address] PCP - General Family Medicine 10/21/19
--- NOTE | 2025-05-12 14:00 | CT_ITS ---
FINAL REPORT TECHNIQUE: Axial images were obtained through the chest without contrast. Coronal and sagittal images were obtained and reviewed. This study was performed with techniques to keep radiation doses as low as reasonably achievable, (ALARA). Individualized dose reduction techniques using automated exposure control or adjustment of mA and/or kV according to the patient's size were employed. CLINICAL HISTORY: shortness of breath, lung mass COMPARISON: 03/16/2025 FINDINGS: There is asymmetric enlargement of the left lobe of the thyroid. 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 No mediastinal mass or adenopathy is noted. The heart size is normal. There is no pericardial or pleural effusion. Again seen is a right upper lobe spiculated mass measuring up to 4 cm in maximum transverse diameter. It is irregularly marginated with adjacent pleural thickening. Allowing for differences of positioning, there is likely no significant change. Scarring is noted at the lung bases. There is pleural thickening and a small amount of fluid at the right lung base, increased from the previous exam. The left lung is clear. Limited images of the upper abdomen demonstrate a right adrenal mass measuring 2.9 x 2.6 cm with mean attenuation value of 25 Hounsfield units, indeterminate. The gallbladder is absent. IMPRESSION: Lobular spiculated right upper lobe mass, similar to the prior study with adjacent pleural thickening. Increased fluid in the right lung base. Stable indeterminate right adrenal nodule measuring up to 2.9 cm in greatest dimension. PET-CT may be of value to better assess physiologic status of the lung mass and right adrenal nodule. Reviewed, Interpreted and Dictated by Lee Lutz MD Transcribed by Anette Madison Authenticated and [facility]
== END 2025-05-12 23:59 | disposition home or self-care (01) ==
LOC: RAD 13:47
PROVIDERS: PCP Family Medicine; Visit Provider Internal Medicine Pulmonary Disease
DX: J92.9 Pleural plaque without asbestos (principal); E27.9 Disorder of adrenal gland, unspecified; R91.8 Other nonspecific abnormal finding of lung field; R06.02 Shortness of breath
CPT/HCPCS: 71250

== ENCOUNTER → 2025-06-12 20:25 | Outpatient (CLI) | payer MEDICARE, SELFPAY ==
--- OUTSIDE RECORDS SUMMARY | 2025-05-04 10:00 | XMS_ITS | Encounter Summary ---
Author Organization [facility] Address [address] [place] [address] Care Team Providers Care Emergency Room Orderly Name Role Phone Orlando Zhang MD Primary Care Provider [phone] Source Comments This information has been disclosed [...] release of HIV test results or diagnoses. [id number] Health Encounter Details Date Type Department Care Team (Late st Contact Info) Description 05/04/2025 10:00 AM EDT Procedure visit [facility] [place] [facility] [address] [address] Ruddy Rodriguez MD [address] [place] [address] Malignant neoplasm of overlapping sites of bladder (CMS-HCC) (Primary Dx) Social History Tobacco Use Types Packs/Day Years Used Date Smoking Tobacco: Former Cigarettes 1 47 Smokeless Tobacco: Never Comments:currently 1ppd, on Chanti2018 Alcohol Use Standard Drinks/Week Comments No 0 (1 standard drink = 0.6 oz pur e alcohol) Utilities Answer Date Recorded In the past 12 months has [employer] electric, gas, oil, or water company threatened [...] any time in the past 12 m [facility], were you homeless or living in a usp (including now)? No 01/24/2025 Comments No Sex and Gender Information Value Date Recorded Sex Assigned at Not on file Legal Sex Female 7:42 PM EST Gender Identity Not on file Sexual Orientation Not on file documented as of this encounter Progress Notes * Ruddy Rodriguez MD - 05/04/2025 10:00 AM EDTAddended by: RUDDY RODRIGUEZ on: 05/04/2025 12:10 PM Modules accepted: Orders * Opal Joe MA - 05/04/2025 10:00 AM EDT Disposable Scope Used No Cystoscope used for procedure: Flex Uro Scope 11 [facility] Flexible Cystoscope Log Cystoscope Label Serial Number Model Flex Uro 1 [id number] Olympus CYF-VHR Flex Uro 2 [id number] Olympus CYF Type V2R Flex Uro 3 [id number] Olympus CYF Type V2R Flex Uro 4 [id number] Olympus CYF Type V2R Flex Uro 5 [id number] Olympus CYF Type V2R Flex Uro 6 [id number] Olympus CYF Type V2R Flex Uro 7 [id number] CYF VHR Flex Uro 8 [id number] CYF VHR Flex Uro 9 [id number] CYF VHR Flex Uro 10 [id number] CYF VHR Flex Uro 11 [id number] CYF VHR Flex Uro 12 [id number] CYF VHR Uro Loaner 12 [id number] CYF VHR Uro Loaner 13 [id number] CYF VHR Uro Loaner 14 [id number] CYF VHR documented in this encounter Procedure Notes * Ruddy Rodriguez MD - 05/04/2025 10:00 AM EDT Procedure: Cystourethroscopy Surgeon: Ruddy Rodriguez MD Anesthesia: 2% lidocaine gel per urethra Indications: Erin Jung is a 69 y.o. female with a history of TaHG bladder cancer. The patient is here for cystoscopy. She did not tolerate iBCG and had a LG recurrence that I treated in January Description of Procedure: Prior to the procedure, informed consent was obtained. The procedure was described to the patient as well as the risks and benefits. Risks including bleeding, infection, pain, possible other indicated procedures depending on findings. After this, the patient was correctly identified, he was placed supine with all pressure points well padded. The external genitalia was prepped and draped in the usual sterile fashion. 2% lidocaine gel was injected per urethra for local anesthesia. A well-lubricated flexible cystoscope was carefully placed into the urethra. The urethra was WNL. The bladder was systematically surveyed and no apparent lesion was noted. The scope was retroflexed. The cystoscope was then slowly removed. Findings: no apparent recurrence Complications: None EBL minimal Assessment and plan: Erin Jung is a 69 y.o. female with a hx of TaHG bladder cancer. - Obtain urinary cytology. I will then reach out to her to discuss intravesical maintenance treatment. documented in this encounter Plan of Treatment Scheduled Orders Name Type Priority Associated Diagnoses Orde r Schedule Cytology, Urine Pathology and Cytology Routine Malignant neoplasm of overlapping sites of bladder (CMS-HCC) 1 Occurrences starting 05/04/2025 until 11/04/2026 documented as of this encounter Procedures Procedure Name Priority Date/Time Associated Diagnosis Comments NON-PARAEDUCATOR CYTOLOGY Routine 05/04/2025 12:0 0 AM EDT documented in this encounter Results * Non-Casino Beverage Server Cytology (05/04/2025 12:00 AM EDT) 05/04/2025 05/05/2025 Narrative [facility] - 05/04/2025 12:00 AM EDT CASE: [id number] PATIENT: ERIN JUNG Clinical History: Clinical Diagnosis: Malignant Neoplasm Of Overlapping Sites Of Bladder (CMS-HCC) [C67.8]-Primary Specimen Source: A. Urine Gross Description: Received 20ml Yellow Fluid CPT Code(s): 59759 X 1 Additional Information: DIAGNOSIS: Urine (thin prep) NO MALIGNANT CELLS IDENTIFIED MICROORGANISMS: Fungi consistent with Willa sp. are present Initial Evaluation performed by ANUSHA OLIVARES(ASCP) Logging Truck Driver Electronically signed 05/08/2025 06:43:29 AM The Diagnostician signing this report is located at [facility], [address] [place] [address], [id number], , CLIA ID: [id number] Final Diagnosis performed by Chris Perez D.O. Pathologist Electronically signed 05/08/2025 04:29:59 PM The Pathologist signing this report is located at [facility], [address] [place] [address], [id number], , CLIA ID: [id number] us Ruddy Rodriguez MD PATHOLOGY/CYTOLOGY ORDERABLES Final Result [facility] documented in this encounter Visit Diagnoses Diagnosis Malignant neoplasm of overlapping sites of bladder (CMS-HCC)- Primary documented in this encounter Administered Medications Inactive Administered Medications - up to 3 most recent administrations Medication Order MAR Action Action Date Dose Rate Site ciprofloxacin HCl (CIPRO) tablet 500 mg 500 mg, Oral, Once, On Odalis 05/04/25 at 1030, For 1 dose Given 05/04/2025 10:29 AM EDT 500 mg lidocaine HCL (XYLOCAINE) 2 % JelP 10 mL 10 mL, Mucous Membrane, Once, On Odalis 05/04/25 at 1030, For 1 dose Given 05/04/2025 10:28 AM EDT 10 mLs documented in this encounter Care Teams Emergency Room Orderly Relationship Specialty Start Date End Date Orlando Zhang MD [address] [place] [address] PCP - General Family Medicine 03/01/19 documented as of this encounter
--- OUTSIDE RECORDS SUMMARY | 2025-06-12 20:29 | XMS_ITS | Clinical Summary ---
Author Organization [facility] [place] [address] Care Team Providers Care Senior Ui Software Engineer Name Role Phone Unavailable Primary Care Provider [...] 2006 Bone Density Screening 2021 COVID-19 Vaccine (1 - 2023-2 5 season) 2025 Influenza Vaccine (#1) 2025 Hepatitis B Vaccine Aged Out No longe r eligible based on patient's age to complete this topic Meningococcal B Vaccine Aged Out No l onger eligible based on patient's age to complete this topic
--- OUTSIDE RECORDS SUMMARY | 2025-06-12 20:29 | XMS_ITS | Encounter Summary ---
Author Organization [facility] Address [address] [place] [address] Care Team Providers Care Automation Sales Manager Name Role Phone Orlando Zhang MD Primary Care Provider [phone] Source Comments This information has been disclosed [...] release of HIV test results or diagnoses. [id number] Reason for Visit * Reason Comments Appointment Good afternoonHelcynthia, The patient attached was unable to reach you in attempt to contact office. Patient calling to schedule: FU with Dr. Grant in ~3 months with cytology and office cysto Please contact this patient at your earliest convience. Thank you. Encounter Details Date Type Department Care Team (Late Contact Info) Description 04/21/2025 Telephone [facility] Urology at [facility] Office [address] [facility] [address] [place] [address] Trevon Grant MD [address] [place] [address] Appointment (Good afternoon//Carmen,//The patient attached was unable to reach you [...] any time in the past 12 m [facility], were you homeless or living in a intermediate (including now)? No 01/24/2025 Comments No Sex [...] on filedocumented in this encounter Care Teams Automation Sales Manager Relationship Specialty Start Date End Date Orlando Zhang MD [address] [place] [address] PCP - General Family Medicine 03/01/19 documented as of this encounter
--- OUTSIDE RECORDS SUMMARY | 2025-06-12 20:29 | XMS_ITS | Clinical Summary ---
Author Organization [facility] Address [address] [place] [address] Care Team Providers Care Sampler And Test Preparer Name Role Phone Orlando Zhang MD Primary Care Provider [phone] Source Comments This information has been disclosed [...] therelease of HIV test results or diagnoses. [id number] Allergies Active Allergy Reactions Criticality Noted [...] (04/04/2019): Added automatically from request for surgery [id number] Malignant neoplasm of lower lobe of right lung 0 03/31/2019 Cancer Staging:Clinical: Unsigned Pathologic stage from 04/28/2019:Stage IA3(pT1c, pN0, cM0) - Signed by Ruma Yang MD on 04/28/[address] of the chest 03/09/2019 Overview (03/09/2019): Added automatically from request for surgery [id number] Resolved Problems Problem Noted Date Diagnosed Date Resolved Date Squamous cell carcinoma of lung, right 04/28/2019 Encounters Date Type Department Care Team Description 06/08/2025 Telephone [facility] Urology at [facility] [address] [place] [address] Jarod Jones MA 06/08/2025 Telephone [facility] Urology at [facility] [address] [place] [address] Trevon Grant MD 06/08/2025 Telephone [facility] Urology at [facility] [address] [place] [address] Jarod Jones MA 06/01/2025 Orders Only [facility] [address] [place] [address] Trevon Grant MD 06/01/2025 Orders Only [facility] Urology at [facility] [address] [place] [address] Saray Hollis, ÁNGELA 05/30/2025 Telephone [facility] Urology at [facility] [address] [place] [address] Trevon Grant MD Results (Procedure 1st Attempt ) 05/04/2025 10:00 AM EDT Procedure visit [facility] Urology at [facility] [address] [place] [address] Trevon Grant MD 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 Patient calling to schedule: FU with Dr. Grant in ~3 months with cytology and office cysto //Please contact this patient at your earliest convience. //Thank you. ) from Last 3 Months Family History [...] the past 12 months has th e [employer], gas, oil, or water company threatened to [...] any time in the past 12 m [facility], were you homeless or living in a [...] 10/11/2021 10/11/2020 Immunization: COVID-19 ( - season) 2025 Immunization: Influenza (MyC guevara) (#1) 2025 07/13/2024, 09/10/2023, 10/11/2020, Additional history exists Diabetes Screening 01/25/2026 01/25/2025, 1 , 04/12/2019 Immunization: RSV (Adult) (1 - 1-dose 75+ series) 2031 Immunization: DTaP/Tdap/Td ( 2 - Td or Tdap) 01/19/2035 01/19/2025, 05/18/2003 Hepatitis C Screening (MyChart) Completed Procedures Procedure Name Priority Date/Time Associated Diagnosis Comments NON-COGNOS LEAD CYTOLOGY Routine 05/04/2025 12:0 0 AM EDT HEMOGLOBIN A1C Routine 01/25/2025 3:38 AM EDT ED HCV AB REFLEX TO HCV QUANT Routine 06/12/2024 9:00 PM EDT from Last 3 Months or Most Recently Relevant to Health Maintenance Results * Non-Production Department Supervisor Cytology (05/04/2025 12:00 AM EDT) 05/04/2025 05/05/2025 Narrative [facility] - 05/04/2025 12:00 AM EDT CASE: [id number] PATIENT: TRINIDAD JUNG Clinical History: Clinical Diagnosis: Malignant Neoplasm Of Overlapping Sites Of Bladder (CMS-HCC) [C67.8]-Primary Specimen Source: A. Urine Gross Description: Received 20ml Yellow Fluid CPT Code(s): 08616 X 1 Additional Information: DIAGNOSIS: Urine (thin prep) NO MALIGNANT CELLS IDENTIFIED MICROORGANISMS: Fungi consistent with Willa sp. are present Initial Evaluation performed by ANUSHA OLIVARES(ASCP) Molder Apprentice Electronically signed 05/08/2025 06:43:29 AM The Diagnostician signing this report is located at [facility], [address] [place] [address], [address], , CLIA ID: [id number] Final Diagnosis performed by Chris Perez D.O. Pathologist Electronically signed 05/08/2025 04:29:59 PM The Pathologist signing this report is located at [facility], [address] [place] [address], [address], , CLIA ID: [id number] us Trevon Grant MD PATHOLOGY/CYTOLOGY ORDERABLES Final Result Performing Organization Address [facility]/ZIP Co de Phone Number [facility] * (ABNORMAL) Hemoglobin A1c (01/25/2025 3:38 AM EDT) Hemoglobin A1C 6.8(H) 4.0 - 5.6 % 01/25/2025 4:47 AM EDT [facility] Comment: Hemoglobin A1c Interpretation Guidelines: [...] ORDERABLES Final Resul t Performing Organization Address [facility] Co de Phone Number [facility] [address] [facility] * ED HCV Ab Reflex To HCV Quant (06/12/2024 9:00 PM EDT) HCV Ab Nonreactive Nonreactive 06/12/2024 10:06 PM EDT [facility] Comment:Health Department no tified in accordance with reportable infectious disease guidelines. HCVAB Number 0.12 0.00 - 0.79 S/CO 06/12/2024 10:06 PM EDT [facility] Serum 06/12/2024 9:00 PM EDT 06/12/2024 9:10 PM EDT [facility] BLOOD ORDERABLES Final Res ult Performing Organization Address City/[facility] Co de Phone Number [facility] [address] [facility]. [address] from Last 3 Months or Most Recently Relevant to Health Maintenance Insurance [facility] SELECT MEDICARE Advance Directives For more information, please contact: [phone] * Full Code (Latest Code Status on File) Date Activated Date Inactivated Comments 01/24/2025 3:48 PM 01/25/2025 7:39 PM * Full Code Date Activated Date Inactivated Comments 07/15/2024 2:07 PM 07/17/2024 7:55 PM * Full Code Date Activated Date Inactivated Comments 04/11/2019 1:26 PM 04/16/2019 6:19 PM Care Teams Sampler And Test Preparer Relationship Specialty Start Date End Date Orlando Zhang MD [address] [place] [address] PCP - General Family Medicine 03/01/19
--- OUTSIDE RECORDS SUMMARY | 2025-06-12 20:29 | XMS_ITS | Encounter Summary ---
Author Organization [facility] Address [address] [place] [address] Care Team Providers Care Distribution Operations Manager Name Role Phone Orlando Zhang MD Primary Care Provider [phone] Source Comments This information has been disclosed [...] release of HIV test results or diagnoses. [id number] Health Encounter Details Date Type Department Care Team (Late st Contact Info) Description 04/24/2025 Telephone [facility] Urology at [facility] [address] [place] [address] Jarod Jones MA Social History Tobacco Use Types Packs/Day Years Used Date Smoking Tobacco: Former Cigarettes 1 47 Smokeless Tobacco: Never Comments:currently 1ppd, on Chanti 2019 Alcohol Use Standard Drinks/Week Comments No 0 (1 standard drink = 0.6 oz pur e alcohol) Utilities Answer Date Recorded In the past 12 months has [employer], gas, oil, or water company threatened to [...] any time in the past 12 m [facility], were you homeless or living [...] on filedocumented in this encounter Care Teams Distribution Operations Manager Relationship Specialty Start Date End Date Orlando Zhang MD [address] [place] [address] [address] PCP - General Family Medicine 03/01/19 documented as of this encounter
--- OUTSIDE RECORDS SUMMARY | 2025-06-12 20:29 | XMS_ITS | Encounter Summary ---
Author Organization [facility] Address [address] [place] [address] Care Team Providers Care Staffing Program Manager Name Role Phone Orlando Zhang MD Primary Care Provider [phone] Source Comments This information has been disclosed [...] release of HIV test results or diagnoses. [id number] Health Reason for Visit * Reason Comments Results Procedure 1st Attemp t Encounter Details Date Type Department Care Team (Late st Contact Info) Description 05/30/2025 Telephone [facility] Urology at [facility] [address] [address] Trevon Grant MD [address] [place] [address] Results (Procedure 1st Attempt ) Social History Tobacco Use Types Packs/Day Years Used Date Smoking Tobacco: Former Cigarettes 1 47 Smokeless Tobacco: Never Comments:currently 1ppd, on Chanti 2019 Alcohol Use Standard Drinks/Week Comments No 0 (1 standard drink = 0.6 oz pur e alcohol) Utilities Answer Date Recorded In the past 12 months has [employer], gas, oil, or water company [...] any time in the past 12 m [facility], were you homeless or living in a care home (including now)? No 01/24/2025 Comments No Sex and Gender Information Value Date Recorded Sex Assigned at Not on file Legal Sex Female 7:42 PM EST Gender Identity Not on file Sexual Orientation Not on file documented as of this encounter Miscellaneous Notes * Telephone Encounter - Trevon Grant MD - 05/31/2025 4:03 PM EDT I called the patient to discuss subsequent steps. I left a voice mail. The patient was not able to tolerate iBCG. I would recommend proceeding with a cycle of maintenancegemcitabine (once a week for 3 weeks). FU with me in ~3 months with cytology and cysto * Telephone Encounter - Mireya Santo MA - 05/30/2025 11:22 AM EDT Pt calling to strenuously req a return call from . Pt had a procedure on 05/04 and documented that he would contact pt w/results and offer some path forward. Please advise. documented in this encounter Plan of Treatment Not on file documented as of this encounter Visit Diagnoses Not on filedocumented in this encounter Care Teams Staffing Program Manager Relationship Specialty Start Date End Date Orlando Zhang MD [address] [place] [address] [address] PCP - General Family Medicine 03/01/19 documented as of this encounter
--- OUTSIDE RECORDS SUMMARY | 2025-06-12 20:29 | XMS_ITS | Encounter Summary ---
Author Organization [facility] Address [facility] [place] [address] Care Team Providers Care Skidway Worker Name Role Phone Orlando Zhang MD Primary Care Provider [phone] Source Comments This information has been disclosed [...] release of HIV test results or diagnoses. [id number] Health Encounter Details Date Type Department Care Team (Late st Contact Info) Description 06/01/2025 Orders Only [facility] Urology at [facility] [address] [address] Saray Hollis, RN Social History Tobacco Use Types Packs/Day Years Used Date Smoking Tobacco: Former Cigarettes 1 47 Smokeless Tobacco: Never Comments:currently 1ppd, on Chantix 2019 Alcohol Use Standard Drinks/Week Comments No 0 (1 standard drink = 0.6 oz pur e alcohol) Utilities Answer Date Recorded In the past 12 months has [employer], gas, oil, or water company threatened to [...] in the past 12 m [facility], were you homeless or living in a long term (including now)? No 01/24/2025 Comments No Sex and Gender Information Value Date Recorded Sex Assigned at Not on file Legal Sex Female 7:42 PM EST Gender Identity Not on file Sexual Orientation Not on file documented as of this encounter Plan of Treatment Not on file documented as of this encounter Visit Diagnoses Not on filedocumented in this encounter Care Teams Skidway Worker Relationship Specialty Start Date End Date Orlando Zhang MD [address] [place] [address] [address] PCP - General Family Medicine 03/01/19 documented as of this encounter
--- OUTSIDE RECORDS SUMMARY | 2025-06-12 20:29 | XMS_ITS | Encounter Summary ---
Author Organization [facility] Address [address] [place] [address] Care Team Providers Care Screening Nurse Name Role Phone Orlando Zhang MD Primary Care Provider [phone] Source Comments This information has been disclosed [...] release of HIV test results or diagnoses. [id number] Health Encounter Details Date Type Department Care Team (Late st Contact Info) Description 06/01/2025 Orders Only [facility] [address] [place], [place] [id number] Trevon Grant MD [address] [place] [address] Social History Tobacco Use Types Packs/Day Years Used Date Smoking Tobacco: Former Cigarettes 1 47 Smokeless Tobacco: Never Comments:currently 1ppd, on Chantix 2019 Alcohol Use Standard Drinks/Week Comments No 0 (1 standard drink = 0.6 oz pur e alcohol) Utilities Answer Date Recorded In the past 12 months has [employer], gas, oil, or water company threatened to [...] any time in the past 12 m [facility], were you homeless or living in a [...] on filedocumented in this encounter Care Teams Screening Nurse Relationship Specialty Start Date End Date Orlando Zhang MD [address] [place] [address] PCP - General Family Medicine 03/01/19 documented as of this encounter
--- OUTSIDE RECORDS SUMMARY | 2025-06-12 20:29 | XMS_ITS | Encounter Summary ---
Author Organization [facility] Address [address] [place] [address] Care Team Providers Care Financial Services Associate Name Role Phone Orlando Zhang MD Primary Care Provider [phone] Source Comments This information has been disclosed [...] release of HIV test results or diagnoses. [id number] Health Encounter Details Date Type Department Care Team (Late st Contact Info) Description 06/08/2025 Telephone [facility] Urology at [facility] [address] [place] [address] Jarod Jones MA Social History Tobacco Use Types Packs/Day Years Used Date Smoking Tobacco: Former Cigarettes 1 47 Smokeless Tobacco: Never Comments:currently 1ppd, on Chanti 2019 Alcohol Use Standard Drinks/Week Comments No 0 (1 standard drink = 0.6 oz pur e alcohol) Utilities Answer Date Recorded In the past 12 months has [employer], gas, oil, or water company threatened to [...] any time in the past 12 m [facility], were you homeless or living in a residential (including now)? No 01/24/2025 Comments No Sex and Gender Information Value Date Recorded Sex Assigned at Not on file Legal Sex Female 7:42 PM EST Gender Identity Not on file Sexual Orientation Not on file documented as of this encounter Miscellaneous Notes * Telephone Encounter - Jarod Jones MA - 06/08/2025 10:37 AM EDT Left pt a VM to get scheduled for her Gemcitabine once a week for 3 weeks with the nurse documented in this encounter Plan of Treatment Not on file documented as of this encounter Visit Diagnoses Not on filedocumented in this encounter Care Teams Financial Services Associate Relationship Specialty Start Date End Date Orlando Zhang MD [address] [place] [address] PCP - General Family Medicine 03/01/19 documented as of this encounter
--- OUTSIDE RECORDS SUMMARY | 2025-06-12 20:29 | XMS_ITS | Encounter Summary ---
Author Organization [facility] Address [address] [place] [address] Care Team Providers Care Supervisor Porcelain Department Name Role Phone Orlando Zhang MD Primary Care Provider [phone] Source Comments This information has been disclosed [...] release of HIV test results or diagnoses. [id number] Health Encounter Details Date Type Department Care Team (Late st Contact Info) Description 06/08/2025 Telephone [facility] Urology at [place] [facility] [address] [place] [address] Jarod Jones MA Social History Tobacco Use Types Packs/Day Years Used Date Smoking Tobacco: Former Cigarettes 1 47 Smokeless Tobacco: Never Comments:currently 1ppd, on Chanti 2019 Alcohol Use Standard Drinks/Week Comments No 0 (1 standard drink = 0.6 oz pur e alcohol) Utilities Answer Date Recorded In the past 12 months has [employer], gas, oil, or water company threatened to [...] you homeless or living in a senior care (including now)? No 01/24/2025 Comments No Sex and Gender Information Value Date Recorded Sex Assigned at Not on file Legal Sex Female 7:42 PM EST Gender Identity Not on file Sexual Orientation Not on file documented as of this encounter Miscellaneous Notes * Telephone Encounter - Jarod Jones MA - 06/08/2025 12:08 PM EDT Left pt a VM adv her cysto will be 10/11 at 11:00 A.M if that day and time does not work please giveus a call documented in this encounter Plan of Treatment Not on file documented as of this encounter Visit Diagnoses Not on filedocumented in this encounter Care Teams Supervisor Porcelain Department Relationship Specialty Start Date End Date Orlando Zhang MD [address] [place] [address] PCP - General Family Medicine 03/01/19 documented as of this encounter
--- OUTSIDE RECORDS SUMMARY | 2025-06-12 20:29 | XMS_ITS | Encounter Summary ---
Author Organization [facility] Address [address] [place] [address] Care Team Providers Care House Superintendent Name Role Phone Orlando Zhang MD Primary Care Provider [phone] Source Comments This information has been disclosed [...] release of HIV test results or diagnoses. [id number] Health Encounter Details Date Type Department Care Team (Late st Contact Info) Description 06/08/2025 Telephone [facility]rology at [place] [facility] [address] [address] Trevon Grant MD [address] [place] [address] Social History Tobacco Use Types Packs/Day Years Used Date Smoking Tobacco: Former Cigarettes 1 47 Smokeless Tobacco: Never Comments:currently 1ppd, on Chanti 2019 Alcohol Use Standard Drinks/Week Comments No 0 (1 standard drink = 0.6 oz pur e alcohol) Utilities Answer Date Recorded In the past 12 months has [employer] electric, gas, oil, or water company [...] any time in the past 12 m [facility], were you homeless or living in a detention (including now)? No 01/24/2025 Comments No Sex and Gender Information Value Date Recorded Sex Assigned at Not on file Legal Sex Female 7:42 PM EST Gender Identity Not on file Sexual Orientation Not on file documented as of this encounter Miscellaneous Notes * Telephone Encounter - Trevon Grant MD - 06/08/2025 12:04 PM EDT I called the patient to discuss next steps. The patient did not receive my voice mails as she has difficulties with that. We discussed appropriateness of maintenance therapy, also in light of suboptimal BCG treatment. Thepatient verbalized understanding but she would like to proceed with observation and surgery if needed. She lives ~1h away and coming to for treatment can result in financial toxicity. I perfectly understand that. We will follow up with a cystoscopy and cytology in October. * Telephone Encounter - Trevon Grant MD - 06/08/2025 12:03 PM EDT ----- Message from ASHOK Olivera sent at 06/08/2025 11:04 AM EDT ----- Hi Dr. Grant Pt stated she would like to talk to you first before scheduling her Gemcitabine she stated she's been trying to speak with you but you never gave her a call wants to make sure if she really need it she asked can you please give her a call. Thank you documented in this encounter Plan of Treatment Not on file documented as of this encounter Visit Diagnoses Not on filedocumented in this encounter Care Teams House Superintendent Relationship Specialty Start Date End Date Orlando Zhang MD [address] [place] [address] PCP - General Family Medicine 03/01/19 documented as of this encounter
--- OUTSIDE RECORDS SUMMARY | 2025-06-12 20:29 | XMS_ITS | Clinical Summary ---
Author Organization [facility] Address [address] [place] [address] Care Team Providers Care Rabbit Breeder Name Role Phone Orlando Zhang MD Primary Care Provider [phone] Allergies Active Allergy Reactions Criticality Noted Date [...] 1 tablet by mouth Daily. 11/01/19 Active sennosides-docusat e (PERICOLACE) 8.6-50 MG per [...] SCREENING 10/21/2019 COVID-19 Vaccine ( - season) 2025 INFLUENZA VACCINE 07/05/2025 Advance Directives * CPR (Attempt to Resuscitate) (Latest Code Status on File) Date Activated Date Inactivated Comments 10/21/2019 9:45 PM 10/31/2019 3:43 PM Question Answer Comments Code Status (Patient has no pulse and is not breathing): CPR (Attempt to Resuscitate) Medical Interventions (Patie nt has pulse or is breathing): Full Level Of Support Discussed With: Patient Care Teams Rabbit Breeder Relationship Specialty Start Date End Date Orlando Zhang MD [address] [place] [address] PCP - General Family Medicine 10/21/19
--- OUTSIDE RECORDS SUMMARY | 2025-06-12 20:29 | XMS_ITS ---
Author Organization [facility] Address [address] [place] [address] Care Team Providers Care Volcanology Teacher Name Role Phone Orlando Zhang MD Primary Care Provider [phone] Active Problems Problem Noted Date Diagnosed Date Malignant neoplasm of overlapping sites of bladd er 05/04/2025 Bladder mass 06/30/2024 Calculus of ureter 06/30/2024 Lung nodule 04/04/2019 Overview (04/04/2019): Added automatically from request for surgery [id number] Malignant neoplasm of lower lobe of right lung 0 03/31/2019 Cancer Staging:Clinical: Unsigned Pathologic stage from 04/28/2019:Stage IA3(pT1c, pN0, cM0) - Signed by Ruma Yang MD on 04/28/[address] of the chest 03/09/2019 Overview (03/09/2019): Added automatically from request for surgery [id number] Current Treatment and Therapy Plans OP Urology Gemcitabine Bladder Instillation for use in Clinic* Plan Start Date: 06/22/2025 Plan Provider:Trevon Grant MD Linked Problems Bladder massMalignant neopla sm of overlapping sites of bladder (CMS-HCC) Treatment Medications gemcitabine (GEMZAR) bladder instillation Past Treatment and Therapy Plans Resolved Problems Problem Noted Date Diagnosed Date Resolved Date Squamous cell carcinoma of lung, right 04/28/2019
== END ==
LOC: SL 20:27
PROVIDERS: PCP Family Medicine; Visit Provider Family Medicine
DX: G47.33 Obstructive sleep apnea (adult) (pediatric) (principal); G47.36 Sleep related hypoventilation in conditions classified elsewhere
CPT/HCPCS: 95811

== ENCOUNTER 2025-07-25 10:47 | Outpatient (CLI) | payer MEDICARE, SELFPAY ==
--- OUTSIDE RECORDS SUMMARY | 2025-06-13 07:49 | XMS_ITS | Encounter Summary ---
Author Organization [employer] ([place], [place], [place], [place]) Address [address] [place] [address] Care Team Providers Care Tie Hacker Name Role Phone Unavailable Primary Care Provider Unavailabl e Reason for Referral * CAT Scan (Routine) - Pending Review Specialty Diagnoses / Procedures Referred By Contac t Referred To Contact Radiology Diagnoses Lung nodule Procedures PET/CT Skull Base-Mid Thigh (Whole Body) Tim Thomas MD [address] [place] [address] [address] Phone: tel: fax: Referral ID Status Reason Start Date Expiration Date V isits Requested Visits Authorized [id number] Pending Review 06/12/2025 06/12/2026 1 1 Reason for Visit * CAT Scan (Routine) - Pending Review Specialty Diagnoses / Procedures Referred By Contac t Referred To Contact Radiology Diagnoses Lung nodule Procedures PET/CT Skull Base-Mid Thigh (Whole Body) Tim Thomas MD [address] [place] [address] Phone: tel: fax: Referral ID Status Reason Start Date Expiration Date V isits Requested Visits Authorized [id number] Pending Review 06/12/2025 06/12/2026 1 1 Encounter Details Date Type Department Care Team (Latest Contact Info) Description 06/13/2025 7:49 AM EDT - 06/13/2025 11:59 PM EDT Hospital Encounter [facility] PET CT - [address] [employer] [address] [employer] [place] [address] Tim Thomas MD [address] [id number] Lung nodule Discharge Disposition: Home or Self [...]
--- OUTSIDE RECORDS SUMMARY | 2025-07-25 10:51 | XMS_ITS | Encounter Summary ---
Author Organization [facility] Address [address] [place] [address] Care Team Providers Care Steel Sash Erector Name Role Phone Orlando Zhang MD Primary Care Provider [phone] Source Comments This information has been disclosed [...] release of HIV test results or diagnoses. [id number] Health Encounter Details Date Type Department Care Team (Late st Contact Info) Description 06/08/2025 Telephone [facility] [place] [facility] [address] [address] Trevon Grant MD [address] [place] [address] Social History Tobacco Use Types Packs/Day Years Used Date Smoking Tobacco: Former Cigarettes 1 47 Smokeless Tobacco: Never Comments:currently 1ppd, on Chanti 2019 Alcohol Use Standard Drinks/Week Comments No 0 (1 standard drink = 0.6 oz pur e alcohol) Utilities Answer Date Recorded In the past 12 months has [employer], gas, oil, or water company [...] any time in the past 12 m [facility], were you homeless or living in a snf (including now)? No 01/24/2025 Comments No Sex [...] on filedocumented in this encounter Care Teams Steel Sash Erector Relationship Specialty Start Date End Date Orlando Zhang MD [address] [place] [address] PCP - General Family Medicine 03/01/19 documented as of this encounter
--- OUTSIDE RECORDS SUMMARY | 2025-07-25 10:51 | XMS_ITS | Clinical Summary ---
Author Organization [facility] Address [address] [facility] [address] [place] [id number] Phone Care Team Providers Care Variety Lathe Operator Name Role Phone Camelia Patterson MD [phone] Conditions or Problems No information available. Medications No information available. Medications Administered No information available. Allergies, Adverse Reactions, Alerts No information available. Results No information available. Plan of Care No information available. Procedures No information available. Vital Signs No information available. Immunizations No information available. Advance Directives No information available.
--- OUTSIDE RECORDS SUMMARY | 2025-07-25 10:51 | XMS_ITS | Clinical Summary ---
Author Organization [facility] [place] [address] Care Team Providers Care Product Expert Name Role Phone Unavailable Primary Care Provider [...] Density Screening 2021 COVID-19 Vaccine ( - 2024-2 6 season) 2025 Influenza Vaccine (#1) 2025 Hepatitis B Vaccine Aged Out No longe r eligible based on patient's age to complete this topic Meningococcal B Vaccine Aged Out No l onger eligible based on patient's age to complete this topic
--- OUTSIDE RECORDS SUMMARY | 2025-07-25 10:51 | XMS_ITS | Encounter Summary ---
Author Organization [facility] Address [address] [place] [address] Care Team Providers Care System Admin Name Role Phone Orlando Zhang MD Primary Care Provider [phone] Source Comments This information has been disclosed [...] release of HIV test results or diagnoses. [id number] Health Encounter Details Date Type Department Care Team (Late st Contact Info) Description 06/08/2025 Telephone [facility] [facility] [address] [place] [address] Jarod Jones MA Social History Tobacco Use Types Packs/Day Years Used Date Smoking Tobacco: Former Cigarettes 1 47 Smokeless Tobacco: Never Comments:currently 1ppd, on Chanti 2019 Alcohol Use Standard Drinks/Week Comments No 0 (1 standard drink = 0.6 oz pur e alcohol) Utilities Answer Date Recorded In the past 12 months has [employer], gas, oil, or water company threatened to [...] any time in the past 12 m [facility], were you homeless or living [...] on filedocumented in this encounter Care Teams System Admin Relationship Specialty Start Date End Date Orlando Zhang MD [address] [address] PCP - General Family Medicine 03/01/19 documented as of this encounter
--- OUTSIDE RECORDS SUMMARY | 2025-07-25 10:51 | XMS_ITS | Encounter Summary ---
Author Organization [facility] Address [address] [place] [address] Care Team Providers Care Hydraulic Mechanic Name Role Phone Orlando Zhang MD Primary Care Provider [phone] Source Comments This information has been disclosed [...] release of HIV test results or diagnoses. [id number] Health Encounter Details Date Type Department Care Team (Late st Contact Info) Description 06/08/2025 Telephone [facility] at [place] [facility] [address] [place] [address] Jarod Jones MA Social History Tobacco Use Types Packs/Day Years Used Date Smoking Tobacco: Former Cigarettes 1 47 Smokeless Tobacco: Never Comments:currently 1ppd, on Chanti 2019 Alcohol Use Standard Drinks/Week Comments No 0 (1 standard drink = 0.6 oz pur e alcohol) Utilities Answer Date Recorded In the past 12 months has [employer], gas, oil, or water company threatened to [...] time in the past 12 m [facility], were you homeless or living in a group home (including now)? No 01/24/2025 Comments No [...] on filedocumented in this encounter Care Teams Hydraulic Mechanic Relationship Specialty Start Date End Date Orlando Zhang MD [address] [place] [address] PCP - General Family Medicine 03/01/19 documented as of this encounter
--- OUTSIDE RECORDS SUMMARY | 2025-07-25 10:51 | XMS_ITS ---
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
--- OUTSIDE RECORDS SUMMARY | 2025-07-25 10:52 | XMS_ITS | Clinical Summary ---
Author Organization [employer] ([place], [place], [place], [place]) Address [address] [place] [address] Care Team Providers Care Welding Machine Setter Name Role Phone Unavailable Primary Care Provider Unavailabl e Encounters Date Type Department Care Team Description 06/13/2025 7:49 AM EDT - 06/13/2025 11:59 PM EDT Hospital Encounter [facility] PET CT - [address] [place] [address] Tim Thomas MD Lung nodule Discharge Disposition: Home or Self Care from Last 3 Months Social History Tobacco Use Types Packs/Day Years Used Date Smoking Tobacco: Never Assessed Comments Unknown Sex and Gender Information Value Date Recorded Sex Assigned at Not on file Legal Sex Female 3:40 PM CDT Gender Identity Not on file Sexual Orientation Not on file Plan of Treatment Health Maintenance Due Date Last Done Comments CT Colonography 1956 Colonoscopy 1956 Colorectal Cancer Screening 1956 DXA SCAN 1956 FOBT/FIT 1956 Fit-DNA (Cologuard) 1956 Sigmoidoscopy 1956 Depression Screening (12+) 1968 Tobacco Cessation Counseling and Screening (12+) 1968 Hepatitis C Screening 1974 Breast Cancer Screening 1996 Shingles Vaccine (Zoster) (1 of 2) 2006 Respiratory Syncytial Virus (RSV) Adult or (1 - Risk 60-74 years 1-dose series) 2016 Pneumococcal 50+ years (2 of 2 - PCV) 10/11/202104/2021 Falls Risk Screening 10/05/2024 COVID-19 VACCINE (1 - 2023- season) 2025 Influenza Vaccine (#1) 2025 07/13/2024, 2022 DTAP/TDAP/TD VACCINES (3 - Td or Tdap) 01/19/2035, 05/18/2003 Procedures Procedure Name Priority Date/Time Associated Diagnosis Comments P.E.T./CT SKULL BASE TO MID-THIGH Routine 06/13/2025 10:23 AM EDT Lung nodule from Last 3 Months Results * PET/CT Skull Base-Mid Thigh (Whole [...] MD IMG CT ORDERABLES Final Resul t from Last 3 Months
--- OUTSIDE RECORDS SUMMARY | 2025-07-25 10:52 | XMS_ITS | Encounter Summary ---
Author Organization [facility] Address [address] [place] [address] Care Team Providers Care Maintenance Technician 3Rd Shift Name Role Phone Orlando Zhang MD Primary [...] release of HIV test results or diagnoses. [id number] Health Encounter Details Date Type Department Care Team (Late st Contact Info) Description 06/01/2025 Orders Only [facility] [address] [place], [place] [id number] Trevon Grant MD [address] [place] [address] Social History Tobacco Use Types Packs/Day Years Used Date Smoking Tobacco: Former Cigarettes 1 47 Smokeless Tobacco: Never Comments:currently 1ppd, on Chantix 2019 Alcohol Use Standard Drinks/Week Comments No 0 (1 standard drink = 0.6 oz pur e alcohol) Utilities Answer Date Recorded In the past 12 months has [employer], gas, oil, or water company threatened to [...] time in the past 12 m [facility], were you homeless or living in a jail (including now)? No 01/24/2025 Comments No Sex and Gender Information Value Date Recorded Sex Assigned at Not on file Legal Sex Female 7:42 PM EST Gender Identity Not on file Sexual Orientation Not on file documented as of this encounter Plan of Treatment Not on file documented as of this encounter Visit Diagnoses Not on filedocumented in this encounter Care Teams Maintenance Technician 3Rd Shift Relationship Specialty Start Date End Date Orlando Zhang MD [address] [place] [address] [address] PCP - General Family Medicine 03/01/19 documented as of this encounter
--- OUTSIDE RECORDS SUMMARY | 2025-07-25 10:52 | XMS_ITS | Clinical Summary ---
Author Organization [facility] Address [address] [place] [address] Care Team Providers Care Water And Gas Helper Name Role Phone Orlando Zhang MD Primary Care Provider [phone] Source Comments This information has been disclosed [...] therelease of HIV test results or diagnoses. 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 Encounters Date Type Department Care Team Description 06/08/2025 Telephone [facility] Urology at [facility] [address] [place] [address] Jarod Jones MA 06/08/2025 Telephone [facility]rology at [facility] [address] [facility] [address] [place] [address] Trevon Grant MD 06/08/2025 Telephone [facility]rology at [facility] [address] [facility] [address] [place] [address] Jarod Jones MA 06/01/2025 Orders Only [facility] [address] [place] [address] Trevon Grant MD 06/01/2025 Orders Only [facility]rology at [facility] [address] [facility] [address] [place] [address] Saray Hollis RN 05/30/2025 Telephone [facility]rology at [facility] [address] [facility] [address] [place] [address] Trevon Grant MD Results (Procedure 1st Attempt ) 05/04/2025 10:00 AM EDT Procedure visit [facility]rology at [facility] [address] [facility] [address] [place] [address] Trevon Grant MD Malignant neoplasm of overlapping sites of bladder (CMS-HCC) (Primary Dx) 04/24/2025 Telephone [facility] at [facility] [address] [facility] [address] [place] [address] Jarod Jones MA from Last 3 Months Family History Medical History Relation Comments Cancer Father colon cancer Atrial fibrillation Mother Cancer Mother breast cancer Stroke Mother Relation Status Comments Father Mother Sister Social History Tobacco Use Types Packs/Day Years Used Date Smoking Tobacco: Former Cigarettes 1 47 Smokeless Tobacco: Never Tobacco Cessation:Counseling Given: Not Answered Comments:currently 1ppd, on Chanti2018 Alcohol Use Standard [...] any time in the past 12 m [facility], were you homeless or [...] Procedure Name Priority Date/Time Associated Diagnosis Comments NON-REGISTERED NURSE SURGICAL SERVICES CYTOLOGY Routine 05/04/2025 12:0 0 AM EDT HEMOGLOBIN A1C Routine 01/25/2025 3:38 AM EDT ED HCV AB REFLEX TO HCV QUANT Routine 06/12/2024 9:00 PM EDT from Last 3 Months or Most Recently Relevant to Health Maintenance Results * Non-Reporting Process Consultant Cytology (05/04/2025 12:00 AM EDT) 05/04/2025 05/05/2025 Narrative [facility] - 05/04/2025 12:00 AM EDT CASE: [id number] PATIENT: TRINIDAD JUNG Clinical History: Clinical Diagnosis: Malignant Neoplasm Of Overlapping Sites Of Bladder ([facility]-HCC) [C67.8]-Primary Specimen Source: A. Urine Gross Description: Received 20ml Yellow Fluid CPT Code(s): 37514 X 1 Additional Information: DIAGNOSIS: Urine (thin prep) NO MALIGNANT CELLS IDENTIFIED MICROORGANISMS: Fungi consistent with Willa sp. are present Initial Evaluation performed by ANUSHA OLIVARES(ASCP) Glass Fitter Electronically signed 05/08/2025 06:43:29 AM The Diagnostician signing this report is located at [facility], [address] [place] [address], [address], , CLIA ID: [id number] Final Diagnosis performed by Chris Perez D.O. Pathologist Electronically signed 05/08/2025 04:29:59 PM The Pathologist signing this report is located at [facility], [address] [place] [address], [id number], , CLIA ID: [id number] us Trevon Grant MD PATHOLOGY/CYTOLOGY ORDERABLES Final Result [facility] * (ABNORMAL) Hemoglobin A1c (01/25/2025 3:38 AM EDT) Hemoglobin A1C 6.8(H) 4.0 - 5.6 % 01/25/2025 4:47 AM EDT [facility] Comment: Hemoglobin A1c Interpretation [...] ORDERABLES Final Resul t Performing Organization Address City/[facility]/ZIP Co de Phone Number [facility] [address] [facility]. [address] * ED HCV Ab Reflex To HCV Quant (06/12/2024 9:00 PM EDT) HCV Ab Nonreactive Nonreactive 06/12/2024 10:06 PM EDT [facility] Comment:Health Department no tified in accordance with reportable infectious disease guidelines. HCVAB Number 0.12 0.00 - 0.79 S/CO 06/12/2024 10:06 PM EDT [facility] Serum 06/12/2024 9:00 PM EDT 06/12/2024 9:10 PM EDT us Oleg[facility] BLOOD ORDERABLES Final Res ult Performing Organization Address City/[facility] Co de Phone Number [facility] [address] [facility]. [address] from Last 3 Months or Most Recently Relevant to Health Maintenance Insurance [facility] SELECT MEDICARE Advance Directives For more information, please contact: [phone] * Full Code (Latest Code Status on File) Date Activated Date Inactivated Comments 01/24/2025 3:48 PM 01/25/2025 7:39 PM * Full Code Date Activated Date Inactivated Comments 07/15/2024 2:07 PM 07/17/2024 7:55 PM * Full Code Date Activated Date Inactivated Comments 04/11/2019 1:26 PM 04/16/2019 6:19 PM Care Teams Water And Gas Helper Relationship Specialty Start Date End Date Orlando Zhang MD [address] [place] [address] PCP - General Family Medicine 03/01/19
--- OUTSIDE RECORDS SUMMARY | 2025-07-25 10:52 | XMS_ITS | Encounter Summary ---
Author Organization [facility] Address [facility] [place] [address] Care Team Providers Care Farmworker Egg Producing Farm Name Role Phone Orlando Zhang MD Primary [...] release of HIV test results or diagnoses. [id number] Health Encounter Details Date Type Department Care Team (Late st Contact Info) Description 06/01/2025 Orders Only [facility] [place] [facility] [address] [address] Saray Hollis, RN Social History Tobacco Use Types Packs/Day Years Used Date Smoking Tobacco: Former Cigarettes 1 47 Smokeless Tobacco: Never Comments:currently 1ppd, on Chantix 2019 Alcohol Use Standard Drinks/Week Comments No 0 (1 standard drink = 0.6 oz pur e alcohol) Utilities Answer Date Recorded In the past 12 months has [employer], gas, oil, or water company threatened to [...] were you homeless or living in a [place] [facility] care facility (including now)? No 01/24/2025 Comments No Sex and Gender Information Value Date Recorded Sex Assigned at Not on file Legal Sex Female 7:42 PM EST Gender Identity Not on file Sexual Orientation Not on file documented as of this encounter Plan of Treatment Not on file documented as of this encounter Visit Diagnoses Not on filedocumented in this encounter Care Teams Farmworker Egg Producing Farm Relationship Specialty Start Date End Date Orlando Zhang MD [address] [place] [address] PCP - General Family Medicine 03/01/19 documented as of this encounter
--- OUTSIDE RECORDS SUMMARY | 2025-07-25 10:52 | XMS_ITS | Clinical Summary ---
Author Organization [facility] Address [address] [place] [address] Care Team Providers Care Foundry Superintendant Name Role Phone Orlando Zhang MD Primary Care Provider [phone] Allergies Active Allergy Reactions Criticality Noted Date Comments Diclofenac Nausea And Vomiting 10/21/2019 Medications omeprazole (priLOSEC) 40 MG capsule Take 40 mg by mouth Daily. Active aspirin 81 MG chewable tablet Chew 1 tablet Daily. 11/01/19 20 Active calcium carbonate EX (TUMS EX) 750 MG chewable tablet Chew 1 tablet 2 (Two) Times a Day As Needed for Indigestion or Heartburn. 10/31/19 20 Active ipratropium-albute rol (DUO-NEB) 0.5-2.5 mg/3 ml nebulizer Take 3 mL by nebulization Every 4 (Four) Hours As Needed for Wheezing or Shortness of Air. 360 mL 10/31/19 20 Active apixaban (ELIQUIS) 5 MG tablet tabletIndications: DVT/PE (active thrombosis),Other - full anticoagulation Take 1 tablet by mouth Every 12 (Twelve) Hours. Indications: DVT/PE (active thrombosis), Other - full anticoagulation 60 tablet 10/31/19 Active atorvastatin (LIPITOR) 80 MG tablet Take 1 tablet by mouth Every Night. 10/31/19 20 Active amLODIPine (NORVASC) 5 MG tablet Take 1 tablet by mouth Daily. 11/01/19 20 Active torsemide (DEMADEX) 10 MG tablet Take [...] ANNUAL PHYSICAL 10/21/2019 HEPATITIS C SCREENING 10/21/2019 INFLUENZA VACCINE 05/05/2025 COVID-19 Vaccine ( season) 2025 Advance Directives * CPR (Attempt to Resuscitate) (Latest Code Status on File) Date Activated Date Inactivated Comments 10/21/2019 9:45 PM 10/31/2019 3:43 PM Question Answer Comments Code Status (Patient has no pulse and is not breathing): CPR (Attempt to Resuscitate) Medical Interventions (Patie nt has pulse or is breathing): Full Level Of Support Discussed With: Patient Care Teams Foundry Superintendant Relationship Specialty Start Date End Date Orlando Zhang MD [address] [place] [address] PCP - General Family Medicine 10/21/19
--- OUTSIDE RECORDS SUMMARY | 2025-07-25 10:52 | XMS_ITS | Encounter Summary ---
Author Organization [facility] Address [address] [place] [address] Care Team Providers Care Laminator Hand Name Role Phone Orlando Zhang MD Primary Care Provider [phone] Source Comments This information has been disclosed [...] release of HIV test results or diagnoses. [id number] Health Reason for Visit * Reason Comments Results Procedure 1st Attemp t Encounter Details Date Type Department Care Team (Late st Contact Info) Description 05/30/2025 Telephone [facility]rology at [place] [facility] [address] [address] Trevon Grant MD [address] [place] [address] Results (Procedure 1st Attempt ) Social History Tobacco Use Types Packs/Day Years Used Date Smoking Tobacco: Former Cigarettes 1 47 Smokeless Tobacco: Never Comments:currently 1ppd, on Chanti 2019 Alcohol Use Standard Drinks/Week Comments No 0 (1 standard drink = 0.6 oz pur e alcohol) Utilities Answer Date Recorded In the past 12 months has [employer], gas, oil, or water company threatened [...] any time in the past 12 m [facility], were you homeless or living in a [...] on filedocumented in this encounter Care Teams Laminator Hand Relationship Specialty Start Date End Date Orlando Zhang MD [address] [place] [address] [address] PCP - General Family Medicine 03/01/19 documented as of this encounter
--- OUTSIDE RECORDS SUMMARY | 2025-07-25 10:52 | XMS_ITS | Referral Summary ---
Author Organization [employer] ([place], [place], [place], [place]) Address [address] [facility] [facility] [place] [address] Care Team Providers Care Waste Disposal Plant Operator Name Role Phone Unavailable Primary Care Provider Unavailabl e Encounters Date Type Department Care Team Description 06/13/2025 7:49 AM EDT - 06/13/2025 11:59 PM EDT Hospital Encounter [facility] PET CT - [address] [place] [address] Tim Thomas MD Lung nodule Discharge Disposition: Home or Self Care from Last 3 Months Social History Tobacco Use Types Packs/Day Years Used Date Smoking Tobacco: Never Assessed Comments Unknown Sex and Gender Information Value Date Recorded Sex Assigned at Not on file Legal Sex Female 3:40 PM CDT Gender Identity Not on file Sexual Orientation Not on file Plan of Treatment Not on file Procedures Procedure Name Priority Date/Time Associated Diagnosis [...] dictated by Dr. Alfa Mclean. Transcribed by Fley Antunez PA-C. us Tim Thomas MD IMG CT ORDERABLES Final Resul t from Last 3 Months
--- NOTE | 2025-07-25 11:00 | CT_ITS ---
FINAL REPORT CLINICAL HISTORY: Abnormal pet scan COMPARISON: 05/12/2025 FINDINGS: CT CHEST without contrast COMPARISON: 05/12/2025. TECHNIQUE: Axial CT without contrast This study was performed with techniques to keep radiation doses as low as reasonably achievable, (ALARA). Individualized dose reduction techniques using automated exposure control or adjustment of mA and/or kV according to the patient's size were employed. FINDINGS: There is redemonstration of a spiculated mass in the right upper lobe, measuring 40 x 27 mm in size, was previously 34 x 21 mm in size when measured on similar slice selection. This mass extends to the pleural surface with increased adjacent pleural thickening. The pleural thickening was previously 4 mm, it is currently 6 mm. No new pulmonary parenchymal lesion is identified. There is a tiny right pleural effusion, similar to the prior exam. No pericardial effusion is identified. No appreciable adenopathy is present. The right adrenal gland measures 28 x 25 mm in size, stable. IMPRESSION: 1. Mild enlargement of the primary tumor in the right upper lobe with probable pleural involvement slightly increased. 2. Stable right adrenal mass, favor adenoma over metastasis. 3. Tiny right pleural effusion similar to the prior exam. This study was performed using automated techniques to achieve radiation exposure as low as reasonably achievable Reviewed, Interpreted and Dictated by Ignacio Christensen MD Transcribed by Esther Dawkins Authenticated and . [facility] [place]
== END 2025-07-25 23:59 | disposition home or self-care (01) ==
LOC: RAD 11:44 → PREOP 11:44 → RAD 12:11
PROVIDERS: PCP Family Medicine; Visit Provider Internal Medicine Pulmonary Disease
DX: D49.1 Neoplasm of unspecified behavior of respiratory system (principal); E27.8 Other specified disorders of adrenal gland; J90 Pleural effusion, not elsewhere classified; R91.8 Other nonspecific abnormal finding of lung field
CPT/HCPCS: 71250

== ENCOUNTER 2025-07-25 12:03 | Outpatient (CLI) | payer MEDICARE, SELFPAY ==
--- OUTSIDE RECORDS SUMMARY | 2025-06-13 07:49 | XMS_ITS | Encounter Summary ---
Author Organization [email or web address] ([place], [place], [place], [place]) Address [address] [place] [address] Care Team Providers Care Prop Sawyer Name Role Phone Unavailable Primary Care Provider Unavailabl e Reason for Referral * CAT Scan (Routine) - Pending Review Specialty Diagnoses / Procedures Referred By Contac t Referred To Contact Radiology Diagnoses Lung nodule Procedures PET/CT Skull Base-Mid Thigh (Whole Body) Tim Thomas MD [address] [place] [address] [address] Phone: tel: fax: Referral ID Status Reason Start Date Expiration Date V isits Requested Visits Authorized [id number] Pending Review 06/12/2025 06/12/2026 1 1 Reason for Visit * CAT Scan (Routine) - Pending Review Specialty Diagnoses / Procedures Referred By Contac t Referred To Contact Radiology Diagnoses Lung nodule Procedures PET/CT Skull Base-Mid Thigh (Whole Body) Tim Thomas MD [address] [place] [address] Phone: tel: fax: Referral ID Status Reason Start Date Expiration Date V isits Requested Visits Authorized [id number] Pending Review 06/12/2025 06/12/2026 1 1 Encounter Details Date Type Department Care Team (Latest Contact Info) Description 06/13/2025 7:49 AM EDT - 06/13/2025 11:59 PM EDT Hospital Encounter [facility] PET CT - [address] [employer] [facility] [address] [place] [address] Tim Thomas MD [address] [address] Lung nodule Discharge Disposition: Home or Self Care Social History Tobacco Use Types Packs/Day Years Used Date Smoking Tobacco: Never Assessed Comments Unknown Sex and Gender Information Value Date Recorded Sex Assigned at Not on file Legal Sex Female 3:40 PM CDT Gender Identity Not on file Sexual Orientation Not on file documented as of this encounter Plan of Treatment Not on file documented as of this encounter Procedures Procedure Name Priority Date/Time Associated Diagnosis Comments P.E.T./CT SKULL BASE TO MID-THIGH Routine 06/13/2025 10:23 AM EDT Lung nodule documented in this encounter Results * PET/CT Skull Base-Mid Thigh (Whole Body) (06/13/2025 10:23 AM EDT) Anatomical Region Laterality Modality Positron Emissio n Tomography (PET) 06/13/2025 11:3 6 AM EDT Impressions 06/13/2025 11:53 AM EDT Right perihilar hypermetabolic nodule is consistent with neoplasm. Hypermetabolic lesion in the left neck. This may represent lymph node or thyroid nodule. Thyroid ultrasound is recommended. Images reviewed, interpreted, and dictated by Dr. Alfa Mclean. Transcribed by Fely Antunez PA-C. Narrative 06/13/2025 11:[address] TUMOR IMAGING 06/13/2025 8:33 AM HISTORY: Solitary pulmonary nodule, history of right lung cancer and bladder cancer, restaging. COMPARISON: None. TECHNIQUE: Patient was injected with 16.8 mCi of 18-F FDG. Whole-body PET and non-contrast CT were performed of the neck, chest, abdomen and pelvis. Multiplanar reconstruction and fused images were reviewed. Blood glucose at time of injection was 157 mg/dL. This study was performed with techniques to keep radiation doses as low as reasonably achievable, (ALARA). Individualized dose reduction techniques using automated exposure control or adjustment of mA and/or kV according to the patient size were employed. FINDINGS: There is a 10 mm hypermetabolic nodule in the left neck with a maximum SUV of 22. This could represent a lymph node or thyroid nodule. There is an aberrant right subclavian artery. There is a hypermetabolic 23 mm nodule in the posterior right perihilar region with a maximum SUV of 43. There is surrounding interstitial change and nodularity. The gallbladder is surgically absent. There is a 15 m hypodense nodule in the right adrenal gland, probably an adenoma. The uterus is midline. The appendix is not visualized. Procedure Note Boubacar Mclean MD - 06/13/[address] TUMOR IMAGING 06/13/2025 8:33 AM HISTORY: Solitary pulmonary nodule, history of right lung cancer and bladder cancer, restaging. COMPARISON: None. TECHNIQUE: Patient was injected with 16.8 mCi of 18-F FDG. Whole-body PET and non-contrast CT were performed of the neck, chest, abdomen and pelvis. Multiplanar reconstruction and fused images were reviewed. Blood glucose at time of injection was 157 mg/dL. This study was performed with techniques to keep radiation doses as low as reasonably achievable, (ALARA). Individualized dose reduction techniques using automated exposure control or adjustment of mA and/or kV according to the patient size were employed. FINDINGS: There is a 10 mm hypermetabolic nodule in the left neck with a maximum SUV of 22. This could represent a lymph node or thyroid nodule. There is an aberrant right subclavian artery. There is a hypermetabolic 23 mm nodule in the posterior right perihilar region with a maximum SUV of 43. There is surrounding interstitial change and nodularity. The gallbladder is surgically absent. There is a 15 m hypodense nodule in the right adrenal gland, probably an adenoma. The uterus is midline. The appendix is not visualized. IMPRESSION: Right perihilar hypermetabolic nodule is consistent with neoplasm. Hypermetabolic lesion in the left neck. This may represent lymph node or thyroid nodule. Thyroid ultrasound is recommended. Images reviewed, interpreted, and dictated by Dr. Alfa Mclean. Transcribed by Fely Antunez PA-C. us Tim Thomas MD IMG CT ORDERABLES Final Resul t documented in this encounter Visit Diagnoses Diagnosis Lung nodule Other diseases of lung, not elsewhere classified documented in this encounter
[2025-07-25 08:34] VITALS: BMI 40.9
[2025-07-25 12:00] VITALS: BMI 40.9
--- OUTSIDE RECORDS SUMMARY | 2025-07-25 12:06 | XMS_ITS | Encounter Summary ---
Author Organization [facility] Address [address] [place] [address] Care Team Providers Care Bead Wrapper Name Role Phone Orlando Zhang MD Primary Care Provider [phone] Source Comments This information has been disclosed [...] release of HIV test results or diagnoses. [id number] Health Encounter Details Date Type Department Care Team (Late st Contact Info) Description 06/01/2025 Orders Only [facility] [address] [place], [place] [id number] Trevon Grant MD [address] [place] [address] Social History Tobacco Use Types Packs/Day Years Used Date Smoking Tobacco: Former Cigarettes 1 47 Smokeless Tobacco: Never Comments:currently 1ppd, on Chantix 2019 Alcohol Use Standard Drinks/Week Comments No 0 (1 standard drink = 0.6 oz pur e alcohol) Utilities Answer Date Recorded In the past 12 months has [employer], gas, oil, or water company threatened to [...] any time in the past 12 m [facility], were you homeless or living in [...] on filedocumented in this encounter Care Teams Bead Wrapper Relationship Specialty Start Date End Date Orlando Zhang MD [address] [place] [address] [address] PCP - General Family Medicine 03/01/19 documented as of this encounter
--- OUTSIDE RECORDS SUMMARY | 2025-07-25 12:06 | XMS_ITS | Referral Summary ---
Author Organization [employer] ([place], [place], [place], [place]) Address [address] [facility] [place] [address] Care Team Providers Care Armor Reconnaissance Specialist Name Role Phone Unavailable Primary Care Provider Unavailabl e Encounters Date Type Department Care Team Description 06/13/2025 7:49 AM EDT - 06/13/2025 11:59 PM EDT Hospital Encounter [facility] PET CT - [address] [place] [address] Tim Thomas MD Lung nodule Discharge Disposition: [...]
--- OUTSIDE RECORDS SUMMARY | 2025-07-25 12:06 | XMS_ITS | Clinical Summary ---
Author Organization [facility] [place] [address] Care Team Providers Care Sales And Merchandising Representative Name Role Phone Unavailable Primary Care Provider [...]
--- OUTSIDE RECORDS SUMMARY | 2025-07-25 12:06 | XMS_ITS | Clinical Summary ---
Author Organization [facility] Address [address] [facility] [address] [place] [id number] Phone Care Team Providers Care Forepart Laster Name Role Phone Camelia Patterson MD [phone] Conditions or Problems No information available. Medications No information available. Medications Administered No information available. Allergies, Adverse Reactions, Alerts No information available. Results No information available. Plan of Care No information available. Procedures No information available. Vital Signs No information available. Immunizations No information available. Advance Directives No information available.
--- OUTSIDE RECORDS SUMMARY | 2025-07-25 12:06 | XMS_ITS | Clinical Summary ---
Author Organization [facility] Address [address] [place] [address] Care Team Providers Care Geologic Technician Name Role Phone Orlando Zhang MD Primary Care Provider [phone] Source Comments This information has been disclosed [...] therelease of HIV test results or diagnoses. 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 Encounters Date Type Department Care Team Description 06/08/2025 Telephone [facility]rology at [facility] [address] [place] [address] Jarod Jones MA 06/08/2025 Telephone [facility] at [facility] [address] [facility] [address] [place] [address] Trevon Grant MD 06/08/2025 Telephone [facility] at [facility] [address] [facility] [address] [place] [address] Jarod Jones MA 06/01/2025 Orders Only [facility] [address] [place] [address] Trevon Grant MD 06/01/2025 Orders Only [facility] at [facility] [address] [facility] [address] [place] [address] Saray Hollis RN 05/30/2025 Telephone [facility] at [facility] [address] [facility] [address] [place] [address] Trevon Grant MD Results (Procedure 1st Attempt ) 05/04/2025 10:00 AM EDT Procedure visit [facility] at [facility] [address] [facility] [address] [place] [address] Trevon Grant MD 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 No 01/24/2025 Comments No Sex [...] Procedure Name Priority Date/Time Associated Diagnosis Comments NON-INFRASTRUCTURE SOFTWARE ENGINEER CYTOLOGY Routine 05/04/2025 12:0 0 AM EDT HEMOGLOBIN A1C Routine 01/25/2025 3:38 AM EDT ED HCV AB REFLEX TO HCV QUANT Routine 06/12/2024 9:00 PM EDT from Last 3 Months or Most Recently Relevant to Health Maintenance Results * Non-Swing Driver Cytology (05/04/2025 12:00 AM EDT) 05/04/2025 05/05/2025 Narrative [facility] - 05/04/2025 12:00 AM EDT CASE: [id number] PATIENT: TRINIDAD JUNG Clinical History: Clinical Diagnosis: Malignant Neoplasm Of Overlapping Sites Of Bladder ([facility]) [C67.8]-Primary Specimen Source: A. Urine Gross Description: Received 20ml Yellow Fluid CPT Code(s): 10468 X 1 Additional Information: DIAGNOSIS: Urine (thin prep) NO MALIGNANT CELLS IDENTIFIED MICROORGANISMS: Fungi consistent with Willa sp. are present Initial Evaluation performed by ANUSHA OLIVARES(ASCP) Skilled Nursing Facility Counselor Electronically signed 05/08/2025 06:43:29 AM The Diagnostician signing this report is located at [facility], [address] [place] [address], [id number], , CLIA ID: [id number] Final Diagnosis performed by Chris Perez D.O. Pathologist Electronically signed 05/08/2025 04:29:59 PM The Pathologist signing this report is located at [facility], [address] [place] [address], [id number], , CLIA ID: [id number] us Trevon Grant MD PATHOLOGY/CYTOLOGY ORDERABLES Final Result [facility] * (ABNORMAL) Hemoglobin A1c (01/25/2025 3:38 AM EDT) Hemoglobin A1C 6.8(H) 4.0 - 5.6 % 01/25/2025 4:47 AM EDT [facility] Comment: Hemoglobin A1c Interpretation [...] ORDERABLES Final Resul t Performing Organization Address City/[facility]/ZIP Co de Phone Number [facility] [address] [facility]. [address] * ED HCV Ab Reflex To HCV Quant (06/12/2024 9:00 PM EDT) HCV Ab Nonreactive Nonreactive 06/12/2024 10:06 PM EDT [facility] Comment:Health Department no tified in accordance with reportable infectious disease guidelines. HCVAB Number 0.12 0.00 - 0.79 S/CO 06/12/2024 10:06 PM EDT [facility] Serum 06/12/2024 9:00 PM EDT 06/12/2024 9:10 PM EDT us Oleg[facility] BLOOD ORDERABLES Final Res ult Performing Organization Address City/[facility] Co de Phone Number [facility] [address] [facility]. [address] from Last 3 Months or Most Recently Relevant to Health Maintenance Insurance [facility] SELECT MEDICARE Advance Directives For more information, please contact: [phone] * Full Code (Latest Code Status on File) Date Activated Date Inactivated Comments 01/24/2025 3:48 PM 01/25/2025 7:39 PM * Full Code Date Activated Date Inactivated Comments 07/15/2024 2:07 PM 07/17/2024 7:55 PM * Full Code Date Activated Date Inactivated Comments 04/11/2019 1:26 PM 04/16/2019 6:19 PM Care Teams Geologic Technician Relationship Specialty Start Date End Date Orlando Zhang MD [address] [place] [address] [address] PCP - General Family Medicine 03/01/19
--- OUTSIDE RECORDS SUMMARY | 2025-07-25 12:06 | XMS_ITS | Clinical Summary ---
Author Organization [employer] ([place], [place], [place], [place]) Address [address] [place] [address] Care Team Providers Care Doweling Machine Operator Name Role Phone Unavailable Primary Care Provider Unavailabl e Encounters Date Type Department Care Team Description 06/13/2025 7:49 AM EDT - 06/13/2025 11:59 PM EDT Hospital Encounter [facility] PET CT - [address] [place] [address] Tim Thomas MD Lung nodule [...]
--- OUTSIDE RECORDS SUMMARY | 2025-07-25 12:06 | XMS_ITS ---
Author Organization [facility] Address [address] [place] [address] Care Team Providers Care Sales Route Driver Helper Name Role Phone Orlando Zhang MD Primary Care Provider [phone] Active Problems Problem Noted Date Diagnosed Date Malignant neoplasm of overlapping sites of bladd er 05/04/2025 Bladder mass 06/30/2024 Calculus of ureter 06/30/2024 Lung nodule 04/04/2019 Overview (04/04/2019): Added automatically from request for surgery [id number] Malignant neoplasm of lower lobe of right lung 0 03/31/2019 Cancer Staging:Clinical: Unsigned Pathologic stage from 04/28/2019:Stage IA3(pT1c, pN0, cM0) - Signed by Ruma Yang MD on 04/28/[address] of the chest 03/09/2019 Overview (03/09/2019): Added automatically from request for surgery [id number] Current Treatment and Therapy Plans OP Urology [...]
--- OUTSIDE RECORDS SUMMARY | 2025-07-25 12:06 | XMS_ITS | Encounter Summary ---
Author Organization [facility] Address [facility] [place] [address] Care Team Providers Care Bike Mechanic Name Role Phone Orlando Zhang MD Primary Care Provider [phone] Source Comments This information has been disclosed [...] release of HIV test results or diagnoses. [id number] Health Encounter Details Date Type Department Care Team (Late st Contact Info) Description 06/01/2025 Orders Only [facility] at [place] [facility] [address] [address] Saray Hollis, RN Social History Tobacco Use Types Packs/Day Years Used Date Smoking Tobacco: Former Cigarettes 1 47 Smokeless Tobacco: Never Comments:currently 1ppd, on Chantix 2019 Alcohol Use Standard Drinks/Week Comments No 0 (1 standard drink = 0.6 oz pur e alcohol) Utilities Answer Date Recorded In the past 12 months has [employer], gas, oil, or water company threatened to [...] time in the past 12 m [facility], were you homeless or living in [...] on filedocumented in this encounter Care Teams Bike Mechanic Relationship Specialty Start Date End Date Orlando Zhang MD [address] [place] [address] PCP - General Family Medicine 03/01/19 documented as of this encounter
--- OUTSIDE RECORDS SUMMARY | 2025-07-25 12:06 | XMS_ITS | Encounter Summary ---
Author Organization [facility] Address [address] [place] [address] Care Team Providers Care Acetylene Torch Burner Name Role Phone Orlando Zhang MD Primary Care Provider [phone] Source Comments This information has been disclosed [...] release of HIV test results or diagnoses. [id number] Health Encounter Details Date Type Department Care Team (Late st Contact Info) Description 06/08/2025 Telephone [facility] Urology at [place] [facility] [address] [place] [address] Jarod Jones MA Social History Tobacco Use Types Packs/Day Years Used Date Smoking Tobacco: Former Cigarettes 1 47 Smokeless Tobacco: Never Comments:currently 1ppd, on Chanti 2019 Alcohol Use Standard Drinks/Week Comments No 0 (1 standard drink = 0.6 oz pur e alcohol) Utilities Answer Date Recorded In the past 12 months has [employer], gas, oil, or water company threatened to [...] in the past 12 m [facility], were you homeless or living [...] on filedocumented in this encounter Care Teams Acetylene Torch Burner Relationship Specialty Start Date End Date Orlando Zhang MD [address] [address] PCP - General Family Medicine 03/01/19 documented as of this encounter
--- OUTSIDE RECORDS SUMMARY | 2025-07-25 12:06 | XMS_ITS | Encounter Summary ---
Author Organization [facility] Address [address] [place] [address] Care Team Providers Care Telesales Team Leader Name Role Phone Orlando Zhang MD Primary Care Provider [phone] Source Comments This information has been disclosed [...] release of HIV test results or diagnoses. [id number] Health Encounter Details Date Type Department Care Team (Late st Contact Info) Description 06/08/2025 Telephone [facility]rology at [place] [facility] [address] [place] [address] Jarod Jones MA Social History Tobacco Use Types Packs/Day Years Used Date Smoking Tobacco: Former Cigarettes 1 47 Smokeless Tobacco: Never Comments:currently 1ppd, on Chanti 2019 Alcohol Use Standard Drinks/Week Comments No 0 (1 standard drink = 0.6 oz pur e alcohol) Utilities Answer Date Recorded In the past 12 months has [employer], gas, oil, or water company threatened to [...] time in the past 12 m [facility], were you homeless or living [...] on filedocumented in this encounter Care Teams Telesales Team Leader Relationship Specialty Start Date End Date Orlando Zhang MD [address] [place] [address] [address] PCP - General Family Medicine 03/01/19 documented as of this encounter
--- OUTSIDE RECORDS SUMMARY | 2025-07-25 12:06 | XMS_ITS | Continuity of Care Document ---
Author Organization [facility] Address [address] [facility] [place] [address] Care Team Providers Care Media Analytics Manager Name Role Phone ANY BO Primary Care Provider Unavailmary ewing Assessment No assessment recorded. Plan of Treatment Reminders Order Date Submit Date Provider Last Modified By Organization Details Last Modified Time Details Appointments None recorded . Lab HbA1c (hemoglo bin A1c), blood 07/07/20 25 LABIN Ann, [address], [place], [place], [address], 5 13:07:30 CBC w/ auto diff 07/07/20 25 ALBIN Ann, [address], Ehs[place] F, [place], [address], 5 13:07:27 lipid panel, serum 07/07/20 25 ALBIN Ann, [address], [place], [place], [address], 5 13:07:29 microalb umin/cre atinine, mass ratio, urine 07/07/20 25 ALBIN Ann, [address], [place] F, [place], [address], 5 13:07:29 CMP, serum or plasma 07/07/20 25 ALBIN Ann, [address], [place], [place], [address], 13:07:28 Referral None recorded . Procedures None recorded . Surgeries None recorded . Imaging None recorded . Medication Orders None recorded . Patient TargetsNo targets recorded. Patient InstructionsNo instructions recorded. Reason for Referral None Reported. Results Created Date Observation Date Name Description Value Unit Range Abnormal Flag Note LastModifiedBy Organization Detail LastModifiedTime 07/07/2007/08/2025 CBC WITH DIFFE RENTI AL/PL ATELE T WBC 8.0 x10e3 /uL 3.4-10 .8 normal Not Available [facility] ([facility]) [address] [place], [address], 07/08/2025 13:07:27 07/07/2007/08/2025 CBC WITH DIFFE RENTI AL/PL ATELE T RBC 3.75 x10e6 /uL 3.77-5 .28 below low normal Not Available [facility] ([facility]) [address] [place], [address], 07/08/2025 13:07:27 07/07/20 25 07/08/2025 CBC WITH DIFFE RENTI AL/PL ATELE T hemoglobin 12.0 g/dL 11.1-1 5.9 normal Not Available [facility] ([facility]) [address] [place], [address], 07/08/2025 13:07:27 07/07/2007/08/2025 CBC WITH DIFFE RENTI AL/PL ATELE T hematocrit 37.5 % 34.0-4 6.6 normal Not Available [facility] ([facility]) [address] [place], [address], 07/08/2025 13:07:27 07/07/20 25 07/08/2025 CBC WITH DIFFE RENTI AL/PL ATELE T MCV 100 fL 79-97 above high normal Not Available [facility] ([facility]) [address] [place], [address], 07/08/2025 13:07:27 07/07/20 25 07/08/2025 CBC WITH DIFFE RENTI AL/PL ATELE T MCH 32.0 pg 26.6-3 3.0 normal Not Available [facility] ([facility]) [address] [facility], [place], [address], 07/08/2025 13:07:27 07/07/20 25 07/08/2025 CBC WITH DIFFE RENTI AL/PL ATELE T MCHC 32.0 g/dL 31.5-3 5.7 normal Not Available [facility] ([facility]) [address] [facility], [place], [address], 07/08/2025 13:07:27 07/07/20 25 07/08/2025 CBC WITH DIFFE RENTI AL/PL ATELE T RDW 14.2 % 11.7-1 5.4 Not Available [facility] ([facility]) [address] [facility], [place], [address], 07/08/2025 13:07:27 07/07/20 25 07/08/2025 CBC WITH DIFFE RENTI AL/PL ATELE T platelets 203 x10e3 /uL 150-45 0 normal Not Available [facility] ([facility]) [address] [facility], [place], [address], 07/08/2025 13:07:27 07/07/20 25 07/08/2025 CBC WITH DIFFE RENTI AL/PL ATELE T neutrophils 74 % not estab. normal Not Available [facility] ([facility]) [address] [facility], [place], [address], 07/08/2025 13:07:27 07/07/20 25 07/08/2025 CBC WITH DIFFE RENTI AL/PL ATELE T lymphs 18 % not estab. normal Not Available [facility] ([facility]) [address] [place], [address], 07/08/2025 13:07:27 07/07/20 25 07/08/2025 CBC WITH DIFFE RENTI AL/PL ATELE T monocytes 6 % not estab. normal Not Available [facility] ([facility]) [address] [facility], [place], [address], 07/08/2025 13:07:27 07/07/20 25 07/08/2025 CBC WITH DIFFE RENTI AL/PL ATELE T eos 2 % not estab. normal Not Available [facility] ([facility]) [address] [facility], [place], [address], 07/08/2025 13:07:27 07/07/2007/08/2025 CBC WITH DIFFE RENTI AL/PL ATELE T basos 0 % not estab. normal Not Available [facility] ([facility]) [address] [facility], [place], [address], 07/08/2025 13:07:27 07/07/20 25 07/08/2025 CBC WITH DIFFE RENTI AL/PL ATELE T immature cells CENTER SALES AND SERVICE ASSOCIATE Not Available [facility] ([facility]) [address] [facility], [place], [address], 07/08/2025 13:07:27 07/07/20 25 07/08/2025 CBC WITH DIFFE RENTI AL/PL ATELE T neutrophils (absolute) 6.0 x10e3 /uL 1.4-7. 0 normal Not Available [facility] ([facility]) [address] [facility], [place], [address], 07/08/2025 13:07:27 07/07/20 25 07/08/2025 CBC WITH DIFFE RENTI AL/PL ATELE T lymphs (absolute) 1.4 x10e3 /uL 0.7-3. 1 normal Not Available [facility] ([facility]) [address] [place], [address], 07/08/2025 13:07:27 07/07/20 25 07/08/2025 CBC WITH DIFFE RENTI AL/PL ATELE T monocytes(ab solute) 0.5 x10e3 /uL 0.1-0. 9 normal Not Available [facility] ([facility]) [address] [facility], [place], [address], 07/08/2025 13:07:27 07/07/20 25 07/08/2025 CBC WITH DIFFE RENTI AL/PL ATELE T eos (absolute) 0.1 x10e3 /uL 0.0-0. 4 normal Not Available [facility] ([facility]) [address] [facility], [place], [address], 07/08/2025 13:07:27 07/07/20 25 07/08/2025 CBC WITH DIFFE RENTI AL/PL ATELE T baso (absolute) 0.0 x10e3 /uL 0.0-0. 2 normal Not Available [facility] ([facility]) [address] [facility], [place], [address], 07/08/2025 13:07:27 07/07/20 25 07/08/2025 CBC WITH DIFFE RENTI AL/PL ATELE T immature granulocytes 0 % not estab. Not Available [facility] ([facility]) [address] [facility], [place], [address], 07/08/2025 13:07:27 07/07/20 25 07/08/2025 CBC WITH DIFFE RENTI AL/PL ATELE T immature grans (abs) 0.0 x10e3 /uL 0.0-0. 1 Not Available [facility] ([facility]) [address] [facility], [place], [address], 07/08/2025 13:07:27 07/07/20 25 07/08/2025 CBC WITH DIFFE RENTI AL/PL ATELE T NRBC CENTER SALES [employer] SERVICE ASSOCIATE Not Available [facility] ([facility]) [address] [facility], [place], [address], 07/08/2025 13:07:27 07/07/20 25 07/08/2025 CBC WITH DIFFE RENTI AL/PL ATELE T hematology comments: CENTER SALES [employer] SERVICE ASSOCIATE Not Available [facility] ([facility]) [address] [facility], [place], [address], 07/08/2025 13:07:27 07/07/20 25 07/08/2025 COMP. METAB OLIC PANEL (14) glucose 158 mg/dL 70-99 above high normal Not Available [facility] ([facility]) [address] [facility], [place], [address], 07/08/2025 13:07:28 07/07/20 25 07/08/2025 COMP. METAB OLIC PANEL (14) BUN 16 mg/dL 8-27 normal Not Available [facility] ([facility]) [address] [facility], [place], [address], 07/08/2025 13:07:28 07/07/20 25 07/08/2025 COMP. METAB OLIC PANEL (14) creatinine 0.81 mg/dL 0.57-1 .00 normal Not Available [facility] ([facility]) [address] [facility], [place], [address], 07/08/2025 13:07:28 07/07/20 25 07/08/2025 COMP. METAB OLIC PANEL (14) eGFR 79 mL/mi n/1.7 3 >59 normal Not Available [facility] ([facility]) [address] [place], [address], 07/08/2025 13:07:28 07/07/20 25 07/08/2025 COMP. METAB OLIC PANEL (14) interpretati on: Commen t GFR estim ate at the follo wing level for >or=3 month s is class ified as follo ws: GFR WITH KIDNE Y DAMAG E WITHO UT KIDNE Y DAMAG E >or=9 0 Stage 1 Laura l 60-89 Stage 2 Decr eased GFR 30-59 Stage 3 Stage 3 15-29 Stage 4 Stage 4 <15 (or dialy sis) Stage 5 Stage 5 Estim ated GFR will over estim ate true GFR if serum creat inine is risin g as in acute renal failu re and will under estim ate true GFR if serum creat inine is decli zayra as in resol ving acute renal failu re. Addit ional infor goldy dotson may be found at www.k doqi. org. Not Available [facility] ([facility]) [address] [place], [address], 07/08/2025 13:07:28 07/07/2007/08/2025 COMP. METAB OLIC PANEL (14) BUN/creatini ne ratio 23 09- normal Not Available [facility] ([facility]) [address] [place], [address], 07/08/2025 13:07:28 07/07/20 25 07/08/2025 COMP. METAB OLIC PANEL (14) sodium 139 mmol/ L 134-14 4 normal Not Available [facility] ([facility]) [address] [place], [address], 07/08/2025 13:07:28 07/07/20 25 07/08/2025 COMP. METAB OLIC PANEL (14) potassium 3.9 mmol/ L 3.5-5. 2 normal Not Available [facility] ([facility]) [address] [place], [address], 07/08/2025 13:07:28 07/07/20 25 07/08/2025 COMP. METAB OLIC PANEL (14) chloride 96 mmol/ L 96-106 normal Not Available [facility] ([facility]) [address] [place], [address], 07/08/2025 13:07:28 07/07/20 25 07/08/2025 COMP. METAB OLIC PANEL (14) carbon dioxide, total 31 mmol/ L 20-29 above high normal Not Available [facility] ([facility]) [address] [place], [address], 07/08/2025 13:07:28 07/07/20 25 07/08/2025 COMP. METAB OLIC PANEL (14) calcium 8.9 mg/dL 8.7-10 .3 normal Not Available [facility] ([facility]) [address] [facility] [place], [address], 07/08/2025 13:07:28 07/07/20 25 07/08/2025 COMP. METAB OLIC PANEL (14) protein, total 6.5 g/dL 6.0-8. 5 normal Not Available [facility] ([facility]) [address] [facility] [place], [address], 07/08/2025 13:07:28 07/07/20 25 07/08/2025 COMP. METAB OLIC PANEL (14) albumin 4.4 g/dL 3.9-4. 9 normal Not Available [facility] ([facility]) [address] [facility] [place] [place], [address], 07/08/2025 13:07:28 07/07/20 25 07/08/2025 COMP. METAB OLIC PANEL (14) globulin, total 2.1 g/dL 1.5-4. 5 Not Available [facility] ([facility]) [address] [facility] [place] [place], [address], 07/08/2025 13:07:28 07/07/20 25 07/08/2025 COMP. METAB OLIC PANEL (14) bilirubin, total 0.5 mg/dL 0.0-1. 2 normal Not Available [facility] ([facility]) [address] [facility] [place] [place], [address], 07/08/2025 13:07:28 07/07/20 25 07/08/2025 COMP. METAB OLIC PANEL (14) alkaline phosphatase 142 IU/L 49-135 above high normal Not Available [facility] ([facility]) [address] [facility] [place] [place], [address], 07/08/2025 13:07:28 07/07/20 25 07/08/2025 COMP. METAB OLIC PANEL (14) AST (SGOT) 14 IU/L 0-40 normal Not Available [facility] ([facility]) [address] [facility] [place] [place], [address], 07/08/2025 13:07:28 07/07/20 25 07/08/2025 COMP. METAB OLIC PANEL (14) ALT (SGPT) 14 IU/L 0-32 normal Not Available [facility] ([facility]) [address] [place], [address], 07/08/2025 13:07:28 07/07/20 25 07/08/2025 LIPID PANEL cholesterol, total 185 mg/dL 100-19 9 normal Not Available [facility] ([facility]) [address] [place], [address], 07/08/2025 13:07:29 07/07/20 25 07/08/2025 LIPID PANEL triglyceride s 155 mg/dL 0-149 above high normal Not Available [facility] ([facility]) [address] [place], [address], 07/08/2025 13:07:29 07/07/20 25 07/08/2025 LIPID PANEL HDL cholesterol 42 mg/dL >39 normal Not Available [facility] ([facility]) [address] [place], [address], 07/08/2025 13:07:29 07/07/20 25 07/08/2025 LIPID PANEL VLDL cholesterol zach 28 mg/dL 5-40 Not Available [facility] ([facility]) [address] [place], [address], 07/08/2025 13:07:29 07/07/20 25 07/08/2025 LIPID PANEL LDL chol calc ([facility]) 115 mg/dL 0-99 above high normal Not Available [facility] ([facility]) [address] [facility], [place], [address], 07/08/2025 13:07:29 07/07/2007/08/2025 LIPID PANEL LDL calc comment: CENTER SALES [employer] SERVICE ASSOCIATE Not Available [facility] ([facility]) [address] [facility], [place], [address], 07/08/2025 13:07:29 07/07/20 25 07/08/2025 ALBUM IN/CR EAT RATIO , RANDO M UR creatinine, urine 63.4 mg/dL not estab. normal Not Available [facility] ([facility]) [address] [facility], [place], [address], 07/08/2025 13:07:29 07/07/20 25 07/08/2025 ALBUM IN/CR EAT RATIO , RANDO M UR albumin, urine 6.0 ug/mL not estab. Not Available [facility] ([facility]) [address] [facility], [place], [address], 07/08/2025 13:07:29 07/07/2007/08/2025 ALBUM IN/CR EAT RATIO , RANDO M UR alb/creat ratio 9 mg/g_ creat 0-29 Laura l: 0 - 29 Moder ately incre ased: 30 - 300 Sever hola incre ased: >300 Not Available [facility] ([facility]) [address] [facility], [place], [address], 07/08/2025 13:07:29 07/07/2007/08/2025 HEMOG LOBIN A1C hemoglobin A1C 6.4 % 4.8-5. 6 above high normal Predi abete s: 5.7 - 6.4 Diabe quinton: >6.4 Glyce aaron contr ol for adult s with diabe quinton: <7.0 Not Available [facility] ([facility]) [address] [place], [address], 07/08/2025 13:07:30 Result Notes None recorded. 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 [address], [place], [address], [place] - [facility] 2 16:15:31 Generalized headache 189975209 Active Chava grayson null, [place] - [facility] 6 15:57:11 Gastroesopha geal reflux disease 326675178 Active Chava grayson null, [place] - [facility] 6 15:57:24 Chronic obstructive pulmonary disease 93670595 Active Chava gr[place] null, [place] - [facility] 6 15:57:37 Essential hypertension 05948109 Active Chava gr[place] null, [place] - [facility] 6 15:57:53 Type 2 diabetes mellitus 76352533 Active 2021 Any Bo APRN [address], [place], [address], [place] - [facility] 2 16:15:36 Hypercholest erolemia 59544699 Active 2021 Any Bo APRN [address], [place], [address], [place] - [facility] 2 16:16:05 History of primary malignant neoplasm of lung 643807003 Active 2021 removed right lower lung Magaly Stears 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 Please review these documents and add these problems to the patient's chart manually as needed. Problem Notes None recorded. Procedures Surgical History Date Name Laterality Status Provider Name and Address Organization Details Recorded Time 01/20/20 25 Advance Care Planning completed Flower [place] - [facility] 01/19/2025 13:51:35 01/20/20 25 Functional Status Assessed completed Flowerramiro Sol [place] - [facility] 01/19/2025 13:51:35 04/26/20 24 Date of Last Mammogram completed Magaly Valles [place] - [facility] 10/06/2024 10:40:53 04/11/20 19 Cancer Surgery completed Lfowerramiro Sol [place] - [facility] 01/19/2025 13:52:29 04/11/20 19 lobectomy of lung completed Shakira Grimes [place] - [facility] 04/18/2019 12:56:00 12/01/19 19 Joint Injection completed Kerline Odell [place] - [facility] 12/01/2018 14:12:48 10/13/19 19 Systolic B/P less than 130 mm Hg completed Marah Leblanc [place] - [facility] 10/13/2018 08:53:26 10/13/19 19 Diastolic B/P less than 80 mm Hg completed Marah Ruizs [place] - [facility] 10/13/2018 08:53:28 10/06/19 19 Systolic B/P less than 130 mm Hg completed [place]hemy Ruizs [place] - [facility] 10/07/2018 15:28:11 10/06/19 19 Diastolic B/P less than 80 mm Hg completed [place]hemy Ruizs [place] [facility] 10/07/2018 15:28:14 02/16/20 15 Date of Last Pap Smear completed Chava [place]be[place] - [facility] 09/23/2016 15:47:00 02/02/19 88 Tubal Ligation completed Flower Sweta [place] - [facility] 01/19/2025 13:52:29 10/05/18 70 Tonsillectomy completed Flower [place] [facility] 01/19/2025 13:52:29 procedure on urinary bladder completed Magaly Valles [place] - [facility] 10/06/2024 10:40:18 Breast Biopsy [place] [facility] 09/23/2016 15:53:29 Cholecystectomy, laparoscopic completed [place] [facility] 09/23/2016 15:53:41 Colposcopy completed [place] [facility] 09/23/2016 15:54:18 Endometrial Biopsy completed Chava ROBL[place] - [facility] 09/23/2016 15:54:41 Unlisted procedure stomach completed Chava ROBLERO - [facility] 09/23/2016 15:54:55 Tonsillectomy completed Chava ROBLERO - [facility] 09/23/2016 15:55:10 [facility]al [facility] 15:55:22 Imaging Results None [...] nued on: 11/03/19 12 9:07AM;U ser: [email or web address] ryh;Est. Completi on: 10/21/19 12;Print ed: 10/01/20 [...] 14 9:55AM;U ser: norma crawford;Est. Completi on: 10/21/19 14;Indic ation: Seborrhe ic Dermatit is - (12.1319 00) Not Available Not Available Not Available [...] 11 2:15PM;U ser: norma crawford;Est. Completi on: 09/15/20 08;Indic [...] completed Not Available Not Available Not Available prednison e 20 mg tablet TAKE TWO TABLETS BY MOUTH EVERY DAY FOR 28 DAYS, THEN TAKE ONE TABLET BY MOUTH EVERY DAY FOR 28 DAYS, THEN TAKE 1/2 TABLET BY MOUTH EVERY DAY FOR 28 DAYS THEN STOP 05/08 completed Not Available Not Available Not Available Accu-Chek Softclix Lancets USE DIRECTED active Not Available Not Available No t Available acetamino phen 300 mg-codein e 30 mg tablet TAKE ONE TABLET BY MOUTH THREE TIMES DAILY NEEDED FOR PAIN MAY CAUSE DROWSINE SS 04/24 completed Not Available Not Available Not Available sulfameth oxazole 800 mg-trimet hoprim 160 mg tablet TAKE ONE TABLET BY MOUTH ON THURSDAY, Y AND 07/07 completed Not Available Not Available Not Available [...] HFA 90 mcg/actua tion aerosol inhaler INHALE TWO PUFFS BY MOUTH FOUR TIMES DAILY NEEDED FOR SHORTNES S OF BREATH OR wheezing active Not Available Not Available No t Available oxybutyni n chloride 5 mg tablet TAKE ONE (1) TABLET BY MOUTH THREE (3) TIMES A DAY NEEDED. active Not Available Not Available No t Available [place] 5 mg-325 mg tablet Take 1 tablet [...] insulin lispro (U-100) 100 unit/mL subcutane ous pen Inject 7 units 3 times a day by subcutan eous route with meal(s) for 30 days. 05/08 completed temporar y until omnipod was set up Not Available Not Available Not Available azithromy radha 500 mg tablet take 1 tablet (500 mg) by oral route once daily for 10 days 09/21 completed azithrom ycin 500 mg oral tablet;P rescribe Status: Prescrib ed on: 08/31/20 13 3:15PM;D iscontin ued Status: Disconti nued on: 09/21/20 13 2:56PM;U ser: norma crawford;Est. Completi on: 09/10/20 13;Pharm acyVerif ied: 08/31/20 13 3:15PM Not Available Not Available Not Available Mucinex D 60 mg-600 mg tablet,ex tended release Take 1 tablet twice a day by oral route. 10/06 completed Not Available Not Available Not Available [place] 1 q12h prn pain 09/27 completed norco 5 /325mg;R ecorded Status: Recorded on: 08/28/20 15 1:09PM;U ser: norma crawford;Est. Completi on: 09/27/20 15;Indic ation: - (-5) [...] Disconti nued on: 05/30/20 16 6:30PM;U ser: norma crawford;Est. Completi on: 09/27/20 15;Indic ation: Smoking Cessatio n - (05.3051 04);Phar Sebastian fied: 08/28/20 15 1:27PM Not Available Not Available Not Available Symbicort 160 mcg-4.5 mcg/actua tion HFA aerosol inhaler INHALE TWO PUFFS BY MOUTH TWICE DAILY active Not Available Not Available No t Available FeroSul 325 mg (65 mg iron) tablet 05/31 completed Not Available Not Available Not Available Lantus Solostar U-100 Insulin 100 unit/mL (3 mL) subcutane ous pen INJECT 20 UNITS SUBCUTAN EOUSLY EVERY NIGHT AT BEDTIME 05/08 completed Not Available Not Available Not Available [...] on: 02/16/20 15 10:12AM; User: norma crawford;EstHugo Rinaldi on: 09/06/20 14;Indic ation: Pain - (18.5089 00) Not Available Not Available Not Available Eliquis 5 mg tablet TAKE 1 TABLET BY MOUTH TWICE DAILY FOR BLOOD THINNER; ATRIAL FIB. active Not Available Not Available No t Available BD Insulin Syringe Ultra-Fin e 1 mL 31 gauge x 5/16 USE TO INJECT INSULIN active Not Available Not Available No t [...] MG EVERY WEEK BY SUBCUTAN EOUS ROUTE. 05/03 completed not allowed to start at this time Not Available Not Available Not Available Easy Comfort Pen Fisher 31 gauge x 1/4 USE DAILY with insulin injectio ns active Not Available Not Available No t Available TRUEplus Pen Needle 32 gauge x 5/32 DIRECTED FOUR (4) TIMES DAILY TO INJECT INSULIN active Not Available Not Available No t [...] Available Not Available Not Available Flucelvax Quad 2652-6519 (PF) 60 mcg (15 mcg x 4)/0.5 mL IM syringe 04/11 completed Not Available Not Available Not Available Omnipod Dash Pods (Gen 4) subcutane ous cartridge CHANGE POD EVERY 2 TO 3 DAYS DIRECTED 07/07 completed Not Available Not Available Not Available FreeStyle Diana 2 Sensor kit DIRECTED CHANGING EVERY 14 DAYS active Not Available Not Available No t Available FreeStyle Diana 2 [place] USE DIRECTED active Not Available Not Available No t Available red beet 250 mg-sour turner extract 0.5 mg chewable tablet Take 1 tablet every day by oral route. 10/06 completed Not Available Not Available Not Available Omnipod 5 G6-G7 Intro Kit(Gen 5) subcutane ous cartridge and controlle r DIRECTED active Not Available Not Available No t Available Omnipod 5 Intro Kit(G6/Li [id number]) subcutane ous cartridge USE DIRECTED , CHANGING PODS EVERY 72 HOURS active Not Available Not Available No t Available Omnipod 5 (G6/Diana 2 Plus) subcutane ous cartridge CHANGE EVERY 72 HOURS DIRECTED active Not Available Not Available No t Available FreeStyle Diana 2 Plus Sensor device APPLY ONE (1) SENSOR AND CHANGE EVERY 15 DAYS DIRECTED active Not Available Not Available No t Available Vitals Date Recorded Body height Body mass index (BMI) Body weight Oxygen saturation Oxygen saturation in Arterial blood by Pulse oximetry Heart rate Body temperature Respiratory rate Pain severity - 0-10 verbal numeric rating [Score] - Reported Systolic And Diastolic Provider Name and Address Organization Details Last Updated DateTime 157.48 cm 41.8 kg/m2 118902. 86 g 94 % 94 % 65 /min 98 [degF] 18 /min 0 124/82 mm[Hg] Flower Sol [place] - [facility] 14:22:42 Social History Question Answer Notes LastModified by Organizat ion Details LastModified Time Tobacco Smoking Status Former Smoker Magaly laguna [place] - [facility] 04/11/2022 16:07:03 Do You Have An Advance Directive? No Information not available 04/11/2022 Are You Blind Or Do You Have Difficulty Seeing? No [email or web address] Information not available 02/11/2018 What Is Your Level Of Caffeine Consumption? Moderate Information not available 01/19/2025 How Much Tobacco Do You Chew? None [email or web address] Information not available 02/11/2018 Are You Deaf Or Do You Have Serious Difficulty Hearing? No Information not available 02/11/2018 What Type Of Diet Are You Following? DIABETIC Information not available 01/19/2025 Which Illicit Or Recreational Drugs Have You Used? None [email or web address] Information not available 02/11/2018 What Is The Highest Grade Or Level Of School You Have Completed Or The Highest Degree You Have Received? [id number] Information not available 04/11/2022 How Many Days Of Moderate To Strenuous Exercise, Like A Brisk Walk, Did You Do In The Last 7 Days? 1 [email or web address] Information not available 02/11/2018 On Those Days That You Engage In Moderate To Strenuous Exercise, How Many Minutes, On Average, Do You Exercise? 1 [email or web address] Information not available 02/11/2018 Have There Been Any Changes To Your Family Or Social Situation? No Information not available 04/11/2022 How Hard Is It For You To Pay For The Very Basics Like Food, Housing, Medical Care, And Heating? [id number] [email or web address] Information not available 02/11/2018 What Is The Fluoride Status Of Your Home? Unknown Information not available 04/11/2022 When Did You Quit Smoking? 6-10yearssin celastcigare tte Information not available 01/19/2025 Hard Of Hearing Or Deaf In One Or Both Ears? No Information not available 02/04/2018 Legally Blind In One Or Both Eyes? No [email or web address] Information not available 02/04/2018 Live Alone Or With Others? With Others [email or web address] Information not available 02/04/2018 Do You Have A Medical Power Of Spool Fixer? No Information not available 04/11/2022 What Was [...] available 01/19/2025 What Is Your Relationship Status? [email or web address] Information not available 12/01/2018 Do You Use Your Seat Belt Or Car Seat Routinely? Yes Information not available 01/19/2025 Seat Belts Used Routinely Yes [email or web address] Information not available 02/11/2018 Are You Sexually Active? No Information not available 01/19/2025 Smoke Alarm In Home Yes Information not available 02/04/2018 Do You Have [...] Has Tobacco Cessation Counseling Been Provided? Yes [email or web address] Information not available 02/11/2018 On What Date Was Tobacco Cessation Counseling Provided? 12/01/2018 [email or web address] Information not available 12/01/2018 How Many Years [...] not available 04/11/2022 Are you able to walk independently without assistance or assistive devices? YESWOREST [email or web address] Information not available 02/11/2018 Do you have difficulty doing errands alone? No [email or web address] Information not available 02/11/2018 Are you able to care for yourself independently? Yes [email or web address] Information not available 02/04/2018 Do you have difficulty dressing, bathing, grooming, or toileting? No [email or web address] Information not available 02/11/2018 Do you or have you ever used e-cigarettes or vape? Former user of electronic cigarettes Information not available 01/19/2025 What is your exercise level? None [email or web address] Information not available 02/11/2018 Mental Status Question Answer Note LastModified by Organizat ion Details LastModified Time Do you feel stressed (tense, restless, nervous, or anxious, or unable to sleep at night)? [id number] Information not available 01/19/2025 Do you have difficulty concentrating, remembering or making decisions? No [email or web address] Information no t available 02/11/2018 Family History Relationship Description Onset Age of this Age Resolved Age Notes LastModified by Organization Details LastModified Time Paternal Aunt Family history of breast cancer [email or web address] Not available 2024 13:52:05 Father Family history of cancer of colon [email or web address] Not available 2024 13:52:05 Father Harmful pattern of use of alcohol [email or web address] Not available 2024 13:52:05 Father Malignant neoplasm of colon [email or web address] Not available 2024 13:52:05 [...] [email or web address] Not available 2024 13:52:05 Mother Malignant neoplasm of breast cbuckler Not available 2024 13:52:05 [...] Problems Y Kidney or Bladder Problems Y COPD Y Lung Disease Y Anemia Y Constipation Y Abnormal PAP [...] Influenza, high-dose, trivalent, PF 4 completed Magaly Valles null, [place] - [facility] 10/06/2024 10:25:47 influenza, unspecified formulation 8 completed Flower Sol null, [place] - [facility] 09/11/2023 15:28:59 influenza, unspecified formulation 0 completed F[place] null, [place] - [facility] 09/11/2023 15:28:59 Tdap 5 completed F[place] null, [place] - [facility] 01/19/2025 16:50:14 Td (adult), 2 Lf tetanus toxoid, preservative free, adsorbed 3 completed Magaly Loyas null, [place] - [facility] 10/13/2022 11:30:52 Influenza, [...] Diagnosis SNOMED-CT Code Diagnosis ICD10 Code Diagnosis IMO Codes Diagnosis Note [id number] Any Bo APRN [address] [id number] 07/07/2025 13:39:39 07/07/2025 15:34:08 Type 2 diabetes mellitus 72107729 E11.9 continue omnipod and dexcomif any issues calllabs Health Concerns Section Related Observation LastModified by Organization Detai ls LastModified Time None Recorded Concern Status LastModified by Organization Details LastModified Time None Recorded Payers Encounter Date Sequence Insurance Name Policy Number Policy Mercado Covered Member ID Mercado Member ID Guarantor Name 07/07/2025 1 [facility] (MEDICARE REPLACEMENT/A DVANTAGE - HMO) Erin Jung [id number] Erin Jung Notes Date Note Type Note Provider Name and Address Organization Details Recorded Time 07/07/2025 text/html ROS as noted in the HPI 69 yr old female presents for a follow up on diabetes and lab work.pt states doing well on ominpod 5. pt states glucose is being more controlled and she feels better Any Bo APRN [address], [place], [address], [place] - [facility] 07/07/2025 16:24:06 OBGyn Episode No OBEpisode recorded.
--- OUTSIDE RECORDS SUMMARY | 2025-07-25 12:06 | XMS_ITS | Encounter Summary ---
Author Organization [facility] Address [address] [place] [address] Care Team Providers Care Gasket Notcher Name Role Phone Orlando Zhang MD Primary Care Provider [phone] Source Comments This information has been disclosed [...] release of HIV test results or diagnoses. [id number] Health Encounter Details Date Type Department Care Team (Late st Contact Info) Description 06/08/2025 Telephone [facility] [place] [facility] [address] [address] Trevon Grant MD [address] [place] [address] Social History Tobacco Use Types Packs/Day Years Used Date Smoking Tobacco: Former Cigarettes 1 47 Smokeless Tobacco: Never Comments:currently 1ppd, on Chanti 2019 Alcohol Use Standard Drinks/Week Comments No 0 (1 standard drink = 0.6 oz pur e alcohol) Utilities Answer Date Recorded In the past 12 months has [employer] electric, gas, oil, or water company [...] any time in the past 12 m [facility], were you homeless or [...] on filedocumented in this encounter Care Teams Gasket Notcher Relationship Specialty Start Date End Date Orlando Zhang MD [address] [place] [address] PCP - General Family Medicine 03/01/19 documented as of this encounter
--- OUTSIDE RECORDS SUMMARY | 2025-07-25 12:06 | XMS_ITS | Encounter Summary ---
Author Organization [facility] Address [address] [place] [address] Care Team Providers Care Clipping Marker Name Role Phone Orlando Zhang MD Primary Care Provider [phone] Source Comments This information has been disclosed [...] release of HIV test results or diagnoses. [id number] Health Reason for Visit * Reason Comments Results Procedure 1st Attemp t Encounter Details Date Type Department Care Team (Late st Contact Info) Description 05/30/2025 Telephone [facility] [place] [facility] [address] [address] Trevon Gratn MD [address] [place] [address] Results (Procedure 1st Attempt ) Social History Tobacco Use Types Packs/Day Years Used Date Smoking Tobacco: Former Cigarettes 1 47 Smokeless Tobacco: Never Comments:currently 1ppd, on Chanti 2019 Alcohol Use Standard Drinks/Week Comments No 0 (1 standard drink = 0.6 oz pur e alcohol) Utilities Answer Date Recorded In the past 12 months has [employer] electric, gas, oil, or water company threatened [...] on filedocumented in this encounter Care Teams Clipping Marker Relationship Specialty Start Date End Date Orlando Zhang MD [address] [place] [address] PCP - General Family Medicine 03/01/19 documented as of this encounter
--- OUTSIDE RECORDS SUMMARY | 2025-07-25 12:07 | XMS_ITS | Clinical Summary ---
Author Organization [facility] Address [address] [place] [address] Care Team Providers Care Rubbing Bed Operator Name Role Phone Orlando Zhang MD Primary Care Provider [phone] Allergies Active Allergy Reactions Criticality Noted Date [...] Of Support Discussed With: Patient Care Teams Rubbing Bed Operator Relationship Specialty Start Date End Date Orlando Zhang MD [address] [place] [address] PCP - General Family Medicine 10/21/19
--- OUTSIDE RECORDS SUMMARY | 2025-07-25 12:07 | XMS_ITS | Data Portability ---
Author Organization [facility] Address [address] [place] [address] Care Team Providers Care Group Home Counselor Name Role Phone ANY BO Primary Care [...] HbA1c (hemoglo bin A1c), blood 07/07/20 25 [facility], [address], [address]hs[address], [place], [address], 13:07:30 CBC w/ auto diff 07/07/20 25 [facility], [address], [place] [address], [place], [address], 13:07:27 lipid panel, serum 07/07/20 25 [facility], [address], [address], [place], [address], 5 13:07:29 microalb umin/cre atinine, mass ratio, urine 025 07/07/20 25 [facility], [address], [address], [place], [address], 5 13:07:29 CMP, serum or plasma 025 07/07/20 25 [facility], [address], [place] [address], [place], [address], 5 13:07:28 HbA1c (hemoglo bin A1c), blood 025 01/20/20 25 [facility], [address], [place] [address], [place], [address], 5 13:10:56 microalb umin/cre atinine, mass ratio, urine 025 01/20/20 25 [facility], [address], [place] [address], [place], [address], 5 13:10:56 lipid panel, serum 025 01/20/20 25 [facility], [address], [address], [place], [address], 5 13:10:56 CMP, serum or plasma 025 01/20/20 25 [facility], [address], [place] [address], [place], [address], 5 13:10:55 CBC w/ auto diff 025 01/20/20 25 [facility], [address], [address], [place], [address], 5 13:10:55 Referral None recorded . Procedures None recorded . Surgeries None recorded . Imaging None recorded . Medication Orders None recorded . Patient TargetsNo targets recorded. Patient Instructions Encounter Date Encounter Id Patient Instructions Last Modified By Organization Details Last Modified Time 01/19/2025 [id number] advance directives: care instructions efryman Not available 01/19/2025 14:48:41 learning about depression efryman Not available 01/19/2025 14:48:41 preventing falls : care instructions efryman Not available 01/19/2025 14:48:40 medicare preventive services guide efryman Not available 01/19/2025 14:48:41 Reason for Referral None Reported. Results Created Date Observation Date Name Description Value Unit Range Abnormal Flag Note LastModifiedBy Organization Detail LastModifiedTime 01/20/2001/20/2025 CBC WITH DIFFE RENTI AL/PL ATELE T WBC 7.8 x10e3 /uL 3.4-10 .8 normal Not Available [facility] ([facility]) [address] [place], [address], 01/20/2025 13:10:55 01/20/20 25 01/20/2025 CBC WITH DIFFE RENTI AL/PL ATELE T RBC 4.26 x10e6 /uL 3.77-5 .28 normal Not Available [facility] ([facility]) [address] [place], [address], 01/20/2025 13:10:55 01/20/20 25 01/20/2025 CBC WITH DIFFE RENTI AL/PL ATELE T hemoglobin 12.7 g/dL 11.1-1 5.9 normal Not Available [facility] ([facility]) [address] [place], [address], 01/20/2025 13:10:55 01/20/20 25 01/20/2025 CBC WITH DIFFE RENTI AL/PL ATELE T hematocrit 40.2 % 34.0-4 6.6 normal Not Available [facility] ([facility]) [address] [place], [address], 01/20/2025 13:10:55 01/20/20 25 01/20/2025 CBC WITH DIFFE RENTI AL/PL ATELE T MCV 94 fL 79-97 normal Not Available [facility] ([facility]) [address] [place], [address], 01/20/2025 13:10:55 01/20/20 25 01/20/2025 CBC WITH DIFFE RENTI AL/PL ATELE T MCH 29.8 pg 26.6-3 3.0 normal Not Available [facility] ([facility]) [address] [place], [address], 01/20/2025 13:10:55 01/20/20 25 01/20/2025 CBC WITH DIFFE RENTI AL/PL ATELE T MCHC 31.6 g/dL 31.5-3 5.7 normal Not Available [facility] ([facility]) [address] [place], [address], 01/20/2025 13:10:55 01/20/20 25 01/20/2025 CBC WITH DIFFE RENTI AL/PL ATELE T RDW 16.0 % 11.7-1 5.4 above high normal Not Available [facility] ([facility]) [address] [place], [address], 01/20/2025 13:10:55 01/20/20 25 01/20/2025 CBC WITH DIFFE RENTI AL/PL ATELE T platelets 222 x10e3 /uL 150-45 0 normal Not Available [facility] ([facility]) [address] [place], [address], 01/20/2025 13:10:55 01/20/20 25 01/20/2025 CBC WITH DIFFE RENTI AL/PL ATELE T neutrophils 74 % not estab. normal Not Available [facility] ([facility]) [address] [place], [address], 01/20/2025 13:10:55 01/20/20 25 01/20/2025 CBC WITH DIFFE RENTI AL/PL ATELE T lymphs 20 % not estab. normal Not Available [facility] ([facility]) [address] [place], [address], 01/20/2025 13:10:55 01/20/20 25 01/20/2025 CBC WITH DIFFE RENTI AL/PL ATELE T monocytes 5 % not estab. normal Not Available [facility] ([facility]) [address] [place], [address], 01/20/2025 13:10:55 01/20/20 25 01/20/2025 CBC WITH DIFFE RENTI AL/PL ATELE T eos 1 % not estab. normal Not Available [facility] ([facility]) [address], [place], [address], 01/20/2025 13:10:55 01/20/20 25 01/20/2025 CBC WITH DIFFE RENTI AL/PL ATELE T basos 0 % not estab. normal Not Available [facility] ([facility]) [address] [place], [address], 01/20/2025 13:10:55 01/20/20 25 01/20/2025 CBC WITH DIFFE RENTI AL/PL ATELE T immature cells TEXTILE SCRAP SALVAGER Not Available [facility] ([facility]) [address] [place], [address], 01/20/2025 13:10:55 01/20/20 25 01/20/2025 CBC WITH DIFFE RENTI AL/PL ATELE T neutrophils (absolute) 5.7 x10e3 /uL 1.4-7. 0 normal Not Available [facility] ([facility]) [address] [place], [address], 01/20/2025 13:10:55 01/20/20 25 01/20/2025 CBC WITH DIFFE RENTI AL/PL ATELE T lymphs (absolute) 1.5 x10e3 /uL 0.7-3. 1 normal Not Available [facility] ([facility]) [address], [place], [address], 01/20/2025 13:10:55 01/20/20 25 01/20/2025 CBC WITH DIFFE RENTI AL/PL ATELE T monocytes(ab solute) 0.4 x10e3 /uL 0.1-0. 9 normal Not Available [facility] ([facility]) [address], [place], [address], 01/20/2025 13:10:55 01/20/20 25 01/20/2025 CBC WITH DIFFE RENTI AL/PL ATELE T eos (absolute) 0.1 x10e3 /uL 0.0-0. 4 normal Not Available [facility] ([facility]) [address], [place], [address], 01/20/2025 13:10:55 01/20/20 25 01/20/2025 CBC WITH DIFFE RENTI AL/PL ATELE T baso (absolute) 0.0 x10e3 /uL 0.0-0. 2 normal Not Available [facility] ([facility]) [address], [place], [address], 01/20/2025 13:10:55 01/20/20 25 01/20/2025 CBC WITH DIFFE RENTI AL/PL ATELE T immature granulocytes 0 % not estab. Not Available [facility] ([facility]) [address] [place], [address], 01/20/2025 13:10:55 01/20/20 25 01/20/2025 CBC WITH DIFFE RENTI AL/PL ATELE T immature grans (abs) 0.0 x10e3 /uL 0.0-0. 1 Not Available [facility] ([facility]) [address], [place], [address], 01/20/2025 13:10:55 01/20/20 25 01/20/2025 CBC WITH DIFFE RENTI AL/PL ATELE T NRBC TEXTILE SCRAP SALVAGER Not Available [facility] ([facility]) [address], [place], [address], 01/20/2025 13:10:55 01/20/20 25 01/20/2025 CBC WITH DIFFE ELLA AL/PL ATELE T hematology comments: TEXTILE SCRAP SALVAGER Not Available [facility] ([facility]) [address], [place], [address], 01/20/2025 13:10:55 01/20/20 25 01/20/2025 COMP. METAB OLIC PANEL (14) glucose 133 mg/dL 70-99 above high normal Not Available [facility] ([facility]) [address], [place], [address], 01/20/2025 13:10:55 01/20/20 25 01/20/2025 COMP. METAB OLIC PANEL (14) BUN 17 mg/dL 8-27 normal Not Available [facility] ([facility]) [address], [place], [address], 01/20/2025 13:10:55 01/20/20 25 01/20/2025 COMP. METAB OLIC PANEL (14) creatinine 0.76 mg/dL 0.57-1 .00 normal Not Available [facility] ([facility]) [address], [place], [address], 01/20/2025 13:10:55 01/20/20 25 01/20/2025 COMP. METAB OLIC PANEL (14) eGFR 85 mL/mi n/1.7 3 >59 normal Not Available [facility] ([facility]) [address] [place], [address], 01/20/2025 13:10:55 01/20/20 25 01/20/2025 COMP. METAB OLIC PANEL (14) BUN/creatini ne ratio 22 12-28 normal Not Available [facility] ([facility]) [address] [place], [address], 01/20/2025 13:10:55 01/20/20 25 01/20/2025 COMP. METAB OLIC PANEL (14) sodium 139 mmol/ L 134-14 4 normal Not Available [facility] ([facility]) [address] [place], [address], 01/20/2025 13:10:55 01/20/20 25 01/20/2025 COMP. METAB OLIC PANEL (14) potassium 4.1 mmol/ L 3.5-5. 2 normal Not Available [facility] ([facility]) [address] [place], [address], 01/20/2025 13:10:55 01/20/20 25 01/20/2025 COMP. METAB OLIC PANEL (14) chloride 96 mmol/ L 96-106 normal Not Available [facility] ([facility]) [address] [place], [address], 01/20/2025 13:10:55 01/20/20 25 01/20/2025 COMP. METAB OLIC PANEL (14) carbon dioxide, total 28 mmol/ L 20-29 normal Not Available [facility] ([facility]) [address] [place], [address], 01/20/2025 13:10:55 01/20/20 25 01/20/2025 COMP. METAB OLIC PANEL (14) calcium 8.9 mg/dL 8.7-10 .3 normal Not Available [facility] ([facility]) [address] [place], [address], 01/20/2025 13:10:55 01/20/20 25 01/20/2025 COMP. METAB OLIC PANEL (14) protein, total 6.8 g/dL 6.0-8. 5 normal Not Available [facility] ([facility]) [address] [place], [address], 01/20/2025 13:10:55 01/20/20 25 01/20/2025 COMP. METAB OLIC PANEL (14) albumin 4.4 g/dL 3.9-4. 9 normal Not Available [facility] ([facility]) [address] [place], [address], 01/20/2025 13:10:55 01/20/20 25 01/20/2025 COMP. METAB OLIC PANEL (14) globulin, total 2.4 g/dL 1.5-4. 5 Not Available [facility] ([facility]) [address] [place], [address], 01/20/2025 13:10:55 01/20/20 25 01/20/2025 COMP. METAB OLIC PANEL (14) bilirubin, total 0.3 mg/dL 0.0-1. 2 normal Not Available [facility] ([facility]) [address] [place], [address], 01/20/2025 13:10:55 01/20/20 25 01/20/2025 COMP. METAB OLIC PANEL (14) alkaline phosphatase 132 IU/L 44-121 above high normal Not Available [facility] ([facility]) [address] [place], [address], 01/20/2025 13:10:55 01/20/20 25 01/20/2025 COMP. METAB OLIC PANEL (14) AST (SGOT) 16 IU/L 0-40 normal Not Available [facility] ([facility]) [address] [place], [address], 01/20/2025 13:10:55 01/20/20 25 01/20/2025 COMP. METAB OLIC PANEL (14) ALT (SGPT) 18 IU/L 0-32 normal Not Available [facility] ([facility]) [address] [place], [address], 01/20/2025 13:10:55 01/20/20 25 01/20/2025 LIPID PANEL cholesterol, total 214 mg/dL 100-19 9 above high normal Not Available [facility] ([facility]) [address] [place], [address], 01/20/2025 13:10:56 01/20/20 25 01/20/2025 LIPID PANEL triglyceride s 135 mg/dL 0-149 normal Not Available [facility] ([facility]) [address] [place], [address], 01/20/2025 13:10:56 01/20/20 25 01/20/2025 LIPID PANEL HDL cholesterol 45 mg/dL >39 normal Not Available [facility] ([facility]) [address] [place], [address], 01/20/2025 13:10:56 01/20/20 25 01/20/2025 LIPID PANEL VLDL cholesterol zach 24 mg/dL 5-40 Not Available [facility] ([facility]) [address], [place], [address], 01/20/2025 13:10:56 01/20/20 25 01/20/2025 LIPID PANEL LDL chol calc ([facility]) 145 mg/dL 0-99 above high normal Not Available [facility] ([facility]) [address], [place], [address], 01/20/2025 13:10:56 01/20/20 25 01/20/2025 LIPID PANEL LDL calc comment: TEXTILE SCRAP SALVAGER Not Available [facility] ([facility]) [address] [place], [address], 01/20/2025 13:10:56 01/20/20 25 01/20/2025 ALBUM IN/CR EAT RATIO , RANDO M UR creatinine, urine 142.2 mg/dL not estab. normal Not Available [facility] ([facility]) [address] [place], [address], 01/20/2025 13:10:56 01/20/20 25 01/20/2025 ALBUM IN/CR EAT RATIO , RANDO M UR albumin, urine 24.5 ug/mL not estab. Not Available [facility] ([facility]) [address] [place], [address], 01/20/2025 13:10:56 01/20/20 25 01/20/2025 ALBUM IN/CR EAT RATIO , RANDO M UR alb/creat ratio 17 mg/g_ creat 0-29 Laura l: 0 - 29 Moder ately incre ased: 30 - 300 Sever hola incre ased: >300 Not Available [facility] ([facility]) [address] [place], [address], 01/20/2025 13:10:56 01/20/20 25 01/20/2025 HEMOG LOBIN A1C hemoglobin A1C 7.4 % 4.8-5. 6 above high normal Predi abete s: 5.7 - 6.4 Diabe quinton: >6.4 Glyce aaron contr ol for adult s with diabe quinton: <7.0 Not Available [facility] ([facility]) [address] [place], [address], 01/20/2025 13:10:56 01/20/20 25 01/20/2025 PLEAS E NOTE please note Commen t The date and/o r time of colle ction was not indic ated on the requi sitio n as requi red by state and leanna al law. The date of recei pt of the speci men was used as the colle ction date if not suppl ied. Not Available [facility] ([facility]) [address] [place], [address], 01/20/2025 13:10:57 07/07/20 25 07/08/2025 CBC WITH DIFFE RENTI AL/PL ATELE T WBC 8.0 x10e3 /uL 3.4-10 .8 normal Not Available [facility] ([facility]) [address] [place], [address], 07/08/2025 13:07:27 07/07/20 25 07/08/2025 CBC WITH DIFFE RENTI AL/PL ATELE T RBC 3.75 x10e6 /uL 3.77-5 .28 below low normal Not Available [facility] ([facility]) [address], [place], [address], 07/08/2025 13:07:27 07/07/20 25 07/08/2025 CBC WITH DIFFE RENTI AL/PL ATELE T hemoglobin 12.0 g/dL 11.1-1 5.9 normal Not Available [facility] ([facility]) [address], [place], [address], 07/08/2025 13:07:27 07/07/20 25 07/08/2025 CBC WITH DIFFE RENTI AL/PL ATELE T hematocrit 37.5 % 34.0-4 6.6 normal Not Available [facility] ([facility]) [address], [place], [address], 07/08/2025 13:07:27 07/07/2007/08/2025 CBC WITH DIFFE RENTI AL/PL ATELE T MCV 100 fL 79-97 above high normal Not Available [facility] ([facility]) [address], [place], [address], 07/08/2025 13:07:27 07/07/20 25 07/08/2025 CBC WITH DIFFE RENTI AL/PL ATELE T MCH 32.0 pg 26.6-3 3.0 normal Not Available [facility] ([facility]) [address] [place], [address], 07/08/2025 13:07:27 07/07/20 25 07/08/2025 CBC WITH DIFFE RENTI AL/PL ATELE T MCHC 32.0 g/dL 31.5-3 5.7 normal Not Available [facility] ([facility]) [address], [place], [address], 07/08/2025 13:07:27 07/07/2007/08/2025 CBC WITH DIFFE RENTI AL/PL ATELE T RDW 14.2 % 11.7-1 5.4 Not Available [facility] ([facility]) [address], [place], [address], 07/08/2025 13:07:27 07/07/20 25 07/08/2025 CBC WITH DIFFE RENTI AL/PL ATELE T platelets 203 x10e3 /uL 150-45 0 normal Not Available [facility] ([facility]) [address], [place], [address], 07/08/2025 13:07:27 07/07/20 25 07/08/2025 CBC WITH DIFFE RENTI AL/PL ATELE T neutrophils 74 % not estab. normal Not Available [facility] ([facility]) [address], [place], [address], 07/08/2025 13:07:27 07/07/2007/08/2025 CBC WITH DIFFE RENTI AL/PL ATELE T lymphs 18 % not estab. normal Not Available [facility] ([facility]) [address], [place], [address], 07/08/2025 13:07:27 07/07/20 25 07/08/2025 CBC WITH DIFFE RENTI AL/PL ATELE T monocytes 6 % not estab. normal Not Available [facility] ([facility]) [address], [place], [address], 07/08/2025 13:07:27 07/07/20 25 07/08/2025 CBC WITH DIFFE RENTI AL/PL ATELE T eos 2 % not estab. normal Not Available [facility] ([facility]) [address], [place], [address], 07/08/2025 13:07:27 07/07/20 25 07/08/2025 CBC WITH DIFFE RENTI AL/PL ATELE T basos 0 % not estab. normal Not Available [facility] ([facility]) [address], [place], [address], 07/08/2025 13:07:27 07/07/20 25 07/08/2025 CBC WITH DIFFE RENTI AL/PL ATELE T immature cells TEXTILE SCRAP SALVAGER Not Available [facility] ([facility]) [address], [place], [address], 07/08/2025 13:07:27 07/07/2007/08/2025 CBC WITH DIFFE RENTI AL/PL ATELE T neutrophils (absolute) 6.0 x10e3 /uL 1.4-7. 0 normal Not Available [facility] ([facility]) [address] [place], [address], 07/08/2025 13:07:27 07/07/20 25 07/08/2025 CBC WITH DIFFE RENTI AL/PL ATELE T lymphs (absolute) 1.4 x10e3 /uL 0.7-3. 1 normal Not Available [facility] ([facility]) [address] [place], [address], 07/08/2025 13:07:27 07/07/20 25 07/08/2025 CBC WITH DIFFE RENTI AL/PL ATELE T monocytes(ab solute) 0.5 x10e3 /uL 0.1-0. 9 normal Not Available [facility] ([facility]) [address] [place], [address], 07/08/2025 13:07:27 07/07/20 25 07/08/2025 CBC WITH DIFFE RENTI AL/PL ATELE T eos (absolute) 0.1 x10e3 /uL 0.0-0. 4 normal Not Available [facility] ([facility]) [address] [place], [address], 07/08/2025 13:07:27 07/07/20 25 07/08/2025 CBC WITH DIFFE RENTI AL/PL ATELE T baso (absolute) 0.0 x10e3 /uL 0.0-0. 2 normal Not Available [facility] ([facility]) [address], [place], [address], 07/08/2025 13:07:27 07/07/20 25 07/08/2025 CBC WITH DIFFE RENTI AL/PL ATELE T immature granulocytes 0 % not estab. Not Available [facility] ([facility]) [address], [place], [address], 07/08/2025 13:07:27 07/07/20 25 07/08/2025 CBC WITH DIFFE RENTI AL/PL ATELE T immature grans (abs) 0.0 x10e3 /uL 0.0-0. 1 Not Available [facility] ([facility]) [address], [place], [address], 07/08/2025 13:07:27 07/07/20 25 07/08/2025 CBC WITH DIFFE RENTI AL/PL ATELE T NRBC TEXTILE SCRAP SALVAGER Not Available [facility] ([facility]) [address], [place], [address], 07/08/2025 13:07:27 07/07/20 25 07/08/2025 CBC WITH DIFFE RENTI AL/PL ATELE T hematology comments: TEXTILE SCRAP SALVAGER Not Available [facility] ([facility]) [address], [place], [address], 07/08/2025 13:07:27 07/07/20 25 07/08/2025 COMP. METAB OLIC PANEL (14) glucose 158 mg/dL 70-99 above high normal Not Available [facility] ([facility]) [address], [place], [address], 07/08/2025 13:07:28 07/07/20 25 07/08/2025 COMP. METAB OLIC PANEL (14) BUN 16 mg/dL 8-27 normal Not Available [facility] ([facility]) [address], [place], [address], 07/08/2025 13:07:28 07/07/20 25 07/08/2025 COMP. METAB OLIC PANEL (14) creatinine 0.81 mg/dL 0.57-1 .00 normal Not Available [facility] ([facility]) [address], [place], [address], 07/08/2025 13:07:28 07/07/2007/08/2025 COMP. METAB OLIC PANEL (14) eGFR 79 mL/mi n/1.7 3 >59 normal Not Available [facility] ([facility]) [address], [place], [address], 07/08/2025 13:07:28 07/07/20 25 07/08/2025 COMP. METAB [...] at [email or web address] do[employer]. org. Not Available [facility] ([facility]) [address], [place], [address], 07/08/2025 13:07:28 07/07/20 25 07/08/2025 COMP. METAB OLIC PANEL (14) BUN/creatini ne ratio 20 12-28 normal Not Available [facility] ([facility]) [address] [place], [address], 07/08/2025 13:07:28 07/07/20 25 07/08/2025 COMP. METAB OLIC PANEL (14) sodium 139 mmol/ L 134-14 4 normal Not Available [facility] ([facility]) [address] [place], [address], 07/08/2025 13:07:28 07/07/20 25 07/08/2025 COMP. METAB OLIC PANEL (14) potassium 3.9 mmol/ L 3.5-5. 2 normal Not Available [facility] ([facility]) [address] [place], [address], 07/08/2025 13:07:28 07/07/20 25 07/08/2025 COMP. METAB OLIC PANEL (14) chloride 96 mmol/ L 96-106 normal Not Available [facility] ([facility]) [address] [place], [address], 07/08/2025 13:07:28 07/07/20 25 07/08/2025 COMP. METAB OLIC PANEL (14) carbon dioxide, total 31 mmol/ L 20-29 above high normal Not Available [facility] ([facility]) [address] [place], [address], 07/08/2025 13:07:28 07/07/20 25 07/08/2025 COMP. METAB OLIC PANEL (14) calcium 8.9 mg/dL 8.7-10 .3 normal Not Available [facility] ([facility]) [address] [place], [address], 07/08/2025 13:07:28 07/07/20 25 07/08/2025 COMP. METAB OLIC PANEL (14) protein, total 6.5 g/dL 6.0-8. 5 normal Not Available [facility] ([facility]) [address] [place], [address], 07/08/2025 13:07:28 07/07/20 25 07/08/2025 COMP. METAB OLIC PANEL (14) albumin 4.4 g/dL 3.9-4. 9 normal Not Available [facility] ([facility]) [address] [place], [address], 07/08/2025 13:07:28 07/07/20 25 07/08/2025 COMP. METAB OLIC PANEL (14) globulin, total 2.1 g/dL 1.5-4. 5 Not Available [facility] ([facility]) [address] [place], [address], 07/08/2025 13:07:28 07/07/20 25 07/08/2025 COMP. METAB OLIC PANEL (14) bilirubin, total 0.5 mg/dL 0.0-1. 2 normal Not Available [facility] ([facility]) [address] [place], [address], 07/08/2025 13:07:28 07/07/20 25 07/08/2025 COMP. METAB OLIC PANEL (14) alkaline phosphatase 142 IU/L 49-135 above high normal Not Available [facility] ([facility]) [address] [place], [address], 07/08/2025 13:07:28 07/07/20 25 07/08/2025 COMP. METAB OLIC PANEL (14) AST (SGOT) 14 IU/L 0-40 normal Not Available [facility] ([facility]) [address] [place], [address], 07/08/2025 13:07:28 07/07/20 25 07/08/2025 COMP. METAB OLIC PANEL (14) ALT (SGPT) 14 IU/L 0-32 normal Not Available [facility] ([facility]) [address] [place], [address], 07/08/2025 13:07:28 07/07/20 25 07/08/2025 LIPID PANEL cholesterol, total 185 mg/dL 100-19 9 normal Not Available [facility] ([facility]) [address] [place], [address], 07/08/2025 13:07:29 07/07/20 25 07/08/2025 LIPID PANEL triglyceride s 155 mg/dL 0-149 above high normal Not Available [facility] ([facility]) [address] [place], [address], 07/08/2025 13:07:29 07/07/20 25 07/08/2025 LIPID PANEL HDL cholesterol 42 mg/dL >39 normal Not Available [facility] ([facility]) [address] [place], [address], 07/08/2025 13:07:29 07/07/20 25 07/08/2025 LIPID PANEL VLDL cholesterol zach 28 mg/dL 5-40 Not Available [facility] ([facility]) [address] [place], [address], 07/08/2025 13:07:29 07/07/20 25 07/08/2025 LIPID PANEL LDL chol calc ([facility]) 115 mg/dL 0-99 above high normal Not Available [facility] ([facility]) [address] [place], [address], 07/08/2025 13:07:29 07/07/20 25 07/08/2025 LIPID PANEL LDL calc comment: [employer] Not Available [facility] ([facility]) [address], [place], [address], 07/08/2025 13:07:29 07/07/20 25 07/08/2025 ALBUM IN/CR EAT RATIO , RANDO M UR creatinine, urine 63.4 mg/dL not estab. normal Not Available [facility] ([facility]) [address], [place], [address], 07/08/2025 13:07:29 07/07/20 25 07/08/2025 ALBUM IN/CR EAT RATIO , ALFONSO Fernando UR albumin, urine 6.0 ug/mL not estab. Not Available [facility] ([facility]) [address], [place], [address], 07/08/2025 13:07:29 07/07/20 25 07/08/2025 ALBUM IN/CR EAT RATIO , RANDO Abdullahi UR alb/creat ratio 9 mg/g_ creat 0-29 Laura l: 0 - 29 Moder ately incre ased: 30 - 300 Sever hola incre ased: >300 Not Available [facility] ([facility]) [address], [place], [address], 07/08/2025 13:07:29 07/07/20 25 07/08/2025 HEMOG LOBIN A1C hemoglobin A1C 6.4 % 4.8-5. 6 above high normal Predi abete s: 5.7 - 6.4 Diabe quinton: >6.4 Glyce aaron contr ol for adult s with diabe quinton: <7.0 Not Available [facility] ([facility]) [address], [place], [address], 07/08/2025 13:07:30 Result Notes None recorded. Problems Name Problem SNOMED Code Status Onset Date Resolution Date Notes Provider Name and Address Organization Details Recorded Time History of cerebrovascu lar accident without residual deficits [id number] Active Any Bo, 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 [address], [place], [address], [place] - [facility] 16:15:31 Generalized headache 239386362 Active Chava grayson null, [place] - [facility] 6 15:57:11 Gastroesopha geal reflux disease 452889170 Active Chava gr[place], [place] - [facility] 6 15:57:24 Chronic obstructive pulmonary disease 07683143 Active Chava gr[place] - [facility] 6 15:57:37 Essential hypertension 61206428 Active Chava gr[place], [place] - [facility] 6 15:57:53 Type 2 diabetes mellitus 70318777 Active 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, 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 [address], [place], [address], [place] [facility] 2 16:15:36 Hypercholest erolemia 64262694 Active 2021 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, 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 [address], [place], [address], [place] [facility] 2 16:16:05 History of primary malignant neoplasm of lung 842155899 Active 2021 removed right lower lung Magalyteetee Loyakelly null, [place] - [facility] 4 13:50:05 Malignant neoplasm of urinary bladder 967399553 Active 2024 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, 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 [address], [place], [address], [place] [facility] 5 11:44:37 Notes:Some problems listed i n Documents: #[id number], #[id number] could not be added to this patient's [...] than 130 mm Hg completed Marah Leblanc MA - [facility] 10/13/2018 08:53:26 10/13/19 19 Diastolic B/P less than 80 mm Hg completed Marah Leblanc MA - [facility] 10/13/2018 08:53:28 10/06/19 19 Systolic B/P less than 130 mm Hg completed Marah Ruizs MA - [facility] 10/07/2018 15:28:11 10/06/19 19 Diastolic B/P less than 80 mm Hg completed Marah Leblanc MA - [facility] 10/07/2018 15:28:14 02/16/20 15 Date of Last Pap Smear completed Chava Beach [facility] 09/23/2016 15:47:00 02/02/19 88 Tubal Ligation completed Flower Sol MA - [facility] 01/19/2025 13:52:29 10/05/18 70 Tonsillectomy completed Flower Howeler MA - [facility] 01/19/2025 13:52:29 procedure on urinary bladder completed Magaly Valles MA - [facility] 10/06/2024 10:40:18 [facility]2016 15:53:29 Cholecystectomy, [facility] 09/23/2016 15:53:41 [facility] 09/23/2016 15:54:18 [facility] 09/23/2016 15:54:41 Unlisted procedure stomach completed Chava Yong MA - [facility] 09/23/2016 15:54:55 [facility] 09/23/2016 15:55:10 [facility] 09/23/2016 15:55:22 Imaging Results None recorded. Procedure [...] route daily for 90 days 03/31 completed ricku m chloride 10 mEq oral capsule, extended release; Prescrib e Status: Prescrib ed on: 04/24/20 14 3:55PM;U ser: irene;Genny st. Completi on: 03/31/20 15;Pharm acyVerif ied: [...] 14;Indic ation: Seborrhe ic Dermatit is - (12.6907 00) Not Available Not Available Not Available [...] nued on: 10/08/19 11 2:15PM;U ser: norma hanEst. Completi on: 09/15/20 08;Indic ation: - (-5);Serena [...] nued on: 02/16/20 15 10:12AM; User: norma hanEst. Completjim on: 01/05/20 15;Pharm acyVrand ied: 08/07/20 14 [...] TAKE ONE TABLET BY MOUTH ON THURSDAY, AND 07/07 completed Not Available Not Available [...] zole 30 mg oral capsule, delayed release( /RAMÓN);c omment: insuranc e will no longer cover;Pr [...] Not Available Not Available No t Available Herlong 5 mg-325 mg tablet Take 1 tablet [...] completed Not Available Not Available Not Available Herlong 1 q12h prn pain 09/27 completed norco [...] 14 9:55AM;U ser: markesbe ryh;Est. Completi on: 12/30/19 14;Indic ation: - (-5) Not Available Not Available Not Available Adipex-P 1 qam 09/21 completed adipex;R ecorded Status: Recorded on: 11/23/19 13 9:20AM;D iscontin ued Status: Disconti nued on: 09/21/20 13 3:44PM;U ser: markesbe ryh;Est. Completi on: 12/24/19 13;Indic ation: - (-5) [...] Available Kaon 1 tsp qhs 10/08 completed nancy;Rec orded Status: Recorded on: 09/04/20 10 4:33PM;D [...] nued on: 11/03/19 12 9:07AM;U ser: norma yvette;Est. Completi on: 10/08/19 12;Indic ation: - [...] Disconti nued on: 05/30/20 16 6:30PM;U ser: sawyervinicius crawford;Est. Completi on: 09/27/20 15;Indic ation: Smoking [...] Completi on: 09/06/20 14;Indic ation: Pain - (16.2251 00) Not Available Not Available Not Available Eliquis 5 mg tablet TAKE 1 TABLET BY MOUTH TWICE DAILY FOR BLOOD THINNER; ATRIAL FIB. active Not Available Not Available No t Available BD Insulin Syringe Ultra-Fin e 1 mL 31 gauge x /16 USE TO INJECT INSULIN active Not Available [...] Not Available Not Available Easy Comfort Pen [place] 31 gauge x 1/4 USE DAILY with [...] Available Not Available Not Available Flucelvax Quad (PF) 60 mcg (15 mcg x 4)/0.5 mL IM syringe 04/11 completed Not Available Not Available Not Available Omnipod Dash Pods (Gen 4) subcutane ous cartridge CHANGE POD EVERY 2 TO 3 DAYS DIRECTED 07/07 completed Not Available Not Available Not Available FreeStyle Diana 2 Sensor kit DIRECTED CHANGING EVERY 14 DAYS active Not Available Not Available No t Available FreeStyle Diana 2 [place] USE DIRECTED active Not Available Not Available No t Available red beet 250 mg-sour turner extract 0.5 mg chewable tablet Take 1 tablet every day by oral route. 10/06 completed Not Available Not Available Not Available Omnipod 5 G6-G7 Intro Kit(Gen 5) subcutane ous cartridge and controlle r DIRECTED active Not Available Not Available No t Available Omnipod 5 Intro Kit(G6/Li [id number]) subcutane ous cartridge USE DIRECTED , CHANGING [...] Arterial blood by Pulse oximetry Respiratory rate Pain severity - 0-10 verbal numeric rating [Score] - Reported Systolic And Diastolic Provider Name and Address Organization Details Last Updated DateTime 5 157.48 cm 41.2 kg/m2 612667. 28 g 98.2 [degF] 89 /min 93 % 93 % 18 /min 0 122/74 mm[Hg] Flower ROBLERO - [facility] 5 14:05:35 Date Recorded Body height Body mass index (BMI) Body weight Body temperature Heart rate Oxygen saturation Oxygen saturation in Arterial blood by Pulse oximetry Respiratory rate Pain severity - 0-10 verbal numeric rating [Score] - Reported Systolic And Diastolic Provider Name and Address Organization Details Last Updated DateTime 5 157.48 cm 42.1 kg/m2 025259. 25 g 98.1 [degF] 71 /min 93 % 93 % 18 /min 3 130/82 mm[Hg] Flower ROBLERO - [facility] 5 14:56:22 Date Recorded Body height Body mass index (BMI) Body weight Heart rate Oxygen saturation Oxygen saturation in Arterial blood by Pulse oximetry Respiratory rate Pain severity - 0-10 verbal numeric rating [Score] - Reported Systolic And Diastolic Provider Name and Address Organization Details Last Updated DateTime 5 157.48 cm 42.1 kg/m2 271543. 25 g 89 /min 92 % 92 % 22 /min 8 126/78 mm[Hg] Flower ROBLERO - [facility] 5 16:06:37 Date Recorded Body height Body mass index (BMI) Body weight Respiratory rate Pain severity - 0-10 verbal numeric rating [Score] - Reported Oxygen saturation Oxygen saturation in Arterial blood by Pulse oximetry Heart rate Body temperature Systolic And Diastolic Provider Name and Address Organization Details Last Updated DateTime 5 157.48 cm 40.8 kg/m2 734201. 1 g 18 /min 0 93 % 93 % 70 /min 98.1 [degF] 128/80 mm[Hg] Flower Sol [facility] 5 14:28:26 Date Recorded Body height Body mass index (BMI) Body weight Oxygen saturation Oxygen saturation in Arterial blood by Pulse oximetry Heart rate Body temperature Respiratory rate Pain severity - 0-10 verbal numeric rating [Score] - Reported Systolic And Diastolic Provider Name and Address Organization Details Last Updated DateTime 5 157.48 cm 41.8 kg/m2 693819. 86 g 94 % 94 % 65 /min 98 [degF] 18 /min 0 124/82 mm[Hg] Flower Sol [facility] 5 14:22:42 Social History Question Answer Notes LastModified by Organizat ion Details LastModified Time Tobacco Smoking Status Former Smoker Magaly laguna [facility] 04/11/2022 16:07:03 Do You Have An Advance Directive? No Information not available 04/11/2022 Are You Blind Or Do You Have Difficulty Seeing? No [email or web address] Information not available 02/11/2018 What Is Your Level Of Caffeine Consumption? Moderate Information not available 01/19/2025 How Much Tobacco Do You Chew? None [email or web address] Information not available 02/11/2018 Are You Deaf Or Do You Have Serious Difficulty Hearing? No [email or web address] Information not available 02/11/2018 What Type Of Diet Are You Following? DIABETIC Information not available 01/19/2025 Which Illicit Or Recreational Drugs Have You Used? None [email or web address] Information not available 02/11/2018 What Is The Highest Grade Or Level Of School You Have Completed Or The Highest Degree You Have Received? [id number] Information not available 04/11/2022 How Many Days Of Moderate To Strenuous Exercise, Like A Brisk Walk, Did You Do In The Last 7 Days? 1 [email or web address] Information not available 02/11/2018 On Those Days That You Engage In Moderate To Strenuous Exercise, How Many Minutes, On Average, Do You Exercise? 1 [email or web address] Information not available 02/11/2018 Have There Been Any Changes To Your Family Or Social Situation? No Information not available 04/11/2022 How Hard Is It For You To Pay For The Very Basics Like Food, Housing, Medical Care, And Heating? [id number] [email or web address] Information not available 02/11/2018 What Is The Fluoride Status Of Your Home? Unknown Information not available 04/11/2022 When Did You Quit Smoking? 6-10yearssin [email or web address] [email or web address] Information not available 01/19/2025 Hard Of Hearing Or Deaf In One Or Both Ears? No [email or web address] Information not available 02/04/2018 Legally Blind In One Or Both Eyes? No Information not available 02/04/2018 Live Alone Or With Others? With Others [email or web address] Information not available 02/04/2018 Do You Have A Medical Power Of Brass Pourer? No Information not available 04/11/2022 What Was [...] available 01/19/2025 Seat Belts Used Routinely Yes Information not available 02/11/2018 Are You Sexually Active? No Information not available 01/19/2025 Smoke Alarm In Home Yes [email or web address] Information not available 02/04/2018 Do You Have [...] Has Tobacco Cessation Counseling Been Provided? Yes Information not available 02/11/2018 On What Date Was Tobacco Cessation Counseling Provided? 12/01/2018 [email or web address] Information not available 12/01/2018 How Many Years Have You Smoked Tobacco? 44 Stopped In 2018 Information not available 05/31/2024 Do You Have Difficulty Walking Or Climbing Stairs? No [email or web address] Information not available 02/11/2018 Sex: Female Functional Status Question Answer Note LastModified by [employer] ion Details LastModified Time Do you use [...] independently without assistance or assistive devices? YESWOREST [email or web address] Information not available 02/11/2018 Do you have difficulty doing errands alone? No [email or web address] Information not available 02/11/2018 Are you able to care for yourself independently? Yes [email or web address] Information not available 02/04/2018 Do you have difficulty dressing, bathing, grooming, or toileting? No [email or web address] Information not available 02/11/2018 Do you or have you ever used e-cigarettes or vape? Former user of electronic cigarettes Information not available 01/19/2025 What is your exercise level? None [email or web address] Information not available 02/11/2018 Mental Status Question Answer Note LastModified by Organizat ion Details LastModified Time Do you feel stressed (tense, restless, nervous, or anxious, or unable to sleep at night)? [id number] Information not available 01/19/2025 Do you have difficulty concentrating, remembering or making decisions? No [email or web address] Information no t available 02/11/2018 Family History [...] available 2024 13:52:05 Medical History Condition Response Diabetes Y Muscle, Joint, or Bone Problems Y Obesity Y Vision or Eye Problems Y Degenerative Disc Disease Y Arthritis Y Ear or Hearing Problems Y Insomnia Y Acid Reflux (GERD) Y Cancer Y Kidney or Bladder Problems Y Stroke Y Blood clot Y COPD Y Lung Disease Y Anemia Y Constipation Y Abnormal PAP Y Headaches Y Irritable Bowel Syndrome Y [...] ICD10 Code Diagnosis IMO Codes Diagnosis Note [id number] Chava Beach MD [facility] [address] [place] [address] 07/28/2016 12:40:42 07/28/2016 15:32:09 Asthma 537454738 J45.909 Acute bronchitis 9087341 2 J20.9 Anxiety 75608118 F41.9 Chronic back pain 382687 002 G89.29 [id number] Chava Beach MD [address] [place] [address] 09/24/2016 10:22:46 09/24/2016 11:24:36 Gastroesophageal reflux disease 098001455 K21.9 Chronic ob structive pulmonary disease 09354382 J44.9 Acute bronchitis 6843068 2 J20.9 Abdominal pain 76655482 R10.9 Cough 23614651 R05 [id number] Chava Beach MD [address] [place] [address] 01/20/2018 14:22:17 01/20/2018 15:45:08 Chronic obstructive pulmonary disease 75322734 J44.9 Generalized headache 162 184997 R51 Gastroesop hageal reflux disease 313569453 K21.9 Essential hypertension 26424331 I10 Asthma 305818938 J45.90 9 Low back pain 487193124 M54.5 [id number] Dari Adam APRN [facility] [address] [place] [address] [place] [address] 02/04/2018 14:23:31 02/04/2018 16:39:19 Body mass index 30+ - obesity 071903404 Z68.38 Cough 47536530 R05 Hyperglycemia 97292914 R 73.9 Dizziness 098486003 R42 Fatigue 26847284 R53.83 Viral screening 84458291 4 Z11.59 Smoker 96224361 F17.660 [id number] Chava Beach MD [address] [place] [address] 02/09/2018 11:01:25 02/09/2018 12:47:16 Upper respiratory infection 48453144 J06.9 Cough 14095962 R05 Chronic ob structive pulmonary disease 37005807 J44.0 Dyspnea 061343372 R06.02 Decreased breath sounds 30374598 R09.89 [id number] Chava Beach MD [address] [place] [address] 02/16/2018 12:55:09 02/16/2018 14:04:12 Chronic obstructive pulmonary disease 90665539 J44.0 Bronchitis 73261102 J40 [id number] Chava Beach MD [address] [place] [address] 10/06/2018 14:43:16 10/06/2018 16:28:13 Chronic obstructive pulmonary disease 45095383 J44.0 Edema 402073622 R60.9 Upper resp iratory infection 62650999 J06.9 Harsh breath sounds 4765 3008 R09.89 [id number] Chava Beach MD [address] [place] [address] 10/13/2018 08:34:14 10/13/2018 10:17:51 Chronic obstructive pulmonary disease 24458815 J44.0 Generalized headache 162 114616 R51 Gastroesop hageal reflux disease 915486558 K21.9 Essential hypertension 24356869 I10 Anxiety 37804939 F41.9 [id number] Chava Beach MD [address] [place] [address] 12/01/2018 10:02:07 12/01/2018 11:51:11 Chronic obstructive pulmonary disease 90066440 J44.0 Injury of tendon of the rotator cuff of shoulder 986483039 S46.001A Upper resp iratory infection 33296258 J06.9 Dizziness 624583016 R42 Arthritis 7859770 M19.90 Trying to give up smoking 037743312 Z72.0 [id number] Any Bo APRN [address] [address] 04/11/2022 15:37:57 05/26/2022 14:09:55 Chronic obstructive pulmonary disease 83946702 J44.0 continue meds Essential hypertension 80332315 I10 continue plan of care Gastroesop hageal reflux disease 943573548 K21.9 continue plan of care Generalized headache 162 487298 R51.9 History of cerebrovascular accident without residual deficits 544027174 Z86.73 History of primary malignant neoplasm of lung 585788678 Z85.118 keep follow up appointmen ts with pulmonolog y Hypercholesterolemia 136 43783 E78.00 labs Diabetes mellitus 198200 09 E11.9 gave sample of diana will [...] any questions or concerns arise. Seasonal allergy 3794415 04 J30.2 [id number] Any Bo [address] [address] 10/13/2022 11:15:48 10/13/2022 12:38:10 Type 2 diabetes mellitus 84777735 E11.9 Essential hypertension 44894416 I10 continue plan of care Hypercholesterolemia 136 30693 E78.00 labs Chronic ob structive pulmonary disease 14289826 J44.0 continue meds Gastroesop hageal reflux disease 584450812 K21.9 continue plan of care Bilateral cramp of muscle of lower limbs 1371474202 8247520 R25.2 History of cerebrovascular accident without residual deficits 016935434 Z86.73 History of primary malignant neoplasm of lung 080977908 Z85.118 keep follow up appointmen ts with pulmonolog y Anxiety 72222692 F41.9 [id number] Any Bo [address] [address] 10/21/2022 15:56:18 10/21/2022 16:25:05 Anemia 448790223 D64.9 check labs, pt refused stool. will think about colonoscop ydiscussed the importance of having a colonoscop y with pt [id number] Any Bo [address] [address] 12/02/2022 11:14:57 12/02/2022 11:41:22 Acute right otitis media 841454176 H66.91 stop cefdinir start amoxicilli n Acute otitis externa 302 14860 H60.011 [id number] Any Bo [address] [address] 04/24/2023 15:53:16 04/24/2023 16:53:20 Type 2 diabetes mellitus 91006525 E11.9 forms filled out and given back to pt [id number] Any Bo [address] [address] 09/11/2023 15:16:01 09/11/2023 15:50:13 Type 2 diabetes mellitus 96796457 E11.9 forms filled out and given back to ptobtain labs from pcp [id number] Any Bo [address] [address] 05/31/2024 13:26:44 05/31/2024 14:30:51 Type 2 diabetes mellitus 16367363 E11.9 continue meds and dietwill add trulicity Essential hypertension 94094290 I10 continue plan of care Body mass index 30+ - obesity 875859188 Z68.41 41.5 Obesity 512026070 E66.9 Osteoporos is screening declined 9677247667 41298 Z53.20 Headache 98215157 R51.9 return if symptoms worsen or do not improve [id number] Any Bo [address] [address] 10/06/2024 10:23:27 10/06/2024 12:04:53 Type 2 diabetes mellitus 59924372 E11.9 continue meds and diethold trulicity until ok with urology Essential hypertension 33569994 I10 continue plan of care Hypercholesterolemia 136 38728 E78.00 labs [id number] Any Bo [address] [place] [address] 01/13/2025 14:57:10 01/13/2025 16:00:14 Type 2 diabetes mellitus 72301882 E11.9 continue meds and diet Biomedical equipment procedure 204396378 Z46.81 [id number] Any Bo APRN [address] [address] 01/19/2025 13:45:16 01/19/2025 15:14:08 Adult health examination 808454441 Z00.00 Depression screening 171 500637 Z13.31 A depression screening was completed via a standardiz ed screening tool. 5 minutes were spent discussing depression screening results and risk factors. Examinatio n of blood pressure 840706346 Z01.30 Diet education 08977599 Z71.3 Counseling 207725182 Z71 .82 Exercise counseling . Patient encouraged to exercise 30 minutes 5 days a week. At [facility] ed risk for falls 235850220 Z91.81 STEADI FAST screening score of __0___. Advance care planning 71 8044464 Z71.89 Screening for osteoporosis 779129356 Z13.820 567087 Medication declined 4061 19646 Z28.21 3611141041 Essential hypertension 93711790 I10 continue plan of care History of cerebrovascular accident without residual deficits 129806215 Z86.73 Hypercholesterolemia 136 06280 E78.00 labs Type 2 shelton betes mellitus 77365472 E11.9 continue meds and diet Malignant neoplasm of urinary bladder 494476588 C67.9 [id number] Any Bo APRN [address] [address] 03/24/2025 14:37:12 03/24/2025 15:41:48 Cyst of skin 186819692 L72.9 21078 packing removed.ed ucated how to do dressing changeclea ariana with salinepack ed with saline soaked gauze and sterle qtipcovere d with telfa and wrapped with kerlexpt tolerated well [id number] Any Bo 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 [address] [address] 03/28/2025 15:58:20 03/28/2025 17:20:11 Cyst of skin 484806432 L72.9 20698 packing removed.ed ucated how to do dressing changeclea ariana with salinepack ed with saline soaked gauze and sterle qtipcovere d with telfa and wrapped with kerlexpt tolerated well [id number] Carolinafermin Bo 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 [address] [address] 05/08/2025 14:01:39 05/08/2025 15:12:20 Type 2 diabetes mellitus 56037473 E11.9 continue meds and dietwill return once training has been set up [id number] Carolniafermin Bo 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 [address] [address] 07/07/2025 13:39:39 07/07/2025 15:34:08 Type 2 diabetes mellitus 16060999 E11.9 continue omnipod and dexcomif any [facility] Con[facility] Section Related Observation LastModified by Organization Detai ls LastModified Time None Recorded Concern Status LastModified by Organization Details LastModified Time None Recorded Advance Directives Directive N: Payers Insurance Date Sequence Insurance Name Policy Number Policy Mercado Covered Member ID Mercado Member ID Guarantor Name 01/13/2025 1 [employer] (MEDICARE REPLACEMENT/A DVANTAGE - PPO) Erin Kirstie Jung DCHYES DCHYES Erin Thacker Erich 04/11/2022 1 [place] [id number] Erin Thacker Erich [id number] Erin Kirstie Erich 05/31/2024 1 [employer] (MEDICARE REPLACEMENT/A DVANTAGE - PPO) Erin Jung [id number] Erin Jung 10/06/2024 1 [employer] - [place] [employer] (MEDICARE REPLACEMENT/A DVANTAGE - HMO) Erin Jung [id number] Erin Thacker Erich 05/08/2025 1 [employer] - [place] [employer]US (MEDICARE REPLACEMENT/A DVANTAGE - HMO) Erin Jung [id number] Erin Jung 07/06/2025 [place] Erin Jung [id number] Erin Jung 01/19/2025 1 [employer] (MEDICARE SUPPLEMENT) Erin Jung [id number] Erin Jung 04/02/2022 1 [facility] [id number] Erin Jung [id number] Erin Jung 07/06/2025 1 [facility] (MEDICARE REPLACEMENT/A DVANTAGE - HMO) Erin Jung [id number] Erin Jung Notes Date Note Type Note Provider Name and Address Organization Details Recorded Time 01/19/2025 text/html Medicare Annual Wellness VisitReported by Patient 69 yr old female presents for a Medicare annual wellness exam. pt states she is having resection on due to bladder tumors. needs labs for chronic dx such as dm,lipids,copd,cva, bladder ca,lung ca Any Bo APRN [address], [place], [address], [place] - [facility] 03/07/2025 10:27:19 03/24/2025 text/html 69 yr old female presents for a dressing change to recent cyst removal site to right upper arm on by dr blount. pt states dressing has not been changed Any Bo APRN [address], [place], [address], [place] - [facility] 03/24/2025 16:41:41 03/28/2025 text/html 69 yr old female presents for a right arm wound recheck/dressing change. pt states she tolerated dressing change well over the weekend Any Bo APRN [address], [place], [address], [place] [facility] 03/28/2025 16:49:56 05/08/2025 text/html Diabetes F/UReported by PatientHPIFor context, patient reportsnormal range of home blood sugars (in the low 100s),seeing eye doctor regularly, andchecking feet regularly. For associated symptoms, patient reportsno weight gain,no weight loss,no dizziness,no sweats,no headaches,no confusion,no increased thirst,no increased appetite,no increased urination,no blurred vision,no numbness of feet, andno calluses on feet. 69 yr old female presents for help with her omni pod 5 and cgm, set up. Any Bo, 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 [address], [place], [address], [place] [facility] 05/08/2025 15:37:15 07/07/2025 text/html ROS as noted in the HPI 69 yr old female presents for a follow up on diabetes and lab work.pt states doing well on ominpod 5. pt states glucose is being more controlled and she feels better Any Barlowvi, FABIÁN [address], [place], [address], [place] - [facility] 07/07/2025 16:24:06 OBGyn Episode No OBEpisode recorded.
--- NOTE | 2025-07-25 12:23 | ECG_ITS ---
APPROVED REPORT Exam: Resting ECG HR:65 bpm ECG Measurements Heart Rate 65 AXES OH 184 P -41 QRSd 80 QRS 81 QT 400 T 41 QTc 411 Conclusion SINUS RHYTHM NORMAL ECG UNCONFIRMED REPORT Electronically signed by : Aaron Cornejo MD 07/28/2025 08:51:39
[2025-07-25 12:26] LABS: Hematocrit 36.4 % (37.0-47.0); Hemoglobin 11.9 g/dL (12.2-16.2); Immature Granulocytes % 0.1 %; Mean Corpuscular HGB Conc 32.7 g/dL (31.8-35.4); Mean Corpuscular Hemoglobin 32.7 pg (27.0-31.2); Mean Corpuscular Volume 100.0 fl (81-99); Nucleated Red Blood Cells % 0 %; Platelet Count 200 K/mm3 (142-424); Red Blood Count 3.64 M/mm3 (4.20-5.40); Red Cell Distribution Width-SD 47.9 fL; White Blood Count 7.6 K/mm3 (4.8-10.8)
[2025-07-25 12:30] LABS: Chloride 98 mmol/L (98-107)
[2025-07-25 12:31] LABS: Potassium 4.2 mmoL/L (3.5-5.1); Sodium 137 mmol/L (136-145)
[2025-07-25 12:33] LABS: Blood Urea Nitrogen 18 mg/dl (7-17); Creatinine Clearance Estimated 86 mL/min (50-200); Creatinine,Serum 0.80 mg/dl (0.52-1.04); Estimated Glomerular Filt Rate 71 ml/min (>60); GFR (African American) 86 ML/MIN (>60)
[2025-07-25 12:34] LABS: Anion Gap 12.2 mEq/L (5-15); Calcium 8.1 mg/dl (8.4-10.2); Carbon Dioxide 31 mmol/L (22.0-30.0); Glucose 145 mg/dl (74-100)
== END 2025-07-25 23:59 | disposition home or self-care (01) ==
LOC: PREOP 12:04
PROVIDERS: Nurse Anesthetist, Certified Registered; PCP Family Medicine; Visit Provider Internal Medicine Pulmonary Disease
DX: Z01.810 Encounter for preprocedural cardiovascular examination (principal); Z01.812 Encounter for preprocedural laboratory examination
CPT/HCPCS: 80048; 85025; 93005

== ENCOUNTER 2025-07-28 09:22 | Day surgery (SDC) | payer MEDICARE, SELFPAY ==
[2025-07-25 14:21] VITALS: BMI 40.9
[2025-07-28] VITALS (11 sets, daily range): BP systolic 122–157; BP diastolic 54–83; PULSE 65–75; RESP 16–20; TEMP 36.4–36.7; O2SAT 90–100
[2025-07-28 10:28] LABS: POC Glucose,Bedside 152 gm/dL (70-110)
[2025-07-28] MEDS: LACTATED RINGERS 1000ML 1,000 ML 25 ML IV (10:42)
--- NOTE | 2025-07-28 11:15 | EXP.ANES.CKL ---
[facility] Disclaimer: The information contained in this section may have been updated after the patient was seen, as this information can be updated by other users. Medical History COPD mixed type Bladder cancer History of DVT of lower extremity History of pulmonary embolism History of lung or bronchial cancer Dyspnea on exertion History of smoking 30 or more pack years COPD (chronic obstructive pulmonary disease) Lung cancer CVA (cerebral vascular accident) HLD (hyperlipidemia) HTN (hypertension) Diabetes mellitus, type 2 CHF (congestive heart failure) Dyspnea Surgical History History of surgical removal of skin lesion H/O tubal ligation Status post partial removal of lung Hx of cholecystectomy Hx of tonsillectomy Family History Other Family history of atrial fibrillation Family history of cancer Social History (Updated 07/28/25 @ 10:36 by Helen Doyle RN) Smoking Status: Former smoker tobacco type: cigarettes packs per day: 1 pack-years: 30 years smoked: 30 smoking status stop date: April 2019 second hand exposure: Yes alcohol intake: former substance use type: former substance user, marijuana and crack/cocaine current occupational status: retired Travel in the last 8 weeks?: None household members: spouse housing: house current occupational exposures/hazards: No caffeine: Yes Have you lived/traveled outside [place] in past 30 days?: No Contact w/someone who lives/traveled outside [place] past 30 days?: No Exposure to someone with infectious disease in past 14 days?: No Do you have a fever (greater than 100.4 F or 38 C)?: No Have you tested positive for COVID-19?: No Exposed to someone with COVID-19 in past 14 days?: No Do you have a sore throat?: No Do you have a cough?: No Do you have any weakness?: No Are you experiencing any nausea/vomitting?: No Do you have any diarrhea?: No Are you experiencing any unusual bleeding?: No Do you have any muscle aches/pain?: No Do you have any abdominal pain?: No Are you experiencing loss of taste or smell?: No [facility] Anesthesia Checklist Patient Identification Patient Identification: Arm Band Structural Data Admitted From: Home Planned Operative Procedure/s: ION Bronchoscopy Consent for Planned Operative Procedure(s) Verified: Yes Verified Documents: Surgical Consent and History and Physical NPO Status Verified Time NPO: 00:00 Additional verifications Anesthesia Reactions: No Hx Blood Transfusions: No Blood Transfusion Reaction: No Airway Assessment Mallampati Score:: Class II C-Spine Mobility Assessed: Yes TMJ Mobility Assessed: Yes Dentition: Good Dentition Neurological Assessment Level of Consciousness: Awake, Alert and Appropriate Anesthesia Plan Anesthesia Risk discussed: Yes Anesthesia Plan: Verified ASA Class: III Anesthesia Type: General
--- NOTE | 2025-07-28 14:23 | XR_ITS ---
FINAL REPORT CLINICAL HISTORY: ION BRONCH IN THE OR FT: 6:34 157.00 MGY FINDINGS: FLUOROSCOPY LESS THAN 1 HOUR HISTORY: Fluoroscopy guidance. Fluoroscopic guidance was provided for bronchoscopy in the OR. A single spot film was obtained. A total of 6:34 minutes of fluoroscopy time were used. Total DAP: 157.00 mGy IMPRESSION: As above. Reviewed, Interpreted and Dictated by Ignacio Christensen MD Transcribed by Anette Madison Authenticated and [facility]
--- NOTE | 2025-07-28 15:04 | P.PCN_ITS ---
Procedure: Date: 07/28/25 Patient Date of :: 1955 Procedure Performed:: Navigational bronchoscopy, airway examination, bronchoalveolar lavage, trans bronchial fine-needle aspiration, trans bronchial brushing and trans bronchial biopsy of lung nodule, endobronchial biopsy and endobronchial ultrasound-guided lymph node surveillance and fine-needle aspiration of lymph node. Indications:: Lung nodule Performing Provider:: Tim Thomas MD Referring Provider:: Dr: Orlando Zhang MD Sedation:: General anesthesia Procedure:: Navigational bronchoscopy, airway examination, bronchoalveolar lavage, trans bronchial fine-needle aspiration, trans bronchial brushing and trans bronchial biopsy of lung nodule, endobronchial biopsy and endobronchial ultrasound-guided lymph node surveillance and fine-needle aspiration of lymph node. A clean diagnostic bronchoscopy was advanced to the ET tube and airway examination was performed. Evidence of right lower lobe resection with clips at the entry of right lower lobe bronchi noted. Airways otherwise appeared grossly normal, no evidence of mucoid secretions, mucous plugging active bleeding/old blood clots noted. Moderate amount of secretions were noted. Diagnostic bronchoscopy was retracted, and Robotic Ion bronchoscopy was introduced through the ET tube. Patient images were previously uploaded into the ION Plan point software. The target nodule sampling was planned, and the pathway was mapped. The nodule measured 32 mm in long axis. Following airway examination, airway registration was performed using shape sensing robot edvin tra bronchoscopy (SSRAB). We were 5 mm from the near edge of the nodule in the RUL. A Radial EBUS - [id number] was inserted to confirm the location which was tangential. Under fluoroscopy guidance the samples were taken. Sampling: A flexion 21 needle was used to perform FNA of the RUL Lung nodule. A total of 6 passes were made. This was followed by passes with a needle brush, 2 pass was made. Transbronchial forceps biopsies were then performed with a total of 8 biopsies were performed in the RUL Lung nodule. Bronchoalveolar lavage was performed with instillation of 20 cc normal saline with return of 5 cc back. Samples from transbronchial FNA, brush, forceps biopsy and bronchoalveolar lavage were sent in CytoLyt for cytopathologic examination. Ion robotic bronchoscopy was retracted and EBUS bronchoscope was introduced for lymph node surveillance. Five passes were taken using 21 gauge needing at lymph node stations 7 and 4R. Resultant lymph node FNA sample were labelled separa tely for each lymph node station and were sent in CytoLyt for cytopathologic examination. Resultant sample sent in culture media for fungal cultures. Findings:: Please see the procedure note Recommendations:: Postoperative bronchoscopy instructions Follow in pulmonary clinic in 5 to 7 days Complications:: No acute immediate complication Estimated blood obtained (mL): 5
--- NOTE | 2025-07-28 15:11 | XR_ITS ---
FINAL REPORT CLINICAL HISTORY: post bronch COMPARISON: 04/12/2025 FINDINGS: There is increased density in the right perihilar region and right lung base suspicious for worsening atelectasis. The left lung is clear. The known right lower lobe mass is partially obscured by atelectasis. There is no evidence of effusion or pneumothorax. Mediastinum is unremarkable. Heart size is normal. IMPRESSION: Increasing atelectasis without pneumothorax. Reviewed, Interpreted and Dictated by Ignacio Christensen MD Transcribed by Kerline Hobbs Authenticated and [facility]
--- NOTE | 2025-07-28 15:16 | EXP.ANES.I ---
[facility] Anesthesia Record Part I Anesthesia Record I Intake, IV Amount: 800 Hydration: Adequate Estimated blood loss (mL): 10 Urine output (mL): 0 Blood Pressure: 156/77 SaO2: 93 Pulse Rate: 75 Airway Patency: Patent Respiratory Rate: 20 Temperature: 97.6 F Patient is:: Awake, Nasal O2 and Stable Stable to PACU at:: 15:19
--- NOTE | 2025-07-28 15:20 | SUR.PHASEI ---
1509- pt 89% on 6L NC, expiratory wheezes noted t/o. RT called for duoneb x1 per AARON Dunn 1511- radiology at bedside for portable CXR 1514- Max Trent, RT at bedside giving duoneb 1522- dunettieb Max lundberg, RT placed pt on 5L NC and is still at bedside assessing pt
[2025-07-28] MEDS: IPRATROPIUM/ALBUTEROL 3 ML NEB IH (15:23)
--- NOTE | 2025-07-28 15:23 | SUR.PHASEI ---
radiology was told at the bedside, that Dr Thomas would like this to be a STAT read. Rad staff verbalized understanding
--- NOTE | 2025-07-28 15:39 | SUR.PHASEI ---
1532- Dr Thomas at bedside talking to pt. Dr Cassidy gave permission for pt to be discharged when stable, no need to wait for official read of CXR
[2025-07-28 15:50] LABS: POC Glucose,Bedside 145 gm/dL (70-110)
[2025-07-31 12:46] VITALS: BP 147/78; PULSE 69; RESP 17; TEMP 36.7; O2SAT 92
--- NOTE | 2025-07-31 12:46 | EXP.ANES.II ---
[facility] Anesthesia Record Part II Anesthesia Record Part II Discharge Time: 16:05 Destination: Surgical Day Care (OP Surgery) PACU nurse assessment reviewed?: Yes Patient Condition:: Good Anesthesia Complications:: None Swallowing reflex intact?: Yes Airway Patency: Patent Cyanosis?: No Blood Pressure: 147/78 SaO2: 92 Respiratory Rate: 17 Pulse Rate: 69 Temperature: 98.0 F Mental Status: Alert & Oriented Pain level:: 0 Nausea and/or vomitting:: None Intake, IV Amount: 0 Hydration: Adequate
== END 2025-07-28 16:15 | disposition home or self-care (01) ==
PROVIDERS: PCP Family Medicine; Visit Provider Internal Medicine Pulmonary Disease
PROC: (CPT 31623; principal; 2025-07-28 11:00)
DX: C34.11 Malignant neoplasm of upper lobe, right bronchus or lung (principal); Z85.118 Personal history of other malignant neoplasm of bronchus and lung; Z87.891 Personal history of nicotine dependence; Z86.718 Personal history of other venous thrombosis and embolism; Z86.711 Personal history of pulmonary embolism; J44.89 Other specified chronic obstructive pulmonary disease; E11.9 Type 2 diabetes mellitus without complications; I11.0 Hypertensive heart disease with heart failure; I50.9 Heart failure, unspecified; Z85.51 Personal history of malignant neoplasm of bladder; E78.5 Hyperlipidemia, unspecified; Z86.73 Personal history of transient ischemic attack (TIA), and cerebral infarction without residual deficits; Z90.2 Acquired absence of lung [part of]; Z79.01 Long term (current) use of anticoagulants; Z88.6 Allergy status to analgesic agent; Z79.82 Long term (current) use of aspirin; Z79.899 Other long term (current) drug therapy; Z79.4 Long term (current) use of insulin; Z79.51 Long term (current) use of inhaled steroids
CPT/HCPCS: 31623; 31624; 31627; 31628; 31629; 31652; 31654; 71045; 76000; 82962; 87101; 88112; 88173; 88305; 88341; 88342; 94640; J1100; J2003; J2250; J2405; J2704; J3010; J7120

== ENCOUNTER 2025-08-16 09:26 | Outpatient (CLI) | payer MEDICARE, SELFPAY ==
--- NOTE | 2025-08-16 10:00 | MR_ITS ---
FINAL REPORT TECHNIQUE: Multiplanar MR, without and with gadolinium enhancement CLINICAL HISTORY: Lung Cancer. HEADACHE, DIZZINESS AND BLURRED VISION FINDINGS: Diffusion sequences show no signal abnormality to indicate acute infarct. 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 There is moderate atrophy and chronic microvascular changes. There is right frontal encephalomalacia. No mass, hemorrhage or edema is seen. Ventricles are normal. Major vascular flow voids are intact. Following contrast administration, no mass or abnormal enhancement is seen. IMPRESSION: No evidence of brain metastatic disease. Chronic changes as above. Reviewed, Interpreted and Dictated by Ignacio Christensen MD Transcribed by Kerline Hobbs Authenticated and [facility]
[2025-08-16] MEDS: GADOTERIDOL INJ 20ML SYRINGE 20 ML IV (10:47)
[2025-08-16] MEDS: SODIUM CHLORIDE 0.9% 10ML SYR (RAD ONLY) 10 ML IV (10:47)
--- NOTE | 2025-08-16 11:00 | US_ITS ---
FINAL REPORT CLINICAL HISTORY: ATTN LT NECK investigate hypermetabolic nodule FINDINGS: Limited sonographic images of the upper neck were obtained. The submandibular and parotid glands are normal. No enlarged lymph nodes are seen in the upper neck. No mass is identified. IMPRESSION: Unremarkable ultrasound however if there is a PET abnormality, this would be more accurately localized with a contrast-enhanced CT or MRI. Reviewed, Interpreted and Dictated by Ignacio Christensen MD Transcribed by Kerline Hobbs Authenticated and . [facility]
--- NOTE | 2025-08-16 11:30 | US_ITS ---
FINAL REPORT TECHNIQUE: Limited sonographic images of the thyroid were obtained. CLINICAL HISTORY: Recommended on PET FINDINGS: The thyroid is normal in size. The right lobe demonstrates at least 5 nodules that appear cystic in nature. There is a dominant TR4 hypoechoic mass in the left lobe measuring up to 15 mm. There is a heterogeneous TR4 nodule of the inferior left lobe measuring 22 mm with a cystic, calcific, and solid component. A few other cystic lesions are seen within the left lobe, largest measures 15 mm. IMPRESSION: Most suspicious lesions in the left lobe measure 15 and 22 mm. Ultrasound directed FNA is recommended. Reviewed, Interpreted and Dictated by Ignacio Christensen MD Transcribed by Kerline Hobbs Authenticated and [facility]
== END 2025-08-16 23:59 | disposition home or self-care (01) ==
LOC: RAD 09:27
PROVIDERS: PCP Family Medicine; Visit Provider Internal Medicine Medical Oncology
DX: C34.90 Malignant neoplasm of unspecified part of unspecified bronchus or lung (principal); R94.8 Abnormal results of function studies of other organs and systems; R93.89 Abnormal findings on diagnostic imaging of other specified body structures; G31.9 Degenerative disease of nervous system, unspecified; R90.89 Other abnormal findings on diagnostic imaging of central nervous system; G93.89 Other specified disorders of brain; Z86.73 Personal history of transient ischemic attack (TIA), and cerebral infarction without residual deficits
CPT/HCPCS: 70553; 76536; A9576

== ENCOUNTER 2025-08-28 08:21 | Outpatient (CLI) | payer MEDICARE, SELFPAY ==
--- OUTSIDE RECORDS SUMMARY | 2025-08-28 08:26 | XMS_ITS | Clinical Summary ---
Author Organization [facility] [place] [id number] Care Team Providers Care Financial Manager Name Role Phone Unavailable Primary Care Provider [...] Density Screening 2021 COVID-19 Vaccine (1 - 2024-2 6 season) 2025 Influenza Vaccine (#1) 2025 Hepatitis B Vaccine Aged Out No longe r eligible based on patient's age to complete this topic Meningococcal B Vaccine Aged Out No l onger eligible based on patient's age to complete this topic
--- OUTSIDE RECORDS SUMMARY | 2025-08-28 08:27 | XMS_ITS | Data Portability ---
Author Organization [facility] Address [address] [place] [address] Care Team Providers Care Repossession Agent Name Role Phone ANY BO Primary Care [...] [facility], [address], [address], [place], [address], 13:07:30 CBC w/ auto diff 07/07/20 25 [facility], [address], [address] [address], [place], [address], 13:07:27 lipid panel, serum 07/07/20 25 [facility], [address], [address], [place], [address], 5 13:07:29 microalb umin/cre atinine, mass ratio, urine 025 07/07/20 25 [facility], [address], [address], [place], [address], 5 13:07:29 CMP, serum or plasma 025 07/07/20 25 [facility], [address], [place] [address], [place], [address], 5 13:07:28 HbA1c (hemoglo bin A1c), blood 025 01/20/20 25 [facility], [address], [address] [address], [place], [address], 5 13:10:56 microalb umin/cre atinine, mass ratio, urine 025 01/20/20 25 [facility], [address], [address] [address], [place], [address], 5 13:10:56 lipid panel, serum 025 01/20/20 25 [facility], [address], [address] [address], [place], [address], 5 13:10:56 CMP, serum or plasma 025 01/20/20 25 [facility], [address], [address], [place], [address], 5 13:10:55 CBC w/ auto diff 025 01/20/20 25 [facility], [address], [place] [address], [place], [address], 5 13:10:55 Referral None recorded . Procedures None recorded . Surgeries None recorded . Imaging None recorded . Medication Orders None recorded . Patient TargetsNo targets recorded. Patient Instructions Encounter Date Encounter Id Patient Instructions Last Modified By Organization Details Last Modified Time 01/19/2025 [id number] advance directives: care instructions efryman Not available [...] /uL 3.4-10 .8 normal Not Available [facility] ([facility]) [address] [place], [address], 01/20/2025 13:10:55 01/20/20 25 01/20/2025 CBC WITH DIFFE RENTI AL/PL ATELE T RBC 4.26 x10e6 /uL 3.77-5 .28 normal Not Available [facility] ([facility]) [address] [place], [address], 01/20/2025 13:10:55 01/20/20 25 01/20/2025 CBC WITH DIFFE RENTI AL/PL ATELE T hemoglobin 12.7 g/dL 11.1-1 5.9 normal Not Available [facility] ([facility]) [address] [place], [address], 01/20/2025 13:10:55 01/20/20 25 01/20/2025 CBC WITH DIFFE RENTI AL/PL ATELE T hematocrit 40.2 % 34.0-4 6.6 normal Not Available [facility] ([facility]) [address] [place], [address], 01/20/2025 13:10:55 01/20/20 25 01/20/2025 CBC WITH DIFFE RENTI AL/PL ATELE T MCV 94 fL 79-97 normal Not Available [facility] ([facility]) [address] [place], [address], 01/20/2025 13:10:55 01/20/20 25 01/20/2025 CBC WITH DIFFE RENTI AL/PL ATELE T MCH 29.8 pg 26.6-3 3.0 normal Not Available [facility] ([facility]) [address] [place], [address], 01/20/2025 13:10:55 01/20/20 25 01/20/2025 CBC WITH DIFFE RENTI AL/PL ATELE T MCHC 31.6 g/dL 31.5-3 5.7 normal Not Available [facility] ([facility]) [address] [place], [address], 01/20/2025 13:10:55 01/20/20 25 01/20/2025 CBC WITH DIFFE RENTI AL/PL ATELE T RDW 16.0 % 11.7-1 5.4 above high normal Not Available [facility] ([facility]) [address] [place], [address], 01/20/2025 13:10:55 01/20/20 25 01/20/2025 CBC WITH DIFFE RENTI AL/PL ATELE T platelets 222 x10e3 /uL 150-45 0 normal Not Available [facility] ([facility]) [address] [place], [address], 01/20/2025 13:10:55 01/20/20 25 01/20/2025 CBC WITH DIFFE RENTI AL/PL ATELE T neutrophils 74 % not estab. normal Not Available [facility] ([facility]) [address] [place], [address], 01/20/2025 13:10:55 01/20/20 25 01/20/2025 CBC WITH DIFFE RENTI AL/PL ATELE T lymphs 20 % not estab. normal Not Available [facility] ([facility]) [address] [place], [address], 01/20/2025 13:10:55 01/20/20 25 01/20/2025 CBC WITH DIFFE RENTI AL/PL ATELE T monocytes 5 % not estab. normal Not Available [facility] ([facility]) [address] [place], [address], 01/20/2025 13:10:55 01/20/20 25 01/20/2025 CBC WITH DIFFE RENTI AL/PL ATELE T eos 1 % not estab. normal Not Available [facility] ([facility]) [address] [facility], [place], [address], 01/20/2025 13:10:55 01/20/20 25 01/20/2025 CBC WITH DIFFE RENTI AL/PL ATELE T basos 0 % not estab. normal Not Available [facility] ([facility]) [address] [place], [address], 01/20/2025 13:10:55 01/20/20 25 01/20/2025 CBC WITH DIFFE RENTI AL/PL ATELE T immature cells [employer] Not Available [facility] ([facility]) [address] [place], [address], 01/20/2025 13:10:55 01/20/20 25 01/20/2025 CBC WITH DIFFE RENTI AL/PL ATELE T neutrophils (absolute) 5.7 x10e3 /uL 1.4-7. 0 normal Not Available [facility] ([facility]) [address] [place], [address], 01/20/2025 13:10:55 01/20/20 25 01/20/2025 CBC WITH DIFFE RENTI AL/PL ATELE T lymphs (absolute) 1.5 x10e3 /uL 0.7-3. 1 normal Not Available [facility] ([facility]) [address] [facility], [place], [address], 01/20/2025 13:10:55 01/20/20 25 01/20/2025 CBC WITH DIFFE RENTI AL/PL ATELE T monocytes(ab solute) 0.4 x10e3 /uL 0.1-0. 9 normal Not Available [facility] ([facility]) [address] [facility], [place], [address], 01/20/2025 13:10:55 01/20/20 25 01/20/2025 CBC WITH DIFFE RENTI AL/PL ATELE T eos (absolute) 0.1 x10e3 /uL 0.0-0. 4 normal Not Available [facility] ([facility]) [address] [facility], [place], [address], 01/20/2025 13:10:55 01/20/20 25 01/20/2025 CBC WITH DIFFE RENTI AL/PL ATELE T baso (absolute) 0.0 x10e3 /uL 0.0-0. 2 normal Not Available [facility] ([facility]) [address] [facility], [place], [address], 01/20/2025 13:10:55 01/20/20 25 01/20/2025 CBC WITH DIFFE RENTI AL/PL ATELE T immature granulocytes 0 % not estab. Not Available [facility] ([facility]) [address] [place], [address], 01/20/2025 13:10:55 01/20/20 25 01/20/2025 CBC WITH DIFFE RENTI AL/PL ATELE T immature grans (abs) 0.0 x10e3 /uL 0.0-0. 1 Not Available [facility] ([facility]) [address] [facility], [place], [address], 01/20/2025 13:10:55 01/20/20 25 01/20/2025 CBC WITH DIFFE RENTI AL/PL ATELE T NRBC [employer] Not Available [facility] ([facility]) [address] [facility], [place], [address], 01/20/2025 13:10:55 01/20/20 25 01/20/2025 CBC WITH DIFFE ELLA AL/PL ATELE T hematology comments: [employer] Not Available [facility] ([facility]) [address] [facility], [place], [address], 01/20/2025 13:10:55 01/20/20 25 01/20/2025 COMP. METAB OLIC PANEL (14) glucose 133 mg/dL 70-99 above high normal Not Available [facility] ([facility]) [address] [facility], [place], [address], 01/20/2025 13:10:55 01/20/20 25 01/20/2025 COMP. METAB OLIC PANEL (14) BUN 17 mg/dL 8-27 normal Not Available [facility] ([facility]) [address] [facility], [place], [address], 01/20/2025 13:10:55 01/20/20 25 01/20/2025 COMP. METAB OLIC PANEL (14) creatinine 0.76 mg/dL 0.57-1 .00 normal Not Available [facility] ([facility]) [address] [facility], [place], [address], 01/20/2025 13:10:55 01/20/20 25 01/20/2025 COMP. METAB OLIC PANEL (14) eGFR 85 mL/mi n/1.7 3 >59 normal Not Available [facility] ([facility]) [address] [facility] [place], [address], 01/20/2025 13:10:55 01/20/20 25 01/20/2025 COMP. METAB OLIC PANEL (14) BUN/creatini ne ratio 22 12-28 normal Not Available [facility] ([facility]) [address] [place], [address], 01/20/2025 13:10:55 01/20/20 25 01/20/2025 COMP. METAB OLIC PANEL (14) sodium 139 mmol/ L 134-14 4 normal Not Available [facility] ([facility]) [address] [facility] [place], [address], 01/20/2025 13:10:55 01/20/20 25 01/20/2025 COMP. METAB OLIC PANEL (14) potassium 4.1 mmol/ L 3.5-5. 2 normal Not Available [facility] ([facility]) [address] [facility] [place], [address], 01/20/2025 13:10:55 01/20/20 25 01/20/2025 COMP. METAB OLIC PANEL (14) chloride 96 mmol/ L 96-106 normal Not Available [facility] ([facility]) [address] [facility] [place], [address], 01/20/2025 13:10:55 01/20/20 25 01/20/2025 COMP. METAB OLIC PANEL (14) carbon dioxide, total 28 mmol/ L 20-29 normal Not Available [facility] ([facility]) [address] [facility] [place], [address], 01/20/2025 13:10:55 01/20/20 25 01/20/2025 COMP. METAB OLIC PANEL (14) calcium 8.9 mg/dL 8.7-10 .3 normal Not Available [facility] ([facility]) [address] [facility] [place], [address], 01/20/2025 13:10:55 01/20/20 25 01/20/2025 COMP. METAB OLIC PANEL (14) protein, total 6.8 g/dL 6.0-8. 5 normal Not Available [facility] ([facility]) [address] [facility] [place], [address], 01/20/2025 13:10:55 01/20/20 25 01/20/2025 COMP. METAB OLIC PANEL (14) albumin 4.4 g/dL 3.9-4. 9 normal Not Available [facility] ([facility]) [address] [facility] [place], [address], 01/20/2025 13:10:55 01/20/20 25 01/20/2025 COMP. METAB OLIC PANEL (14) globulin, total 2.4 g/dL 1.5-4. 5 Not Available [facility] ([facility]) [address] [place], [address], 01/20/2025 13:10:55 01/20/20 25 01/20/2025 COMP. METAB OLIC PANEL (14) bilirubin, total 0.3 mg/dL 0.0-1. 2 normal Not Available [facility] ([facility]) [address] [place], [address], 01/20/2025 13:10:55 01/20/20 25 01/20/2025 COMP. METAB OLIC PANEL (14) alkaline phosphatase 132 IU/L 44-121 above high normal Not Available [facility] ([facility]) [address] [place], [address], 01/20/2025 13:10:55 01/20/20 25 01/20/2025 COMP. METAB OLIC PANEL (14) AST (SGOT) 16 IU/L 0-40 normal Not Available [facility] ([facility]) [address] [place], [address], 01/20/2025 13:10:55 01/20/20 25 01/20/2025 COMP. METAB OLIC PANEL (14) ALT (SGPT) 18 IU/L 0-32 normal Not Available [facility] ([facility]) [address] [place], [address], 01/20/2025 13:10:55 01/20/20 25 01/20/2025 LIPID PANEL cholesterol, total 214 mg/dL 100-19 9 above high normal Not Available [facility] ([facility]) [address] [place], [address], 01/20/2025 13:10:56 01/20/20 25 01/20/2025 LIPID PANEL triglyceride s 135 mg/dL 0-149 normal Not Available [facility] ([facility]) [address] [place], [address], 01/20/2025 13:10:56 01/20/20 25 01/20/2025 LIPID PANEL HDL cholesterol 45 mg/dL >39 normal Not Available [facility] ([facility]) [address] [place], [address], 01/20/2025 13:10:56 01/20/20 25 01/20/2025 LIPID PANEL VLDL cholesterol zach 24 mg/dL 5-40 Not Available [facility] ([facility]) [address] [facility], [place], [address], 01/20/2025 13:10:56 01/20/20 25 01/20/2025 LIPID PANEL LDL chol calc ([facility]) 145 mg/dL 0-99 above high normal Not Available [facility] ([facility]) [address] [facility], [place], [address], 01/20/2025 13:10:56 01/20/20 25 01/20/2025 LIPID PANEL LDL calc comment: [employer] Not Available [facility] ([facility]) [address] [place], [address], 01/20/2025 13:10:56 01/20/20 25 01/20/2025 ALBUM IN/CR EAT RATIO , RANDO M UR creatinine, urine 142.2 mg/dL not estab. normal Not Available [facility] ([facility]) [address] [place], [address], 01/20/2025 13:10:56 01/20/20 25 01/20/2025 ALBUM IN/CR EAT RATIO , RANDO M UR albumin, urine 24.5 ug/mL not estab. Not Available [facility] ([facility]) [address] [place], [address], 01/20/2025 13:10:56 01/20/20 25 01/20/2025 ALBUM IN/CR EAT RATIO , RANDO M UR alb/creat ratio 17 mg/g_ creat 0-29 Laura l: 0 - 29 Moder ately incre ased: 30 - 300 Sever hola incre ased: >300 Not Available [facility] ([facility]) [address] [place], [address], 01/20/2025 13:10:56 01/20/20 25 01/20/2025 HEMOG LOBIN A1C hemoglobin A1C 7.4 % 4.8-5. 6 above high normal Predi abete s: 5.7 - 6.4 Diabe quinton: >6.4 Glyce aaron contr ol for adult s with diabe quinton: <7.0 Not Available [facility] ([facility]) [address] [place], [address], 01/20/2025 13:10:56 01/20/20 25 01/20/2025 PLEAS E NOTE please note Commen t The date and/o r time of colle ction was not indic ated on the requi sitio n as requi red by state and [place] law. The date of recei pt of the speci men was used as the colle ction date if not suppl ied. Not Available [facility] ([facility]) [address] [place], [address], 01/20/2025 13:10:57 07/07/20 25 07/08/2025 CBC WITH DIFFE RENTI AL/PL ATELE T WBC 8.0 x10e3 /uL 3.4-10 .8 normal Not Available [facility] ([facility]) [address] [place], [address], 07/08/2025 13:07:27 07/07/20 25 07/08/2025 CBC WITH DIFFE RENTI AL/PL ATELE T RBC 3.75 x10e6 /uL 3.77-5 .28 below low normal Not Available [facility] ([facility]) [address] [facility], [place], [address], 07/08/2025 13:07:27 07/07/20 25 07/08/2025 CBC WITH DIFFE RENTI AL/PL ATELE T hemoglobin 12.0 g/dL 11.1-1 5.9 normal Not Available [facility] ([facility]) [address] [facility], [place], [address], 07/08/2025 13:07:27 07/07/20 25 07/08/2025 CBC WITH DIFFE RENTI AL/PL ATELE T hematocrit 37.5 % 34.0-4 6.6 normal Not Available [facility] ([facility]) [address] [facility], [place], [address], 07/08/2025 13:07:27 07/07/2007/08/2025 CBC WITH DIFFE RENTI AL/PL ATELE T MCV 100 fL 79-97 above high normal Not Available [facility] ([facility]) [address] [facility], [place], [address], 07/08/2025 13:07:27 07/07/20 25 07/08/2025 CBC WITH DIFFE RENTI AL/PL ATELE T MCH 32.0 pg 26.6-3 3.0 normal Not Available [facility] ([facility]) [address] [place], [address], 07/08/2025 13:07:27 07/07/20 25 07/08/2025 CBC WITH DIFFE RENTI AL/PL ATELE T MCHC 32.0 g/dL 31.5-3 5.7 normal Not Available [facility] ([facility]) [address] [facility], [place], [address], 07/08/2025 13:07:27 07/07/2007/08/2025 CBC WITH DIFFE RENTI AL/PL ATELE T RDW 14.2 % 11.7-1 5.4 Not Available [facility] ([facility]) [address] [facility], [place], [address], 07/08/2025 13:07:27 07/07/20 25 07/08/2025 CBC WITH DIFFE RENTI AL/PL ATELE T platelets 203 x10e3 /uL 150-45 0 normal Not Available [facility] ([facility]) [address] [facility], [place], [address], 07/08/2025 13:07:27 07/07/20 25 07/08/2025 CBC WITH DIFFE RENTI AL/PL ATELE T neutrophils 74 % not estab. normal Not Available [facility] ([facility]) [address] [facility], [place], [address], 07/08/2025 13:07:27 07/07/2007/08/2025 CBC WITH DIFFE RENTI AL/PL ATELE T lymphs 18 % not estab. normal Not Available [facility] ([facility]) [address] [facility], [place], [address], 07/08/2025 13:07:27 07/07/20 25 07/08/2025 CBC WITH DIFFE RENTI AL/PL ATELE T monocytes 6 % not estab. normal Not Available [facility] ([facility]) [address] [facility], [place], [address], 07/08/2025 13:07:27 07/07/20 25 07/08/2025 CBC WITH DIFFE RENTI AL/PL ATELE T eos 2 % not estab. normal Not Available [facility] ([facility]) [address] [facility], [place], [address], 07/08/2025 13:07:27 07/07/20 25 07/08/2025 CBC WITH DIFFE RENTI AL/PL ATELE T basos 0 % not estab. normal Not Available [facility] ([facility]) [address] [facility], [place], [address], 07/08/2025 13:07:27 07/07/20 25 07/08/2025 CBC WITH DIFFE RENTI AL/PL ATELE T immature cells [employer] Not Available [facility] ([facility]) [address] [facility], [place], [address], 07/08/2025 13:07:27 07/07/2007/08/2025 CBC WITH DIFFE RENTI AL/PL ATELE T neutrophils (absolute) 6.0 x10e3 /uL 1.4-7. 0 normal Not Available [facility] ([facility]) [address] [place], [address], 07/08/2025 13:07:27 07/07/20 25 07/08/2025 CBC WITH DIFFE RENTI AL/PL ATELE T lymphs (absolute) 1.4 x10e3 /uL 0.7-3. 1 normal Not Available [facility] ([facility]) [address] [place], [address], 07/08/2025 13:07:27 07/07/20 25 07/08/2025 CBC WITH DIFFE RENTI AL/PL ATELE T monocytes(ab solute) 0.5 x10e3 /uL 0.1-0. 9 normal Not Available [facility] ([facility]) [address] [place], [address], 07/08/2025 13:07:27 07/07/20 25 07/08/2025 CBC WITH DIFFE RENTI AL/PL ATELE T eos (absolute) 0.1 x10e3 /uL 0.0-0. 4 normal Not Available [facility] ([facility]) [address] [place], [address], 07/08/2025 13:07:27 07/07/20 25 07/08/2025 CBC WITH DIFFE RENTI AL/PL ATELE T baso (absolute) 0.0 x10e3 /uL 0.0-0. 2 normal Not Available [facility] ([facility]) [address] [facility], [place], [address], 07/08/2025 13:07:27 07/07/20 25 07/08/2025 CBC WITH DIFFE RENTI AL/PL ATELE T immature granulocytes 0 % not estab. Not Available [facility] ([facility]) [address] [facility], [place], [address], 07/08/2025 13:07:27 07/07/20 25 07/08/2025 CBC WITH DIFFE RENTI AL/PL ATELE T immature grans (abs) 0.0 x10e3 /uL 0.0-0. 1 Not Available [facility] ([facility]) [address] [facility], [place], [address], 07/08/2025 13:07:27 07/07/20 25 07/08/2025 CBC WITH DIFFE RENTI AL/PL ATELE T NRBC [employer] Not Available [facility] ([facility]) [address] [facility], [place], [address], 07/08/2025 13:07:27 07/07/20 25 07/08/2025 CBC WITH DIFFE RENTI AL/PL ATELE T hematology comments: [employer] Not Available [facility] ([facility]) [address] [facility], [place], [address], 07/08/2025 13:07:27 07/07/20 25 07/08/2025 COMP. METAB OLIC PANEL (14) glucose 158 mg/dL 70-99 above high normal Not Available [facility] ([facility]) [address] [facility], [place], [address], 07/08/2025 13:07:28 07/07/20 25 07/08/2025 COMP. METAB OLIC PANEL (14) BUN 16 mg/dL 8-27 normal Not Available [facility] ([facility]) [address] [facility], [place], [address], 07/08/2025 13:07:28 07/07/20 25 07/08/2025 COMP. METAB OLIC PANEL (14) creatinine 0.81 mg/dL 0.57-1 .00 normal Not Available [facility] ([facility]) [address] [facility], [place], [address], 07/08/2025 13:07:28 07/07/2007/08/2025 COMP. METAB OLIC PANEL (14) eGFR 79 mL/mi n/1.7 3 >59 normal Not Available [facility] ([facility]) [address] [facility], [place], [address], 07/08/2025 13:07:28 07/07/20 25 07/08/2025 COMP. METAB [...] at [email or web address]. org. Not Available [facility] ([facility]) [address] [facility], [place], [address], 07/08/2025 13:07:28 07/07/20 25 07/08/2025 COMP. METAB OLIC PANEL (14) BUN/creatini ne ratio 20 12-28 normal Not Available [facility] ([facility]) [address] [facility] [place], [address], 07/08/2025 13:07:28 07/07/20 25 07/08/2025 COMP. METAB OLIC PANEL (14) sodium 139 mmol/ L 134-14 4 normal Not Available [facility] ([facility]) [address] [facility] [place], [address], 07/08/2025 13:07:28 07/07/20 25 07/08/2025 COMP. METAB OLIC PANEL (14) potassium 3.9 mmol/ L 3.5-5. 2 normal Not Available [facility] ([facility]) [address] [facility] [place], [address], 07/08/2025 13:07:28 07/07/20 25 07/08/2025 COMP. METAB OLIC PANEL (14) chloride 96 mmol/ L 96-106 normal Not Available [facility] ([facility]) [address] [facility] [place], [address], 07/08/2025 13:07:28 07/07/20 25 07/08/2025 COMP. METAB OLIC PANEL (14) carbon dioxide, total 31 mmol/ L 20-29 above high normal Not Available [facility] ([facility]) [address] [facility] [place], [address], 07/08/2025 13:07:28 07/07/20 25 07/08/2025 COMP. METAB OLIC PANEL (14) calcium 8.9 mg/dL 8.7-10 .3 normal Not Available [facility] ([facility]) [address] [facility] [place], [address], 07/08/2025 13:07:28 07/07/20 25 07/08/2025 COMP. METAB OLIC PANEL (14) protein, total 6.5 g/dL 6.0-8. 5 normal Not Available [facility] ([facility]) [address] [facility] [place], [address], 07/08/2025 13:07:28 07/07/20 25 07/08/2025 COMP. METAB OLIC PANEL (14) albumin 4.4 g/dL 3.9-4. 9 normal Not Available [facility] ([facility]) [address] [facility] [place], [address], 07/08/2025 13:07:28 07/07/20 25 07/08/2025 COMP. METAB OLIC PANEL (14) globulin, total 2.1 g/dL 1.5-4. 5 Not Available [facility] ([facility]) [address] [facility] [place], [address], 07/08/2025 13:07:28 07/07/20 25 07/08/2025 COMP. METAB OLIC PANEL (14) bilirubin, total 0.5 mg/dL 0.0-1. 2 normal Not Available [facility] ([facility]) [address] [facility] [place], [address], 07/08/2025 13:07:28 07/07/20 25 07/08/2025 COMP. METAB OLIC PANEL (14) alkaline phosphatase 142 IU/L 49-135 above high normal Not Available [facility] ([facility]) [address] [facility] [place], [address], 07/08/2025 13:07:28 07/07/20 25 07/08/2025 COMP. METAB OLIC PANEL (14) AST (SGOT) 14 IU/L 0-40 normal Not Available [facility] ([facility]) [address] [facility] [place], [address], 07/08/2025 13:07:28 07/07/20 25 07/08/2025 COMP. METAB OLIC PANEL (14) ALT (SGPT) 14 IU/L 0-32 normal Not Available [facility] ([facility]) [address] [facility] [place], [address], 07/08/2025 13:07:28 07/07/20 25 07/08/2025 LIPID PANEL cholesterol, total 185 mg/dL 100-19 9 normal Not Available [facility] ([facility]) [address] [facility] [place], [address], 07/08/2025 13:07:29 07/07/20 25 07/08/2025 LIPID PANEL triglyceride s 155 mg/dL 0-149 above high normal Not Available [facility] ([facility]) [address] [facility] [place], [address], 07/08/2025 13:07:29 07/07/20 25 07/08/2025 LIPID PANEL HDL cholesterol 42 mg/dL >39 normal Not Available [facility] ([facility]) [address] [place], [address], 07/08/2025 13:07:29 07/07/20 25 07/08/2025 LIPID PANEL VLDL cholesterol zach 28 mg/dL 5-40 Not Available [facility] ([facility]) [address] [place], [address], 07/08/2025 13:07:29 07/07/20 25 07/08/2025 LIPID PANEL LDL chol calc ([facility]) 115 mg/dL 0-99 above high normal Not Available [facility] ([facility]) [address] [place], [address], 07/08/2025 13:07:29 07/07/20 25 07/08/2025 LIPID PANEL LDL calc comment: [employer] Not Available [facility] ([facility]) [address] [facility], [place], [address], 07/08/2025 13:07:29 07/07/20 25 07/08/2025 ALBUM IN/CR EAT RATIO , RANDO M UR creatinine, urine 63.4 mg/dL not estab. normal Not Available [facility] ([facility]) [address] [facility], [place], [address], 07/08/2025 13:07:29 07/07/20 25 07/08/2025 ALBUM IN/CR EAT RATIO , ALFONSO Fernando UR albumin, urine 6.0 ug/mL not estab. Not Available [facility] ([facility]) [address], [place], [address], 07/08/2025 13:07:29 07/07/20 25 07/08/2025 ALBUM IN/CR EAT RATIO , RANDO Abdullahi UR alb/creat ratio 9 mg/g_ creat 0-29 Laura l: 0 - 29 Moder ately incre ased: 30 - 300 Sever hola incre ased: >300 Not Available [facility] ([facility]) [address], [place], [address], 07/08/2025 13:07:29 07/07/20 25 07/08/2025 HEMOG LOBIN A1C hemoglobin A1C 6.4 % 4.8-5. 6 above high normal Predi abete s: 5.7 - 6.4 Diabe quinton: >6.4 Glyce aaron contr ol for adult s with diabe quinton: <7.0 Not Available [facility] ([facility]) [address], [place], [address], 07/08/2025 13:07:30 Result Notes None recorded. 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 [address], [place], [address], [place] [facility] 2 16:15:31 Generalized headache 096289881 Active Chava grayson [place] - [facility] 6 15:57:11 Gastroesopha geal reflux disease 821884934 Active Chava gr[place] - [facility] 6 15:57:24 Chronic obstructive pulmonary disease 25730540 Active Chava gr[place] [facility] 6 15:57:37 Essential hypertension 26640595 Active Chava gr[place] [facility] 6 15:57:53 Type 2 diabetes mellitus 36133595 Active 2021 Any Bo, 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 [address], [place], [address], [place] [facility] 2 16:15:36 Hypercholest erolemia 71970541 Active 2021 Any Bo, 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 [address], [place], [address], [place] [facility] 2 16:16:05 History of primary malignant neoplasm of lung 864195292 Active 2021 removed right lower lung Magalyteetee Loyakelly null[place] - [facility] 4 13:50:05 Malignant neoplasm of urinary bladder 175265162 Active 2024 Any Bo, 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 [address], [place], [address], [place] [facility] 5 11:44:37 Notes:Some problems listed i n Documents: #[id number], #[id number] could not be added to this patient's [...] than 130 mm Hg completed Marah Leblanc [place] - [facility] 10/13/2018 08:53:26 10/13/19 19 Diastolic B/P less than 80 mm Hg completed Marah [place]blanc [place] - [facility] 10/13/2018 08:53:28 10/06/19 19 Systolic B/P less than 130 mm Hg completed Marah Ruizs [place] - [facility] 10/07/2018 15:28:11 10/06/19 19 Diastolic B/P less than 80 mm Hg completed Marah Leblanc [place] - [facility] 10/07/2018 15:28:14 02/16/20 15 Date of Last Pap Smear completed Chava Beach [facility] 09/23/2016 15:47:00 02/02/19 88 Tubal Ligation completed [place] - [facility] 01/19/2025 13:52:29 10/05/18 70 Tonsillectomy completed Flower How[place] - [facility] 01/19/2025 13:52:29 procedure on urinary bladder completed Magaly Valles [place] - [facility] 10/06/2024 10:40:18 [facility] 09/23/2016 15:53:29 Cholecystectomy, laparoscopic [facility] 09/23/2016 15:53:41 [facility] 09/23/2016 15:54:18 [facility] 09/23/2016 15:54:41 Unlisted procedure stomach completed Chava Yong [place] [facility] 09/23/2016 15:54:55 [facility] 09/23/2016 15:55:10 [facility] 09/23/2016 15:55:22 Imaging Results None recorded. [...] 14;Indic ation: Seborrhe ic Dermatit is - (12.6905 00) Not Available Not Available Not Available [...] Not Available Not Available No t Available [employer] 5 mg-325 mg tablet Take 1 tablet [...] completed Not Available Not Available Not Available [employer] 1 q12h prn pain 09/27 completed norco [...] Completi on: 09/06/20 14;Indic ation: Pain - (16.2148 00) Not Available Not Available Not Available [...] Not Available Not Available Easy Comfort Pen [place] 31 gauge x 1/4 USE DAILY with [...] Available No t Available FreeStyle Diana 2 Leslie USE DIRECTED active Not Available Not Available No t Available red beet 250 mg-sour turner extract 0.5 mg chewable tablet Take 1 tablet every day by oral route. 10/06 completed Not Available Not Available Not Available Omnipod 5 G6-G7 Intro Kit(Gen 5) subcutane ous cartridge and controlle r DIRECTED active Not Available Not Available No t Available Omnipod 5 Intro Kit(G6/Li [id number]) subcutane ous cartridge USE DIRECTED , CHANGING [...] weight Body temperature Heart rate Oxygen saturation Respiratory rate Pain severity - 0-10 verbal numeric rating [Score] - Reported Systolic And Diastolic Provider Name and Address Organization Details Last Updated DateTime 5 157.48 cm 41.2 kg/m2 254333. 28 g 98.2 [degF] 89 /min 93 % 18 /min 0 122/74 mm[Hg] [place] - [facility] 5 14:05:35 Date Recorded Body height Body mass index (BMI) Body weight Body temperature Heart rate Oxygen saturation Respiratory rate Pain severity - 0-10 verbal numeric rating [Score] - Reported Systolic And Diastolic Provider Name and Address Organization Details Last Updated DateTime 5 157.48 cm 42.1 kg/m2 949310. 25 g 98.1 [degF] 71 /min 93 % 18 /min 3 130/82 mm[Hg] [place] - [facility] 5 14:56:22 Date Recorded Body height Body mass index (BMI) Body weight Heart rate Oxygen saturation Respiratory rate Pain severity - 0-10 verbal numeric rating [Score] - Reported Systolic And Diastolic Provider Name and Address Organization Details Last Updated DateTime 5 157.48 cm 42.1 kg/m2 909345. 25 g 89 /min 92 % 22 /min 8 126/78 mm[Hg] [place] - [facility] 5 16:06:37 Date Recorded Body height Body mass index (BMI) Body weight Respiratory rate Pain severity - 0-10 verbal numeric rating [Score] - Reported Oxygen saturation Heart rate Body temperature Systolic And Diastolic Provider Name and Address Organization Details Last Updated DateTime 5 157.48 cm 40.8 kg/m2 966698. 1 g 18 /min 0 93 % 70 /min 98.1 [degF] 128/80 mm[Hg] Flower Sol [facility] 5 14:28:26 Date Recorded Body height Body mass index (BMI) Body weight Oxygen saturation Heart rate Body temperature Respiratory rate Pain severity - 0-10 verbal numeric rating [Score] - Reported Systolic And Diastolic Provider Name and Address Organization Details Last Updated DateTime 5 157.48 cm 41.8 kg/m2 390751. 86 g 94 % 65 /min 98 [degF] 18 /min 0 124/82 mm[Hg] Flower Sol [facility] 5 14:22:42 Social History Question Answer Notes LastModified by Organizat ion Details LastModified Time Tobacco Smoking Status Former Smoker Magaly laguna [facility] 04/11/2022 16:07:03 Do You Have An Advance Directive? No Information not available 04/11/2022 Are You Blind Or Do You Have Difficulty Seeing? No [email or web address] Information not available 02/11/2018 What Is Your [...] Or The Highest Degree You Have Received? [id number] Information not available 04/11/2022 How Many Days Of Moderate To Strenuous Exercise, Like A Brisk Walk, Did You Do In The Last 7 Days? 1 [email or web address] Information not available 02/11/2018 On Those Days That You Engage In Moderate To Strenuous Exercise, How Many Minutes, On Average, Do You Exercise? 1 Information not available 02/11/2018 Have There Been Any Changes To Your Family Or Social Situation? No Information not available 04/11/2022 How Hard Is It For You To Pay For The Very Basics Like Food, Housing, Medical Care, And Heating? [id number] Information not available 02/11/2018 What Is The Fluoride Status Of Your Home? Unknown Information not available 04/11/2022 When Did You Quit Smoking? 6-10yearssin [email or web address] Information not available 01/19/2025 Hard Of Hearing Or Deaf In One Or Both Ears? No [email or web address] Information not available 02/04/2018 Legally Blind In One Or Both Eyes? No Information not available 02/04/2018 Live Alone Or With Others? With Others [email or web address] Information not available 02/04/2018 Do You Have A Medical Power Of Party Plan Dealer? No Information not available 04/11/2022 What Was [...] available 01/19/2025 What Is Your Relationship Status? [email or web address] Information not available 12/01/2018 Do You Use Your Seat Belt Or Car Seat Routinely? Yes Information not available 01/19/2025 Seat Belts Used Routinely Yes Information not available 02/11/2018 Are You Sexually Active? No Information not available 01/19/2025 Smoke Alarm In Home Yes [email or web address] Information not available 02/04/2018 Do You Have [...] Has Tobacco Cessation Counseling Been Provided? Yes [email or web address] Information not available 02/11/2018 On What Date Was Tobacco Cessation Counseling Provided? 12/01/2018 [email or web address] Information not available 12/01/2018 How Many Years Have You Smoked Tobacco? 44 Stopped In 2019 Information not available 05/31/2024 Do You Have Difficulty Walking Or Climbing Stairs? No [email or web address] Information not available 02/11/2018 Sex: Female Functional [...] independently without assistance or assistive devices? [email or web address] Information not available 02/11/2018 Do you have difficulty doing errands alone? No [email or web address] Information not available 02/11/2018 Are you able to care for yourself independently? Yes [email or web address] Information not available 02/04/2018 Do you have difficulty dressing, bathing, grooming, or toileting? No [email or web address] Information not available 02/11/2018 Do you or have you ever used e-cigarettes or vape? Former user of electronic cigarettes Information not available 01/19/2025 What is your exercise level? None [email or web address] Information not available 02/11/2018 Mental Status Question Answer Note LastModified by Organizat ion Details LastModified Time Do you feel stressed (tense, restless, nervous, or anxious, or unable to sleep at night)? [id number] Information not available 01/19/2025 Do you have difficulty concentrating, remembering or making decisions? No [email or web address] Information no t available 02/11/2018 Family History [...] Problems Y Stroke Y Blood clot Y Lung Disease Y COPD Y Anemia [...] ICD10 Code Diagnosis IMO Codes Diagnosis Note [id number] Chava Beach MD [facility] [address] [place] [address] [place] [address] 07/28/2016 12:40:42 07/28/2016 15:32:09 Asthma 236975638 J45.909 Acute bronchitis 8873137 2 J20.9 Anxiety 05919527 F41.9 Chronic back pain 367982 002 G89.29 [id number] Chava Beach MD [address] [place] [address] 09/24/2016 10:22:46 09/24/2016 11:24:36 Gastroesophageal reflux disease 261211765 K21.9 Chronic ob structive pulmonary disease 58338721 J44.9 Acute bronchitis 3159748 2 J20.9 Abdominal pain 60680797 R10.9 Cough 22703100 R05 [id number] Chava Beach MD [address] [place] [address] 01/20/2018 14:22:17 01/20/2018 15:45:08 Chronic obstructive pulmonary disease 92109085 J44.9 Generalized headache 162 857124 R51 Gastroesop hageal reflux disease 655765351 K21.9 Essential hypertension 43644338 I10 Asthma 339564102 J45.90 9 Low back pain 599677723 M54.5 [id number] Dari Adam APRN [address] [place] [address] 02/04/2018 14:23:31 02/04/2018 16:39:19 Body mass index 30+ - obesity 787767769 Z68.38 Cough 71471091 R05 Hyperglycemia 88729847 R 73.9 Dizziness 479089007 R42 Fatigue 13100925 R53.83 Viral screening 07895707 4 Z11.59 Smoker 76812436 F17.466 [id number] Chava Beach MD [address] [place] [address] 02/09/2018 11:01:25 02/09/2018 12:47:16 Upper respiratory infection 31944602 J06.9 Cough 85554344 R05 Chronic ob structive pulmonary disease 66341383 J44.0 Dyspnea 778807858 R06.02 Decreased breath sounds 77205773 R09.89 [id number] Chava Beach MD [address] [place] [address] 02/16/2018 12:55:09 02/16/2018 14:04:12 Chronic obstructive pulmonary disease 02631855 J44.0 Bronchitis 19396214 J40 [id number] Chava Beach MD [address] [place] [address] 10/06/2018 14:43:16 10/06/2018 16:28:13 Chronic obstructive pulmonary disease 05597583 J44.0 Edema 754325486 R60.9 Upper resp iratory infection 12354492 J06.9 Harsh breath sounds 4765 3008 R09.89 [id number] Chava Beach MD [address] [place] [address] 10/13/2018 08:34:14 10/13/2018 10:17:51 Chronic obstructive pulmonary disease 58006806 J44.0 Generalized headache 162 473133 R51 Gastroesop hageal reflux disease 988049553 K21.9 Essential hypertension 64747902 I10 Anxiety 23205849 F41.9 [id number] Chava Beach MD [address] [place] [address] 12/01/2018 10:02:07 12/01/2018 11:51:11 Chronic obstructive pulmonary disease 43350023 J44.0 Injury of tendon of the rotator cuff of shoulder 495785085 S46.001A Upper resp iratory infection 43924001 J06.9 Dizziness 059426978 R42 Arthritis 3311194 M19.90 Trying to give up smoking 389370286 Z72.0 [id number] Any Bo APRN [address] [address] 04/11/2022 15:37:57 05/26/2022 14:09:55 Chronic obstructive pulmonary disease 75193641 J44.0 continue meds Essential hypertension 08549111 I10 continue plan of care Gastroesop hageal reflux disease 347678480 K21.9 continue plan of care Generalized headache 162 977009 R51.9 History of cerebrovascular accident without residual deficits 120208434 Z86.73 History of primary malignant neoplasm of lung 702171125 Z85.118 keep follow up appointmen ts with pulmonolog y Hypercholesterolemia 136 54646 E78.00 labs Diabetes mellitus 572382 09 E11.9 gave sample of diana will [...] any questions or concerns arise. Seasonal allergy 9554943 04 J30.2 [id number] Any Bo [address] [address] 10/13/2022 11:15:48 10/13/2022 12:38:10 Type 2 diabetes mellitus 32583174 E11.9 Essential hypertension 18551222 I10 continue plan of care Hypercholesterolemia 136 75094 E78.00 labs Chronic ob structive pulmonary disease 48690876 J44.0 continue meds Gastroesop hageal reflux disease 790735850 K21.9 continue plan of care Bilateral cramp of muscle of lower limbs 8880095466 3790206 R25.2 History of cerebrovascular accident without residual deficits 488792500 Z86.73 History of primary malignant neoplasm of lung 147485881 Z85.118 keep follow up appointmen ts with pulmonolog y Anxiety 46048608 F41.9 [id number] Any Bo [address] [address] 10/21/2022 15:56:18 10/21/2022 16:25:05 Anemia 746600058 D64.9 check labs, pt refused stool. will think about colonoscop ydiscussed the importance of having a colonoscop y with pt [id number] Any Bo 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 [address] [address] 12/02/2022 11:14:57 12/02/2022 11:41:22 Acute right otitis media 268855928 H66.91 stop cefdinir start amoxicilli n Acute otitis externa 302 52634 H60.830 [id number] Any Bo [address] [address] 04/24/2023 15:53:16 04/24/2023 16:53:20 Type 2 diabetes mellitus 99144941 E11.9 forms filled out and given back to pt [id number] Any Bo [address] [address] 09/11/2023 15:16:01 09/11/2023 15:50:13 Type 2 diabetes mellitus 57228307 E11.9 forms filled out and given back to ptobtain labs from pcp [id number] Any Bo [address] [address] 05/31/2024 13:26:44 05/31/2024 14:30:51 Type 2 diabetes mellitus 86303647 E11.9 continue meds and dietwill add trulicity Essential hypertension 13708666 I10 continue plan of care Body mass index 30+ - obesity 851651448 Z68.41 41.5 Obesity 105689765 E66.9 Osteoporos is screening declined 9125875436 87951 Z53.20 Headache 20709383 R51.9 return if symptoms worsen or do not improve [id number] Carolinafermin [address] [address] 10/06/2024 10:23:27 10/06/2024 12:04:53 Type 2 diabetes mellitus 77924940 E11.9 continue meds and diethold trulicity until ok with urology Essential hypertension 88942005 I10 continue plan of care Hypercholesterolemia 136 88843 E78.00 labs [id number] Carolinafermin Bo [address] [address] 01/13/2025 14:57:10 01/13/2025 16:00:14 Type 2 diabetes mellitus 12897293 E11.9 continue meds and diet Biomedical equipment procedure 136967215 Z46.81 268573 [id number] Carolinafermin Bo [place] [address] 01/19/2025 13:45:16 01/19/2025 15:14:08 Adult health examination 161941934 Z00.00 Depression screening 171 233172 Z13.31 A depression screening was completed via a standardiz ed screening tool. 5 minutes were spent discussing depression screening results and risk factors. Examinatio n of blood pressure 243654660 Z01.30 Diet education 46644706 Z71.3 Counseling 693610327 Z71 .82 Exercise counseling . Patient encouraged to exercise 30 minutes 5 days a week. At [facility] ed risk for falls 733894084 Z91.81 STEADI FAST screening score of __0___. Advance care planning 71 1380953 Z71.89 Screening for osteoporosis 251125245 Z13.820 409750 Medication declined 4061 98677 Z28.21 9731547880 Essential hypertension 22672684 I10 continue plan of care History of cerebrovascular accident without residual deficits 747415376 Z86.73 Hypercholesterolemia 136 10082 E78.00 labs Type 2 shelton betes mellitus 56059414 E11.9 continue meds and diet Malignant neoplasm of urinary bladder 622513614 C67.9 [id number] Dellateetee vi [address] [address] 03/24/2025 14:37:12 03/24/2025 15:41:48 Cyst of skin 532865399 L72.9 19475 packing removed.ed ucated how to do dressing changeclea ariana with salinepack ed with saline soaked gauze and sterle qtipcovere d with telfa and wrapped with kerlexpt tolerated well [id number] Carolinafermin Bo [address] [address] 03/28/2025 15:58:20 03/28/2025 17:20:11 Cyst of skin 995452370 L72.9 59402 packing removed.ed ucated how to do dressing changeclea ariana with salinepack ed with saline soaked gauze and sterle qtipcovere d with telfa and wrapped with kerlexpt tolerated well [id number] Any BarlowFABIÁN lebron [address] [address] 05/08/2025 14:01:39 05/08/2025 15:12:20 Type 2 diabetes mellitus 95487872 E11.9 continue meds and dietwill return once training has been set up [id number] Any Barlowvi 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 [address] [address] 07/07/2025 13:39:39 07/07/2025 15:34:08 Type 2 diabetes mellitus 41975084 E11.9 continue omnipod and dexcomif any issues [...] Erin Thacker Erich 04/11/2022 1 [place] [id number] Erin Thacker Erich [id number] Erin Thacker Erich 05/31/2024 1 [employer] (MEDICARE REPLACEMENT/A DVANTAGE - PPO) ErinAnahi Jung [id number] ErinAnahi Jung 10/06/2024 1 [employer] - GOLD PLUS (MEDICARE REPLACEMENT/A DVANTAGE - HMO) Erin Kirstie Jung [id number] Erin Thacker Erich 05/08/2025 1 [employer] - GOLD PLUS (MEDICARE REPLACEMENT/A DVANTAGE - HMO) ErinAnahi Jung [id number] ErinAnahi Jung 07/06/2025 [place] ErinAnahi Jung [id number] Erin Thacker Erich 01/19/2025 1 [employer] (MEDICARE SUPPLEMENT) ErinAnahi Jung [id number] ErinAnahi Jung 04/02/2022 1 [facility] [id number] ErinAnahi Jung [id number] ErinAnahi Jung 07/06/2025 1 [facility] (MEDICARE REPLACEMENT/A DVANTAGE - HMO) Erin Jung [id number] Erin Thacker Erich Notes Date Note Type Note Provider Name and Address Organization Details Recorded Time 01/19/2025 text/html Medicare Annual Wellness VisitReported by Patient 69 yr old female presents for a Medicare annual wellness exam. pt states she is having resection on due to bladder tumors. needs labs for chronic dx such as dm,lipids,copd,cva, bladder ca,lung ca Any Bo APRN [address], [place], [address], [place] [facility] 03/07/2025 10:27:19 03/24/2025 text/html 69 yr old female presents for a dressing change to recent cyst removal site to right upper arm on by dr blount. pt states dressing has not been changed Any Bo APRN [address], [place], [address], [place] [facility] 03/24/2025 16:41:41 03/28/2025 text/html 69 yr old female presents for a right arm wound recheck/dressing change. pt states she tolerated dressing change well over the weekend Any Bo APRN [address], [place], [address], [place] [facility] 03/28/2025 16:49:56 05/08/2025 text/html [...] pod 5 and cgm, set up. Any Bo APRN [address], [place], [address], [place] [facility] 05/08/2025 15:37:15 07/07/2025 text/html ROS as noted in the HPI 69 yr old female presents for a follow up on diabetes and lab work.pt states doing well on ominpod 5. pt states glucose is being more controlled and she feels better Any Bo, 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 [address], [place], [address], [place] [facility] 07/07/2025 16:24:06 OBGyn Episode No OBEpisode recorded.
--- OUTSIDE RECORDS SUMMARY | 2025-08-28 08:27 | XMS_ITS | Clinical Summary ---
Author Organization [facility] Address [address] [place] [address] Care Team Providers Care Louver Mortiser Operator Name Role Phone Orlando Zhang MD Primary Care Provider [phone] Allergies Active Allergy Reactions Criticality Noted Date [...] 06/2023 Potentially Unsafe Housing Conditions Not on igno e 07/13/2023 Family and Community Support Answer [...] Of Support Discussed With: Patient Care Teams Louver Mortiser Operator Relationship Specialty Start Date End Date Orlando Zhang MD [address] [place] [address] PCP - General Family Medicine 10/21/19
--- OUTSIDE RECORDS SUMMARY | 2025-08-28 08:27 | XMS_ITS | Referral Summary ---
Author Organization [facility] ([place], [place], [place], [place], [place]) Address [address] [place] [address] Care Team Providers Care Sales Vendor Name Role Phone Unavailable Primary Care Provider Unavailabl e Encounters Date Type Department Care Team Description 06/13/2025 7:49 AM EDT - 06/13/2025 11:59 PM EDT Hospital Encounter [facility] PET CT - [address] [place] [address] Tim Thomas MD Lung nodule Discharge Disposition: [...]
--- OUTSIDE RECORDS SUMMARY | 2025-08-28 08:27 | XMS_ITS | Clinical Summary ---
Author Organization [facility] Address [address] [facility] [address] [place] [id number] Phone Care Team Providers Care Electric Crane Operator Name Role Phone Camelia Patterson MD [phone] Conditions or Problems No information available. Medications No information available. Medications Administered No information available. Allergies, Adverse Reactions, Alerts No information available. Results No information available. Plan of Care No information available. Procedures No information available. Vital Signs No information available. Immunizations No information available. Advance Directives No information available.
--- OUTSIDE RECORDS SUMMARY | 2025-08-28 08:27 | XMS_ITS | Clinical Summary ---
Author Organization [facility] ([place], [place], [place], [place], [place]) Address [address] [place] [address] Care Team Providers Care Multimedia Designer Name Role Phone Unavailable Primary Care Provider Unavailabl e Encounters Date Type Department Care Team Description 06/13/2025 7:49 AM EDT - 06/13/2025 11:59 PM EDT Hospital Encounter [facility] PET CT - [address] [place] [address] Tim Thomas MD Lung nodule [...]
--- OUTSIDE RECORDS SUMMARY | 2025-08-28 08:27 | XMS_ITS ---
Author Organization [facility] Address [address] [place] [address] Care Team Providers Care Financial Risk Manager Name Role Phone Orlando Zhang MD Primary Care Provider [phone] Active Problems Problem Noted Date Diagnosed Date Malignant neoplasm of overlapping sites of bladd er 05/04/2025 Bladder mass 06/30/2024 Calculus of ureter 06/30/2024 Lung nodule 04/04/2019 Overview (04/04/2019): Added automatically from request for surgery [id number] Malignant neoplasm of lower lobe of right lung 0 03/31/2019 Cancer Staging:Clinical: Unsigned Pathologic stage from 04/28/2019:Stage IA3(pT1c, pN0, cM0) - Signed by Ruma Yang MD on 04/28/[address] of the chest 03/09/2019 Overview (03/09/2019): Added automatically from request for surgery [id number] Current Treatment and Therapy Plans OP Urology [...]
--- OUTSIDE RECORDS SUMMARY | 2025-08-28 08:27 | XMS_ITS | Continuity of Care Document ---
Author Organization [facility] Address [address] [place]NI[place] ALICEA [address] Care Team Providers Care Cena Name Role Phone ANY BO Primary Care Provider Unavailmary ewing Assessment No assessment recorded. Plan of Treatment Reminders Order Date Submit Date Provider Last Modified By Organization Details Last Modified Time Details Appointments None recorded . Lab HbA1c (hemoglo bin A1c), blood 07/07/20 25 ALBIN Ann, [address], [place], [place], [address], 5 13:07:30 CBC w/ auto diff 07/07/20 25 ALBIN Ann, [address], Ehsan F, [place], [address], 5 13:07:27 lipid panel, serum 07/07/20 25 ALBIN Ann, [address], [place] F, [place], [address], 5 13:07:29 microalb umin/cre atinine, mass ratio, urine 07/07/20 25 ALBIN Ann, [address], [place], [place], [address], 5 13:07:29 CMP, serum or plasma 07/07/20 25 ALBIN Ann, [address], [place] F, [place], [address], 13:07:28 Referral None recorded . Procedures None [...] /uL 3.4-10 .8 normal Not Available [facility] ([facility]) [address] [place], [address], 07/08/2025 13:07:27 07/07/2007/08/2025 CBC WITH DIFFE RENTI AL/PL ATELE T RBC 3.75 x10e6 /uL 3.77-5 .28 below low normal Not Available [facility] ([facility]) [address] [place], [address], 07/08/2025 13:07:27 07/07/20 25 07/08/2025 CBC WITH DIFFE RENTI AL/PL ATELE T hemoglobin 12.0 g/dL 11.1-1 5.9 normal Not Available [facility] ([facility]) [address] [place], [address], 07/08/2025 13:07:27 07/07/2007/08/2025 CBC WITH DIFFE RENTI AL/PL ATELE T hematocrit 37.5 % 34.0-4 6.6 normal Not Available [facility] ([facility]) [address] [place], [address], 07/08/2025 13:07:27 07/07/20 25 07/08/2025 CBC WITH DIFFE RENTI AL/PL ATELE T MCV 100 fL 79-97 above high normal Not Available [facility] ([facility]) [address] [place], [address], 07/08/2025 13:07:27 07/07/20 25 07/08/2025 CBC WITH DIFFE RENTI AL/PL ATELE T MCH 32.0 pg 26.6-3 3.0 normal Not Available [facility] ([facility]) [address], [place], [address], 07/08/2025 13:07:27 07/07/20 25 07/08/2025 CBC WITH DIFFE RENTI AL/PL ATELE T MCHC 32.0 g/dL 31.5-3 5.7 normal Not Available [facility] ([facility]) [address], [place], [address], 07/08/2025 13:07:27 07/07/20 25 07/08/2025 CBC WITH DIFFE RENTI AL/PL ATELE T RDW 14.2 % 11.7-1 5.4 Not Available [facility] ([facility]) [address], [place], [address], 07/08/2025 13:07:27 07/07/20 25 07/08/2025 CBC WITH DIFFE RENTI AL/PL ATELE T platelets 203 x10e3 /uL 150-45 0 normal Not Available [facility] ([facility]) [address], [place], [address], 07/08/2025 13:07:27 07/07/20 25 07/08/2025 CBC WITH DIFFE RENTI AL/PL ATELE T neutrophils 74 % not estab. normal Not Available [facility] ([facility]) [address], [place], [address], 07/08/2025 13:07:27 07/07/20 25 07/08/2025 CBC WITH DIFFE RENTI AL/PL ATELE T lymphs 18 % not estab. normal Not Available [facility] ([facility]) [address] [place], [address], 07/08/2025 13:07:27 07/07/20 25 07/08/2025 CBC WITH DIFFE RENTI AL/PL ATELE T monocytes 6 % not estab. normal Not Available [facility] ([facility]) [address], [place], [address], 07/08/2025 13:07:27 07/07/20 25 07/08/2025 CBC WITH DIFFE RENTI AL/PL ATELE T eos 2 % not estab. normal Not Available [facility] ([facility]) [address], [place], [address], 07/08/2025 13:07:27 07/07/2007/08/2025 CBC WITH DIFFE RENTI AL/PL ATELE T basos 0 % not estab. 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 0 normal Not Available [facility] ([facility]) [address], [place], [address], 07/08/2025 13:07:27 07/07/20 25 07/08/2025 CBC WITH DIFFE RENTI AL/PL ATELE T lymphs (absolute) 1.4 x10e3 /uL 0.7-3. 1 normal Not Available [facility] ([facility]) [address] [place], [address], 07/08/2025 13:07:27 07/07/20 25 07/08/2025 CBC WITH DIFFE RENTI AL/PL ATELE T monocytes(ab solute) 0.5 x10e3 /uL 0.1-0. 9 normal Not Available [facility] ([facility]) [address], [place], [address], 07/08/2025 13:07:27 07/07/20 25 07/08/2025 CBC WITH DIFFE RENTI AL/PL ATELE T eos (absolute) 0.1 x10e3 /uL 0.0-0. 4 normal Not Available [facility] ([facility]) [address], [place], [address], 07/08/2025 13:07:27 07/07/20 25 07/08/2025 CBC WITH DIFFE RENTI AL/PL ATELE T baso (absolute) 0.0 x10e3 /uL 0.0-0. 2 normal Not Available [facility] ([facility]) [address], [place], [address], 07/08/2025 13:07:27 07/07/20 25 07/08/2025 CBC WITH DIFFE RENTI AL/PL ATELE T immature granulocytes 0 % not estab. Not Available [facility] ([facility]) [address], [place], [address], 07/08/2025 13:07:27 07/07/20 25 07/08/2025 CBC WITH DIFFE RENTI AL/PL ATELE T immature grans (abs) 0.0 x10e3 /uL 0.0-0. 1 Not Available [facility] ([facility]) [address], [place], [address], 07/08/2025 13:07:27 07/07/20 25 07/08/2025 CBC WITH DIFFE RENTI AL/PL ATELE T NRBC RACK ROOM WORKER Not Available [facility] ([facility]) [address], [place], [address], 07/08/2025 13:07:27 07/07/20 25 07/08/2025 CBC WITH DIFFE RENTI AL/PL ATELE T hematology comments: RACK ROOM WORKER Not Available [facility] ([facility]) [address], [place], [address], 07/08/2025 13:07:27 07/07/20 25 07/08/2025 COMP. METAB OLIC PANEL (14) glucose 158 mg/dL 70-99 above high normal Not Available [facility] ([facility]) [address], [place], [address], 07/08/2025 13:07:28 07/07/20 25 07/08/2025 COMP. METAB OLIC PANEL (14) BUN 16 mg/dL 8-27 normal Not Available [facility] ([facility]) [address], [place], [address], 07/08/2025 13:07:28 07/07/20 25 07/08/2025 COMP. METAB OLIC PANEL (14) creatinine 0.81 mg/dL 0.57-1 .00 normal Not Available [facility] ([facility]) [address], [place], [address], 07/08/2025 13:07:28 07/07/20 25 07/08/2025 COMP. METAB OLIC PANEL (14) eGFR 79 mL/mi n/1.7 3 >59 normal Not Available [facility] ([facility]) [address] [place], [address], 07/08/2025 13:07:28 07/07/20 25 07/08/2025 COMP. METAB [...] at [email or web address] org. Not Available [facility] ([facility]) [address] [place], [address], 07/08/2025 13:07:28 07/07/2007/08/2025 COMP. METAB OLIC PANEL (14) BUN/creatini ne ratio 23 09- normal Not Available [facility] ([facility]) [address] [place], [address], 07/08/2025 13:07:28 07/07/20 25 07/08/2025 COMP. METAB OLIC PANEL (14) sodium 139 mmol/ L 134-14 4 normal Not Available [facility] ([facility]) [address] [place], [address], 07/08/2025 13:07:28 07/07/20 25 07/08/2025 COMP. METAB OLIC PANEL (14) potassium 3.9 mmol/ L 3.5-5. 2 normal Not Available [facility] ([facility]) [address] [place], [address], 07/08/2025 13:07:28 07/07/20 25 07/08/2025 COMP. METAB OLIC PANEL (14) chloride 96 mmol/ L 96-106 normal Not Available [facility] ([facility]) [address] [place], [address], 07/08/2025 13:07:28 07/07/20 25 07/08/2025 COMP. METAB OLIC PANEL (14) carbon dioxide, total 31 mmol/ L 20-29 above high normal Not Available [facility] ([facility]) [address] [place], [address], 07/08/2025 13:07:28 07/07/20 25 07/08/2025 COMP. METAB OLIC PANEL (14) calcium 8.9 mg/dL 8.7-10 .3 normal Not Available [facility] ([facility]) [address] [place], [address], 07/08/2025 13:07:28 07/07/20 25 07/08/2025 COMP. METAB OLIC PANEL (14) protein, total 6.5 g/dL 6.0-8. 5 normal Not Available [facility] ([facility]) [address] [place], [address], 07/08/2025 13:07:28 07/07/20 25 07/08/2025 COMP. METAB OLIC PANEL (14) albumin 4.4 g/dL 3.9-4. 9 normal Not Available [facility] ([facility]) [address] [place], [address], 07/08/2025 13:07:28 07/07/20 25 07/08/2025 COMP. METAB OLIC PANEL (14) globulin, total 2.1 g/dL 1.5-4. 5 Not Available [facility] ([facility]) [address] [place], [address], 07/08/2025 13:07:28 07/07/20 25 07/08/2025 COMP. METAB OLIC PANEL (14) bilirubin, total 0.5 mg/dL 0.0-1. 2 normal Not Available [facility] ([facility]) [address] [place], [address], 07/08/2025 13:07:28 07/07/20 25 07/08/2025 COMP. METAB OLIC PANEL (14) alkaline phosphatase 142 IU/L 49-135 above high normal Not Available [facility] ([facility]) [address] [place], [address], 07/08/2025 13:07:28 07/07/20 25 07/08/2025 COMP. METAB OLIC PANEL (14) AST (SGOT) 14 IU/L 0-40 normal Not Available [facility] ([facility]) [address] [place], [address], 07/08/2025 13:07:28 07/07/20 25 07/08/2025 COMP. METAB OLIC PANEL (14) ALT (SGPT) 14 IU/L 0-32 normal Not Available [facility] ([facility]) [address] [place], [address], 07/08/2025 13:07:28 07/07/20 25 07/08/2025 LIPID PANEL cholesterol, total 185 mg/dL 100-19 9 normal Not Available [facility] ([facility]) [address] [place], [address], 07/08/2025 13:07:29 07/07/20 25 07/08/2025 LIPID PANEL triglyceride s 155 mg/dL 0-149 above high normal Not Available [facility] ([facility]) [address] [place], [address], 07/08/2025 13:07:29 07/07/20 25 07/08/2025 LIPID PANEL HDL cholesterol 42 mg/dL >39 normal Not Available [facility] ([facility]) [address] [place], [address], 07/08/2025 13:07:29 07/07/20 25 07/08/2025 LIPID PANEL VLDL cholesterol zach 28 mg/dL 5-40 Not Available [facility] ([facility]) [address] [place], [address], 07/08/2025 13:07:29 07/07/20 25 07/08/2025 LIPID PANEL LDL chol calc ([facility]) 115 mg/dL 0-99 above high normal Not Available [facility] ([facility]) [address], [place], [address], 07/08/2025 13:07:29 07/07/2007/08/2025 LIPID PANEL LDL calc comment: 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 normal Not Available [facility] ([facility]) [address], [place], [address], 07/08/2025 13:07:29 07/07/20 25 07/08/2025 ALBUM IN/CR EAT RATIO , RANDO M UR albumin, urine 6.0 ug/mL not estab. Not Available [facility] ([facility]) [address], [place], [address], 07/08/2025 13:07:29 07/07/2007/08/2025 ALBUM IN/CR EAT RATIO , RANDO M UR alb/creat ratio 9 mg/g_ creat 0-29 Laura l: 0 - 29 Moder ately incre ased: 30 - 300 Sever hola incre ased: >300 Not Available [facility] ([facility]) [address], [place], [address], 07/08/2025 13:07:29 07/07/2007/08/2025 HEMOG LOBIN A1C hemoglobin A1C 6.4 % 4.8-5. 6 above high normal Predi abete s: 5.7 - 6.4 Diabe quinton: >6.4 Glyce aaron contr ol for adult s with diabe quinton: <7.0 Not Available [facility] ([facility]) [address] [place], [address], 07/08/2025 13:07:30 Result Notes None recorded. 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 [address], [place], [address], [place] - [facility] 2 16:15:31 Generalized headache 531233596 Active Chava grayson null, [place] - [facility] 6 15:57:11 Gastroesopha geal reflux disease 308085857 Active Chava grayson null, [place] - [facility] 6 15:57:24 Chronic obstructive pulmonary disease 22296998 Active Chava grayson null, [place] - [facility] 6 15:57:37 Essential hypertension 91692898 Active Chava grayson null, [place] - [facility] 6 15:57:53 Type 2 diabetes mellitus 86468273 Active 2021 Any Bo APRN [address], [place], [address], [place] - [facility] 2 16:15:36 Hypercholest erolemia 42922017 Active 2021 Any Bo APRN [address], [place], [address], [place] - [facility] 2 16:16:05 History of primary malignant neoplasm of lung 629277316 Active 2021 removed right lower lung Magaly [facility], [place] - [facility] 4 13:50:05 Malignant neoplasm of urinary bladder 811556207 Active 2024 Any Bo, [employer]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 [address], [place], [address], [place] - [facility] 5 11:44:37 Notes:Some problems listed i n Documents: #[id number], #[id number] could not be added to this patient's [...] than 130 mm Hg completed Marahemy Ruiz[place] - [facility] 10/07/2018 15:28:11 10/06/19 19 Diastolic B/P less than 80 mm Hg completed Marahemy [place]iz[place] - [facility] 10/07/2018 15:28:14 02/16/20 15 Date of Last Pap Smear completed Chava [place] - [facility] 09/23/2016 15:47:00 02/02/19 88 Tubal Ligation completed Flower [place] - [facility] 01/19/2025 13:52:29 10/05/18 70 Tonsillectomy completed [place] - [facility] 01/19/2025 13:52:29 procedure on urinary bladder completed Magaly Valles [place] - [facility] 10/06/2024 10:40:18 Breast Biopsy completed [place] - [facility] 09/23/2016 15:53:29 Cholecystectomy, laparoscopic [place] - [facility] 09/23/2016 15:53:41 Colposcopy [place] - [facility] 09/23/2016 15:54:18 Endometrial Biopsy completed Chava [place] - [facility] 09/23/2016 15:54:41 Unlisted procedure stomach completed Chava [place] - [facility] 09/23/2016 15:54:55 Tonsillectomy completed Chava [place] - [facility] 09/23/2016 15:55:10 Tubal Ligation [facility] [place] - [facility] 15:55:22 Imaging Results None recorded. Procedure [...] 14;Indic ation: Seborrhe ic Dermatit is - (12.0844 00) Not Available Not Available Not Available [...] Not Available Not Available No t Available Skillman 5 mg-325 mg tablet Take 1 tablet [...] completed Not Available Not Available Not Available Skillman 1 q12h prn pain 09/27 completed norco 5 /325mg;R ecorded Status: Recorded on: 08/28/20 15 1:09PM;U ser: norma crawford;Est. Completi on: 09/27/20 15;Indic ation: - (-5) Not Available Not Available Not Available meloxicam one daily 11/30 completed meloxica m 15 mg.;Imlan rded Status: Recorded on: 11/08/19 14 8:28PM;D [...] Rinaldi on: 09/06/20 14;Indic ation: Pain - (63.1355 00) Not Available Not Available Not Available [...] Not Available Not Available Easy Comfort Pen [place] 31 gauge x 1/4 USE DAILY with [...] Available Not Available Not Available Flucelvax Quad [id number] (PF) 60 mcg (15 mcg x 4)/0.5 mL IM syringe 04/11 completed Not Available Not Available Not Available Omnipod Dash Pods (Gen 4) subcutane ous cartridge CHANGE POD EVERY 2 TO 3 DAYS DIRECTED 07/07 completed Not Available Not Available Not Available FreeStyle Diana 2 Sensor kit DIRECTED CHANGING EVERY 14 DAYS active Not Available Not Available No t Available FreeStyle Diana 2 [place] USE DIRECTED active Not Available Not Available No t Available red beet 250 mg-sour turner extract 0.5 mg chewable tablet Take 1 tablet every day by oral route. 10/06 completed Not Available Not Available Not Available Omnipod 5 G6-G7 Intro Kit(Gen 5) subcutane ous cartridge and controlle r DIRECTED active Not Available Not Available No t Available Omnipod 5 Intro Kit(G6/Li [id number]) subcutane ous cartridge USE DIRECTED , CHANGING [...] Last Updated DateTime 157.48 cm 41.8 kg/m2 383837. 86 g 94 % 65 /min 98 [...] How Much Tobacco Do You Chew? None [email or web address] Information not available 02/11/2018 Are You Deaf Or Do You Have Serious Difficulty Hearing? No [email or web address] Information not available 02/11/2018 What Type Of Diet Are You Following? DIABETIC Information not available 01/19/2025 Which Illicit Or Recreational Drugs Have You Used? None Information not available 02/11/2018 What Is The Highest Grade Or Level Of School You Have Completed Or The Highest Degree You Have Received? [id number] Information not available 04/11/2022 How Many Days Of Moderate To Strenuous Exercise, Like A Brisk Walk, Did You Do In The Last 7 Days? 1 [email or web address] Information not available 02/11/2018 On Those Days That You Engage In Moderate To Strenuous Exercise, How Many Minutes, On Average, Do You Exercise? 1 Information not available 02/11/2018 Have There Been Any Changes To Your Family Or Social Situation? No Information not available 04/11/2022 How Hard Is It For You To Pay For The Very Basics Like Food, Housing, Medical Care, And Heating? [id number] [email or web address] Information not available 02/11/2018 What Is The Fluoride Status Of Your Home? Unknown Information not available 04/11/2022 When Did You Quit Smoking? 6-10yearssin [email or web address] Information not available 01/19/2025 Hard Of Hearing Or Deaf In One Or Both Ears? No [email or web address] Information not available 02/04/2018 Legally Blind In One Or Both Eyes? No Information not available 02/04/2018 Live Alone Or With Others? With Others [email or web address] Information not available 02/04/2018 Do You Have A Medical Power Of Bushing Press Operator? No Information not available 04/11/2022 What [...] available 01/19/2025 What Is Your Relationship Status? [email or web address] Information not available 12/01/2018 Do You Use Your Seat Belt Or Car Seat Routinely? Yes Information not available 01/19/2025 Seat Belts Used Routinely Yes [email or web address] Information not available 02/11/2018 Are You Sexually Active? No Information not available 01/19/2025 Smoke Alarm In Home Yes [email or web address] Information not available 02/04/2018 Do You Have [...] Has Tobacco Cessation Counseling Been Provided? Yes [email or web address] Information not available 02/11/2018 On What Date Was Tobacco Cessation Counseling Provided? 12/01/2018 Information not available 12/01/2018 How Many Years Have You Smoked Tobacco? 44 Stopped In 2019 Information not available 05/31/2024 Do You Have Difficulty Walking Or Climbing Stairs? No [email or web address] Information not available 02/11/2018 Sex: Female Functional [...] independently without assistance or assistive devices? YESWOREST [email or web address] Information not available 02/11/2018 Do you have difficulty doing errands alone? No [email or web address] Information not available 02/11/2018 Are you able to care for yourself independently? Yes [email or web address] Information not available 02/04/2018 Do you have difficulty dressing, bathing, grooming, or toileting? No Information not available 02/11/2018 Do you or have you ever used e-cigarettes or vape? Former user of electronic cigarettes Information not available 01/19/2025 What is your exercise level? None [email or web address] Information not available 02/11/2018 Mental Status Question Answer Note LastModified by Organizat ion Details LastModified Time Do you feel stressed (tense, restless, nervous, or anxious, or unable to sleep at night)? [id number] Information not available 01/19/2025 Do you have difficulty concentrating, remembering or making decisions? No Information no t available 02/11/2018 Family History [...] 13:52:05 Medical History Condition Response COPD Y Obesity Y Acid Reflux (GERD) Y Stroke Y Irritable Bowel Syndrome Y Constipation Y Lung Disease Y Blood clot Y Anemia Y Diabetes Y Hypertension Y Muscle, Joint, or Bone Problems Y Vision or Eye Problems Y Arthritis Y Cancer Y Headaches Y Ear or Hearing Problems Y Kidney or Bladder Problems Y Abnormal PAP Y Degenerative Disc Disease Y Insomnia Y Gynecological History Statement/Question Response Date of [...] 10/06/2024 10:25:47 influenza, unspecified formulation 8 completed Flowerramiro [place] null, [place] - [facility] 09/11/2023 15:28:59 [...] ICD10 Code Diagnosis IMO Codes Diagnosis Note [id number] Any Bo APRN [address] [address] 07/07/2025 13:39:39 07/07/2025 15:34:08 Type 2 diabetes mellitus 02434122 E11.9 continue omnipod and dexcomif [facility] Health Concerns Section Related Observation LastModified by Organization Detai ls LastModified Time None Recorded Concern Status LastModified by Organization Details LastModified Time None Recorded Payers Encounter Date Sequence Insurance Name Policy Number Policy Mercado Covered Member ID Mercado Member ID Guarantor Name 07/07/2025 1 [facility] (MEDICARE REPLACEMENT/A DVANTAGE - HMO) Erin Jung [id number] Erin Jung Notes Date Note Type Note Provider Name and Address Organization Details Recorded Time 07/07/2025 text/html ROS as noted in the HPI 69 yr old female presents for a follow up on diabetes and lab work.pt states doing well on ominpod 5. pt states glucose is being more controlled and she feels better Any Bo, FABIÁN [address], [place], [address], [place] - [facility] 07/07/2025 16:24:06 OBGyn Episode No OBEpisode recorded.
--- OUTSIDE RECORDS SUMMARY | 2025-08-28 08:27 | XMS_ITS | Clinical Summary ---
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 [id number] Health Allergies Active Allergy Reactions [...] (04/04/2019): Added automatically from request for surgery [id number] Malignant neoplasm of lower lobe of right lung 0 03/31/2019 Cancer Staging:Clinical: Unsigned Pathologic stage from 04/28/2019:Stage IA3(pT1c, pN0, cM0) - Signed by Ruma Yang MD on 04/28/[address] of the chest 03/09/2019 Overview (03/09/2019): Added automatically from request for surgery [id number] Resolved Problems Problem Noted Date Diagnosed Date Resolved Date Squamous cell carcinoma of lung, right 04/28/2019 Encounters Date Type Department Care Team Description 06/08/2025 Telephone [facility] at [facility] [address] [place] [address] Jarod Jones MA 06/08/2025 Telephone [facility] at [facility] [address] [facility] [address] [place] [address] Trevon Grant MD 06/08/2025 Telephone [facility] at [facility] [address] [facility] [address] [place] [address] Jarod Jones MA 06/01/2025 Orders Only [facility] [address] [place], [place] [id number] Trevon Grant MD 06/01/2025 Orders Only [facility] at [facility] [address] [facility] [address] [place] [address] Saray Hollis RN 05/30/2025 Telephone [facility] at [facility] [address] [facility] [address] [place] [address] Trevon Grant MD Results (Procedure 1st Attempt ) from Last 3 Months Family History [...] drink = 0.6 oz pur e alcohol) [facility] Utilities Answer Date Recorded In the past 12 months has e electric, gas, oil, or water company [...] Procedure Name Priority Date/Time Associated Diagnosis Comments HEMOGLOBIN A1C Routine 01/25/2025 3:38 AM EDT ED HCV AB REFLEX TO HCV QUANT Routine 06/12/2024 9:00 PM EDT from Last 3 Months or Most Recently Relevant to Health Maintenance Results * (ABNORMAL) Hemoglobin A1c (01/25/2025 3:38 AM EDT) Hemoglobin A1C 6.8(H) 4.0 - 5.6 % 01/25/2025 4:47 AM EDT [facility]ALTH [facility] Comment: Hemoglobin A1c Interpretation Guidelines: [...] MD LAB BLOOD ORDERABLES Final Resul t [facility] [address] * ED HCV Ab Reflex To HCV Quant (06/12/2024 9:00 PM EDT) HCV Ab Nonreactive Nonreactive 06/12/2024 10:06 PM EDT [facility] Comment:Health Department no tified in accordance with reportable infectious disease guidelines. HCVAB Number 0.12 0.00 - 0.79 S/CO 06/12/2024 10:06 PM EDT [facility] Serum 06/12/2024 9:00 PM EDT 06/12/2024 9:10 PM EDT us Olegario [facility] LAB BLOOD ORDERABLES Final Res ult Performing Organization Address [facility] de Phone Number [facility] [address] [facility] from Last 3 Months or Most Recently Relevant to Health Maintenance Insurance [facility] SELECT MEDICARE [facility] Care Address: [facility] [id number] [place] [address] Advance Directives For more information, please contact: [phone] * Full Code (Latest Code Status on File) Date Activated Date Inactivated Comments 01/24/2025 3:48 PM 01/25/2025 7:39 PM * Full Code Date Activated Date Inactivated Comments 07/15/2024 2:07 PM 07/17/2024 7:55 PM * Full Code Date Activated Date Inactivated Comments 04/11/2019 1:26 PM 04/16/2019 6:19 PM Care Teams Ham Rolling Machine Operator Relationship Specialty Start Date End Date Orlando Zhang MD [address] [place] [address] PCP - General Family Medicine 03/01/19
--- NOTE | 2025-08-28 09:00 | US_ITS ---
FINAL REPORT CLINICAL HISTORY: .LT THYROID FNA X 2 NODULES-- GABO HUTSON FINDINGS: ULTRASOUND GUIDED THYROID BIOPSY HISTORY: Left thyroid nodules. ATTENDING RADIOLOGIST: Dr. Knapp PHYSICIAN CANARY RAISER: Gabo Rehman PA-C PROCEDURE: After informed consent was obtained and a time-out was performed, the patient was prepped and draped in usual sterile fashion over the left neck. Utilizing sterile technique with a 25-gauge needle, access to 2 separate lesions was obtained under direct ultrasound guidance. Three passes were made into 2 separate lesions. The patient tolerated procedure well and left the department in good condition. IMPRESSION: Status post ultrasound guided biopsy of 2 lesions within the left lobe of the thyroid without immediate complication. Reviewed, Interpreted and Dictated by Eleonora Knapp MD Transcribed by HARESH Card Authenticated and [facility]
== END 2025-08-28 23:59 | disposition home or self-care (01) ==
LOC: RAD 08:21
PROVIDERS: PCP Family Medicine; Visit Provider Internal Medicine Medical Oncology
DX: C34.90 Malignant neoplasm of unspecified part of unspecified bronchus or lung (principal); E04.2 Nontoxic multinodular goiter; R93.89 Abnormal findings on diagnostic imaging of other specified body structures
CPT/HCPCS: 10005